=== PATIENT | female | born 1960 | race Caucasian/White ===

== ENCOUNTER 2017-02-01 23:09 | Emergency (ER) | payer MEDICAID ==
[2017-02-01 23:09] VITALS: PULSE 71
[2017-02-02] MEDS ORDERED: Sodium Chloride 0.9% 500 ML IV ONE (00:15)
[2017-02-02] MEDS ORDERED: Albuterol-Ipratrop 3 mg / 0.5 (3 ml) UD IH STA (00:17)
[2017-02-02] MEDS ORDERED: Albuterol-Ipratrop 3 mg / 0.5 (3 ml) UD ONE (00:44)
[2017-02-02 00:53] LABS: BASO # 0.2 K/uL (0.0-0.2); BASO % 1.2 % (0.0-2.0); EOS # 0.3 K/uL (0.0-0.7); EOS % 1.9 % (0.0-4.0); HEMATOCRIT 35.3 % (34.0-47.0); LYMPH # 2.6 K/uL (1.0-4.3); LYMPH % 17.6 % (20.0-40.0); MEAN CELL VOLUME 80.9 fL (81.0-99.0); MEAN CORPUSCULAR HEMOGLOBIN 26.3 pg (27.0-31.0); MEAN CORPUSCULAR HGB CONC 32.5 g/dL (33.0-37.0); MEAN PLATELET VOLUME 7.7 fL (7.2-11.7); MONO # 0.6 K/uL (0.0-0.8); MONO % 4.4 % (0.0-10.0); RED CELL DISTRIBUTION WIDTH 15.9 % (11.5-14.5); WHITE BLOOD COUNT 14.5 K/uL (4.8-10.8)
[2017-02-02] MEDS ORDERED: Sodium Chloride 0.9% 1,000 ML ONE (00:53)
[2017-02-02 00:58] LABS: RBC URINE 1 /hpf (0-3); URINE BILIRUBIN NEGATIVE (NEGATIVE); URINE BLOOD NEGATIVE (NEGATIVE); URINE COLOR Yellow (YELLOW); URINE GLUCOSE (UA) NORMAL (Normal); URINE KETONE NEGATIVE (NEGATIVE); URINE LEUKOCYTE ESTERASE NEG Leu/uL (Negative); URINE PROTEIN 1+ mg/dL (NEGATIVE); URINE UROBILINOGEN NORMAL mg/dL (0.2-1.0); WBC URINE 1 /hpf (0-5)
--- NOTE | 2017-02-02 00:58 | C.PDOC ---
Time Seen by Provider: 02/02/17 00:02 Chief Complaint (Nursing): Flu-like Symptoms History Per: Patient Onset/Duration Of Symptoms: Days (1) Current Symptoms Are (Timing): Still Present Location Of Pain: Diffuse Myalgias Associated Symptoms: Cough, Myalgias Severity: Moderate Additional History Per: Prior Records Past Medical History Reviewed: Historical Data, Nursing Documentation, Vital Signs Vital Signs: Last Vital Signs Temp 99.3 F 02/01/17 23:23 Pulse 88 02/01/17 23:23 Resp 20 02/01/17 23:23 BP 148/88 02/01/17 23:23 Pulse Ox 94 L 02/02/17 01:00 - Medical History PMH: Anemia, Anxiety, Arthritis, Asthma, Cardia Arrhythmia, CHF, COPD, Depression, Emphysema, HTN, Osteoporosis, Rheumatoid Arthritis, Schizophrenia, Sleep Apnea Other PMH: Lupus Surgical History: Cholecystectomy, Tonsillectomy, Other Surgeries: IVC filter - [facility] Procedures NASAL LACERATION SUTURE (11/07/13) NON-INVASIVE MECHANICAL VENTILATION (07/19/14) TETANUS TOXOID ADMINIST (11/07/13) Family History: States: Unknown Family Hx, [place] (Mother) - Social History Hx Tobacco Use: No Hx Alcohol Use: Yes Hx Substance Use: No - Immunization History Hx Tetanus Toxoid Vaccination: Yes Hx Influenza Vaccination: No Hx Pneumococcal Vaccination: Yes Review Of Systems Except As Marked, All Systems Reviewed And Found Negative. Constitutional: Negative for: Fever Cardiovascular: Positive for: Chest Pain Respiratory: Positive for: Cough, Shortness of Breath (mild). Negative for: Hemoptysis Gastrointestinal: Negative for: Vomiting, Abdominal Pain, Diarrhea Genitourinary: Negative for: Dysuria Musculoskeletal: Positive for: Leg Pain. Negative for: Neck Pain, Back Pain Neurological: Negative for: Weakness, Numbness, Seizures, Altered Mental Status Physical Exam - Physical Exam Appears: No Acute Distress, Chronically Ill Skin: Warm, Dry Head: Atraumatic Eye(s): bilateral: PERRL, EOMI Neck: Normal ROM, Supple Cardiovascular: Rhythm Regular Respiratory: Normal Breath Sounds, No Accessory Muscle Use Gastrointestinal/Abdominal: Soft, No Tenderness Back: No CVA Tenderness Extremity: Normal ROM Neurological/Psych: Oriented x3, Normal Motor, Normal Sensation ED Course And Treatment - Laboratory Results Result Diagrams: 03/29/17 00:49 O2 Sat by Pulse Oximetry: 94 Disposition - Disposition Disposition Time: 01:00 Condition: FAIR - Clinical Impression Clinical Impression: SLE (systemic lupus erythematosus) Physician Patient Turnover Patient Signed Over To: Dakota Anderson Handoff Comments: to f/up labs and reassess pt after meds.
[2017-02-02 01:04] LABS: CHLORIDE 100 mmol/L (98-107); POTASSIUM 3.5 mmol/L (3.6-5.2); SODIUM 141 mmol/L (132-148)
[2017-02-02 01:06] LABS: AST/SGOT 27 U/L (14-36); BILIRUBIN,TOTAL 0.3 mg/dL (0.2-1.3); CARBON DIOXIDE 28 mmol/L (22-30); GFR AFRICAN-AMERICAN > 60
[2017-02-02 01:07] LABS: ALKALINE PHOSPHATASE 71 U/L (38-126); ALT/SGPT 35 U/L (9-52); BLOOD UREA NITROGEN 12 mg/dL (7-17); CALCIUM 8.5 mg/dl (8.6-10.4); GLUCOSE,RANDOM 144 mg/dL (65-105); TOTAL PROTEIN 7.2 g/dL (6.3-8.3)
[2017-02-02 02:24] VITALS: BP 150/77; PULSE 88; RESP 22; TEMP 99; O2SAT 95
--- NOTE | 2017-02-02 09:11 | RAD ---
PROCEDURE: CHEST RADIOGRAPH, 1 VIEW HISTORY: Cough. Left umm-cath. COMPARISON: 01/04/2017 FINDINGS: LUNGS: Mild venous congestion. Lines and tubes stable position. Elevated right hemidiaphragm. Patchy left basilar airspace opacity. PLEURA: As above. CARDIOVASCULAR: Normal. OSSEOUS STRUCTURES: No significant abnormalities. VISUALIZED UPPER ABDOMEN: Normal. OTHER FINDINGS: None. IMPRESSION: Mild venous congestion. Lines and tubes stable position. Elevated right hemidiaphragm. Patchy left basilar airspace opacity.
--- NOTE | 2017-02-02 10:43 | CARD ---
APPROVED REPORT EKG Measurement Heart [id number] <Conclusion> Normal sinus rhythm Nonspecific ST and T wave abnormality Abnormal ECG
== END 2017-02-02 02:26 | disposition home or self-care (01) ==
LOC: C.ER 23:09
DX: M32.9 Systemic lupus erythematosus, unspecified (principal)
CPT/HCPCS: 71010; 80053; 80162; 81001; 83880; 84484; 85025; 87804; 93005; 96361; 96374; 96375; 99285; C9113; J1885; J2930; J7040

== ENCOUNTER 2017-07-15 19:40 | Emergency (ER) | payer MEDICAID ==
[2017-07-15 19:40] VITALS: PULSE 71
[2017-07-15 20:01] VITALS: TEMP 98; O2SAT 98
[2017-07-15] MEDS ORDERED: Sodium Chloride 0.9% 1,000 ML IV ONE (20:59)
[2017-07-15] MEDS ORDERED: Sodium Chloride 0.9% 500 ML IV ONE (20:59)
[2017-07-15] MEDS ORDERED: Iohexol 240 (50 ml) PO ONE (21:00)
[2017-07-15] MEDS ORDERED: Nalbuphine 20 mg/ml Inj (1 ml) IVP STA (21:01)
--- NOTE | 2017-07-15 21:10 | C.PDOC ---
History Of Present Illness <Freddie Lujan E - Last Filed: 07/15/17 22:26> <MorseKirillAgustín R - Last Filed: 07/16/17 03:20> Patient is a 55 y/o female who presents to the ED with a complaint of abdominal pain. Patient reports having diarrhea for the past 2 weeks, and admits to treating pain with 2 bottles of pepto bismol since. Denies nausea/vomiting, SOB , dysuria, fever, and change in appetite. (Agustín Morse) <TaiLuisitoDevin - Last Filed: 07/15/17 22:26> History Per: Patient History/Exam Limitations: no limitations Onset/Duration Of Symptoms: Days (x2 weeks. ) Current Symptoms Are (Timing): Still Present Associated Symptoms: Diarrhea. denies: Nausea, Vomiting Recent travel outside of the [place]: No <Agustín Morse - Last Filed: 07/16/17 03:20> Time Seen by Provider: 07/15/17 20:12 Chief Complaint (Nursing): GI Problem Past Medical History Reviewed: Historical Data, Nursing Documentation, Vital Signs - Medical History PMH: Anemia, Anxiety, Arthritis, Asthma, Cardia Arrhythmia, CHF, COPD, Depression, Emphysema, HTN, Osteoporosis, Rheumatoid Arthritis, Schizophrenia, Sleep Apnea Denies: Chronic Kidney Disease Surgical History: Cholecystectomy, Tonsillectomy, Family History: States: Unknown Family Hx, [place] (Mother) - Social History Hx Tobacco Use: No Hx Alcohol Use: Yes Hx Substance Use: No - Immunization History Hx Tetanus Toxoid Vaccination: Yes Hx Influenza Vaccination: No Hx Pneumococcal Vaccination: Yes <Agustín Morse - Last Filed: 07/16/17 03:20> Vital Signs: Last Vital Signs Temp 98 F 07/15/17 19:54 Pulse 80 07/15/17 19:54 Resp 18 07/15/17 19:54 BP 121/79 07/15/17 19:54 Pulse Ox 98 07/16/17 03:17 - [facility] Procedures NASAL LACERATION SUTURE (11/07/13) NON-INVASIVE MECHANICAL VENTILATION (07/19/14) TETANUS TOXOID ADMINIST (11/07/13) Review Of Systems Constitutional: Negative for: Fever Cardiovascular: Negative for: Chest Pain Respiratory: Negative for: Shortness of Breath Gastrointestinal: Positive for: Abdominal Pain, Diarrhea. Negative for: Nausea , Vomiting Genitourinary: Negative for: Dysuria <LitoAgustín Elias - Last Filed: 07/16/17 03:20> Physical Exam - Physical Exam Appears: Well, Non-toxic Skin: Normal Color, Warm, Dry Head: Atraumatic, Normacephalic Oral Mucosa: Moist Chest: Symmetrical Cardiovascular: Rhythm Regular, No Murmur Respiratory: Normal Breath Sounds, No Rales, No Rhonchi, No Wheezing Gastrointestinal/Abdominal: Bowel Sounds (hyperactive), Tenderness (R side), No Guarding, No Rebound, Other (obese) Rectal: Normal Exam, Heme Negative, No Mass, No Tenderness Back: Normal Inspection Extremity: Normal ROM (x4) Neurological/Psych: Oriented x3, Normal Speech, Normal Cognition <Agustín Morse Jada - Last Filed: 07/16/17 03:20> ED Course And Treatment - Laboratory Results Result Diagrams: 07/15/17 21:50 07/15/17 21:50 <Freddie Lujan E - Last Filed: 07/15/17 22:26> - Laboratory Results Result Diagrams: 07/15/17 21:50 07/15/17 21:50 O2 Sat by Pulse Oximetry: 98 (room air) Pulse Ox Interpretation: Normal - CT Scan/US A/P Other Rad Studies (CT/US): Interpreted By Me, Read By Radiologist CT/US Interpretation: IMPRESSION: Atelectasis/scarring/hypoventilatory changes at the lung bases. Hepatosplenomegaly. IVC filter noted, prongs extend beyond wall limits. Small fat-containing umbilical hernia. Distal esophageal wall appears thickened. Colonic diverticula. Approximately 3.5 cm left adnexal cyst. Further evaluation with dedicated ultrasound recommended. Additional details/findings as above. US Pelvis/Transvag Other Rad Studies (CT/US): Interpreted By Me, Read By Radiologist CT/US Interpretation: IMPRESSION: Left ovarian cyst for which followup is recommended to ensure resolution. Progress Note: CT A/P, US abd, and UA ordered; Bentyl, Toradol, Nubain, Omnipaque, and IV fluids administered. 3:17am: no episodes of vomiting or diarrhea recorded. <Agustín Morse - Last Filed: 07/16/17 03:20> Medical Decision Making <Freddie Lujan E - Last Filed: 07/15/17 22:26> <Agustín Morse - Last Filed: 07/16/17 03:20> Medical Decision Making: Initially evaluated by MS4 under my supervision who did an adequate eval. Was asked by pt to whom he would be reported and when answered that the MS4 would report to Dr. Lujan, pt immediately argumentative and confrontational and demanded to be evaled by another physician. This MD asked pt what were her concerns and she immediately claimed she refused to discuss her complaints further. Pt liason informed and Dr. Morse appraised of this pt's situation. [place] had [place], extensive benzo and narcotics regimen from multiple prescribers. No further contact w this pt. (Freddie Lujan) Disposition <Freddie Lujan - Last Filed: 07/15/17 22:26> Counseled Patient/Family Regarding: Diagnosis - Disposition Disposition Time: 03:09 - POA Present On Arrival: None <Agustín Morse - Last Filed: 07/16/17 03:20> - Disposition Referrals: Isaac Willis MD [Primary Care Provider] - Disposition: HOME/ ROUTINE Condition: STABLE Prescriptions: traMADol/Acetaminophen [Ultracet 325 MG-37.5 MG] 1 tab PO Q4 #20 tab Instructions: Ovarian Cyst (ED), Uterine Fibroids (ED), Abdominal Pain (ED) Forms: [facility] ([place]izen [place]), Gen Discharge Inst Lithuanian Print Language: KOSOVAN - Clinical Impression Clinical Impression: Abdominal pain, Ovarian cyst, Uterine fibroid <Freddie Lujan - Last Filed: 07/15/17 22:26> - Scribe Statement The provider has reviewed the documentation as recorded by the Scribe <Agustín Morse - Last Filed: 07/16/17 03:20> - Scribe Statement Lora Albarran All medical record entries made by the Scribe were at my direction and personally dictated by me. I have reviewed the chart and agree that the record accurately reflects my personal performance of the history, physical exam, medical decision making, and the department course for this patient. I have also personally directed, reviewed, and agree with the discharge instructions and disposition. (Agustín Morse)
[2017-07-15] MEDS ORDERED: Iohexol 240 (50 ml) ONE (21:26)
[2017-07-15 22:00] LABS: BASO # 0.1 K/uL (0.0-0.2); BASO % 1.1 % (0.0-2.0); EOS # 0.2 K/uL (0.0-0.7); EOS % 1.6 % (0.0-4.0); HEMATOCRIT 41.9 % (34.0-47.0); LYMPH # 2.9 K/uL (1.0-4.3); LYMPH % 24.3 % (20.0-40.0); MEAN CELL VOLUME 80.7 fL (81.0-99.0); MEAN CORPUSCULAR HGB CONC 32.1 g/dL (33.0-37.0); MEAN PLATELET VOLUME 8.2 fL (7.2-11.7); MONO # 0.6 K/uL (0.0-0.8); MONO % 4.7 % (0.0-10.0); RED CELL DISTRIBUTION WIDTH 16.9 % (11.5-14.5)
[2017-07-15 22:02] LABS: CHLORIDE 105 mmol/L (98-107); POTASSIUM 4.1 mmol/L (3.6-5.2); SODIUM 144 mmol/L (132-148)
[2017-07-15 22:04] LABS: ALB/GLOB RATIO 1.1 (1.0-2.1); ALKALINE PHOSPHATASE 80 U/L (38-126); AST/SGOT 38 U/L (14-36); BILIRUBIN,TOTAL 0.6 mg/dL (0.2-1.3); CARBON DIOXIDE 24 mmol/L (22-30); GFR AFRICAN-AMERICAN > 60; TOTAL PROTEIN 8.2 g/dL (6.3-8.3)
[2017-07-15 22:05] LABS: ALT/SGPT 46 U/L (9-52); BLOOD UREA NITROGEN 16 mg/dL (7-17); CALCIUM 9.1 mg/dl (8.6-10.4); GLUCOSE,RANDOM 86 mg/dL (65-105); RBC URINE 1 /hpf (0-3); TRANSITIONAL EPITHIAL < 1 /hpf (0-3); URINE BACTERIA RARE (<OCC); URINE BILIRUBIN NEGATIVE (NEGATIVE); URINE BLOOD NEGATIVE (NEGATIVE); URINE COLOR Yellow (YELLOW); URINE GLUCOSE (UA) NORMAL (Normal); URINE KETONE NEGATIVE (NEGATIVE); URINE LEUKOCYTE ESTERASE NEG Leu/uL (Negative); URINE PROTEIN 1+ mg/dL (NEGATIVE); WBC URINE 1 /hpf (0-5)
[2017-07-15] MEDS ORDERED: Iodixanol 320 MG/ML 100 ML BOTTLE IV ONE (22:24)
--- NOTE | 2017-07-16 00:03 | CT ---
EXAM: CT Abdomen and Pelvis With Intravenous Contrast CLINICAL HISTORY: 56 years old, female; Pain and signs and symptoms; Vomiting; Abdominal pain; Generalized; Additional info: Abd pain TECHNIQUE: Axial computed tomography images of the abdomen and pelvis with intravenous contrast. All CT scans at this facility use one or more dose reduction techniques, viz.: automated exposure control; ma/kV adjustment per patient size (including targeted exams where dose is matched to indication; i.e. head); or iterative reconstruction technique. Coronal and sagittal reformatted images were created and reviewed. CONTRAST: 100 mL of VISIPAQUE 320 administered intravenously. COMPARISON: No relevant prior studies available. FINDINGS: Atelectasis/scarring/hypoventilatory changes at the lung bases. Hepatosplenomegaly. Status post cholecystectomy. The pancreas and adrenal glands demonstrate no acute abnormalities. The kidneys are symmetric with no evidence of hydronephrosis. The aorta is unremarkable. IVC filter noted, prongs extend beyond wall limits. Small fat-containing umbilical hernia. Enteric contrast within stomach and small bowel the time of imaging. Distal esophageal wall appears thickened. No small bowel obstruction. Colonic diverticula. Approximately 3.5 cm left adnexal cyst. Further evaluation with dedicated ultrasound recommended. No ascites. No free air. Degenerative changes, most notable at L5-S1. IMPRESSION: Atelectasis/scarring/hypoventilatory changes at the lung bases. Hepatosplenomegaly. IVC filter noted, prongs extend beyond wall limits. Small fat-containing umbilical hernia. Distal esophageal wall appears thickened. Colonic diverticula. Approximately 3.5 cm left adnexal cyst. Further evaluation with dedicated ultrasound recommended. Additional details/findings as above.
[2017-07-16] MEDS ORDERED: Nalbuphine 20 mg/ml Inj (1 ml) IVP STA (00:19)
[2017-07-16] MEDS ORDERED: Sodium Chloride 0.9% 2,000 ML ONE (02:25)
--- NOTE | 2017-07-16 03:03 | US ---
EXAM: US Pelvis Complete, Transabdominal US Pelvis, Transvaginal CLINICAL HISTORY: 56 years old, female; Pain; Pelvic pain; Additional info: Left adnexal mass/ cyst TECHNIQUE: Real-time transabdominal and transvaginal pelvic ultrasound (complete) with image documentation. Transvaginal imaging was used for better evaluation of the endometrium and adnexa. COMPARISON: No relevant prior studies available. FINDINGS: The uterus measures approximately 9 x 4.5 x 4 cm. The endometrium measures 4 mm. There is a 1.3 cm fibroid in the lower anterior uterus. The right ovary is suboptimally visualized. There is a 3.1 cm left ovarian cyst corresponding to that seen on CT. There is suggestion of a small amount of internal echoes. Vascular waveforms are demonstrated in the left ovary. IMPRESSION: Left ovarian cyst for which followup is recommended to ensure resolution. EXAM: US Pelvis, Transvaginal EXAM DATE/TIME: 07/16/2017 12:23 AM CLINICAL HISTORY: 56 years old, female; Pain; Pelvic pain; Additional info: Left adnexal mass/ cyst TECHNIQUE: Real-time transvaginal pelvic ultrasound (complete) with image documentation. Transvaginal imaging was used for better evaluation of the endometrium and adnexa. COMPARISON: CT - e+1 ABDOMEN/PELVIS PO/IV CONTRAST 07/15/2017 10:58:37 PM FINDINGS: The uterus measures approximately 9 x 4.5 x 4 cm. The endometrium measures 4 mm. There is a 1.3 cm fibroid in the lower anterior uterus. The right ovary is suboptimally visualized. There is a 3.1 cm left ovarian cyst corresponding to that seen on CT. There is suggestion of a small amount of internal echoes. Vascular waveforms are demonstrated in the left ovary.
[2017-07-16 03:27] VITALS: BP 120/70; PULSE 70; RESP 14
== END 2017-07-16 03:26 | disposition home or self-care (01) ==
LOC: C.ER 19:40
DX: D25.9 Leiomyoma of uterus, unspecified (principal); R10.2 Pelvic and perineal pain; N83.202 Unspecified ovarian cyst, left side
CPT/HCPCS: 74177; 76830; 76856; 80053; 81001; 83690; 85025; 96372; 96374; 96375; 96376; 99284; G0328; J0500; J1885; J2405; J7040; Q9966; Q9967

== ENCOUNTER 2017-08-14 18:22 | Emergency (ER) | payer MEDICAID ==
[2017-08-14 18:23] VITALS: PULSE 71
[2017-08-14 18:32] VITALS: BMI 39.5
--- NOTE | 2017-08-14 19:41 | C.PDOC ---
History Of Present Illness 56 year old female, history of lupus, rheumatoid arthritis, COPD, CAD, presents to the ED for evaluation of pain in posterior neck radiating up to her posterior head which is intermittent x 2 days. She notes a history of migraines and states pain is similar but lasting longer than her usual mirgraine. Pt c/o of photophobia, nausea. Patient also complaining of generalized body aches related to her chronic RA and lupus, not changed from baseline. She denies recent illness, cough, runny nose or dizziness. She has not taken any pain medications prior to arrival as she ran out of her chronic pain meds. Pt is requesting morphine 6 mg IM. Time Seen by Provider: 08/14/17 19:19 Chief Complaint (Nursing): Headache History Per: Patient History/Exam Limitations: no limitations Onset/Duration Of Symptoms: Intermittent Episodes Current Symptoms Are (Timing): Still Present Severity: Severe Pain Scale Rating Of: 10 Quality: Sharp, Pressure Associated Symptoms: Blurred Vision Past Medical History Reviewed: Historical Data, Nursing Documentation, Vital Signs Vital Signs: Last Vital Signs Temp 98.1 F 08/14/17 20:57 Pulse 76 08/14/17 20:57 Resp 18 08/14/17 20:57 BP 137/92 H 08/14/17 20:57 Pulse Ox 95 08/15/17 04:19 - Medical History PMH: Anemia, Anxiety, Arthritis, Asthma, Cardia Arrhythmia, CHF, COPD, Depression, Emphysema, HTN, Osteoporosis, Rheumatoid Arthritis, Schizophrenia, Sleep Apnea Denies: Chronic Kidney Disease Surgical History: Cholecystectomy, Tonsillectomy, - [facility] Procedures NASAL LACERATION SUTURE (11/07/13) NON-INVASIVE MECHANICAL VENTILATION (07/19/14) TETANUS TOXOID ADMINIST (11/07/13) Family History: States: Unknown Family Hx, [place] (Mother) - Social History Hx Tobacco Use: No Hx Alcohol Use: Yes Hx Substance Use: No - Immunization History Hx Tetanus Toxoid Vaccination: Yes Hx Influenza Vaccination: No Hx Pneumococcal Vaccination: Yes Review Of Systems ENT: Negative for: Nose Congestion Respiratory: Negative for: Cough Musculoskeletal: Positive for: Neck Pain, Other (Generalized myalgias ) Neurological: Positive for: Headache, Dizziness Physical Exam - Physical Exam Appears: Non-toxic, No Acute Distress Skin: Normal Color, Warm, Dry Head: Atraumatic, Normacephalic Eye(s): bilateral: Normal Inspection Neck: Normal, Normal ROM, No Midline Cervical Tenderness, Supple Cardiovascular: Rhythm Regular, No Murmur Respiratory: Normal Breath Sounds, No Wheezing Gastrointestinal/Abdominal: Normal Exam, Soft, No Tenderness Extremity: No Pedal Edema, No Calf Tenderness, No Deformity Extremity: Bilateral: Atraumatic, Normal Color And Temperature Neurological/Psych: Oriented x3, Normal Speech, Normal Cognition, Normal Motor, Normal Sensation Gait: Steady ED Course And Treatment O2 Sat by Pulse Oximetry: 95 Pulse Ox Interpretation: Normal Progress Note: Pt is in pain management program, requesting iM narcotics, pt states she usually get a headache with 'Bad Lupus pain" and pt was advised to follow up wit pMD for pain managemnet and return precautions were d/w pt who understand them. tramadol and prednisone PO with some pain improvement Disposition Counseled Patient/Family Regarding: Diagnosis, Need For Followup, Rx Given - Disposition Referrals: Isaac Willis MD [Staff Provider] - Disposition: HOME/ ROUTINE Disposition Time: 20:39 Condition: STABLE Additional Instructions: Please follow up with PMD Continue current management Follow up with PMD Return to ER if worse Prescriptions: predniSONE [Prednisone] 40 mg PO DAILY #8 tab Instructions: Musculoskeletal Pain (ED) Forms: [facility] (Hungarian) - Clinical Impression Clinical Impression: Chronic pain - Scribe Statement The provider has reviewed the documentation as recorded by the Scribe Dougie Francois
[2017-08-14] MEDS ORDERED: Tramadol 25 mg PO STA (19:59)
[2017-08-14 20:58] VITALS: BP 137/92; PULSE 76; RESP 18; TEMP 98.1
[2017-08-15 04:19] VITALS: O2SAT 95
== END 2017-08-14 20:58 | disposition home or self-care (01) ==
LOC: C.ER 18:22
DX: G89.29 Other chronic pain (principal); M06.9 Rheumatoid arthritis, unspecified; M19.90 Unspecified osteoarthritis, unspecified site; M32.9 Systemic lupus erythematosus, unspecified; I25.10 Atherosclerotic heart disease of native coronary artery without angina pectoris; J44.9 Chronic obstructive pulmonary disease, unspecified

== ENCOUNTER 2017-11-01 15:20 | Emergency (ER) | payer MEDICAID ==
[2017-11-01 15:20] VITALS: PULSE 71; BMI 39.5
[2017-11-01 16:55] VITALS: RESP 18
[2017-11-01 17:30] LABS: BASO # 0.1 K/uL (0.0-0.2); BASO % 0.7 % (0.0-2.0); EOS # 0.2 K/uL (0.0-0.7); EOS % 2.8 % (0.0-4.0); HEMATOCRIT 35.8 % (34.0-47.0); LYMPH % 27.2 % (20.0-40.0); MEAN CELL VOLUME 80.6 fL (81.0-99.0); MEAN CORPUSCULAR HEMOGLOBIN 26.8 pg (27.0-31.0); MEAN CORPUSCULAR HGB CONC 33.3 g/dL (33.0-37.0); MEAN PLATELET VOLUME 7.3 fL (7.2-11.7); MONO # 0.6 K/uL (0.0-0.8); MONO % 8.3 % (0.0-10.0); WHITE BLOOD COUNT 7.2 K/uL (4.8-10.8)
--- NOTE | 2017-11-01 17:37 | RAD ---
HISTORY: Cough, wheezing COMPARISON: Chest x-ray performed 02/02/17 TECHNIQUE: Chest PA and lateral FINDINGS: Examination limited by habitus. Single lead left-sided central venous catheter extends to the cavoatrial junction. LUNGS: Biapical pleural thickening. Subtle opacity at the right lung base ; developing infiltrate cannot be entirely excluded. Please note that chest x-ray has limited sensitivity for the detection of pulmonary masses. PLEURA: No significant pleural effusion identified. No definite pneumothorax . CARDIOVASCULAR: Cardiomegaly. OSSEOUS STRUCTURES: Degenerative changes. VISUALIZED UPPER ABDOMEN: Elevation of the right hemidiaphragm. OTHER FINDINGS: None. IMPRESSION: Single lead left-sided central venous catheter extends the cavoatrial junction. Borderline cardiomegaly. Biapical pleural thickening. Subtle opacity at the right lung base ; developing infiltrate cannot be entirely excluded. Correlate clinically.
[2017-11-01] MEDS: Albuterol-Ipratrop 3 mg / 0.5 (3 ml) UD IH SCH ×3 (17:40→18:01)
[2017-11-01 17:43] LABS: ALKALINE PHOSPHATASE 78 U/L (38-126); ALT/SGPT 25 U/L (9-52); AST/SGOT 29 U/L (14-36); BILIRUBIN,TOTAL 0.4 mg/dL (0.2-1.3); BLOOD UREA NITROGEN 15 mg/dL (7-17); CARBON DIOXIDE 30 mmol/L (22-30); CHLORIDE 99 mmol/L (98-107); GFR AFRICAN-AMERICAN > 60; GLUCOSE,RANDOM 139 mg/dL (65-105); POTASSIUM 3.9 mmol/L (3.6-5.2); SODIUM 136 mmol/L (132-148); TOTAL PROTEIN 7.6 g/dL (6.3-8.3)
[2017-11-01] MEDS ORDERED: Albuterol-Ipratrop 3 mg / 0.5 (3 ml) UD ONE (17:59)
--- NOTE | 2017-11-01 18:48 | C.PDOC ---
Time Seen by Provider: 11/01/17 15:34 Chief Complaint (Nursing): Cough, Cold, Congestion History Per: Patient Onset/Duration Of Symptoms: Days (2) Current Symptoms Are (Timing): Still Present Associated Symptoms: Fever, Sore Throat, Cough, Sputum, Myalgias, Nasal Congestion Severity: Moderate Additional History Per: Prior Records Past Medical History Reviewed: Historical Data, Nursing Documentation, Vital Signs Vital Signs: Last Vital Signs Temp 98.2 F 11/01/17 15:24 Pulse 72 11/01/17 15:24 Resp 18 11/01/17 16:51 BP 144/83 11/01/17 15:24 Pulse Ox 97 11/01/17 16:51 - Medical History PMH: Anemia, Anxiety, Arthritis, Asthma, Cardia Arrhythmia, CHF, COPD, Depression, Emphysema, HTN, Osteoporosis, Rheumatoid Arthritis, Schizophrenia, Sleep Apnea Surgical History: Cholecystectomy, Tonsillectomy, - [facility] Procedures NASAL LACERATION SUTURE (11/07/13) NON-INVASIVE MECHANICAL VENTILATION (07/19/14) TETANUS TOXOID ADMINIST (11/07/13) Family History: States: Unknown Family Hx, [place] (Mother) - Social History Hx Tobacco Use: No Hx Alcohol Use: Yes Hx Substance Use: No - Immunization History Hx Tetanus Toxoid Vaccination: Yes Hx Influenza Vaccination: No Hx Pneumococcal Vaccination: Yes Review Of Systems Except As Marked, All Systems Reviewed And Found Negative. Constitutional: Positive for: Fever, Malaise ENT: Positive for: Nose Congestion, Throat Pain (mild). Negative for: Ear Pain Cardiovascular: Negative for: Chest Pain Respiratory: Positive for: Cough, Wheezing. Negative for: Hemoptysis Gastrointestinal: Negative for: Vomiting, Abdominal Pain, Diarrhea Genitourinary: Negative for: Dysuria Musculoskeletal: Negative for: Neck Pain, Back Pain Skin: Negative for: Rash Neurological: Negative for: Weakness, Numbness, Seizures, Altered Mental Status Physical Exam - Physical Exam Appears: Non-toxic, No Acute Distress Skin: Normal Color, Warm, Dry, No Rash Head: Atraumatic, Normacephalic Eye(s): bilateral: Normal Inspection, PERRL, EOMI Oral Mucosa: Moist, No Drooling, No Trismus Throat: Erythema, No Exudate, No Drooling, No Mass Neck: Normal ROM, Supple Lymphatic: Adenopathy (right submandibular (vs. Sialadenitis)) Chest: Other (left side port) Cardiovascular: Rhythm Regular Respiratory: No Accessory Muscle Use, Wheezing Gastrointestinal/Abdominal: Soft, No Tenderness Back: No CVA Tenderness Extremity: Normal ROM Neurological/Psych: Oriented x3, Normal Speech, Normal Motor, Normal Sensation ED Course And Treatment - Laboratory Results Result Diagrams: 11/01/17 17:27 11/01/17 17:27 Lab Interpretation: No Acute Changes O2 Sat by Pulse Oximetry: 97 Pulse Ox Interpretation: Normal - Radiology CXR: Viewed By Me, Read By Radiologist CXR Interpretation: Yes: No Acute Disease Progress - Interventions Interventions:: Observation - Medications Administered Inhaled nebulized: Anticholinergic, Beta-2 agonist Intravenous: Corticosteroid, NSAID - Data Reviewed Data Reviewed: Lab, Diagnostic imaging, Old records - Patient Status Patient status: Mostly improved - Continuity of Care Discussed patient case with:: Patient, Family-HIPPA compliant, ED Nurse - Patient Plan Patient Plan: Discharge, F/U with PCP, Continue present meds Disposition Counseled Patient/Family Regarding: Studies Performed, Diagnosis, Need For Followup, Rx Given - Disposition Referrals: Isaac Willis MD [Staff Provider] - Disposition: HOME/ ROUTINE Disposition Time: 18:51 Condition: IMPROVED Additional Instructions: Follow up with your doctor. Return to the ER if you develop high fever, trouble breathing or swallowing, worsening of symptoms or if you have any other concerns. Prescriptions: Amoxicillin/Clavulanate [Augmentin 875 MG-125 MG] 1 tab PO BID #14 tab predniSONE [predniSONE Tab] 2 tab PO DAILY #10 tab Instructions: Acute Bronchitis (ED) - Clinical Impression Clinical Impression: Respiratory tract infection
[2017-11-01 19:03] VITALS: BP 138/80; PULSE 70; TEMP 98.1; O2SAT 96
== END 2017-11-01 19:03 | disposition home or self-care (01) ==
LOC: C.ER 15:20
DX: J98.8 Other specified respiratory disorders (principal); I10 Essential (primary) hypertension; I50.9 Heart failure, unspecified; J44.9 Chronic obstructive pulmonary disease, unspecified; M81.0 Age-related osteoporosis without current pathological fracture; M06.9 Rheumatoid arthritis, unspecified
CPT/HCPCS: 71020; 80053; 85025; 87804; 94640; 96374; 96375; 99285; C9113; J1885; J2930

== ENCOUNTER 2017-12-31 04:03 | Observation (INO) | payer MEDICAID ==
[2017-12-31 04:04] VITALS: BMI 39.5
[2017-12-31] MEDS ORDERED: Sodium Chloride 0.9% 1,000 ML IV STA (05:19)
[2017-12-31 05:42] LABS: BASO # 0.1 K/uL (0.0-0.2); BASO % 0.8 % (0.0-2.0); EOS # 0.4 K/uL (0.0-0.7); EOS % 2.3 % (0.0-4.0); HEMOGLOBIN 11.4 g/dL (11.0-16.0); LYMPH # 4.6 K/uL (1.0-4.3); LYMPH % 27.2 % (20.0-40.0); MEAN CELL VOLUME 80.7 fL (81.0-99.0); MEAN CORPUSCULAR HGB CONC 33.5 g/dL (33.0-37.0); MEAN PLATELET VOLUME 7.5 fL (7.2-11.7); MONO # 1.1 K/uL (0.0-0.8); MONO % 6.3 % (0.0-10.0); NEUT # 10.7 K/uL (1.8-7.0); NEUT % 63.4 % (50.0-75.0); RBC 4.22 Mil/uL (3.80-5.20); RED CELL DISTRIBUTION WIDTH 15.8 % (11.5-14.5)
[2017-12-31 05:44] LABS: WHITE BLOOD COUNT 16.8 K/uL (4.8-10.8)
[2017-12-31] MEDS ORDERED: Sodium Chloride 0.9% 1,000 ML ONE (05:45)
[2017-12-31] MEDS ORDERED: Morphine 4 MG/ML VIAL ONE ×2 (05:45→12:01)
[2017-12-31 05:48] LABS: PROTHROMBIN TIME 11.7 SECONDS (9.7-12.2)
[2017-12-31 05:53] LABS: ALB/GLOB RATIO 1.2 (1.0-2.1); ALBUMIN 3.8 g/dL (3.5-5.0); ALT/SGPT 27 U/L (9-52); AST/SGOT 22 U/L (14-36); BLOOD UREA NITROGEN 19 mg/dL (7-17); CALCIUM 7.9 mg/dl (8.6-10.4); GFR AFRICAN-AMERICAN > 60; GFR NON-AFRICAN AMERICAN > 60
[2017-12-31 06:03] LABS: CK-MB 1.19 ng/mL (0.0-3.38)
--- NOTE | 2017-12-31 06:17 | C.PDOC ---
History Of Present Illness Patient is a 57 y/o female, with a Hx of lupus, who presents to the ED with a complaint of a possible flare-up associated with diffuse body aches and chest pain. Patient reports to have gone out to eat Th night feeling fine, subsequently going to bed; patient then woke up at 1am complaining of body aches and chest pain, prompting ED visit. Patient has no other physical complaints at this time. Time Seen by Provider: 12/31/17 05:11 Chief Complaint (Nursing): Medical Clearance History Per: Patient History/Exam Limitations: no limitations Onset/Duration Of Symptoms: Hrs Current Symptoms Are (Timing): Still Present Recent travel outside of the [place]: No Past Medical History Reviewed: Historical Data, Nursing Documentation, Vital Signs Vital Signs: Last Vital Signs Temp 98.5 F 12/31/17 04:21 Pulse 85 12/31/17 06:52 Resp 16 12/31/17 06:52 BP 124/71 12/31/17 06:52 Pulse Ox 95 12/31/17 06:52 - Medical History PMH: Anemia, Anxiety, Arthritis, Asthma, Cardia Arrhythmia, CHF, COPD, Depression, Emphysema, HTN, Osteoporosis, Rheumatoid Arthritis, Schizophrenia, Sleep Apnea Denies: Chronic Kidney Disease Other PMH: Lupus Surgical History: Cholecystectomy, Tonsillectomy, - [facility] NASAL LACERATION SUTURE (11/07/13) NON-INVASIVE MECHANICAL VENTILATION (07/19/14) TETANUS TOXOID ADMINIST (11/07/13) Family History: States: [place] (Mother) - Social History Hx Tobacco Use: No Hx Alcohol Use: Yes Hx Substance Use: No - Immunization History Hx Tetanus Toxoid Vaccination: Yes Hx Influenza Vaccination: No Hx Pneumococcal Vaccination: Yes Review Of Systems Constitutional: Positive for: Malaise Cardiovascular: Positive for: Chest Pain. Negative for: Palpitations Respiratory: Negative for: Shortness of Breath Physical Exam - Physical Exam Appears: Well, Non-toxic, Other (uncomfortable) Skin: Normal Color, Warm, Dry, No Diaphoretic Head: Atraumatic, Normacephalic Eye(s): bilateral: Normal Inspection Oral Mucosa: Moist Chest: Symmetrical Cardiovascular: Rhythm Regular, No Murmur Respiratory: Normal Breath Sounds, No Accessory Muscle Use, No Rales, No Rhonchi , No Wheezing Gastrointestinal/Abdominal: Soft, No Tenderness, No Distention, No Guarding, No Rebound Neurological/Psych: Oriented x3, Normal Speech, Normal Cognition ED Course And Treatment - Laboratory Results Result Diagrams: 12/31/17 05:38 12/31/17 05:38 ECG Rhythm: Sinus Rhythm, ST/T Changes (ST/T abnormality in lateral leads) Interpretation Of ECG: shortened DE interval; prolonged QT interval. Rate From EC (bpm) O2 Sat by Pulse Oximetry: 96 Progress Note: EKG, CXR, UA, and blood work ordered. Morphine and IV fluids administered. Disposition - Disposition Disposition Time: 07:15 Condition: FAIR Forms: [facility] (Tristanian) - Clinical Impression Clinical Impression: Chest pain, SLE (systemic lupus erythematosus) - Scribe Statement The provider has reviewed the documentation as recorded by the Scribe Lora Albarran All medical record entries made by the Scribe were at my direction and personally dictated by me. I have reviewed the chart and agree that the record accurately reflects my personal performance of the history, physical exam, medical decision making, and the department course for this patient. I have also personally directed, reviewed, and agree with the discharge instructions and disposition. Physician Patient Turnover Patient Signed Over To: Dorothea Padilla Handoff Comments: dispo
--- NOTE | 2017-12-31 07:07 | RAD ---
Chest x-ray single frontal view History: Chest pain. Comparison: 11/01/2017 Findings: Mild to moderate venous congestion. Right hilar prominence. Patchy consolidative changes at the lateral aspect of right lung base. Lines and tubes in stable position. Radiopaque density projects over the left lung base, possibly external. Clinical correlation. Tortuous aorta. Degenerative changes in the spine and shoulders. Impression: Mild to moderate venous congestion. Right hilar prominence. Patchy consolidative changes at the lateral aspect of right lung base. Lines and tubes in stable position. Radiopaque density projects over the left lung base, possibly external. Clinical correlation.
[2017-12-31] MEDS ORDERED: Azithromycin 500mg/250ML NS 500 MG/250 ML BAG IVPB STA (07:46)
[2017-12-31 08:34] LABS: B-TYPE NATRIURETIC PEPTIDE 47.5 pg/mL (0-900)
[2017-12-31] MEDS: Enoxaparin 40 mg Syringe SC SCH (09:52)
[2017-12-31] MEDS: Pantoprazole 40 mg EC Tab PO SCH (09:52)
[2017-12-31 10:15] LABS: SQUAMOUS EPITHIAL 1 /hpf (0-5); URINE BILIRUBIN NEGATIVE (NEGATIVE); URINE BLOOD NEGATIVE (NEGATIVE); URINE CLARITY Clear (Clear); URINE COLOR Yellow (YELLOW); URINE GLUCOSE (UA) NORMAL (Normal); URINE HYALINE CAST 0-2 /lpf (0-2); URINE LEUKOCYTE ESTERASE NEG Leu/uL (Negative); URINE NITRATE NEGATIVE (NEGATIVE); URINE PROTEIN NEGATIVE (NEGATIVE); URINE UROBILINOGEN NORMAL mg/dL (0.2-1.0)
[2017-12-31 11:19] LABS: BARBITURATES, UR NEGATIVE (NEGATIVE); PHENCYCLIDINE, UR NEGATIVE (NEGATIVE)
[2017-12-31 11:22] LABS: BENZODIAZEPINES, UR POSITIVE (NEGATIVE); OPIATES, UR POSITIVE (NEGATIVE)
[2017-12-31] MEDS: Ciprofloxacin 400mg/200ml D5W 400 MG/200 ML BAG IVPB SCH ×2 (11:30→22:22)
[2017-12-31] MEDS ORDERED: Morphine 4 MG/ML VIAL IVP STA (11:30)
[2017-12-31] MEDS ORDERED: Azithromycin 500 MG in Sodium Chloride 0.9% 250 ML IVPB ONE (13:00)
--- NOTE | 2017-12-31 13:00 | CP.PCM.HP ---
<Kai Lambert - Last Filed: 12/31/17 15:13> History of Present Illness - History of Present Illness History of Present Illness: Ms. Lee is a 57 year old female with a PMHx of lupus, rheumatoid arthritis, chronic R leg DVT, CHF, COPD/asthma, sleep apnea who presents with diffuse body aches and chest pain which she attributes to a lupus flare-up. Upon arrival to the ED patient's CXR was concerning for pneunomia and admission warranted. As per the patient she states she spent her morning yesterday cleaning her house and felt fine. She went out to dinner with her family for her birthday and symptom onset was during this time, at around 9pm she began feeling diffuse body aches in her shoulders, arms, hands, legs and feet, typical of her lupus flare-ups. She returned home at 11:30pm, at which time she began to feel sharp, constant pain in her bilateral upper chest, right greater than left side, worse with breathing and palpating the area. She states that she does not normally get chest pain with her lupus flare-ups. She also reports feeling generally tired, weak, and short of breath. She went to sleep (requiring 4 pillows) but was awoken by pain at 1am. She called the ambulance at 1am for diffuse body pain and chest pain. She came to the emergency department anticipating that she had a lupus flare up but during her workup her CXR was concerning for PNA. Patient denies recent illness, fever, nausea, vomiting, diarrhea, constipation, urinary changes. She has been eating well. She last saw her feed elevator worker Dr. Matos on October 17, 2017 (she sees him every 3 months). She last saw her fire protection fabricator Dr. Choi 5 months ago and was started on a CPAP machine, but she states that the machine broke and she hasn't used it in the last 5 months. She reports a negative PPD 3 years ago. Last received PNA shot 5 years ago. Chest x-ray in the ED: Mild to moderate venous congestion. Right hilar prominence. Patchy consolidative changes at the lateral aspect of the right lung base. Lines and tubes in stable position. Radioopaque density projects over the left lung base, possibly external. PMD: [employer] Rn: Desmond Matos Folder Operator: Dr. Choi Tip Bander: Otilio Merrill PMH: rheumatoid arthritis, lupus, R leg chronic DVT (diagnosed 9 years ago; was initially on Coumadin and then taken off once IVC filter was placed [address] Tavera), CHF, COPD/asthma, sleep apnea (not currently using CPAP because machine broke), HTN, depression PSH: IVC filter (placed by Dr. Tavera 8 years ago), left chest portacath for IV medication (because patient states that she does not have "easy veins"), tonsillectomy, , cholecystectomy Medications: Prednisone taper as needed, Ventolin 3x/day, nebulizer machine MWF , Digoxin 125mg once daily, Folic Acid 1mg once daily, Plaquenil 200mg twice daily, Methotrexate 2.5mg 6 tablets every Tuesday, [place]yster [place] calcium-Vit D twice daily, Omeprazole 20mg once daily when needed, Duloxetin Hcl 60mg once daily, Xanax 1mg three times daily, Acetaminophen-Codeine 4mg four times daily or as needed for pain. Current Pharmacy: [facility] ([facility]) Allergies: Hydromorphone Hcl (reports anaphylaxis), Meperidine Hcl (reports anaphylaxis) Family History: Father-cirrhosis; Mother-CAD Social history: lives in [place] with 2 daughters and 1 granddaughter; unemployed on disability; uses cane to ambulate; smokes 2-3 cigarattes per day since age 20; drinks 9oz of wine every Tuesday, Tuesday, Tuesday; no current use of recreational drugs; history of marijuana/cocaine use with last use 8 years ago Code status: full code Patient states that in the event she is unable to make health care decisions, she wants her daughter Michelle Lee to make decisions for her ([phone]) Present on Admission - Present on Admission Any Indicators Present on Admission: Yes History of DVT/PE: Yes Review of Systems - Constitutional Constitutional: Sleep Apnea (hx of), Weakness (generalixed). absent: Fever - EENT Eyes: absent: Change in Vision Nose/Mouth/Throat: absent: Nasal Congestion, Sinus Pain, Sore Throat - Cardiovascular Cardiovascular: Chest Pain, Dyspnea. absent: Diaphoresis, Syncope - Respiratory Respiratory: Cough, Dyspnea, Wheezing - Gastrointestinal Gastrointestinal: absent: Abdominal Pain, Constipation, Diarrhea, Nausea, Vomiting - Genitourinary Genitourinary: absent: Dysuria - Neurological Neurological: absent: Dizziness, Numbness, Focal Weakness, Syncope, Tingling Past Patient History - Infectious Disease Hx of Infectious Diseases: None - Past Medical History & Family History Past Medical History?: Yes - Past Social History Smoking Status: Light Smoker < 10 Cigarettes Daily - CARDIAC Hx Cardia Arrhythmia: Yes Hx Congestive Heart Failure: Yes Hx Hypertension: Yes - PULMONARY Hx Asthma: Yes Hx Chronic Obstructive Pulmonary Disease (COPD): Yes Hx Emphysema: Yes Hx Sleep Apnea: Yes - NEUROLOGICAL Hx Neurological Disorder: No - HEENT Hx HEENT Problems: No - RENAL Hx Chronic Kidney Disease: No - ENDOCRINE/METABOLIC Hx Endocrine Disorders: No Hx Systemic Lupus Erythematosus: Yes Other/Comment: 'A LITTLE BIT OF DIABETES" - HEMATOLOGICAL/ONCOLOGICAL Hx Anemia: Yes - INTEGUMENTARY Hx Dermatological Problems: No - MUSCULOSKELETAL/RHEUMATOLOGICAL Hx Arthritis: Yes Hx Osteoporosis: Yes Hx Rheumatoid Arthritis: Yes - GASTROINTESTINAL Hx Gastrointestinal Disorders: No - GENITOURINARY/GYNECOLOGICAL Hx Genitourinary Disorders: No - PSYCHIATRIC Hx Anxiety: Yes Hx Depression: Yes Hx Schizophrenia: Yes Hx Substance Use: No - SURGICAL HISTORY Hx Cholecystectomy: Yes Hx Tonsillectomy: Yes - ANESTHESIA Hx Anesthesia: Yes Hx Anesthesia Reactions: No Hx Malignant Hyperthermia: No Meds Allergies/Adverse Reactions: Allergies Allergy/AdvReac Type Severity Reaction Status Date / Time hydromorphone HCl Allergy Severe ANAPHYLAXIS Verified 11/01/17 15:27 [From Dilaudid] meperidine HCl [From Demerol] Allergy Severe ANAPHYLAXIS Verified 11/01/17 15:27 Physical Exam - Head Exam Head Exam: ATRAUMATIC, NORMOCEPHALIC - Eye Exam Eye Exam: EOMI, Normal appearance - ENT Exam ENT Exam: Mucous Membranes Moist - Respiratory Exam Respiratory Exam: Wheezes (prolonged expiratory phase with wheezing). absent: Rales, Rhonchi, Respiratory Distress - Cardiovascular Exam Cardiovascular Exam: REGULAR RHYTHM, +S1, +S2 - GI/Abdominal Exam GI & Abdominal Exam: Soft. absent: Distended, Tenderness - Extremities Exam Extremities exam: Negative for: pedal edema, tenderness - Neurological Exam Neurological exam: Alert, CN II-XII Intact, Oriented x3 - Psychiatric Exam Psychiatric exam: Normal Affect, Normal Mood - Skin Skin Exam: Dry, Warm Results - Vital Signs Recent Vital Signs: Last Vital Signs Temp 98.5 F 12/31/17 04:21 Pulse 85 12/31/17 06:52 Resp 16 12/31/17 06:52 BP 124/71 12/31/17 06:52 Pulse Ox 96 12/31/17 07:16 - Labs Result Diagrams: 12/31/17 05:38 12/31/17 05:38 Labs: Laboratory Results - last 24 hr 12/31/17 12/31/17 12/31/17 05:38 05:38 05:38 WBC 16.8 H D RBC 4.22 Hgb 11.4 Hct 34.1 MCV 80.7 L MCH 27.0 MCHC 33.5 RDW 15.8 H Plt Count 351 D MPV 7.5 Neut % (Auto) 63.4 Lymph % (Auto) 27.2 Schley % (Auto) 6.3 Eos % (Auto) 2.3 Baso % (Auto) 0.8 Neut # (Auto) 10.7 H Lymph # (Auto) 4.6 H Schley # (Auto) 1.1 H Eos # (Auto) 0.4 Baso # (Auto) 0.1 ESR 43 H PT 11.7 INR 1.0 APTT 25 Sodium 140 Potassium 3.7 Chloride 101 Carbon Dioxide 26 Anion Gap 16 BUN 19 H Creatinine 0.8 Est GFR ( Amer) > 60 Est GFR (Non-Af Amer) > 60 Random Glucose 118 H Calcium 7.9 L Total Bilirubin 0.2 AST 22 ALT 27 Alkaline Phosphatase 73 Total Creatine Kinase 113 CK-MB (Mass) 1.19 Troponin I < 0.0120 NT-Pro-B Natriuret Pep 47.5 Total Protein 6.9 Albumin 3.8 Globulin 3.1 Albumin/Globulin Ratio 1.2 Urine Color Urine Clarity Urine pH Ur Specific [place] Urine Protein Urine Glucose (UA) Urine Ketones Urine Blood Urine Nitrate Urine Bilirubin Urine Urobilinogen Ur Leukocyte Esterase Urine WBC (Auto) Urine RBC (Auto) Ur Squamous Epith Cells Hyaline Casts Digoxin Urine Opiates Screen Urine Methadone Screen Ur Barbiturates Screen Ur Phencyclidine Scrn Ur Amphetamines Screen U Benzodiazepines Scrn U Oth Cocaine Metabols U Cannabinoids Screen Influenza Typ A,B (EIA) Ur L.pneumophila Ag 12/31/17 12/31/17 12/31/17 08:56 10:00 10:30 WBC RBC Hgb Hct MCV MCH MCHC RDW Plt Count MPV Neut % (Auto) Lymph % (Auto) Schley % (Auto) Eos % (Auto) Baso % (Auto) Neut # (Auto) Lymph # (Auto) Schley # (Auto) Eos # (Auto) Baso # (Auto) ESR PT INR APTT Sodium Potassium Chloride Carbon Dioxide Anion Gap BUN Creatinine Est GFR ( Amer) Est GFR (Non-Af Amer) Random Glucose Calcium Total Bilirubin AST ALT Alkaline Phosphatase Total Creatine Kinase CK-MB (Mass) Troponin I NT-Pro-B Natriuret Pep Total Protein Albumin Globulin Albumin/Globulin Ratio Urine Color Yellow Urine Clarity Clear Urine pH 5.0 Ur Specific [place] 1.019 Urine Protein Negative Urine Glucose (UA) Normal Urine Ketones Negative Urine Blood Negative Urine Nitrate Negative Urine Bilirubin Negative Urine Urobilinogen Normal Ur Leukocyte Esterase Neg Urine WBC (Auto) 1 Urine RBC (Auto) < 1 Ur Squamous Epith Cells 1 Hyaline Casts 0-2 Digoxin 0.5 L Urine Opiates Screen Urine Methadone Screen Ur Barbiturates Screen Ur Phencyclidine Scrn Ur Amphetamines Screen U Benzodiazepines Scrn U Oth Cocaine Metabols U Cannabinoids Screen Influenza Typ A,B (EIA) Negative for flu a/b Ur L.pneumophila Ag 12/31/17 12/31/17 12/31/17 10:30 11:00 11:47 WBC RBC Hgb Hct MCV MCH MCHC RDW Plt Count MPV Neut % (Auto) Lymph % (Auto) Sch[place] % (Auto) Eos % (Auto) Baso % (Auto) Neut # (Auto) Lymph # (Auto) Schley # (Auto) Eos # (Auto) Baso # (Auto) ESR PT INR APTT Sodium Potassium Chloride Carbon Dioxide Anion Gap BUN Creatinine Est GFR ( Amer) Est GFR (Non-Af Amer) Random Glucose Calcium Total Bilirubin AST ALT Alkaline Phosphatase Total Creatine Kinase CK-MB (Mass) Troponin I < 0.0120 NT-Pro-B Natriuret Pep Total Protein Albumin Globulin Albumin/Globulin Ratio Urine Color Urine Clarity Urine pH Ur Specific [place] Urine Protein Urine Glucose (UA) Urine Ketones Urine Blood Urine Nitrate Urine Bilirubin Urine Urobilinogen Ur Leukocyte Esterase Urine WBC (Auto) Urine RBC (Auto) Ur Squamous Epith Cells Hyaline Casts Digoxin Urine Opiates Screen Positive H Urine Methadone Screen Negative Ur Barbiturates Screen Negative Ur Phencyclidine Scrn Negative Ur Amphetamines Screen Negative U Benzodiazepines Scrn Positive U Oth Cocaine Metabols Negative U Cannabinoids Screen Negative Influenza Typ A,B (EIA) Ur L.pneumophila Ag Negative Assessment & Plan - Assessment and Plan (Free Text) Plan: Community acquired pneumonia with risk for pseudomonas History of COPD/CHF puts patient at risk Consult placed to infectious disease specialist Dr. Valencia Medications: Azithromycin 500mg IVPB once daily (started in ED on 12/31/17) Ceftriaxone 1 gram IVPB once daily (started 01/01/18) Ciprofloxacin 400mg IVPB q12 hours (started 12/31/17) Oseltamivir Phosphate (Tamiflu Cap) 75mg PO BID (12/31 through 01/05) given prophylactically despite negative rapid influenza test, as rapid flu can be negative 20-25% of the time in the first 24-48 hours. Imaging: Chest x-ray (12/31/17): Mild to moderate venous congestion. Right hilar prominence. Patchy consolidative changes at the lateral aspect of the right lung base. Lines and tubes in stable position. Radioopaque density projects over the left lung base, possibly external. Labs: WBC (12/31/17): 16.8 Influenza Typ A,B: negative for flu a/b Ur L.pneumophilia Ag: negative follow up mycoplasma, strep pneumo Chest pain Consider secondary to pneumonia, myocardial infarction/ischemia, pulmonary embolism, lupus exacerbation Chest x-ray (12/31/17): Mild to moderate venous congestion. Right hilar prominence. Patchy consolidative changes at the lateral aspect of the right lung base. Lines and tubes in stable position. Radioopaque density projects over the left lung base, possibly external. Labs: Troponin negative x 2. Follow-up remaining troponin. EKG NSR x2; follow up remaining Echocardiogram completed follow up results Follow up labs: TSH, Free T4, Lipid Panel, Magnesium, Phosphorus ordered History of COPD/asthma Consult placed to fire protection fabricator Dr. Choi Medications: Albuterol/Ipratropium (DuoNeb) 3mL INH RQ6 Fluticasone/Salmeterol (Advair Diskus 250/50) 1 puff INH RQ12 Methylprednisolone (Solu-Medrol) 40mg IVP Q8H Chest x-ray (12/31/17): Mild to moderate venous congestion. Right hilar prominence. Patchy consolidative changes at the lateral aspect of the right lung base. Lines and tubes in stable position. Radioopaque density projects over the left lung base, possibly external. Labs: Bicarbonate: 26 History of Congestive Heart Failure Medications: Digoxin 0.125mg PO daily Labs: Pro-B LANDFILL GRADER: 47.5 Dig level: 0.5 (low) She does not take any medications for HTN/CHF other than Digoxin. She is a patient of Dr. Woodward but has not followed up with him in several months. Monitor vitals and start meds as needed. consider cardio consult prn. History of Lupus Home Medications Continued: Calcium/Vitamin D 1 tab PO TID Folic Acid 1mg PO daily Hydroxychloroquine Sulfate (Plaquenil) 200mg PO BID Methotrexate 15mg PO once/week (Tuesday) Narcotics discontinued- level of pain does not seem appropriate for opioid medications. Treat pain with tylenol prn and reassess as needed. History of Rheumatoid Arthritis Medications: Calcium/Vitamin D 1 tab PO TID Folic Acid 1mg PO daily Hydroxychloroquine Sulfate (Plaquenil) 200mg PO BID Methotrexate 15mg PO once/week (Tuesday) Methylprednisolone (Solu-Medrol) 40mg IVP Q8H Narcotics discontinued History of chronic DVT RLE- s/p IVC filter Medications: Enoxaparin (Lovenox) 40mg SC daily Most recent lower extremity doppler was negative in January 2017 INR on admission 1.0 History of Depression Medications: Cymbalta (Duloxetine Hcl) 60mg PO daily Xanax (alprazolam) 0.5mg PO Q8H PRN anxiety Hx of Drug Abuse UDS positive for benzo and opiates Prophylaxis DVT: risk score of 7; Enoxaparin (Lovenox) 40mg SC daily GI: Pantoprazole (Protonix) 40mg PO daily Heart healthy, carbohydrate controlled diet Florastor daily Case discussed with Dr. Lázaro Lambert D.O. <Kip Sesay - Last Filed: 12/31/17 16:07> Results - Vital Signs Recent Vital Signs: Last Vital Signs Temp 98.5 F 12/31/17 04:21 Pulse 85 12/31/17 06:52 Resp 16 12/31/17 06:52 BP 124/71 12/31/17 06:52 Pulse Ox 96 12/31/17 07:16 - Labs Result Diagrams: 12/31/17 05:38 12/31/17 05:38 Labs: Laboratory Results - last 24 hr 12/31/17 12/31/17 12/31/17 05:38 05:38 05:38 WBC 16.8 H D RBC 4.22 Hgb 11.4 Hct 34.1 MCV 80.7 L MCH 27.0 MCHC 33.5 RDW 15.8 H Plt Count 351 D MPV 7.5 Neut % (Auto) 63.4 Lymph % (Auto) 27.2 Schley % (Auto) 6.3 Eos % (Auto) 2.3 Baso % (Auto) 0.8 Neut # (Auto) 10.7 H Lymph # (Auto) 4.6 H Schley # (Auto) 1.1 H Eos # (Auto) 0.4 Baso # (Auto) 0.1 ESR 43 H PT 11.7 INR 1.0 APTT 25 Sodium 140 Potassium 3.7 Chloride 101 Carbon Dioxide 26 Anion Gap 16 BUN 19 H Creatinine 0.8 Est GFR ( Amer) > 60 Est GFR (Non-Af Amer) > 60 Random Glucose 118 H Calcium 7.9 L Total Bilirubin 0.2 AST 22 ALT 27 Alkaline Phosphatase 73 Total Creatine Kinase 113 CK-MB (Mass) 1.19 Troponin I < 0.0120 NT-Pro-B Natriuret Pep 47.5 Total Protein 6.9 Albumin 3.8 Globulin 3.1 Albumin/Globulin Ratio 1.2 Urine Color Urine Clarity Urine pH Ur Specific [place] Urine Protein Urine Glucose (UA) Urine Ketones Urine Blood Urine Nitrate Urine Bilirubin Urine Urobilinogen Ur Leukocyte Esterase Urine WBC (Auto) Urine RBC (Auto) Ur Squamous Epith Cells Hyaline Casts Digoxin Urine Opiates Screen Urine Methadone Screen Ur Barbiturates Screen Ur Phencyclidine Scrn Ur Amphetamines Screen U Benzodiazepines Scrn U Oth Cocaine Metabols U Cannabinoids Screen Influenza Typ A,B (EIA) Ur L.pneumophila Ag 12/31/17 12/31/17 12/31/17 08:56 10:00 10:30 WBC RBC Hgb Hct MCV MCH MCHC RDW Plt Count MPV Neut % (Auto) Lymph % (Auto) [place] % (Auto) Eos % (Auto) Baso % (Auto) Neut # (Auto) Lymph # (Auto) [place] # (Auto) Eos # (Auto) Baso # (Auto) ESR PT INR APTT Sodium Potassium Chloride Carbon Dioxide Anion Gap BUN Creatinine Est GFR ( Amer) Est GFR (Non-Af Amer) Random Glucose Calcium Total Bilirubin AST ALT Alkaline Phosphatase Total Creatine Kinase CK-MB (Mass) Troponin I NT-Pro-B Natriuret Pep Total Protein Albumin Globulin Albumin/Globulin Ratio Urine Color Yellow Urine Clarity Clear Urine pH 5.0 Ur Specific [place] 1.019 Urine Protein Negative Urine Glucose (UA) Normal Urine Ketones Negative Urine Blood Negative Urine Nitrate Negative Urine Bilirubin Negative Urine Urobilinogen Normal Ur Leukocyte Esterase Neg Urine WBC (Auto) 1 Urine RBC (Auto) < 1 Ur Squamous Epith Cells 1 Hyaline Casts 0-2 Digoxin 0.5 L Urine Opiates Screen Urine Methadone Screen Ur Barbiturates Screen Ur Phencyclidine Scrn Ur Amphetamines Screen U Benzodiazepines Scrn U Oth Cocaine Metabols U Cannabinoids Screen Influenza Typ A,B (EIA) Negative for flu a/b Ur L.pneumophila Ag 12/31/17 12/31/17 12/31/17 10:30 11:00 11:47 WBC RBC Hgb Hct MCV MCH MCHC RDW Plt Count MPV Neut % (Auto) Lymph % (Auto) [place] % (Auto) Eos % (Auto) Baso % (Auto) Neut # (Auto) Lymph # (Auto) [place] # (Auto) Eos # (Auto) Baso # (Auto) ESR PT INR APTT Sodium Potassium Chloride Carbon Dioxide Anion Gap BUN Creatinine Est GFR ( Amer) Est GFR (Non-Af Amer) Random Glucose Calcium Total Bilirubin AST ALT Alkaline Phosphatase Total Creatine Kinase CK-MB (Mass) Troponin I < 0.0120 NT-Pro-B Natriuret Pep Total Protein Albumin Globulin Albumin/Globulin Ratio Urine Color Urine Clarity Urine pH Ur Specific [place] Urine Protein Urine Glucose (UA) Urine Ketones Urine Blood Urine Nitrate Urine Bilirubin Urine Urobilinogen Ur Leukocyte Esterase Urine WBC (Auto) Urine RBC (Auto) Ur Squamous Epith Cells Hyaline Casts Digoxin Urine Opiates Screen Positive H Urine Methadone Screen Negative Ur Barbiturates Screen Negative Ur Phencyclidine Scrn Negative Ur Amphetamines Screen Negative U Benzodiazepines Scrn Positive U Oth Cocaine Metabols Negative U Cannabinoids Screen Negative Influenza Typ A,B (EIA) Ur L.pneumophila Ag Negative Attending/Attestation - Attestation I have personally seen and examined this patient.: Yes I have fully participated in the care of the patient.: Yes I have reviewed all pertinent clinical information: Yes Notes (Text): 12/31/17 16:07 Patient was seen and examined shortly after resident. History, Physical, Assessment and Plan were gone over with the resident. Kip Sesay D.O.
--- NOTE | 2017-12-31 14:22 | CP.PCM.CON ---
History of Present Illness - History of Present Illness History of Present Illness: reason for consultation: shortness of breath 57-year-old female with history of COPD/asthma, obstructive sleep apnea, a right leg DVT, rheumatoid arthritis, lupus who presented to emergency room with generalized aches and pains, chest pain and shortness of breath. Chest x-ray done in the emergency room was concerning for pneumonia. PMH: rheumatoid arthritis, lupus, R leg chronic DVT (diagnosed 9 years ago; was initially on Coumadin and then taken off once IVC filter was placed [address] Tavera), CHF, COPD/asthma, sleep apnea (not currently using CPAP because machine broke), HTN, depression PSH: IVC filter (placed by Dr. Tavera 8 years ago), left chest portacath for IV medication (because patient states that she does not have "easy veins"), tonsillectomy, , cholecystectomy Medications: Prednisone taper as needed, Ventolin 3x/day, nebulizer machine MWF , Digoxin 125mg once daily, Folic Acid 1mg once daily, Plaquenil 200mg twice daily, Methotrexate 2.5mg 6 tablets every Tuesday, Oyster shell calcium-Vit D twice daily, Omeprazole 20mg once daily when needed, Duloxetin Hcl 60mg once daily, Xanax 1mg three times daily, Acetaminophen-Codeine 4mg four times daily or as needed for pain. Current Pharmacy: [facility] ([facility]) Allergies: Hydromorphone Hcl (reports anaphylaxis), Meperidine Hcl (reports anaphylaxis) Family History: Father-cirrhosis; Mother-CAD Review of Systems - Review of Systems All systems: reviewed and no additional remarkable complaints except (shortness of breath and chest pain) Past Patient History - Infectious Disease Hx of Infectious Diseases: None - Past Medical History & Family History Past Medical History?: Yes - Past Social History Smoking Status: Light Smoker < 10 Cigarettes Daily - CARDIAC Hx Cardia Arrhythmia: Yes Hx Congestive Heart Failure: Yes Hx Hypertension: Yes - PULMONARY Hx Asthma: Yes Hx Chronic Obstructive Pulmonary Disease (COPD): Yes Hx Emphysema: Yes Hx Sleep Apnea: Yes - NEUROLOGICAL Hx Neurological Disorder: No - HEENT Hx HEENT Problems: No - RENAL Hx Chronic Kidney Disease: No - ENDOCRINE/METABOLIC Hx Endocrine Disorders: No Hx Systemic Lupus Erythematosus: Yes Other/Comment: 'A LITTLE BIT OF DIABETES" - HEMATOLOGICAL/ONCOLOGICAL Hx Anemia: Yes - INTEGUMENTARY Hx Dermatological Problems: No - MUSCULOSKELETAL/RHEUMATOLOGICAL Hx Arthritis: Yes Hx Osteoporosis: Yes Hx Rheumatoid Arthritis: Yes - GASTROINTESTINAL Hx Gastrointestinal Disorders: No - GENITOURINARY/GYNECOLOGICAL Hx Genitourinary Disorders: No - PSYCHIATRIC Hx Anxiety: Yes Hx Depression: Yes Hx Schizophrenia: Yes Hx Substance Use: No - SURGICAL HISTORY Hx Cholecystectomy: Yes Hx Tonsillectomy: Yes - ANESTHESIA Hx Anesthesia: Yes Hx Anesthesia Reactions: No Hx Malignant Hyperthermia: No Meds Allergies/Adverse Reactions: Allergies Allergy/AdvReac Type Severity Reaction Status Date / Time hydromorphone HCl Allergy Severe ANAPHYLAXIS Verified 11/01/17 15:27 [From Dilaudid] meperidine HCl [From Demerol] Allergy Severe ANAPHYLAXIS Verified 11/01/17 15:27 - Medications Medications: Current Medications Albuterol/Ipratropium (Duoneb 3 Mg/0.5 Mg (3 Ml) Ud) 3 ml INH RQ6 [facility] Stop: 01/01/18 14:00 Alprazolam (Xanax) 0.5 mg PO Q8H PRN PRN Reason: Anxiety Calcium/Vitamin D (Oyster Shell Calcium/Vitamin D 500 Mg-200 Iu) 1 tab PO TID [facility] Digoxin (Digoxin) 0.125 mg PO DAILY@1800 [facility] Duloxetine HCl (Cymbalta) 60 mg PO DAILY [facility] Last Admin: 12/31/17 09:51 Dose: 60 mg Enoxaparin Sodium (Lovenox) 40 mg SC DAILY [facility] Last Admin: 12/31/17 09:52 Dose: 40 mg Folic Acid (Folic Acid) 1 mg PO DAILY [facility] Last Admin: 12/31/17 09:51 Dose: 1 mg Hydroxychloroquine Sulfate (Plaquenil) 200 mg PO BID [facility] Last Admin: 12/31/17 09:52 Dose: 200 mg Ciprofloxacin (Cipro 400mg/200ml Dsw) 400 mg in 200 mls @ 133 mls/hr IVPB Q12H [facility] Last Admin: 12/31/17 11:30 Dose: 133 mls/hr Ceftriaxone Sodium 1 gm/ (Sodium Chloride) 100 mls @ 100 mls/hr IVPB DAILY [facility] Azithromycin 500 mg/ Sodium (Chloride) 250 mls @ 250 mls/hr IVPB Q24H [facility] Azithromycin 500 mg/ Sodium (Chloride) 250 mls @ 167 mls/hr IVPB ONCE ONE Stop: 12/31/17 14:29 Last Admin: 12/31/17 13:42 Dose: 167 mls/hr Methotrexate (Methotrexate) 15 mg PO QD7 [facility] Methylprednisolone (Solu-Medrol) 40 mg IVP Q8 [facility] Oseltamivir Phosphate (Tamiflu Cap) 75 mg PO BID [facility] Stop: 01/05/18 10:04 Last Admin: 12/31/17 11:36 Dose: 75 mg Pantoprazole Sodium (Protonix Ec Tab) 40 mg PO DAILY [facility] Last Admin: 12/31/17 09:52 Dose: 40 mg Fluticasone/Salmeterol (Advair Diskus 250/50) 1 puff INH RQ12 [facility] Physical Exam - Head Exam Head Exam: ATRAUMATIC, NORMOCEPHALIC - Eye Exam Eye Exam: Normal appearance - ENT Exam ENT Exam: Mucous Membranes Moist - Neck Exam Neck exam: Positive for: Normal Inspection - Respiratory Exam Respiratory Exam: Rhonchi - Cardiovascular Exam Cardiovascular Exam: REGULAR RHYTHM Results - Vital Signs Recent Vital Signs: Last Vital Signs Temp 98.5 F 12/31/17 04:21 Pulse 85 12/31/17 06:52 Resp 16 12/31/17 06:52 BP 124/71 12/31/17 06:52 Pulse Ox 96 12/31/17 07:16 - Labs Result Diagrams: 12/31/17 05:38 12/31/17 05:38 Labs: Laboratory Results - last 24 hr 12/31/17 12/31/17 12/31/17 05:38 05:38 05:38 WBC 16.8 H D RBC 4.22 Hgb 11.4 Hct 34.1 MCV 80.7 L MCH 27.0 MCHC 33.5 RDW 15.8 H Plt Count 351 D MPV 7.5 Neut % (Auto) 63.4 Lymph % (Auto) 27.2 [place] % (Auto) 6.3 Eos % (Auto) 2.3 Baso % (Auto) 0.8 Neut # (Auto) 10.7 H Lymph # (Auto) 4.6 H [place] # (Auto) 1.1 H Eos # (Auto) 0.4 Baso # (Auto) 0.1 ESR 43 H PT 11.7 INR 1.0 APTT 25 Sodium 140 Potassium 3.7 Chloride 101 Carbon Dioxide 26 Anion Gap 16 BUN 19 H Creatinine 0.8 Est GFR ( Amer) > 60 Est GFR (Non-Af Amer) > 60 Random Glucose 118 H Calcium 7.9 L Total Bilirubin 0.2 AST 22 ALT 27 Alkaline Phosphatase 73 Total Creatine Kinase 113 CK-MB (Mass) 1.19 Troponin I < 0.0120 NT-Pro-B Natriuret Pep 47.5 Total Protein 6.9 Albumin 3.8 Globulin 3.1 Albumin/Globulin Ratio 1.2 Urine Color Urine Clarity Urine pH Ur Specific [place] Urine Protein Urine Glucose (UA) Urine Ketones Urine Blood Urine Nitrate Urine Bilirubin Urine Urobilinogen Ur Leukocyte Esterase Urine WBC (Auto) Urine RBC (Auto) Ur Squamous Epith Cells Hyaline Casts Digoxin Urine Opiates Screen Urine Methadone Screen Ur Barbiturates Screen Ur Phencyclidine Scrn Ur Amphetamines Screen U Benzodiazepines Scrn U Oth Cocaine Metabols U Cannabinoids Screen Influenza Typ A,B (EIA) Ur L.pneumophila Ag 12/31/17 12/31/17 12/31/17 08:56 10:00 10:30 WBC RBC Hgb Hct MCV MCH MCHC RDW Plt Count MPV Neut % (Auto) Lymph % (Auto) [place] % (Auto) Eos % (Auto) Baso % (Auto) Neut # (Auto) Lymph # (Auto) [place] # (Auto) Eos # (Auto) Baso # (Auto) ESR PT INR APTT Sodium Potassium Chloride Carbon Dioxide Anion Gap BUN Creatinine Est GFR ( Amer) Est GFR (Non-Af Amer) Random Glucose Calcium Total Bilirubin AST ALT Alkaline Phosphatase Total Creatine Kinase CK-MB (Mass) Troponin I NT-Pro-B Natriuret Pep Total Protein Albumin Globulin Albumin/Globulin Ratio Urine Color Yellow Urine Clarity Clear Urine pH 5.0 Ur Specific [place] 1.019 Urine Protein Negative Urine Glucose (UA) Normal Urine Ketones Negative Urine Blood Negative Urine Nitrate Negative Urine Bilirubin Negative Urine Urobilinogen Normal Ur Leukocyte Esterase Neg Urine WBC (Auto) 1 Urine RBC (Auto) < 1 Ur Squamous Epith Cells 1 Hyaline Casts 0-2 Digoxin 0.5 L Urine Opiates Screen Urine Methadone Screen Ur Barbiturates Screen Ur Phencyclidine Scrn Ur Amphetamines Screen U Benzodiazepines Scrn U Oth Cocaine Metabols U Cannabinoids Screen Influenza Typ A,B (EIA) Negative for flu a/b Ur L.pneumophila Ag 12/31/17 12/31/17 12/31/17 10:30 11:00 11:47 WBC RBC Hgb Hct MCV MCH MCHC RDW Plt Count MPV Neut % (Auto) Lymph % (Auto) [place] % (Auto) Eos % (Auto) Baso % (Auto) Neut # (Auto) Lymph # (Auto) [place] # (Auto) Eos # (Auto) Baso # (Auto) ESR PT INR APTT Sodium Potassium Chloride Carbon Dioxide Anion Gap BUN Creatinine Est GFR ( Amer) Est GFR (Non-Af Amer) Random Glucose Calcium Total Bilirubin AST ALT Alkaline Phosphatase Total Creatine Kinase CK-MB (Mass) Troponin I < 0.0120 NT-Pro-B Natriuret Pep Total Protein Albumin Globulin Albumin/Globulin Ratio Urine Color Urine Clarity Urine pH Ur Specific [place] Urine Protein Urine Glucose (UA) Urine Ketones Urine Blood Urine Nitrate Urine Bilirubin Urine Urobilinogen Ur Leukocyte Esterase Urine WBC (Auto) Urine RBC (Auto) Ur Squamous Epith Cells Hyaline Casts Digoxin Urine Opiates Screen Positive H Urine Methadone Screen Negative Ur Barbiturates Screen Negative Ur Phencyclidine Scrn Negative Ur Amphetamines Screen Negative U Benzodiazepines Scrn Positive U Oth Cocaine Metabols Negative U Cannabinoids Screen Negative Influenza Typ A,B (EIA) Ur L.pneumophila Ag Negative Assessment & Plan (1) Pneumonia Status: Acute Comment: continue IV antibiotics. Followup culture and sensitivity. Continue nebulizer treatment. Followup chest x-ray. tamiflu (2) COPD exacerbation Status: Acute
[2017-12-31] MEDS: MethylPREDNISolone 40 mg Vial IVP SCH ×2 (15:43→22:22)
[2017-12-31] MEDS: Calcium-Vit D 500 mg-200 Units Tab UD PO SCH ×2 (15:43→18:23)
[2017-12-31] MEDS: Albuterol-Ipratrop 3 mg / 0.5 (3 ml) UD INH SCH (15:43)
[2017-12-31] MEDS ORDERED: MethylPREDNISolone 40 mg Vial ONE (15:48)
[2017-12-31] MEDS: Digoxin 125 mcg (0.125 mg) Tab PO SCH (18:23)
[2017-12-31] MEDS ORDERED: Fluticasone-Salmeterol 250-50mcg Diskus INH SCH (20:00)
[2018-01-01] MEDS: Albuterol-Ipratrop 3 mg / 0.5 (3 ml) UD INH SCH ×3 (01:10→13:31)
[2018-01-01] MEDS: MethylPREDNISolone 40 mg Vial IVP SCH ×3 (06:42→21:45)
[2018-01-01 08:20] LABS: BASO % 0.3 % (0.0-2.0); HEMOGLOBIN 11.4 g/dL (11.0-16.0); LYMPH % 7.8 % (20.0-40.0); MEAN CELL VOLUME 80.7 fL (81.0-99.0); MEAN CORPUSCULAR HEMOGLOBIN 27.2 pg (27.0-31.0); MEAN CORPUSCULAR HGB CONC 33.7 g/dL (33.0-37.0); MEAN PLATELET VOLUME 8.1 fL (7.2-11.7); MONO # 0.1 K/uL (0.0-0.8); MONO % 1.1 % (0.0-10.0); NEUT # 11.5 K/uL (1.8-7.0); NEUT % 90.8 % (50.0-75.0); NRBC % 0.1 % (0.0-2.0); PLATELET COUNT 317 K/uL (130-400); RED CELL DISTRIBUTION WIDTH 15.9 % (11.5-14.5); WHITE BLOOD COUNT 12.7 K/uL (4.8-10.8)
[2018-01-01 08:47] LABS: ALBUMIN 3.8 g/dL (3.5-5.0); ALT/SGPT 37 U/L (9-52); AST/SGOT 32 U/L (14-36); BLOOD UREA NITROGEN 14 mg/dL (7-17); CALCIUM 9.4 mg/dl (8.6-10.4); GFR AFRICAN-AMERICAN > 60; GFR NON-AFRICAN AMERICAN > 60; HDL CHOLESTEROL 41 mg/dL (30-70)
[2018-01-01 08:53] LABS: LDL CHOLESTEROL 130 mg/dL (0-129)
[2018-01-01] MEDS: Pantoprazole 40 mg EC Tab PO SCH (09:25)
--- NOTE | 2018-01-01 09:44 | CP.PCM.PN ---
<Kai Lambert S - Last Filed: 01/01/18 11:02> Subjective - Date & Time of Evaluation Date of Evaluation: 01/01/18 Time of Evaluation: 09:43 - Subjective Subjective: Progress note for Dr. Sesay's Service Patient seen and examined at bedside this morning. She complains of headache and shoulder pain that are controlled by tylenol prn. She complains of diffuse aches and pains but appears comfortable. She is otherwise well she does not complain of SOB, coughing or fevers. Objective - Vital Signs/Intake and Output Vital Signs (last 24 hours): Temp Pulse Resp BP Pulse Ox 98.6 F 106 H 20 141/78 97 01/01/18 07:30 01/01/18 07:30 01/01/18 07:30 01/01/18 07:30 01/01/18 07:30 Intake and Output: 01/01/18 01/01/18 06:59 18:59 Intake Total 780 Output Total 400 Balance 380 - Medications Medications: Current Medications Acetaminophen (Tylenol 325mg Tab) 650 mg PO Q6 PRN PRN Reason: Pain, moderate (4-7) Albuterol/Ipratropium (Duoneb 3 Mg/0.5 Mg (3 Ml) Ud) 3 ml INH RQ6 [facility] Stop: 01/01/18 14:00 Last Admin: 01/01/18 01:10 Dose: 3 ml Alprazolam (Xanax) 0.5 mg PO Q8H PRN PRN Reason: Anxiety Calcium/Vitamin D (Oyster Shell Calcium/Vitamin D 500 Mg-200 Iu) 1 tab PO TID [facility] Last Admin: 12/31/17 18:23 Dose: 1 tab Digoxin (Digoxin) 0.125 mg PO DAILY@1800 [facility] Last Admin: 12/31/17 18:23 Dose: 0.125 mg Duloxetine HCl (Cymbalta) 60 mg PO DAILY [facility] Last Admin: 12/31/17 09:51 Dose: 60 mg Enoxaparin Sodium (Lovenox) 40 mg SC DAILY [facility] Last Admin: 12/31/17 09:52 Dose: 40 mg Folic Acid (Folic Acid) 1 mg PO DAILY [facility] Last Admin: 12/31/17 09:51 Dose: 1 mg Hydroxychloroquine Sulfate (Plaquenil) 200 mg PO BID [facility] Last Admin: 12/31/17 18:24 Dose: 200 mg Ciprofloxacin (Cipro 400mg/200ml Dsw) 400 mg in 200 mls @ 133 mls/hr IVPB Q12H [facility] Last Admin: 12/31/17 22:22 Dose: 133 mls/hr Ceftriaxone Sodium 1 gm/ (Sodium Chloride) 100 mls @ 100 mls/hr IVPB DAILY [facility] Azithromycin 500 mg/ Sodium (Chloride) 250 mls @ 250 mls/hr IVPB Q24H [facility] Methotrexate (Methotrexate) 15 mg PO QD7 [facility] Methylprednisolone (Solu-Medrol) 40 mg IVP Q8 [facility] Last Admin: 01/01/18 06:42 Dose: 40 mg Oseltamivir Phosphate (Tamiflu Cap) 75 mg PO BID [facility] Stop: 01/05/18 10:04 Last Admin: 12/31/17 18:24 Dose: 75 mg Pantoprazole Sodium (Protonix Ec Tab) 40 mg PO DAILY [facility] Last Admin: 01/01/18 09:25 Dose: 40 mg Saccharomyces Boulardii (Florastor) 250 mg PO DAILY [facility] Fluticasone/Salmeterol (Advair Diskus 250/50) 1 puff INH RQ12 [facility] - Labs Labs: 01/01/18 08:06 01/01/18 08:06 PT 11.7 SECONDS (9.7-12.2) 12/31/17 05:38 INR 1.0 12/31/17 05:38 APTT 25 SECONDS (21-34) 12/31/17 05:38 - Head Exam Head Exam: ATRAUMATIC, NORMOCEPHALIC - Eye Exam Eye Exam: EOMI, Normal appearance - ENT Exam ENT Exam: Mucous Membranes Moist - Respiratory Exam Respiratory Exam: NORMAL BREATHING PATTERN. absent: Rhonchi, Wheezes Additional comments: decreased breath sounds - Cardiovascular Exam Cardiovascular Exam: REGULAR RHYTHM, +S1, +S2 - GI/Abdominal Exam GI & Abdominal Exam: Soft. absent: Tenderness - Neurological Exam Neurological Exam: Alert, Awake, Oriented x3 - Skin Skin Exam: Dry, Warm Assessment and Plan - Assessment and Plan (Free Text) Plan: Community acquired pneumonia with risk for pseudomonas History of COPD/CHF puts patient at risk Consult placed to infectious disease specialist Dr. Valencia Medications: Azithromycin 500mg IVPB once daily (started in ED on 12/31/17) Ceftriaxone 1 gram IVPB once daily (started 01/01/18) Ciprofloxacin 400mg IVPB q12 hours (started 12/31/17) Oseltamivir Phosphate (Tamiflu Cap) 75mg PO BID (12/31 through 01/05) given prophylactically despite negative rapid influenza test, as rapid flu can be negative 20-25% of the time in the first 24-48 hours. Imaging: Chest x-ray (12/31/17): Mild to moderate venous congestion. Right hilar prominence. Patchy consolidative changes at the lateral aspect of the right lung base. Lines and tubes in stable position. Radioopaque density projects over the left lung base, possibly external. Labs: WBC (12/31/17): 16.8 -> 12.7 (01/01/18) Influenza Typ A,B: negative for flu a/b Ur L.pneumophilia Ag: negative follow up mycoplasma, strep pneumo Chest pain Consider secondary to pneumonia, myocardial infarction/ischemia, pulmonary embolism, lupus exacerbation Chest x-ray (12/31/17): Mild to moderate venous congestion. Right hilar prominence. Patchy consolidative changes at the lateral aspect of the right lung base. Lines and tubes in stable position. Radioopaque density projects over the left lung base, possibly external. Labs: Troponin negative x 3 EKG NSR x3 Echocardiogram completed follow up results TSH/Free T4- normal Lipid Panel- LDL 130/HDL 41 No localized chest pain/dyspnea on examination today 01/01/18 History of COPD/asthma Consult placed to tax evaluator Dr. Choi Continue abx/tamiflu Medications: Albuterol/Ipratropium (DuoNeb) 3mL INH RQ6 Fluticasone/Salmeterol (Advair Diskus 250/50) 1 puff INH RQ12 Methylprednisolone (Solu-Medrol) 40mg IVP Q8H Chest x-ray (12/31/17): Mild to moderate venous congestion. Right hilar prominence. Patchy consolidative changes at the lateral aspect of the right lung base. Lines and tubes in stable position. Radioopaque density projects over the left lung base, possibly external. Labs: Bicarbonate: 26 History of Congestive Heart Failure Medications: Digoxin 0.125mg PO daily Labs: Pro-B CLINICAL NUTRITION MANAGER: 47.5 Dig level: 0.5 (low) She does not take any medications for HTN/CHF other than Digoxin. She is a patient of Dr. Woodward but has not followed up with him in several months. Monitor vitals and start meds as needed. consider cardio consult prn. History of Lupus Home Medications Continued: Calcium/Vitamin D 1 tab PO TID Folic Acid 1mg PO daily Hydroxychloroquine Sulfate (Plaquenil) 200mg PO BID Methotrexate 15mg PO once/week (Tuesday) Narcotics discontinued- level of pain does not seem appropriate for opioid medications. Treat pain with tylenol prn and reassess as needed. History of Rheumatoid Arthritis Medications: Calcium/Vitamin D 1 tab PO TID Folic Acid 1mg PO daily Hydroxychloroquine Sulfate (Plaquenil) 200mg PO BID Methotrexate 15mg PO once/week (Tuesday) Methylprednisolone (Solu-Medrol) 40mg IVP Q8H Narcotics discontinued Tylenol prn pain History of chronic DVT RLE- s/p IVC filter Medications: Enoxaparin (Lovenox) 40mg SC daily Most recent lower extremity doppler was negative in January 2017 INR on admission 1.0 History of Depression Medications: Cymbalta (Duloxetine Hcl) 60mg PO daily Xanax (alprazolam) 0.5mg PO Q8H PRN anxiety Hx of Drug Abuse UDS positive for benzo and opiates Prophylaxis DVT: risk score of 7; Enoxaparin (Lovenox) 40mg SC daily GI: Pantoprazole (Protonix) 40mg PO daily Heart healthy, carbohydrate controlled diet Florastor daily Case discussed with Dr. Lázaro Lambert D.O. <Kip Sesay - Last Filed: 01/01/18 20:50> Objective - Vital Signs/Intake and Output Vital Signs (last 24 hours): Temp Pulse Resp BP Pulse Ox 98.4 F 107 H 19 130/70 96 01/01/18 15:00 01/01/18 16:00 01/01/18 15:00 01/01/18 15:00 01/01/18 15:00 Intake and Output: 01/01/18 01/02/18 18:59 06:59 Intake Total 1000 Balance 1000 - Medications Medications: Current Medications Acetaminophen (Tylenol 325mg Tab) 650 mg PO Q6 PRN PRN Reason: Pain, moderate (4-7) Alprazolam (Xanax) 0.5 mg PO Q8H PRN PRN Reason: Anxiety Last Admin: 01/01/18 18:19 Dose: 0.5 mg Calcium/Vitamin D (Oyster Shell Calcium/Vitamin D 500 Mg-200 Iu) 1 tab PO TID [facility] Last Admin: 01/01/18 18:15 Dose: 1 tab Digoxin (Digoxin) 0.125 mg PO DAILY@1800 [facility] Last Admin: 01/01/18 18:16 Dose: 0.125 mg Duloxetine HCl (Cymbalta) 60 mg PO DAILY [facility] Last Admin: 01/01/18 10:00 Dose: 60 mg Enoxaparin Sodium (Lovenox) 40 mg SC DAILY [facility] Last Admin: 01/01/18 09:58 Dose: 40 mg Folic Acid (Folic Acid) 1 mg PO DAILY [facility] Last Admin: 01/01/18 09:58 Dose: 1 mg Hydroxychloroquine Sulfate (Plaquenil) 200 mg PO BID [facility] Last Admin: 01/01/18 18:15 Dose: 200 mg Ciprofloxacin (Cipro 400mg/200ml Dsw) 400 mg in 200 mls @ 133 mls/hr IVPB Q12H [facility] Last Admin: 01/01/18 11:00 Dose: 133 mls/hr Ceftriaxone Sodium 1 gm/ (Sodium Chloride) 100 mls @ 100 mls/hr IVPB DAILY [facility] Last Admin: 01/01/18 09:00 Dose: 100 mls/hr Azithromycin 500 mg/ Sodium (Chloride) 250 mls @ 250 mls/hr IVPB Q24H [facility] Last Admin: 01/01/18 13:55 Dose: 250 mls/hr Methotrexate (Methotrexate) 15 mg PO QD7 [facility] Methylprednisolone (Solu-Medrol) 40 mg IVP Q8 [facility] Last Admin: 01/01/18 13:01 Dose: 40 mg Oseltamivir Phosphate (Tamiflu Cap) 75 mg PO BID [facility] Stop: 01/05/18 10:04 Last Admin: 01/01/18 18:15 Dose: 75 mg Pantoprazole Sodium (Protonix Ec Tab) 40 mg PO DAILY [facility] Last Admin: 01/01/18 09:25 Dose: 40 mg Saccharomyces Boulardii (Florastor) 250 mg PO DAILY [facility] Last Admin: 01/01/18 09:59 Dose: 250 mg Fluticasone/Salmeterol (Advair Diskus 250/50) 1 puff INH RQ12 [facility] Last Admin: 01/01/18 07:40 Dose: 1 puff - Labs Labs: 01/01/18 08:06 01/01/18 08:06 PT 11.7 SECONDS (9.7-12.2) 12/31/17 05:38 INR 1.0 12/31/17 05:38 APTT 25 SECONDS (21-34) 12/31/17 05:38 Attending/Attestation - Attestation I have personally seen and examined this patient.: Yes I have fully participated in the care of the patient.: Yes I have reviewed all pertinent clinical information, including history, physical exam and plan: Yes Notes (Text): 01/01/18 20:45 Patient was seen and examined at 3:15 PM 01/01/18 Bed 659 A Exam, assessment and plan were gone over with the resident. Also upon ROS: Breathing is better Also on Exam: Respiratory: NO more diffuse weezing If patient continues to be fever free by morning of 01/02/18 then patient should be discharged with Prednisone Taper ([id number]), Avelox 400 mg PO 1x/day to complete a total of 10 days (from the time of admission), Advair 250/50 1 PO INH 2x/day, Albuterol 90 mcg/actuation 1 PO INH every 6 hours ONLY IF NEEDED for SOB/Wheezing, as well as her medications for her chronic issues as mentioned above. Kip Sesay D.O.
[2018-01-01] MEDS: Enoxaparin 40 mg Syringe SC SCH (09:58)
[2018-01-01] MEDS: Saccharomyces Boulardi 250 mg Cap PO SCH (09:59)
[2018-01-01] MEDS: Calcium-Vit D 500 mg-200 Units Tab UD PO SCH ×3 (09:59→18:15)
[2018-01-01 10:35] LABS: ANISOCYTOSIS SLIGHT; BANDS 6 % (0-2); LYMPHOCYTE 7 % (20-40); MONOCYTE 1 % (0-10); NEUTROPHIL 86 % (50-75); PLATELET ESTIMATE NORMAL (NORMAL); TOTAL CELLS COUNTED 100
[2018-01-01] MEDS: Ciprofloxacin 400mg/200ml D5W 400 MG/200 ML BAG IVPB SCH ×2 (11:00→21:56)
[2018-01-01] MEDS ORDERED: Azithromycin 500 MG in Sodium Chloride 0.9% 250 ML IVPB SCH (13:00)
--- NOTE | 2018-01-01 14:01 | CP.PCM.CON ---
History of Present Illness - History of Present Illness History of Present Illness: 57-year-old female with history of COPD/asthma, obstructive sleep apnea, a right leg DVT, rheumatoid arthritis, lupus who presented to emergency room with generalized aches and pains, chest pain and shortness of breath. Chest x-ray done in the emergency room was concerning for pneumonia. ID consulted for antibiotic management PMH: rheumatoid arthritis, lupus, R leg chronic DVT , CHF, COPD/asthma, sleep apnea (not currently using CPAP because machine broke), HTN, depression PSH: IVC filter , left chest portacath for IV medication (because patient states that she does not have "easy veins"), tonsillectomy, , cholecystectomy Medications: Prednisone taper as needed, Ventolin 3x/day, nebulizer machine MWF , Digoxin 125mg once daily, Folic Acid 1mg once daily, Plaquenil 200mg twice daily, Methotrexate 2.5mg 6 tablets every Tuesday, Oyster shell calcium-Vit D twice daily, Omeprazole 20mg once daily when needed, Duloxetin Hcl 60mg once daily, Xanax 1mg three times daily, Acetaminophen-Codeine 4mg four times daily or as needed for pain. Current Pharmacy: [facility] ([facility]) Allergies: Hydromorphone Hcl (reports anaphylaxis), Meperidine Hcl (reports anaphylaxis) Family History: Father-cirrhosis; Mother-CAD Review of Systems - Review of Systems All systems: reviewed and no additional remarkable complaints except - Constitutional Constitutional: As Per HPI - EENT Eyes: absent: As Per HPI, Blind Spots, Blurred Vision, Change in Vision, Decreased Night Vision, Diplopia, Discharge, Dry Eye, Exophthalmos, Floaters, Irritation, Itchy Eyes, Loss of Peripheral Vision, Pain, Photophobia, Requires Corrective Lenses, Sees Flashes, Spots in Vision, Tunnel Vision, Other Visual Disturbances, Loss of Vision, Other Ears: absent: As Per HPI, Decreased Hearing, Ear Discharge, Ear Pain, Tinnitus, Abnormal Hearing, Disequilibrium, Dizziness, Other Nose/Mouth/Throat: absent: As Per HPI, Epistaxis, Nasal Congestion, Nasal Discharge, Nasal Obstruction, Nasal Trauma, Nose Pain, Post Nasal Drip, Sinus Pain, Sinus Pressure, Bleeding Gums, Change in Voice, Dental Pain, Dry Mouth, Dysphagia, Halitosis, Hoarsness, Lip Swelling, Mouth Lesions, Mouth Pain, Odynophagia, Sore Throat, Throat Swelling, Tongue Swelling, Facial Pain, Neck Pain, Neck Mass, Other - Breasts Breasts: absent: As Per HPI, Change in Shape, Mass, Pain, Nipple Discharge, Nipple Inversion, Skin Changes, Swelling, Other - Cardiovascular Cardiovascular: As Per HPI - Respiratory Respiratory: As Per HPI, Cough, Dyspnea - Gastrointestinal Gastrointestinal: absent: As Per HPI, Abdominal Pain, Belching, Bloating, Change in Bowel Habits, Change in Stool Character, Coffee Ground Emesis, Constipation, Cramping, Diarrhea, Dyspepsia, Dysphagia, Early Satiety, Excessive Flatus, Fecal Incontinence, Heartburn, Hematemesis, Hematochezia, Loose Stools, Melena, Nausea, Odynophagia, Temesmus, Vomiting, Other - Genitourinary Genitourinary: absent: As Per HPI, Change in Urinary Stream, Difficulty Urinating, Dysuria, Flank Pain, Hematuria, Pyuria, Nocturia, Urinary Incontinence, Urinary Frequency, Urinary Hesitance, Urinary Urgency, Voiding Freq/Small Amts, Freq UTI, Hx Renal/Bladder Calculi, Hx /Renal Surgery, Bladder Distension, Other - Reproductive: Female Reproductive:Female: absent: As Per HPI, Amenorrhea, Amenorrhea/ Control, Currently Menstual, Cycle <21 Days, Cycle >35 Days, Cycle Variable, Menses 1-7 Days, Menses >/= 8 Days, Menses Variable, Cycle > 4 Weeks Between, No Menses for 6 Months, Heavy Menses, Light Menses, Normal Menses, Spotting Between Cycles , S/P Hysterectomy, Menopausal, Post Menopausal, Premenarche, Abnormal Vaginal Bleeding, Dysmenorrhea, Dyspareunia, Genital Lesions, Genital Pruritis, Pelvic Pain, Prolapse Symptoms, Sexual Dysfunction, Vaginal Discharge, Vaginal Dryness , Vaginal Odor, Vaginal Pruritis, Other - Menstruation Menstruation: absent: As Per HPI, Amenorrhea, Amenorrhea/ Control, Currently Menstual, Cycle <21 Days, Cycle >35 Days, Cycle Variable, Menses 1-7 Days, Menses >/= 8 Days, Menses Variable, Cycle > 4 Weeks Between, No Menses for 6 Months, Heavy Menses, Light Menses, Normal Menses, Spotting Between Cycles , S/P Hysterectomy, Menopausal, Post Menopausal, Premenarche, Abnormal Vaginal Bleeding, Dysmenorrhea, Other - Musculoskeletal Musculoskeletal: As Per HPI - Integumentary Integumentary: absent: As Per HPI, Acne, Alopecia, Bleeding Lesions, Change in Hair, Change in Nails, Change in Pigmentation, Changing Lesions, Dry Skin, Erythema, Furuncle, Hirsutism, Lesions, New Lesions, Non-Healing Lesions, Photosensitivity, Pruritus, Rash, Skin Pain, Skin Ulcer, Sores, Striae, Swelling , Unusual Bruising, Wounds, Jaundice, Other - Neurological Neurological: absent: As Per HPI, Abnormal Gait, Abnormal Hearing, Abnormal Movements, Abnormal Speech, Behavioral Changes, Burning Sensations, Confusion, Convulsions, Disequilibrium, Dizziness, Numbness, Focal Weakness, Frequent Falls , Headaches, Lack of Coordination, Loss of Vision, Memory Loss, Paresthesias, Radicular Pain, Restless Legs, Sensory Deficit, Syncope, Tingling, Tremor, Vertigo, Weakness, Other Visual Disturbances, Other - Psychiatric Psychiatric: absent: As Per HPI, Abnormal Sleep Pattern, Anhedonia, Anxiety, Auditory Hallucinations, Behavioral Changes, Change in Appetite, Change in Libido, Confusion, Depression, Difficulty Concentrating, Hallucinations, Homicidal Ideation, Hopelessness, Irritability, Memory Loss, Mood Swings, Panic Attacks, Paranoia, Suicidal Ideation, Visual Hallucinations, Tactile Hallucinations, Other - Endocrine Endocrine: absent: As Per HPI, Change in Body Appearance, Change in Libido, Cold Intolorance, Deepening of Voice, Excessive Sweating, Fatigue, Flushing, Heat Intolorance, Increase in Ring/Shoe/Hat Size, Palpitations, Polydipsia, Polyphagia, Polyuria, Other - Hematologic/Lymphatic Hematologic: absent: As Per HPI, Easy Bleeding, Easy Bruising, Lymphadenopathy, Other Past Patient History - Infectious Disease Hx of Infectious Diseases: None - Past Medical History & Family History Past Medical History?: Yes - Past Social History Smoking Status: Light Smoker < 10 Cigarettes Daily - CARDIAC Hx Cardia Arrhythmia: Yes Hx Congestive Heart Failure: Yes Hx Hypertension: Yes - PULMONARY Hx Asthma: Yes Hx Chronic Obstructive Pulmonary Disease (COPD): Yes Hx Emphysema: Yes Hx Sleep Apnea: Yes - NEUROLOGICAL Hx Neurological Disorder: No - HEENT Hx HEENT Problems: No - RENAL Hx Chronic Kidney Disease: No - ENDOCRINE/METABOLIC Hx Endocrine Disorders: No Hx Systemic Lupus Erythematosus: Yes Other/Comment: 'A LITTLE BIT OF DIABETES" - HEMATOLOGICAL/ONCOLOGICAL Hx Anemia: Yes - INTEGUMENTARY Hx Dermatological Problems: No - MUSCULOSKELETAL/RHEUMATOLOGICAL Hx Arthritis: Yes Hx Osteoporosis: Yes Hx Rheumatoid Arthritis: Yes - GASTROINTESTINAL Hx Gastrointestinal Disorders: No - GENITOURINARY/GYNECOLOGICAL Hx Genitourinary Disorders: No - PSYCHIATRIC Hx Anxiety: Yes Hx Depression: Yes Hx Schizophrenia: Yes Hx Substance Use: No - SURGICAL HISTORY Hx Cholecystectomy: Yes Hx Tonsillectomy: Yes - ANESTHESIA Hx Anesthesia: Yes Hx Anesthesia Reactions: No Hx Malignant Hyperthermia: No Meds Allergies/Adverse Reactions: Allergies Allergy/AdvReac Type Severity Reaction Status Date / Time hydromorphone HCl Allergy Severe ANAPHYLAXIS Verified 11/01/17 15:27 [From Dilaudid] meperidine HCl [From Demerol] Allergy Severe ANAPHYLAXIS Verified 11/01/17 15:27 - Medications Medications: Current Medications Acetaminophen (Tylenol 325mg Tab) 650 mg PO Q6 PRN PRN Reason: Pain, moderate (4-7) Albuterol/Ipratropium (Duoneb 3 Mg/0.5 Mg (3 Ml) Ud) 3 ml INH RQ6 [facility] Stop: 01/01/18 14:00 Last Admin: 01/01/18 13:31 Dose: 3 ml Alprazolam (Xanax) 0.5 mg PO Q8H PRN PRN Reason: Anxiety Calcium/Vitamin D (Oyster Shell Calcium/Vitamin D 500 Mg-200 Iu) 1 tab PO TID [facility] Last Admin: 01/01/18 13:00 Dose: 1 tab Digoxin (Digoxin) 0.125 mg PO DAILY@1800 [facility] Last Admin: 12/31/17 18:23 Dose: 0.125 mg Duloxetine HCl (Cymbalta) 60 mg PO DAILY [facility] Last Admin: 01/01/18 10:00 Dose: 60 mg Enoxaparin Sodium (Lovenox) 40 mg SC DAILY [facility] Last Admin: 01/01/18 09:58 Dose: 40 mg Folic Acid (Folic Acid) 1 mg PO DAILY [facility] Last Admin: 01/01/18 09:58 Dose: 1 mg Hydroxychloroquine Sulfate (Plaquenil) 200 mg PO BID [facility] Last Admin: 01/01/18 10:00 Dose: 200 mg Ciprofloxacin (Cipro 400mg/200ml Dsw) 400 mg in 200 mls @ 133 mls/hr IVPB Q12H [facility] Last Admin: 01/01/18 11:00 Dose: 133 mls/hr Ceftriaxone Sodium 1 gm/ (Sodium Chloride) 100 mls @ 100 mls/hr IVPB DAILY [facility] Last Admin: 01/01/18 09:00 Dose: 100 mls/hr Azithromycin 500 mg/ Sodium (Chloride) 250 mls @ 250 mls/hr IVPB Q24H [facility] Last Admin: 01/01/18 13:55 Dose: 250 mls/hr Methotrexate (Methotrexate) 15 mg PO QD7 [facility] Methylprednisolone (Solu-Medrol) 40 mg IVP Q8 [facility] Last Admin: 01/01/18 13:01 Dose: 40 mg Oseltamivir Phosphate (Tamiflu Cap) 75 mg PO BID [facility] Stop: 01/05/18 10:04 Last Admin: 01/01/18 09:58 Dose: 75 mg Pantoprazole Sodium (Protonix Ec Tab) 40 mg PO DAILY [facility] Last Admin: 01/01/18 09:25 Dose: 40 mg Saccharomyces Boulardii (Florastor) 250 mg PO DAILY [facility] Last Admin: 01/01/18 09:59 Dose: 250 mg Fluticasone/Salmeterol (Advair Diskus 250/50) 1 puff INH RQ12 [facility] Last Admin: 01/01/18 07:40 Dose: 1 puff Physical Exam - Constitutional Appears: Non-toxic, Chronically Ill - Head Exam Head Exam: ATRAUMATIC, NORMOCEPHALIC - Eye Exam Eye Exam: PERRL. absent: Scleral icterus - ENT Exam ENT Exam: Mucous Membranes Dry - Neck Exam Neck exam: Negative for: Lymphadenopathy, Thyromegaly - Respiratory Exam Respiratory Exam: Decreased Breath Sounds, Rhonchi - Cardiovascular Exam Cardiovascular Exam: REGULAR RHYTHM, +S1, +S2 - GI/Abdominal Exam GI & Abdominal Exam: Diminished Bowel Sounds, Distended, Soft. absent: Rebound , Rigid, Tenderness - Rectal Exam Rectal Exam: Deferred - Exam Exam: NORMAL INSPECTION - Extremities Exam Extremities exam: Positive for: pedal edema, pedal pulses present. Negative for : calf tenderness, tenderness - Back Exam Back exam: absent: CVA tenderness (L), CVA tenderness (R) - Neurological Exam Neurological exam: Alert, CN II-XII Intact, Oriented x3, Reflexes Normal - Psychiatric Exam Psychiatric exam: Depressed - Skin Skin Exam: Dry, Intact Results - Vital Signs Recent Vital Signs: Last Vital Signs Temp 98.6 F 01/01/18 07:30 Pulse 106 H 01/01/18 07:30 Resp 20 01/01/18 07:30 BP 141/78 01/01/18 07:30 Pulse Ox 97 01/01/18 07:30 - Labs Result Diagrams: 01/01/18 08:06 01/01/18 08:06 Labs: Laboratory Results - last 24 hr 12/31/17 01/01/18 01/01/18 17:34 08:06 08:06 WBC 12.7 H RBC 4.20 Hgb 11.4 Hct 33.9 L MCV 80.7 L MCH 27.2 MCHC 33.7 RDW 15.9 H Plt Count 317 MPV 8.1 Neut % (Auto) 90.8 H Lymph % (Auto) 7.8 L Jay % (Auto) 1.1 Eos % (Auto) 0.0 Baso % (Auto) 0.3 Neut # (Auto) 11.5 H Lymph # (Auto) 1.0 Jay # (Auto) 0.1 Eos # (Auto) 0.0 Baso # (Auto) 0.0 Neutrophils % (Manual) 86 H Band Neutrophils % 6 H Lymphocytes % (Manual) 7 L Monocytes % (Manual) 1 Platelet Estimate Normal Anisocytosis (manual) Slight Sodium 137 Potassium 4.4 Chloride 97 L Carbon Dioxide 28 Anion Gap 16 BUN 14 Creatinine 0.7 Est GFR ( Amer) > 60 Est GFR (Non-Af Amer) > 60 Random Glucose 183 H Calcium 9.4 Phosphorus 2.7 Magnesium 2.0 Total Bilirubin 0.5 AST 32 ALT 37 Alkaline Phosphatase 80 Troponin I < 0.0120 Total Protein 7.8 Albumin 3.8 Globulin 3.9 Albumin/Globulin Ratio 1.0 Triglycerides 98 Cholesterol 183 LDL Cholesterol Direct 130 H HDL Cholesterol 41 Free T4 TSH 3rd Generation 0.54 01/01/18 08:06 WBC RBC Hgb Hct MCV MCH MCHC RDW Plt Count MPV Neut % (Auto) Lymph % (Auto) Jay % (Auto) Eos % (Auto) Baso % (Auto) Neut # (Auto) Lymph # (Auto) Jay # (Auto) Eos # (Auto) Baso # (Auto) Neutrophils % (Manual) Band Neutrophils % Lymphocytes % (Manual) Monocytes % (Manual) Platelet Estimate Anisocytosis (manual) Sodium Potassium Chloride Carbon Dioxide Anion Gap BUN Creatinine Est GFR ( Amer) Est GFR (Non-Af Amer) Random Glucose Calcium Phosphorus Magnesium Total Bilirubin AST ALT Alkaline Phosphatase Troponin I Total Protein Albumin Globulin Albumin/Globulin Ratio Triglycerides Cholesterol LDL Cholesterol Direct HDL Cholesterol Free T4 0.86 TSH 3rd Generation Assessment & Plan (1) Chest pain Status: Acute (2) Pneumonia Status: Acute (3) SLE (systemic lupus erythematosus) Status: Chronic (4) Abdominal pain Status: Acute (5) Acute coronary insufficiency syndrome Status: Acute (6) COPD exacerbation Status: Acute (7) Chronic leg pain Status: Acute (8) Chronic pain disorder Status: Acute (9) Depression Status: Chronic (10) Obstructive sleep apnea on CPAP Status: Chronic (11) Rheumatoid arthritis Status: Chronic - Assessment and Plan (Free Text) Assessment: 57-year-old female with history of COPD/asthma, obstructive sleep apnea, a right leg DVT, rheumatoid arthritis, lupus who presented to emergency room with generalized aches and pains, chest pain and shortness of breath. Chest x-ray done in the emergency room was concerning for pneumonia. Plan: improving on zmax/ rocephin/ cipro cultures so far neg consider de-escalation to montherapy with PO Avelox or Levofloxacin upon discharge
--- NOTE | 2018-01-01 14:27 | CP.PCM.PN ---
Subjective - Date & Time of Evaluation Date of Evaluation: 01/01/18 Time of Evaluation: 13:30 - Subjective Subjective: Patient seen and examined patient states breathing is much better Less generalized aches Afebrile Continue nebulizer treatment Continue steroids and tamiflu Objective - Vital Signs/Intake and Output Vital Signs (last 24 hours): Temp Pulse Resp BP Pulse Ox 98.6 F 106 H 20 141/78 97 01/01/18 07:30 01/01/18 07:30 01/01/18 07:30 01/01/18 07:30 01/01/18 07:30 Intake and Output: 01/01/18 01/01/18 06:59 18:59 Intake Total 780 Output Total 400 Balance 380 - Medications Medications: Current Medications Acetaminophen (Tylenol 325mg Tab) 650 mg PO Q6 PRN PRN Reason: Pain, moderate (4-7) Alprazolam (Xanax) 0.5 mg PO Q8H PRN PRN Reason: Anxiety Calcium/Vitamin D (Oyster Shell Calcium/Vitamin D 500 Mg-200 Iu) 1 tab PO TID [facility] Last Admin: 01/01/18 13:00 Dose: 1 tab Digoxin (Digoxin) 0.125 mg PO DAILY@1800 [facility] Last Admin: 12/31/17 18:23 Dose: 0.125 mg Duloxetine HCl (Cymbalta) 60 mg PO DAILY [facility] Last Admin: 01/01/18 10:00 Dose: 60 mg Enoxaparin Sodium (Lovenox) 40 mg SC DAILY [facility] Last Admin: 01/01/18 09:58 Dose: 40 mg Folic Acid (Folic Acid) 1 mg PO DAILY [facility] Last Admin: 01/01/18 09:58 Dose: 1 mg Hydroxychloroquine Sulfate (Plaquenil) 200 mg PO BID [facility] Last Admin: 01/01/18 10:00 Dose: 200 mg Ciprofloxacin (Cipro 400mg/200ml Dsw) 400 mg in 200 mls @ 133 mls/hr IVPB Q12H [facility] Last Admin: 01/01/18 11:00 Dose: 133 mls/hr Ceftriaxone Sodium 1 gm/ (Sodium Chloride) 100 mls @ 100 mls/hr IVPB DAILY [facility] Last Admin: 01/01/18 09:00 Dose: 100 mls/hr Azithromycin 500 mg/ Sodium (Chloride) 250 mls @ 250 mls/hr IVPB Q24H [facility] Last Admin: 01/01/18 13:55 Dose: 250 mls/hr Methotrexate (Methotrexate) 15 mg PO QD7 [facility] Methylprednisolone (Solu-Medrol) 40 mg IVP Q8 [facility] Last Admin: 01/01/18 13:01 Dose: 40 mg Oseltamivir Phosphate (Tamiflu Cap) 75 mg PO BID [facility] Stop: 01/05/18 10:04 Last Admin: 01/01/18 09:58 Dose: 75 mg Pantoprazole Sodium (Protonix Ec Tab) 40 mg PO DAILY [facility] Last Admin: 01/01/18 09:25 Dose: 40 mg Saccharomyces Boulardii (Florastor) 250 mg PO DAILY [facility] Last Admin: 01/01/18 09:59 Dose: 250 mg Fluticasone/Salmeterol (Advair Diskus 250/50) 1 puff INH RQ12 [facility] Last Admin: 01/01/18 07:40 Dose: 1 puff - Labs Labs: 01/01/18 08:06 01/01/18 08:06 PT 11.7 SECONDS (9.7-12.2) 12/31/17 05:38 INR 1.0 12/31/17 05:38 APTT 25 SECONDS (21-34) 12/31/17 05:38 Assessment and Plan (1) Pneumonia Status: Acute (2) COPD exacerbation Status: Acute
[2018-01-01] MEDS: Digoxin 125 mcg (0.125 mg) Tab PO SCH (18:16)
--- NOTE | 2018-01-01 23:50 | CARD ---
APPROVED REPORT EXAM: Two-dimensional and M-mode echocardiogram with Doppler and color Doppler. Other Information Quality : GoodRhythm : INDICATION Congestive Heart Failure COPD LUPUS RISK FACTORS Hypertension Obesity 2D DIMENSIONS IVSd1.3 (0.7-1.1cm)LVDd5.0 (3.9-5.9cm) PWd1.5 (0.7-1.1cm)LVDs3.8 (2.5-4.0cm) FS (%) 24.3 %LVEF (%)48.1 (>50%) M-Mode DIMENSIONS RVDd2.90 (2.1-3.2cm)Left Atrium (MM)4.01 (2.5-4.0cm) IVSd1.05 (0.7-1.1cm)Aortic Root3.44 (2.2-3.7cm) LVDd5.66 (4.0-5.6cm)Aortic Cusp Exc.2.19 (1.5-2.0cm) PWd1.17 (0.7-1.1cm)FS (%) 32 % LVDs3.87 (2.0-3.8cm)LVEF (%)59 (>50%) Mitral Valve MV E [id number]/sMV A Drbbjaqa09.5cm/sE/A ratio1.3 TDI E/Lateral E'0.0E/Medial E'0.0 Tricuspid Valve TR Peak [id number] Peak [id number] <Conclusion> Suboptimal study Left ventricle: thickness: mild concentric thickeningl; size: normal; overall ejection fraction: 65%: diastolic filling pressures: normal Mitral valve: annulus: normal: leaflets: normal: excursion: normal; no significant trans-mitral gradient: no significant incompetence: left atrium: dilated Aortic valve: leaflets: normal: excursion: normal; no significant trans-aortic gradient: No significant incompetence: aortic root: normal Right sided Structures: Pulmonary valve: normal; no significant incompetence; Tricuspid valve: normal; no significant incompetence: Intra-cardiac hemodynamics: pulmonary systolic pressures: normal; central venous pressures: normal No pericardial effusion
[2018-01-02] MEDS: MethylPREDNISolone 40 mg Vial IVP SCH (05:28)
[2018-01-02 07:19] LABS: HEMOGLOBIN 11.2 g/dL (11.0-16.0); LYMPH # 1.2 K/uL (1.0-4.3); LYMPH % 6.5 % (20.0-40.0); MEAN CELL VOLUME 81.2 fL (81.0-99.0); MEAN CORPUSCULAR HEMOGLOBIN 26.7 pg (27.0-31.0); MEAN CORPUSCULAR HGB CONC 32.9 g/dL (33.0-37.0); MONO # 0.6 K/uL (0.0-0.8); MONO % 3.5 % (0.0-10.0); NEUT # 16.1 K/uL (1.8-7.0); NRBC % 0.1 % (0.0-2.0); PLATELET COUNT 353 K/uL (130-400); RED CELL DISTRIBUTION WIDTH 16.3 % (11.5-14.5); WHITE BLOOD COUNT 17.8 K/uL (4.8-10.8)
[2018-01-02 07:46] LABS: BLOOD UREA NITROGEN 19 mg/dL (7-17); GFR AFRICAN-AMERICAN > 60; GFR NON-AFRICAN AMERICAN > 60
[2018-01-02 07:47] LABS: ALB/GLOB RATIO 1.1 (1.0-2.1); ALBUMIN 3.9 g/dL (3.5-5.0); ALT/SGPT 28 U/L (9-52); AST/SGOT 19 U/L (14-36); CALCIUM 9.7 mg/dl (8.6-10.4); MAGNESIUM 2.3 mg/dL (1.6-2.3)
[2018-01-02 08:52] LABS: ANISOCYTOSIS SLIGHT; BANDS 5 % (0-2); LYMPHOCYTE 7 % (20-40); MONOCYTE 3 % (0-10); NEUTROPHIL 85 % (50-75); PLATELET ESTIMATE NORMAL (NORMAL); TOTAL CELLS COUNTED 100
[2018-01-02 08:53] LABS: HYPOCHROMIC SLIGHT; MICROCYTOSIS SLIGHT
[2018-01-02 08:55] LABS: POLYCHROMIC SLIGHT
[2018-01-02] MEDS ORDERED: Acetaminophen-Codeine 300/30 mg Tab PO ONE (10:17)
--- NOTE | 2018-01-02 10:30 | CP.PCM.DIS ---
<Keiko Canales E - Last Filed: 01/02/18 14:27> Provider - Provider Date of Admission: 12/31/17 08:20 Attending physician: Kip Sesay MD Time Spent in preparation of Discharge (in minutes): 45 Diagnosis - Discharge Diagnosis (1) Pneumonia Status: Acute (2) SLE (systemic lupus erythematosus) Status: Chronic (3) Rheumatoid arthritis Status: Chronic Hospital Course - Lab Results Lab Results: Micro Results 12/31/17 08:00 Blood-Venous Blood Culture - Preliminary NO GROWTH AFTER 24 HOURS 12/31/17 08:30 Blood-Venous Blood Culture - Preliminary NO GROWTH AFTER 24 HOURS Most Recent Lab Values WBC 17.8 K/uL (4.8-10.8) H 01/02/18 07:02 RBC 4.20 Mil/uL (3.80-5.20) 01/02/18 07:02 Hgb 11.2 g/dL (11.0-16.0) 01/02/18 07:02 Hct 34.1 % (34.0-47.0) 01/02/18 07:02 MCV 81.2 fL (81.0-99.0) 01/02/18 07:02 MCH 26.7 pg (27.0-31.0) L 01/02/18 07:02 MCHC 32.9 g/dL (33.0-37.0) L 01/02/18 07:02 RDW 16.3 % (11.5-14.5) H 01/02/18 07:02 Plt Count 353 K/uL (130-400) 01/02/18 07:02 MPV 8.0 fL (7.2-11.7) 01/02/18 07:02 Neut % (Auto) 90.0 % (50.0-75.0) H 01/02/18 07:02 Lymph % (Auto) 6.5 % (20.0-40.0) L 01/02/18 07:02 Garvin % (Auto) 3.5 % (0.0-10.0) 01/02/18 07:02 Eos % (Auto) 0.0 % (0.0-4.0) 01/02/18 07:02 Baso % (Auto) 0.0 % (0.0-2.0) 01/02/18 07:02 Neut # (Auto) 16.1 K/uL (1.8-7.0) H 01/02/18 07:02 Lymph # (Auto) 1.2 K/uL (1.0-4.3) 01/02/18 07:02 Garvin # (Auto) 0.6 K/uL (0.0-0.8) 01/02/18 07:02 Eos # (Auto) 0.0 K/uL (0.0-0.7) 01/02/18 07:02 Baso # (Auto) 0.0 K/uL (0.0-0.2) 01/02/18 07:02 Neutrophils % (Manual) 85 % (50-75) H 01/02/18 07:02 Band Neutrophils % 5 % (0-2) H 01/02/18 07:02 Lymphocytes % (Manual) 7 % (20-40) L 01/02/18 07:02 Monocytes % (Manual) 3 % (0-10) 01/02/18 07:02 Platelet Estimate Normal (NORMAL) 01/02/18 07:02 Polychromasia Slight 01/02/18 07:02 Hypochromasia (manual) Slight 01/02/18 07:02 Anisocytosis (manual) Slight 01/02/18 07:02 Microcytosis (manual) Slight 01/02/18 07:02 ESR 43 mm/hr (0-20) H 12/31/17 05:38 PT 11.7 SECONDS (9.7-12.2) 12/31/17 05:38 INR 1.0 12/31/17 05:38 APTT 25 SECONDS (21-34) 12/31/17 05:38 Sodium 138 mmol/L (132-148) 01/02/18 07:02 Potassium 4.3 mmol/L (3.6-5.2) 01/02/18 07:02 Chloride 97 mmol/L (98-107) L 01/02/18 07:02 Carbon Dioxide 30 mmol/L (22-30) 01/02/18 07:02 Anion Gap 16 (10-20) 01/02/18 07:02 BUN 19 mg/dL (7-17) H 01/02/18 07:02 Creatinine 0.9 mg/dL (0.7-1.2) 01/02/18 07:02 Est GFR ( Amer) > 60 01/02/18 07:02 Est GFR (Non-Af Amer) > 60 01/02/18 07:02 Random Glucose 219 mg/dL (65-105) H 01/02/18 07:02 Calcium 9.7 mg/dl (8.6-10.4) 01/02/18 07:02 Phosphorus 2.8 mg/dL (2.5-4.5) 01/02/18 07:02 Magnesium 2.3 mg/dL (1.6-2.3) 01/02/18 07:02 Total Bilirubin 0.1 mg/dL (0.2-1.3) L 01/02/18 07:02 AST 19 U/L (14-36) 01/02/18 07:02 ALT 28 U/L (9-52) 01/02/18 07:02 Alkaline Phosphatase 75 U/L (38-126) 01/02/18 07:02 Total Creatine Kinase 113 U/L (30-135) 12/31/17 05:38 CK-MB (Mass) 1.19 ng/mL (0.0-3.38) 12/31/17 05:38 Troponin I < 0.0120 ng/mL (0.00-0.120) 12/31/17 17:34 NT-Pro-B Natriuret Pep 47.5 pg/mL (0-900) 12/31/17 05:38 Total Protein 7.3 g/dL (6.3-8.3) 01/02/18 07:02 Albumin 3.9 g/dL (3.5-5.0) 01/02/18 07:02 Globulin 3.4 gm/dL (2.2-3.9) 01/02/18 07:02 Albumin/Globulin Ratio 1.1 (1.0-2.1) 01/02/18 07:02 Triglycerides 98 mg/dL (0-149) 01/01/18 08:06 Cholesterol 183 mg/dL (0-199) 01/01/18 08:06 LDL Cholesterol Direct 130 mg/dL (0-129) H 01/01/18 08:06 HDL Cholesterol 41 mg/dL (30-70) 01/01/18 08:06 Free T4 0.86 ng/dL (0.78-2.19) 01/01/18 08:06 TSH 3rd Generation 0.54 mIU/L (0.46-4.68) 01/01/18 08:06 Urine Color Yellow (YELLOW) 12/31/17 10:30 Urine Clarity Clear (Clear) 12/31/17 10:30 Urine pH 5.0 (5.0-8.0) 12/31/17 10:30 Ur Specific Girard 1.019 (1.003-1.030) 12/31/17 10:30 Urine Protein Negative mg/dL (NEGATIVE) 12/31/17 10:30 Urine Glucose (UA) Normal mg/dL (Normal) 12/31/17 10:30 Urine Ketones Negative mg/dL (NEGATIVE) 12/31/17 10:30 Urine Blood Negative (NEGATIVE) 12/31/17 10:30 Urine Nitrate Negative (NEGATIVE) 12/31/17 10:30 Urine Bilirubin Negative (NEGATIVE) 12/31/17 10:30 Urine Urobilinogen Normal mg/dL (0.2-1.0) 12/31/17 10:30 Ur Leukocyte Esterase Neg Elijah/uL (Negative) 12/31/17 10:30 Urine WBC (Auto) 1 /hpf (0-5) 12/31/17 10:30 Urine RBC (Auto) < 1 /hpf (0-3) 12/31/17 10:30 Ur Squamous Epith Cells 1 /hpf (0-5) 12/31/17 10:30 Hyaline Casts 0-2 /lpf (0-2) 12/31/17 10:30 Digoxin 0.5 ng/mL (0.8-2.0) L 12/31/17 10:00 Urine Opiates Screen Positive (NEGATIVE) H 12/31/17 11:00 Urine Methadone Screen Negative (NEGATIVE) 12/31/17 11:00 Ur Barbiturates Screen Negative (NEGATIVE) 12/31/17 11:00 Ur Phencyclidine Scrn Negative (NEGATIVE) 12/31/17 11:00 Ur Amphetamines Screen Negative (NEGATIVE) 12/31/17 11:00 U Benzodiazepines Scrn Positive (NEGATIVE) 12/31/17 11:00 U Oth Cocaine Metabols Negative (NEGATIVE) 12/31/17 11:00 U Cannabinoids Screen Negative (NEGATIVE) 12/31/17 11:00 Influenza Typ A,B (EIA) Negative for flu a/b (NEGATIVE) 12/31/17 08:56 Ur L.pneumophila Ag Negative (NEGATIVE) 12/31/17 10:30 - Hospital Course Hospital Course: HPI (As per admission): Ms. Lee is a 57 year old female with a PMHx of lupus, rheumatoid arthritis, chronic R leg DVT, CHF, COPD/asthma, sleep apnea who presents with diffuse body aches and chest pain which she attributes to a lupus flare-up. Upon arrival to the ED patient's CXR was concerning for pneunomia and admission warranted. As per the patient she states she spent her morning yesterday cleaning her house and felt fine. She went out to dinner with her family for her birthday and symptom onset was during this time, at around 9pm she began feeling diffuse body aches in her shoulders, arms, hands, legs and feet, typical of her lupus flare-ups. She returned home at 11:30pm, at which time she began to feel sharp, constant pain in her bilateral upper chest, right greater than left side, worse with breathing and palpating the area. She states that she does not normally get chest pain with her lupus flare-ups. She also reports feeling generally tired, weak, and short of breath. She went to sleep (requiring 4 pillows) but was awoken by pain at 1am. She called the ambulance at 1am for diffuse body pain and chest pain. She came to the emergency department anticipating that she had a lupus flare up but during her workup her CXR was concerning for PNA. Patient denies recent illness, fever, nausea, vomiting, diarrhea, constipation, urinary changes. She has been eating well. She last saw her bowl turner Dr. Matos on October 17, 2017 (she sees him every 3 months). She last saw her courtroom deputy or calendar clerk Dr. Choi 5 months ago and was started on a CPAP machine, but she states that the machine broke and she hasn't used it in the last 5 months. She reports a negative PPD 3 years ago. Last received PNA shot 5 years ago. Hospital Course: Patient was admitted with the diagnosis of Pneumonia. Patient's outpatient courtroom deputy or calendar clerk, Dr. Choi was consulted, who agreed with course of treatment initiated by the medicine team; appropriate antibiotics. steroids, tamiflu and breathing treatment. In addition, ID consult was placed to Dr. Valencia, who also agreed with the course of management per medicine team. Patient did well over the course of admission with no acute issues. Patient was cleared by courtroom deputy or calendar clerk, Dr. Choi and medicine team prior to discharge. Patient was discharge with appropriate instructions and medications. Pertinent imaging/ Labs: Chest x-ray in the ED: Mild to moderate venous congestion. Right hilar prominence. Patchy consolidative changes at the lateral aspect of the right lung base. Lines and tubes in stable position. Radioopaque density projects over the left lung base, possibly external. Blood culture: Negative x 48 hours Discharge Exam - Head Exam Head Exam: ATRAUMATIC, NORMOCEPHALIC Discharge Plan - Discharge Medications Prescriptions: Fluticasone/Salmeterol 250/50 [Advair Diskus] 1 puff IH Q12 #1 puff Methylprednisolone [Medrol Dose Pack (21 tabs)] 4 mg PO DAILY #21 mg Moxifloxacin [Avelox] 400 mg PO DAILY #8 tab - Follow Up Plan Condition: FAIR Disposition: HOME/ ROUTINE Instructions: Heart Failure, Adult, Chest Pain, Pneumonia, Adult (DC) Additional Instructions: TOLERATED Referrals: Catracho Choi MD [Staff Provider] - <Arianna Tam V - Last Filed: 01/02/18 19:31> Provider - Provider Date of Admission: 12/31/17 08:20 Attending physician: Arianna Tam, DO Hospital Course - Lab Results Lab Results: Micro Results 12/31/17 08:00 Blood-Venous Blood Culture - Preliminary NO GROWTH AFTER 48 HOURS 12/31/17 08:30 Blood-Venous Blood Culture - Preliminary NO GROWTH AFTER 48 HOURS 12/31/17 10:30 Urine,Clean Catch Urine Culture - Final No Growth (<1,000 CFU/ML) Most Recent Lab Values WBC 17.8 K/uL (4.8-10.8) H 01/02/18 07:02 RBC 4.20 Mil/uL (3.80-5.20) 01/02/18 07:02 Hgb 11.2 g/dL (11.0-16.0) 01/02/18 07:02 Hct 34.1 % (34.0-47.0) 01/02/18 07:02 MCV 81.2 fL (81.0-99.0) 01/02/18 07:02 MCH 26.7 pg (27.0-31.0) L 01/02/18 07:02 MCHC 32.9 g/dL (33.0-37.0) L 01/02/18 07:02 RDW 16.3 % (11.5-14.5) H 01/02/18 07:02 Plt Count 353 K/uL (130-400) 01/02/18 07:02 MPV 8.0 fL (7.2-11.7) 01/02/18 07:02 Neut % (Auto) 90.0 % (50.0-75.0) H 01/02/18 07:02 Lymph % (Auto) 6.5 % (20.0-40.0) L 01/02/18 07:02 Garvin % (Auto) 3.5 % (0.0-10.0) 01/02/18 07:02 Eos % (Auto) 0.0 % (0.0-4.0) 01/02/18 07:02 Baso % (Auto) 0.0 % (0.0-2.0) 01/02/18 07:02 Neut # (Auto) 16.1 K/uL (1.8-7.0) H 01/02/18 07:02 Lymph # (Auto) 1.2 K/uL (1.0-4.3) 01/02/18 07:02 Garvin # (Auto) 0.6 K/uL (0.0-0.8) 01/02/18 07:02 Eos # (Auto) 0.0 K/uL (0.0-0.7) 01/02/18 07:02 Baso # (Auto) 0.0 K/uL (0.0-0.2) 01/02/18 07:02 Neutrophils % (Manual) 85 % (50-75) H 01/02/18 07:02 Band Neutrophils % 5 % (0-2) H 01/02/18 07:02 Lymphocytes % (Manual) 7 % (20-40) L 01/02/18 07:02 Monocytes % (Manual) 3 % (0-10) 01/02/18 07:02 Platelet Estimate Normal (NORMAL) 01/02/18 07:02 Polychromasia Slight 01/02/18 07:02 Hypochromasia (manual) Slight 01/02/18 07:02 Anisocytosis (manual) Slight 01/02/18 07:02 Microcytosis (manual) Slight 01/02/18 07:02 ESR 43 mm/hr (0-20) H 12/31/17 05:38 PT 11.7 SECONDS (9.7-12.2) 12/31/17 05:38 INR 1.0 12/31/17 05:38 APTT 25 SECONDS (21-34) 12/31/17 05:38 Sodium 138 mmol/L (132-148) 01/02/18 07:02 Potassium 4.3 mmol/L (3.6-5.2) 01/02/18 07:02 Chloride 97 mmol/L (98-107) L 01/02/18 07:02 Carbon Dioxide 30 mmol/L (22-30) 01/02/18 07:02 Anion Gap 16 (10-20) 01/02/18 07:02 BUN 19 mg/dL (7-17) H 01/02/18 07:02 Creatinine 0.9 mg/dL (0.7-1.2) 01/02/18 07:02 Est GFR ( Amer) > 60 01/02/18 07:02 Est GFR (Non-Af Amer) > 60 01/02/18 07:02 Random Glucose 219 mg/dL (65-105) H 01/02/18 07:02 Calcium 9.7 mg/dl (8.6-10.4) 01/02/18 07:02 Phosphorus 2.8 mg/dL (2.5-4.5) 01/02/18 07:02 Magnesium 2.3 mg/dL (1.6-2.3) 01/02/18 07:02 Total Bilirubin 0.1 mg/dL (0.2-1.3) L 01/02/18 07:02 AST 19 U/L (14-36) 01/02/18 07:02 ALT 28 U/L (9-52) 01/02/18 07:02 Alkaline Phosphatase 75 U/L (38-126) 01/02/18 07:02 Total Creatine Kinase 113 U/L (30-135) 12/31/17 05:38 CK-MB (Mass) 1.19 ng/mL (0.0-3.38) 12/31/17 05:38 Troponin I < 0.0120 ng/mL (0.00-0.120) 12/31/17 17:34 NT-Pro-B Natriuret Pep 47.5 pg/mL (0-900) 12/31/17 05:38 Total Protein 7.3 g/dL (6.3-8.3) 01/02/18 07:02 Albumin 3.9 g/dL (3.5-5.0) 01/02/18 07:02 Globulin 3.4 gm/dL (2.2-3.9) 01/02/18 07:02 Albumin/Globulin Ratio 1.1 (1.0-2.1) 01/02/18 07:02 Triglycerides 98 mg/dL (0-149) 01/01/18 08:06 Cholesterol 183 mg/dL (0-199) 01/01/18 08:06 LDL Cholesterol Direct 130 mg/dL (0-129) H 01/01/18 08:06 HDL Cholesterol 41 mg/dL (30-70) 01/01/18 08:06 Free T4 0.86 ng/dL (0.78-2.19) 01/01/18 08:06 TSH 3rd Generation 0.54 mIU/L (0.46-4.68) 01/01/18 08:06 Urine Color Yellow (YELLOW) 12/31/17 10:30 Urine Clarity Clear (Clear) 12/31/17 10:30 Urine pH 5.0 (5.0-8.0) 12/31/17 10:30 Ur Specific Girard 1.019 (1.003-1.030) 12/31/17 10:30 Urine Protein Negative mg/dL (NEGATIVE) 12/31/17 10:30 Urine Glucose (UA) Normal mg/dL (Normal) 12/31/17 10:30 Urine Ketones Negative mg/dL (NEGATIVE) 12/31/17 10:30 Urine Blood Negative (NEGATIVE) 12/31/17 10:30 Urine Nitrate Negative (NEGATIVE) 12/31/17 10:30 Urine Bilirubin Negative (NEGATIVE) 12/31/17 10:30 Urine Urobilinogen Normal mg/dL (0.2-1.0) 12/31/17 10:30 Ur Leukocyte Esterase Neg Elijah/uL (Negative) 12/31/17 10:30 Urine WBC (Auto) 1 /hpf (0-5) 12/31/17 10:30 Urine RBC (Auto) < 1 /hpf (0-3) 12/31/17 10:30 Ur Squamous Epith Cells 1 /hpf (0-5) 12/31/17 10:30 Hyaline Casts 0-2 /lpf (0-2) 12/31/17 10:30 Digoxin 0.5 ng/mL (0.8-2.0) L 12/31/17 10:00 Urine Opiates Screen Positive (NEGATIVE) H 12/31/17 11:00 Urine Methadone Screen Negative (NEGATIVE) 12/31/17 11:00 Ur Barbiturates Screen Negative (NEGATIVE) 12/31/17 11:00 Ur Phencyclidine Scrn Negative (NEGATIVE) 12/31/17 11:00 Ur Amphetamines Screen Negative (NEGATIVE) 12/31/17 11:00 U Benzodiazepines Scrn Positive (NEGATIVE) 12/31/17 11:00 U Oth Cocaine Metabols Negative (NEGATIVE) 12/31/17 11:00 U Cannabinoids Screen Negative (NEGATIVE) 12/31/17 11:00 Influenza Typ A,B (EIA) Negative for flu a/b (NEGATIVE) 12/31/17 08:56 Ur L.pneumophila Ag Negative (NEGATIVE) 12/31/17 10:30 Attending/Attestation - Attestation I have personally seen and examined this patient.: Yes I have fully participated in the care of the patient.: Yes I have reviewed all pertinent clinical information, including history, physical exam and plan: Yes Notes (Text): Patient seen, examined and case discussed with medical assisting program director. Patient seen this morning. Patient is ambulatory. Reports breathing has improved. Patient requesting her Tylenol with codeine; we have confirmed her medication with her pharmacy and confirms she takes this as well as her other medications. Patient is medically stable for discharge. Patient will need to follow-up with pulmonary as outpatient. Medications upon discharge: 1) Medrol dose pack 2) Avelox 400mg PO daily for 8 days (8 tabs) 3) Advair 250/50 1 puff inhaled Q12H Patient to continue home medications on discharge. Patient will need to follow-up with Dr. Choi and Dr. vincent on discharge. This is a summary of patient's hospitalization. please see discharge summary. Discharge Diagnoses: 1) Community acquired pneumonia * History of COPD/CHF puts patient at risk * Infectious Disease (Dr. Valencia) on board--->help appreciated * Medications: * Azithromycin 500mg IVPB once daily (started in ED on 12/31- * Ceftriaxone 1 gram IVPB once daily (started 01/01-) * Ciprofloxacin 400mg IVPB q12 hours (started 12/31-) * Imaging: Chest x-ray (12/31/17): Mild to moderate venous congestion. Right hilar prominence. Patchy consolidative changes at the lateral aspect of the right lung base. Lines and tubes in stable position. Radioopaque density projects over the left lung base, possibly external * Influenza Typ A,B: negative for flu a/b * Ur L.pneumophilia Ag: negative * White count secondary to steroids 2) Chest pain secondary to COPD exacerbation (Resolved) * Chest x-ray (12/31/17): Mild to moderate venous congestion. Right hilar prominence. Patchy consolidativechanges at the lateral aspect of the right lung base. Lines and tubes in stable position. Radioopaque density projects over the left lung base, possibly external. * Labs: Troponin negative x 3, EKG NSR x3 * Echocardiogram completed and reviewed official report available in the chart * TSH/Free T4- normal * Lipid Panel- LDL 130/HDL 41 3) History of COPD exacerbation w bronchitis (improved) * Medications: * Albuterol/Ipratropium (DuoNeb) 3mL INH RQ6-->continue Ventolin on discharg * Fluticasone/Salmeterol (Advair Diskus 250/50) 1 puff INH RQ12-->continue on discharge * Methylprednisolone (Solu-Medrol) 40mg IVP Q8H---> Start medrol dose pack on discharge * Chest x-ray (12/31/17): Mild to moderate venous congestion. Right hilar prominence. Patchy consolidative changes at the lateral aspect of the right lung base. Lines and tubes in stable position. Radioopaque density projects over the left lung base, possibly external. 4) History of Congestive Heart Failure--Questionable; stable * Medications: Digoxin 0.125mg PO daily * Labs: Pro-B INCIDENT MANAGER: 47.5; Dig level: 0.5 (low) * Recommended to follow-up with cardiology upon discharge. * Echocardiogram completed supporting long standing hypertension * Noncompliant; She is a patient of Dr. Woodward but has not followed up with him in several months. Monitor vitals and start meds as needed. 5) History of Lupus (chronic) Home Medications Continued: Calcium/Vitamin D 1 tab PO TID Folic Acid 1mg PO daily Hydroxychloroquine Sulfate (Plaquenil) 200mg PO BID Methotrexate 15mg PO once/week (Tuesday) 6) History of Rheumatoid Arthritis (chronic) Medications: Calcium/Vitamin D 1 tab PO TID Folic Acid 1mg PO daily Hydroxychloroquine Sulfate (Plaquenil) 200mg PO BID Methotrexate 15mg PO once/week (Tuesday) Methylprednisolone (Solu-Medrol) 40mg IVP Q8H--> discharge on Medrol dose pack Narcotics discontinued Tylenol w codeine prn pain 7) History of chronic DVT RLE- s/p IVC filter (chronic) * Medications: Enoxaparin (Lovenox) 40mg SC daily * Most recent lower extremity doppler was negative in January 2017 * INR on admission 1.0 8) History of Depression (chronic) Medications: Cymbalta (Duloxetine Hcl) 60mg PO daily Xanax (alprazolam) 0.5mg PO Q8H PRN anxiety 9) Prophylaxis DVT: risk score of 7; Enoxaparin (Lovenox) 40mg SC daily GI: Pantoprazole (Protonix) 40mg PO daily Heart healthy, carbohydrate controlled diet Florastor daily
[2018-01-02] MEDS: Saccharomyces Boulardi 250 mg Cap PO SCH (10:40)
[2018-01-02] MEDS: Enoxaparin 40 mg Syringe SC SCH (10:51)
[2018-01-02] MEDS: Pantoprazole 40 mg EC Tab PO SCH (10:52)
[2018-01-02] MEDS: Calcium-Vit D 500 mg-200 Units Tab UD PO SCH ×2 (10:52→19:21)
[2018-01-02 16:08] VITALS: BP 130/74; PULSE 92; RESP 18; TEMP 98.1; O2SAT 100
[2018-01-02] MEDS ORDERED: Acetaminophen-Codeine 300/30 mg Tab PO PRN (16:18)
[2018-01-02 19:22] VITALS: PULSE 92
[2018-01-02] MEDS: Digoxin 125 mcg (0.125 mg) Tab PO SCH (19:22)
--- NOTE | 2018-01-03 18:37 | PCM.HF ---
Heart Failure Core Measure - Heart Failure Ejection Fraction: 40 % or Greater Left Ventricular Function to be assessed after discharge: No DANISHA Inhibitor Prescribed: No Contraindication/Reason for not providing: Not indicated Beta-Anthony Prescribed: None Contraindication/Reason for not providing: Not indicated Angiotensin II Receptor Anthony Prescribed: No Contraindication/Reason for not providing: Not indicated AnticoagulationTherapy for Atrial Fibrillation/Atrialflutter: No Contraindication/Reason for not providing: Not diagnosis Aldosterone Antagonist Prescribed: No Contraindication/Reason for not providing: Not indicated Hydralazine Nitrate Prescribed: No Contraindication/Reason for not providing: Not indicated Implantable Cardioverter Defibrillator Therapy: No Contraindication/Reason for not providing: Not indicated Cardiac Resynchronization Therapy Prescribed: No Contraindication/Reason for not providing: Not indicated - Follow up Will be discharged to: Home Follow Up Date (must be within 7 days from discharge): 01/05/18 (Patient's PMD ) Follow Up Time: 09:00
== END 2018-01-02 20:30 | disposition home or self-care (01) ==
LOC: C.ER 04:03 → C.9E 08:20 → C.6T 17:05
PROVIDERS: ADMIT Hospitalist; ATTEND Hospitalist
DX: J18.9 Pneumonia, unspecified organism (principal); F20.9 Schizophrenia, unspecified; G47.33 Obstructive sleep apnea (adult) (pediatric); I11.0 Hypertensive heart disease with heart failure; I50.9 Heart failure, unspecified; I82.501 Chronic embolism and thrombosis of unspecified deep veins of right lower extremity; J44.0 Chronic obstructive pulmonary disease with (acute) lower respiratory infection; J44.1 Chronic obstructive pulmonary disease with (acute) exacerbation; M06.9 Rheumatoid arthritis, unspecified; M32.9 Systemic lupus erythematosus, unspecified; M81.0 Age-related osteoporosis without current pathological fracture
CPT/HCPCS: 36415; 71045; 80053; 80061; 80162; 80324; 80345; 80346; 80349; 80353; 80358; 80361; 81001; 82550; 82553; 83735; 83880; 83992; 84100; 84439; 84443; 84484; 85025; 85610; 85651; 85730; 86738; 87040; 87086; 87449; 87804; 87899; 93306; 94640; 96360; 96365; 96366; 96372; 96374; 99285; G0378; J0456; J0696; J0744; J1650; J2270; J2920; J7040; J7050

== ENCOUNTER 2018-02-27 13:23 | Emergency (ER) | payer MEDICAID ==
[2018-02-27 13:24] VITALS: PULSE 92; BMI 39.5
[2018-02-27 13:45] VITALS: BP 126/82; PULSE 88; RESP 18; TEMP 97.8; O2SAT 95
--- NOTE | 2018-02-27 14:45 | RAD ---
PROCEDURE: Right Foot Radiographs. HISTORY: Foot pain, swelling dorsally COMPARISON: None. FINDINGS: BONES: There is no acute displaced fracture or bone destruction. Bone alignment is normal. There is mild diffuse bone demineralization. There is a prominent plantar calcaneal spur and dorsal calcaneal enthesophyte. JOINTS: There is mild degenerative osteoarthrosis in the intertarsal joints. SOFT TISSUES: There is mild dorsal soft tissue swelling. OTHER FINDINGS: None. IMPRESSION: No acute fracture or dislocation. Mild degenerative osteoarthrosis in the intertarsal joints and mild dorsal soft tissue swelling.
--- NOTE | 2018-02-27 15:28 | C.PDOC ---
History Of Present Illness The patient presents to the ED for evaluation of right foot pain which began 3 days ago. Patient states symptoms started spontaneously and the pain is non- radiating. Denies trauma/injury to the area, falls, or extremity numbness/ weakness. Time Seen by Provider: 02/27/18 13:59 Chief Complaint (Nursing): Lower Extremity Problem/Injury History Per: Patient History/Exam Limitations: no limitations Onset/Duration Of Symptoms: Days (3) Current Symptoms Are (Timing): Still Present Additional History Per: Patient - Ankle/Foot Description Of Injury: denies: Fell, Struck With Object, Struck Against Object, Twisted Past Medical History Reviewed: Historical Data, Nursing Documentation, Vital Signs Vital Signs: Last Vital Signs Temp 97.8 F 02/27/18 13:41 Pulse 88 02/27/18 13:41 Resp 18 02/27/18 13:41 BP 126/82 02/27/18 13:41 Pulse Ox 95 02/27/18 21:25 - Medical History PMH: Anemia, Anxiety, Arthritis, Asthma, Cardia Arrhythmia, CHF, COPD, Depression, Emphysema, HTN, Osteoporosis, Rheumatoid Arthritis, Schizophrenia, Sleep Apnea Denies: Chronic Kidney Disease Surgical History: Cholecystectomy, Tonsillectomy, - [facility] NASAL LACERATION SUTURE (11/07/13) NON-INVASIVE MECHANICAL VENTILATION (07/19/14) TETANUS TOXOID ADMINIST (11/07/13) Family History: States: [place] (Mother) - Social History Hx Tobacco Use: No Hx Alcohol Use: Yes Hx Substance Use: No - Immunization History Hx Tetanus Toxoid Vaccination: No Hx Influenza Vaccination: No Hx Pneumococcal Vaccination: Yes Review Of Systems Musculoskeletal: Positive for: Foot Pain (right ) Physical Exam - Physical Exam Appears: Non-toxic, No Acute Distress Skin: Normal Color, Warm, Dry, No Rash Head: Atraumatic, Normacephalic Eye(s): bilateral: Normal Inspection Oral Mucosa: Moist Neck: Supple Chest: Symmetrical, No Deformity, No Tenderness Cardiovascular: Rhythm Regular, No Murmur Respiratory: Normal Breath Sounds, No Rales, No Rhonchi, No Wheezing Extremity: Normal ROM, Tenderness (to dorsal aspect of right foot ), Capillary Refill (less than 2 seconds ), No Deformity, Swelling (to dorsal aspect of right foot ) Neurological/Psych: Oriented x3, Normal Speech, Normal Cognition ED Course And Treatment O2 Sat by Pulse Oximetry: 95 (on RA ) Pulse Ox Interpretation: Normal Medical Decision Making Medical Decision Making: Progress: Right foot XR ordered and reviewed. Toradol IM administered. No evidence of cellulitis, ulcers or injury at this time. On re-exam, the patient reports improvement of symptoms. Ambulatory in the ED with steady gait. Disposition - Disposition Referrals: Isaac Willis MD [Staff Provider] - Disposition: HOME/ ROUTINE Disposition Time: 15:29 Condition: GOOD Additional Instructions: Follow up with the medical doctor within 1-2 days. return if worsened. Prescriptions: Naproxen [Naprosyn] 1 tab PO BID PRN #25 tab PRN Reason: Pain predniSONE [Prednisone] 10 mg PO BID #10 tab Instructions: Osteoarthritis Forms: [facility] (Spanish) - Clinical Impression Clinical Impression: Foot pain - PA / CAREER TECHNICAL COUNSELOR / Resident Statement MD/DO has reviewed & agrees with the documentation as recorded. - Scribe Statement The provider has reviewed the documentation as recorded by the Scribe (Vickie Sesay) All medical record entries made by the Scribe were at my direction and personally dictated by me. I have reviewed the chart and agree that the record accurately reflects my personal performance of the history, physical exam, medical decision making, and the department course for this patient. I have also personally directed, reviewed, and agree with the discharge instructions and disposition.
== END 2018-02-27 16:00 | disposition home or self-care (01) ==
LOC: C.ER 13:23
DX: M79.671 Pain in right foot (principal); F20.9 Schizophrenia, unspecified; M06.9 Rheumatoid arthritis, unspecified; I10 Essential (primary) hypertension; I50.9 Heart failure, unspecified; J44.9 Chronic obstructive pulmonary disease, unspecified
CPT/HCPCS: 73630; 96372; 99284; J1885

== ENCOUNTER 2018-03-16 17:39 | Observation (INO) | payer MEDICAID ==
[2018-03-16 17:42] VITALS: BMI 39.9
[2018-03-16] MEDS ORDERED: Iodixanol 320 MG/ML 100 ML BOTTLE IV ONE (17:55)
[2018-03-16 17:57] LABS: BASO # 0.1 K/uL (0.0-0.2); BASO % 0.9 % (0.0-2.0); EOS # 0.3 K/uL (0.0-0.7); EOS % 2.2 % (0.0-4.0); HEMOGLOBIN 12.3 g/dL (11.0-16.0); LYMPH # 2.7 K/uL (1.0-4.3); LYMPH % 22.6 % (20.0-40.0); MEAN CELL VOLUME 80.3 fL (81.0-99.0); MEAN CORPUSCULAR HEMOGLOBIN 26.7 pg (27.0-31.0); MEAN CORPUSCULAR HGB CONC 33.3 g/dL (33.0-37.0); MEAN PLATELET VOLUME 7.7 fL (7.2-11.7); MONO # 0.7 K/uL (0.0-0.8); MONO % 6.1 % (0.0-10.0); NEUT # 8.3 K/uL (1.8-7.0); NEUT % 68.2 % (50.0-75.0); NRBC % 0.1 % (0.0-2.0); RBC 4.61 Mil/uL (3.80-5.20); RED CELL DISTRIBUTION WIDTH 16.4 % (11.5-14.5); WHITE BLOOD COUNT 12.1 K/uL (4.8-10.8)
[2018-03-16 18:05] LABS: INR 1.1; PROTHROMBIN TIME 12.2 SECONDS (9.7-12.2)
--- NOTE | 2018-03-16 18:08 | CT ---
PROCEDURE: CT HEAD WITHOUT CONTRAST. HISTORY: Code Stroke COMPARISON: None available. TECHNIQUE: Axial computed tomography images were obtained through the head/brain without intravenous contrast. Radiation dose: Total exam DLP = 803.90 mGy-cm. This CT exam was performed using one or more of the following dose reduction techniques: Automated exposure control, adjustment of the mA and/or kV according to patient size, and/or use of iterative reconstruction technique. FINDINGS: HEMORRHAGE: No intracranial hemorrhage. BRAIN: No mass effect or edema. Atrophy/ bilateral lacunear infarcts. VENTRICLES: Unremarkable. No hydrocephalus. CALVARIUM: Unremarkable. PARANASAL SINUSES: Unremarkable as visualized. No significant inflammatory changes. MASTOID AIR CELLS: Unremarkable as visualized. No inflammatory changes. OTHER FINDINGS: None. IMPRESSION: No acute intracranial abnormalities. No significant findings to account for the clinical presentation. Code stroke protocol: Study completed 18:01 Radiologist notified 18:04 Results conveyed verbally at 18:06 Interpretation finalized and available for review 18:07
[2018-03-16 18:09] LABS: ALB/GLOB RATIO 1.1 (1.0-2.1); ALBUMIN 3.7 g/dL (3.5-5.0); ALT/SGPT 33 U/L (9-52); AST/SGOT 27 U/L (14-36); BLOOD UREA NITROGEN 11 mg/dL (7-17); CALCIUM 9.6 mg/dl (8.6-10.4); GFR AFRICAN-AMERICAN > 60; GFR NON-AFRICAN AMERICAN > 60; HDL CHOLESTEROL 38 mg/dL (30-70)
[2018-03-16 18:20] LABS: LDL CHOLESTEROL 109 mg/dL (0-129)
--- NOTE | 2018-03-16 18:57 | CT ---
PROCEDURE: CT Angiography of the neck with contrast HISTORY: code stroke alert COMPARISON: None available. TECHNIQUE: Contiguous axial images of the neck were obtained from the level of the skull-base to the superior mediastinum in the arteriographic phase of enhancement. Coronal and sagittal reformats or also generated. IV contrast dose: 100 cc of Visipaque Radiation Dose - DLP: 776 mGy-cm This CT exam was performed using one or more of the following dose reduction techniques: Automated exposure control, adjustment of the mA and/or kV according to patient size, and/or use of iterative reconstruction technique. FINDINGS: RIGHT CAROTID ARTERIES: Common Carotid Artery: Normal. Carotid Bifurcation: Normal. Internal Carotid Artery:Normal. External Carotid Artery (proximal branches): Normal. LEFT CAROTID ARTERIES: Common Carotid Artery: Normal. Carotid Bifurcation: Normal. Internal Carotid Artery:Normal. External Carotid Artery (proximal branches): Normal. VERTEBRAL ARTERIES: Right Vertebral Artery: Normal. Left Vertebral Artery: Normal. OTHER FINDINGS: None. IMPRESSION: No evidence of stenosis CT Angiography of the Brain. HISTORY: code stroke alert COMPARISON: None available. TECHNIQUE: CT angiography of the intracranial arteries was performed. Coronal and sagittal maximum intensity projection reformated images were generated. This CT exam was performed using one or more of the following dose reduction techniques: Automated exposure control, adjustment of the mA and/or kV according to patient size, and/or use of iterative reconstruction technique. FINDINGS: INTERNAL CEREBRAL ARTERIES: Unremarkable. The skull base, petrous, cavernous and supraclinoid segments are bilaterally widely patent. ANTERIOR CEREBRAL ARTERIES: Unremarkable. A1 and A2 segments are widely patent. Smaller distal branches unremarkable, as visualized. MIDDLE CEREBRAL ARTERIES: Unremarkable. M1 and M2 segments are widely patent. Perisylvian branches grossly symmetric. POSTERIOR CIRCULATION: Basilar Artery: Unremarkable. Distal Vertebral Arteries: Unremarkable. Posterior Cerebral Arteries: Unremarkable. Posterior Inferior Cerebellar Arteries: Unremarkable. ANEURYSM/ VASCULAR MALFORMATIONS: None. OTHER FINDINGS: None. IMPRESSION: Unremarkable CT Angiography of the Brain.
--- NOTE | 2018-03-16 19:03 | C.PDOC ---
History Of Present Illness 57 year old female, whose PMHx includes Lupus, HTN, and morbid obesity, presents to the ED with left-sided facial droop and left-sided numbness. Patient reports she went to bed at 0200 and woke up at 1400 today. No further history is available at this time. Time Seen by Provider: 03/16/18 17:45 Chief Complaint (Nursing): Weakness/Neurological Deficit History Per: Patient History/Exam Limitations: no limitations Onset/Duration Of Symptoms: Hrs Current Symptoms Are (Timing): Still Present Additional History Per: Patient - Symptoms Of CVA Character Of Deficits: Left: Weakness Past Medical History Reviewed: Historical Data, Nursing Documentation, Vital Signs Vital Signs: Last Vital Signs Temp 99.4 F 03/17/18 15:00 Pulse 83 03/17/18 15:00 Resp 20 03/17/18 15:00 BP 131/72 03/17/18 15:00 Pulse Ox 99 03/17/18 20:26 - Medical History PMH: Anemia, Anxiety, Arthritis, Asthma, Cardia Arrhythmia, CHF, COPD, Depression, Emphysema, HTN, Osteoporosis, Rheumatoid Arthritis, Schizophrenia, Sleep Apnea Denies: Chronic Kidney Disease Surgical History: Cholecystectomy, Tonsillectomy, - [facility] Procedures NASAL LACERATION SUTURE (11/07/13) NON-INVASIVE MECHANICAL VENTILATION (07/19/14) TETANUS TOXOID ADMINIST (11/07/13) Family History: States: [place] (Mother) - Social History Hx Tobacco Use: No Hx Alcohol Use: Yes Hx Substance Use: No - Immunization History Hx Tetanus Toxoid Vaccination: No Hx Influenza Vaccination: No Hx Pneumococcal Vaccination: Yes Review Of Systems Neurological: Positive for: Weakness (left-sided ), Other (left-sided facial droop ) ED Course And Treatment - Laboratory Results Result Diagrams: 03/17/18 05:42 03/17/18 05:42 ECG: Interpreted By Me, Viewed By Me ECG Rhythm: Sinus Rhythm Interpretation Of ECG: Normal Sinus Rhythm at rate 70bpm. Nonspecific ST/T wave changes. No interval changes from previous. Rate From EC O2 Sat by Pulse Oximetry: 99 (on RA) Pulse Ox Interpretation: Normal NIHSS Stroke Scale 2 - How Severe is the Stroke Level of Consciousness: 0=Alert LOC to Questions: 0=Both comments correct LOC to commands: 0=Obeys both correctly Best Gaze: 0=Normal Visual: 0=No visual loss Facial: 3=Complete unilateral paralysis Motor Arm - Left: 1=Drift noted before 10 sec Motor Arm - Right: 0=No drift Motor Leg - Left: 0=No drift Motor Leg - Right: 0=No drift Limb Ataxia: 0=Absent Sensory: 0=Normal Best Language: 0=No aphasia Dysarthia: 1=Mild to moderate slurring Extinction & Inattention (Neglect): 0=Normal, no object Score: 5 rTPA Inclusion/Exclusion - Refusal of Treatment Patient Refused Treatment: No - Inclusion Criteria for Altepase Patient is 18 years or Older: Yes The Clinical Diagnosis of Ischemic Stroke That is Causing a Potentially Disabling Neurological Deficit: No Time of Onset is Well Established to be Less Than 270 Minute Before Treatment Would Begin: No Risk/Benefit Discussed With Patient/Family Member Present: Yes Medical Decision Making Medical Decision Making: high clinical suspicion for bells, but pt reports left sided weakness, mild drift on exam. not tpa candidate >13 hour onset as per dr ervin, requests mri in am. Progress: Bloodwork, CXR, CTA Head, CT Head, EKG ordered and reviewed. Aspirin PO administered. Disposition - Disposition Disposition: HOSPITALIZED Disposition Time: 08:00 Condition: STABLE - Clinical Impression Clinical Impression: Martin's palsy, Weakness of limb - Scribe Statement The provider has reviewed the documentation as recorded by the Scribe (Vickie Sesay) Provider Attestation: All medical record entries made by the Scribe were at my direction and personally dictated by me. I have reviewed the chart and agree that the record accurately reflects my personal performance of the history, physical exam, medical decision making, and the department course for this patient. I have also personally directed, reviewed, and agree with the discharge instructions and disposition. Decision To Admit - Pt Status Changed To: Hospital Disposition Of: Observation - . Bed Request Type: Telemetry Admitting Physician: Minesh Andino Patient Diagnosis: Martin's palsy, Weakness of limb
--- NOTE | 2018-03-16 20:24 | CP.PCM.HP ---
Addendum entered and electronically signed by Mag MouraDO 03/16/18 21:52: NIH stroke scale=5 points (+unilateral upper and lower facial paralysis, mild- mod loss of sensation, mild-mod dysarthria with slurring but can be understood) Addendum entered and electronically signed by Mag MouraDO 03/16/18 21:48: Per Dr. Gonzalez, will wait for MRI before start pt on Valtrex and steroid therapy for possible [place] Palsy. Original Note: <Mag Moura - Last Filed: 03/16/18 21:36> History of Present Illness - History of Present Illness History of Present Illness: 57 year old female with past medical history of CHF, HTN, COPD, TEJA, lupus, RA, CAD presented to hospital for facial droop. Patient states that she woke up from her nap at 2 pm and about an hour later she noticed the right side of her face was weak and drooping and she had slurred speech. Patient also noticed the left side of her body was numb. Patient states since yesterday, she had a severe right sided SO. SO is similar to her previous migraines. Denies any radiation of pain. SO is associated with photophobia. Denies having any N/V, F /C, neck pain or stiffness. Denies having any vision changes, hearing changes, gait changes, urinary incontinence or dysuria, rash on body or face. Patient was ambulating without difficulty but has been weak for a few days due to a "lupus flare up". Patient was brought in by ambulance. Code stroke was called. CT of head and CTA of head were negative in the ED and neurologist was called. Currently patient continues to c/o right sided facial droop and speech changes. She also has persistent left sided numbness in her UE and face. PMD: [employer] Insurance Manager: Desmond [employer] Supervisor: Dr. Choi Jeep Mechanic: Otilio Merrill PMH: rheumatoid arthritis, lupus, R leg chronic DVT (diagnosed 9 years ago; was initially on Coumadin and then taken off once IVC filter was placed [address] Tavera), CHF, COPD/asthma, sleep apnea (not currently using CPAP because machine broke), HTN, depression PSH: IVC filter (placed by Dr. Tavera 8 years ago), left chest portacath for IV medication (because patient states that she does not have "easy veins"), tonsillectomy, , cholecystectomy Medications: Ventolin 3x/day, nebulizer machine MWF, Digoxin 125mg once daily, Folic Acid 1mg once daily, Plaquenil 200mg twice daily, Methotrexate 2.5mg 6 tablets every Tuesday, Oyster shell calcium-Vit D twice daily, Omeprazole 20mg once daily when needed, Duloxetin Hcl 60mg once daily, Xanax 1mg three times daily, Acetaminophen-Codeine 4mg four times daily or as needed for pain. Current Pharmacy: [facility] ([facility]) Allergies: Hydromorphone Hcl (reports anaphylaxis), Meperidine Hcl (reports anaphylaxis) Family History: Father-cirrhosis; Mother-CAD Social history: lives in [place] with 2 daughters and 1 granddaughter; unemployed on disability; uses cane to ambulate; smokes 2-3 cigarettes per day since age 20; drinks 9oz of wine every Tuesday, Tuesday, Tuesday; no current use of recreational drugs; history of marijuana/cocaine use with last use 8 years ago Present on Admission - Present on Admission Any Indicators Present on Admission: Yes History of DVT/PE: Yes Review of Systems - Constitutional Constitutional: absent: Chills, Fever - EENT Eyes: absent: Blurred Vision, Change in Vision, Irritation Nose/Mouth/Throat: absent: Nasal Congestion, Sore Throat - Cardiovascular Cardiovascular: Pedal Edema. absent: Chest Pain, Dyspnea, Dyspnea on Exertion, Edema, Irregular Heart Rhythm, Leg Edema, Lightheadedness - Respiratory Respiratory: absent: Cough, Dyspnea, Wheezing, Chest Congestion - Gastrointestinal Gastrointestinal: absent: Abdominal Pain, Constipation, Diarrhea, Nausea, Vomiting - Genitourinary Genitourinary: absent: Dysuria, Urinary Incontinence, Urinary Frequency - Musculoskeletal Musculoskeletal: absent: Back Pain, Joint Swelling, Neck Pain, Numbness - Integumentary Integumentary: absent: Acne, Lesions, Rash, Wounds - Neurological Neurological: Abnormal Speech, Numbness, Headaches, Sensory Deficit, Weakness. absent: Abnormal Gait, Dizziness, Frequent Falls - Psychiatric Psychiatric: absent: Anxiety, Depression Past Patient History - Infectious Disease Hx of Infectious Diseases: None - Past Medical History & Family History Past Medical History?: Yes - Past Social History Smoking Status: Light Smoker < 10 Cigarettes Daily Chewing Tobacco Use: No Cigar Use: No Alcohol: Occasional Drugs: Denies Home Situation {Lives}: With Family - CARDIAC Hx Cardia Arrhythmia: Yes Hx Congestive Heart Failure: Yes Hx Hypertension: Yes - PULMONARY Hx Asthma: Yes Hx Chronic Obstructive Pulmonary Disease (COPD): Yes Hx Emphysema: Yes Hx Sleep Apnea: Yes - NEUROLOGICAL Hx Neurological Disorder: No - HEENT Hx HEENT Problems: No - RENAL Hx Chronic Kidney Disease: No - ENDOCRINE/METABOLIC Hx Systemic Lupus Erythematosus: Yes Other/Comment: 'A LITTLE BIT OF DIABETES" - HEMATOLOGICAL/ONCOLOGICAL Hx Anemia: Yes - INTEGUMENTARY Hx Dermatological Problems: No - MUSCULOSKELETAL/RHEUMATOLOGICAL Hx Arthritis: Yes Hx Osteoporosis: Yes Hx Rheumatoid Arthritis: Yes - GASTROINTESTINAL Hx Gastrointestinal Disorders: No - GENITOURINARY/GYNECOLOGICAL Hx Genitourinary Disorders: No - PSYCHIATRIC Hx Anxiety: Yes Hx Depression: Yes Hx Schizophrenia: Yes Hx Substance Use: No - SURGICAL HISTORY Hx Cholecystectomy: Yes Hx Tonsillectomy: Yes - ANESTHESIA Hx Anesthesia: Yes Hx Anesthesia Reactions: No Hx Malignant Hyperthermia: No Meds Allergies/Adverse Reactions: Allergies Allergy/AdvReac Type Severity Reaction Status Date / Time hydromorphone HCl Allergy Severe ANAPHYLAXIS Verified 03/16/18 17:41 [From Dilaudid] meperidine HCl [From Demerol] Allergy Severe ANAPHYLAXIS Verified 03/16/18 17:41 Physical Exam - Constitutional Appears: Non-toxic, No Acute Distress - Head Exam Head Exam: ATRAUMATIC - Eye Exam Eye Exam: EOMI, PERRL. absent: Conjunctival injection, Nystagmus, Periorbital swelling Pupil Exam: NORMAL ACCOMODATION, PERRL - ENT Exam ENT Exam: Mucous Membranes Moist - Respiratory Exam Respiratory Exam: Clear to Auscultation Bilateral, NORMAL BREATHING PATTERN. absent: Accessory Muscle Use, Rales, Rhonchi, Wheezes, Respiratory Distress - Cardiovascular Exam Cardiovascular Exam: REGULAR RHYTHM, +S1, +S2. absent: Diastolic murmur, Gallop , Rubs, Systolic Murmur - GI/Abdominal Exam GI & Abdominal Exam: Normal Bowel Sounds, Soft. absent: Distended, Firm, Guarding, Rigid, Tenderness - Extremities Exam Extremities exam: Negative for: pedal edema, tenderness - Neurological Exam Neurological exam: Alert, Oriented x3, Reflexes Normal Additional comments: right sided upper and lower face weakness. decreased facial sensation on left side. Decreased sensation on left UE. equal sensation in B/L LE. 4/5 strength in B/L UE and LE. normal cerebellar function. A&Ox 3 Results - Vital Signs Recent Vital Signs: Last Vital Signs Temp 97.4 F L 03/16/18 17:41 Pulse 68 03/16/18 18:49 Resp 20 03/16/18 18:49 BP 159/73 H 03/16/18 18:49 Pulse Ox 99 03/16/18 19:09 - Labs Result Diagrams: 03/16/18 17:53 03/16/18 17:53 Labs: Laboratory Results - last 24 hr 03/16/18 03/16/18 03/16/18 17:53 17:53 17:53 WBC 12.1 H RBC 4.61 Hgb 12.3 Hct 37.0 MCV 80.3 L MCH 26.7 L MCHC 33.3 RDW 16.4 H Plt Count 336 MPV 7.7 Neut % (Auto) 68.2 Lymph % (Auto) 22.6 Harnett % (Auto) 6.1 Eos % (Auto) 2.2 Baso % (Auto) 0.9 Neut # (Auto) 8.3 H Lymph # (Auto) 2.7 Harnett # (Auto) 0.7 Eos # (Auto) 0.3 Baso # (Auto) 0.1 PT 12.2 INR 1.1 APTT 26 Sodium 145 Potassium 3.5 L Chloride 103 Carbon Dioxide 32 H Anion Gap 14 BUN 11 Creatinine 0.7 Est GFR ( Amer) > 60 Est GFR (Non-Af Amer) > 60 Random Glucose 126 H Hemoglobin A1c Calcium 9.6 Total Bilirubin 0.7 AST 27 ALT 33 Alkaline Phosphatase 85 Troponin I < 0.0120 Total Protein 7.2 Albumin 3.7 Globulin 3.5 Albumin/Globulin Ratio 1.1 Triglycerides 162 H D Cholesterol 161 LDL Cholesterol Direct 109 HDL Cholesterol 38 Blood Type Antibody Screen 03/16/18 03/16/18 17:53 17:57 WBC RBC Hgb Hct MCV MCH MCHC RDW Plt Count MPV Neut % (Auto) Lymph % (Auto) Harnett % (Auto) Eos % (Auto) Baso % (Auto) Neut # (Auto) Lymph # (Auto) Harnett # (Auto) Eos # (Auto) Baso # (Auto) PT INR APTT Sodium Potassium Chloride Carbon Dioxide Anion Gap BUN Creatinine Est GFR ( Amer) Est GFR (Non-Af Amer) Random Glucose Hemoglobin A1c 6.2 Calcium Total Bilirubin AST ALT Alkaline Phosphatase Troponin I Total Protein Albumin Globulin Albumin/Globulin Ratio Triglycerides Cholesterol LDL Cholesterol Direct HDL Cholesterol Blood Type A POSITIVE Antibody Screen Negative Assessment & Plan - Assessment and Plan (Free Text) Assessment: 57 year old female with past medical history of rheumatoid arthritis, lupus, R leg chronic DVT (diagnosed 9 years ago; was initially on Coumadin and then taken off once IVC filter was placed [address] Tavera), CHF, COPD/ asthma, sleep apnea (not currently using CPAP because machine broke), HTN, depression is admitted to hospital for CVA vs. martin's palsy. CTA and CT of head on admission were negative. CVA vs. Martin's palsy - Neurologist, Dr. Gonzalez was consulted. He recommended admitting pt and getting MRI and MRA of head and neck. Per Dr. Gonzalez, no indication for anticoagulation as pt does not have evidence of cardiac thrombus on presentation. - MRI/MRA of head and neck ordered. Pt has IVC filter in place. - Pt received aspirin 325 in ed. Will continue aspirin 81 mg po qd and plavix 75 mg po qd - pt failed swallow eval in ED. Will get official swallow eval - PT/OT - ASCVD risk 7.8% with 1.9% 10 yr cardiovascular risk. Will start pt on Crestor 10 mg po qd -will start treatment for bells palsy. Solumedrol 125 mg IVP. Will continue prednisone 60 mg po qd for 6 days and then taper of 10 days. Valtrex 500 mg po BID x 5 days CHF - Will continue home medication digoxin 0.125 mg po qd - EKg showed t wave inversion in leads V3-V5 which have been present on previous EKGs. Initial troponins are negative. - will check serial trops and EKGs HTN - Currently normotensive. Will continue to monitor RA - Will continue home medication palquenil 200 mg po qd, folic acid 1 mg po qd Lupus - Will continue home medications listed above Anxiety - Continue home medications: duloxetine and xanax Hx of DVT - IVC filter in place Prophylaxis - Protonix 20 mg po qd - Lovenox sc - SCDs Case discussed with attending, Dr. Andino - Date & Time Date: 05/10/18 Time: 21:25 <Minesh Andino - Last Filed: 03/17/18 06:16> Results - Vital Signs Recent Vital Signs: Last Vital Signs Temp 98.1 F 03/17/18 04:23 Pulse 71 03/17/18 04:23 Resp 20 03/17/18 04:23 BP 156/84 H 03/17/18 04:23 Pulse Ox 95 03/17/18 04:23 - Labs Result Diagrams: 03/17/18 05:42 03/16/18 17:53 Labs: Laboratory Results - last 24 hr 03/16/18 03/16/18 03/16/18 17:53 17:53 17:53 WBC 12.1 H RBC 4.61 Hgb 12.3 Hct 37.0 MCV 80.3 L MCH 26.7 L MCHC 33.3 RDW 16.4 H Plt Count 336 MPV 7.7 Neut % (Auto) 68.2 Lymph % (Auto) 22.6 Harnett % (Auto) 6.1 Eos % (Auto) 2.2 Baso % (Auto) 0.9 Neut # (Auto) 8.3 H Lymph # (Auto) 2.7 Harnett # (Auto) 0.7 Eos # (Auto) 0.3 Baso # (Auto) 0.1 PT 12.2 INR 1.1 APTT 26 Sodium 145 Potassium 3.5 L Chloride 103 Carbon Dioxide 32 H Anion Gap 14 BUN 11 Creatinine 0.7 Est GFR ( Amer) > 60 Est GFR (Non-Af Amer) > 60 Random Glucose 126 H Hemoglobin A1c Calcium 9.6 Total Bilirubin 0.7 AST 27 ALT 33 Alkaline Phosphatase 85 Total Creatine Kinase CK-MB (Mass) Troponin I < 0.0120 Total Protein 7.2 Albumin 3.7 Globulin 3.5 Albumin/Globulin Ratio 1.1 Triglycerides 162 H D Cholesterol 161 LDL Cholesterol Direct 109 HDL Cholesterol 38 Blood Type Antibody Screen 03/16/18 03/16/18 03/17/18 17:53 17:57 00:30 WBC RBC Hgb Hct MCV MCH MCHC RDW Plt Count MPV Neut % (Auto) Lymph % (Auto) Harnett % (Auto) Eos % (Auto) Baso % (Auto) Neut # (Auto) Lymph # (Auto) Harnett # (Auto) Eos # (Auto) Baso # (Auto) PT INR APTT Sodium Potassium Chloride Carbon Dioxide Anion Gap BUN Creatinine Est GFR ( Amer) Est GFR (Non-Af Amer) Random Glucose Hemoglobin A1c 6.2 Calcium Total Bilirubin AST ALT Alkaline Phosphatase Total Creatine Kinase 52 CK-MB (Mass) 0.35 Troponin I < 0.0120 Total Protein Albumin Globulin Albumin/Globulin Ratio Triglycerides Cholesterol LDL Cholesterol Direct HDL Cholesterol Blood Type A POSITIVE Antibody Screen Negative 03/17/18 05:42 WBC 13.0 H RBC 4.49 Hgb 12.1 Hct 36.1 MCV 80.4 L MCH 27.1 MCHC 33.7 RDW 16.6 H Plt Count 330 MPV 7.7 Neut % (Auto) 67.3 Lymph % (Auto) 24.7 Harnett % (Auto) 5.4 Eos % (Auto) 1.8 Baso % (Auto) 0.8 Neut # (Auto) 8.8 H Lymph # (Auto) 3.2 Harnett # (Auto) 0.7 Eos # (Auto) 0.2 Baso # (Auto) 0.1 PT INR APTT Sodium Potassium Chloride Carbon Dioxide Anion Gap BUN Creatinine Est GFR ( Amer) Est GFR (Non-Af Amer) Random Glucose Hemoglobin A1c Calcium Total Bilirubin AST ALT Alkaline Phosphatase Total Creatine Kinase CK-MB (Mass) Troponin I Total Protein Albumin Globulin Albumin/Globulin Ratio Triglycerides Cholesterol LDL Cholesterol Direct HDL Cholesterol Blood Type Antibody Screen Assessment & Plan - Date & Time Date: 03/17/18 (I have seen and examined the patient. I agree with the findings and plan of care as documented by Dr. Moura. Patient with CVA/TIA. CT negative. Neuro consulted. MRI brain in AM. ROMIx3 with EKG. Aspirin and Statin. Continue home meds for history of CHF. Monitor for acute changes.) Time: 06:14 Attending/Attestation - Attestation I have personally seen and examined this patient.: Yes I have fully participated in the care of the patient.: Yes I have reviewed all pertinent clinical information: Yes
[2018-03-17 01:03] LABS: CK-MB 0.35 ng/mL (0.0-3.38)
[2018-03-17 05:55] LABS: BASO # 0.1 K/uL (0.0-0.2); BASO % 0.8 % (0.0-2.0); EOS # 0.2 K/uL (0.0-0.7); EOS % 1.8 % (0.0-4.0); HEMOGLOBIN 12.1 g/dL (11.0-16.0); LYMPH # 3.2 K/uL (1.0-4.3); LYMPH % 24.7 % (20.0-40.0); MEAN CELL VOLUME 80.4 fL (81.0-99.0); MEAN CORPUSCULAR HEMOGLOBIN 27.1 pg (27.0-31.0); MEAN CORPUSCULAR HGB CONC 33.7 g/dL (33.0-37.0); MEAN PLATELET VOLUME 7.7 fL (7.2-11.7); MONO # 0.7 K/uL (0.0-0.8); MONO % 5.4 % (0.0-10.0); NEUT # 8.8 K/uL (1.8-7.0); NEUT % 67.3 % (50.0-75.0); NRBC % 0.1 % (0.0-2.0); RBC 4.49 Mil/uL (3.80-5.20); RED CELL DISTRIBUTION WIDTH 16.6 % (11.5-14.5)
[2018-03-17 06:18] LABS: ALBUMIN 3.7 g/dL (3.5-5.0); ALT/SGPT 20 U/L (9-52); AST/SGOT 29 U/L (14-36); BLOOD UREA NITROGEN 9 mg/dL (7-17); GFR AFRICAN-AMERICAN > 60; GFR NON-AFRICAN AMERICAN > 60
--- NOTE | 2018-03-17 07:52 | RAD ---
Chest x-ray single frontal view History: Code stroke. Comparison: 12/31/2017 Findings: Left central venous catheter tip extending to the cavoatrial junction. Moderate venous congestion. Right hilar prominence. Elevated right hemidiaphragm. Question trace bilateral pleural effusions. Heart size within normal limits. Impression: Left central venous catheter tip extending to the cavoatrial junction. Moderate venous congestion. Right hilar prominence. Elevated right hemidiaphragm. Question trace bilateral pleural effusions.
[2018-03-17] MEDS ORDERED: Valproate 500 MG in Sodium Chloride 0.9% 100 ML IVPB ONE (09:00)
[2018-03-17] MEDS: Pantoprazole 20 mg EC Tab PO SCH (09:09)
[2018-03-17] MEDS: Magnesium Sulfate 1 gm in D5W 1 GM/100 ML BAG IVPB SCH ×5 (09:10→10:30)
[2018-03-17] MEDS: Enoxaparin 40 mg Syringe SC SCH (09:45)
[2018-03-17] MEDS ORDERED: Potassium Chloride 20 mEq ER Tab PO SCH (10:00)
--- NOTE | 2018-03-17 11:57 | PCM.PSYCH ---
Initial Psychiatric Evaluation - Initial Psychiatric Evaluation Type of Admission: Voluntary Legal Status: Capacity Current Medications: Active Medications Generic Name Dose Route Start Last Admin Trade Name Freq PRN Reason Stop Dose Admin Alprazolam 1 mg 03/16/18 21:16 03/17/18 08:08 Xanax PO 1 mg TID PRN Administration Anxiety Aspirin 81 mg 03/17/18 10:00 03/17/18 09:11 Aspirin Chewable PO 81 mg DAILY TC Administration Clopidogrel Bisulfate 75 mg 03/17/18 10:00 03/17/18 09:09 Plavix PO 75 mg DAILY TC Administration Digoxin 0.125 mg 03/17/18 18:00 Digoxin PO DAILY@1800 [facility] Duloxetine HCl 60 mg 03/17/18 10:00 03/17/18 09:10 Cymbalta PO 60 mg DAILY TC Administration Enoxaparin Sodium 40 mg 03/17/18 10:00 03/17/18 09:45 Lovenox SC 40 mg DAILY TC Administration Folic Acid 1 mg 03/17/18 10:00 03/17/18 09:11 Folic Acid PO 1 mg DAILY TC Administration Hydroxychloroquine Sulfate 200 mg 03/17/18 10:00 03/17/18 09:15 Plaquenil PO 200 mg DAILY [facility] Administration Protocol Pantoprazole Sodium 20 mg 03/17/18 10:00 03/17/18 09:09 Protonix Ec Tab PO 20 mg DAILY TC Administration Rosuvastatin Calcium 10 mg 03/16/18 22:00 03/16/18 22:08 Crestor PO 10 mg HS TC Administration Past Psychiatric History - Past Psychiatric History Pertinent Medical Hx (Current Medical&Sleep Prob, Allergies): Allergies Allergy/AdvReac Type Severity Reaction Status Date / Time hydromorphone HCl Allergy Severe ANAPHYLAXIS Verified 03/16/18 17:41 [From Dilaudid] meperidine HCl [From Demerol] Allergy Severe ANAPHYLAXIS Verified 03/16/18 17:41 Albuterol HFA [Ventolin HFA 90 mcg/actuation (8 g)] 2 puff IH Q6H PRN 02/10/16 Alprazolam 0.25 mg PO TID 02/10/16 DULoxetine [Cymbalta] 60 mg PO DAILY 02/10/16 Folic Acid 1 mg PO DAILY 02/10/16 Hydroxychloroquine Sulfate [Plaquenil] 200 mg PO BID 02/10/16 Methotrexate 6 tab PO QWK 02/10/16 Albuterol Sulfate [Proair Hfa] 1 puff PO DAILY 01/04/17 Digoxin 0.125 mg PO DAILY@1800 #7 tab 01/07/17 Calcium Carbonate [Oscal] 500 mg PO BID tab 01/02/18 Fluticasone/Salmeterol 250/50 [Advair Diskus] 1 puff IH Q12 #1 puff 01/02/18 Naproxen [Naprosyn] 1 tab PO BID PRN #25 tab 02/27/18
--- NOTE | 2018-03-17 11:59 | CT ---
PROCEDURE: CT HEAD WITHOUT CONTRAST. HISTORY: left sided weakness COMPARISON: 03/16/2018 TECHNIQUE: Axial computed tomography images were obtained through the head/brain without intravenous contrast. Radiation dose: Total exam DLP = 840.35 mGy-cm. This CT exam was performed using one or more of the following dose reduction techniques: Automated exposure control, adjustment of the mA and/or kV according to patient size, and/or use of iterative reconstruction technique. FINDINGS: HEMORRHAGE: No intracranial hemorrhage. BRAIN: No mass effect or edema. Moderate patchy and confluent deep and subcortical white matter lucency with mild periventricular white matter lucency, consistent with chronic microvascular ischemic change. Probable bilateral dilated perivascular spaces beneath the basal ganglia. No evidence of acute infarct. VENTRICLES: Unremarkable. No hydrocephalus. CALVARIUM: Unremarkable. PARANASAL SINUSES: Unremarkable as visualized. No significant inflammatory changes. MASTOID AIR CELLS: Unremarkable as visualized. No inflammatory changes. OTHER FINDINGS: None. IMPRESSION: No intracranial mass, hemorrhage or evidence of acute infarct. Chronic white matter ischemic change. No change from 03/16/2018.
[2018-03-17] MEDS ORDERED: Dexamethasone 4 mg/1 ml IV STA (17:14)
--- NOTE | 2018-03-17 17:24 | CP.PCM.PN ---
Subjective - Date & Time of Evaluation Date of Evaluation: 03/17/18 Time of Evaluation: 07:00 - Subjective Subjective: PGY-1 Medicine Note Patient seen and examined at bedside. Patient still having facial droop on the right side and says she has decreased sensation on the left arm and leg compared to the right. Patient says she does not want to go home with this facial droop and will kill herself if she has to. Patient says she has a history of bipolar depression and anxiety. Patient said she had a suicide attempt once in the past where she took too many pain pills. Patient denies any headache, dizziness, shortness of breath, chest pain, abdominal pain, nausea, vomiting, constipation, or diarrhea. Objective - Vital Signs/Intake and Output Vital Signs (last 24 hours): Temp Pulse Resp BP Pulse Ox 97.7 F 79 18 168/76 H 98 03/17/18 07:15 03/17/18 07:15 03/17/18 07:15 03/17/18 07:15 03/17/18 07:15 Intake and Output: 03/17/18 03/17/18 06:59 18:59 Intake Total 110 Balance 110 - Medications Medications: Current Medications Alprazolam (Xanax) 1 mg PO TID PRN PRN Reason: Anxiety Last Admin: 03/17/18 14:53 Dose: 1 mg Aspirin (Aspirin Chewable) 81 mg PO DAILY [facility] Last Admin: 03/17/18 09:11 Dose: 81 mg Clopidogrel Bisulfate (Plavix) 75 mg PO DAILY [facility] Last Admin: 03/17/18 09:09 Dose: 75 mg Dexamethasone (Decadron Inj) 8 mg IV STAT STA Stop: 03/17/18 17:15 Digoxin (Digoxin) 0.125 mg PO DAILY@1800 [facility] Duloxetine HCl (Cymbalta) 60 mg PO DAILY [facility] Last Admin: 03/17/18 09:10 Dose: 60 mg Enoxaparin Sodium (Lovenox) 40 mg SC DAILY [facility] Last Admin: 03/17/18 09:45 Dose: 40 mg Folic Acid (Folic Acid) 1 mg PO DAILY [facility] Last Admin: 03/17/18 09:11 Dose: 1 mg Hydroxychloroquine Sulfate (Plaquenil) 200 mg PO DAILY [facility] PRN Reason: Protocol Last Admin: 03/17/18 09:15 Dose: 200 mg Pantoprazole Sodium (Protonix Ec Tab) 20 mg PO DAILY [facility] Last Admin: 03/17/18 09:09 Dose: 20 mg Prednisone (Prednisone Tab) 60 mg PO DAILY [facility] Stop: 03/22/18 17:16 Rosuvastatin Calcium (Crestor) 10 mg PO HS [facility] Last Admin: 03/16/18 22:08 Dose: 10 mg - Labs Labs: 03/17/18 05:42 03/17/18 05:42 PT 12.2 SECONDS (9.7-12.2) 03/16/18 17:53 INR 1.1 03/16/18 17:53 APTT 26 SECONDS (21-34) 03/16/18 17:53 - Constitutional Appears: Non-toxic, No Acute Distress - Head Exam Head Exam: ATRAUMATIC, NORMAL INSPECTION, NORMOCEPHALIC Additional comments: right facial droop - Eye Exam Eye Exam: EOMI, Normal appearance - ENT Exam ENT Exam: Mucous Membranes Moist - Neck Exam Neck Exam: Full ROM - Respiratory Exam Respiratory Exam: Clear to Ausculation Bilateral, NORMAL BREATHING PATTERN. absent: Rales, Rhonchi, Wheezes, Respiratory Distress, Stridor - Cardiovascular Exam Cardiovascular Exam: REGULAR RHYTHM, RRR, +S1, +S2 - GI/Abdominal Exam GI & Abdominal Exam: Soft, Normal Bowel Sounds. absent: Tenderness - Extremities Exam Extremities Exam: Normal Inspection. absent: Pedal Edema, Tenderness - Back Exam Back Exam: NORMAL INSPECTION - Neurological Exam Neurological Exam: Alert, Awake, Oriented x3. absent: CN II-XII Intact (can't shrug eyebrow on right, can't wrinkle forehead on right, can't smile on right ) Neuro motor strength exam: Left Upper Extremity: 4, Right Upper Extremity: 5, Left Lower Extremity: 5, Right Lower Extremity: 5 - Psychiatric Exam Psychiatric exam: Depressed, Suicidal Ideation - Skin Skin Exam: Intact, Normal Color, Warm Assessment and Plan - Assessment and Plan (Free Text) Assessment: Martin's palsy - Neurologist, Dr. Gonzalez was consulted. Per Dr. Gonzalez, no indication for anticoagulation as pt does not have evidence of cardiac thrombus on presentation. - MRI/MRA contraindicated because of chest port - Head Ct: no acute intracranial abnormalities - Repeat CT: no intracranial mass, hemorrhage or evidence of acute infarct. Chronic white matter ischemic change. No change from 03/16/18 - CTA: unremarkable - Pt received aspirin 325 in ed. Will continue aspirin 81 mg po qd and plavix 75 mg po qd - pt failed swallow eval in ED. Will get official swallow eval - PT/OT - ASCVD risk 7.8% with 1.9% 10 yr cardiovascular risk. Will start pt on Crestor 10 mg po qd meds: -Solumedrol 125 mg IVP. -continue prednisone 60 mg po qd for 6 days and then taper of 10 days. Valtrex 500 mg po BID x [address] Coleman, psych, consulted 1:1 for suicidal ideations CHF - Will continue home medication digoxin 0.125 mg po qd - Ekg showed t wave inversion in leads V3-V5 which have been present on previous EKGs. Initial troponins are negative. - serial troponins negative HTN -continue to monitor RA - Will continue home medication palquenil 200 mg po qd, folic acid 1 mg po qd Lupus - Will continue home medications listed above Anxiety - Continue home medications: duloxetine and xanax Hx of DVT - IVC filter in place Prophylaxis - Protonix 20 mg po qd - Lovenox sc - SCDs
[2018-03-17] MEDS: Digoxin 125 mcg (0.125 mg) Tab PO SCH (17:37)
--- NOTE | 2018-03-17 17:55 | CP.PCM.CON ---
History of Present Illness - History of Present Illness History of Present Illness: Mrs. Lee is a 57-year-old woman with a past medical history of CHF, HTN, COPD, TEJA, lupus, RA, CAD presented to hospital for right facial droop. On exam, she could not close her right eye or wrinkle the forehead. Review of Systems - Review of Systems All systems: reviewed and no additional remarkable complaints except Past Patient History - Infectious Disease Hx of Infectious Diseases: None - Past Medical History & Family History Past Medical History?: Yes - Past Social History Smoking Status: Light Smoker < 10 Cigarettes Daily Chewing Tobacco Use: No Cigar Use: No Alcohol: Occasional Drugs: Denies Home Situation {Lives}: With Family - CARDIAC Hx Congestive Heart Failure: Yes Hx Hypertension: Yes - PULMONARY Hx Chronic Obstructive Pulmonary Disease (COPD): Yes - NEUROLOGICAL Hx Neurological Disorder: No - HEENT Hx HEENT Problems: No - RENAL Hx Chronic Kidney Disease: No - ENDOCRINE/METABOLIC Hx Systemic Lupus Erythematosus: Yes Other/Comment: 'A LITTLE BIT OF DIABETES" - HEMATOLOGICAL/ONCOLOGICAL Hx Anemia: Yes - INTEGUMENTARY Hx Dermatological Problems: No - MUSCULOSKELETAL/RHEUMATOLOGICAL Hx Rheumatoid Arthritis: Yes - GASTROINTESTINAL Hx Gastrointestinal Disorders: No - GENITOURINARY/GYNECOLOGICAL Hx Genitourinary Disorders: No - PSYCHIATRIC Hx Anxiety: Yes Hx Depression: Yes Hx Schizophrenia: Yes Hx Substance Use: No - SURGICAL HISTORY Hx Cholecystectomy: Yes Hx Tonsillectomy: Yes - ANESTHESIA Hx Anesthesia: Yes Hx Anesthesia Reactions: No Hx Malignant Hyperthermia: No Meds Allergies/Adverse Reactions: Allergies Allergy/AdvReac Type Severity Reaction Status Date / Time hydromorphone HCl Allergy Severe ANAPHYLAXIS Verified 03/16/18 17:41 [From Dilaudid] meperidine HCl [From Demerol] Allergy Severe ANAPHYLAXIS Verified 03/16/18 17:41 - Medications Medications: Current Medications Alprazolam (Xanax) 1 mg PO TID PRN PRN Reason: Anxiety Last Admin: 03/17/18 14:53 Dose: 1 mg Aspirin (Aspirin Chewable) 81 mg PO DAILY [facility] Last Admin: 03/17/18 09:11 Dose: 81 mg Clopidogrel Bisulfate (Plavix) 75 mg PO DAILY [facility] Last Admin: 03/17/18 09:09 Dose: 75 mg Digoxin (Digoxin) 0.125 mg PO DAILY@1800 [facility] Duloxetine HCl (Cymbalta) 60 mg PO DAILY [facility] Last Admin: 03/17/18 09:10 Dose: 60 mg Enoxaparin Sodium (Lovenox) 40 mg SC DAILY [facility] Last Admin: 03/17/18 09:45 Dose: 40 mg Folic Acid (Folic Acid) 1 mg PO DAILY [facility] Last Admin: 03/17/18 09:11 Dose: 1 mg Hydroxychloroquine Sulfate (Plaquenil) 200 mg PO DAILY [facility] PRN Reason: Protocol Last Admin: 03/17/18 09:15 Dose: 200 mg Pantoprazole Sodium (Protonix Ec Tab) 20 mg PO DAILY [facility] Last Admin: 03/17/18 09:09 Dose: 20 mg Prednisone (Prednisone Tab) 60 mg PO DAILY [facility] Stop: 03/22/18 17:16 Rosuvastatin Calcium (Crestor) 10 mg PO HS [facility] Last Admin: 03/16/18 22:08 Dose: 10 mg Valacyclovir HCl (Valtrex) 1,000 mg PO TID [facility] PRN Reason: Protocol Physical Exam - Neurological Exam Neurological exam: Alert, Normal Gait, Oriented x3, Reflexes Normal Additional comments: 7th nerve palsy on the right side otherwise normal neuro exam. Results - Vital Signs Recent Vital Signs: Last Vital Signs Temp 97.7 F 03/17/18 07:15 Pulse 79 03/17/18 07:15 Resp 18 03/17/18 07:15 BP 168/76 H 03/17/18 07:15 Pulse Ox 98 03/17/18 07:15 - Labs Result Diagrams: 03/17/18 05:42 03/17/18 05:42 Labs: Laboratory Results - last 24 hr 03/16/18 03/16/18 03/16/18 17:41 17:53 17:53 WBC 12.1 H RBC 4.61 Hgb 12.3 Hct 37.0 MCV 80.3 L MCH 26.7 L MCHC 33.3 RDW 16.4 H Plt Count 336 MPV 7.7 Neut % (Auto) 68.2 Lymph % (Auto) 22.6 Walsh % (Auto) 6.1 Eos % (Auto) 2.2 Baso % (Auto) 0.9 Neut # (Auto) 8.3 H Lymph # (Auto) 2.7 Walsh # (Auto) 0.7 Eos # (Auto) 0.3 Baso # (Auto) 0.1 PT 12.2 INR 1.1 APTT 26 Sodium Potassium Chloride Carbon Dioxide Anion Gap BUN Creatinine Est GFR ( Amer) Est GFR (Non-Af Amer) POC Glucose (mg/dL) 130 H Random Glucose Hemoglobin A1c Calcium Total Bilirubin AST ALT Alkaline Phosphatase Total Creatine Kinase CK-MB (Mass) Troponin I Total Protein Albumin Globulin Albumin/Globulin Ratio Triglycerides Cholesterol LDL Cholesterol Direct HDL Cholesterol Blood Type Antibody Screen 03/16/18 03/16/18 03/16/18 17:53 17:53 17:57 WBC RBC Hgb Hct MCV MCH MCHC RDW Plt Count MPV Neut % (Auto) Lymph % (Auto) Walsh % (Auto) Eos % (Auto) Baso % (Auto) Neut # (Auto) Lymph # (Auto) Walsh # (Auto) Eos # (Auto) Baso # (Auto) PT INR APTT Sodium 145 Potassium 3.5 L Chloride 103 Carbon Dioxide 32 H Anion Gap 14 BUN 11 Creatinine 0.7 Est GFR ( Amer) > 60 Est GFR (Non-Af Amer) > 60 POC Glucose (mg/dL) Random Glucose 126 H Hemoglobin A1c 6.2 Calcium 9.6 Total Bilirubin 0.7 AST 27 ALT 33 Alkaline Phosphatase 85 Total Creatine Kinase CK-MB (Mass) Troponin I < 0.0120 Total Protein 7.2 Albumin 3.7 Globulin 3.5 Albumin/Globulin Ratio 1.1 Triglycerides 162 H D Cholesterol 161 LDL Cholesterol Direct 109 HDL Cholesterol 38 Blood Type A POSITIVE Antibody Screen Negative 03/17/18 03/17/18 03/17/18 00:30 05:42 05:42 WBC 13.0 H RBC 4.49 Hgb 12.1 Hct 36.1 MCV 80.4 L MCH 27.1 MCHC 33.7 RDW 16.6 H Plt Count 330 MPV 7.7 Neut % (Auto) 67.3 Lymph % (Auto) 24.7 Walsh % (Auto) 5.4 Eos % (Auto) 1.8 Baso % (Auto) 0.8 Neut # (Auto) 8.8 H Lymph # (Auto) 3.2 Walsh # (Auto) 0.7 Eos # (Auto) 0.2 Baso # (Auto) 0.1 PT INR APTT Sodium 148 Potassium 3.9 Chloride 102 Carbon Dioxide 35 H Anion Gap 15 BUN 9 Creatinine 0.7 Est GFR ( Amer) > 60 Est GFR (Non-Af Amer) > 60 POC Glucose (mg/dL) Random Glucose 116 H Hemoglobin A1c Calcium 9.0 Total Bilirubin 0.5 AST 29 ALT 20 Alkaline Phosphatase 83 Total Creatine Kinase 52 CK-MB (Mass) 0.35 Troponin I < 0.0120 < 0.0120 Total Protein 7.2 Albumin 3.7 Globulin 3.6 Albumin/Globulin Ratio 1.0 Triglycerides Cholesterol LDL Cholesterol Direct HDL Cholesterol Blood Type Antibody Screen 03/17/18 03/17/18 06:52 11:05 WBC RBC Hgb Hct MCV MCH MCHC RDW Plt Count MPV Neut % (Auto) Lymph % (Auto) Walsh % (Auto) Eos % (Auto) Baso % (Auto) Neut # (Auto) Lymph # (Auto) Walsh # (Auto) Eos # (Auto) Baso # (Auto) PT INR APTT Sodium Potassium Chloride Carbon Dioxide Anion Gap BUN Creatinine Est GFR ( Amer) Est GFR (Non-Af Amer) POC Glucose (mg/dL) 117 H 167 H Random Glucose Hemoglobin A1c Calcium Total Bilirubin AST ALT Alkaline Phosphatase Total Creatine Kinase CK-MB (Mass) Troponin I Total Protein Albumin Globulin Albumin/Globulin Ratio Triglycerides Cholesterol LDL Cholesterol Direct HDL Cholesterol Blood Type Antibody Screen Assessment & Plan (1) Martin's palsy Assessment and Plan: Will start Prednisone 60 mg daily for 5 days, then taper over the subsequent 5 days. Will start Valtrex 1000 mg TID for 5 days. Treat headache with Tylenol and gave Magnesium Sulfate 2 grams, will give another dose. Will give decadron 10 mg and Depakote 500 mg IV as well. Follow up with primary care. Thank you for this consultation. Status: Acute Priority: High
--- NOTE | 2018-03-17 19:28 | CARD ---
APPROVED REPORT EKG Measurement Heart [id number] <Conclusion> Normal sinus rhythm T wave abnormality, consider anterolateral ischemia Abnormal ECG
--- NOTE | 2018-03-17 19:29 | CARD ---
APPROVED REPORT EKG Measurement Heart [id number] <Conclusion> Normal sinus rhythm ST & T wave abnormality, consider anterolateral ischemia Abnormal ECG
[2018-03-18 06:55] LABS: BASO % 0.2 % (0.0-2.0); HEMOGLOBIN 11.6 g/dL (11.0-16.0); LYMPH # 1.1 K/uL (1.0-4.3); LYMPH % 6.7 % (20.0-40.0); MEAN CELL VOLUME 81.2 fL (81.0-99.0); MEAN CORPUSCULAR HEMOGLOBIN 26.6 pg (27.0-31.0); MEAN CORPUSCULAR HGB CONC 32.8 g/dL (33.0-37.0); MEAN PLATELET VOLUME 7.7 fL (7.2-11.7); MONO # 0.4 K/uL (0.0-0.8); MONO % 2.5 % (0.0-10.0); NEUT # 14.6 K/uL (1.8-7.0); NEUT % 90.6 % (50.0-75.0); NRBC % 0.1 % (0.0-2.0); PLATELET COUNT 354 K/uL (130-400); RBC 4.34 Mil/uL (3.80-5.20); RED CELL DISTRIBUTION WIDTH 16.2 % (11.5-14.5); WHITE BLOOD COUNT 16.1 K/uL (4.8-10.8)
[2018-03-18 07:12] LABS: ALBUMIN 3.5 g/dL (3.5-5.0); ALT/SGPT 28 U/L (9-52); AST/SGOT 21 U/L (14-36); BLOOD UREA NITROGEN 15 mg/dL (7-17); CALCIUM 9.1 mg/dl (8.6-10.4); GFR AFRICAN-AMERICAN > 60; GFR NON-AFRICAN AMERICAN > 60
[2018-03-18 08:06] VITALS: RESP 18
[2018-03-18 09:12] LABS: BANDS 4 % (0-2); TOTAL CELLS COUNTED 100
[2018-03-18 09:13] LABS: ANISOCYTOSIS SLIGHT; LYMPHOCYTE 8 % (20-40); MONOCYTE 3 % (0-10); NEUTROPHIL 85 % (50-75); PLATELET ESTIMATE NORMAL (NORMAL)
[2018-03-18 09:14] LABS: OVALOCYTES SLIGHT
[2018-03-18] MEDS: Pantoprazole 20 mg EC Tab PO SCH (09:48)
[2018-03-18] MEDS: Enoxaparin 40 mg Syringe SC SCH (09:48)
--- NOTE | 2018-03-18 10:01 | CARD ---
APPROVED REPORT EXAM: Two-dimensional and M-mode echocardiogram with Doppler and color Doppler. Other Information Quality : AverageRhythm : INDICATION CVA/TIA Congestive Heart Failure COPD RISK FACTORS Hypertension Diabetes 2D DIMENSIONS IVSd1.2 (0.7-1.1cm)LVDd5.5 (3.9-5.9cm) PWd1.4 (0.7-1.1cm)LVDs4.6 (2.5-4.0cm) FS (%) 16.9 %LVEF (%)55.0 (>50%) M-Mode DIMENSIONS Left Atrium (MM)4.36 (2.5-4.0cm)Aortic Root3.32 (2.2-3.7cm) Aortic Cusp Exc.2.21 (1.5-2.0cm) Aortic Valve AI P 1/2 [id number] Mitral Valve MV E Lbydyysu66.9cm/sMV A Lgzdoabl03.4cm/sE/A ratio0.8 TDI E/Lateral E'0.0E/Medial E'0.0 LEFT VENTRICLE There is mild concentric left ventricular hypertrophy. Left ventricle systolic functionsystolic function is normal. The Ejection Fraction is 55-60%. There is normal LV segmental wall motion. The left ventricular diastolic function is abnormal. Transmitral Doppler flow pattern is Grade I-abnormal relaxation pattern. No left ventricle thrombus noted on this study. RIGHT VENTRICLE The right ventricle is normal size. The right ventricular systolic function is normal. ATRIA The left atrium size is normal. The right atrium size is normal. AORTIC VALVE The aortic valve is mildly sclerotic. The aortic valve is trileaflet. There is trace aortic regurgitation. There is no aortic valvular stenosis. There is no aortic valvular vegetation. MITRAL VALVE Mitral annular calcification is mild. There is no evidence of mitral valve prolapse. There is no mitral valve stenosis. Mitral regurgitation is trace to mild. PULMONIC VALVE The pulmonary valve is normal in structure. There is no pulmonic valvular regurgitation. GREAT VESSELS The aortic root is normal in size. The IVC is normal in size and collapses >50% with inspiration. PERICARDIAL EFFUSION There is no pericardial effusion. There is no pleural effusion. <Conclusion> There is mild concentric left ventricular hypertrophy. Left ventricle systolic functionsystolic function is normal. The Ejection Fraction is 55-60%. The left ventricular diastolic function is normal. The left ventricular diastolic function is abnormal. The right ventricle is normal size. The right ventricular systolic function is normal. The left atrium size is normal. The right atrium size is normal. There is trace aortic regurgitation. Mitral regurgitation is trace to mild.
--- NOTE | 2018-03-18 10:37 | CP.PCM.PN ---
Subjective - Date & Time of Evaluation Date of Evaluation: 03/18/18 Time of Evaluation: 10:35 - Subjective Subjective: Progress note. Attending: Dr. Anna Pt seen and examined at bedside. No acute distress. pt is still complaining of pain. pt has chronic pain issues. pt also reports having "high sugar" in the past and being treated with oral hypoglycemic, cannot remember names of meds. No fevers, chills, vomiting, diarrhea. Objective - Vital Signs/Intake and Output Vital Signs (last 24 hours): Temp Pulse Resp BP Pulse Ox 98.1 F 84 18 133/70 100 03/18/18 07:00 03/18/18 07:00 03/18/18 07:00 03/18/18 07:00 03/18/18 07:00 Intake and Output: 03/18/18 03/18/18 06:59 18:59 Intake Total 30 Balance 30 - Medications Medications: Current Medications Acetaminophen (Tylenol 325mg Tab) 650 mg PO Q6 PRN PRN Reason: Headache Last Admin: 03/18/18 03:58 Dose: 650 mg Alprazolam (Xanax) 1 mg PO TID PRN PRN Reason: Anxiety Last Admin: 03/18/18 10:02 Dose: 1 mg Aspirin (Aspirin Chewable) 81 mg PO DAILY [facility] Last Admin: 03/18/18 09:47 Dose: 81 mg Clopidogrel Bisulfate (Plavix) 75 mg PO DAILY [facility] Last Admin: 03/18/18 09:46 Dose: 75 mg Digoxin (Digoxin) 0.125 mg PO DAILY@1800 [facility] Last Admin: 03/17/18 17:37 Dose: 0.125 mg Duloxetine HCl (Cymbalta) 60 mg PO DAILY [facility] Last Admin: 03/18/18 09:47 Dose: 60 mg Enoxaparin Sodium (Lovenox) 40 mg SC DAILY [facility] Last Admin: 03/18/18 09:48 Dose: 40 mg Folic Acid (Folic Acid) 1 mg PO DAILY [facility] Last Admin: 03/18/18 09:46 Dose: 1 mg Hydroxychloroquine Sulfate (Plaquenil) 200 mg PO DAILY [facility] PRN Reason: Protocol Last Admin: 03/18/18 09:47 Dose: 200 mg Insulin Human Regular (Novolin R) 0 unit [facility] PRN Reason: Protocol Pantoprazole Sodium (Protonix Ec Tab) 20 mg PO DAILY [facility] Last Admin: 03/18/18 09:48 Dose: 20 mg Prednisone (Prednisone Tab) 60 mg PO DAILY [facility] Stop: 03/22/18 17:16 Last Admin: 03/18/18 09:47 Dose: 60 mg Rosuvastatin Calcium (Crestor) 10 mg PO HS [facility] Last Admin: 03/17/18 21:58 Dose: 10 mg Valacyclovir HCl (Valtrex) 1,000 mg PO TID [facility] PRN Reason: Protocol Last Admin: 03/17/18 22:23 Dose: 1,000 mg - Labs Labs: 03/18/18 06:45 03/18/18 06:45 PT 12.2 SECONDS (9.7-12.2) 03/16/18 17:53 INR 1.1 03/16/18 17:53 APTT 26 SECONDS (21-34) 03/16/18 17:53 - Constitutional Appears: No Acute Distress - Head Exam Head Exam: ATRAUMATIC, NORMAL INSPECTION, NORMOCEPHALIC - Eye Exam Eye Exam: EOMI - ENT Exam ENT Exam: Mucous Membranes Moist - Neck Exam Neck Exam: Normal Inspection - Respiratory Exam Respiratory Exam: NORMAL BREATHING PATTERN. absent: Respiratory Distress - Cardiovascular Exam Cardiovascular Exam: +S1, +S2 - GI/Abdominal Exam GI & Abdominal Exam: Soft, Normal Bowel Sounds. absent: Tenderness - Extremities Exam Extremities Exam: Full ROM, Normal Inspection - Neurological Exam Neurological Exam: Alert, Awake Additional comments: can't smile right, cant wrinkle forehead, cant raise eyebrow right - Psychiatric Exam Psychiatric exam: Depressed, Suicidal Ideation - Skin Skin Exam: Dry, Intact, Normal Color, Warm Assessment and Plan - Assessment and Plan (Free Text) Assessment: This is a 57 yo female with Martin's palsy -neuro consult. Dr. Gonzalez. recs appreciated. -prednisone 60 mg daily -continue prednisone taper -continue valtrex TID Suicidal ideation -psych consult. Dr. Coleman. recs appreciated -1:1 monitoring for now -will talk to patient about transfer to psych unit Hx of Depression -continue duloxetine 60 mg daily -psych consult. recs appreciated. CHF -continue digoxin. HTN -continue to monitor RA - tylenol for pain Lupus - continue plaquenil daily -continue folic acid Anxiety - Continue home medications: duloxetine and xanax Hx of DVT - IVC filter in place Prophylaxis - Protonix 20 mg po qd - Lovenox sc - SCDs
--- NOTE | 2018-03-18 10:58 | PCM.PYCHPN ---
Psychiatric Progress Note - Psychiatric Progress Note Patient seen today, length of contact: 22 min Patient Chief Complaint: "I'm depressed" Problems Identified/Issues Discussed: The pt is seen, chart reviewed, case discussed with staff. Support and psychoeducation given No new symptoms reported, improving slowly and needs more time No SEs from medications, risks discussed. After care discussed She is future-oriented and not suicidal She says thatif she feels suicidal, she can "always come to upstairs" by which she meant the "psych floor" She mostly complained of migraines and body pain [employer] spoke to the attending and discussed her MSE and pain situation 1:1 /dc'ed Medication Change: Yes (add trazodone) Medical Record Reviewed: Yes Mental Status Examination - Cognitive Function Orientation: Person, Place, Situation, Time Memory: Intact Attention: Poor Concentration: Poor Association: WNL Fund of Knowledge: Poor - Mood Mood: Depressed, Anxious - Affect Affect: Constricted - Speech Speech: Appropriate - Formal Thought Process Formal Thought Process: No Impairment - Suicidal Ideation Suicidal Ideation: No - Homicidal Ideation Homicidal Ideation: No Goal/Treatment Plan - Goal/Treatment Plan Need for Continued Stay: Other (medical) Progress Toward Problem(s) and Goals/Treatment Plan: Continue medications, add traz. for insomnia Risks of meds discussed Support and psychoeducation daily Attend groups and activities daily After care planning by JAVI Mcmanus will sign off Cleared for d/c
--- NOTE | 2018-03-18 11:14 | CP.PCM.DIS ---
Provider - Provider Date of Admission: 03/16/18 19:20 Attending physician: Wily Anna MD Consults: -Psych- Ozden -Neurology- José Luisya Time Spent in preparation of Discharge (in minutes): 45 Hospital Course - Lab Results Lab Results: Most Recent Lab Values WBC 16.1 K/uL (4.8-10.8) H 03/18/18 06:45 RBC 4.34 Mil/uL (3.80-5.20) 03/18/18 06:45 Hgb 11.6 g/dL (11.0-16.0) 03/18/18 06:45 Hct 35.3 % (34.0-47.0) 03/18/18 06:45 MCV 81.2 fL (81.0-99.0) 03/18/18 06:45 MCH 26.6 pg (27.0-31.0) L 03/18/18 06:45 MCHC 32.8 g/dL (33.0-37.0) L 03/18/18 06:45 RDW 16.2 % (11.5-14.5) H 03/18/18 06:45 Plt Count 354 K/uL (130-400) 03/18/18 06:45 MPV 7.7 fL (7.2-11.7) 03/18/18 06:45 Neut % (Auto) 90.6 % (50.0-75.0) H 03/18/18 06:45 Lymph % (Auto) 6.7 % (20.0-40.0) L 03/18/18 06:45 Mills % (Auto) 2.5 % (0.0-10.0) 03/18/18 06:45 Eos % (Auto) 0.0 % (0.0-4.0) 03/18/18 06:45 Baso % (Auto) 0.2 % (0.0-2.0) 03/18/18 06:45 Neut # (Auto) 14.6 K/uL (1.8-7.0) H 03/18/18 06:45 Lymph # (Auto) 1.1 K/uL (1.0-4.3) 03/18/18 06:45 Mills # (Auto) 0.4 K/uL (0.0-0.8) 03/18/18 06:45 Eos # (Auto) 0.0 K/uL (0.0-0.7) 03/18/18 06:45 Baso # (Auto) 0.0 K/uL (0.0-0.2) 03/18/18 06:45 Neutrophils % (Manual) 85 % (50-75) H 03/18/18 06:45 Band Neutrophils % 4 % (0-2) H 03/18/18 06:45 Lymphocytes % (Manual) 8 % (20-40) L 03/18/18 06:45 Monocytes % (Manual) 3 % (0-10) 03/18/18 06:45 Platelet Estimate Normal (NORMAL) 03/18/18 06:45 Anisocytosis (manual) Slight 03/18/18 06:45 Ovalocytes Slight 03/18/18 06:45 PT 12.2 SECONDS (9.7-12.2) 03/16/18 17:53 INR 1.1 03/16/18 17:53 APTT 26 SECONDS (21-34) 03/16/18 17:53 Sodium 143 mmol/L (132-148) 03/18/18 06:45 Potassium 4.7 mmol/L (3.6-5.2) 03/18/18 06:45 Chloride 102 mmol/L (98-107) 03/18/18 06:45 Carbon Dioxide 30 mmol/L (22-30) 03/18/18 06:45 Anion Gap 15 (10-20) 03/18/18 06:45 BUN 15 mg/dL (7-17) 03/18/18 06:45 Creatinine 0.8 mg/dL (0.7-1.2) 03/18/18 06:45 Est GFR ( Amer) > 60 03/18/18 06:45 Est GFR (Non-Af Amer) > 60 03/18/18 06:45 POC Glucose (mg/dL) 229 mg/dL (65-110) H 03/18/18 06:17 Random Glucose 256 mg/dL (65-105) H 03/18/18 06:45 Hemoglobin A1c 6.2 % (4.2-6.5) 03/16/18 17:53 Calcium 9.1 mg/dl (8.6-10.4) 03/18/18 06:45 Total Bilirubin 0.7 mg/dL (0.2-1.3) 03/18/18 06:45 AST 21 U/L (14-36) 03/18/18 06:45 ALT 28 U/L (9-52) 03/18/18 06:45 Alkaline Phosphatase 73 U/L (38-126) 03/18/18 06:45 Total Creatine Kinase 52 U/L (30-135) 03/17/18 00:30 CK-MB (Mass) 0.35 ng/mL (0.0-3.38) 03/17/18 00:30 Troponin I < 0.0120 ng/mL (0.00-0.120) 03/17/18 05:42 Total Protein 7.1 g/dL (6.3-8.3) 03/18/18 06:45 Albumin 3.5 g/dL (3.5-5.0) 03/18/18 06:45 Globulin 3.6 gm/dL (2.2-3.9) 03/18/18 06:45 Albumin/Globulin Ratio 1.0 (1.0-2.1) 03/18/18 06:45 Triglycerides 162 mg/dL (0-149) H D 03/16/18 17:53 Cholesterol 161 mg/dL (0-199) 03/16/18 17:53 LDL Cholesterol Direct 109 mg/dL (0-129) 03/16/18 17:53 HDL Cholesterol 38 mg/dL (30-70) 03/16/18 17:53 Blood Type A POSITIVE 03/16/18 17:57 Antibody Screen Negative 03/16/18 17:57 - Hospital Course Hospital Course: Attending: Dr. Anna Consults -Psych-Ozevan -Neuro-Lisa Stable for discharge No complications Procedures: None Discharge diagnoses : 1. Martin's palsy 2. Depression 3. Anxiety 4. Diabetes 5. Chronic pain HPI: see h/p Labs: see lab data section Hospital course This is a 57 yo female with Martin's palsy -neuro consult. Dr. Gonzalez. recs appreciated. -prednisone 60 mg daily -continue prednisone taper -continue valtrex TID Suicidal ideation -psych consult. Dr. Coleman. recs appreciated -1:1 monitoring for now -will talk to patient about transfer to psych unit Hx of Depression -continue duloxetine 60 mg daily -psych consult. recs appreciated. CHF -continue digoxin. HTN -continue to monitor RA - tylenol for pain Lupus - continue plaquenil daily -continue folic acid Anxiety - Continue home medications: duloxetine and xanax Hx of DVT - IVC filter in place Prophylaxis - Protonix 20 mg po qd - Lovenox sc - SCDs Discharge rx 1. prednisone 60 daily for 5 days, followed by 50 x 1 day, 40 x 1 day, 30 x 1 day, 20 x 1 day, 10 x 1 day 2. valtrex 3. tylenol number 3 prn x 4 days 4. plaquenil 5. folic acid 6. duloxetine 7. xanax 8. digoxin 9. ventolin 10. asa 11. plavix 12. advair Discharge instructions 1. Finish prednisone taper 2. Return if condition worsens 3. Follow up with neurology 4. follow up with psych 5. take all home medications - Date & Time of H&P Date of H&P: 03/16/18 Time of H&P: 20:14 Discharge Exam - Head Exam Head Exam: ATRAUMATIC, NORMAL INSPECTION, NORMOCEPHALIC - Eye Exam Eye Exam: EOMI - ENT Exam ENT Exam: Mucous Membranes Moist - Neck Exam Neck exam: Full Rom - Respiratory Exam Respiratory Exam: NORMAL BREATHING PATTERN, UNREMARKABLE - Cardiovascular Exam Cardiovascular Exam: +S1, +S2 - GI/Abdominal Exam GI & Abdominal Exam: Normal Bowel Sounds - Extremities Exam Extremities exam: full ROM, normal inspection - Neurological Exam Neurological exam: Alert, Oriented x3 Additional comments: cant wrinkle face on right, cant smile right, cant raise eyebrow right - Psychiatric Exam Psychiatric exam: Normal Affect, Normal Mood - Skin Skin Exam: Dry, Intact, Normal Color, Warm Discharge Plan - Follow Up Plan Condition: STABLE Disposition: HOME/ ROUTINE Patient education suggested?: Yes
[2018-03-18] MEDS: (Novolin R) Insulin Human Regular 100 units/ml vial SC SCH ×2 (12:25→16:22)
[2018-03-18 16:24] VITALS: BP 156/82; PULSE 87; TEMP 97.9; O2SAT 97
[2018-03-18 18:25] VITALS: PULSE 87
[2018-03-18] MEDS: Digoxin 125 mcg (0.125 mg) Tab PO SCH (18:25)
--- NOTE | 2018-03-19 12:36 | CARD ---
APPROVED REPORT EKG Measurement Heart [id number] <Conclusion> Normal sinus rhythm ST & T wave abnormality, consider anterolateral ischemia Abnormal ECG
[2018-03-20 11:42] LABS: ANA PATTERN HOMOGENOUS
== END 2018-03-18 19:10 | disposition home or self-care (01) ==
LOC: C.ER 17:39 → C.9E 19:20 → C.6T 20:10
PROVIDERS: ADMIT Internal Medicine; ATTEND Internal Medicine
DX: E11.9 Type 2 diabetes mellitus without complications (principal); F31.9 Bipolar disorder, unspecified; F41.9 Anxiety disorder, unspecified; G43.909 Migraine, unspecified, not intractable, without status migrainosus; G47.00 Insomnia, unspecified; G47.33 Obstructive sleep apnea (adult) (pediatric); G51.0 Bell's palsy; G89.29 Other chronic pain; I11.0 Hypertensive heart disease with heart failure; I25.10 Atherosclerotic heart disease of native coronary artery without angina pectoris; J43.9 Emphysema, unspecified; Z87.891 Personal history of nicotine dependence; I50.9 Heart failure, unspecified
CPT/HCPCS: 36415; 70450; 70496; 70498; 71045; 80053; 80061; 82948; 83036; 84484; 85025; 85610; 85730; 86038; 86617; 86850; 86900; 92610; 93005; 93306; 96361; 96365; 96368; 96372; 96375; 96376; 97116; 97162; 97166; 97530; 99285; G0378; G8978; G8979; G8987; G8988; G8996; G8997; G8998; J1100; J1642; J1650; J1885; J3475; J3480; Q9967

== ENCOUNTER 2018-04-11 15:15 | Emergency (ER) | payer MEDICAID ==
[2018-04-11 15:15] VITALS: PULSE 92; BMI 39.9
[2018-04-11 15:22] VITALS: RESP 18
--- NOTE | 2018-04-11 16:17 | C.PDOC ---
57 y/o female with history of Lupus, RA and [place] palsy presents to ED with complaints of generalized body pain, swelling to hands and legs. Patient reports she ran out of her medications. Patient reports she has an appointment with doctor on 04/21/18 but pain became worse today prompting visit. Denies numbness, weakness, fever, chills or any other complaints at this time. ( Sherine Fritz) History Per: Patient History/Exam Limitations: no limitations Onset/Duration Of Symptoms: Days Current Symptoms Are (Timing): Still Present <Sherine Fritz - Last Filed: 04/11/18 18:53> <Zana Morrow - Last Filed: 04/13/18 15:16> Time Seen by Provider: 04/11/18 15:34 Chief Complaint (Nursing): Lower Extremity Problem/Injury Past Medical History Reviewed: Historical Data, Nursing Documentation, Vital Signs - Medical History PMH: Anemia, Anxiety, Arthritis, Asthma, Cardia Arrhythmia, CHF, COPD, Depression, Emphysema, HTN, Osteoporosis, Rheumatoid Arthritis, Schizophrenia, Sleep Apnea Surgical History: Cholecystectomy, Tonsillectomy, Family History: States: [place] (Mother) - Social History Hx Tobacco Use: No Hx Alcohol Use: No Hx Substance Use: No - Immunization History Hx Tetanus Toxoid Vaccination: No Hx Influenza Vaccination: No Hx Pneumococcal Vaccination: Yes <Sherine Fritz - Last Filed: 04/11/18 18:53> Vital Signs: Last Vital Signs Temp 98.2 F 04/11/18 18:32 Pulse 79 04/11/18 18:32 Resp 18 04/11/18 18:32 BP 125/77 04/11/18 18:32 Pulse Ox 95 04/11/18 18:57 - [facility] Procedures NASAL LACERATION SUTURE (11/07/13) NON-INVASIVE MECHANICAL VENTILATION (07/19/14) TETANUS TOXOID ADMINIST (11/07/13) Review Of Systems Constitutional: Negative for: Fever, Chills Cardiovascular: Negative for: Chest Pain Respiratory: Negative for: Shortness of Breath Gastrointestinal: Negative for: Nausea, Vomiting Musculoskeletal: Positive for: Other (body pain) Skin: Negative for: Rash Neurological: Negative for: Weakness, Numbness <Sherine Fritz - Last Filed: 04/11/18 18:53> Physical Exam - Physical Exam Appears: Non-toxic, No Acute Distress Skin: Warm, Dry, No Rash Head: Normacephalic, Other (Left side facial palsy) Eye(s): bilateral: Normal Inspection Oral Mucosa: Moist Neck: Normal ROM, Supple Chest: Symmetrical, Other (Portacath on left chest wall) Cardiovascular: Rhythm Regular Respiratory: Normal Breath Sounds, No Rales, No Rhonchi, No Wheezing Gastrointestinal/Abdominal: Soft, No Tenderness, No Guarding, No Rebound Extremity: Normal ROM, Pedal Edema (trace), Other (boutonniere deformity to left index finger) Neurological/Psych: Oriented x3, Normal Speech Gait: Steady <Sherine Fritz - Last Filed: 04/11/18 18:53> ED Course And Treatment - Laboratory Results Result Diagrams: 04/11/18 16:48 04/11/18 16:48 Lab Interpretation: No Acute Changes O2 Sat by Pulse Oximetry: 95 (RA) Pulse Ox Interpretation: Normal <Sherine Fritz Last Filed: 04/11/18 18:53> - Laboratory Results Result Diagrams: 04/11/18 16:48 04/11/18 16:48 <Zana Morrow Last Filed: 04/13/18 15:16> Medical Decision Making <Sherine Fritz - Last Filed: 04/11/18 18:53> <Zana Morrow Filed: 04/13/18 15:16> Medical Decision Making: Impression: body pain, lupus flare Prior records reviewed, recently admitted for [place] Palsy and limb weakness 03/16 - 10/24 Plan: * Morphine * UA * Blood work Progress: Labs reviewed. No leukocytosis bands or electrolyte abnormality. Urine clear Patient reevaluated and resting comfortably on stretcher in no distress. She reports pain has improved. Vital signs stable. Patient feels comfortable going home and will be discharged. Patient given follow up instructions. Instructed to return to ER if symptoms worsen or new symptoms arise. (Sherine Fritz) Disposition Counseled Patient/Family Regarding: Diagnosis, Need For Followup - Disposition Disposition Time: 18:05 - POA Present On Arrival: None <Sherine Fritz Last Filed: 04/11/18 18:53> <Zana Morrow Filed: 04/13/18 15:16> - Disposition Referrals: Isaac Willis MD [Staff Provider] - Disposition: HOME/ ROUTINE Condition: IMPROVED Additional Instructions: Follow up with your primary medical doctor or clinic in 2-5 days for further evaluation. Take your usual medications as prescribed. Return to the emergency department at any time if symptoms persist or worsen. Instructions: Lupus (DC) Forms: [facility] ([place]) - Clinical Impression Clinical Impression: Martin's palsy, Chronic pain, SLE (systemic lupus erythematosus) - PA / AGRICULTURE MANAGER / Resident Statement MD/DO has reviewed & agrees with the documentation as recorded. - Scribe Statement The provider has reviewed the documentation as recorded by the Scribe <Sherine Fritz - Last Filed: 04/11/18 18:53> <Zana Morrow - Last Filed: 04/13/18 15:16> - Scribe Statement Zoila Lara All medical record entries made by the Scribe were at my direction and personally dictated by me. I have reviewed the chart and agree that the record accurately reflects my personal performance of the history, physical exam, medical decision making, and the department course for this patient. I have also personally directed, reviewed, and agree with the discharge instructions and disposition. (Sherine Fritz)
[2018-04-11] MEDS ORDERED: Morphine 4 MG/ML VIAL ONE (16:26)
[2018-04-11 16:55] LABS: BASO # 0.1 K/uL (0.0-0.2); BASO % 0.8 % (0.0-2.0); EOS # 0.1 K/uL (0.0-0.7); EOS % 1.6 % (0.0-4.0); HEMOGLOBIN 11.1 g/dL (11.0-16.0); LYMPH # 2.3 K/uL (1.0-4.3); LYMPH % 25.6 % (20.0-40.0); MEAN CORPUSCULAR HGB CONC 34.1 g/dL (33.0-37.0); MEAN PLATELET VOLUME 7.5 fL (7.2-11.7); MONO # 0.5 K/uL (0.0-0.8); MONO % 5.5 % (0.0-10.0); NEUT # 6.1 K/uL (1.8-7.0); NEUT % 66.5 % (50.0-75.0); RBC 3.97 Mil/uL (3.80-5.20); RED CELL DISTRIBUTION WIDTH 17.9 % (11.5-14.5); WHITE BLOOD COUNT 9.1 K/uL (4.8-10.8)
[2018-04-11 17:03] LABS: SQUAMOUS EPITHIAL 4 /hpf (0-5); URINE BACTERIA RARE (<OCC); URINE BILIRUBIN NEGATIVE (NEGATIVE); URINE BLOOD NEGATIVE (NEGATIVE); URINE CLARITY Clear (Clear); URINE COLOR Yellow (YELLOW); URINE GLUCOSE (UA) NORMAL (Normal); URINE LEUKOCYTE ESTERASE NEG Leu/uL (Negative); URINE PROTEIN NEGATIVE (NEGATIVE); URINE UROBILINOGEN NORMAL mg/dL (0.2-1.0)
[2018-04-11 17:15] LABS: ALB/GLOB RATIO 1.1 (1.0-2.1); ALBUMIN 3.4 g/dL (3.5-5.0); ALT/SGPT 52 U/L (9-52); AST/SGOT 45 U/L (14-36); BLOOD UREA NITROGEN 14 mg/dL (7-17); CALCIUM 8.4 mg/dl (8.6-10.4); GFR AFRICAN-AMERICAN > 60; GFR NON-AFRICAN AMERICAN > 60
[2018-04-11 17:16] LABS: B-TYPE NATRIURETIC PEPTIDE 196 pg/mL (0-900)
[2018-04-11 18:33] VITALS: BP 125/77; PULSE 79; TEMP 98.2
[2018-04-11 18:57] VITALS: O2SAT 95
== END 2018-04-11 18:32 | disposition home or self-care (01) ==
LOC: C.ER 15:15
DX: G51.0 Bell's palsy (principal); M32.9 Systemic lupus erythematosus, unspecified; G89.29 Other chronic pain; F20.9 Schizophrenia, unspecified; I50.9 Heart failure, unspecified; I10 Essential (primary) hypertension; M06.9 Rheumatoid arthritis, unspecified
CPT/HCPCS: 80053; 81001; 83880; 85025; 85651; 96374; 99284; J2270

== ENCOUNTER 2018-04-14 21:57 | Emergency (ER) | payer MEDICAID ==
[2018-04-14 21:57] VITALS: PULSE 92
[2018-04-14 22:01] VITALS: BMI 40.3
[2018-04-14 22:03] VITALS: PULSE 82; RESP 18; TEMP 98.6; O2SAT 98
[2018-04-14 22:42] LABS: BASO # 0.1 K/uL (0.0-0.2); BASO % 1.2 % (0.0-2.0); EOS # 0.2 K/uL (0.0-0.7); EOS % 2.1 % (0.0-4.0); HEMOGLOBIN 10.4 g/dL (11.0-16.0); LYMPH # 2.5 K/uL (1.0-4.3); LYMPH % 26.5 % (20.0-40.0); MEAN CELL VOLUME 82.8 fL (81.0-99.0); MEAN CORPUSCULAR HEMOGLOBIN 26.9 pg (27.0-31.0); MEAN CORPUSCULAR HGB CONC 32.5 g/dL (33.0-37.0); MEAN PLATELET VOLUME 7.4 fL (7.2-11.7); MONO # 0.4 K/uL (0.0-0.8); MONO % 4.6 % (0.0-10.0); NEUT # 6.1 K/uL (1.8-7.0); NEUT % 65.6 % (50.0-75.0); NRBC % 0.1 % (0.0-2.0); RBC 3.88 Mil/uL (3.80-5.20); RED CELL DISTRIBUTION WIDTH 18.3 % (11.5-14.5); WHITE BLOOD COUNT 9.3 K/uL (4.8-10.8)
[2018-04-14 23:03] LABS: ALB/GLOB RATIO 1.1 (1.0-2.1); ALBUMIN 3.5 g/dL (3.5-5.0); ALT/SGPT 21 U/L (9-52); AST/SGOT 26 U/L (14-36); BLOOD UREA NITROGEN 11 mg/dL (7-17); CALCIUM 8.6 mg/dl (8.6-10.4); GFR AFRICAN-AMERICAN > 60; GFR NON-AFRICAN AMERICAN > 60
--- NOTE | 2018-04-14 23:43 | C.PDOC ---
History Of Present Illness 57 year old female presents to the ED with c/o generalized, chronic body pain. Patient has prescriptions for multiple narcotic pain medications. Patient denies fever, chills, cough and chest pain. Time Seen by Provider: 04/14/18 22:50 Chief Complaint (Nursing): Chest Pain History Per: Patient History/Exam Limitations: no limitations Onset/Duration Of Symptoms: Days Current Symptoms Are (Timing): Still Present Quality: "Pain" Additional History Per: Patient Past Medical History Reviewed: Historical Data, Nursing Documentation, Vital Signs Vital Signs: Last Vital Signs Temp 98.6 F 04/14/18 22:00 Pulse 82 04/14/18 22:00 Resp 18 04/14/18 22:00 BP 119/61 04/15/18 01:03 Pulse Ox 98 04/15/18 00:29 - Medical History PMH: Anemia, Anxiety, Arthritis, Asthma, Cardia Arrhythmia, CHF, COPD, Depression, Emphysema, HTN, Osteoporosis, Rheumatoid Arthritis, Schizophrenia, Sleep Apnea Denies: Chronic Kidney Disease Surgical History: Cholecystectomy, Tonsillectomy, - [facility] Procedures NASAL LACERATION SUTURE (11/07/13) NON-INVASIVE MECHANICAL VENTILATION (07/19/14) TETANUS TOXOID ADMINIST (11/07/13) Family History: States: [place] (Mother) - Social History Hx Tobacco Use: No Hx Alcohol Use: No Hx Substance Use: No - Immunization History Hx Tetanus Toxoid Vaccination: No Hx Influenza Vaccination: No Hx Pneumococcal Vaccination: Yes Review Of Systems Constitutional: Negative for: Fever, Chills Cardiovascular: Negative for: Chest Pain Respiratory: Negative for: Cough Musculoskeletal: Positive for: Other (chronic, generalized body pain ) Physical Exam - Physical Exam Appears: Non-toxic, No Acute Distress Skin: Normal Color, Warm, Dry Head: Atraumatic, Normacephalic Eye(s): bilateral: Normal Inspection Oral Mucosa: Moist Neck: Supple Chest: Symmetrical, No Deformity, No Tenderness Cardiovascular: Rhythm Regular, No Murmur Respiratory: Normal Breath Sounds, No Rales, No Rhonchi, No Wheezing Gastrointestinal/Abdominal: Soft, No Tenderness, No Guarding, No Rebound Extremity: Normal ROM, Capillary Refill (less than 2 seconds ) Neurological/Psych: Oriented x3, Normal Speech, Normal Cognition ED Course And Treatment - Laboratory Results Result Diagrams: 04/14/18 22:32 04/14/18 22:32 O2 Sat by Pulse Oximetry: 98 (on RA) Pulse Ox Interpretation: Normal Medical Decision Making Medical Decision Making: Progress: Patient was initially approached by Dr. Lujan, but refused to be seen. Bloodwork, CXR, EKG ordered and reviewed. Morphine IVP administered. Disposition - Disposition Referrals: Isaac Willis MD [Staff Provider] - Disposition: HOME/ ROUTINE Disposition Time: 00:10 Condition: GOOD Additional Instructions: PEE SZYMANSKI, thank you for letting us take care of you today. Your provider was Otilio Washington DO and you were treated for PAIN FROM LUPUS. The emergency medical care you received today was directed at your acute symptoms. If you were prescribed any medication, please fill it and take as directed. It may take several days for your symptoms to resolve. Return to the Emergency Department if your symptoms worsen, do not improve, or if you have any other problems. Please contact your doctor or call one of the physicians/clinics you have been referred to that are listed on the Patient Visit Information form that is included in your discharge packet. Bring any paperwork you were given at discharge with you along with any medications you are taking to your follow up visit. Our treatment cannot replace ongoing medical care by a primary care provider outside of the emergency department. Thank you for allowing the [facility] team to be part of your care today. Follow up with your primary care doctor next week for re-evaluation and further management. Instructions: Chronic Pain (DC) Forms: [employer] ([place]) - Clinical Impression Clinical Impression: Chronic pain - Scribe Statement The provider has reviewed the documentation as recorded by the Scribe (Vickie Sesay) Provider Attestation: All medical record entries made by the Scribe were at my direction and personally dictated by me. I have reviewed the chart and agree that the record accurately reflects my personal performance of the history, physical exam, medical decision making, and the department course for this patient. I have also personally directed, reviewed, and agree with the discharge instructions and disposition.
[2018-04-15] MEDS ORDERED: Morphine 4 MG/ML VIAL IV STA (00:09)
[2018-04-15] MEDS ORDERED: Morphine 4 MG/ML VIAL ONE (00:16)
[2018-04-15 01:04] VITALS: BP 119/61
--- NOTE | 2018-04-15 14:48 | RAD ---
PROCEDURE: CHEST RADIOGRAPH, 1 VIEW HISTORY: L CP COMPARISON: Comparison is made with 03/16/2018 FINDINGS: LUNGS: No significant interval change noted since the previous exam PLEURA: No pneumothorax or pleural fluid seen. CARDIOVASCULAR: The cardiac silhouette is mildly enlarged. Left-sided [id number] is again seen in place. OSSEOUS STRUCTURES: No significant abnormalities. VISUALIZED UPPER ABDOMEN: Normal. OTHER FINDINGS: None. IMPRESSION: Suboptimal study due to portable technique and patient's body habitus. No significant interval change noted since the previous study.
== END 2018-04-15 01:03 | disposition home or self-care (01) ==
LOC: C.ER 21:57
DX: G89.29 Other chronic pain (principal); I11.0 Hypertensive heart disease with heart failure; I50.9 Heart failure, unspecified; D64.9 Anemia, unspecified; F17.210 Nicotine dependence, cigarettes, uncomplicated
CPT/HCPCS: 71045; 80053; 84484; 85025; 96374; 99284; J2270

== ENCOUNTER 2018-05-09 17:37 | Emergency (ER) | payer MEDICAID ==
[2018-05-09 17:37] VITALS: PULSE 92; BMI 47.8
[2018-05-09] MEDS ORDERED: Morphine 4 MG/ML VIAL IV STA (19:46)
--- NOTE | 2018-05-09 19:46 | C.PDOC ---
History Of Present Illness 57 year old female presents to the ER with a complaint of generalized body pain that began today. 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 Patient has a Hx of chronic pain and received percocet on 04/18/18 ; [place]ocet, xanax, and tylenol 4. Denies cough, nausea, vomiting, or diarrhea. Time Seen by Provider: 05/09/18 19:31 Chief Complaint (Nursing): Pain, Chronic History Per: Patient History/Exam Limitations: no limitations Onset/Duration Of Symptoms: Hrs Current Symptoms Are (Timing): Still Present Recent travel outside of the [place]: No Past Medical History Reviewed: Historical Data, Nursing Documentation, Vital Signs Vital Signs: Last Vital Signs Temp 99.6 F 05/09/18 17:58 Pulse 84 05/09/18 17:58 Resp 15 05/09/18 17:58 BP 123/75 05/09/18 17:58 Pulse Ox 96 05/09/18 22:44 - Medical History PMH: Anemia, Anxiety, Arthritis, Asthma, Cardia Arrhythmia, CHF, COPD, Depression, Emphysema, HTN, Osteoporosis, Rheumatoid Arthritis, Schizophrenia, Sleep Apnea Surgical History: Cholecystectomy, Tonsillectomy, - [facility] Procedures NASAL LACERATION SUTURE (11/07/13) NON-INVASIVE MECHANICAL VENTILATION (07/19/14) TETANUS TOXOID ADMINIST (11/07/13) Family History: States: [place] (Mother) - Social History Hx Tobacco Use: No Hx Alcohol Use: No Hx Substance Use: No - Immunization History Hx Tetanus Toxoid Vaccination: No Hx Influenza Vaccination: No Hx Pneumococcal Vaccination: Yes Review Of Systems Except As Marked, All Systems Reviewed And Found Negative. Respiratory: Negative for: Cough Gastrointestinal: Negative for: Nausea, Vomiting, Diarrhea Musculoskeletal: Positive for: Other (Generalized body aches) Physical Exam - Physical Exam Appears: Non-toxic Skin: Normal Color, Warm, Dry Head: Atraumatic, Normacephalic Eye(s): bilateral: Normal Inspection Oral Mucosa: Moist Neck: Normal, Supple Chest: Symmetrical, No Tenderness Cardiovascular: Rhythm Regular Respiratory: Normal Breath Sounds, No Rales, No Rhonchi, No Wheezing Gastrointestinal/Abdominal: Soft, No Tenderness Back: No CVA Tenderness, No Vertebral Tenderness, No Paraspinal Tenderness Extremity: Normal ROM (x4), Capillary Refill (<2 seconds) Pulses: Left Dorsalis Pedis: Normal, Right Dorsalis Pedis: Normal Neurological/Psych: Oriented x3, Normal Speech, Normal Motor, Normal Sensation Gait: Steady ED Course And Treatment - Laboratory Results Result Diagrams: 05/09/18 20:35 05/09/18 20:35 O2 Sat by Pulse Oximetry: 96 Medical Decision Making Medical Decision Making: Plan: * EKG * Blood work * CXR * Urinalysis * Morphine * Toradol chronic pain - patient states improvement. Will discharge home. Will start on sliding dose prednisone. Advised patient to follow up with pmd and pain management. cxr - interstitial congestion unchanged from previous. prelim. reading ekg - nsr rate at 83 bpm, nrm interavls, nrm axis, no non specific twave abn. Disposition Counseled Patient/Family Regarding: Studies Performed, Diagnosis, Need For Followup, Rx Given - Disposition Referrals: Isaac Willis MD [Staff Provider] - Disposition: HOME/ ROUTINE Disposition Time: 22:42 Condition: STABLE Additional Instructions: follow up with your doctor and pain management within 2 days call to make an appointment take medications as prescribed return to ER if symptoms worsens or progress Prescriptions: Naproxen [Naprosyn] 500 mg PO BID PRN #16 tab PRN Reason: Pain, Moderate (4-7) predniSONE [predniSONE Tab] 50 mg PO DAILY #4 tab Instructions: Chronic Pain (DC) Forms: [facility] ([place]), General Discharge Instructions - Clinical Impression Clinical Impression: Chronic pain - Scribe Statement The provider has reviewed the documentation as recorded by the Scribisai Macias All medical record entries made by the Scribe were at my direction and personally dictated by me. I have reviewed the chart and agree that the record accurately reflects my personal performance of the history, physical exam, medical decision making, and the department course for this patient. I have also personally directed, reviewed, and agree with the discharge instructions and disposition.
[2018-05-09] MEDS ORDERED: Morphine 4 MG/ML VIAL ONE (20:36)
[2018-05-09 20:42] LABS: BASO # 0.1 K/uL (0.0-0.2); BASO % 1.3 % (0.0-2.0); EOS # 0.2 K/uL (0.0-0.7); EOS % 2.1 % (0.0-4.0); HEMOGLOBIN 10.6 g/dL (11.0-16.0); LYMPH # 2.1 K/uL (1.0-4.3); LYMPH % 23.4 % (20.0-40.0); MEAN CELL VOLUME 81.5 fL (81.0-99.0); MEAN CORPUSCULAR HEMOGLOBIN 26.8 pg (27.0-31.0); MEAN CORPUSCULAR HGB CONC 32.9 g/dL (33.0-37.0); MEAN PLATELET VOLUME 7.7 fL (7.2-11.7); MONO # 0.5 K/uL (0.0-0.8); MONO % 5.7 % (0.0-10.0); NEUT % 67.5 % (50.0-75.0); NRBC % 0.2 % (0.0-2.0); RBC 3.96 Mil/uL (3.80-5.20); RED CELL DISTRIBUTION WIDTH 18.3 % (11.5-14.5); WHITE BLOOD COUNT 8.8 K/uL (4.8-10.8)
[2018-05-09 21:02] LABS: SQUAMOUS EPITHIAL 2 /hpf (0-5); URINE BACTERIA RARE (<OCC); URINE BILIRUBIN NEGATIVE (NEGATIVE); URINE BLOOD NEGATIVE (NEGATIVE); URINE CLARITY Clear (Clear); URINE COLOR Yellow (YELLOW); URINE GLUCOSE (UA) NORMAL (Normal); URINE LEUKOCYTE ESTERASE NEG Leu/uL (Negative); URINE PROTEIN 1+ mg/dL (NEGATIVE); URINE UROBILINOGEN NORMAL mg/dL (0.2-1.0)
[2018-05-09 21:03] LABS: ALB/GLOB RATIO 1.2 (1.0-2.1); ALBUMIN 3.8 g/dL (3.5-5.0); ALT/SGPT 33 U/L (9-52); AST/SGOT 25 U/L (14-36); BLOOD UREA NITROGEN 12 mg/dL (7-17); CALCIUM 8.9 mg/dl (8.6-10.4); GFR AFRICAN-AMERICAN > 60; GFR NON-AFRICAN AMERICAN > 60
[2018-05-09] MEDS ORDERED: MethylPREDNISolone 40 mg Vial IVP STA (21:33)
[2018-05-09] MEDS ORDERED: MethylPREDNISolone 40 mg Vial ONE (21:39)
[2018-05-09 22:57] VITALS: BP 128/70; PULSE 81; RESP 16; TEMP 99.2; O2SAT 94
--- NOTE | 2018-05-10 09:28 | RAD ---
HISTORY: SOB COMPARISON: Chest radiograph dated 04/14/2018. TECHNIQUE: Chest PA and lateral FINDINGS: LUNGS: No active pulmonary disease. PLEURA: No significant pleural effusion identified. No pneumothorax apparent. CARDIOVASCULAR: Normal. OSSEOUS STRUCTURES: Port unchanged. VISUALIZED UPPER ABDOMEN: Normal. OTHER FINDINGS: Left subclavian access chest port, unchanged. IMPRESSION: No active disease.
--- NOTE | 2018-05-11 20:58 | CARD ---
APPROVED REPORT EKG Measurement Heart [id number] <Conclusion> Normal sinus rhythm Nonspecific T wave abnormality Abnormal ECG
== END 2018-05-09 23:03 | disposition home or self-care (01) ==
LOC: C.ER 17:37
DX: G89.29 Other chronic pain (principal)
CPT/HCPCS: 71046; 80053; 81001; 82550; 83735; 84484; 85025; 85651; 93005; 96374; 96375; 99285; J1885; J2270; J2920

== ENCOUNTER 2018-08-14 21:32 | Emergency (ER) | payer MEDICAID ==
[2018-08-14 21:32] VITALS: PULSE 92; BMI 47.8
[2018-08-14] MEDS ORDERED: Albuterol-Ipratrop 3 mg / 0.5 (3 ml) UD ONE ×2 (21:41→22:43)
[2018-08-14 21:45] VITALS: TEMP 99.3; O2SAT 97
[2018-08-14] MEDS ORDERED: Albuterol-Ipratrop 3 mg / 0.5 (3 ml) UD IH STA (22:20)
--- NOTE | 2018-08-14 22:29 | C.PDOC ---
History Of Present Illness 14 y/o F c PMHx Lupus and asthma p/w Lupus flare and asthma exacerbation today. Patient states she has pain throughout her entire body which she states is typcial of her Lupus flare. Takes Tylenol #4 at home but ran out. Also states she feels dyspneic similar to previous asthma exacerbations. Denies fever, chills, vomiting, diarrhea, dysuria. Time Seen by Provider: 08/14/18 21:52 Chief Complaint (Nursing): Shortness Of Breath History Per: Patient History/Exam Limitations: no limitations Onset/Duration Of Symptoms: Hrs Current Symptoms Are (Timing): Still Present Past Medical History Reviewed: Historical Data, Nursing Documentation, Vital Signs Vital Signs: Last Vital Signs Temp 99.3 F 08/14/18 21:36 Pulse 93 H 08/14/18 21:36 Resp 24 08/14/18 21:48 BP 139/83 08/14/18 21:36 Pulse Ox 97 08/14/18 21:48 - Medical History PMH: Anemia, Anxiety, Arthritis, Asthma, Bipolar Disorder, Cardia Arrhythmia, CHF, COPD, Depression, Emphysema, HTN, Hypercholesterolemia, Osteoporosis, Rheumatoid Arthritis, Schizophrenia, Sleep Apnea Denies: Chronic Kidney Disease Surgical History: Cholecystectomy, Tonsillectomy, - [facility] Procedures NASAL LACERATION SUTURE (11/07/13) NON-INVASIVE MECHANICAL VENTILATION (07/19/14) TETANUS TOXOID ADMINIST (11/07/13) Family History: States: Unknown Family Hx, [place] (Mother) - Social History Hx Tobacco Use: No Hx Alcohol Use: Yes Hx Substance Use: No - Immunization History Hx Tetanus Toxoid Vaccination: Yes Hx Influenza Vaccination: No Hx Pneumococcal Vaccination: Yes Review Of Systems Except As Marked, All Systems Reviewed And Found Negative. Constitutional: Negative for: Fever Respiratory: Positive for: Shortness of Breath Gastrointestinal: Negative for: Vomiting Physical Exam - Physical Exam Additional Physical Exam Comments: Constitutional: No acute distress. Head: Normocephalic. Atraumatic. Eyes: PERRL. ENT: Moist mucous membranes. Neck: Supple. Cardiovascular: Regular rate. Radial pulse 2+ bilaterally. Chest: No tenderness. Respiratory: Clear to auscultation bilaterally. No wheezing. (Received duoneb treatment prior to my examination.) GI: Soft. Nontender. Back: No CVA tenderness. Musculoskeletal: No tenderness or swelling of extremities. Skin: No rash. Neurologic: Alert, no focal deficit. ED Course And Treatment O2 Sat by Pulse Oximetry: 97 Medical Decision Making Medical Decision Making: Breathing improved. Continue steroids for 4 more days and albuterol as needed. CXR no pneumonia. EKG NSR 89 bpm, no ST/T wave changes. Patient states she will see her primary doctor for refill of her pain medication. Disposition - Disposition Disposition: HOME/ ROUTINE Disposition Time: 23:46 Condition: STABLE Prescriptions: Prednisone [Deltasone] 3 tab PO DAILY #12 tablet Instructions: Asthma in Adults, Lupus Forms: [email or web address] (Erit[place]an) - Clinical Impression Clinical Impression: Asthma exacerbation - Scribe Statement The provider has reviewed the documentation as recorded by the Scribe (Latesha Linda) Provider Attestation: All medical record entries made by the Scribe were at my direction and personally dictated by me. I have reviewed the chart and agree that the record accurately reflects my personal performance of the history, physical exam, me dical decision making, and the department course for this patient. I have also personally directed, reviewed, and agree with the discharge instructions and disposition.
[2018-08-14] MEDS ORDERED: Morphine 4 MG/ML VIAL ONE (22:58)
[2018-08-14 22:59] VITALS: BP 152/69; PULSE 90; RESP 23
--- NOTE | 2018-08-15 10:50 | RAD ---
HISTORY: dyspnea COMPARISON: Chest x-ray performed 05/09/18 TECHNIQUE: Chest, one view. FINDINGS: Left-sided central venous catheter extends to the SVC. LUNGS: Mild pulmonary venous congestion. No focal consolidation. Please note that chest x-ray has limited sensitivity for the detection of pulmonary masses. PLEURA: No significant pleural effusion identified. No definite pneumothorax . CARDIOVASCULAR: Cardiomegaly. OSSEOUS STRUCTURES: No acute osseous abnormality identified. VISUALIZED UPPER ABDOMEN: Elevation of the right hemidiaphragm. OTHER FINDINGS: None. IMPRESSION: Mild pulmonary venous congestion. Cardiomegaly. Left-sided central venous catheter extends the SVC.
--- NOTE | 2018-08-16 08:03 | CARD ---
APPROVED REPORT Date of service: 08/14/2018 EKG Measurement Heart [id number] <Conclusion> Normal sinus rhythm Normal ECG
== END 2018-08-14 23:58 | disposition home or self-care (01) ==
LOC: C.ER 21:32
DX: J45.901 Unspecified asthma with (acute) exacerbation (principal); I11.0 Hypertensive heart disease with heart failure; I50.9 Heart failure, unspecified; F17.210 Nicotine dependence, cigarettes, uncomplicated
CPT/HCPCS: 71045; 93005; 94150; 94640; 96374; 99285; J2270

== ENCOUNTER 2018-08-16 17:33 | Observation (INO) | payer MEDICAID ==
[2018-08-16 17:34] VITALS: BMI 47.8
[2018-08-16] MEDS ORDERED: Albuterol-Ipratrop 3 mg / 0.5 (3 ml) UD ONE ×2 (17:48→20:00)
[2018-08-16] MEDS ORDERED: Albuterol-Ipratrop 3 mg / 0.5 (3 ml) UD INH STA ×3 (19:28→19:29)
[2018-08-16] MEDS ORDERED: Sodium Chloride 0.9% 1,000 ML IV ONE (19:30)
--- NOTE | 2018-08-16 19:42 | C.PDOC ---
History Of Present Illness 57 year old female with PMHx of asthma presents to the ED c/o SOB for the past few days. Patient reports she has been using her nebulizer at home with no relief. Patient also reports chest pain that worsens with deep breathing. Patie nt denies fever, chills, nausea, vomit, diarrhea, weakness, numbness. Time Seen by Provider: 08/16/18 19:26 Chief Complaint (Nursing): Shortness Of Breath History Per: Patient History/Exam Limitations: no limitations Onset/Duration Of Symptoms: Days Current Symptoms Are (Timing): Still Present Initiating Event: Upper Respiratory Illness Quality: Tightness Exacerbating Factor(s): Exertion Current Respiratory Medications: See Home Med List Associated Symptoms: Chest Pain Recent travel outside of the [place]: No Additional History Per: Patient Past Medical History Reviewed: Historical Data, Nursing Documentation, Vital Signs Vital Signs: Last Vital Signs Temp 98.5 F 08/16/18 17:49 Pulse 83 08/16/18 17:49 Resp 22 08/16/18 17:49 BP 135/83 08/16/18 17:49 Pulse Ox 93 L 08/16/18 17:49 - Medical History PMH: Anemia, Anxiety, Arthritis, Asthma, Bipolar Disorder, Cardia Arrhythmia, CHF, COPD, Depression, Emphysema, HTN, Hypercholesterolemia, Osteoporosis, Rheumatoid Arthritis, Schizophrenia, Sleep Apnea Denies: Chronic Kidney Disease Surgical History: Cholecystectomy, Tonsillectomy, - [facility] Procedures NASAL LACERATION SUTURE (11/07/13) NON-INVASIVE MECHANICAL VENTILATION (07/19/14) TETANUS TOXOID ADMINIST (11/07/13) Family History: States: Unknown Family Hx, [place] (Mother) - Social History Hx Tobacco Use: No Hx Alcohol Use: Yes Hx Substance Use: No - Immunization History Hx Tetanus Toxoid Vaccination: Yes Hx Influenza Vaccination: No Hx Pneumococcal Vaccination: Yes Review Of Systems Constitutional: Negative for: Fever, Chills Cardiovascular: Positive for: Chest Pain. Negative for: Palpitations Respiratory: Positive for: Shortness of Breath. Negative for: Cough Gastrointestinal: Negative for: Nausea, Vomiting Skin: Negative for: Rash Neurological: Negative for: Weakness, Numbness Physical Exam - Physical Exam Appears: Non-toxic, In Acute Distress Skin: Normal Color, Warm, Dry Head: Atraumatic, Normacephalic Eye(s): bilateral: Normal Inspection Oral Mucosa: Moist Neck: Normal ROM, Supple Chest: Symmetrical Cardiovascular: Rhythm Regular Respiratory: Rales (baese bilaterally), Rhonchi (at the bases bilaterally), Wheezing (expiratory), Other (mild dyspnic) Gastrointestinal/Abdominal: Soft, No Tenderness, No Guarding, No Rebound Extremity: Normal ROM, No Tenderness, No Swelling Neurological/Psych: Oriented x3, Normal Speech, Normal Cognition Gait: Steady ED Course And Treatment - Laboratory Results Result Diagrams: 08/16/18 20:04 08/16/18 20:04 ECG: Interpreted By Me, Viewed By Me ECG Rhythm: Sinus Rhythm, ST/T Changes ECG Interpretation: No Acute Changes, Abnormal Interpretation Of ECG: nsr, non spc ST-^%T changes infero- lateral leadsabnormal tracings Rate From EC O2 Sat by Pulse Oximetry: 93 Pulse Ox Interpretation: Abnormal Medical Decision Making Medical Decision Making: Plan: * ABG * EKG * Labs * CXR * Duoneb X3 * Solumedrol 125 mg IVP * IV fluids Disposition Discussed With Dr.: Minesh Andino Doctor Will See Patient In The: Hospital Counseled Patient/Family Regarding: Diagnosis - Disposition Disposition: HOSPITALIZED Disposition Time: 21:01 Condition: STABLE Forms: [facility] ([place]odian) - POA Present On Arrival: None - Clinical Impression Clinical Impression: Dyspnea, Respiratory distress, COPD exacerbation - Scribe Statement The provider has reviewed the documentation as recorded by the Scribe Adrian Araujo All medical record entries made by the Scribe were at my direction and personally dictated by me. I have reviewed the chart and agree that the record accurately reflects my personal performance of the history, physical exam, medical decision making, and the department course for this patient. I have also personally directed, reviewed, and agree with the discharge instructions and disposition.
[2018-08-16 20:10] LABS: BASO # 0.1 K/uL (0.0-0.2); BASO % 0.6 % (0.0-2.0); EOS # 0.1 K/uL (0.0-0.7); EOS % 0.4 % (0.0-4.0); HEMOGLOBIN 11.6 g/dL (11.0-16.0); LYMPH % 17.6 % (20.0-40.0); MEAN CELL VOLUME 77.7 fL (81.0-99.0); MEAN CORPUSCULAR HEMOGLOBIN 25.9 pg (27.0-31.0); MEAN CORPUSCULAR HGB CONC 33.3 g/dL (33.0-37.0); MONO # 1.2 K/uL (0.0-0.8); MONO % 6.8 % (0.0-10.0); NEUT # 12.7 K/uL (1.8-7.0); NEUT % 74.6 % (50.0-75.0); NRBC % 0.2 % (0.0-2.0); RBC 4.47 Mil/uL (3.80-5.20); RED CELL DISTRIBUTION WIDTH 15.9 % (11.5-14.5)
[2018-08-16 20:21] LABS: ALB/GLOB RATIO 1.2 (1.0-2.1); ALT/SGPT 31 U/L (9-52); AST/SGOT 24 U/L (14-36); BLOOD UREA NITROGEN 20 mg/dL (7-17); CALCIUM 9.4 mg/dl (8.6-10.4); GFR NON-AFRICAN AMERICAN > 60
[2018-08-16 20:28] LABS: B-TYPE NATRIURETIC PEPTIDE 343 pg/mL (0-900)
[2018-08-16 20:32] LABS: ABG ALLEN TEST POS; ARTERIAL BLOOD GAS HCO3 26.4 mmol/L (21-28); ARTERIAL BLOOD GAS HEMOGLOBIN 11.4 g/dL (11.7-17.4); ARTERIAL BLOOD GAS PCO2 40 mm/Hg (35-45); ARTERIAL BLOOD GAS PH 7.43 (7.35-7.45); ARTERIAL BLOOD GAS PO2 69 mm/Hg (80-100); ARTERIAL BLOOD GAS TCO2 27.7 mmol/L (22-28)
[2018-08-16] MEDS ORDERED: Magnesium Sulfate 1 gm in D5W 1 GM/100 ML BAG IVPB ONE (21:05)
[2018-08-16] MEDS ORDERED: Magnesium Sulfate 1 gm in D5W 2 GM/200 ML BAG IVPB ONE (21:26)
[2018-08-16] MEDS ORDERED: Albuterol-Ipratrop 3 mg / 0.5 (3 ml) UD INH PRN (22:06)
[2018-08-16] MEDS ORDERED: Albuterol HFA 90 mcg/actuation (8 g) INH PRN (22:15)
[2018-08-16 23:57] VITALS: RESP 20
--- NOTE | 2018-08-17 00:03 | CP.PCM.HP ---
<Cheyenne Troncoso - Last Filed: 08/17/18 00:00> History of Present Illness - History of Present Illness History of Present Illness: Cheyenne Troncoso PGY1 H&P for Dr. Andino 57 F with PMH Asthma, COPD, Lupus , RA, CHF, HTN, HLD, osteoporosis, Anxiety, bipolar, depression presents to ED with shortness of breath x 3 days and b/l hand pain. She was seen in the ED 2 days prior for the hand pain, which she attributes to her Lupus flare, and was sent home with steroids. Pt reports continuation of the b/l hand pain which she rates 8/10 and onset of shortness of breath. She reports using her nebulizer at home, with no relief. She reports associated chest tightness, which she feels in the center of the chest radiating to lateral ribs. She denies dizziness, abdominal pain, nausea, vomiting, diarrhea. In the ED, she was given IV solumedrol 125mg and duonebs x3, which she reports helped with her symptoms. SxH: cholecystectomy, tonsillectomy, IVC filter placement, c section SocH: 2 cigs/day x 29 years, denies etoh or recreational drug use FamH: mom DM, asthma, arthritis, atherosclerosis. dad , cirrhosis Allergies: dilaudid, mependine Meds: as per EMR PMD: Dr. Willis Present on Admission - Present on Admission Any Indicators Present on Admission: Yes History of DVT/PE: Yes Review of Systems - Review of Systems Review of Systems: as per HPI Past Patient History - Infectious Disease Hx of Infectious Diseases: None - Past Medical History & Family History Past Medical History?: Yes - Past Social History Smoking Status: Light Smoker < 10 Cigarettes Daily - CARDIAC Hx Cardia Arrhythmia: Yes Hx Congestive Heart Failure: Yes Hx Hypercholesterolemia: Yes Hx Hypertension: Yes - PULMONARY Hx Asthma: Yes Hx Chronic Obstructive Pulmonary Disease (COPD): Yes Hx Emphysema: Yes Hx Sleep Apnea: Yes - NEUROLOGICAL Hx Neurological Disorder: No - HEENT Hx HEENT Problems: No - RENAL Hx Chronic Kidney Disease: No - ENDOCRINE/METABOLIC Hx Diabetes Mellitus Type 2: Yes Hx Systemic Lupus Erythematosus: Yes - HEMATOLOGICAL/ONCOLOGICAL Hx Anemia: Yes - INTEGUMENTARY Hx Dermatological Problems: No - MUSCULOSKELETAL/RHEUMATOLOGICAL Hx Arthritis: Yes Hx Osteoporosis: Yes Hx Rheumatoid Arthritis: Yes - GASTROINTESTINAL Hx Gastrointestinal Disorders: No - GENITOURINARY/GYNECOLOGICAL Hx Genitourinary Disorders: No - PSYCHIATRIC Hx Anxiety: Yes Hx Bipolar Disorder: Yes Hx Depression: Yes Hx Schizophrenia: Yes Hx Substance Use: No - SURGICAL HISTORY Hx Cholecystectomy: Yes Hx Tonsillectomy: Yes - ANESTHESIA Hx Anesthesia: Yes Hx Anesthesia Reactions: No Hx Malignant Hyperthermia: No Meds Allergies/Adverse Reactions: Allergies Allergy/AdvReac Type Severity Reaction Status Date / Time hydromorphone HCl Allergy Severe ANAPHYLAXIS Verified 08/16/18 17:48 [From Dilaudid] meperidine HCl [From Demerol] Allergy Severe ANAPHYLAXIS Verified 08/16/18 17:48 Physical Exam - Constitutional Appears: Well, No Acute Distress - Head Exam Head Exam: ATRAUMATIC, NORMOCEPHALIC - Eye Exam Eye Exam: EOMI, Normal appearance, PERRL Pupil Exam: NORMAL ACCOMODATION - ENT Exam ENT Exam: Mucous Membranes Moist, Normal Exam - Neck Exam Neck exam: Positive for: Normal Inspection - Respiratory Exam Respiratory Exam: Clear to Auscultation Bilateral, Rhonchi, Wheezes, NORMAL BREATHING PATTERN. absent: Accessory Muscle Use, Rales, Respiratory Distress Additional comments: rhonchi in lower lung wilder b/l moderate expiratory wheezes in upper and lower lung wilder b/l - Cardiovascular Exam Cardiovascular Exam: REGULAR RHYTHM, +S1, +S2. absent: Gallop, Rubs, Systolic Murmur - GI/Abdominal Exam GI & Abdominal Exam: Normal Bowel Sounds, Soft. absent: Distended, Firm, Tenderness - Extremities Exam Extremities exam: Negative for: pedal edema Additional comments: B/L UE: ulnar deviation in b/l hands - Neurological Exam Neurological exam: Alert, CN II-XII Intact, Oriented x3 - Psychiatric Exam Psychiatric exam: Normal Affect - Skin Skin Exam: Normal Color Results - Vital Signs Recent Vital Signs: Last Vital Signs Temp 98.4 F 08/16/18 23:55 Pulse 81 08/16/18 23:55 Resp 20 08/16/18 23:55 BP 149/83 08/16/18 23:55 Pulse Ox 97 08/16/18 23:55 - Labs Result Diagrams: 08/16/18 20:04 08/16/18 20:04 Labs: Laboratory Results - last 24 hr 08/16/18 08/16/18 08/16/18 20:04 20:04 20:04 WBC 17.0 H D RBC 4.47 Hgb 11.6 Hct 34.7 MCV 77.7 L D MCH 25.9 L MCHC 33.3 RDW 15.9 H Plt Count 283 MPV 8.0 Neut % (Auto) 74.6 Lymph % (Auto) 17.6 L Cochran % (Auto) 6.8 Eos % (Auto) 0.4 Baso % (Auto) 0.6 Neut # (Auto) 12.7 H Lymph # (Auto) 3.0 Cochran # (Auto) 1.2 H Eos # (Auto) 0.1 Baso # (Auto) 0.1 D-Dimer, Quantitative < 200 Puncture Site pCO2 pO2 HCO3 ABG pH ABG Total CO2 ABG O2 Saturation ABG Base Excess ABG Hemoglobin ABG Carboxyhemoglobin POC ABG HHb (Measured) ABG Methemoglobin Wilman Test A-a O2 Difference Respiratory Index Hgb O2 Saturation FiO2 Sodium 145 Potassium 3.9 Chloride 104 Carbon Dioxide 27 Anion Gap 18 BUN 20 H Creatinine 0.7 Est GFR ( Amer) > 60 Est GFR (Non-Af Amer) > 60 Random Glucose 110 H Calcium 9.4 Total Bilirubin 0.3 AST 24 ALT 31 Alkaline Phosphatase 79 Troponin I < 0.0120 NT-Pro-B Natriuret Pep 343 Total Protein 7.4 Albumin 4.0 Globulin 3.4 Albumin/Globulin Ratio 1.2 08/16/18 20:20 WBC RBC Hgb Hct MCV MCH MCHC RDW Plt Count MPV Neut % (Auto) Lymph % (Auto) Cochran % (Auto) Eos % (Auto) Baso % (Auto) Neut # (Auto) Lymph # (Auto) Cochran # (Auto) Eos # (Auto) Baso # (Auto) D-Dimer, Quantitative Puncture Site Lr pCO2 40 pO2 69 L HCO3 26.4 ABG pH 7.43 ABG Total CO2 27.7 ABG O2 Saturation 96.0 ABG Base Excess 2.0 ABG Hemoglobin 11.4 L ABG Carboxyhemoglobin 2.4 H POC ABG HHb (Measured) 3.9 ABG Methemoglobin 1.2 Wilman Test Pos A-a O2 Difference 31.0 Respiratory Index 0.4 Hgb O2 Saturation 92.5 L FiO2 21.0 Sodium Potassium Chloride Carbon Dioxide Anion Gap BUN Creatinine Est GFR ( Amer) Est GFR (Non-Af Amer) Random Glucose Calcium Total Bilirubin AST ALT Alkaline Phosphatase Troponin I NT-Pro-B Natriuret Pep Total Protein Albumin Globulin Albumin/Globulin Ratio Assessment & Plan - Assessment and Plan (Free Text) Assessment: 57 F with PMH Asthma, COPD, Lupus , RA, CHF, HTN, HLD, osteoporosis, Anxiety, bipolar, depression presents to ED with shortness of breath x 3 days and b/l hand pain being evaluated and treated for COPD/Asthma exacerbation. Plan: Chest Pain - likely secondary to COPD exacerbation/lupus exacerbation - f/u CXR - troponin neg x1, f/u 2nd and 3rd - f/u EKG COPD/Asthma Exacerbation - symptoms improved after duonebs x3 in ED - receieved solumedrol 125mg IV in ED - WBC 17.0, likely secondary to steroids - CXR - ABG pH 7.43, O2 69 - duonebs INH q4h PRN - duonebs INH q6h TC - Ventolin 2 puff q6h PRN - solumedrol 40mg IVP Q8H - azithromycin 500 IV daily Lupus Exacerbation - continue home meds: - calcium carbonate 500 daily - Folic Acid 1mg PO daily - Plaquenil 200mg PO BID - Methotrexate 2.5mg 6 tabs PO on Tuesday - tylenol PRN for pain Rheumatoid Arthritis Exacerbation - continue home meds: - calcium carbonate 500 daily - Folic Acid 1mg PO daily - Plaquenil 200mg PO BID - Methotrexate 2.5mg 6 tabs PO on Tuesday - tylenol PRN for pain History of CHF - Digoxin 0.125mg PO daily - f/u BNP - HOB 30 degrees - I/Os - daily weights History of HLD - crestor 10 Hs History of chronic DVT RLE- s/p IVC filter - lovenox 40mg SC daily - plavix 7mg PO daily History of Depression - Cymbalta 60mg PO daily - Xanax 0.5mg PO TID PRN anxiety PPX DVT:lovenox 40mg SC daily GI: protonix 40mg PO daily HHD Case reviewed and plan discussed with Dr. Andino <Minesh Andino - Last Filed: 08/17/18 06:19> Results - Vital Signs Recent Vital Signs: Last Vital Signs Temp 98.4 F 08/16/18 23:55 Pulse 81 08/16/18 23:55 Resp 20 08/16/18 23:55 BP 149/83 08/16/18 23:55 Pulse Ox 97 08/16/18 23:55 - Labs Result Diagrams: 08/16/18 20:04 08/16/18 20:04 Labs: Laboratory Results - last 24 hr 08/16/18 08/16/18 08/16/18 20:04 20:04 20:04 WBC 17.0 H D RBC 4.47 Hgb 11.6 Hct 34.7 MCV 77.7 L D MCH 25.9 L MCHC 33.3 RDW 15.9 H Plt Count 283 MPV 8.0 Neut % (Auto) 74.6 Lymph % (Auto) 17.6 L Cochran % (Auto) 6.8 Eos % (Auto) 0.4 Baso % (Auto) 0.6 Neut # (Auto) 12.7 H Lymph # (Auto) 3.0 Cochran # (Auto) 1.2 H Eos # (Auto) 0.1 Baso # (Auto) 0.1 D-Dimer, Quantitative < 200 Puncture Site pCO2 pO2 HCO3 ABG pH ABG Total CO2 ABG O2 Saturation ABG Base Excess ABG Hemoglobin ABG Carboxyhemoglobin POC ABG HHb (Measured) ABG Methemoglobin Wilman Test A-a O2 Difference Respiratory Index Hgb O2 Saturation FiO2 Sodium 145 Potassium 3.9 Chloride 104 Carbon Dioxide 27 Anion Gap 18 BUN 20 H Creatinine 0.7 Est GFR ( Amer) > 60 Est GFR (Non-Af Amer) > 60 Random Glucose 110 H Calcium 9.4 Total Bilirubin 0.3 AST 24 ALT 31 Alkaline Phosphatase 79 Troponin I < 0.0120 NT-Pro-B Natriuret Pep 343 Total Protein 7.4 Albumin 4.0 Globulin 3.4 Albumin/Globulin Ratio 1.2 08/16/18 20:20 WBC RBC Hgb Hct MCV MCH MCHC RDW Plt Count MPV Neut % (Auto) Lymph % (Auto) Cochran % (Auto) Eos % (Auto) Baso % (Auto) Neut # (Auto) Lymph # (Auto) Cochran # (Auto) Eos # (Auto) Baso # (Auto) D-Dimer, Quantitative Puncture Site Lr pCO2 40 pO2 69 L HCO3 26.4 ABG pH 7.43 ABG Total CO2 27.7 ABG O2 Saturation 96.0 ABG Base Excess 2.0 ABG Hemoglobin 11.4 L ABG Carboxyhemoglobin 2.4 H POC ABG HHb (Measured) 3.9 ABG Methemoglobin 1.2 Wilman Test Pos A-a O2 Difference 31.0 Respiratory Index 0.4 Hgb O2 Saturation 92.5 L FiO2 21.0 Sodium Potassium Chloride Carbon Dioxide Anion Gap BUN Creatinine Est GFR ( Amer) Est GFR (Non-Af Amer) Random Glucose Calcium Total Bilirubin AST ALT Alkaline Phosphatase Troponin I NT-Pro-B Natriuret Pep Total Protein Albumin Globulin Albumin/Globulin Ratio Assessment & Plan - Date & Time Date: 08/17/18 (I have seen and examined the patient. I agree with the findings and plan of care as documented by Dr. Troncoso. Patient with chest pain and COPD exacerbation. ROMIx3 with EKG. Nebs, oxygen, and solumedrol. Also with history of lupus. Continue home meds. Monitor for changes.) Time: 06:18 Attending/Attestation - Attestation I have personally seen and examined this patient.: Yes I have fully participated in the care of the patient.: Yes I have reviewed all pertinent clinical information: Yes
[2018-08-17] MEDS: Albuterol-Ipratrop 3 mg / 0.5 (3 ml) UD INH SCH ×4 (01:22→22:50)
[2018-08-17 07:27] LABS: BASO % 0.2 % (0.0-2.0); HEMOGLOBIN 11.2 g/dL (11.0-16.0); LYMPH # 0.9 K/uL (1.0-4.3); LYMPH % 8.5 % (20.0-40.0); MEAN CORPUSCULAR HEMOGLOBIN 25.9 pg (27.0-31.0); MEAN CORPUSCULAR HGB CONC 32.8 g/dL (33.0-37.0); MEAN PLATELET VOLUME 8.5 fL (7.2-11.7); MONO # 0.2 K/uL (0.0-0.8); MONO % 1.7 % (0.0-10.0); NEUT # 9.1 K/uL (1.8-7.0); NEUT % 89.6 % (50.0-75.0); PLATELET COUNT 284 K/uL (130-400); RBC 4.34 Mil/uL (3.80-5.20); WHITE BLOOD COUNT 10.1 K/uL (4.8-10.8)
[2018-08-17 07:30] LABS: INR 1.1; PROTHROMBIN TIME 12.1 SECONDS (9.7-12.2)
[2018-08-17 07:43] LABS: B-TYPE NATRIURETIC PEPTIDE 315 pg/mL (0-900)
[2018-08-17 07:51] LABS: ALB/GLOB RATIO 1.2 (1.0-2.1); ALBUMIN 3.8 g/dL (3.5-5.0); ALT/SGPT 28 U/L (9-52); AST/SGOT 27 U/L (14-36); BLOOD UREA NITROGEN 25 mg/dL (7-17); CALCIUM 9.1 mg/dl (8.6-10.4); GFR NON-AFRICAN AMERICAN > 60
[2018-08-17 09:18] LABS: LYMPHOCYTE 13 % (20-40); MONOCYTE 2 % (0-10); NEUTROPHIL 85 % (50-75); TOTAL CELLS COUNTED 100
[2018-08-17 09:19] LABS: ANISOCYTOSIS SLIGHT; HYPOCHROMIC SLIGHT; PLATELET ESTIMATE NORMAL (NORMAL); POLYCHROMIC SLIGHT
[2018-08-17 09:21] LABS: MICROCYTOSIS SLIGHT
--- NOTE | 2018-08-17 09:31 | RAD ---
HISTORY: Shortness of breath and wheezing. COMPARISON: 08/14/2018 TECHNIQUE: Chest PA and lateral FINDINGS: LINES AND TUBES: Left-sided central venous catheter terminates in the SVC. LUNG AND PLEURA: The lungs are well inflated. There is moderate worsening pulmonary venous congestion. The lungs are well inflated and clear. No pleural effusion or pneumothorax. HEART AND MEDIASTINUM: There is persistent mild cardiomegaly. The hilar and mediastinal contours are within normal limits. SKELETAL STRUCTURES: The bony structures are within normal limits for the patient's age. VISUALIZED UPPER ABDOMEN: Normal. OTHER FINDINGS: None. IMPRESSION: Mild cardiomegaly and worsening moderate pulmonary venous congestion.
[2018-08-17] MEDS: Enoxaparin 40 mg Syringe SC SCH (09:41)
[2018-08-17] MEDS: Pantoprazole 40 mg EC Tab PO SCH (09:41)
[2018-08-17] MEDS: MethylPREDNISolone 40 mg Vial IVP SCH ×2 (09:42→17:07)
[2018-08-17] MEDS: Calcium Carbonate 500 mg Chewable Antacid Tab PO SCH ×2 (09:44→17:08)
[2018-08-17] MEDS ORDERED: Azithromycin 500 MG in Sodium Chloride 0.9% 250 ML IVPB SCH (10:00)
[2018-08-17] MEDS ORDERED: Acetaminophen-Codeine 300/30 mg Tab PO PRN (16:21)
[2018-08-17 17:08] VITALS: PULSE 74
[2018-08-17] MEDS ORDERED: Digoxin 125 mcg (0.125 mg) Tab PO SCH (18:00)
--- NOTE | 2018-08-17 23:37 | CP.PCM.PN ---
Subjective - Date & Time of Evaluation Date of Evaluation: 08/17/18 Time of Evaluation: 08:00 - Subjective Subjective: PGY-[address] Anna. Patient seen and examined at bedside, resting in bed in no acute distress. Patient complaining of severe chronic pain to bilateral hands. States she ran out of her home med of tylenol #4. States her breathing has improved with nebulizer treatments. Denies fever, chills, chest pain, nausea, vomiting, and abdominal pain. Objective - Vital Signs/Intake and Output Vital Signs (last 24 hours): Temp Pulse Resp BP Pulse Ox 98.0 F 74 20 138/81 94 L 08/17/18 15:21 08/17/18 15:21 08/17/18 15:21 08/17/18 15:21 08/17/18 20:00 Intake and Output: 08/17/18 08/18/18 18:59 06:59 Intake Total 350 Balance 350 - Medications Medications: Current Medications Acetaminophen/Codeine Phosphate (Tylenol/Codeine 300 Mg/30 Mg) 1 ea PO Q8H PRN PRN Reason: Pain, severe (8-10) Last Admin: 08/17/18 17:08 Dose: 1 ea Albuterol (Ventolin Hfa 90 Mcg/Actuation (8 G)) 1 puff INH RQ6 PRN PRN Reason: Shortness of Breath Albuterol/Ipratropium (Duoneb 3 Mg/0.5 Mg (3 Ml) Ud) 3 ml INH RQ6 TC Last Admin: 08/17/18 22:50 Dose: Not Given Albuterol/Ipratropium (Duoneb 3 Mg/0.5 Mg (3 Ml) Ud) 3 ml INH RQ4 PRN PRN Reason: Shortness of Breath Alprazolam (Xanax) 0.5 mg PO TID PRN PRN Reason: Anxiety Last Admin: 08/17/18 00:19 Dose: 0.5 mg Aspirin (Aspirin Chewable) 81 mg PO DAILY [facility] Last Admin: 08/17/18 09:41 Dose: 81 mg Calcium Carbonate (Tums) 500 mg PO BID [facility] Last Admin: 08/17/18 17:08 Dose: 500 mg Clopidogrel Bisulfate (Plavix) 75 mg PO DAILY [facility] Last Admin: 08/17/18 09:41 Dose: 75 mg Digoxin (Digoxin) 0.125 mg PO DAILY@1800 [facility] Last Admin: 08/17/18 17:07 Dose: 0.125 mg Duloxetine HCl (Cymbalta) 60 mg PO DAILY [facility] Last Admin: 08/17/18 09:41 Dose: 60 mg Enoxaparin Sodium (Lovenox) 40 mg SC DAILY [facility] Last Admin: 08/17/18 09:41 Dose: 40 mg Folic Acid (Folic Acid) 1 mg PO DAILY [facility] Last Admin: 08/17/18 09:41 Dose: 1 mg Hydroxychloroquine Sulfate (Plaquenil) 200 mg PO BID [facility]; Protocol Last Admin: 08/17/18 17:07 Dose: 200 mg Influenza Virus Vaccine (Fluzone Quad [id number]) 60 mcg IM .ONCE ONE Stop: 08/19/18 10:01 Methotrexate (Methotrexate) 2.5 mg PO QWK [facility] Methylprednisolone (Solu-Medrol) 40 mg IVP BID [facility] Last Admin: 08/17/18 17:07 Dose: 40 mg Pantoprazole Sodium (Protonix Ec Tab) 40 mg PO DAILY [facility] Last Admin: 08/17/18 09:41 Dose: 40 mg Rosuvastatin Calcium (Crestor) 10 mg PO [facility] Last Admin: 08/17/18 22:15 Dose: 10 mg Trazodone HCl (Desyrel) 100 mg PO [facility] Last Admin: 08/17/18 22:15 Dose: 100 mg - Labs Labs: 08/17/18 07:09 08/17/18 07:09 PT 12.1 SECONDS (9.7-12.2) 08/17/18 07:09 INR 1.1 08/17/18 07:09 - Constitutional Appears: No Acute Distress - Head Exam Head Exam: ATRAUMATIC, NORMOCEPHALIC - Eye Exam Eye Exam: EOMI - ENT Exam ENT Exam: Mucous Membranes Moist - Neck Exam Neck Exam: Full ROM - Respiratory Exam Respiratory Exam: Wheezes. absent: Clear to Ausculation Bilateral, Rales, Rhonc hi, Respiratory Distress - Cardiovascular Exam Cardiovascular Exam: REGULAR RHYTHM, +S1, +S2 - GI/Abdominal Exam GI & Abdominal Exam: Soft. absent: Guarding, Tenderness, Rebound - Extremities Exam Extremities Exam: Full ROM. absent: Pedal Edema Additional comments: Arthritis changes to bilateral hands - Neurological Exam Neurological Exam: Alert, Awake, Oriented x3 - Psychiatric Exam Psychiatric exam: Anxious - Skin Skin Exam: Dry, Normal Color, Warm Assessment and Plan - Assessment and Plan (Free Text) Plan: 57 F with PMH Asthma, COPD, Lupus , RA, CHF, HTN, HLD, osteoporosis, Anxiety, bipolar, depression presents to ED with shortness of breath x 3 days and b/l hand pain being evaluated and treated for COPD/Asthma exacerbation. Plan: Chest Pain - likely secondary to COPD exacerbation/lupus exacerbation - CXR: Mild cardiomegaly and worsening moderate pulmonary venous congestion. (see full note) - troponin neg x1 - f/u EKG: NSR at 79bpm, nonspecific T wave abnormality COPD/Asthma Exacerbation - WBC 17.0, likely secondary to steroids - ABG pH 7.43, O2 69 - duonebs INH q4h PRN - duonebs INH q6h TC - Ventolin 2 puff q6h PRN - solumedrol 40mg IVP Q8H - azithromycin 500 IV daily Lupus Exacerbation - continue home meds: - calcium carbonate 500 daily - Folic Acid 1mg PO daily - Plaquenil 200mg PO BID - Methotrexate 2.5mg 6 tabs PO on Tuesday - tylenol #4 300/30 1 tab Q8H PRN for pain Rheumatoid Arthritis Exacerbation - continue home meds: - calcium carbonate 500 daily - Folic Acid 1mg PO daily - Plaquenil 200mg PO BID - Methotrexate 2.5mg 6 tabs PO on Tuesday - tylenol #4 300/30 1 tab Q8H PRN for pain History of CHF - Digoxin 0.125mg PO daily - BNP negative - HOB 30 degrees - I/Os - daily weights History of HLD - crestor 10 Hs History of chronic DVT RLE- s/p IVC filter - lovenox 40mg SC daily - plavix 7mg PO daily History of Depression - Cymbalta 60mg PO daily - Xanax 0.5mg PO TID PRN anxiety PPX DVT:lovenox 40mg SC daily GI: protonix 40mg PO daily [facility]
[2018-08-18] MEDS: Albuterol-Ipratrop 3 mg / 0.5 (3 ml) UD INH SCH ×3 (01:45→13:42)
[2018-08-18 05:28] LABS: BARBITURATES, UR NEGATIVE (NEGATIVE); BENZODIAZEPINES, UR NEGATIVE (NEGATIVE); PHENCYCLIDINE, UR NEGATIVE (NEGATIVE)
[2018-08-18 05:46] LABS: OPIATES, UR POSITIVE (NEGATIVE)
[2018-08-18] MEDS ORDERED: Acetaminophen-Codeine 300/30 mg Tab PO STA (06:29)
[2018-08-18 07:07] LABS: INR 1.1; PROTHROMBIN TIME 12.1 SECONDS (9.7-12.2)
[2018-08-18 07:10] LABS: BASO % 0.2 % (0.0-2.0); HEMOGLOBIN 11.1 g/dL (11.0-16.0); LYMPH # 2.4 K/uL (1.0-4.3); LYMPH % 15.6 % (20.0-40.0); MEAN CELL VOLUME 78.9 fL (81.0-99.0); MEAN CORPUSCULAR HEMOGLOBIN 25.4 pg (27.0-31.0); MEAN CORPUSCULAR HGB CONC 32.3 g/dL (33.0-37.0); MEAN PLATELET VOLUME 8.4 fL (7.2-11.7); MONO # 1.1 K/uL (0.0-0.8); MONO % 7.3 % (0.0-10.0); NEUT # 11.9 K/uL (1.8-7.0); NEUT % 76.9 % (50.0-75.0); RBC 4.38 Mil/uL (3.80-5.20); RED CELL DISTRIBUTION WIDTH 16.1 % (11.5-14.5); WHITE BLOOD COUNT 15.4 K/uL (4.8-10.8)
--- NOTE | 2018-08-18 07:28 | CP.PCM.PN ---
Subjective - Date & Time of Evaluation Date of Evaluation: 08/18/18 Time of Evaluation: 07:28 - Subjective Subjective: Patient complaining of chronic pain to total body. Objective - Vital Signs/Intake and Output Vital Signs (last 24 hours): Temp Pulse Resp BP Pulse Ox 98.9 F 86 20 144/79 94 L 08/18/18 00:00 08/18/18 00:00 08/18/18 00:00 08/18/18 00:00 08/18/18 04:05 Intake and Output: 08/18/18 08/18/18 06:59 18:59 Intake Total 350 Balance 350 - Medications Medications: Current Medications Acetaminophen/Codeine Phosphate (Tylenol/Codeine 300 Mg/30 Mg) 1 ea PO Q8H PRN PRN Reason: Pain, severe (8-10) Last Admin: 08/17/18 17:08 Dose: 1 ea Albuterol (Ventolin Hfa 90 Mcg/Actuation (8 G)) 1 puff INH RQ6 PRN PRN Reason: Shortness of Breath Albuterol/Ipratropium (Duoneb 3 Mg/0.5 Mg (3 Ml) Ud) 3 ml INH RQ6 TC Last Admin: 08/18/18 01:45 Dose: Not Given Albuterol/Ipratropium (Duoneb 3 Mg/0.5 Mg (3 Ml) Ud) 3 ml INH RQ4 PRN PRN Reason: Shortness of Breath Alprazolam (Xanax) 0.5 mg PO TID PRN PRN Reason: Anxiety Last Admin: 08/17/18 00:19 Dose: 0.5 mg Aspirin (Aspirin Chewable) 81 mg PO DAILY [facility] Last Admin: 08/17/18 09:41 Dose: 81 mg Calcium Carbonate (Tums) 500 mg PO BID [facility] Last Admin: 08/17/18 17:08 Dose: 500 mg Clopidogrel Bisulfate (Plavix) 75 mg PO DAILY [facility] Last Admin: 08/17/18 09:41 Dose: 75 mg Digoxin (Digoxin) 0.125 mg PO DAILY@1800 [facility] Last Admin: 08/17/18 17:07 Dose: 0.125 mg Duloxetine HCl (Cymbalta) 60 mg PO DAILY [facility] Last Admin: 08/17/18 09:41 Dose: 60 mg Enoxaparin Sodium (Lovenox) 40 mg SC DAILY [facility] Last Admin: 08/17/18 09:41 Dose: 40 mg Folic Acid (Folic Acid) 1 mg PO DAILY [facility] Last Admin: 08/17/18 09:41 Dose: 1 mg Hydroxychloroquine Sulfate (Plaquenil) 200 mg PO BID [facility]; Protocol Last Admin: 08/17/18 17:07 Dose: 200 mg Influenza Virus Vaccine (Fluzone Quad [id number]) 60 mcg IM .ONCE ONE Stop: 08/19/18 10:01 Methotrexate (Methotrexate) 2.5 mg PO QWK [facility] Methylprednisolone (Solu-Medrol) 40 mg IVP BID [facility] Last Admin: 08/17/18 17:07 Dose: 40 mg Pantoprazole Sodium (Protonix Ec Tab) 40 mg PO DAILY [facility] Last Admin: 08/17/18 09:41 Dose: 40 mg Rosuvastatin Calcium (Crestor) 10 mg PO HS [facility] Last Admin: 08/17/18 22:15 Dose: 10 mg Trazodone HCl (Desyrel) 100 mg PO [facility] Last Admin: 08/17/18 22:15 Dose: 100 mg - Labs Labs: 08/18/18 06:48 08/17/18 07:09 PT 12.1 SECONDS (9.7-12.2) 08/18/18 06:48 INR 1.1 08/18/18 06:48 - Head Exam Head Exam: ATRAUMATIC
[2018-08-18 07:38] VITALS: O2SAT 95
[2018-08-18 07:38] LABS: ALB/GLOB RATIO 1.2 (1.0-2.1); ALBUMIN 3.8 g/dL (3.5-5.0); ALT/SGPT 28 U/L (9-52); AST/SGOT 16 U/L (14-36); BLOOD UREA NITROGEN 26 mg/dL (7-17); CALCIUM 9.4 mg/dl (8.6-10.4); GFR NON-AFRICAN AMERICAN > 60
[2018-08-18] MEDS: MethylPREDNISolone 40 mg Vial IVP SCH (09:36)
[2018-08-18] MEDS: Pantoprazole 40 mg EC Tab PO SCH (10:35)
[2018-08-18] MEDS: Enoxaparin 40 mg Syringe SC SCH (10:35)
[2018-08-18] MEDS: Calcium Carbonate 500 mg Chewable Antacid Tab PO SCH (12:41)
[2018-08-18] MEDS ORDERED: Acetaminophen-Codeine 300/30 mg Tab PO PRN (13:42)
--- NOTE | 2018-08-18 14:49 | CARD ---
APPROVED REPORT Date of service: 08/16/2018 EKG Measurement Heart [id number] [id number] <Conclusion> Normal sinus rhythm Nonspecific T wave abnormality Prolonged QT Abnormal ECG
[2018-08-18 16:16] VITALS: BP 154/83; PULSE 83; TEMP 98.4
--- NOTE | 2018-08-18 23:39 | CP.PCM.DIS ---
Provider - Provider Date of Admission: 08/16/18 21:07 Attending physician: Minesh Andino MD Time Spent in preparation of Discharge (in minutes): 35 Diagnosis - Discharge Diagnosis (1) Exacerbation of systemic lupus Status: Acute (2) Rheumatoid arthritis flare Status: Acute (3) COPD exacerbation Status: Acute (4) Chest pain Status: Acute Hospital Course - Lab Results Lab Results: Most Recent Lab Values WBC 15.4 K/uL (4.8-10.8) H D 08/18/18 06:48 RBC 4.38 Mil/uL (3.80-5.20) 08/18/18 06:48 Hgb 11.1 g/dL (11.0-16.0) 08/18/18 06:48 Hct 34.5 % (34.0-47.0) 08/18/18 06:48 MCV 78.9 fL (81.0-99.0) L 08/18/18 06:48 MCH 25.4 pg (27.0-31.0) L 08/18/18 06:48 MCHC 32.3 g/dL (33.0-37.0) L 08/18/18 06:48 RDW 16.1 % (11.5-14.5) H 08/18/18 06:48 Plt Count 314 K/uL (130-400) 08/18/18 06:48 MPV 8.4 fL (7.2-11.7) 08/18/18 06:48 Neut % (Auto) 76.9 % (50.0-75.0) H 08/18/18 06:48 Lymph % (Auto) 15.6 % (20.0-40.0) L 08/18/18 06:48 [place] % (Auto) 7.3 % (0.0-10.0) 08/18/18 06:48 Eos % (Auto) 0.0 % (0.0-4.0) 08/18/18 06:48 Baso % (Auto) 0.2 % (0.0-2.0) 08/18/18 06:48 Neut # (Auto) 11.9 K/uL (1.8-7.0) H 08/18/18 06:48 Lymph # (Auto) 2.4 K/uL (1.0-4.3) 08/18/18 06:48 [place] # (Auto) 1.1 K/uL (0.0-0.8) H 08/18/18 06:48 Eos # (Auto) 0.0 K/uL (0.0-0.7) 08/18/18 06:48 Baso # (Auto) 0.0 K/uL (0.0-0.2) 08/18/18 06:48 Neutrophils % (Manual) 85 % (50-75) H 08/17/18 07:09 Lymphocytes % (Manual) 13 % (20-40) L 08/17/18 07:09 Monocytes % (Manual) 2 % (0-10) 08/17/18 07:09 Platelet Estimate Normal (NORMAL) 08/17/18 07:09 Polychromasia Slight 08/17/18 07:09 Hypochromasia (manual) Slight 08/17/18 07:09 Anisocytosis (manual) Slight 08/17/18 07:09 Microcytosis (manual) Slight 08/17/18 07:09 PT 12.1 SECONDS (9.7-12.2) 08/18/18 06:48 INR 1.1 08/18/18 06:48 D-Dimer, Quantitative < 200 ng/mlDDU (0-243) 08/16/18 20:04 Puncture Site Lr 08/16/18 20:20 pCO2 40 mm/Hg (35-45) 08/16/18 20:20 pO2 69 mm/Hg (80-100) L 08/16/18 20:20 HCO3 26.4 mmol/L (21-28) 08/16/18 20:20 ABG pH 7.43 (7.35-7.45) 08/16/18 20:20 ABG Total CO2 27.7 mmol/L (22-28) 08/16/18 20:20 ABG O2 Saturation 96.0 % (95-98) 08/16/18 20:20 ABG Base Excess 2.0 mmol/L (-2.0-3.0) 08/16/18 20:20 ABG Hemoglobin 11.4 g/dL (11.7-17.4) L 08/16/18 20:20 ABG Carboxyhemoglobin 2.4 % (0.5-1.5) H 08/16/18 20:20 POC ABG HHb (Measured) 3.9 % (0.0-5.0) 08/16/18 20:20 ABG Methemoglobin 1.2 % (0.0-3.0) 08/16/18 20:20 Wilman Test Pos 08/16/18 20:20 A-a O2 Difference 31.0 mm/Hg 08/16/18 20:20 Respiratory Index 0.4 08/16/18 20:20 Hgb O2 Saturation 92.5 % (95.0-98.0) L 08/16/18 20:20 FiO2 21.0 % 08/16/18 20:20 Sodium 142 mmol/L (132-148) 08/18/18 06:48 Potassium 4.7 mmol/L (3.6-5.2) 08/18/18 06:48 Chloride 101 mmol/L (98-107) 08/18/18 06:48 Carbon Dioxide 31 mmol/L (22-30) H 08/18/18 06:48 Anion Gap 15 (10-20) 08/18/18 06:48 BUN 26 mg/dL (7-17) H 08/18/18 06:48 Creatinine 0.8 mg/dL (0.7-1.2) 08/18/18 06:48 Est GFR ( Amer) > 60 08/18/18 06:48 Est GFR (Non-Af Amer) > 60 08/18/18 06:48 POC Glucose (mg/dL) 170 mg/dL (65-110) H 08/18/18 11:39 Random Glucose 142 mg/dL (65-105) H 08/18/18 06:48 Calcium 9.4 mg/dl (8.6-10.4) 08/18/18 06:48 Total Bilirubin 0.3 mg/dL (0.2-1.3) 08/18/18 06:48 AST 16 U/L (14-36) 08/18/18 06:48 ALT 28 U/L (9-52) 08/18/18 06:48 Alkaline Phosphatase 71 U/L (38-126) 08/18/18 06:48 Troponin I < 0.0120 ng/mL (0.00-0.120) 08/16/18 20:04 NT-Pro-B Natriuret Pep 315 pg/mL (0-900) 08/17/18 07:09 Total Protein 7.0 g/dL (6.3-8.3) 08/18/18 06:48 Albumin 3.8 g/dL (3.5-5.0) 08/18/18 06:48 Globulin 3.2 gm/dL (2.2-3.9) 08/18/18 06:48 Albumin/Globulin Ratio 1.2 (1.0-2.1) 08/18/18 06:48 Urine Opiates Screen Positive (NEGATIVE) H 08/18/18 05:01 Urine Methadone Screen Negative (NEGATIVE) 08/18/18 05:01 Ur Barbiturates Screen Negative (NEGATIVE) 08/18/18 05:01 Ur Phencyclidine Scrn Negative (NEGATIVE) 08/18/18 05:01 Ur Amphetamines Screen Negative (NEGATIVE) 08/18/18 05:01 U Benzodiazepines Scrn Negative (NEGATIVE) 08/18/18 05:01 U Oth Cocaine Metabols Negative (NEGATIVE) 08/18/18 05:01 U Cannabinoids Screen Negative (NEGATIVE) 08/18/18 05:01 Influenza Typ A,B (EIA) Negative for flu a/b (NEGATIVE) 08/18/18 05:02 - Hospital Course Hospital Course: On admission: 57 F with PMH Asthma, COPD, Lupus , RA, CHF, HTN, HLD, osteoporosis, Anxiety, bipolar, depression presents to ED with shortness of breath x 3 days and b/l hand pain. She was seen in the ED 2 days prior for the hand pain, which she attributes to her Lupus flare, and was sent home with steroids. Pt reports continuation of the b/l hand pain which she rates 8/10 and onset of shortness of breath. She reports using her nebulizer at home, with no relief. She reports associated chest tightness, which she feels in the center of the chest radiating to lateral ribs. She denies dizziness, abdominal pain, nausea, vomiting, diarrhe a. Hospitalization: Patient was admitted for chest pain, COPD and lupus exacerbation. Troponin x1 was negative. CXR showed the followng: Mild cardiomegaly and worsening moderate pulmonary venous congestion. (see full report.) Patient's COPD exacerbation was treated with steroids, duonebs and azithromycin. Lupus home meds were restarted and patient's pain was treated with her home med to tylenol with codeine. Discharge instructions: Patient is stable for discharge as per Dr. Anna. You must follow up with your Rheumatology doctor within 3 days. You must also follow up with your primary care physician within one week. You are being prescribed the following: Tylenol #4, 2 tabs TID Resume all other home medications. Return to emergency room if you experience new or worsening symptoms. Discharge Exam - Head Exam Head Exam: ATRAUMATIC - Additional Findings Additional findings: - Constitutional Appears: No Acute Distress - Head Exam Head Exam: ATRAUMATIC, NORMOCEPHALIC - Eye Exam Eye Exam: EOMI - ENT Exam ENT Exam: Mucous Membranes Moist - Neck Exam Neck Exam: Full ROM - Respiratory Exam Respiratory Exam: Wheezes. absent: Clear to Ausculation Bilateral, Rales, Rhonchi, Respiratory Distress - Cardiovascular Exam Cardiovascular Exam: REGULAR RHYTHM, +S1, +S2 - GI/Abdominal Exam GI & Abdominal Exam: Soft. absent: Guarding, Tenderness, Rebound - Extremities Exam Extremities Exam: Full ROM. absent: Pedal Edema Additional comments: Arthritis changes to bilateral hands - Neurological Exam Neurological Exam: Alert, Awake, Oriented x3 - Psychiatric Exam Psychiatric exam: Anxious - Skin Skin Exam: Dry, Normal Color, Warm Discharge Plan - Discharge Medications Prescriptions: Acetaminophen with Codeine [Tylenol with Codeine #4 Tablet] 2 each PO TID #15 tablet Prednisone [Deltasone] 40 mg PO DAILY 4 Days #8 tablet - Follow Up Plan Condition: STABLE Disposition: HOME/ ROUTINE Instructions: Heart Failure, Adult (DC), Shortness of Breath (Dyspnea) (DC), Exacerbation of COPD (DC) Additional Instructions: Patient is stable for discharge as per Dr. nAna. You must follow up with your Rheumatology doctor within 3 days. You must also follow up with your primary care physician within one week. You are being prescribed the following: Tylenol #4 Resume all other home medications. Return to emergency room if you experience new or worsening symptoms.
[2018-08-19] MEDS ORDERED: Influenza Vaccine 60 MCG/0.5 ML SYR (3 yr & up) IM ONE (10:00)
== END 2018-08-18 17:45 | disposition home or self-care (01) ==
LOC: C.ER 17:33 → C.9E 21:07 → C.3T 21:56
PROVIDERS: ADMIT Family Medicine; ATTEND Family Medicine
DX: M32.9 Systemic lupus erythematosus, unspecified (principal); M06.9 Rheumatoid arthritis, unspecified; J44.1 Chronic obstructive pulmonary disease with (acute) exacerbation; I11.0 Hypertensive heart disease with heart failure; F31.9 Bipolar disorder, unspecified; M81.0 Age-related osteoporosis without current pathological fracture; I50.9 Heart failure, unspecified; E78.5 Hyperlipidemia, unspecified; E11.9 Type 2 diabetes mellitus without complications; R07.9 Chest pain, unspecified; Z90.49 Acquired absence of other specified parts of digestive tract; Z87.891 Personal history of nicotine dependence; Z83.3 Family history of diabetes mellitus; Z82.5 Family history of asthma and other chronic lower respiratory diseases
CPT/HCPCS: 36415; 71046; 80053; 80324; 80345; 80346; 80349; 80353; 80358; 80361; 82803; 82948; 83880; 83992; 84484; 85025; 85378; 85610; 87804; 93005; 94640; 96365; 96374; 99283; G0378; J1642; J1650; J1885; J2060; J2270; J2920; J2930; J3475; J7030

== ENCOUNTER 2018-09-01 01:52 | Emergency (ER) | payer MEDICAID ==
[2018-09-01 01:53] VITALS: PULSE 74; BMI 47.8
[2018-09-01 02:08] VITALS: O2SAT 98
[2018-09-01 02:26] LABS: SQUAMOUS EPITHIAL < 1 /hpf (0-5); URINE BILIRUBIN NEGATIVE (NEGATIVE); URINE CLARITY Clear (Clear); URINE COLOR Straw (YELLOW); URINE GLUCOSE (UA) NORMAL (Normal); URINE LEUKOCYTE ESTERASE NEG Leu/uL (Negative); URINE PROTEIN NEGATIVE (NEGATIVE); URINE UROBILINOGEN NORMAL mg/dL (0.2-1.0)
[2018-09-01 02:29] LABS: URINE BLOOD NEGATIVE (NEGATIVE)
[2018-09-01 03:38] LABS: BASO # 0.1 K/uL (0.0-0.2); BASO % 0.5 % (0.0-2.0); EOS # 0.1 K/uL (0.0-0.7); EOS % 0.4 % (0.0-4.0); HEMOGLOBIN 11.2 g/dL (11.0-16.0); LYMPH # 1.5 K/uL (1.0-4.3); LYMPH % 9.7 % (20.0-40.0); MEAN CELL VOLUME 78.7 fL (81.0-99.0); MEAN CORPUSCULAR HGB CONC 31.8 g/dL (33.0-37.0); MONO # 0.4 K/uL (0.0-0.8); MONO % 2.6 % (0.0-10.0); NEUT # 13.6 K/uL (1.8-7.0); NEUT % 86.8 % (50.0-75.0); PLATELET COUNT 263 K/uL (130-400); RBC 4.49 Mil/uL (3.80-5.20); RED CELL DISTRIBUTION WIDTH 16.2 % (11.5-14.5); WHITE BLOOD COUNT 15.7 K/uL (4.8-10.8)
--- NOTE | 2018-09-01 03:46 | C.PDOC ---
History Of Present Illness 57 y/o female, with PMHx of Lupus and RA, presents to the ED complaining of abdominal cramping since 22:00, contrary to triage which states flank pain. The patient reports noticing trace blood on toilet tissue after BM at 10 pm last night. . She takes Tylenol #4 chronically for arthritis pain. The patient denies any nausea, vomiting, diarrhea, fever, urinary symptoms, lupus related symptoms/pain exacerbation or labored breathing. pt has appt with GI in one month, no prior hx of colonoscopy. Time Seen by Provider: 09/01/18 02:10 Chief Complaint (Nursing): Female Genitourinary History Per: Patient History/Exam Limitations: no limitations Onset/Duration Of Symptoms: Hrs Current Symptoms Are (Timing): Still Present Recent travel outside of the [place]: No Past Medical History Reviewed: Historical Data, Nursing Documentation, Vital Signs Vital Signs: Last Vital Signs Temp 98.5 F 09/01/18 02:06 Pulse 88 09/01/18 02:06 Resp 18 09/01/18 02:06 BP 142/73 09/01/18 02:06 Pulse Ox 98 09/01/18 02:06 - Medical History PMH: Anemia, Anxiety, Arthritis, Asthma, Bipolar Disorder, Cardia Arrhythmia, CHF, COPD, Depression, Emphysema, HTN, Hypercholesterolemia, Osteoporosis, Rheumatoid Arthritis, Schizophrenia, Sleep Apnea Denies: Chronic Kidney Disease Surgical History: Cholecystectomy, Tonsillectomy, - [facility] Procedures NASAL LACERATION SUTURE (11/07/13) NON-INVASIVE MECHANICAL VENTILATION (07/19/14) TETANUS TOXOID ADMINIST (11/07/13) Family History: States: Unknown Family Hx, [place] (Mother) - Social History Hx Tobacco Use: No Hx Alcohol Use: Yes Hx Substance Use: No - Immunization History Hx Tetanus Toxoid Vaccination: Yes Hx Influenza Vaccination: No Hx Pneumococcal Vaccination: Yes Review Of Systems Constitutional: Negative for: Fever, Chills Respiratory: Negative for: Shortness of Breath, Other (labored breathing ) Gastrointestinal: Positive for: Abdominal Pain. Negative for: Nausea, Vomiting, Diarrhea Genitourinary: Negative for: Other (urinary symptoms) Physical Exam - Physical Exam Appears: Well, Non-toxic, No Acute Distress, Other (obese) Skin: Warm, Dry Head: Atraumatic, Normacephalic Eye(s): bilateral: PERRL, EOMI Neck: Supple Chest: No Tenderness Cardiovascular: Rhythm Regular, No Murmur Respiratory: No Rales, No Rhonchi, No Wheezing, Other (CTA b/l) Gastrointestinal/Abdominal: Soft, No Tenderness, No Distention, Other (Obese, large, round) Back: No CVA Tenderness Extremity: No Calf Tenderness, No Swelling Neurological/Psych: Oriented x3, Normal Speech, Normal Cognition ED Course And Treatment - Laboratory Results Result Diagrams: 09/01/18 03:32 09/01/18 03:32 O2 Sat by Pulse Oximetry: 98 (RA) Pulse Ox Interpretation: Normal Progress Note: Performed Rectal Exam: Chaperoned by Nurse [place]. found small amounts of hard stool as well as scant trace of blood on glove Medical Decision Making Medical Decision Making: pt with blood on toilet tissue after hard bm, with ? crampy abdominal pain; pt is chronic opioid user. pt not vomiting. no diarrhea. fever or chills. pt appears well with non tender abdomen, and is requesting food while in ed. pt feeling better after toradol; re-eval of abdomen is soft, nd, nt. no acute findings on labs. constipation note on axr. will d/c pt with miralax and colce. high fiber diet discussed with patient. f/u Dr Willis. Disposition Counseled Patient/Family Regarding: Studies Performed, Diagnosis, Need For Followup, Rx Given - Disposition Referrals: Isaac Willis MD [Primary Care Provider] - Marcus Warner MD [Staff Provider] - Disposition: HOME/ ROUTINE Disposition Time: 05:16 Condition: IMPROVED Additional Instructions: Please take stool softener as prescribed. Use Miralax for contipation when ne eded. Drink increased fluids and eat a anastasia fiber diet. Please try to move your appointment with gastroenterology sooner than scheduled appointment in one month. Can also follow up with Dr Warner. Colonoscopy is recommended for you. Return to ER for any worsening symptoms. Try not to strain with bowel movements. Prescriptions: Docusate Sodium [Colace] 100 mg PO BID #60 capsule Polyethylene Glycol 3350 [Miralax] 17 gm PO DAILY #1 bottle Instructions: High Fiber Diet, Constipation, Adult (DC) Forms: [employer] ([place]), General Discharge Instructions - Clinical Impression Clinical Impression: Constipation
[2018-09-01 03:52] LABS: ALB/GLOB RATIO 1.3 (1.0-2.1); ALT/SGPT 45 U/L (9-52); AST/SGOT 35 U/L (14-36); BLOOD UREA NITROGEN 17 mg/dL (7-17); CALCIUM 8.6 mg/dl (8.6-10.4); GFR NON-AFRICAN AMERICAN > 60; LIPASE 90 U/L (23-300)
[2018-09-01 04:00] LABS: ANISOCYTOSIS SLIGHT; BANDS 1 % (0-2); LYMPHOCYTE 5 % (20-40); MICROCYTOSIS SLIGHT; MONOCYTE 2 % (0-10); NEUTROPHIL 92 % (50-75); PLATELET ESTIMATE NORMAL (NORMAL); POLYCHROMIC SLIGHT; TOTAL CELLS COUNTED 100
[2018-09-01 04:01] LABS: TOXIC GRANULATION PRESENT
[2018-09-01 05:32] VITALS: BP 142/70; PULSE 78; RESP 20; TEMP 97.6
--- NOTE | 2018-09-01 08:45 | RAD ---
Date of service: 09/01/2018 HISTORY: Abdominal pain COMPARISON: None available. FINDINGS: BOWEL: There is moderate amount of stool in the colon. No obstruction. No free air. BONES: Normal. OTHER FINDINGS: Surgical clips in the right upper quadrant are related to prior cholecystectomy. IMPRESSION: Constipation. Nonobstructive bowel gas pattern.
== END 2018-09-01 05:31 | disposition home or self-care (01) ==
LOC: C.ER 01:52 → SUPCPDRO 01:52 → C.ER 05:31
DX: K59.00 Constipation, unspecified (principal); I10 Essential (primary) hypertension; M32.9 Systemic lupus erythematosus, unspecified; M06.9 Rheumatoid arthritis, unspecified; E78.00 Pure hypercholesterolemia, unspecified; F20.9 Schizophrenia, unspecified; I50.9 Heart failure, unspecified; J44.9 Chronic obstructive pulmonary disease, unspecified; M81.0 Age-related osteoporosis without current pathological fracture
CPT/HCPCS: 36415; 74018; 80053; 81001; 83690; 85025; 87086; 96374; 99285; G0328; J1885

== ENCOUNTER 2018-10-25 14:15 | Emergency (ER) | payer MEDICAID ==
[2018-10-25 14:15] VITALS: PULSE 74; BMI 47.8
[2018-10-25 14:30] VITALS: BP 139/79; PULSE 78; RESP 18; TEMP 98.7; O2SAT 94
--- NOTE | 2018-10-25 15:08 | C.PDOC ---
History Of Present Illness 57 year old female with PMHx of anxiety, depression, bipolar disorder, CHF, COPD, schizophrenia, and HTN presents to the ED complaining of chronic pain and anxiety. Patient refuses to be evaluated by me. She is requesting refill of Klonopin, Xanax, and Symbalta. Denies any chest pain, shortness of breath, fever, chills,nausea, vomiting, or diarrhea. Time Seen by Provider: 10/25/18 14:57 Chief Complaint (Nursing): Anxiety History Per: Patient History/Exam Limitations: no limitations Onset/Duration Of Symptoms: Days Current Symptoms Are (Timing): Still Present Suicide/Self Injury Attempted (Context): None Modifying Factor(s): None Associated Symptoms: Anxiety, Depression Past Medical History Reviewed: Historical Data, Nursing Documentation, Vital Signs Vital Signs: Last Vital Signs Temp 98.7 F 10/25/18 14:29 Pulse 78 10/25/18 14:29 Resp 18 10/25/18 14:29 BP 139/79 10/25/18 14:29 Pulse Ox 94 L 10/25/18 14:29 - Medical History PMH: Anemia, Anxiety, Arthritis, Asthma, Bipolar Disorder, Cardia Arrhythmia, CHF, COPD, Depression, Emphysema, HTN, Hypercholesterolemia, Osteoporosis, Rheumatoid Arthritis, Schizophrenia, Sleep Apnea Denies: Chronic Kidney Disease Surgical History: Cholecystectomy, Tonsillectomy, - [facility] Procedures NASAL LACERATION SUTURE (11/07/13) NON-INVASIVE MECHANICAL VENTILATION (07/19/14) TETANUS TOXOID ADMINIST (11/07/13) Family History: States: [place] (Mother) - Social History Hx Tobacco Use: No Hx Alcohol Use: Yes Hx Substance Use: No - Immunization History Hx Tetanus Toxoid Vaccination: Yes Hx Influenza Vaccination: No Hx Pneumococcal Vaccination: Yes Review Of Systems Except As Marked, All Systems Reviewed And Found Negative. Constitutional: Negative for: Fever, Chills Cardiovascular: Negative for: Chest Pain Respiratory: Negative for: Shortness of Breath Gastrointestinal: Negative for: Nausea, Vomiting, Abdominal Pain, Diarrhea Musculoskeletal: Positive for: Other (chronic pain ) Psych: Positive for: Anxiety, Depression Physical Exam - Physical Exam Appears: Non-toxic, Other (obese, argumentative, confrontational, verbally abusive to ED staff. Denied evaluation ) Eye(s): bilateral: Normal Inspection ED Course And Treatment O2 Sat by Pulse Oximetry: 94 (RA) Pulse Ox Interpretation: Abnormal Medical Decision Making Medical Decision Making: Impression: chronic pain/anxiety Last filled percocet, jocelin, nelson vo Codeine, 10/03-10/10. [facility] prescribers. declines to be evaluated. Klonoelvin ordered and may f/u as opt. Code pelon called. 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 Patient escorted from ED by security. Disposition Doctor Will See Patient In The: Office Counseled Patient/Family Regarding: Studies Performed, Diagnosis - Disposition Referrals: [employer] [facility] [Outside] [employer] [facility] [employer] [facility] [Outside] [facility] [Outside] [employer] [Outside] Isaac Willis MD [Staff Provider] - Disposition: HOME/ ROUTINE Disposition Time: 15:08 Condition: GOOD Additional Instructions: follow-up with your PMD for refills of your chronic pain meds and anxiety meds the ED may NOT be used to refill controlled meds Instructions: Anxiety, Adult (DC), Chronic Pain Forms: [employer] (Greek) - Clinical Impression Clinical Impression: Mixed anxiety and depressive disorder, Chronic pain - Scribe Statement The provider has reviewed the documentation as recorded by the Scribe Ueyn Tran All medical record entries made by the Scribe were at my direction and personally dictated by me. I have reviewed the chart and agree that the record accurately reflects my personal performance of the history, physical exam, medical decision making, and the department course for this patient. I have also personally directed, reviewed, and agree with the discharge instructions and disposition.
== END 2018-10-25 15:20 | disposition home or self-care (01) ==
LOC: C.ER 14:15
DX: F41.8 Other specified anxiety disorders (principal); G89.29 Other chronic pain

== ENCOUNTER 2019-01-09 21:45 | Inpatient (IN) | payer MEDICAID ==
[2019-01-09 21:45] VITALS: BMI 42.7
[2019-01-09] MEDS ORDERED: Albuterol-Ipratrop 3 mg / 0.5 (3 ml) UD ONE (22:25)
[2019-01-09] MEDS ORDERED: Albuterol-Ipratrop 3 mg / 0.5 (3 ml) UD INH STA (22:25)
[2019-01-09 23:27] LABS: BASO # 0.2 K/uL (0.0-0.2); BASO % 0.7 % (0.0-2.0); EOS # 0.2 K/uL (0.0-0.7); EOS % 0.6 % (0.0-4.0); HEMOGLOBIN 11.8 g/dL (11.0-16.0); LYMPH # 2.6 K/uL (1.0-4.3); LYMPH % 9.8 % (20.0-40.0); MEAN PLATELET VOLUME 7.9 fL (7.2-11.7); MONO # 1.8 K/uL (0.0-0.8); MONO % 6.7 % (0.0-10.0); NEUT # 22.1 K/uL (1.8-7.0); NEUT % 82.2 % (50.0-75.0); NRBC % 0.1 % (0.0-2.0); PLATELET COUNT 291 K/uL (130-400); RBC 4.54 Mil/uL (3.80-5.20); RED CELL DISTRIBUTION WIDTH 17.2 % (11.5-14.5)
[2019-01-09 23:28] LABS: MEAN CELL VOLUME 81.2 fL (81.0-99.0); WHITE BLOOD COUNT 26.8 K/uL (4.8-10.8)
--- NOTE | 2019-01-09 23:28 | C.PDOC ---
History Of Present Illness 58 yr old female w/ hx of Anemia, Anxiety, Arthritis, Asthma, Bipolar Disorder, Asthma, HTN, Hypercholesterolemia, Rheumatoid Arthritis, Schizophrenia presents for referral from Dr. Leo office for Anxiety, Suicidal Ideation and Chronic pain. Per Dr. Willis pt became distressed regarding a family issue and stated that she wanted to hurt herself, promping Dr. Willis to send her to the Emergency department. On exam pt notes chronic pain, for which Dr. Willis did not get her the designated prescriptions she wanted prompting her to say that she wanted to hurt herself. She notes that she would like 6mg of IM morphine and would be ok to go home. She notes that she does not want prescriptions here but is seeking 6mg of IM morphine for pain relief. She notes that she would not like tylenol or motrin. She notes she has not tried motrin or tylenol today and would unwilling to try and would only like opiates. She otherwise denies any fever, chills or night sweats. No chest pain or sob. She notes her chronic pain is in her distal joints, wrists and fingers. She denies any fall or trauma. No redness over joint area. No other complaints. Time Seen by Provider: 01/09/19 21:58 Chief Complaint (Nursing): Anxiety Past Medical History Vital Signs: Last Vital Signs Temp 99.8 F H 01/09/19 21:52 Pulse 105 H 01/09/19 21:52 Resp 20 01/09/19 21:52 BP 145/88 01/09/19 21:52 Pulse Ox 98 01/09/19 21:52 - Medical History PMH: Anemia, Anxiety, Arthritis, Asthma, Bipolar Disorder, Cardia Arrhythmia, CHF, COPD, Depression, Emphysema, HTN, Hypercholesterolemia, Osteoporosis, Rheumatoid Arthritis, Schizophrenia, Sleep Apnea Denies: Chronic Kidney Disease Surgical History: Cholecystectomy, Tonsillectomy, - [facility] Procedures NASAL LACERATION SUTURE (11/07/13) NON-INVASIVE MECHANICAL VENTILATION (07/19/14) TETANUS TOXOID ADMINIST (11/07/13) Family History: States: Unknown Family Hx, [place] (Mother) - Social History Hx Tobacco Use: No Hx Alcohol Use: No Hx Substance Use: No - Immunization History Hx Tetanus Toxoid Vaccination: Yes Hx Influenza Vaccination: No Hx Pneumococcal Vaccination: Yes Review Of Systems Constitutional: Negative for: Fever, Chills, Sweats, Weakness, Malaise Eyes: Negative for: Pain, Vision Change, Conjunctivae Inflammation, Eyelid Inflammation ENT: Negative for: Ear Pain, Ear Discharge, Nose Pain, Nose Congestion, Mouth Pain Cardiovascular: Negative for: Chest Pain, Palpitations, Orthopnea Respiratory: Negative for: Cough, Shortness of Breath, Hemoptysis, SOB with Excertion, Pleuritic Pain, Sputum Gastrointestinal: Negative for: Nausea, Vomiting, Abdominal Pain, Constipation, Melena Genitourinary: Negative for: Dysuria, Frequency, Hematuria Musculoskeletal: Positive for: Hand Pain (chronic from RA. no worse than normal). Negative for: Neck Pain, Shoulder Pain, Arm Pain, Back Pain, Leg Pain, Foot Pain Skin: Negative for: Rash, Lesions Neurological: Negative for: Weakness, Numbness Psych: Positive for: Anxiety Physical Exam - Physical Exam Appears: Well, Non-toxic, No Acute Distress Skin: Normal Color, Warm, Dry Head: Atraumatic, Normacephalic Eye(s): bilateral: Normal Inspection, PERRL, EOMI Ear(s): Bilateral: Normal Nose: Normal, No Flaring, No Discharge Oral Mucosa: Moist Tongue: Normal Appearing Lips: Normal Appearing Teeth: Normal Dentition Gingiva: Normal Appearing Throat: Normal, No Erythema, No Exudate Neck: Normal, Normal ROM, No Midline Cervical Tenderness, Supple, Other (no meningeal signs) Lymphatic: Normal Exam Chest: Symmetrical, No Deformity Cardiovascular: Rhythm Regular Respiratory: Normal Breath Sounds, No Rales, No Rhonchi, No Stridor Gastrointestinal/Abdominal: Normal Exam, Soft, No Tenderness Back: Normal Inspection, No CVA Tenderness, No Vertebral Tenderness Extremity: Normal ROM, No Tenderness, No Pedal Edema, No Calf Tenderness, Other (n/v intact in all extremities) Extremity: Bilateral: Atraumatic, Hips Non-Tender, No Pedal Edema, Normal ROM Pulses: Left Radial: Normal, Right Radial: Normal, Left Dorsalis Pedis: Normal, Right Dorsalis Pedis: Normal Neurological/Psych: Oriented x3, Normal Speech, Normal Cognition, Normal Cranial Nerves, No Cerebellar Signs, Normal Motor, Normal Sensation Gait: Steady Extremity: Right: No Drift, Left: No Drift ED Course And Treatment - Laboratory Results Result Diagrams: 01/09/19 23:18 01/09/19 23:18 O2 Sat by Pulse Oximetry: 98 Medical Decision Making Medical Decision Makin yr old F p/w referral from PMD for anxiety, chronic pain. Pt initially stated she was only here for chronic pain. When I consulted Dr. Willis- Dr. Willis stated that patient had been seen in office but was anxious and had said she wanted to hurt herself over a family issue. Pt is known to this ED to frequently ask for 6mg of IM morphine for pain relief and refilling of scripts. Was seen yesterday for pain issue and sent to PMD For eval. On exam, pt ambulating around ED in NAD, comfortable. On exam, non-ttp and no rash noted. Psych labs ordered. Crisis to See pt WBC 26k UA / XR ordered VBG, blood culture ordered 1233 xr unremarkable ABx ordered, broad spectrum pt has chf listen in chart: stable pressures at this time speaking in full sentences in NAD mild wheezes b/l appreciate consult w/ Dr. Andino: to obs to his service Disposition - Disposition Disposition Time: 00:34 Condition: STABLE Forms: [employer] (Tajik) - Clinical Impression Clinical Impression: Leukocytosis, SIRS (systemic inflammatory response syndrome)
[2019-01-09 23:41] LABS: ALB/GLOB RATIO 1.2 (1.0-2.1); ALBUMIN 4.2 g/dL (3.5-5.0); BLOOD UREA NITROGEN 16 mg/dL (7-17); CALCIUM 8.9 mg/dl (8.6-10.4); GFR NON-AFRICAN AMERICAN > 60
[2019-01-09 23:42] LABS: ALT/SGPT 34 U/L (9-52); AST/SGOT 55 U/L (14-36)
[2019-01-09 23:43] LABS: ACETAMINOPHEN < 10.0 ug/mL (10.0-30.0); SALICYLATE < 1.0 mg/dL 1
[2019-01-10] MEDS ORDERED: Albuterol-Ipratrop 3 mg / 0.5 (3 ml) UD INH STA (00:17)
[2019-01-10] MEDS ORDERED: MethylPREDNISolone 40 mg Vial IVP STA (00:17)
[2019-01-10 00:44] LABS: ANISOCYTOSIS SLIGHT; BANDS 1 % (0-2); EOSINOPHIL 1 % (0-4); LYMPHOCYTE 9 % (20-40); MONOCYTE 10 % (0-10); NEUTROPHIL 79 % (50-75); PLATELET ESTIMATE NORMAL (NORMAL); TOTAL CELLS COUNTED 100
--- NOTE | 2019-01-10 01:25 | CP.PCM.HP ---
<Ric Jacob - Last Filed: 01/10/19 01:25> History of Present Illness - History of Present Illness History of Present Illness: PGY-1 History and Physical for Dr. Andino Patient is a 58 year old female with PMHx asthma, COPD, Lupus , RA, CHF, HTN, HLD, osteoporosis, anxiety, bipolar, and depression who presents to ED with complaint of whole-body pain. Patient states that she takes Tylenol with codeine for pain at home, but ran out of her prescription before her appointment with her Artificial Pearl Maker, which was scheduled for 01/12. She had an appointment with Dr. Willis today, but states that he does not fill her RX for the Tylenol #4. She has also been out of her ventolin and has been mildly short of breath. She did admit subjective fevers/chills when asked. Denies abdominal pain, nausea, vomiting, diarrhea, dysuria, increased frequency. Also patient did admit to telling ER doctor that she wanted to kill herself because of the pain. PMHx: Asthma, COPD, Lupus , RA, CHF, HTN, HLD, osteoporosis, Anxiety, bipolar, depression SxH: cholecystectomy, tonsillectomy, IVC filter placement, c section SocH: 2 cigs/day, smoked since age 17 - used to smoke more, cut down since develoiping COPD. Rare/occasional etoh. Denies recreational drug use FamH: mom DM, asthma, arthritis, atherosclerosis. dad , cirrhosis Allergies: dilaudid, mependine Meds: - Ventolin 2 puff q6h PRN - calcium carbonate 500 daily - Folic Acid 1mg PO daily - Plaquenil 200mg PO BID - Methotrexate 2.5mg 6 tabs PO on Tuesday - tylenol #4 300/30 Q8 PRN for pain - Digoxin 0.125mg PO daily - Cymbalta 60mg PO daily - Xanax 0.5mg PO TID PRN anxiety PMD: Dr. Willis Present on Admission - Present on Admission Any Indicators Present on Admission: No Review of Systems - Constitutional Constitutional: Chills, Fever - EENT Eyes: absent: Blurred Vision, Diplopia Ears: absent: Dizziness Nose/Mouth/Throat: absent: Nasal Congestion, Nasal Discharge - Cardiovascular Cardiovascular: Pedal Edema. absent: Chest Pain, Dyspnea, Palpitations - Respiratory Respiratory: absent: Cough, Dyspnea - Gastrointestinal Gastrointestinal: absent: Diarrhea, Nausea, Vomiting - Genitourinary Genitourinary: absent: Dysuria, Flank Pain, Urinary Frequency, Urinary Urgency - Musculoskeletal Musculoskeletal: Back Pain, Myalgias, Neck Pain, Stiffness - Neurological Neurological: absent: Confusion, Dizziness, Numbness, Tingling - Psychiatric Psychiatric: Anxiety, Suicidal Ideation Past Patient History - Infectious Disease Hx of Infectious Diseases: None - Past Medical History & Family History Past Medical History?: Yes - Past Social History Smoking Status: Light Smoker < 10 Cigarettes Daily - CARDIAC Hx Cardia Arrhythmia: Yes Hx Congestive Heart Failure: Yes Hx Hypercholesterolemia: Yes Hx Hypertension: Yes - PULMONARY Hx Asthma: Yes Hx Chronic Obstructive Pulmonary Disease (COPD): Yes Hx Emphysema: Yes Hx Sleep Apnea: Yes - NEUROLOGICAL Hx Neurological Disorder: No - HEENT Hx HEENT Problems: No - RENAL Hx Chronic Kidney Disease: No - ENDOCRINE/METABOLIC Hx Diabetes Mellitus Type 2: Yes Hx Systemic Lupus Erythematosus: Yes - HEMATOLOGICAL/ONCOLOGICAL Hx Anemia: Yes - INTEGUMENTARY Hx Dermatological Problems: No - MUSCULOSKELETAL/RHEUMATOLOGICAL Hx Arthritis: Yes Hx Osteoporosis: Yes Hx Rheumatoid Arthritis: Yes - GASTROINTESTINAL Hx Gastrointestinal Disorders: No - GENITOURINARY/GYNECOLOGICAL Hx Genitourinary Disorders: No - PSYCHIATRIC Hx Anxiety: Yes Hx Bipolar Disorder: Yes Hx Depression: Yes Hx Schizophrenia: Yes Hx Substance Use: No - SURGICAL HISTORY Hx Cholecystectomy: Yes Hx Tonsillectomy: Yes - ANESTHESIA Hx Anesthesia: Yes Hx Anesthesia Reactions: No Hx Malignant Hyperthermia: No Meds Allergies/Adverse Reactions: Allergies Allergy/AdvReac Type Severity Reaction Status Date / Time hydromorphone HCl Allergy Severe ANAPHYLAXIS Verified 10/25/18 14:30 [From Dilaudid] meperidine HCl [From Demerol] Allergy Severe ANAPHYLAXIS Verified 10/25/18 14:30 Physical Exam - Constitutional Appears: Non-toxic, No Acute Distress - Head Exam Head Exam: ATRAUMATIC, NORMOCEPHALIC - Eye Exam Eye Exam: EOMI, Normal appearance - ENT Exam ENT Exam: Mucous Membranes Moist - Respiratory Exam Respiratory Exam: Wheezes (mild wheezes throughout), NORMAL BREATHING PATTERN. absent: Rales, Rhonchi - Cardiovascular Exam Cardiovascular Exam: REGULAR RHYTHM, +S1, +S2 - GI/Abdominal Exam GI & Abdominal Exam: Normal Bowel Sounds, Soft. absent: Distended, Rebound, Tenderness Additional comments: Central obesity - Extremities Exam Extremities exam: Negative for: pedal edema, tenderness - Neurological Exam Neurological exam: Alert, CN II-XII Intact, Oriented x3 - Psychiatric Exam Psychiatric exam: Anxious, Normal Affect - Skin Skin Exam: Dry, Intact Results - Vital Signs Recent Vital Signs: Last Vital Signs Temp 99.5 F 01/10/19 01:10 Pulse 105 H 01/09/19 21:52 Resp 20 01/09/19 21:52 BP 145/88 01/09/19 21:52 Pulse Ox 98 01/10/19 00:34 - Labs Result Diagrams: 01/09/19 23:18 01/09/19 23:18 Labs: Laboratory Results - last 24 hr 01/09/19 01/09/19 01/09/19 23:18 23:18 23:18 WBC 26.8 H D RBC 4.54 Hgb 11.8 Hct 36.9 MCV 81.2 D MCH 26.0 L MCHC 32.0 L RDW 17.2 H Plt Count 291 MPV 7.9 Neut % (Auto) 82.2 H Lymph % (Auto) 9.8 L [place] % (Auto) 6.7 Eos % (Auto) 0.6 Baso % (Auto) 0.7 Neut # (Auto) 22.1 H Lymph # (Auto) 2.6 [place] # (Auto) 1.8 H Eos # (Auto) 0.2 Baso # (Auto) 0.2 Neutrophils % (Manual) 79 H Band Neutrophils % 1 Lymphocytes % (Manual) 9 L Monocytes % (Manual) 10 Eosinophils % (Manual) 1 Platelet Estimate Normal Anisocytosis (manual) Slight Sodium 137 Potassium 3.7 Chloride 99 Carbon Dioxide 29 Anion Gap 13 BUN 16 Creatinine 0.8 Est GFR ( Amer) > 60 Est GFR (Non-Af Amer) > 60 Random Glucose 148 H Calcium 8.9 Phosphorus 2.2 L Magnesium 2.0 Total Bilirubin 0.5 AST 55 H D ALT 34 Alkaline Phosphatase 114 Total Protein 7.8 Albumin 4.2 Globulin 3.6 Albumin/Globulin Ratio 1.2 Salicylates < 1.0 Acetaminophen < 10.0 L Alcohol, Quantitative < 10 Assessment & Plan - Assessment and Plan (Free Text) Assessment: Leukocytosis -WBC 26.8. Not on steroids. -CXR 3/6 - pending official read. Possible LLL infiltrate. -UA - 2+ blood, no LE, WBCs -Lipase - WNL -UDS - f/u -Hepatitis panel/HIV 1 and 2 - f/u -Blood cultures - f/u Abx -Rocephin/Vanco given once in ED from broad spectrum coverage -Hold off on antibiotics for now as no clear course of infection Suicidal Ideation -1:1 observation -Psych consult, Dr. Orellana - f/u recs Asthma - Ventolin 2 puff q6h PRN Lupus - continue home meds: - calcium carbonate 500 daily - Folic Acid 1mg PO daily - Plaquenil 200mg PO BID - Methotrexate 2.5mg 6 tabs PO on Tuesday - tylenol #4 300/30 1 tab Q8H PRN for pain Rheumatoid Arthritis - continue home meds: - calcium carbonate 500 daily - Folic Acid 1mg PO daily - Plaquenil 200mg PO BID - Methotrexate 2.5mg 6 tabs PO on Tuesday - tylenol #4 300/30 1 tab Q8H PRN for pain CHF - Digoxin 0.125mg PO daily - Most recent BNP in August WNL - I/Os Hypercholesterolemia - crestor 10 Hs History of chronic DVT RLE- s/p IVC filter Meds from previous admission held pending confirmation - Not on list of home medications - lovenox 40mg SC daily - plavix 7mg PO daily Major Depression - Cymbalta 60mg PO daily - Xanax 0.5mg PO TID PRN anxiety PPX DVT: Heparin 5000 U SC Q8 HHD Assessment and plan discussed with Dr. Thu Jacob, PGY-1 <Minesh Andino - Last Filed: 01/10/19 06:10> Results - Vital Signs Recent Vital Signs: Last Vital Signs Temp 99.5 F 01/10/19 01:10 Pulse 105 H 01/09/19 21:52 Resp 20 01/09/19 21:52 BP 145/88 01/09/19 21:52 Pulse Ox 98 01/10/19 00:34 - Labs Result Diagrams: 01/09/19 23:18 01/09/19 23:18 Labs: Laboratory Results - last 24 hr 01/09/19 01/09/19 01/09/19 23:18 23:18 23:18 WBC 26.8 H D RBC 4.54 Hgb 11.8 Hct 36.9 MCV 81.2 D MCH 26.0 L MCHC 32.0 L RDW 17.2 H Plt Count 291 MPV 7.9 Neut % (Auto) 82.2 H Lymph % (Auto) 9.8 L [place] % (Auto) 6.7 Eos % (Auto) 0.6 Baso % (Auto) 0.7 Neut # (Auto) 22.1 H Lymph # (Auto) 2.6 [place] # (Auto) 1.8 H Eos # (Auto) 0.2 Baso # (Auto) 0.2 Neutrophils % (Manual) 79 H Band Neutrophils % 1 Lymphocytes % (Manual) 9 L Monocytes % (Manual) 10 Eosinophils % (Manual) 1 Platelet Estimate Normal Anisocytosis (manual) Slight pO2 VBG pH VBG pCO2 VBG HCO3 VBG Total CO2 VBG O2 Sat (Calc) VBG Base Excess VBG Potassium Glucose Lactate Sodium 137 Potassium 3.7 Chloride 99 Carbon Dioxide 29 Anion Gap 13 BUN 16 Creatinine 0.8 Est GFR ( Amer) > 60 Est GFR (Non-Af Amer) > 60 Random Glucose 148 H Calcium 8.9 Phosphorus 2.2 L Magnesium 2.0 Total Bilirubin 0.5 AST 55 H D ALT 34 Alkaline Phosphatase 114 Total Creatine Kinase Total Protein 7.8 Albumin 4.2 Globulin 3.6 Albumin/Globulin Ratio 1.2 Lipase Venous Blood Potassium Urine Color Urine Clarity Urine pH Ur Specific [place] Urine Protein Urine Glucose (UA) Urine Ketones Urine Blood Urine Nitrate Urine Bilirubin Urine Urobilinogen Ur Leukocyte Esterase Urine WBC (Auto) Urine RBC (Auto) Ur Squamous Epith Cells Hyaline Casts Salicylates < 1.0 Urine Opiates Screen Urine Methadone Screen Acetaminophen < 10.0 L Ur Barbiturates Screen Ur Phencyclidine Scrn Ur Amphetamines Screen U Benzodiazepines Scrn U Oth Cocaine Metabols U Cannabinoids Screen Alcohol, Quantitative < 10 Influenza Typ A,B (EIA) 01/09/19 01/10/19 01/10/19 23:58 01:19 01:19 WBC RBC Hgb Hct MCV MCH MCHC RDW Plt Count MPV Neut % (Auto) Lymph % (Auto) [place] % (Auto) Eos % (Auto) Baso % (Auto) Neut # (Auto) Lymph # (Auto) [place] # (Auto) Eos # (Auto) Baso # (Auto) Neutrophils % (Manual) Band Neutrophils % Lymphocytes % (Manual) Monocytes % (Manual) Eosinophils % (Manual) Platelet Estimate Anisocytosis (manual) pO2 VBG pH VBG pCO2 VBG HCO3 VBG Total CO2 VBG O2 Sat (Calc) VBG Base Excess VBG Potassium Glucose Lactate Sodium Potassium Chloride Carbon Dioxide Anion Gap BUN Creatinine Est GFR ( Amer) Est GFR (Non-Af Amer) Random Glucose Calcium Phosphorus Magnesium Total Bilirubin AST ALT Alkaline Phosphatase Total Creatine Kinase Total Protein Albumin Globulin Albumin/Globulin Ratio Lipase Venous Blood Potassium Urine Color Dora Urine Clarity Hazy Urine pH 5.0 Ur Specific [place] 1.031 H Urine Protein 2+ H Urine Glucose (UA) Normal Urine Ketones Negative Urine Blood Negative Urine Nitrate Negative Urine Bilirubin Negative Urine Urobilinogen Normal Ur Leukocyte Esterase Neg Urine WBC (Auto) 2 Urine RBC (Auto) 2 Ur Squamous Epith Cells 2 Hyaline Casts 0-2 Salicylates Urine Opiates Screen Positive H Urine Methadone Screen Negative Acetaminophen Ur Barbiturates Screen Negative Ur Phencyclidine Scrn Negative Ur Amphetamines Screen Negative U Benzodiazepines Scrn Negative U Oth Cocaine Metabols Negative U Cannabinoids Screen Negative Alcohol, Quantitative Influenza Typ A,B (EIA) Negative for flu a/b 01/10/19 01/10/19 01:19 01:26 WBC RBC Hgb Hct MCV MCH MCHC RDW Plt Count MPV Neut % (Auto) Lymph % (Auto) [place] % (Auto) Eos % (Auto) Baso % (Auto) Neut # (Auto) Lymph # (Auto) [place] # (Auto) Eos # (Auto) Baso # (Auto) Neutrophils % (Manual) Band Neutrophils % Lymphocytes % (Manual) Monocytes % (Manual) Eosinophils % (Manual) Platelet Estimate Anisocytosis (manual) pO2 49 VBG pH 7.48 H VBG pCO2 41 VBG HCO3 29.6 VBG Total CO2 31.8 H VBG O2 Sat (Calc) 89.4 H VBG Base Excess 6.4 H VBG Potassium 3.9 Glucose 151 H Lactate 1.9 Sodium 138.0 Potassium Chloride 105.0 Carbon Dioxide Anion Gap BUN Creatinine Est GFR ( Amer) Est GFR (Non-Af Amer) Random Glucose Calcium Phosphorus Magnesium Total Bilirubin AST ALT Alkaline Phosphatase Total Creatine Kinase 204 H Total Protein Albumin Globulin Albumin/Globulin Ratio Lipase 27 Venous Blood Potassium 3.9 Urine Color Urine Clarity Urine pH Ur Specific [place] Urine Protein Urine Glucose (UA) Urine Ketones Urine Blood Urine Nitrate Urine Bilirubin Urine Urobilinogen Ur Leukocyte Esterase Urine WBC (Auto) Urine RBC (Auto) Ur Squamous Epith Cells Hyaline Casts Salicylates Urine Opiates Screen Urine Methadone Screen Acetaminophen Ur Barbiturates Screen Ur Phencyclidine Scrn Ur Amphetamines Screen U Benzodiazepines Scrn U Oth Cocaine Metabols U Cannabinoids Screen Alcohol, Quantitative Influenza Typ A,B (EIA) Assessment & Plan - Date & Time Date: 01/10/19 (I have seen and examined the patient. I agree with the findings and plan of care as documented by Dr. Jacob. Patient with leukocytosis. Given antibiotics in ED. Hold for now. No clear sign or symptom indicating infectious source. Recheck in AM. Consider consult to hematology if does not resolve. Suicidal ideaion. 1:1. Consult to psych. History of asthma and lupus. Continue home meds. Monitor for acute changes.) Time: 06:07 Attending/Attestation - Attestation I have personally seen and examined this patient.: Yes I have fully participated in the care of the patient.: Yes I have reviewed all pertinent clinical information: Yes
[2019-01-10 01:28] LABS: SQUAMOUS EPITHIAL 2 /hpf (0-5); URINE BILIRUBIN NEGATIVE (NEGATIVE); URINE BLOOD NEGATIVE (NEGATIVE); URINE CLARITY Hazy (Clear); URINE COLOR Amber (YELLOW); URINE GLUCOSE (UA) NORMAL (Normal); URINE HYALINE CAST 0-2 /lpf (0-2); URINE LEUKOCYTE ESTERASE NEG Leu/uL (Negative); URINE PROTEIN 2+ mg/dL (NEGATIVE); URINE UROBILINOGEN NORMAL mg/dL (0.2-1.0)
[2019-01-10 01:34] LABS: VENOUS BLOOD GAS BASE EXCESS 6.4 mmol/L (0.0-2.0); VENOUS BLOOD GAS PCO2 41 mmHg (40-60); VENOUS BLOOD GAS PO2 49 mm/Hg (30-55); VENOUS BLOOD PH 7.48 (7.32-7.43)
[2019-01-10 01:41] LABS: LIPASE 27 U/L (23-300)
[2019-01-10 01:55] LABS: BARBITURATES, UR NEGATIVE (NEGATIVE); BENZODIAZEPINES, UR NEGATIVE (NEGATIVE); PHENCYCLIDINE, UR NEGATIVE (NEGATIVE)
[2019-01-10] MEDS ORDERED: Albuterol HFA 90 mcg/actuation (8 g) INH PRN (01:58)
[2019-01-10] MEDS ORDERED: Acetaminophen-Codeine 300/30 mg Tab PO PRN (02:04)
[2019-01-10] MEDS ORDERED: Vancomycin 1 GM 1 GM/250 ML BAG IVPB ONE (02:11)
[2019-01-10 02:14] LABS: OPIATES, UR POSITIVE (NEGATIVE)
[2019-01-10] MEDS ORDERED: Acetaminophen-Codeine 300/30 mg Tab PO ONE (02:22)
[2019-01-10 06:21] LABS: BASO # 0.1 K/uL (0.0-0.2); BASO % 0.4 % (0.0-2.0); EOS # 0.1 K/uL (0.0-0.7); EOS % 0.4 % (0.0-4.0); HEMOGLOBIN 12.3 g/dL (11.0-16.0); LYMPH # 1.5 K/uL (1.0-4.3); LYMPH % 5.7 % (20.0-40.0); MEAN CELL VOLUME 81.4 fL (81.0-99.0); MEAN CORPUSCULAR HEMOGLOBIN 25.6 pg (27.0-31.0); MEAN CORPUSCULAR HGB CONC 31.5 g/dL (33.0-37.0); MEAN PLATELET VOLUME 7.8 fL (7.2-11.7); MONO # 0.5 K/uL (0.0-0.8); MONO % 2.1 % (0.0-10.0); NEUT # 23.2 K/uL (1.8-7.0); NEUT % 91.4 % (50.0-75.0); PLATELET COUNT 303 K/uL (130-400); RBC 4.78 Mil/uL (3.80-5.20); RED CELL DISTRIBUTION WIDTH 17.7 % (11.5-14.5); WHITE BLOOD COUNT 25.4 K/uL (4.8-10.8)
[2019-01-10 06:34] LABS: INR 1.2; PROTHROMBIN TIME 13.5 SECONDS (9.7-12.2)
[2019-01-10 06:50] LABS: BLOOD UREA NITROGEN 17 mg/dL (7-17); GFR NON-AFRICAN AMERICAN > 60
[2019-01-10 06:51] LABS: ALB/GLOB RATIO 1.1 (1.0-2.1); ALBUMIN 4.2 g/dL (3.5-5.0); ALT/SGPT 33 U/L (9-52); AST/SGOT 47 U/L (14-36); CALCIUM 8.8 mg/dl (8.6-10.4)
[2019-01-10 08:01] LABS: HEPATITIS B SURFACE AG Negative (NEGATIVE)
[2019-01-10 08:02] LABS: HEPATITIS A IGM NEGATIVE (NEGATIVE); HEPATITIS B CORE AB NEGATIVE (NEGATIVE)
[2019-01-10 08:48] LABS: EOSINOPHIL 2 % (0-4); LYMPHOCYTE 7 % (20-40); MONOCYTE 3 % (0-10); NEUTROPHIL 88 % (50-75); TOTAL CELLS COUNTED 100
[2019-01-10 08:50] LABS: PLATELET ESTIMATE NORMAL (NORMAL)
[2019-01-10 08:51] LABS: STOMATOCYTES SLIGHT
[2019-01-10 08:57] LABS: ANISOCYTOSIS SLIGHT
[2019-01-10 09:22] LABS: HEPATITIS C ANTIBODY NEGATIVE (NEGATIVE)
--- NOTE | 2019-01-10 09:51 | CP.PCM.PN ---
<Aldair Falk - Last Filed: 01/10/19 15:10> Subjective - Date & Time of Evaluation Date of Evaluation: 01/10/19 Time of Evaluation: 09:51 - Subjective Subjective: PGY-1 Medicine Progress Note for Dr. Sesay Patient was seen and examined at bedside this AM, in no acute distress. No acute overnight events reported. Patient continues to endorse generalized body aches/pain which she attributes to her lupus. Patient says she has been off steroids generally taken for her acute flares for about 1 week now. She also endorses associated blurry vision, headaches, and shortness of breath. Of note, patient has a known history of asthma and COPD but has not taken respiratory treatment for about 1 week now. Patient admits to tobacco use, states she still smokes 2 cigarettes daily. Patient was counseled on smoking cessation. Objective - Vital Signs/Intake and Output Vital Signs (last 24 hours): Temp Pulse Resp BP Pulse Ox 98.5 F 94 H 20 146/85 93 L 01/10/19 08:00 01/10/19 08:00 01/10/19 08:00 01/10/19 08:00 01/10/19 08:00 - Medications Medications: Current Medications Acetaminophen/Codeine Phosphate (Tylenol/Codeine 300 Mg/30 Mg) 1 ea PO Q8 PRN PRN Reason: Pain, moderate (4-7) Last Admin: 01/10/19 02:17 Dose: 1 ea Albuterol (Ventolin Hfa 90 Mcg/Actuation (8 G)) 2 puff INH RQ6 PRN PRN Reason: Shortness of Breath Alprazolam (Xanax) 0.5 mg PO Q8H PRN PRN Reason: Anxiety Calcium Carbonate (Oscal) 500 mg PO DAILY [facility] Digoxin (Digoxin) 0.125 mg PO DAILY@1800 [facility] Duloxetine HCl (Cymbalta) 90 mg PO DAILY [facility] Folic Acid (Folic Acid) 1 mg PO DAILY [facility] Heparin Sodium (Porcine) (Heparin) 5,000 units SC Q8 [facility] Hydroxychloroquine Sulfate (Plaquenil) 200 mg PO BID [facility]; Protocol Ceftriaxone Sodium 1 gm/ (Sodium Chloride) 100 mls @ 100 mls/hr IVPB Q12H [facility]; Protocol Last Admin: 01/10/19 02:16 Dose: 100 mls/hr Methotrexate (Methotrexate) 15 mg PO QWK [facility] Rosuvastatin Calcium (Crestor) 10 mg PO HS [facility] Trazodone HCl (Desyrel) 100 mg PO HS LILY - Labs Labs: 01/10/19 06:18 01/10/19 06:18 PT 13.5 SECONDS (9.7-12.2) H 01/10/19 06:18 INR 1.2 01/10/19 06:18 APTT 34 SECONDS (21-34) 01/10/19 06:18 - Constitutional Appears: No Acute Distress - Head Exam Head Exam: ATRAUMATIC, NORMAL INSPECTION, NORMOCEPHALIC - Eye Exam Eye Exam: EOMI, Normal appearance, PERRL Pupil Exam: NORMAL ACCOMODATION - ENT Exam ENT Exam: Mucous Membranes Moist, Normal Exam Additional comments: slightly erythematous nasal turbinates erythematous pharynx noted, no exudates post-nasal drip - Neck Exam Neck Exam: Full ROM, Lymphadenopathy, Normal Inspection Additional comments: palpable enlarged lymph node along R anterior cervical chain - Respiratory Exam Respiratory Exam: Prolonged Expiratory Phase, Wheezes (diffuse expiratory wheezing). absent: Accessory Muscle Use, Respiratory Distress - Cardiovascular Exam Cardiovascular Exam: REGULAR RHYTHM, +S1, +S2 - GI/Abdominal Exam GI & Abdominal Exam: Soft, Normal Bowel Sounds. absent: Distended, Firm, Guarding, Rigid, Tenderness, Rebound Additional comments: obese - Extremities Exam Extremities Exam: Full ROM, Normal Capillary Refill, Normal Inspection, Pedal Edema (trace ). absent: Calf Tenderness - Back Exam Back Exam: NORMAL INSPECTION - Neurological Exam Neurological Exam: Alert, Awake, Oriented x3 - Skin Skin Exam: Dry, Intact, Normal Color, Warm Assessment and Plan - Assessment and Plan (Free Text) Assessment: 58 year old female with PMhx including lupus, RA, depression, anxiety, COPD, asthma, chronic DVT LE s/p IVC filter presenting with significantly elevared leukocytosis, generalized body aches/pain, sob. Plan: Leukocytosis -WBC 25.4 (3/6) -CXR (01/10): Moderate venous congestion. R hilar prominence, elevated R hemidiaphragm. Patchy increased markings at the R hilar region and L lung base. Cardiomegaly. Degenerative changes in the spine and shoulder. -UA - 2+ blood, no LE, WBCs -Lipase wnl -UDS: positive for opiates -patient takes tylenol with codeine for pain at home, given to her by her senior buyer -influenza negative -hepatitis panel negative -HIV negative -f/u Blood culture -Infectious Disease (Dr. Spann) consulted -Given immunocompromised state, patient would benefit from prophylactic anti- pseudomonal coverage with both a beta-lactam and fluroquinolone agent -Ciprofloxacin 400 IV q5h lily -Zosyn 3.375 q6h lily -Azithromycin 500 mg PO daily Hx of Asthma, COPD -diffuse expiratory wheezing noted on PE -O2 via NC prn -duonebs q6h lily x 24 hrs -solumedrol 40 mg IV q8h lily -ventolin 2 puff q6h PRN Hx of Lupus Hx of Rheumatoid Arthritis -calcium carbonate 500 daily -folic Acid 1 mg PO daily -hydroxychloroquine 200 mg PO BID -methotrexate 15 mg PO qwk -Tylenol #4 300/30 1 tab Q12H PRN for pain Hx of CHF -digoxin 0.125mg PO daily -Echo (03/2018): mild concentric LVH, EF 55-60%, LV diastolic function is abnormal, trace aortic regurgitation -strict I/Os Hx of HLD -crestor 10 mg PO HS Hx of chronic DVT, RLE- s/p IVC filter -Meds from previous admission held pending confirmation - Not on list of home medications -lovenox 40 mg SC daily -plavix 7 mg PO daily Major Depression Suicidal ideation -expressed suicidal ideation to ED doctor -1:1 on board -Psych recs (Dr. Orellana) appreciated -Cymbalta 90 mg PO daily -Xanax 0.5mg PO q8 prn PPx, Diet, Disposition -DVT ppx: scds, heparin 5000 U SC Q8 -GI ppx: lactobacillus -Diet: HHD Case discussed with Dr. Lázaro Falk DO, PGY-1 <Kip Sesay - Last Filed: 01/12/19 18:20> Objective - Vital Signs/Intake and Output Vital Signs (last 24 hours): Temp Pulse Resp BP Pulse Ox 98.0 F 94 H 20 135/72 95 01/12/19 16:00 01/12/19 16:00 01/12/19 16:00 01/12/19 16:00 01/12/19 16:57 - Medications Medications: Current Medications Acetaminophen/Codeine Phosphate (Tylenol/Codeine 300 Mg/30 Mg) 1 ea PO Q12 PRN PRN Reason: Pain, moderate (4-7) Last Admin: 01/11/19 16:33 Dose: 1 ea Albuterol (Ventolin Hfa 90 Mcg/Actuation (8 G)) 2 puff INH RQ6 PRN PRN Reason: Shortness of Breath Albuterol/Ipratropium (Duoneb 3 Mg/0.5 Mg (3 Ml) Ud) 3 ml INH RQ6 [facility] Stop: 01/13/19 14:01 Last Admin: 01/12/19 13:30 Dose: 3 ml Alprazolam (Xanax) 0.5 mg PO Q8H PRN PRN Reason: Anxiety Last Admin: 01/12/19 18:04 Dose: 0.5 mg Calcium Carbonate (Oscal) 500 mg PO DAILY [facility] Last Admin: 01/12/19 10:28 Dose: 500 mg Dextrose (Dextrose 50% Inj) 0 ml IV STAT PRN; Protocol PRN Reason: Hypoglycemia Protocol Dextrose (Glutose 15) 0 gm PO ONCE PRN; Protocol PRN Reason: Hypoglycemia Protocol Digoxin (Digoxin) 0.125 mg PO DAILY@1800 [facility] Last Admin: 01/12/19 18:04 Dose: 0.125 mg Duloxetine HCl (Cymbalta) 90 mg PO DAILY [facility] Last Admin: 01/12/19 10:27 Dose: 90 mg Fluticasone/Vilanterol (Breo Ellipta 200-25 Mcg Inh) 1 puff INH RQD [facility] Last Admin: 01/12/19 07:50 Dose: 1 puff Folic Acid (Folic Acid) 1 mg PO DAILY [facility] Last Admin: 01/12/19 10:28 Dose: 1 mg Glucagon (Glucagen Diagnostic Kit) 0 mg IM STAT PRN; Protocol PRN Reason: Hypoglycemia Protocol Heparin Sodium (Porcine) (Heparin) 5,000 units SC Q8 [facility] Last Admin: 01/12/19 16:32 Dose: Not Given Hydroxychloroquine Sulfate (Plaquenil) 200 mg PO BID [facility]; Protocol Last Admin: 01/12/19 18:01 Dose: 200 mg Piperacillin Sod/Tazobactam (Sod 3.375 gm/ Sodium Chloride) 100 mls @ 200 mls/hr IVPB Q6H [facility]; Protocol Last Admin: 01/12/19 10:28 Dose: 200 mls/hr Vancomycin HCl 1,000 mg/ (Sodium Chloride) 250 mls @ 166.6 mls/hr IVPB Q12H [facility]; Protocol Last Admin: 01/12/19 12:14 Dose: 166.6 mls/hr Dextrose (Dextrose 5% In Water 1000 Ml) 1,000 mls @ 0 mls/hr IV .Q0M PRN; Protocol PRN Reason: Hypoglycemia Protocol Insulin Human Regular (Novolin R) 0 unit SC ACHS [facility]; Protocol Last Admin: 01/12/19 18:01 Dose: 8 unit Lactobacillus Acidophilus (Lactobacillus) 1 cap PO BID [facility] Last Admin: 01/12/19 18:00 Dose: 1 cap Methotrexate (Methotrexate) 15 mg PO QWK [facility] Methylprednisolone (Solu-Medrol) 40 mg IVP Q12H [facility] Last Admin: 01/12/19 18:00 Dose: 40 mg Rosuvastatin Calcium (Crestor) 10 mg PO HS [facility] Last Admin: 01/11/19 22:38 Dose: 10 mg Trazodone HCl (Desyrel) 100 mg PO HS [facility] Last Admin: 01/11/19 22:38 Dose: 100 mg - Labs Labs: 01/12/19 08:14 01/12/19 08:14 PT 13.5 SECONDS (9.7-12.2) H 01/10/19 06:18 INR 1.2 01/10/19 06:18 APTT 34 SECONDS (21-34) 01/10/19 06:18 Attending/Attestation - Attestation I have personally seen and examined this patient.: Yes I have fully participated in the care of the patient.: Yes I have reviewed all pertinent clinical information, including history, physical exam and plan: Yes Notes (Text): 01/12/19 18:20 This is a late entry. Care of this patient was gone over in detail with resident . Kip Sesay D.O.
--- NOTE | 2019-01-10 10:43 | RAD ---
Chest x-ray two views HISTORY: Cough. COMPARISON: 08/16/2018 Findings: Left central venous catheter tip extending into the SVC. Moderate venous congestion. Right hilar prominence. Elevated right hemidiaphragm. Patchy increased markings at the right hilar region and left lung base. Cardiomegaly. Degenerative changes in the spine and shoulders. Impression: Left central venous catheter tip extending into the SVC. Moderate venous congestion. Right hilar prominence. Elevated right hemidiaphragm. Patchy increased markings at the right hilar region and left lung base. Cardiomegaly. Degenerative changes in the spine and shoulders.
[2019-01-10] MEDS: Piperacillin/Tazobact 3.375 GM in Sodium Chloride 100 ML IVPB SCH ×3 (11:05→21:16)
--- NOTE | 2019-01-10 11:12 | PCM.PSYCH ---
Initial Psychiatric Evaluation - Initial Psychiatric Evaluation Type of Admission: Voluntary Legal Status: Capacity Chief Complaint (in patient's own words): "Anxious" History of Present Illness and Precipitating Events: This is a 58 year old female, single with 5 children, unemployed on disability, living with her granddaughter and daughter presenting to the hospital for a lupus flare. Psych was consulted to rule out depression. Patient states she came to the hospital because of complications from her lupus arthritis causing severe pain. Patient states her mood is currently horrible since she ran out of her Tylenol with codeine pain medication 1 week ago. She is feeling down and having trouble sleeping but denies anxiety or suicidal ideations. Patient states she wants to live because of her 9 grandchildren. She admits to feeling depressed but not severe or too long. She had had depression and panic attacks in the past though. Patient reports diffuse muscle pain and weakness. She denies suicidal or homicidal ideations, auditory or visual hallucinations, or paranoia at this time. Patient denies alcohol, marijuana, cigarette, or drug abuse. Patient reports marijuana and cocaine use with last use 9 years ago. Psych Hx: major depressive disorder recurrent severe without psychotic features, suicidal ideations many years ago Fam Psych: denies PMHx: CHF, HTN, COPD, TEJA, lupus, RA, CAD Meds: trazodone, Cymbalta 60 mg, Tylenol with codeine No.4 Allergies: denies SurgHx: IVC filter, lest chest portocath for IV meds, tonsillectomy, , cholecystectomy Current Medications: Active Medications Generic Name Dose Route Start Last Admin Trade Name [place]ble PRN Reason Stop Dose Admin Acetaminophen/Codeine Phosphate 1 ea 01/10/19 10:20 Tylenol/Codeine 300 Mg/30 Mg PO Q12 PRN Pain, moderate (4-7) Albuterol 2 puff 01/10/19 01:58 Ventolin Hfa 90 Mcg/Actuation (8 G) INH RQ6 PRN Shortness of Breath Albuterol/Ipratropium 3 ml 01/10/19 11:00 Duoneb 3 Mg/0.5 Mg (3 Ml) Ud INH 01/11/19 11:01 RQ6 TC Alprazolam 0.5 mg 01/10/19 09:56 01/10/19 10:55 Xanax PO 0.5 mg Q8H PRN Administration Anxiety Azithromycin 500 mg 01/10/19 10:00 01/10/19 10:55 Zithromax PO 500 mg DAILY [facility] Administration Protocol Calcium Carbonate 500 mg 01/10/19 10:00 01/10/19 10:55 Oscal PO 500 mg DAILY [facility] Administration Ciprofloxacin 400 mg 01/10/19 10:00 Cipro PO Q5H [facility] Protocol Digoxin 0.125 mg 01/10/19 18:00 Digoxin PO DAILY@1800 [facility] Duloxetine HCl 90 mg 01/10/19 10:00 Cymbalta PO DAILY [facility] Folic Acid 1 mg 01/10/19 10:00 01/10/19 10:55 Folic Acid PO 1 mg DAILY [facility] Administration Heparin Sodium (Porcine) 5,000 units 01/10/19 06:00 Heparin SC Q8 [facility] Hydroxychloroquine Sulfate 200 mg 01/10/19 10:00 Plaquenil PO BID [facility] Protocol Ceftriaxone Sodium 1 gm/ 100 mls @ 100 mls/hr 01/10/19 00:15 01/10/19 02:16 Sodium Chloride IVPB 100 mls/hr Q12H [facility] Administration Protocol Piperacillin Sod/Tazobactam 100 mls @ 200 mls/hr 01/10/19 10:00 01/10/19 11:05 Sod 3.375 gm/ Sodium Chloride IVPB 200 mls/hr Q6H [facility] Administration Protocol Methotrexate 15 mg 01/14/19 10:00 Methotrexate PO QWK [facility] Methylprednisolone 40 mg 01/10/19 10:15 Solu-Medrol IVP Q8H [facility] Oseltamivir Phosphate 75 mg 01/10/19 10:30 01/10/19 11:10 Tamiflu Cap PO 01/15/19 10:17 75 mg BID [facility] Administration Protocol Rosuvastatin Calcium 10 mg 01/10/19 22:00 Crestor PO HS [facility] Trazodone HCl 100 mg 01/10/19 22:00 Desyrel PO HS [facility] Past Psychiatric History - Past Psychiatric History Previous Treatment History: Intensive Outpatient Pertinent Medical Hx (Current Medical&Sleep Prob, Allergies): Allergies Allergy/AdvReac Type Severity Reaction Status Date / Time hydromorphone HCl Allergy Severe ANAPHYLAXIS Verified 10/25/18 14:30 [From Dilaudid] meperidine HCl [From Demerol] Allergy Severe ANAPHYLAXIS Verified 10/25/18 14:30 ALPRAZolam [Xanax] 1 mg PO 10/25/18 Acetaminophen with Codeine [Tylenol with Codeine No. 4 300 mg-60 mg] 1 tab PO 10/25/18 Calcium 500 + Vit D Caplet 10/25/18 DULoxetine [Cymbalta] 60 mg PO 10/25/18 Digoxin [Lanoxin] 125 mcg PO 10/25/18 Folic Acid 1 mg PO 10/25/18 Hydroxychloroquine Sulfate [Plaquenil] 200 mg PO 10/25/18 Methotrexate 2.5 mg PO 10/25/18 Pantoprazole Sodium [Protonix] 20 mg PO 10/25/18 Rosuvastatin Calcium 10 mg PO 10/25/18 Ventolin HFA 90 mcg/actuation (8 g) 1 inh INH PRN PRN 10/25/18 traZODone [trazodone Hydrochloride] 100 mg PO 10/25/18 Review of Systems - Psychiatric Psychiatric: Abnormal Sleep Pattern, Anhedonia, Anxiety, Change in Appetite, Depression (mild), Difficulty Concentrating. absent: Homicidal Ideation, Paranoia, Suicidal Ideation Mental Status Examination - Personal Presentation Personal Presentation: Looks stated age - Affect Affect: Constricted - Motor Activity Motor Activity: Calm - Reliability in Providing Information Reliability in Providing Information: Good - Speech Speech: Organized - Mood Mood: Depressed, Anxious - Formal Thought Process Formal Thought Process: No Impairment - Cognitive Functions Orientation: Person, Place, Situation, Time Sensorium: Alert Attention/Concentration: Easily distracted Estimate of Intelligence: Average Judgement: Intact, as evidence by: Insight regarding need for hospitalization Memory: Recent intact, as evidence by: Ability to recall events of the day, Remote intact, as evidenced by: Abilit to recall sig. life events - Risk Risk: Diminished functioning - Strength & Assets Inventory Strength & Assets Inventory: Cooperative - Limitations Limitations: Other DSM 5 DX - DSM 5 DSM 5 Diagnosis: Major depression, recurrent, moderate CORA Panic d/o - Recommended/Plan of Treatment Treatment Recommendations and Plan of Treatment: In crease Cymbalta for anxiety, depression, and pain Trazodone for sleep Refer to [facility] for outpatient psych Support and psychoed 32 minutes
[2019-01-10] MEDS: Albuterol-Ipratrop 3 mg / 0.5 (3 ml) UD INH SCH ×3 (11:30→19:36)
[2019-01-10] MEDS: MethylPREDNISolone 40 mg Vial IVP SCH ×2 (12:57→21:16)
[2019-01-10] MEDS ORDERED: Ciprofloxacin 400mg/200ml D5W 400 MG/200 ML BAG IVPB SCH (13:00)
--- NOTE | 2019-01-10 14:49 | CP.PCM.CON ---
History of Present Illness - History of Present Illness History of Present Illness: dictated Past Patient History - Infectious Disease Hx of Infectious Diseases: None - Past Medical History & Family History Past Medical History?: Yes - Past Social History Smoking Status: Light Smoker < 10 Cigarettes Daily - CARDIAC Hx Cardia Arrhythmia: Yes Hx Congestive Heart Failure: Yes Hx Hypercholesterolemia: Yes Hx Hypertension: Yes - PULMONARY Hx Asthma: Yes Hx Chronic Obstructive Pulmonary Disease (COPD): Yes Hx Emphysema: Yes Hx Sleep Apnea: Yes - NEUROLOGICAL Hx Neurological Disorder: No - HEENT Hx HEENT Problems: No - RENAL Hx Chronic Kidney Disease: No - ENDOCRINE/METABOLIC Hx Diabetes Mellitus Type 2: Yes Hx Systemic Lupus Erythematosus: Yes - HEMATOLOGICAL/ONCOLOGICAL Hx Anemia: Yes - INTEGUMENTARY Hx Dermatological Problems: No - MUSCULOSKELETAL/RHEUMATOLOGICAL Hx Arthritis: Yes Hx Osteoporosis: Yes Hx Rheumatoid Arthritis: Yes - GASTROINTESTINAL Hx Gastrointestinal Disorders: No - GENITOURINARY/GYNECOLOGICAL Hx Genitourinary Disorders: No - PSYCHIATRIC Hx Anxiety: Yes Hx Bipolar Disorder: Yes Hx Depression: Yes Hx Schizophrenia: Yes Hx Substance Use: No - SURGICAL HISTORY Hx Cholecystectomy: Yes Hx Tonsillectomy: Yes - ANESTHESIA Hx Anesthesia: Yes Hx Anesthesia Reactions: No Hx Malignant Hyperthermia: No Meds Allergies/Adverse Reactions: Allergies Allergy/AdvReac Type Severity Reaction Status Date / Time hydromorphone HCl Allergy Severe ANAPHYLAXIS Verified 10/25/18 14:30 [From Dilaudid] meperidine HCl [From Demerol] Allergy Severe ANAPHYLAXIS Verified 10/25/18 14:30 - Medications Medications: Current Medications Acetaminophen/Codeine Phosphate (Tylenol/Codeine 300 Mg/30 Mg) 1 ea PO Q12 PRN PRN Reason: Pain, moderate (4-7) Albuterol (Ventolin Hfa 90 Mcg/Actuation (8 G)) 2 puff INH RQ6 PRN PRN Reason: Shortness of Breath Albuterol/Ipratropium (Duoneb 3 Mg/0.5 Mg (3 Ml) Ud) 3 ml INH RQ6 TC Stop: 01/11/19 11:01 Last Admin: 01/10/19 13:45 Dose: 3 ml Alprazolam (Xanax) 0.5 mg PO Q8H PRN PRN Reason: Anxiety Last Admin: 01/10/19 10:55 Dose: 0.5 mg Azithromycin (Zithromax) 500 mg PO DAILY TC; Protocol Last Admin: 01/10/19 10:55 Dose: 500 mg Calcium Carbonate (Oscal) [address] [facility] Last Admin: 01/10/19 10:55 Dose: 500 mg Digoxin (Digoxin) 0.125 mg PO DAILY@1800 TC Duloxetine HCl (Cymbalta) [address] [facility] Last Admin: 01/10/19 10:55 Dose: 90 mg Folic Acid (Folic Acid) [address] [facility] Last Admin: 01/10/19 10:55 Dose: 1 mg Heparin Sodium (Porcine) (Heparin) 5,000 units SC Q8 TC Last Admin: 01/10/19 13:48 Dose: 5,000 units Hydroxychloroquine Sulfate (Plaquenil) [address] [facility]; Protocol Last Admin: 01/10/19 10:55 Dose: 200 mg Ceftriaxone Sodium 1 gm/ (Sodium Chloride) 100 mls @ 100 mls/hr IVPB Q12H TC; Protocol Last Admin: 01/10/19 12:45 Dose: 100 mls/hr Piperacillin Sod/Tazobactam (Sod 3.375 gm/ Sodium Chloride) 100 mls @ 200 mls/hr IVPB Q6H TC; Protocol Last Admin: 01/10/19 11:05 Dose: 200 mls/hr Ciprofloxacin (Cipro 400mg/200ml Dsw) 400 mg in 200 mls @ 133 mls/hr IVPB Q12H TC; Protocol Last Admin: 01/10/19 13:48 Dose: 133 mls/hr Methotrexate (Methotrexate) [address] [facility] Methylprednisolone (Solu-Medrol) [address] [facility] Last Admin: 01/10/19 12:57 Dose: 40 mg Oseltamivir Phosphate (Tamiflu Cap) [address] [facility]; Protocol Stop: 01/15/19 10:17 Last Admin: 01/10/19 11:10 Dose: 75 mg Rosuvastatin Calcium (Crestor) 10 mg PO HS TC Trazodone HCl (Desyrel) [address] [facility] Results - Vital Signs Recent Vital Signs: Last Vital Signs Temp 98.5 F 01/10/19 08:00 Pulse 94 H 01/10/19 11:42 Resp 20 01/10/19 08:00 BP 146/85 01/10/19 08:00 Pulse Ox 93 L 01/10/19 08:00 - Labs Result Diagrams: 01/10/19 06:18 01/10/19 06:18 Labs: Laboratory Results - last 24 hr 01/09/19 01/09/19 01/09/19 23:18 23:18 23:18 WBC 26.8 H D RBC 4.54 Hgb 11.8 Hct 36.9 MCV 81.2 D MCH 26.0 L MCHC 32.0 L RDW 17.2 H Plt Count 291 MPV 7.9 Neut % (Auto) 82.2 H Lymph % (Auto) 9.8 L [place] % (Auto) 6.7 Eos % (Auto) 0.6 Baso % (Auto) 0.7 Neut # (Auto) 22.1 H Lymph # (Auto) 2.6 [place] # (Auto) 1.8 H Eos # (Auto) 0.2 Baso # (Auto) 0.2 Neutrophils % (Manual) 79 H Band Neutrophils % 1 Lymphocytes % (Manual) 9 L Monocytes % (Manual) 10 Eosinophils % (Manual) 1 Platelet Estimate Normal Anisocytosis (manual) Slight Stomatocytes PT INR APTT pO2 VBG pH VBG pCO2 VBG HCO3 VBG Total CO2 VBG O2 Sat (Calc) VBG Base Excess VBG Potassium Glucose Lactate Sodium 137 Potassium 3.7 Chloride 99 Carbon Dioxide 29 Anion Gap 13 BUN 16 Creatinine 0.8 Est GFR ( Amer) > 60 Est GFR (Non-Af Amer) > 60 Random Glucose 148 H Calcium 8.9 Phosphorus 2.2 L Magnesium 2.0 Total Bilirubin 0.5 AST 55 H D ALT 34 Alkaline Phosphatase 114 Total Creatine Kinase Total Protein 7.8 Albumin 4.2 Globulin 3.6 Albumin/Globulin Ratio 1.2 Lipase Venous Blood Potassium Urine Color Urine Clarity Urine pH Ur Specific [place] Urine Protein Urine Glucose (UA) Urine Ketones Urine Blood Urine Nitrate Urine Bilirubin Urine Urobilinogen Ur Leukocyte Esterase Urine WBC (Auto) Urine RBC (Auto) Ur Squamous Epith Cells Hyaline Casts Salicylates < 1.0 Urine Opiates Screen Urine Methadone Screen Acetaminophen < 10.0 L Ur Barbiturates Screen Ur Phencyclidine Scrn Ur Amphetamines Screen U Benzodiazepines Scrn U Oth Cocaine Metabols U Cannabinoids Screen Alcohol, Quantitative < 10 Hepatitis A IgM Ab Hep Bs Antigen Hep B Core IgM Ab Hepatitis C Antibody HIV 1&2 Antibody Screen Influenza Typ A,B (EIA) 01/09/19 01/10/19 01/10/19 23:58 01:19 01:19 WBC RBC Hgb Hct MCV MCH MCHC RDW Plt Count MPV Neut % (Auto) Lymph % (Auto) [place] % (Auto) Eos % (Auto) Baso % (Auto) Neut # (Auto) Lymph # (Auto) [place] # (Auto) Eos # (Auto) Baso # (Auto) Neutrophils % (Manual) Band Neutrophils % Lymphocytes % (Manual) Monocytes % (Manual) Eosinophils % (Manual) Platelet Estimate Anisocytosis (manual) Stomatocytes PT INR APTT pO2 VBG pH VBG pCO2 VBG HCO3 VBG Total CO2 VBG O2 Sat (Calc) VBG Base Excess VBG Potassium Glucose Lactate Sodium Potassium Chloride Carbon Dioxide Anion Gap BUN Creatinine Est GFR ( Amer) Est GFR (Non-Af Amer) Random Glucose Calcium Phosphorus Magnesium Total Bilirubin AST ALT Alkaline Phosphatase Total Creatine Kinase Total Protein Albumin Globulin Albumin/Globulin Ratio Lipase Venous Blood Potassium Urine Color [place] Urine Clarity Hazy Urine pH 5.0 Ur Specific [place] 1.031 H Urine Protein 2+ H Urine Glucose (UA) Normal Urine Ketones Negative Urine Blood Negative Urine Nitrate Negative Urine Bilirubin Negative Urine Urobilinogen Normal Ur Leukocyte Esterase Neg Urine WBC (Auto) 2 Urine RBC (Auto) 2 Ur Squamous Epith Cells 2 Hyaline Casts 0-2 Salicylates Urine Opiates Screen Positive H Urine Methadone Screen Negative Acetaminophen Ur Barbiturates Screen Negative Ur Phencyclidine Scrn Negative Ur Amphetamines Screen Negative U Benzodiazepines Scrn Negative U Oth Cocaine Metabols Negative U Cannabinoids Screen Negative Alcohol, Quantitative Hepatitis A IgM Ab Hep Bs Antigen Hep B Core IgM Ab Hepatitis C Antibody HIV 1&2 Antibody Screen Influenza Typ A,B (EIA) Negative for flu a/b 01/10/19 01/10/19 01/10/19 01:19 01:26 06:18 WBC 25.4 H RBC 4.78 Hgb 12.3 Hct 38.9 MCV 81.4 MCH 25.6 L MCHC 31.5 L RDW 17.7 H Plt Count 303 MPV 7.8 Neut % (Auto) 91.4 H Lymph % (Auto) 5.7 L [place] % (Auto) 2.1 Eos % (Auto) 0.4 Baso % (Auto) 0.4 Neut # (Auto) 23.2 H Lymph # (Auto) 1.5 [place] # (Auto) 0.5 Eos # (Auto) 0.1 Baso # (Auto) 0.1 Neutrophils % (Manual) 88 H Band Neutrophils % Lymphocytes % (Manual) 7 L Monocytes % (Manual) 3 Eosinophils % (Manual) 2 Platelet Estimate Normal Anisocytosis (manual) Slight Stomatocytes Slight PT INR APTT pO2 49 VBG pH 7.48 H VBG pCO2 41 VBG HCO3 29.6 VBG Total CO2 31.8 H VBG O2 Sat (Calc) 89.4 H VBG Base Excess 6.4 H VBG Potassium 3.9 Glucose 151 H Lactate 1.9 Sodium 138.0 Potassium Chloride 105.0 Carbon Dioxide Anion Gap BUN Creatinine Est GFR ( Amer) Est GFR (Non-Af Amer) Random Glucose Calcium Phosphorus Magnesium Total Bilirubin AST ALT Alkaline Phosphatase Total Creatine Kinase 204 H Total Protein Albumin Globulin Albumin/Globulin Ratio Lipase 27 Venous Blood Potassium 3.9 Urine Color Urine Clarity Urine pH Ur Specific [place] Urine Protein Urine Glucose (UA) Urine Ketones Urine Blood Urine Nitrate Urine Bilirubin Urine Urobilinogen Ur Leukocyte Esterase Urine WBC (Auto) Urine RBC (Auto) Ur Squamous Epith Cells Hyaline Casts Salicylates Urine Opiates Screen Urine Methadone Screen Acetaminophen Ur Barbiturates Screen Ur Phencyclidine Scrn Ur Amphetamines Screen U Benzodiazepines Scrn U Oth Cocaine Metabols U Cannabinoids Screen Alcohol, Quantitative Hepatitis A IgM Ab Hep Bs Antigen Hep B Core IgM Ab Hepatitis C Antibody HIV 1&2 Antibody Screen Influenza Typ A,B (EIA) 01/10/19 01/10/19 01/10/19 06:18 06:18 06:18 WBC RBC Hgb Hct MCV MCH MCHC RDW Plt Count MPV Neut % (Auto) Lymph % (Auto) [place] % (Auto) Eos % (Auto) Baso % (Auto) Neut # (Auto) Lymph # (Auto) [place] # (Auto) Eos # (Auto) Baso # (Auto) Neutrophils % (Manual) Band Neutrophils % Lymphocytes % (Manual) Monocytes % (Manual) Eosinophils % (Manual) Platelet Estimate Anisocytosis (manual) Stomatocytes PT INR APTT pO2 VBG pH VBG pCO2 VBG HCO3 VBG Total CO2 VBG O2 Sat (Calc) VBG Base Excess VBG Potassium Glucose Lactate Sodium 137 Potassium 3.9 Chloride 102 Carbon Dioxide 26 Anion Gap 13 BUN 17 Creatinine 0.8 Est GFR ( Amer) > 60 Est GFR (Non-Af Amer) > 60 Random Glucose 258 H D Calcium 8.8 Phosphorus Magnesium Total Bilirubin 0.7 AST 47 H ALT 33 Alkaline Phosphatase 130 H Total Creatine Kinase Total Protein 7.9 Albumin 4.2 Globulin 3.7 Albumin/Globulin Ratio 1.1 Lipase Venous Blood Potassium Urine Color Urine Clarity Urine pH Ur Specific [place] Urine Protein Urine Glucose (UA) Urine Ketones Urine Blood Urine Nitrate Urine Bilirubin Urine Urobilinogen Ur Leukocyte Esterase Urine WBC (Auto) Urine RBC (Auto) Ur Squamous Epith Cells Hyaline Casts Salicylates Urine Opiates Screen Urine Methadone Screen Acetaminophen Ur Barbiturates Screen Ur Phencyclidine Scrn Ur Amphetamines Screen U Benzodiazepines Scrn U Oth Cocaine Metabols U Cannabinoids Screen Alcohol, Quantitative Hepatitis A IgM Ab Negative Hep Bs Antigen Negative Hep B Core IgM Ab Negative Hepatitis C Antibody Negative HIV 1&2 Antibody Screen Negative Influenza Typ A,B (EIA) 01/10/19 06:18 WBC RBC Hgb Hct MCV MCH MCHC RDW Plt Count MPV Neut % (Auto) Lymph % (Auto) [place] % (Auto) Eos % (Auto) Baso % (Auto) Neut # (Auto) Lymph # (Auto) [place] # (Auto) Eos # (Auto) Baso # (Auto) Neutrophils % (Manual) Band Neutrophils % Lymphocytes % (Manual) Monocytes % (Manual) Eosinophils % (Manual) Platelet Estimate Anisocytosis (manual) Stomatocytes PT 13.5 H INR 1.2 APTT 34 pO2 VBG pH VBG pCO2 VBG HCO3 VBG Total CO2 VBG O2 Sat (Calc) VBG Base Excess VBG Potassium Glucose Lactate Sodium Potassium Chloride Carbon Dioxide Anion Gap BUN Creatinine Est GFR ( Amer) Est GFR (Non-Af Amer) Random Glucose Calcium Phosphorus Magnesium Total Bilirubin AST ALT Alkaline Phosphatase Total Creatine Kinase Total Protein Albumin Globulin Albumin/Globulin Ratio Lipase Venous Blood Potassium Urine Color Urine Clarity Urine pH Ur Specific [place] Urine Protein Urine Glucose (UA) Urine Ketones Urine Blood Urine Nitrate Urine Bilirubin Urine Urobilinogen Ur Leukocyte Esterase Urine WBC (Auto) Urine RBC (Auto) Ur Squamous Epith Cells Hyaline Casts Salicylates Urine Opiates Screen Urine Methadone Screen Acetaminophen Ur Barbiturates Screen Ur Phencyclidine Scrn Ur Amphetamines Screen U Benzodiazepines Scrn U Oth Cocaine Metabols U Cannabinoids Screen Alcohol, Quantitative Hepatitis A IgM Ab Hep Bs Antigen Hep B Core IgM Ab Hepatitis C Antibody HIV 1&2 Antibody Screen Influenza Typ A,B (EIA)
[2019-01-10] MEDS: Lactobacillus Acidophilus 500 MU Cap PO SCH (17:35)
[2019-01-10] MEDS: Digoxin 125 mcg (0.125 mg) Tab PO SCH (17:38)
[2019-01-10] MEDS: Acetaminophen-Codeine 300/30 mg Tab PO PRN (19:06)
[2019-01-11] MEDS: Albuterol-Ipratrop 3 mg / 0.5 (3 ml) UD INH SCH ×4 (01:54→19:28)
[2019-01-11] MEDS: MethylPREDNISolone 40 mg Vial IVP SCH ×3 (03:22→21:00)
[2019-01-11] MEDS: Piperacillin/Tazobact 3.375 GM in Sodium Chloride 100 ML IVPB SCH ×4 (03:22→22:42)
--- NOTE | 2019-01-11 07:10 | CP.PCM.PN ---
<Aldair Falk - Last Filed: 01/11/19 11:02> Subjective - Date & Time of Evaluation Date of Evaluation: 01/11/19 Time of Evaluation: 07:10 - Subjective Subjective: PGY-1 Medicine Progress Note for Dr. Sesay Patient seen and examined at bedside this AM, eating breakfast comfortably in no acute distress. No acute overnight events reported. Patient endorses improvement in shortness of breath and cold-like symptoms. Generalized joint pain/aches are improved this morning as well. Continuing empiric abx treatment and awaiting further ID recs, finalized blood cultures. Objective - Vital Signs/Intake and Output Vital Signs (last 24 hours): Temp Pulse Resp BP Pulse Ox 98 F 100 H 20 149/75 94 L 01/10/19 23:44 01/10/19 23:44 01/10/19 23:44 01/10/19 23:44 01/10/19 23:44 - Medications Medications: Current Medications Acetaminophen/Codeine Phosphate (Tylenol/Codeine 300 Mg/30 Mg) 1 ea PO Q12 PRN PRN Reason: Pain, moderate (4-7) Last Admin: 01/10/19 19:06 Dose: 1 ea Albuterol (Ventolin Hfa 90 Mcg/Actuation (8 G)) 2 puff INH RQ6 PRN PRN Reason: Shortness of Breath Albuterol/Ipratropium (Duoneb 3 Mg/0.5 Mg (3 Ml) Ud) 3 ml INH RQ6 [facility] Stop: 01/11/19 11:01 Last Admin: 01/11/19 01:54 Dose: Not Given Alprazolam (Xanax) 0.5 mg PO Q8H PRN PRN Reason: Anxiety Last Admin: 01/10/19 19:35 Dose: 0.5 mg Azithromycin (Zithromax) 500 mg PO DAILY [facility]; Protocol Last Admin: 01/10/19 10:55 Dose: 500 mg Calcium Carbonate (Oscal) 500 mg PO DAILY [facility] Last Admin: 01/10/19 10:55 Dose: 500 mg Digoxin (Digoxin) 0.125 mg PO DAILY@1800 [facility] Last Admin: 01/10/19 17:38 Dose: 0.125 mg Duloxetine HCl (Cymbalta) 90 mg PO DAILY [facility] Last Admin: 01/10/19 10:55 Dose: 90 mg Folic Acid (Folic Acid) 1 mg PO DAILY [facility] Last Admin: 01/10/19 10:55 Dose: 1 mg Heparin Sodium (Porcine) (Heparin) 5,000 units SC Q8 [facility] Last Admin: 01/11/19 05:07 Dose: 5,000 units Hydroxychloroquine Sulfate (Plaquenil) 200 mg PO BID [facility]; Protocol Last Admin: 01/10/19 17:35 Dose: 200 mg Piperacillin Sod/Tazobactam (Sod 3.375 gm/ Sodium Chloride) 100 mls @ 200 mls/hr IVPB Q6H [facility]; Protocol Last Admin: 01/11/19 03:22 Dose: 200 mls/hr Lactobacillus Acidophilus (Lactobacillus) 1 cap PO BID [facility] Last Admin: 01/10/19 17:35 Dose: 1 cap Methotrexate (Methotrexate) 15 mg PO QWK [facility] Methylprednisolone (Solu-Medrol) 40 mg IVP Q8H [facility] Last Admin: 01/11/19 03:22 Dose: 40 mg Oseltamivir Phosphate (Tamiflu Cap) 75 mg PO BID [facility]; Protocol Stop: 01/15/19 10:17 Last Admin: 01/10/19 17:35 Dose: 75 mg Rosuvastatin Calcium (Crestor) 10 mg PO HS [facility] Last Admin: 01/10/19 21:16 Dose: 10 mg Trazodone HCl (Desyrel) 100 mg PO HS [facility] Last Admin: 01/10/19 21:17 Dose: 100 mg - Labs Labs: 01/10/19 06:18 01/10/19 06:18 PT 13.5 SECONDS (9.7-12.2) H 01/10/19 06:18 INR 1.2 01/10/19 06:18 APTT 34 SECONDS (21-34) 01/10/19 06:18 - Constitutional Appears: No Acute Distress - Head Exam Head Exam: ATRAUMATIC, NORMAL INSPECTION, NORMOCEPHALIC - Eye Exam Eye Exam: EOMI, Normal appearance, PERRL Pupil Exam: NORMAL ACCOMODATION - ENT Exam ENT Exam: Mucous Membranes Moist, Normal Exam Additional comments: slightly erythematous nasal turbinates erythematous pharynx noted, no exudates post-nasal drip - Neck Exam Neck Exam: Full ROM, Lymphadenopathy, Normal Inspection, Tenderness Additional comments: palpable enlarged lymph node along R anterior cervical chain, TTP - Respiratory Exam Respiratory Exam: absent: Accessory Muscle Use, Rales, Respiratory Distress, Stridor - Cardiovascular Exam Cardiovascular Exam: Tachycardia, +S1, +S2 - GI/Abdominal Exam GI & Abdominal Exam: Soft, Normal Bowel Sounds. absent: Distended, Firm, Guarding, Rigid, Tenderness, Rebound Additional comments: obese - Extremities Exam Extremities Exam: Full ROM, Normal Capillary Refill, Normal Inspection, Pedal Edema (trace pitting edema). absent: Calf Tenderness - Back Exam Back Exam: NORMAL INSPECTION - Neurological Exam Neurological Exam: Alert, Awake, Oriented x3 - Skin Skin Exam: Dry, Intact, Normal Color, Warm Assessment and Plan - Assessment and Plan (Free Text) Assessment: 58 year old female with PMhx including lupus, RA, depression, anxiety, COPD, asthma, chronic DVT LE s/p IVC filter presenting with significantly eleva red leukocytosis, generalized body aches/pain, sob. Plan: Leukocytosis -WBC downtrending, remains elevated -CXR (01/10): Moderate venous congestion. R hilar prominence, elevated R hemidiaphragm. Patchy increased markings at the R hilar region and L lung base. Cardiomegaly. Degenerative changes in the spine and shoulder. -UA - 2+ blood, no LE, WBCs -Lipase wnl -UDS: positive for opiates -patient takes tylenol with codeine for pain at home, given to her by her veneer sorter -influenza negative -hepatitis panel negative -HIV negative -Blood culture prelim: gram positive cocci -f/u final report -F/U Infectious Disease (Dr. Spann) recs -Given IC state, patient would benefit from prophylactic anti-pseudomonal coverage with both a beta-lactam and fluroquinolone agent -Ciprofloxacin 400 IV q5h lily -Zosyn 3.375 q6h lily -Azithromycin 500 mg PO daily Shortness of breath Hx of Asthma, COPD -wheezing still noted, though improved from day prior -O2 via NC prn -duonebs q6h lily for another 24 hrs today (01/11) -solumedrol 40 mg IV q8h lily -ventolin 2 puff q6h PRN Hyperkalemia -K 5.3 today, not hemolyzed -kayexalate 30 gm given, continue to monitor Hx of Lupus Hx of Rheumatoid Arthritis -calcium carbonate 500 daily -folic Acid 1 mg PO daily -hydroxychloroquine 200 mg PO BID -methotrexate 15 mg PO qwk -Tylenol #4 300/30 1 tab Q12H PRN for pain Hx of CHF -digoxin 0.125mg PO daily -Echo (03/2018): mild concentric LVH, EF 55-60%, LV diastolic function is abnormal, trace aortic regurgitation -strict I/Os Hx of HLD -crestor 10 mg PO HS Hx of chronic DVT, RLE- s/p IVC filter -Meds from previous admission held pending confirmation - Not on list of home medications -lovenox 40 mg SC daily -plavix 7 mg PO daily Major Depression Suicidal ideation -expressed suicidal ideation to ED doctor -1:1 on board -Psych recs (Dr. Orellana) appreciated -Cymbalta 90 mg PO daily -Xanax 0.5mg PO q8 prn PPx, Diet, Disposition -DVT ppx: scds, heparin 5000 U SC Q8 -GI ppx: lactobacillus -Diet: HHD Case discussed with Dr. Lázaro Falk DO, PGY-1 <Kip Sesay - Last Filed: 01/12/19 18:20> Objective - Vital Signs/Intake and Output Vital Signs (last 24 hours): Temp Pulse Resp BP Pulse Ox 98.0 F 94 H 20 135/72 95 01/12/19 16:00 01/12/19 16:00 01/12/19 16:00 01/12/19 16:00 01/12/19 16:57 - Medications Medications: Current Medications Acetaminophen/Codeine Phosphate (Tylenol/Codeine 300 Mg/30 Mg) 1 ea PO Q12 PRN PRN Reason: Pain, moderate (4-7) Last Admin: 01/11/19 16:33 Dose: 1 ea Albuterol (Ventolin Hfa 90 Mcg/Actuation (8 G)) 2 puff INH RQ6 PRN PRN Reason: Shortness of Breath Albuterol/Ipratropium (Duoneb 3 Mg/0.5 Mg (3 Ml) Ud) 3 ml INH RQ6 LILY Stop: 01/13/19 14:01 Last Admin: 01/12/19 13:30 Dose: 3 ml Alprazolam (Xanax) 0.5 mg PO Q8H PRN PRN Reason: Anxiety Last Admin: 01/12/19 18:04 Dose: 0.5 mg Calcium Carbonate (Oscal) 500 mg PO DAILY [facility] Last Admin: 01/12/19 10:28 Dose: 500 mg Dextrose (Dextrose 50% Inj) 0 ml IV STAT PRN; Protocol PRN Reason: Hypoglycemia Protocol Dextrose (Glutose 15) 0 gm PO ONCE PRN; Protocol PRN Reason: Hypoglycemia Protocol Digoxin (Digoxin) 0.125 mg PO DAILY@1800 [facility] Last Admin: 01/12/19 18:04 Dose: 0.125 mg Duloxetine HCl (Cymbalta) 90 mg PO DAILY [facility] Last Admin: 01/12/19 10:27 Dose: 90 mg Fluticasone/Vilanterol (Breo Ellipta 200-25 Mcg Inh) 1 puff INH RQD [facility] Last Admin: 01/12/19 07:50 Dose: 1 puff Folic Acid (Folic Acid) 1 mg PO DAILY [facility] Last Admin: 01/12/19 10:28 Dose: 1 mg Glucagon (Glucagen Diagnostic Kit) 0 mg IM STAT PRN; Protocol PRN Reason: Hypoglycemia Protocol Heparin Sodium (Porcine) (Heparin) 5,000 units SC Q8 [facility] Last Admin: 01/12/19 16:32 Dose: Not Given Hydroxychloroquine Sulfate (Plaquenil) 200 mg PO BID [facility]; Protocol Last Admin: 01/12/19 18:01 Dose: 200 mg Piperacillin Sod/Tazobactam (Sod 3.375 gm/ Sodium Chloride) 100 mls @ 200 mls/hr IVPB Q6H [facility]; Protocol Last Admin: 01/12/19 10:28 Dose: 200 mls/hr Vancomycin HCl 1,000 mg/ (Sodium Chloride) 250 mls @ 166.6 mls/hr IVPB Q12H [facility]; Protocol Last Admin: 01/12/19 12:14 Dose: 166.6 mls/hr Dextrose (Dextrose 5% In Water 1000 Ml) 1,000 mls @ 0 mls/hr IV .Q0M PRN; Protocol PRN Reason: Hypoglycemia Protocol Insulin Human Regular (Novolin R) 0 unit SC ACHS [facility]; Protocol Last Admin: 01/12/19 18:01 Dose: 8 unit Lactobacillus Acidophilus (Lactobacillus) 1 cap PO BID [facility] Last Admin: 01/12/19 18:00 Dose: 1 cap Methotrexate (Methotrexate) 15 mg PO QWK [facility] Methylprednisolone (Solu-Medrol) 40 mg IVP Q12H [facility] Last Admin: 01/12/19 18:00 Dose: 40 mg Rosuvastatin Calcium (Crestor) 10 mg PO HS [facility] Last Admin: 01/11/19 22:38 Dose: 10 mg Trazodone HCl (Desyrel) 100 mg PO [facility] Last Admin: 01/11/19 22:38 Dose: 100 mg - Labs Labs: 01/12/19 08:14 01/12/19 08:14 PT 13.5 SECONDS (9.7-12.2) H 01/10/19 06:18 INR 1.2 01/10/19 06:18 APTT 34 SECONDS (21-34) 01/10/19 06:18 Attending/Attestation - Attestation I have personally seen and examined this patient.: Yes I have fully participated in the care of the patient.: Yes I have reviewed all pertinent clinical information, including history, physical exam and plan: Yes Notes (Text): 01/12/19 18:19 This is a late entry. Care of this patient was gone over in detail with resident Dr. Falk. Kip Sesay D.O.
[2019-01-11 07:21] LABS: BASO # 0.1 K/uL (0.0-0.2); BASO % 0.3 % (0.0-2.0); EOS % 0.1 % (0.0-4.0); HEMOGLOBIN 11.5 g/dL (11.0-16.0); LYMPH # 1.1 K/uL (1.0-4.3); LYMPH % 4.8 % (20.0-40.0); MEAN CELL VOLUME 82.6 fL (81.0-99.0); MEAN CORPUSCULAR HEMOGLOBIN 25.9 pg (27.0-31.0); MEAN CORPUSCULAR HGB CONC 31.3 g/dL (33.0-37.0); MEAN PLATELET VOLUME 8.1 fL (7.2-11.7); MONO # 0.7 K/uL (0.0-0.8); MONO % 3.1 % (0.0-10.0); NEUT # 21.5 K/uL (1.8-7.0); NEUT % 91.7 % (50.0-75.0); PLATELET COUNT 314 K/uL (130-400); RBC 4.43 Mil/uL (3.80-5.20); RED CELL DISTRIBUTION WIDTH 17.8 % (11.5-14.5); WHITE BLOOD COUNT 23.4 K/uL (4.8-10.8)
[2019-01-11 07:54] LABS: ALB/GLOB RATIO 1.1 (1.0-2.1); ALBUMIN 3.9 g/dL (3.5-5.0); ALT/SGPT 31 U/L (9-52); AST/SGOT 29 U/L (14-36); BLOOD UREA NITROGEN 20 mg/dL (7-17); CALCIUM 9.1 mg/dl (8.6-10.4); GFR NON-AFRICAN AMERICAN > 60
[2019-01-11 08:58] LABS: ANISOCYTOSIS SLIGHT; BANDS 1 % (0-2); LYMPHOCYTE 6 % (20-40); MONOCYTE 3 % (0-10); NEUTROPHIL 90 % (50-75); PLATELET ESTIMATE NORMAL (NORMAL); TOTAL CELLS COUNTED 100
[2019-01-11 08:59] LABS: HYPOCHROMIC SLIGHT; POLYCHROMIC SLIGHT
[2019-01-11] MEDS ORDERED: Sod Polystyrene Sulf 15 gm/60 ml Susp PO ONE (09:25)
[2019-01-11 10:19] LABS: B-TYPE NATRIURETIC PEPTIDE 420 pg/mL (0-900)
[2019-01-11] MEDS: Lactobacillus Acidophilus 500 MU Cap PO SCH ×2 (10:34→17:03)
--- NOTE | 2019-01-11 12:39 | PCM.PYCHPN ---
Psychiatric Progress Note - Psychiatric Progress Note Patient seen today, length of contact: 16 min Patient Chief Complaint: "A little better" Problems Identified/Issues Discussed: No new sxs Mood is even No SI, HI and no risk factors at this point No side-effects from meds Support given Chart reviewed Psych will sign off Medication Change: No Medical Record Reviewed: Yes Mental Status Examination - Cognitive Function Orientation: Person, Place, Situation, Time Memory: Intact Attention: WNL Concentration: Poor Association: WNL Fund of Knowledge: WNL - Mood Mood: Depressed, Anxious - Affect Affect: Constricted - Speech Speech: Appropriate - Formal Thought Process Formal Thought Process: No Impairment - Suicidal Ideation Suicidal Ideation: No - Homicidal Ideation Homicidal Ideation: No Goal/Treatment Plan - Goal/Treatment Plan Need for Continued Stay: Other (medical) Progress Toward Problem(s) and Goals/Treatment Plan: Increased Cymbalta for anxiety, depression, and pain Trazodone for sleep Refer to [facility] for outpatient psych Support and psychoed
[2019-01-11] MEDS: Fluticasone-Vilanterol 200/25mcg Diskus INH SCH (13:15)
--- NOTE | 2019-01-11 15:47 | CP.PCM.CON ---
History of Present Illness - History of Present Illness History of Present Illness: dictated Past Patient History - Infectious Disease Hx of Infectious Diseases: None - Past Medical History & Family History Past Medical History?: Yes - Past Social History Smoking Status: Light Smoker < 10 Cigarettes Daily - CARDIAC Hx Cardia Arrhythmia: Yes Hx Congestive Heart Failure: Yes Hx Hypercholesterolemia: Yes Hx Hypertension: Yes - PULMONARY Hx Asthma: Yes Hx Chronic Obstructive Pulmonary Disease (COPD): Yes Hx Emphysema: Yes Hx Sleep Apnea: Yes - NEUROLOGICAL Hx Neurological Disorder: No - HEENT Hx HEENT Problems: No - RENAL Hx Chronic Kidney Disease: No - ENDOCRINE/METABOLIC Hx Diabetes Mellitus Type 2: Yes Hx Systemic Lupus Erythematosus: Yes - HEMATOLOGICAL/ONCOLOGICAL Hx Anemia: Yes - INTEGUMENTARY Hx Dermatological Problems: No - MUSCULOSKELETAL/RHEUMATOLOGICAL Hx Arthritis: Yes Hx Osteoporosis: Yes Hx Rheumatoid Arthritis: Yes - GASTROINTESTINAL Hx Gastrointestinal Disorders: No - GENITOURINARY/GYNECOLOGICAL Hx Genitourinary Disorders: No - PSYCHIATRIC Hx Anxiety: Yes Hx Bipolar Disorder: Yes Hx Depression: Yes Hx Schizophrenia: Yes Hx Substance Use: No - SURGICAL HISTORY Hx Cholecystectomy: Yes Hx Tonsillectomy: Yes - ANESTHESIA Hx Anesthesia: Yes Hx Anesthesia Reactions: No Hx Malignant Hyperthermia: No Meds Allergies/Adverse Reactions: Allergies Allergy/AdvReac Type Severity Reaction Status Date / Time hydromorphone HCl Allergy Severe ANAPHYLAXIS Verified 10/25/18 14:30 [From Dilaudid] meperidine HCl [From Demerol] Allergy Severe ANAPHYLAXIS Verified 10/25/18 14:30 - Medications Medications: Current Medications Acetaminophen/Codeine Phosphate (Tylenol/Codeine 300 Mg/30 Mg) 1 ea PO Q12 PRN PRN Reason: Pain, moderate (4-7) Last Admin: 01/10/19 19:06 Dose: 1 ea Albuterol (Ventolin Hfa 90 Mcg/Actuation (8 G)) 2 puff INH RQ6 PRN PRN Reason: Shortness of Breath Albuterol/Ipratropium (Duoneb 3 Mg/0.5 Mg (3 Ml) Ud) 3 ml INH RQ6 [facility] Stop: 01/12/19 11:02 Last Admin: 01/11/19 13:16 Dose: Not Given Alprazolam (Xanax) 0.5 mg PO Q8H PRN PRN Reason: Anxiety Last Admin: 01/11/19 10:34 Dose: 0.5 mg Azithromycin (Zithromax) 500 mg PO DAILY [facility]; Protocol Last Admin: 01/11/19 10:34 Dose: 500 mg Calcium Carbonate (Oscal) 500 mg PO DAILY [facility] Last Admin: 01/11/19 10:34 Dose: 500 mg Digoxin (Digoxin) 0.125 mg PO DAILY@1800 [facility] Last Admin: 01/10/19 17:38 Dose: 0.125 mg Duloxetine HCl (Cymbalta) 90 mg PO DAILY [facility] Last Admin: 01/11/19 10:34 Dose: 90 mg Fluticasone/Vilanterol (Breo Ellipta 200-25 Mcg Inh) 1 puff INH RQD [facility] Last Admin: 01/11/19 13:15 Dose: Not Given Folic Acid (Folic Acid) 1 mg PO DAILY [facility] Last Admin: 01/11/19 10:34 Dose: 1 mg Heparin Sodium (Porcine) (Heparin) 5,000 units SC Q8 [facility] Last Admin: 01/11/19 13:49 Dose: 5,000 units Hydroxychloroquine Sulfate (Plaquenil) 200 mg PO BID [facility]; Protocol Last Admin: 01/11/19 10:34 Dose: 200 mg Piperacillin Sod/Tazobactam (Sod 3.375 gm/ Sodium Chloride) 100 mls @ 200 mls/hr IVPB Q6H [facility]; Protocol Last Admin: 01/11/19 10:35 Dose: 200 mls/hr Vancomycin HCl 1,000 mg/ (Sodium Chloride) 250 mls @ 166.6 mls/hr IVPB Q12H [facility]; Protocol Last Admin: 01/11/19 12:47 Dose: 166.6 mls/hr Lactobacillus Acidophilus (Lactobacillus) 1 cap PO BID [facility] Last Admin: 01/11/19 10:34 Dose: 1 cap Methotrexate (Methotrexate) 15 mg PO QWK [facility] Methylprednisolone (Solu-Medrol) 40 mg IVP Q8H [facility] Last Admin: 01/11/19 12:47 Dose: 40 mg Oseltamivir Phosphate (Tamiflu Cap) 75 mg PO BID [facility]; Protocol Stop: 01/15/19 10:17 Last Admin: 01/11/19 10:34 Dose: 75 mg Rosuvastatin Calcium (Crestor) 10 mg PO HS [facility] Last Admin: 01/10/19 21:16 Dose: 10 mg Trazodone HCl (Desyrel) 100 mg PO HS [facility] Last Admin: 01/10/19 21:17 Dose: 100 mg Results - Vital Signs Recent Vital Signs: Last Vital Signs Temp 98.0 F 01/11/19 15:00 Pulse 81 01/11/19 15:00 Resp 20 01/11/19 15:00 BP 159/84 H 01/11/19 15:00 Pulse Ox 96 01/11/19 15:00 - Labs Result Diagrams: 01/11/19 07:04 01/11/19 07:04 Labs: Laboratory Results - last 24 hr 01/11/19 01/11/19 07:04 07:04 WBC 23.4 H RBC 4.43 Hgb 11.5 Hct 36.6 MCV 82.6 MCH 25.9 L MCHC 31.3 L RDW 17.8 H Plt Count 314 MPV 8.1 Neut % (Auto) 91.7 H Lymph % (Auto) 4.8 L King % (Auto) 3.1 Eos % (Auto) 0.1 Baso % (Auto) 0.3 Neut # (Auto) 21.5 H Lymph # (Auto) 1.1 King # (Auto) 0.7 Eos # (Auto) 0.0 Baso # (Auto) 0.1 Neutrophils % (Manual) 90 H Band Neutrophils % 1 Lymphocytes % (Manual) 6 L Monocytes % (Manual) 3 Platelet Estimate Normal Polychromasia Slight Hypochromasia (manual) Slight Anisocytosis (manual) Slight Sodium 141 Potassium 5.3 H Chloride 104 Carbon Dioxide 29 Anion Gap 13 BUN 20 H Creatinine 0.7 Est GFR ( Amer) > 60 Est GFR (Non-Af Amer) > 60 Random Glucose 281 H Calcium 9.1 Total Bilirubin 0.5 AST 29 ALT 31 Alkaline Phosphatase 111 NT-Pro-B Natriuret Pep 420 Total Protein 7.5 Albumin 3.9 Globulin 3.6 Albumin/Globulin Ratio 1.1
[2019-01-11] MEDS: Acetaminophen-Codeine 300/30 mg Tab PO PRN (16:33)
[2019-01-11] MEDS: Digoxin 125 mcg (0.125 mg) Tab PO SCH (17:02)
[2019-01-11 17:14] LABS: BLOOD UREA NITROGEN 21 mg/dL (7-17); CALCIUM 8.1 mg/dl (8.6-10.4); GFR NON-AFRICAN AMERICAN > 60
--- NOTE | 2019-01-11 22:03 | CP.PCM.PN ---
Subjective - Date & Time of Evaluation Date of Evaluation: 01/11/19 Time of Evaluation: 14:00 - Subjective Subjective: dictated Objective - Vital Signs/Intake and Output Vital Signs (last 24 hours): Temp Pulse Resp BP Pulse Ox 98.0 F 81 20 159/84 H 96 01/11/19 15:00 01/11/19 15:00 01/11/19 15:00 01/11/19 15:00 01/11/19 15:45 Intake and Output: 01/11/19 01/12/19 18:59 06:59 Intake Total 480 Balance 480 - Medications Medications: Current Medications Acetaminophen/Codeine Phosphate (Tylenol/Codeine 300 Mg/30 Mg) 1 ea PO Q12 PRN PRN Reason: Pain, moderate (4-7) Last Admin: 01/11/19 16:33 Dose: 1 ea Albuterol (Ventolin Hfa 90 Mcg/Actuation (8 G)) 2 puff INH RQ6 PRN PRN Reason: Shortness of Breath Albuterol/Ipratropium (Duoneb 3 Mg/0.5 Mg (3 Ml) Ud) 3 ml INH RQ6 [facility] Stop: 01/12/19 11:02 Last Admin: 01/11/19 19:28 Dose: Not Given Alprazolam (Xanax) 0.5 mg PO Q8H PRN PRN Reason: Anxiety Last Admin: 01/11/19 20:08 Dose: 0.5 mg Calcium Carbonate (Oscal) 500 mg PO DAILY [facility] Last Admin: 01/11/19 10:34 Dose: 500 mg Digoxin (Digoxin) 0.125 mg PO DAILY@1800 [facility] Last Admin: 01/11/19 17:02 Dose: 0.125 mg Duloxetine HCl (Cymbalta) 90 mg PO DAILY [facility] Last Admin: 01/11/19 10:34 Dose: 90 mg Fluticasone/Vilanterol (Breo Ellipta 200-25 Mcg Inh) 1 puff INH RQD [facility] Last Admin: 01/11/19 13:15 Dose: Not Given Folic Acid (Folic Acid) 1 mg PO DAILY [facility] Last Admin: 01/11/19 10:34 Dose: 1 mg Heparin Sodium (Porcine) (Heparin) 5,000 units SC Q8 [facility] Last Admin: 01/11/19 13:49 Dose: 5,000 units Hydroxychloroquine Sulfate (Plaquenil) 200 mg PO BID [facility]; Protocol Last Admin: 01/11/19 17:02 Dose: 200 mg Piperacillin Sod/Tazobactam (Sod 3.375 gm/ Sodium Chloride) 100 mls @ 200 mls/hr IVPB Q6H [facility]; Protocol Last Admin: 01/11/19 16:27 Dose: 200 mls/hr Vancomycin HCl 1,000 mg/ (Sodium Chloride) 250 mls @ 166.6 mls/hr IVPB Q12H [facility]; Protocol Last Admin: 01/11/19 12:47 Dose: 166.6 mls/hr Lactobacillus Acidophilus (Lactobacillus) 1 cap PO BID [facility] Last Admin: 01/11/19 17:03 Dose: 1 cap Methotrexate (Methotrexate) 15 mg PO QWK [facility] Methylprednisolone (Solu-Medrol) 40 mg IVP Q8H [facility] Last Admin: 01/11/19 12:47 Dose: 40 mg Oseltamivir Phosphate (Tamiflu Cap) 75 mg PO BID [facility]; Protocol Stop: 01/15/19 10:17 Last Admin: 01/11/19 17:02 Dose: 75 mg Rosuvastatin Calcium (Crestor) 10 mg PO HS TC Last Admin: 01/10/19 21:16 Dose: 10 mg Trazodone HCl (Desyrel) 100 mg PO HS TC Last Admin: 01/10/19 21:17 Dose: 100 mg - Labs Labs: 01/11/19 07:04 01/11/19 16:54 PT 13.5 SECONDS (9.7-12.2) H 01/10/19 06:18 INR 1.2 01/10/19 06:18 APTT 34 SECONDS (21-34) 01/10/19 06:18
[2019-01-12] MEDS: Albuterol-Ipratrop 3 mg / 0.5 (3 ml) UD INH SCH ×4 (01:56→19:25)
--- NOTE | 2019-01-12 02:51 | PN ---
DATE: 01/11/2019 INFECTIOUS DISEASE FOLLOWUP NOTE SUBJECTIVE: I went to see her today. She says she was still in pain. She says she is always in pain. She did say she has a Port-A-Cath which was there for 10 years, it is on the left-hand side. Her blood cultures were positive for Staph epidermidis one set, and the other set need to be finalized. This makes me think she has catheter sepsis, and I discussed the plan with her, and we will get an echocardiogram, and we will wait for the final ID and sensitivity, and once her cultures get negative, she may need another PICC line to continue and get rid of this Port-A-Cath. We will discuss the plan with the primary. OBJECTIVE: VITAL SIGNS: T-max is 98 today, pulse 81, blood pressure 159/84, respirations are 20. HEENT: Head is atraumatic, normocephalic. She denied any throat pain today. NECK: Supple. LUNGS: Have bilateral expiratory wheeze and rhonchi. HEART: S1, S2. Regular. ABDOMEN: Soft, nontender, flabby. EXTREMITIES: Have no edema. LABORATORY DATA: Labs are noted, and she has a left-sided Port-A-Cath. Her white count remains high at 23.4, hemoglobin 11.5, hematocrit 36.6, platelet count is 314, BUN is 21, creatinine 0.7. Urine opiates are positive. He has been on pain medications Blood culture x2 are positive. Chest x-ray shows right hilar prominence, elevated right hemidiaphragm, patchy increased markings in the right hilar and left lung base. She has bilateral infiltrates and pneumonia, probably with acute exacerbation of COPD and has high white count and has Staph epidermidis and the second culture needs to be identified, probably has Port-A-Cath related sepsis. Also, we will order an echocardiogram to rule out vegetation, and we will need to get rid of this, and she suffers from lupus and COPD. She is on vancomycin, she is on Tamiflu, and she is on Zosyn at this time. We will follow. Maritza Spann MD
[2019-01-12] MEDS: MethylPREDNISolone 40 mg Vial IVP SCH ×2 (05:00→18:00)
[2019-01-12] MEDS: Piperacillin/Tazobact 3.375 GM in Sodium Chloride 100 ML IVPB SCH ×3 (05:00→22:10)
--- NOTE | 2019-01-12 07:45 | CP.PCM.PN ---
<Aldair Falk - Last Filed: 01/12/19 13:15> Subjective - Date & Time of Evaluation Date of Evaluation: 01/12/19 Time of Evaluation: 07:41 - Subjective Subjective: PGY-1 Medicine Progress Note for Dr. Sesay Patient was seen and examined at bedside this AM, resting comfortably and in no acute distress. No overnight events reported. Shortness of breath improved with continued duoneb treatment. Some wheezing still noted, though chronic in nature per patient. 12 pt ROS reviewed and otherwise negative. Objective - Vital Signs/Intake and Output Vital Signs (last 24 hours): Temp Pulse Resp BP Pulse Ox 97.8 F 90 20 142/80 94 L 01/12/19 00:00 01/12/19 00:00 01/12/19 00:00 01/12/19 00:00 01/12/19 00:00 - Medications Medications: Current Medications Acetaminophen/Codeine Phosphate (Tylenol/Codeine 300 Mg/30 Mg) 1 ea PO Q12 PRN PRN Reason: Pain, moderate (4-7) Last Admin: 01/11/19 16:33 Dose: 1 ea Albuterol (Ventolin Hfa 90 Mcg/Actuation (8 G)) 2 puff INH RQ6 PRN PRN Reason: Shortness of Breath Albuterol/Ipratropium (Duoneb 3 Mg/0.5 Mg (3 Ml) Ud) 3 ml INH RQ6 [facility] Stop: 01/12/19 11:02 Last Admin: 01/12/19 01:56 Dose: 3 ml Alprazolam (Xanax) 0.5 mg PO Q8H PRN PRN Reason: Anxiety Last Admin: 01/12/19 06:29 Dose: 0.5 mg Calcium Carbonate (Oscal) 500 mg PO DAILY [facility] Last Admin: 01/11/19 10:34 Dose: 500 mg Digoxin (Digoxin) 0.125 mg PO DAILY@1800 [facility] Last Admin: 01/11/19 17:02 Dose: 0.125 mg Duloxetine HCl (Cymbalta) 90 mg PO DAILY [facility] Last Admin: 01/11/19 10:34 Dose: 90 mg Fluticasone/Vilanterol (Breo Ellipta 200-25 Mcg Inh) 1 puff INH RQD [facility] Last Admin: 01/11/19 13:15 Dose: Not Given Folic Acid (Folic Acid) 1 mg PO DAILY [facility] Last Admin: 01/11/19 10:34 Dose: 1 mg Heparin Sodium (Porcine) (Heparin) 5,000 units SC Q8 [facility] Last Admin: 01/12/19 05:15 Dose: 5,000 units Hydroxychloroquine Sulfate (Plaquenil) 200 mg PO BID [facility]; Protocol Last Admin: 01/11/19 17:02 Dose: 200 mg Piperacillin Sod/Tazobactam (Sod 3.375 gm/ Sodium Chloride) 100 mls @ 200 mls/hr IVPB Q6H [facility]; Protocol Last Admin: 01/12/19 05:00 Dose: 200 mls/hr Vancomycin HCl 1,000 mg/ (Sodium Chloride) 250 mls @ 166.6 mls/hr IVPB Q12H [facility]; Protocol Last Admin: 01/11/19 23:29 Dose: 166.6 mls/hr Lactobacillus Acidophilus (Lactobacillus) 1 cap PO BID [facility] Last Admin: 01/11/19 17:03 Dose: 1 cap Methotrexate (Methotrexate) 15 mg PO QWK [facility] Methylprednisolone (Solu-Medrol) 40 mg IVP Q8H [facility] Last Admin: 01/12/19 05:00 Dose: 40 mg Rosuvastatin Calcium (Crestor) 10 mg PO HS [facility] Last Admin: 01/11/19 22:38 Dose: 10 mg Trazodone HCl (Desyrel) 100 mg PO HS [facility] Last Admin: 01/11/19 22:38 Dose: 100 mg - Labs Labs: 01/11/19 07:04 01/11/19 16:54 PT 13.5 SECONDS (9.7-12.2) H 01/10/19 06:18 INR 1.2 01/10/19 06:18 APTT 34 SECONDS (21-34) 01/10/19 06:18 - Constitutional Appears: Non-toxic, No Acute Distress - Head Exam Head Exam: ATRAUMATIC, NORMAL INSPECTION, NORMOCEPHALIC - Eye Exam Eye Exam: EOMI, Normal appearance, PERRL Pupil Exam: NORMAL ACCOMODATION - ENT Exam ENT Exam: Mucous Membranes Moist, Normal Exam Additional comments: slightly erythematous nasal turbinates erythematous pharynx noted, no exudates post-nasal drip - Neck Exam Neck Exam: Full ROM, Normal Inspection - Respiratory Exam Respiratory Exam: Clear to Ausculation Bilateral, NORMAL BREATHING PATTERN. absent: Accessory Muscle Use, Rales, Rhonchi, Wheezes, Respiratory Distress, Stridor - Cardiovascular Exam Cardiovascular Exam: REGULAR RHYTHM, +S1, +S2 - GI/Abdominal Exam GI & Abdominal Exam: Soft, Normal Bowel Sounds. absent: Distended, Firm, Guarding, Rigid, Tenderness - Extremities Exam Extremities Exam: Full ROM, Normal Capillary Refill, Normal Inspection - Back Exam Back Exam: NORMAL INSPECTION - Neurological Exam Neurological Exam: Alert, Awake, Oriented x3 - Skin Skin Exam: Dry, Intact, Normal Color, Warm Assessment and Plan - Assessment and Plan (Free Text) Assessment: 58 year old female with PMhx including lupus, RA, depression, anxiety, COPD, asthma, chronic DVT LE s/p IVC filter presenting with significantly elevared leukocytosis, generalized body aches/pain, sob. Plan: Leukocytosis Hx of port infections -WBC downtrending, remains elevated -CXR (01/10): Moderate venous congestion. R hilar prominence, elevated R hemidiaphragm. Patchy increased markings at the R hilar region and L lung base. Cardiomegaly. Degenerative changes in the spine and shoulder. 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 Spann) recs appreciated -pt has hx of port placement on R side for blood draws d/t poor IV access, became infected about 4 years ago and removed -2nd port placement on L side about 8 years ago -BCx positive for G+ cocci, requesting removal of port -Surgical recs (Dr. Tavera) appreciated -port removal and peripheral IV placement in OR -23-48 hr central line holiday to follow and then will place new port -Vancomycin 1 gm q12 [facility] -f/u vanc trough after 7th dose (2nd cycle) -Zosyn 3.375 q6h [facility] Shortness of breath Hx of Asthma, COPD -wheezing still noted, though improved from day prior -f/u Pulm recs (Dr. Apple) -O2 via NC prn -duonebs q6h [facility] -will taper to solumedrol 40 mg IV q12 [facility] -ventolin 2 puff q6h PRN Hyperkalemia, resolved -K wnl, continue to monitor Hx of Lupus Hx of Rheumatoid Arthritis -calcium carbonate 500 daily -folic Acid 1 mg PO daily -hydroxychloroquine 200 mg PO BID -methotrexate 15 mg PO qwk -Tylenol #4 300/30 1 tab Q12H PRN for pain Hx of CHF -digoxin 0.125mg PO daily -Echo (03/2018): mild concentric LVH, EF 55-60%, LV diastolic function is abnormal, trace aortic regurgitation -f/u repeat Echo report -strict I/Os Hx of HLD -crestor 10 mg PO HS Hx of chronic DVT, RLE- s/p IVC filter -Meds from previous admission held pending confirmation - Not on list of home medications -lovenox 40 mg SC daily -plavix 7 mg PO daily Major Depression Suicidal ideation -Psych recs (Dr. Orellana) appreciated -Cymbalta 90 mg PO daily -Xanax 0.5mg PO q8 prn PPx, Diet, Disposition -DVT ppx: scds, heparin 5000 U SC Q8 -GI ppx: lactobacillus -Diet: NPO Case discussed with Dr. Lázaro Falk DO, PGY-1 <Kip Sesay - Last Filed: 01/12/19 18:19> Objective - Vital Signs/Intake and Output Vital Signs (last 24 hours): Temp Pulse Resp BP Pulse Ox 98.0 F 94 H 20 135/72 95 01/12/19 16:00 01/12/19 16:00 01/12/19 16:00 01/12/19 16:00 01/12/19 16:57 - Medications Medications: Current Medications Acetaminophen/Codeine Phosphate (Tylenol/Codeine 300 Mg/30 Mg) 1 ea PO Q12 PRN PRN Reason: Pain, moderate (4-7) Last Admin: 01/11/19 16:33 Dose: 1 ea Albuterol (Ventolin Hfa 90 Mcg/Actuation (8 G)) 2 puff INH RQ6 PRN PRN Reason: Shortness of Breath Albuterol/Ipratropium (Duoneb 3 Mg/0.5 Mg (3 Ml) Ud) 3 ml INH RQ6 [facility] Stop: 01/13/19 14:01 Last Admin: 01/12/19 13:30 Dose: 3 ml Alprazolam (Xanax) 0.5 mg PO Q8H PRN PRN Reason: Anxiety Last Admin: 01/12/19 18:04 Dose: 0.5 mg Calcium Carbonate (Oscal) 500 mg PO DAILY [facility] Last Admin: 01/12/19 10:28 Dose: 500 mg Dextrose (Dextrose 50% Inj) 0 ml IV STAT PRN; Protocol PRN Reason: Hypoglycemia Protocol Dextrose (Glutose 15) 0 gm PO ONCE PRN; Protocol PRN Reason: Hypoglycemia Protocol Digoxin (Digoxin) 0.125 mg PO DAILY@1800 [facility] Last Admin: 01/12/19 18:04 Dose: 0.125 mg Duloxetine HCl (Cymbalta) 90 mg PO DAILY [facility] Last Admin: 01/12/19 10:27 Dose: 90 mg Fluticasone/Vilanterol (Breo Ellipta 200-25 Mcg Inh) 1 puff INH RQD [facility] Last Admin: 01/12/19 07:50 Dose: 1 puff Folic Acid (Folic Acid) 1 mg PO DAILY [facility] Last Admin: 01/12/19 10:28 Dose: 1 mg Glucagon (Glucagen Diagnostic Kit) 0 mg IM STAT PRN; Protocol PRN Reason: Hypoglycemia Protocol Heparin Sodium (Porcine) (Heparin) 5,000 units SC Q8 [facility] Last Admin: 01/12/19 16:32 Dose: Not Given Hydroxychloroquine Sulfate (Plaquenil) 200 mg PO BID [facility]; Protocol Last Admin: 01/12/19 18:01 Dose: 200 mg Piperacillin Sod/Tazobactam (Sod 3.375 gm/ Sodium Chloride) 100 mls @ 200 mls/hr IVPB Q6H [facility]; Protocol Last Admin: 01/12/19 10:28 Dose: 200 mls/hr Vancomycin HCl 1,000 mg/ (Sodium Chloride) 250 mls @ 166.6 mls/hr IVPB Q12H [facility]; Protocol Last Admin: 01/12/19 12:14 Dose: 166.6 mls/hr Dextrose (Dextrose 5% In Water 1000 Ml) 1,000 mls @ 0 mls/hr IV .Q0M PRN; Protocol PRN Reason: Hypoglycemia Protocol Insulin Human Regular (Novolin R) 0 unit SC ACHS [facility]; Protocol Last Admin: 01/12/19 18:01 Dose: 8 unit Lactobacillus Acidophilus (Lactobacillus) 1 cap PO BID [facility] Last Admin: 01/12/19 18:00 Dose: 1 cap Methotrexate (Methotrexate) 15 mg PO QWK [facility] Methylprednisolone (Solu-Medrol) 40 mg IVP Q12H [facility] Last Admin: 01/12/19 18:00 Dose: 40 mg Rosuvastatin Calcium (Crestor) 10 mg PO HS [facility] Last Admin: 01/11/19 22:38 Dose: 10 mg Trazodone HCl (Desyrel) 100 mg PO HS [facility] Last Admin: 01/11/19 22:38 Dose: 100 mg - Labs Labs: 01/12/19 08:14 01/12/19 08:14 PT 13.5 SECONDS (9.7-12.2) H 01/10/19 06:18 INR 1.2 01/10/19 06:18 APTT 34 SECONDS (21-34) 01/10/19 06:18 Attending/Attestation - Attestation I have personally seen and examined this patient.: Yes I have fully participated in the care of the patient.: Yes I have reviewed all pertinent clinical information, including history, physical exam and plan: Yes Notes (Text): 01/12/19 18:17 This is a late entry. Care of this patient was gone over in detail with resident Dr. Falk. Please also note elevated blood glucose likely secondary to solumedrol: Regular ISS ACHS ordered Hypoglycemic protocol Please note that patient uses Home Oxygen and that she has this at home as well as CPAP at night Spoke with [facility] [employer] Dr. Mansfield and he will order CPAP during the night Kip Sesay D.O.
[2019-01-12] MEDS: Fluticasone-Vilanterol 200/25mcg Diskus INH SCH (07:50)
[2019-01-12] MEDS ORDERED: Fluticasone-Vilanterol 200/25mcg Diskus INH SCH (08:00)
[2019-01-12 08:22] LABS: BASO % 0.2 % (0.0-2.0); HEMOGLOBIN 10.9 g/dL (11.0-16.0); LYMPH # 1.5 K/uL (1.0-4.3); LYMPH % 8.2 % (20.0-40.0); MEAN CELL VOLUME 82.9 fL (81.0-99.0); MEAN CORPUSCULAR HEMOGLOBIN 26.2 pg (27.0-31.0); MEAN CORPUSCULAR HGB CONC 31.6 g/dL (33.0-37.0); MEAN PLATELET VOLUME 8.4 fL (7.2-11.7); MONO # 0.8 K/uL (0.0-0.8); MONO % 4.3 % (0.0-10.0); NEUT # 16.2 K/uL (1.8-7.0); NEUT % 87.3 % (50.0-75.0); PLATELET COUNT 291 K/uL (130-400); RBC 4.17 Mil/uL (3.80-5.20); RED CELL DISTRIBUTION WIDTH 17.1 % (11.5-14.5); WHITE BLOOD COUNT 18.5 K/uL (4.8-10.8)
[2019-01-12 08:53] LABS: ALB/GLOB RATIO 1.2 (1.0-2.1); ALBUMIN 3.9 g/dL (3.5-5.0); ALT/SGPT 31 U/L (9-52); AST/SGOT 23 U/L (14-36); BLOOD UREA NITROGEN 24 mg/dL (7-17); GFR NON-AFRICAN AMERICAN > 60
[2019-01-12 10:24] LABS: BANDS 7 % (0-2); LYMPHOCYTE 5 % (20-40); MONOCYTE 2 % (0-10); NEUTROPHIL 85 % (50-75); REACTIVE LYMPHOCYTES 1 % (0-0); TOTAL CELLS COUNTED 100
[2019-01-12 10:25] LABS: ANISOCYTOSIS SLIGHT; PLATELET ESTIMATE NORMAL (NORMAL)
[2019-01-12 10:26] LABS: HYPOCHROMIC SLIGHT
[2019-01-12 10:27] LABS: GIANT PLATELETS PRESENT
[2019-01-12] MEDS: Lactobacillus Acidophilus 500 MU Cap PO SCH ×2 (10:28→18:00)
[2019-01-12] MEDS ORDERED: Dextrose 50% SYRINGE Inj (50 ml) IV PRN (12:10)
[2019-01-12] MEDS ORDERED: Glucagon Recombinant 1 mg Inj IM PRN (12:10)
--- NOTE | 2019-01-12 13:23 | CP.PCM.CON ---
History of Present Illness - History of Present Illness History of Present Illness: Surgery - Dr. Tavera 58yo F w/ hx of COPD, Asthma, Lupus, RA, CHF, HTN, HL, Osteoporosis, Anxiety/Depression/Bipolar, who was admitted to the hospital 01/10 for whole body pain and subjective fevers/chills. She was found to have leukocytosis of 23 and blood cultures were drawn. Pt has history of port placement on the right side for blood draws d/t poor IV access about 12 years ago. She states the port became infected after about 4 years and was removed. She had a second port placed on the left side about 8 years ago. Since admission her blood cultures have returned positive for G+ cocci and ID has requested removal of the port. Pt does admit to pain and tenderness at the port site. No erythema or drainage noted. She admits to feeling fevers/chills and overall malaise, otherwise she denies any complaints including Nausea/Vomiting/Diarrhea/SOB/Chest pain/Dysuria. PMH: Asthma, COPD, Lupus , RA, CHF, HTN, HLD, osteoporosis, Anxiety, bipolar, depression PSH: cholecystectomy, tonsillectomy, IVC filter, c section Review of Systems - Review of Systems All systems: reviewed and no additional remarkable complaints except (as per HPI) Past Patient History - Infectious Disease Hx of Infectious Diseases: None - Past Medical History & Family History Past Medical History?: Yes - Past Social History Smoking Status: Light Smoker < 10 Cigarettes Daily - CARDIAC Hx Cardia Arrhythmia: Yes Hx Congestive Heart Failure: Yes Hx Hypercholesterolemia: Yes Hx Hypertension: Yes - PULMONARY Hx Asthma: Yes Hx Chronic Obstructive Pulmonary Disease (COPD): Yes Hx Emphysema: Yes Hx Sleep Apnea: Yes - NEUROLOGICAL Hx Neurological Disorder: No - HEENT Hx HEENT Problems: No - RENAL Hx Chronic Kidney Disease: No - ENDOCRINE/METABOLIC Hx Diabetes Mellitus Type 2: Yes Hx Systemic Lupus Erythematosus: Yes - HEMATOLOGICAL/ONCOLOGICAL Hx Anemia: Yes - INTEGUMENTARY Hx Dermatological Problems: No - MUSCULOSKELETAL/RHEUMATOLOGICAL Hx Arthritis: Yes Hx Osteoporosis: Yes Hx Rheumatoid Arthritis: Yes - GASTROINTESTINAL Hx Gastrointestinal Disorders: No - GENITOURINARY/GYNECOLOGICAL Hx Genitourinary Disorders: No - PSYCHIATRIC Hx Anxiety: Yes Hx Bipolar Disorder: Yes Hx Depression: Yes Hx Schizophrenia: Yes Hx Substance Use: No - SURGICAL HISTORY Hx Cholecystectomy: Yes Hx Tonsillectomy: Yes - ANESTHESIA Hx Anesthesia: Yes Hx Anesthesia Reactions: No Hx Malignant Hyperthermia: No Meds Allergies/Adverse Reactions: Allergies Allergy/AdvReac Type Severity Reaction Status Date / Time hydromorphone HCl Allergy Severe ANAPHYLAXIS Verified 10/25/18 14:30 [From Dilaudid] meperidine HCl [From Demerol] Allergy Severe ANAPHYLAXIS Verified 10/25/18 14:30 - Medications Medications: Current Medications Acetaminophen/Codeine Phosphate (Tylenol/Codeine 300 Mg/30 Mg) 1 ea PO Q12 PRN PRN Reason: Pain, moderate (4-7) Last Admin: 01/11/19 16:33 Dose: 1 ea Albuterol (Ventolin Hfa 90 Mcg/Actuation (8 G)) 2 puff INH RQ6 PRN PRN Reason: Shortness of Breath Albuterol/Ipratropium (Duoneb 3 Mg/0.5 Mg (3 Ml) Ud) 3 ml INH RQ6 [facility] Stop: 01/13/19 14:01 Alprazolam (Xanax) 0.5 mg PO Q8H PRN PRN Reason: Anxiety Last Admin: 01/12/19 06:29 Dose: 0.5 mg Calcium Carbonate (Oscal) 500 mg PO DAILY [facility] Last Admin: 01/12/19 10:28 Dose: 500 mg Dextrose (Dextrose 50% Inj) 0 ml IV STAT PRN; Protocol PRN Reason: Hypoglycemia Protocol Dextrose (Glutose 15) 0 gm PO ONCE PRN; Protocol PRN Reason: Hypoglycemia Protocol Digoxin (Digoxin) 0.125 mg PO DAILY@1800 [facility] Last Admin: 01/11/19 17:02 Dose: 0.125 mg Duloxetine HCl (Cymbalta) 90 mg PO DAILY [facility] Last Admin: 01/12/19 10:27 Dose: 90 mg Fluticasone/Vilanterol (Breo Ellipta 200-25 Mcg Inh) 1 puff INH RQD [facility] Last Admin: 01/12/19 07:50 Dose: 1 puff Folic Acid (Folic Acid) 1 mg PO DAILY [facility] Last Admin: 01/12/19 10:28 Dose: 1 mg Glucagon (Glucagen Diagnostic Kit) 0 mg IM STAT PRN; Protocol PRN Reason: Hypoglycemia Protocol Heparin Sodium (Porcine) (Heparin) 5,000 units SC Q8 [facility] Last Admin: 01/12/19 05:15 Dose: 5,000 units Hydroxychloroquine Sulfate (Plaquenil) 200 mg PO BID [facility]; Protocol Last Admin: 01/12/19 10:28 Dose: 200 mg Piperacillin Sod/Tazobactam (Sod 3.375 gm/ Sodium Chloride) 100 mls @ 200 mls/ hr IVPB Q6H TC; Protocol Last Admin: 01/12/19 10:28 Dose: 200 mls/hr Vancomycin HCl 1,000 mg/ (Sodium Chloride) 250 mls @ 166.6 mls/hr IVPB Q12H TC; Protocol Last Admin: 01/12/19 12:14 Dose: 166.6 mls/hr Dextrose (Dextrose 5% In Water 1000 Ml) 1,000 mls @ 0 mls/hr IV .Q0M PRN; Protocol PRN Reason: Hypoglycemia Protocol Insulin Human Regular (Novolin R) 0 unit SC ACHS [facility]; Protocol Lactobacillus Acidophilus (Lactobacillus) 1 cap PO BID [facility] Last Admin: 01/12/19 10:28 Dose: 1 cap Methotrexate (Methotrexate) 15 mg PO QWK [facility] Methylprednisolone (Solu-Medrol) 40 mg IVP Q12H TC Rosuvastatin Calcium (Crestor) 10 mg PO HS [facility] Last Admin: 01/11/19 22:38 Dose: 10 mg Trazodone HCl (Desyrel) 100 mg PO [facility] Last Admin: 01/11/19 22:38 Dose: 100 mg Physical Exam - Constitutional Appears: Well, No Acute Distress - Head Exam Head Exam: ATRAUMATIC - Eye Exam Eye Exam: Normal appearance - Respiratory Exam Respiratory Exam: NORMAL BREATHING PATTERN. absent: Respiratory Distress - Cardiovascular Exam Cardiovascular Exam: REGULAR RHYTHM - Neurological Exam Neurological exam: Alert, Oriented x3 - Psychiatric Exam Psychiatric exam: Normal Affect, Normal Mood - Skin Skin Exam: Dry, Intact, Normal Color Additional comments: mild ttp around Left portsite, no erythema/edema/induration or draingae; scarring on right upper chest from prior port Results - Vital Signs Recent Vital Signs: Last Vital Signs Temp 98.1 F 01/12/19 08:00 Pulse 86 01/12/19 08:00 Resp 20 01/12/19 08:00 BP 146/81 01/12/19 08:00 Pulse Ox 95 01/12/19 08:00 - Labs Result Diagrams: 01/12/19 08:14 01/12/19 08:14 Labs: Laboratory Results - last 24 hr 01/11/19 01/12/19 01/12/19 16:54 08:14 08:14 WBC 18.5 H RBC 4.17 Hgb 10.9 L Hct 34.6 MCV 82.9 MCH 26.2 L MCHC 31.6 L RDW 17.1 H Plt Count 291 MPV 8.4 Neut % (Auto) 87.3 H Lymph % (Auto) 8.2 L [place] % (Auto) 4.3 Eos % (Auto) 0.0 Baso % (Auto) 0.2 Neut # (Auto) 16.2 H Lymph # (Auto) 1.5 [place] # (Auto) 0.8 Eos # (Auto) 0.0 Baso # (Auto) 0.0 Neutrophils % (Manual) 85 H Band Neutrophils % 7 H Lymphocytes % (Manual) 5 L Reactive Lymphs % 1 H Monocytes % (Manual) 2 Platelet Estimate Normal Giant Platelets Present Hypochromasia (manual) Slight Anisocytosis (manual) Slight Sodium 138 137 Potassium 4.9 4.8 Chloride 99 100 Carbon Dioxide 28 30 Anion Gap 16 13 BUN 21 H 24 H Creatinine 0.7 0.7 Est GFR ( Amer) > 60 > 60 Est GFR (Non-Af Amer) > 60 > 60 Random Glucose 257 H 411 H* D Calcium 8.1 L 9.0 Total Bilirubin 0.5 AST 23 ALT 31 Alkaline Phosphatase 104 Total Protein 7.2 Albumin 3.9 Globulin 3.3 Albumin/Globulin Ratio 1.2 Assessment & Plan - Assessment and Plan (Free Text) Assessment: 58 yo F w/ infected port -Will plan for Port removal and peripheral IV placement in OR on Monday 01/15 -24-48hr central line holiday to follow and then will place new port later in the week -F/U Echo -F/U ID reccs -Cont. Iv Abx DW Dr Liang Dey PGY4
--- NOTE | 2019-01-12 16:53 | CARD ---
APPROVED REPORT Date of service: 01/11/2019 EXAM: Two-dimensional and M-mode echocardiogram with Doppler and color Doppler. Other Information Quality : TDSRhythm : INDICATION Infection:Rule out subacute bacterial endocarditis Congestive Heart Failure 2D DIMENSIONS IVSd1.0 (0.7-1.1cm)LVDd6.0 (3.9-5.9cm) PWd1.1 (0.7-1.1cm)LA Zunbwz54 (18-58mL) LVDs3.9 (2.5-4.0cm)FS (%) 34.6 % LVEF (%)62.8 (>50%)LVEF (Tracey's)74.44 % M-Mode DIMENSIONS Left Atrium (MM)4.38 (2.5-4.0cm)IVSd0.92 (0.7-1.1cm) Aortic Root3.74 (2.2-3.7cm)LVDd5.79 (4.0-5.6cm) Aortic Cusp Exc.2.35 (1.5-2.0cm)PWd0.88 (0.7-1.1cm) FS (%) 30 %LVDs4.06 (2.0-3.8cm) LVEF (%)60 (>50%) Mitral Valve MV E Xesnzqyd85.7cm/sMV A Vadjhenr80.6cm/sE/A ratio0.9 TDI Lateral E' Peak V12.42cm/sMedial E' Peak V9.19cm/sE/Lateral E'6.3 E/Medial E'8.5 LEFT VENTRICLE The left ventricle is normal size. There is normal left ventricular wall thickness. The left ventricular function is normal. The left ventricular ejection fraction is within the normal range. There is normal LV segmental wall motion. Transmitral Doppler flow pattern is Grade I-abnormal relaxation pattern. RIGHT VENTRICLE The right ventricle is normal size. There is normal right ventricular wall thickness. The right ventricular systolic function is normal. ATRIA The left atrium size is normal. The right atrium size is normal. AORTIC VALVE The aortic valve is not well visualized. No aortic regurgitation is present. There is no aortic valvular stenosis. MITRAL VALVE The mitral valve is not well visualized. There is no mitral valve stenosis. There is no mitral valve regurgitation noted. TRICUSPID VALVE The tricuspid valve is normal in structure. There is trace tricuspid regurgitation. PULMONIC VALVE There is trace pulmonic valvular regurgitation. GREAT VESSELS The aortic root is normal in size. <Conclusion> Poor Echo window There is normal left ventricular wall thickness. The left ventricular function is normal. The left ventricular ejection fraction is within the normal range. There is normal LV segmental wall motion. Transmitral Doppler flow pattern is Grade I-abnormal relaxation pattern. No vegitation seen
[2019-01-12] MEDS: (Novolin R) Insulin Human Regular 100 units/ml vial SC SCH ×3 (18:01→23:04)
[2019-01-12] MEDS: Digoxin 125 mcg (0.125 mg) Tab PO SCH (18:04)
[2019-01-13] MEDS: Albuterol-Ipratrop 3 mg / 0.5 (3 ml) UD INH SCH ×3 (02:41→13:40)
[2019-01-13] MEDS: (Novolin R) Insulin Human Regular 100 units/ml vial SC SCH ×5 (02:54→21:32)
[2019-01-13] MEDS: Piperacillin/Tazobact 3.375 GM in Sodium Chloride 100 ML IVPB SCH ×4 (05:00→21:18)
[2019-01-13] MEDS: MethylPREDNISolone 40 mg Vial IVP SCH (06:20)
[2019-01-13 07:32] LABS: BASO # 0.1 K/uL (0.0-0.2); BASO % 0.6 % (0.0-2.0); EOS # 0.1 K/uL (0.0-0.7); EOS % 0.3 % (0.0-4.0); HEMOGLOBIN 11.7 g/dL (11.0-16.0); LYMPH # 3.1 K/uL (1.0-4.3); MEAN CELL VOLUME 82.1 fL (81.0-99.0); MEAN CORPUSCULAR HEMOGLOBIN 25.8 pg (27.0-31.0); MEAN CORPUSCULAR HGB CONC 31.4 g/dL (33.0-37.0); MEAN PLATELET VOLUME 8.2 fL (7.2-11.7); MONO # 1.6 K/uL (0.0-0.8); MONO % 8.2 % (0.0-10.0); NEUT # 14.4 K/uL (1.8-7.0); NEUT % 74.9 % (50.0-75.0); NRBC % 0.1 % (0.0-2.0); RBC 4.55 Mil/uL (3.80-5.20); RED CELL DISTRIBUTION WIDTH 16.7 % (11.5-14.5); WHITE BLOOD COUNT 19.2 K/uL (4.8-10.8)
[2019-01-13 07:59] LABS: ALB/GLOB RATIO 1.2 (1.0-2.1); ALBUMIN 3.8 g/dL (3.5-5.0); ALT/SGPT 22 U/L (9-52); AST/SGOT 35 U/L (14-36); BLOOD UREA NITROGEN 22 mg/dL (7-17); CALCIUM 9.2 mg/dl (8.6-10.4); GFR NON-AFRICAN AMERICAN > 60
[2019-01-13] MEDS: Fluticasone-Vilanterol 200/25mcg Diskus INH SCH (08:20)
--- NOTE | 2019-01-13 08:23 | CP.PCM.PN ---
<Jey Ledezma - Last Filed: 01/13/19 15:00> Subjective - Date & Time of Evaluation Date of Evaluation: 01/13/19 Time of Evaluation: 08:22 - Subjective Subjective: Progress Note for Hospitalist service Patient seen and examined at bedtime. Objective - Vital Signs/Intake and Output Vital Signs (last 24 hours): Temp Pulse Resp BP Pulse Ox 98.2 F 72 20 177/96 H 94 L 01/13/19 08:00 01/13/19 08:00 01/13/19 08:00 01/13/19 08:00 01/13/19 08:00 - Medications Medications: Current Medications Acetaminophen/Codeine Phosphate (Tylenol/Codeine 300 Mg/30 Mg) 1 ea PO Q12 PRN PRN Reason: Pain, moderate (4-7) Last Admin: 01/11/19 16:33 Dose: 1 ea Albuterol (Ventolin Hfa 90 Mcg/Actuation (8 G)) 2 puff INH RQ6 PRN PRN Reason: Shortness of Breath Albuterol/Ipratropium (Duoneb 3 Mg/0.5 Mg (3 Ml) Ud) 3 ml INH RQ6 [facility] Stop: 01/13/19 14:01 Last Admin: 01/13/19 02:41 Dose: Not Given Alprazolam (Xanax) 0.5 mg PO Q8H PRN PRN Reason: Anxiety Last Admin: 01/13/19 01:53 Dose: 0.5 mg Calcium Carbonate (Oscal) 500 mg PO DAILY [facility] Last Admin: 01/12/19 10:28 Dose: 500 mg Dextrose (Dextrose 50% Inj) 0 ml IV STAT PRN; Protocol PRN Reason: Hypoglycemia Protocol Dextrose (Glutose 15) 0 gm PO ONCE PRN; Protocol PRN Reason: Hypoglycemia Protocol Digoxin (Digoxin) 0.125 mg PO DAILY@1800 [facility] Last Admin: 01/12/19 18:04 Dose: 0.125 mg Duloxetine HCl (Cymbalta) 90 mg PO DAILY [facility] Last Admin: 01/12/19 10:27 Dose: 90 mg Fluticasone/Vilanterol (Breo Ellipta 200-25 Mcg Inh) 1 puff INH RQD [facility] Last Admin: 01/13/19 08:20 Dose: 1 puff Folic Acid (Folic Acid) 1 mg PO DAILY [facility] Last Admin: 01/12/19 10:28 Dose: 1 mg Glucagon (Glucagen Diagnostic Kit) 0 mg IM STAT PRN; Protocol PRN Reason: Hypoglycemia Protocol Heparin Sodium (Porcine) (Heparin) 5,000 units SC Q8 [facility] Last Admin: 01/13/19 06:20 Dose: 5,000 units Hydroxychloroquine Sulfate (Plaquenil) 200 mg PO BID TC; Protocol Last Admin: 01/12/19 18:01 Dose: 200 mg Piperacillin Sod/Tazobactam (Sod 3.375 gm/ Sodium Chloride) 100 mls @ 200 mls/hr IVPB Q6H [facility]; Protocol Last Admin: 01/13/19 05:00 Dose: 200 mls/hr Vancomycin HCl 1,000 mg/ (Sodium Chloride) 250 mls @ 166.6 mls/hr IVPB Q12H [facility]; Protocol Last Admin: 01/13/19 00:36 Dose: 166.6 mls/hr Dextrose (Dextrose 5% In Water 1000 Ml) 1,000 mls @ 0 mls/hr IV .Q0M PRN; Protocol PRN Reason: Hypoglycemia Protocol Insulin Human Regular (Novolin R) 0 unit SC ACHS [facility]; Protocol Last Admin: 01/13/19 08:19 Dose: 4 unit Lactobacillus Acidophilus (Lactobacillus) 1 cap PO BID [facility] Last Admin: 01/12/19 18:00 Dose: 1 cap Methotrexate (Methotrexate) 15 mg PO QWK [facility] Methylprednisolone (Solu-Medrol) 40 mg IVP Q12H [facility] Last Admin: 01/13/19 06:20 Dose: 40 mg Rosuvastatin Calcium (Crestor) 10 mg PO HS [facility] Last Admin: 01/12/19 22:09 Dose: 10 mg Trazodone HCl (Desyrel) 100 mg PO HS [facility] Last Admin: 01/12/19 22:09 Dose: 100 mg - Labs Labs: 01/13/19 07:24 01/13/19 07:24 PT 13.5 SECONDS (9.7-12.2) H 01/10/19 06:18 INR 1.2 01/10/19 06:18 APTT 34 SECONDS (21-34) 01/10/19 06:18 <Kip Sesay - Last Filed: 01/13/19 17:01> Objective - Vital Signs/Intake and Output Vital Signs (last 24 hours): Temp Pulse Resp BP Pulse Ox 98.2 F 72 20 177/96 H 94 L 01/13/19 08:00 01/13/19 08:00 01/13/19 08:00 01/13/19 08:00 01/13/19 08:00 - Medications Medications: Current Medications Acetaminophen/Codeine Phosphate (Tylenol/Codeine 300 Mg/30 Mg) 1 ea PO Q12 PRN PRN Reason: Pain, moderate (4-7) Last Admin: 01/11/19 16:33 Dose: 1 ea Alprazolam (Xanax) 0.5 mg PO Q8H PRN PRN Reason: Anxiety Last Admin: 01/13/19 09:30 Dose: 0.5 mg Calcium Carbonate (Oscal) 500 mg PO DAILY [facility] Last Admin: 01/13/19 09:23 Dose: 500 mg Dextrose (Dextrose 50% Inj) 0 ml IV STAT PRN; Protocol PRN Reason: Hypoglycemia Protocol Dextrose (Glutose 15) 0 gm PO ONCE PRN; Protocol PRN Reason: Hypoglycemia Protocol Digoxin (Digoxin) 0.125 mg PO DAILY@1800 [facility] Last Admin: 01/12/19 18:04 Dose: 0.125 mg Duloxetine HCl (Cymbalta) 90 mg PO DAILY [facility] Last Admin: 01/13/19 09:24 Dose: 90 mg Fluticasone/Vilanterol (Breo Ellipta 200-25 Mcg Inh) 1 puff INH RQD [facility] Last Admin: 01/13/19 08:20 Dose: 1 puff Folic Acid (Folic Acid) 1 mg PO DAILY [facility] Last Admin: 01/13/19 09:30 Dose: 1 mg Glucagon (Glucagen Diagnostic Kit) 0 mg IM STAT PRN; Protocol PRN Reason: Hypoglycemia Protocol Heparin Sodium (Porcine) (Heparin) 5,000 units SC Q8 [facility] Last Admin: 01/13/19 13:31 Dose: 5,000 units Hydroxychloroquine Sulfate (Plaquenil) 200 mg PO BID [facility]; Protocol Last Admin: 01/13/19 09:24 Dose: 200 mg Piperacillin Sod/Tazobactam (Sod 3.375 gm/ Sodium Chloride) 100 mls @ 200 mls/hr IVPB Q6H [facility]; Protocol Last Admin: 01/13/19 09:23 Dose: 200 mls/hr Vancomycin HCl 1,000 mg/ (Sodium Chloride) 250 mls @ 166.6 mls/hr IVPB Q12H [facility]; Protocol Last Admin: 01/13/19 11:55 Dose: 166.6 mls/hr Dextrose (Dextrose 5% In Water 1000 Ml) 1,000 mls @ 0 mls/hr IV .Q0M PRN; P rotocol PRN Reason: Hypoglycemia Protocol Insulin Human Isoph/Insulin Regular (Novolin 70/30 (70/30 Units/Ml) 10 Ml) 10 units SC ACB TC Insulin Human Isoph/Insulin Regular (Novolin 70/30 (70/30 Units/Ml) 10 Ml) 3 units SC ACD TC Insulin Human Regular (Novolin R) 0 unit SC ACHS [facility]; Protocol Last Admin: 01/13/19 12:05 Dose: 10 unit Lactobacillus Acidophilus (Lactobacillus) 1 cap PO BID [facility] Last Admin: 01/13/19 09:23 Dose: 1 cap Methotrexate (Methotrexate) 15 mg PO QWK [facility] Prednisone (Prednisone Tab) 50 mg PO ONCE ONE Stop: 01/14/19 11:01 Prednisone (Prednisone Tab) 40 mg PO ONCE ONE Stop: 01/15/19 11:01 Prednisone (Prednisone Tab) 30 mg PO ONCE ONE Stop: 01/16/19 11:01 Prednisone (Prednisone Tab) 20 mg PO ONCE ONE Stop: 01/17/19 11:01 Prednisone (Prednisone Tab) 10 mg PO ONCE ONE Stop: 01/18/19 11:01 Rosuvastatin Calcium (Crestor) 10 mg PO HS [facility] Last Admin: 01/12/19 22:09 Dose: 10 mg Trazodone HCl (Desyrel) 100 mg PO [facility] Last Admin: 01/12/19 22:09 Dose: 100 mg - Labs Labs: 01/13/19 07:24 01/13/19 07:24 PT 13.5 SECONDS (9.7-12.2) H 01/10/19 06:18 INR 1.2 01/10/19 06:18 APTT 34 SECONDS (21-34) 01/10/19 06:18 Attending/Attestation - Attestation I have personally seen and examined this patient.: Yes I have fully participated in the care of the patient.: Yes I have reviewed all pertinent clinical information, including history, physical exam and plan: Yes Notes (Text): 01/13/19 16:05 Hospitalist Progress Note Patient was seen and examined at 10:45 AM 01/13/19 Upon FULL ROS: SOB/Coug/Wheezing is better and feels like now they are at baseline NO chest pain Her whole body aches and whole body joint pain with which she presented have completely resolved Having 3 to 4 watery bowels that are nonbloody/nonblack since she was given Kayexalate a few days ago NO abdominal pain and NO abdominal cramping NO N/V NO burning/pain with urination NO new changes in vision NO new changes in hearing Exam: General: AAOx3, NAD HEENT: NCA, EOMI, PERRLA, NO lymphadenopathy, NO pharyngeal erythema/exudate, NO thyromegaly, Nasal Turbinates are moist/nonerythematous/nonedematous Cardio: NS1 and NS2, NO M/R/G Resp: Diffuse scattered expiratory wheezing, However audible wheezing without stethescope not heard which has improved since admission. Patient is speaking in full sentences and shows NO signs of respiratory distress GI: BSx4, Soft, NT, Central Obesity, NO guarding/rebound tenderness Ext: Pulses are strong and equal, Capillary Refill is 2 seconds, NO edema noted Neuro: CN II through XII are grossly intact Assessments: 1). Leukocytosis Likely Secondary to Gram (+) Bacteremia Status: Acute Improving Vancomycin 1 gm IV Q12H Zosyn 3.375 gm IV Q6H Tamiflu 75 mg PO 2x/day with last dose on 01/15/18 at 6 PM: started upon admission considering presentation even though Rapid Flu negative considering whole body aches (although also could have been secondary to Lupus Exacerbation), low grade fever, patient revealed she did not get the flu vaccine, and that 25% of the time Rapid Flu can be falsely negative. Blood Culture 01/09/19 (+) for Gram positive bactermia: F/U sensitivities F/U repeat Blood Culture 01/12/19 NPO aftermidnight 01/14/19 for Left Chest George Cath Removal by Surgery Team Dr. Tavera: will need to have 24 to 48 hours free of port before insertion of new George Cath (patient has original in place due to difficult IV access in the past) ID Dr. Hutchins 2). SI at the time of Admission Status: Resolved Seen by Psychiatry Dr. Orellana 3). Hx COPD/Asthma Excerbation Status: Acute Uses unspecified dosage of Symbicort at home Uses and has home Oxygen Follows with Dr. Choi as an outpatient Mellyo Ellipta 25/100 mcg 1 PO INH 1x/day Duoneb Q6H around the clock Solumedrol D/C on 01/13/19 as her SOB/Wheezing/Cough has improved and was back at base line Prednisone Taper 17-3-82-20-10 mg started on 01/14/19 and will end on 01/18/19 Patient uses BiPap at night but does not know home settings: she is currently on 08/11 at 40% at night and nursing order placed to make sure patient gets this Consult placed for Dr. Choi but he is away and Dr. Apple is covering 4). Lupus Exacerbation Status: Resolved Exacerbation of Lupus was certainly a possibility considering her presentation Her symptoms have essentially resolved Solumedrol has been discontinued 01/13/19 and Prednisone Taper 51-0-75-20-10 mg started on 01/14/19 and will end on 01/18/19 Hydroxycholorquin 200 mg PO 2x/day She has scheduled appointment with her Resource Conservation Specialist Dr. Matos for 01/23/19 5). Hx RA Status: Chronic Methotrexate 15 mg PO once a week She has scheduled appointment with her Resource Conservation Specialist Dr. Matos for 01/23/19 6). Hx of CHF of unspecified type ? Status: Chronic This is actually questionable as Echocardiogram 01/12/19 did NOT indicate Heart Failure However patient is on Digoxin 0.125 mg PO 1x/day She states that her outpatient Upper Cutter Out is Dr. Merrill whom she has not seen in over 1 1/2 years When questioned 01/13/19 who provides her with refills on her Digoxin if she has not been seeing Dr. Merrill regularly, she stated that her PMD Dr. Willis did Consult placed for Dr. Merrill 01/13/19 for clarification of this issue and for follow up as she has not been to his office for check up as she stated "I am l azy" 7). Hx Hyperlipidemia Status: Chronic Crestor 10 mg PO HS 8). Hx Chronic Right LE DVT S/P IVC Filter Status: Chronic Patient stated that she had an IVC Filter placed at this institution many 8-9 years ago and was on Coumadin for 1 year and then was taken off of it She states that she is currently not on any anticoagulation for this issue and that her PMD Dr. Willis is aware 9). Hx Major Depression/Anxiety Status: Chronic Cymbalta 90 mg PO 1x/day Xanax 0.5 mg PO Q8H PRN Anxiety Seen by Psychiatry Dr. Orellana this admission 10). Hx DM 1 Status: Chronic NO history of DM indicated on the last few H&Ps Patient revealed today that she had DM 1 after explaining to her that her Accuchecks were high (she is on steroids but too high for being on steroids) She stated today that she took Novolog (70/30) 10 units with breakfast and Novolog (70/30) 3 units with dinner and this has been started 01/13/19. Continue RISS ACHS and Hypoglycemic protocol F/U HgBA1C 11). Prophylaxis Heparin 5,000 Units SC Q8H Lactobacillus 1 capsule PO 2x/day while on antibiotics and for 30 additional days after last dose of steroids Protonix 40 mg PO 1x/day while on the steroids Disposition: NPO after midnight 01/14/19 for George Cath Removal with Dr. Tavera on 01/15/19 George Cath will have to be replaced after 24 to 48 hours after removal and as long as repeat Blood Culture 01/12/19 is finalized negative May be discharged once George Cath is replaced Will need to coordinate with ID Dr. Hutchins as to length of antibiotic F/U Dr. Merrill concerning issue of whether this patient actually has Heart Failure Outpatient appointment with Resource Conservation Specialist Dr. Matos 01/23/19 Kip Sesay D.O.
[2019-01-13] MEDS: Lactobacillus Acidophilus 500 MU Cap PO SCH ×2 (09:23→17:16)
--- NOTE | 2019-01-13 09:38 | CP.PCM.PN ---
Subjective - Date & Time of Evaluation Date of Evaluation: 01/13/19 Time of Evaluation: 09:35 - Subjective Subjective: General Surgery Progress Note for Dr. Tavera This Pt was seen and examined this AM at bedside. No acute events reported overnight. She complains of SOB which is consistent with her baseline. She denies any tenderness or pain at her port site. Objective - Vital Signs/Intake and Output Vital Signs (last 24 hours): Temp Pulse Resp BP Pulse Ox 98.2 F 72 20 177/96 H 94 L 01/13/19 08:00 01/13/19 08:00 01/13/19 08:00 01/13/19 08:00 01/13/19 08:00 - Medications Medications: Current Medications Acetaminophen/Codeine Phosphate (Tylenol/Codeine 300 Mg/30 Mg) 1 ea PO Q12 PRN PRN Reason: Pain, moderate (4-7) Last Admin: 01/11/19 16:33 Dose: 1 ea Albuterol (Ventolin Hfa 90 Mcg/Actuation (8 G)) 2 puff INH RQ6 PRN PRN Reason: Shortness of Breath Albuterol/Ipratropium (Duoneb 3 Mg/0.5 Mg (3 Ml) Ud) 3 ml INH RQ6 TC Stop: 01/13/19 14:01 Last Admin: 01/13/19 02:41 Dose: Not Given Alprazolam (Xanax) 0.5 mg PO Q8H PRN PRN Reason: Anxiety Last Admin: 01/13/19 09:30 Dose: 0.5 mg Calcium Carbonate (Oscal) 500 mg PO DAILY [facility] Last Admin: 01/13/19 09:23 Dose: 500 mg Dextrose (Dextrose 50% Inj) 0 ml IV STAT PRN; Protocol PRN Reason: Hypoglycemia Protocol Dextrose (Glutose 15) 0 gm PO ONCE PRN; Protocol PRN Reason: Hypoglycemia Protocol Digoxin (Digoxin) 0.125 mg PO DAILY@1800 [facility] Last Admin: 01/12/19 18:04 Dose: 0.125 mg Duloxetine HCl (Cymbalta) 90 mg PO DAILY [facility] Last Admin: 01/13/19 09:24 Dose: 90 mg Fluticasone/Vilanterol (Breo Ellipta 200-25 Mcg Inh) 1 puff INH RQD [facility] Last Admin: 01/13/19 08:20 Dose: 1 puff Folic Acid (Folic Acid) 1 mg PO DAILY [facility] Last Admin: 01/13/19 09:30 Dose: 1 mg Glucagon (Glucagen Diagnostic Kit) 0 mg IM STAT PRN; Protocol PRN Reason: Hypoglycemia Protocol Heparin Sodium (Porcine) (Heparin) 5,000 units SC Q8 TC Last Admin: 01/13/19 06:20 Dose: 5,000 units Hydroxychloroquine Sulfate (Plaquenil) 200 mg PO BID TC; Protocol Last Admin: 01/13/19 09:24 Dose: 200 mg Piperacillin Sod/Tazobactam (Sod 3.375 gm/ Sodium Chloride) 100 mls @ 200 mls/hr IVPB Q6H TC; Protocol Last Admin: 01/13/19 09:23 Dose: 200 mls/hr Vancomycin HCl 1,000 mg/ (Sodium Chloride) 250 mls @ 166.6 mls/hr IVPB Q12H TC; Protocol Last Admin: 01/13/19 00:36 Dose: 166.6 mls/hr Dextrose (Dextrose 5% In Water 1000 Ml) 1,000 mls @ 0 mls/hr IV .Q0M PRN; Protocol PRN Reason: Hypoglycemia Protocol Insulin Human Regular (Novolin R) 0 unit SC ACHS TC; Protocol Last Admin: 01/13/19 08:19 Dose: 4 unit Lactobacillus Acidophilus (Lactobacillus) 1 cap PO BID [facility] Last Admin: 01/13/19 09:23 Dose: 1 cap Methotrexate (Methotrexate) 15 mg PO QWK [facility] Methylprednisolone (Solu-Medrol) 40 mg IVP Q12H [facility] Last Admin: 01/13/19 06:20 Dose: 40 mg Rosuvastatin Calcium (Crestor) 10 mg PO HS [facility] Last Admin: 01/12/19 22:09 Dose: 10 mg Trazodone HCl (Desyrel) 100 mg PO HS [facility] Last Admin: 01/12/19 22:09 Dose: 100 mg - Labs Labs: 01/13/19 07:24 01/13/19 07:24 PT 13.5 SECONDS (9.7-12.2) H 01/10/19 06:18 INR 1.2 01/10/19 06:18 APTT 34 SECONDS (21-34) 01/10/19 06:18 - Constitutional Appears: Well, No Acute Distress - Head Exam Head Exam: ATRAUMATIC - Eye Exam Eye Exam: Normal appearance - Respiratory Exam Respiratory Exam: NORMAL BREATHING PATTERN. absent: Respiratory Distress - Cardiovascular Exam Cardiovascular Exam: REGULAR RHYTHM - Neurological Exam Neurological exam: Alert, Oriented x3 - Psychiatric Exam Psychiatric exam: Normal Affect, Normal Mood - Skin Skin Exam: Dry, Intact, Normal Color Additional comments: mild ttp around Left portsite, no erythema/edema/induration or draingae; scarring on right upper chest from prior port Assessment and Plan - Assessment and Plan (Free Text) Assessment: 58 yo F w/ infected port -Will plan for Port removal and peripheral IV placement in OR on Monday 01/15 -24-48hr central line holiday to follow and then will place new port later in the week -Echo Normal EF no Vegetations -F/U ID reccs -Cont. Iv Abx DW Dr Liang Ivy PGY3
--- NOTE | 2019-01-13 16:06 | CP.PCM.PCO ---
Assessment & Plan - Assessment and Plan (Free Text) Assessment: Patient is a 58 years old Active smoker Female (smokes 2 cigarettes daily) with a known history of asthma and COPD Pt has not taken respiratory treatment for about 1 week now, She is not on home oxygen by nocturnal BIPAP/CPAP and she does not remember the sitting Noted with diffuse expiratory wheezing noted on PE Saturaion note 94% on RA Continue O2 via NC prn, Keep sat >94% Continue duonebs q6h plus 2 puff q6h PRN Continue solumedrol 40 mg IV q8h and Breo Ellipta 200-25 Mcg Inh 1 puff INH RQD BIPAP 12/6 FIO2 of 40% ordered 9PM-7AM Patient was counseled on smoking cessation by primary team.
[2019-01-13] MEDS: (Novolin 70/30) NPH/Regular 70/30 Units/ml 10 ml vial SC SCH (17:10)
[2019-01-13] MEDS: Digoxin 125 mcg (0.125 mg) Tab PO SCH (17:16)
[2019-01-13] MEDS: Pantoprazole 40 mg EC Tab PO SCH (17:19)
[2019-01-14] MEDS: Piperacillin/Tazobact 3.375 GM in Sodium Chloride 100 ML IVPB SCH ×4 (04:02→21:53)
[2019-01-14] MEDS: Fluticasone-Vilanterol 200/25mcg Diskus INH SCH (07:45)
[2019-01-14] MEDS: (Novolin R) Insulin Human Regular 100 units/ml vial SC SCH ×5 (07:45→21:08)
[2019-01-14] MEDS: (Novolin 70/30) NPH/Regular 70/30 Units/ml 10 ml vial SC SCH ×3 (07:46→16:04)
--- NOTE | 2019-01-14 08:08 | CP.PCM.PN ---
<Jey Ledezma - Last Filed: 01/14/19 08:08> Subjective - Date & Time of Evaluation Date of Evaluation: 01/14/19 Time of Evaluation: 08:08 Objective - Vital Signs/Intake and Output Vital Signs (last 24 hours): Temp Pulse Resp BP Pulse Ox 97.1 F L 69 20 136/76 96 01/13/19 23:45 01/14/19 03:15 01/13/19 23:45 01/13/19 23:45 01/13/19 23:45 Intake and Output: 01/14/19 01/14/19 06:59 18:59 Intake Total Balance - Medications Medications: Current Medications Acetaminophen/Codeine Phosphate (Tylenol/Codeine 300 Mg/30 Mg) 1 ea PO Q12 PRN PRN Reason: Pain, moderate (4-7) Last Admin: 01/11/19 16:33 Dose: 1 ea Alprazolam (Xanax) 0.5 mg PO Q8H PRN PRN Reason: Anxiety Last Admin: 01/14/19 04:02 Dose: 0.5 mg Calcium Carbonate (Oscal) 500 mg PO DAILY [facility] Last Admin: 01/13/19 09:23 Dose: 500 mg Dextrose (Dextrose 50% Inj) 0 ml IV STAT PRN; Protocol PRN Reason: Hypoglycemia Protocol Dextrose (Glutose 15) 0 gm PO ONCE PRN; Protocol PRN Reason: Hypoglycemia Protocol Digoxin (Digoxin) 0.125 mg PO DAILY@1800 [facility] Last Admin: 01/13/19 17:16 Dose: 0.125 mg Duloxetine HCl (Cymbalta) 90 mg PO DAILY [facility] Last Admin: 01/13/19 09:24 Dose: 90 mg Fluticasone/Vilanterol (Breo Ellipta 200-25 Mcg Inh) 1 puff INH RQD [facility] Last Admin: 01/13/19 08:20 Dose: 1 puff Folic Acid (Folic Acid) 1 mg PO DAILY [facility] Last Admin: 01/13/19 09:30 Dose: 1 mg Glucagon (Glucagen Diagnostic Kit) 0 mg IM STAT PRN; Protocol PRN Reason: Hypoglycemia Protocol Heparin Sodium (Porcine) (Heparin) 5,000 units SC Q8 [facility] Last Admin: 01/14/19 06:08 Dose: 5,000 units Hydroxychloroquine Sulfate (Plaquenil) 200 mg PO BID [facility]; Protocol Last Admin: 01/13/19 17:18 Dose: 200 mg Piperacillin Sod/Tazobactam (Sod 3.375 gm/ Sodium Chloride) 100 mls @ 200 mls/hr IVPB Q6H TC; Protocol Last Admin: 01/14/19 04:02 Dose: 200 mls/hr Vancomycin HCl 1,000 mg/ (Sodium Chloride) 250 mls @ 166.6 mls/hr IVPB Q12H TC; Protocol Last Admin: 01/14/19 00:35 Dose: 166.6 mls/hr Dextrose (Dextrose 5% In Water 1000 Ml) 1,000 mls @ 0 mls/hr IV .Q0M PRN; Protocol PRN Reason: Hypoglycemia Protocol Insulin Human Isoph/Insulin Regular (Novolin 70/30 (70/30 Units/Ml) 10 Ml) 10 units SC ACB [facility] Last Admin: 01/14/19 07:46 Dose: 10 units Insulin Human Isoph/Insulin Regular (Novolin 70/30 (70/30 Units/Ml) 10 Ml) 3 units SC ACD [facility] Last Admin: 01/13/19 17:10 Dose: 3 unit Insulin Human Regular (Novolin R) 0 unit SC ACHS [facility]; Protocol Last Admin: 01/14/19 07:45 Dose: 4 unit Lactobacillus Acidophilus (Lactobacillus) 1 cap PO BID [facility] Last Admin: 01/13/19 17:16 Dose: 1 cap Methotrexate (Methotrexate) 15 mg PO QWK [facility] Oseltamivir Phosphate (Tamiflu Cap) 75 mg PO BID [facility]; Protocol Stop: 01/15/19 18:00 Last Admin: 01/13/19 17:16 Dose: 75 mg Pantoprazole Sodium (Protonix Ec Tab) 40 mg PO DAILY [facility] Last Admin: 01/13/19 17:19 Dose: 40 mg Prednisone (Prednisone Tab) 50 mg PO ONCE ONE Stop: 01/14/19 11:01 Prednisone (Prednisone Tab) 40 mg PO ONCE ONE Stop: 01/15/19 11:01 Prednisone (Prednisone Tab) 30 mg PO ONCE ONE Stop: 01/16/19 11:01 Prednisone (Prednisone Tab) 20 mg PO ONCE ONE Stop: 01/17/19 11:01 Prednisone (Prednisone Tab) 10 mg PO ONCE ONE Stop: 01/18/19 11:01 Rosuvastatin Calcium (Crestor) 10 mg PO [facility] Last Admin: 01/13/19 21:17 Dose: 10 mg Trazodone HCl (Desyrel) 100 mg PO HS [facility] Last Admin: 01/13/19 21:24 Dose: 100 mg - Labs Labs: 01/13/19 07:24 01/13/19 07:24 PT 13.5 SECONDS (9.7-12.2) H 01/10/19 06:18 INR 1.2 01/10/19 06:18 APTT 34 SECONDS (21-34) 01/10/19 06:18 <Kip Sesay - Last Filed: 01/14/19 16:18> Subjective - Subjective Subjective: . Objective - Vital Signs/Intake and Output Vital Signs (last 24 hours): Temp Pulse Resp BP Pulse Ox 98.3 F 85 20 128/73 94 L 01/14/19 07:00 01/14/19 08:59 01/14/19 07:00 01/14/19 07:00 01/14/19 07:00 Intake and Output: 01/14/19 01/14/19 06:59 18:59 Intake Total Balance - Medications Medications: Current Medications Acetaminophen (Tylenol 325mg Tab) 650 mg PO Q6 PRN PRN Reason: Pain, Mild (1-3) Acetaminophen/Codeine Phosphate (Tylenol/Codeine 300 Mg/30 Mg) 1 ea PO Q12 PRN PRN Reason: Pain, moderate (4-7) Last Admin: 01/11/19 16:33 Dose: 1 ea Alprazolam (Xanax) 0.5 mg PO Q8H PRN PRN Reason: Anxiety Last Admin: 01/14/19 04:02 Dose: 0.5 mg Calcium Carbonate (Oscal) 500 mg PO DAILY [facility] Last Admin: 01/14/19 09:02 Dose: Not Given Dextrose (Dextrose 50% Inj) 0 ml IV STAT PRN; Protocol PRN Reason: Hypoglycemia Protocol Dextrose (Glutose 15) 0 gm PO ONCE PRN; Protocol PRN Reason: Hypoglycemia Protocol Digoxin (Digoxin) 0.125 mg PO DAILY@1800 [facility] Last Admin: 01/13/19 17:16 Dose: 0.125 mg Duloxetine HCl (Cymbalta) 90 mg PO DAILY [facility] Last Admin: 01/14/19 09:02 Dose: Not Given Fluticasone/Vilanterol (Breo Ellipta 200-25 Mcg Inh) 1 puff INH RQD TC Last Admin: 01/14/19 07:45 Dose: 1 puff Folic Acid (Folic Acid) 1 mg PO DAILY [facility] Last Admin: 01/14/19 09:02 Dose: Not Given Glucagon (Glucagen Diagnostic Kit) 0 mg IM STAT PRN; Protocol PRN Reason: Hypoglycemia Protocol Heparin Sodium (Porcine) (Heparin) 5,000 units SC Q8 TC Last Admin: 01/14/19 06:08 Dose: 5,000 units Hydroxychloroquine Sulfate (Plaquenil) 200 mg PO BID TC; Protocol Last Admin: 01/14/19 09:03 Dose: Not Given Piperacillin Sod/Tazobactam (Sod 3.375 gm/ Sodium Chloride) 100 mls @ 200 mls/hr IVPB Q6H TC; Protocol Last Admin: 01/14/19 10:08 Dose: 200 mls/hr Vancomycin HCl 1,000 mg/ (Sodium Chloride) 250 mls @ 166.6 mls/hr IVPB Q12H TC; Protocol Last Admin: 01/14/19 00:35 Dose: 166.6 mls/hr Dextrose (Dextrose 5% In Water 1000 Ml) 1,000 mls @ 0 mls/hr IV .Q0M PRN; Protocol PRN Reason: Hypoglycemia Protocol Insulin Human Isoph/Insulin Regular (Novolin 70/30 (70/30 Units/Ml) 10 Ml) 10 units SC ACB [facility] Last Admin: 01/14/19 08:34 Dose: Not Given Insulin Human Isoph/Insulin Regular (Novolin 70/30 (70/30 Units/Ml) 10 Ml) 3 units SC ACD [facility] Last Admin: 01/13/19 17:10 Dose: 3 unit Insulin Human Regular (Novolin R) 0 unit SC ACHS TC; Protocol Last Admin: 01/14/19 08:34 Dose: Not Given Lactobacillus Acidophilus (Lactobacillus) 1 cap PO BID [facility] Last Admin: 01/14/19 09:02 Dose: Not Given Methotrexate (Methotrexate) 15 mg PO QWK [facility] Last Admin: 01/14/19 09:02 Dose: Not Given Oseltamivir Phosphate (Tamiflu Cap) 75 mg PO BID TC; Protocol Stop: 01/15/19 18:00 Last Admin: 01/14/19 09:03 Dose: Not Given Pantoprazole Sodium (Protonix Ec Tab) 40 mg PO DAILY [facility] Last Admin: 01/14/19 09:03 Dose: Not Given Prednisone (Prednisone Tab) 50 mg PO ONCE ONE Stop: 01/14/19 11:01 Last Admin: 01/14/19 10:07 Dose: Not Given Prednisone (Prednisone Tab) 40 mg PO ONCE ONE Stop: 01/15/19 11:01 Prednisone (Prednisone Tab) 30 mg PO ONCE ONE Stop: 01/16/19 11:01 Prednisone (Prednisone Tab) 20 mg PO ONCE ONE Stop: 01/17/19 11:01 Prednisone (Prednisone Tab) 10 mg PO ONCE ONE Stop: 01/18/19 11:01 Rosuvastatin Calcium (Crestor) 10 mg PO [facility] Last Admin: 01/13/19 21:17 Dose: 10 mg Trazodone HCl (Desyrel) 100 mg PO [facility] Last Admin: 01/13/19 21:24 Dose: 100 mg - Labs Labs: 01/14/19 08:05 01/14/19 08:05 PT 13.5 SECONDS (9.7-12.2) H 01/10/19 06:18 INR 1.2 01/10/19 06:18 APTT 34 SECONDS (21-34) 01/10/19 06:18 Attending/Attestation - Attestation I have personally seen and examined this patient.: Yes I have fully participated in the care of the patient.: Yes I have reviewed all pertinent clinical information, including history, physical exam and plan: Yes Notes (Text): 01/14/19 10:57 Hospitalist Progress Note Patient was seen and examined at 3:45 AM 01/14/19 Upon FULL ROS: SOB/Coug/Wheezing is better and feels like now they are at baseline NO chest pain Her whole body aches and whole body joint pain with which she presented have completely resolved She had a soft brown bowel movement this morning NO abdominal pain and NO abdominal cramping NO N/V NO burning/pain with urination NO new changes in vision NO new changes in hearing Exam: General: AAOx3, NAD HEENT: NCA, EOMI, PERRLA, NO lymphadenopathy, NO pharyngeal erythema/exudate, NO thyromegaly, Nasal Turbinates are moist/nonerythematous/nonedematous Cardio: NS1 and NS2, NO M/R/G Resp: Diffuse scattered expiratory wheezing, However audible wheezing without stethescope not heard which has improved since admission. Patient is speaking in full sentences and shows NO signs of respiratory distress GI: BSx4, Soft, NT, Central Obesity, NO guarding/rebound tenderness Ext: Pulses are strong and equal, Capillary Refill is 2 seconds, NO edema noted Neuro: CN II through XII are grossly intact Assessments: 1). Leukocytosis Likely Secondary to Gram (+) Bacteremia Status: Acute Improving Vancomycin 1 gm IV Q12H Follow up Vancomycin Trough at 11:30 PM 01/14/19 Zosyn 3.375 gm IV Q6H Tamiflu 75 mg PO 2x/day with last dose on 01/15/18 at 6 PM: started upon admission considering presentation even though Rapid Flu negative considering whole body aches (although also could have been secondary to Lupus Exacerbation), low grade fever, patient revealed she did not get the flu vaccine, and that 25% of the time Rapid Flu can be falsely negative. Blood Culture 01/09/19 (+) for Gram positive bactermia: F/U sensitivities Repeat Blood Culture 01/12/19: negative at 24 hours Patient had Left Chest George Cath removal 01/14/19 earlier than expected by Surgery Team: will need to have 24 to 48 hours free of port before insertion of new George Cath (patient has original in place due to difficult IV access in the past) ID Dr. Hutchins 2). SI at the time of Admission Status: Resolved Seen by Psychiatry Dr. Orellana 3). Hx COPD/Asthma Excerbation Status: Acute Uses unspecified dosage of Symbicort at home Uses and has home Oxygen Follows with Dr. Choi as an outpatient Breo Ellipta 25/100 mcg 1 PO INH 1x/day Duoneb Q6H around the clock Solumedrol D/C on 01/13/19 as her SOB/Wheezing/Cough has improved and was back at base line Prednisone Taper 48-6-80-20-10 mg started on 01/14/19 and will end on 01/18/19 Patient uses BiPap at night but does not know home settings: she is currently on 08/11 at 40% at night and nursing order placed to make sure patient gets this Consult placed for Dr. Choi but he is away and Dr. Apple is covering 4). Lupus Exacerbation Status: Resolved Exacerbation of Lupus was certainly a possibility considering her presentation Her symptoms have essentially resolved Solumedrol has been discontinued 01/13/19 and Prednisone Taper 47-2-43-20-10 mg started on 01/14/19 and will end on 01/18/19 Hydroxycholorquin 200 mg PO 2x/day She has scheduled appointment with her Deaf Interpreter Dr. Matos for 01/23/19 5). Hx RA Status: Chronic Methotrexate 15 mg PO once a week She has scheduled appointment with her Deaf Interpreter Dr. Matos for 01/23/19 6). Hx of CHF of unspecified type ? Status: Chronic This is actually questionable as Echocardiogram 01/12/19 did NOT indicate Heart Failure However patient is on Digoxin 0.125 mg PO 1x/day She states that her outpatient Power Plant Superintendent is Dr. Merrill whom she has not seen in over 1 1/2 years When questioned 01/13/19 who provides her with refills on her Digoxin if she has not been seeing Dr. Merrill regularly, she stated that her PMD Dr. Willis did Consult placed for Dr. Merrill 01/13/19 for clarification of this issue and for follow up as she has not been to his office for check up as she stated "I am lazy" 7). Hx Hyperlipidemia Status: Chronic Crestor 10 mg PO HS 8). Hx Chronic Right LE DVT S/P IVC Filter Status: Chronic Patient stated that she had an IVC Filter placed at this institution many 8-9 years ago and was on Coumadin for 1 year and then was taken off of it She states that she is currently not on any anticoagulation for this issue and that her PMD Dr. Willis is aware 9). Hx Major Depression/Anxiety Status: Chronic Cymbalta 90 mg PO 1x/day Xanax 0.5 mg PO Q8H PRN Anxiety Seen by Psychiatry Dr. Orellana this admission 10). Hx DM 1 Status: Chronic NO history of DM indicated on the last few H&Ps Patient revealed 01/13/19 that she had DM 1 after explaining to her that her Accuchecks were high (she is on steroids but too high for being on steroids) She stated today that she took Novolog (70/30) 10 units with breakfast and Novolog (70/30) 3 units with dinner and this has been started 01/13/19. Continue RISS ACHS and Hypoglycemic protocol HgBA1C 7.5 11). Hx Nicotine Addiction Status: Chronic Continues to smoke 2 cigarettes per day despite her chronic medical conditions She is fully aware of the effects on her health She was counseled the first time that I saw her during this admission. Provide patient with information for [place] [id number] [phone] information upon discharge for resources in her area for help 12). Diarrhea Status: Acute Experienced 3 to 4 watery bowel movements a day after being given Kayexalate when K was elevated therefore C. diff toxin was ordered 01/13/19 C. diff toxin 01/13/19 is negative She had soft brown bowel movement 01/14/19 13). Prophylaxis Heparin 5,000 Units SC Q8H Lactobacillus 1 capsule PO 2x/day while on antibiotics and for 30 additional days after last dose of antibiotics Protonix 40 mg PO 1x/day while on the steroids and then the Protonix should be discontinued Disposition: Patient had Left Chest George Cath removal 01/14/19 earlier than expected by Surgery Team George Cath will have to be replaced after 24 to 48 hours after removal and as long as repeat Blood Culture 01/12/19 is finalized negative May be discharged once George Cath is replaced and repeat Blood Culture 01/12/19 is finalized as negative Will need to coordinate with ID Dr. Hutchins as to length of antibiotic for the Gram Positive Bacteremia F/U Dr. Merrill concerning issue of whether this patient actually has Heart Failure Outpatient appointment with Deaf Interpreter Dr. Matos 01/23/19 Provide patient with information for [place] [employer] [phone] information upon discharge for resources in her area for help F/U PMD Dr. Willis for coordination of her health care Kip Sesay D.O.
[2019-01-14] MEDS: Lactobacillus Acidophilus 500 MU Cap PO SCH ×3 (09:02→18:23)
[2019-01-14] MEDS: Pantoprazole 40 mg EC Tab PO SCH ×2 (09:03→14:17)
[2019-01-14 09:09] LABS: BASO % 0.3 % (0.0-2.0); EOS # 0.3 K/uL (0.0-0.7); EOS % 1.5 % (0.0-4.0); HEMOGLOBIN 12.3 g/dL (11.0-16.0); LYMPH # 2.6 K/uL (1.0-4.3); LYMPH % 14.8 % (20.0-40.0); MEAN CELL VOLUME 82.4 fL (81.0-99.0); MEAN CORPUSCULAR HGB CONC 31.6 g/dL (33.0-37.0); MEAN PLATELET VOLUME 8.3 fL (7.2-11.7); MONO # 1.5 K/uL (0.0-0.8); MONO % 8.1 % (0.0-10.0); NEUT # 13.5 K/uL (1.8-7.0); NEUT % 75.3 % (50.0-75.0); RBC 4.75 Mil/uL (3.80-5.20); RED CELL DISTRIBUTION WIDTH 17.1 % (11.5-14.5); WHITE BLOOD COUNT 17.9 K/uL (4.8-10.8)
[2019-01-14 09:35] LABS: ALB/GLOB RATIO 1.2 (1.0-2.1); ALBUMIN 3.7 g/dL (3.5-5.0); ALT/SGPT 33 U/L (9-52); AST/SGOT 35 U/L (14-36); BLOOD UREA NITROGEN 21 mg/dL (7-17); CALCIUM 8.6 mg/dl (8.6-10.4); GFR NON-AFRICAN AMERICAN > 60
[2019-01-14] MEDS ORDERED: Lidocaine Hydrochloride 10 ML INJ ONE ×2 (11:28→11:45)
[2019-01-14] MEDS ORDERED: Midazolam 2 MG/2 ML VIAL ONE (11:43)
--- NOTE | 2019-01-14 11:49 | CP.PCM.CON ---
History of Present Illness - History of Present Illness History of Present Illness: CC: Cardiac evaluation Patient is a 58 year old female with PMHx asthma, COPD, Lupus , RA, CHF, HTN, HLD, osteoporosis, anxiety, bipolar, and depression who presents to ED with complaint of whole-body pain. Patient states that she takes Tylenol with codeine for pain at home, but ran out of her prescription before her appointment with her Yard Rigger, which was scheduled for 01/12. She had an appointment with Dr. Willis today, but states that he does not fill her RX for the Tylenol #4. She has also been out of her ventolin and has been mildly short of breath. She did admit subjective fevers/chills when asked. Denies abdominal pain, nausea, vomiting, diarrhea, dysuria, increased frequency. Also patient did admit to telling ER doctor that she wanted to kill herself because of the pain. PMHx: Asthma, COPD, Lupus , RA, CHF, HTN, HLD, osteoporosis, Anxiety, bipolar, depression SxH: cholecystectomy, tonsillectomy, IVC filter placement, c section SocH: 2 cigs/day, smoked since age 17 - used to smoke more, cut down since develoiping COPD. Rare/occasional etoh. Denies recreational drug use FamH: mom DM, asthma, arthritis, atherosclerosis. dad , cirrhosis Allergies: dilaudid, mependine Meds: - Ventolin 2 puff q6h PRN - calcium carbonate 500 daily - Folic Acid 1mg PO daily - Plaquenil 200mg PO BID - Methotrexate 2.5mg 6 tabs PO on Tuesday - tylenol #4 300/30 Q8 PRN for pain - Digoxin 0.125mg PO daily - Cymbalta 60mg PO daily - Xanax 0.5mg PO TID PRN anxiety PMD: Dr. Willis Present on Admission - Present on Admission Any Indicators Present on Admission: No Review of Systems - Constitutional Constitutional: Chills, Fever - EENT Eyes: absent: Blurred Vision, Diplopia Ears: absent: Dizziness Nose/Mouth/Throat: absent: Nasal Congestion, Nasal Discharge - Cardiovascular Cardiovascular: Pedal Edema. absent: Chest Pain, Dyspnea, Palpitations - Respiratory Respiratory: absent: Cough, Dyspnea - Gastrointestinal Gastrointestinal: absent: Diarrhea, Nausea, Vomiting - Genitourinary Genitourinary: absent: Dysuria, Flank Pain, Urinary Frequency, Urinary Urgency - Musculoskeletal Musculoskeletal: Back Pain, Myalgias, Neck Pain, Stiffness - Neurological Neurological: absent: Confusion, Dizziness, Numbness, Tingling - Psychiatric Psychiatric: Anxiety, Suicidal Ideation Meds Allergies/Adverse Reactions: Allergies Allergy/AdvReac Type Severity Reaction Status Date / Time hydromorphone HCl Allergy Severe ANAPHYLAXIS Verified 10/25/18 14:30 [From Dilaudid] meperidine HCl [From Demerol] Allergy Severe ANAPHYLAXIS Verified 10/25/18 14:30 Physical Exam - Constitutional Appears: Non-toxic, No Acute Distress - Head Exam Head Exam: ATRAUMATIC, NORMOCEPHALIC - Eye Exam Eye Exam: EOMI, Normal appearance - ENT Exam ENT Exam: Mucous Membranes Moist - Respiratory Exam Respiratory Exam: Wheezes (mild wheezes throughout), NORMAL BREATHING PATTERN. absent: Rales, Rhonchi - Cardiovascular Exam Cardiovascular Exam: REGULAR RHYTHM, +S1, +S2 - GI/Abdominal Exam GI & Abdominal Exam: Normal Bowel Sounds, Soft. absent: Distended, Rebound, Tenderness Additional comments: Central obesity - Extremities Exam Extremities exam: Negative for: pedal edema, tenderness - Neurological Exam Neurological exam: Alert, CN II-XII Intact, Oriented x3 - Psychiatric Exam Psychiatric exam: Anxious, Normal Affect - Skin Skin Exam: Dry, Intact Past Patient History - Infectious Disease Hx of Infectious Diseases: None - Past Medical History & Family History Past Medical History?: Yes - Past Social History Smoking Status: Light Smoker < 10 Cigarettes Daily - CARDIAC Hx Cardia Arrhythmia: Yes Hx Congestive Heart Failure: Yes Hx Hypercholesterolemia: Yes Hx Hypertension: Yes - PULMONARY Hx Asthma: Yes Hx Chronic Obstructive Pulmonary Disease (COPD): Yes Hx Emphysema: Yes Hx Sleep Apnea: Yes - NEUROLOGICAL Hx Neurological Disorder: No - HEENT Hx HEENT Problems: No - RENAL Hx Chronic Kidney Disease: No - ENDOCRINE/METABOLIC Hx Diabetes Mellitus Type 2: Yes Hx Systemic Lupus Erythematosus: Yes - HEMATOLOGICAL/ONCOLOGICAL Hx Anemia: Yes - INTEGUMENTARY Hx Dermatological Problems: No - MUSCULOSKELETAL/RHEUMATOLOGICAL Hx Arthritis: Yes Hx Osteoporosis: Yes Hx Rheumatoid Arthritis: Yes - GASTROINTESTINAL Hx Gastrointestinal Disorders: No - GENITOURINARY/GYNECOLOGICAL Hx Genitourinary Disorders: No - PSYCHIATRIC Hx Anxiety: Yes Hx Bipolar Disorder: Yes Hx Depression: Yes Hx Schizophrenia: Yes Hx Substance Use: No - SURGICAL HISTORY Hx Cholecystectomy: Yes Hx Tonsillectomy: Yes - ANESTHESIA Hx Anesthesia: Yes Hx Anesthesia Reactions: No Hx Malignant Hyperthermia: No Meds Allergies/Adverse Reactions: Allergies Allergy/AdvReac Type Severity Reaction Status Date / Time hydromorphone HCl Allergy Severe ANAPHYLAXIS Verified 10/25/18 14:30 [From Dilaudid] meperidine HCl [From Demerol] Allergy Severe ANAPHYLAXIS Verified 10/25/18 14:30 - Medications Medications: Current Medications Acetaminophen (Tylenol 325mg Tab) 650 mg PO Q6 PRN PRN Reason: Pain, Mild (1-3) Acetaminophen/Codeine Phosphate (Tylenol/Codeine 300 Mg/30 Mg) 1 ea PO Q12 PRN PRN Reason: Pain, moderate (4-7) Last Admin: 01/11/19 16:33 Dose: 1 ea Alprazolam (Xanax) 0.5 mg PO Q8H PRN PRN Reason: Anxiety Last Admin: 01/14/19 04:02 Dose: 0.5 mg Calcium Carbonate (Oscal) 500 mg PO DAILY [facility] Last Admin: 01/14/19 09:02 Dose: Not Given Dextrose (Dextrose 50% Inj) 0 ml IV STAT PRN; Protocol PRN Reason: Hypoglycemia Protocol Dextrose (Glutose 15) 0 gm PO ONCE PRN; Protocol PRN Reason: Hypoglycemia Protocol Digoxin (Digoxin) 0.125 mg PO DAILY@1800 [facility] Last Admin: 01/13/19 17:16 Dose: 0.125 mg Duloxetine HCl (Cymbalta) 90 mg PO DAILY [facility] Last Admin: 01/14/19 09:02 Dose: Not Given Fluticasone/Vilanterol (Breo Ellipta 200-25 Mcg Inh) 1 puff INH RQD [facility] Last Admin: 01/14/19 07:45 Dose: 1 puff Folic Acid (Folic Acid) 1 mg PO DAILY [facility] Last Admin: 01/14/19 09:02 Dose: Not Given Glucagon (Glucagen Diagnostic Kit) 0 mg IM STAT PRN; Protocol PRN Reason: Hypoglycemia Protocol Heparin Sodium (Porcine) (Heparin) 5,000 units SC Q8 [facility] Last Admin: 01/14/19 06:08 Dose: 5,000 units Hydroxychloroquine Sulfate (Plaquenil) 200 mg PO BID [facility]; Protocol Last Admin: 01/14/19 09:03 Dose: Not Given Piperacillin Sod/Tazobactam (Sod 3.375 gm/ Sodium Chloride) 100 mls @ 200 mls/hr IVPB Q6H TC; Protocol Last Admin: 01/14/19 10:08 Dose: 200 mls/hr Vancomycin HCl 1,000 mg/ (Sodium Chloride) 250 mls @ 166.6 mls/hr IVPB Q12H TC; Protocol Last Admin: 01/14/19 00:35 Dose: 166.6 mls/hr Dextrose (Dextrose 5% In Water 1000 Ml) 1,000 mls @ 0 mls/hr IV .Q0M PRN; Protocol PRN Reason: Hypoglycemia Protocol Insulin Human Isoph/Insulin Regular (Novolin 70/30 (70/30 Units/Ml) 10 Ml) 10 units SC ACB [facility] Last Admin: 01/14/19 08:34 Dose: Not Given Insulin Human Isoph/Insulin Regular (Novolin 70/30 (70/30 Units/Ml) 10 Ml) 3 units SC ACD [facility] Last Admin: 01/13/19 17:10 Dose: 3 unit Insulin Human Regular (Novolin R) 0 unit SC ACHS [facility]; Protocol Last Admin: 01/14/19 11:15 Dose: Not Given Lactobacillus Acidophilus (Lactobacillus) 1 cap PO BID [facility] Last Admin: 01/14/19 09:02 Dose: Not Given Methotrexate (Methotrexate) 15 mg PO QWK [facility] Last Admin: 01/14/19 09:02 Dose: Not Given Oseltamivir Phosphate (Tamiflu Cap) 75 mg PO BID [facility]; Protocol Stop: 01/15/19 18:00 Last Admin: 01/14/19 09:03 Dose: Not Given Pantoprazole Sodium (Protonix Ec Tab) 40 mg PO DAILY [facility] Last Admin: 01/14/19 09:03 Dose: Not Given Prednisone (Prednisone Tab) 40 mg PO ONCE ONE Stop: 01/15/19 11:01 Prednisone (Prednisone Tab) 30 mg PO ONCE ONE Stop: 01/16/19 11:01 Prednisone (Prednisone Tab) 20 mg PO ONCE ONE Stop: 01/17/19 11:01 Prednisone (Prednisone Tab) 10 mg PO ONCE ONE Stop: 01/18/19 11:01 Rosuvastatin Calcium (Crestor) 10 mg PO HS [facility] Last Admin: 01/13/19 21:17 Dose: 10 mg Trazodone HCl (Desyrel) 100 mg PO HS [facility] Last Admin: 01/13/19 21:24 Dose: 100 mg Results - Vital Signs Recent Vital Signs: Last Vital Signs Temp 98.3 F 01/14/19 07:00 Pulse 85 01/14/19 08:59 Resp 20 01/14/19 07:00 BP 128/73 01/14/19 07:00 Pulse Ox 94 L 01/14/19 07:00 - Labs Result Diagrams: 01/14/19 08:05 01/14/19 08:05 Labs: Laboratory Results - last 24 hr 01/13/19 01/13/19 01/13/19 05:51 11:47 11:57 WBC RBC Hgb Hct MCV MCH MCHC RDW Plt Count MPV Neut % (Auto) Lymph % (Auto) [place] % (Auto) Eos % (Auto) Baso % (Auto) Neut # (Auto) Lymph # (Auto) [place] # (Auto) Eos # (Auto) Baso # (Auto) Sodium Potassium Chloride Carbon Dioxide Anion Gap BUN Creatinine Est GFR ( Amer) Est GFR (Non-Af Amer) POC Glucose (mg/dL) 236 H 394 H Random Glucose Hemoglobin A1c Calcium Total Bilirubin AST ALT Alkaline Phosphatase Total Protein Albumin Globulin Albumin/Globulin Ratio C. difficile Ag & Toxin Negative 01/13/19 01/13/19 01/14/19 16:22 21:03 06:36 WBC RBC Hgb Hct MCV MCH MCHC RDW Plt Count MPV Neut % (Auto) Lymph % (Auto) [place] % (Auto) Eos % (Auto) Baso % (Auto) Neut # (Auto) Lymph # (Auto) [place] # (Auto) Eos # (Auto) Baso # (Auto) Sodium Potassium Chloride Carbon Dioxide Anion Gap BUN Creatinine Est GFR ( Amer) Est GFR (Non-Af Amer) POC Glucose (mg/dL) 337 H 328 H 216 H Random Glucose Hemoglobin A1c Calcium Total Bilirubin AST ALT Alkaline Phosphatase Total Protein Albumin Globulin Albumin/Globulin Ratio C. difficile Ag & Toxin 01/14/19 01/14/19 01/14/19 08:05 08:05 08:05 WBC 17.9 H RBC 4.75 Hgb 12.3 Hct 39.1 MCV 82.4 MCH 26.0 L MCHC 31.6 L RDW 17.1 H Plt Count 268 MPV 8.3 Neut % (Auto) 75.3 H Lymph % (Auto) 14.8 L [place] % (Auto) 8.1 Eos % (Auto) 1.5 Baso % (Auto) 0.3 Neut # (Auto) 13.5 H Lymph # (Auto) 2.6 [place] # (Auto) 1.5 H Eos # (Auto) 0.3 Baso # (Auto) 0.0 Sodium 138 Potassium 3.8 Chloride 97 L Carbon Dioxide 36 H Anion Gap 9 L BUN 21 H Creatinine 0.9 Est GFR ( Amer) > 60 Est GFR (Non-Af Amer) > 60 POC Glucose (mg/dL) Random Glucose 156 H Hemoglobin A1c 7.5 H D Calcium 8.6 Total Bilirubin 0.2 AST 35 ALT 33 Alkaline Phosphatase 94 Total Protein 6.8 Albumin 3.7 Globulin 3.1 Albumin/Globulin Ratio 1.2 C. difficile Ag & Toxin 01/14/19 10:56 WBC RBC Hgb Hct MCV MCH MCHC RDW Plt Count MPV Neut % (Auto) Lymph % (Auto) [place] % (Auto) Eos % (Auto) Baso % (Auto) Neut # (Auto) Lymph # (Auto) [place] # (Auto) Eos # (Auto) Baso # (Auto) Sodium Potassium Chloride Carbon Dioxide Anion Gap BUN Creatinine Est GFR ( Amer) Est GFR (Non-Af Amer) POC Glucose (mg/dL) 150 H Random Glucose Hemoglobin A1c Calcium Total Bilirubin AST ALT Alkaline Phosphatase Total Protein Albumin Globulin Albumin/Globulin Ratio C. difficile Ag & Toxin Assessment & Plan - Assessment and Plan (Free Text) Assessment: 1). Leukocytosis Likely Secondary to Gram (+) Bacteremia Status: Acute Improving Vancomycin 1 gm IV Q12H Follow up Vancomycin Trough at 11:30 PM 01/14/19 Zosyn 3.375 gm IV Q6H Tamiflu 75 mg PO 2x/day with last dose on 01/15/18 at 6 PM: started upon admission considering presentation even though Rapid Flu negative considering whole body aches (although also could have been secondary to Lupus Exacerbation), low grade fever, patient revealed she did not get the flu vaccine, and that 25% of the time Rapid Flu can be falsely negative. Blood Culture 01/09/19 (+) for Gram positive bactermia: F/U sensitivities Repeat Blood Culture 01/12/19: negative at 24 hours Patient had Left Chest George Cath removal 01/14/19 earlier than expected by Surgery Team: will need to have 24 to 48 hours free of port before insertion of new George Cath (patient has original in place due to difficult IV access in the past) ID Dr. Hutchins 2). SI at the time of Admission Status: Resolved Seen by Psychiatry Dr. Orellana 3). Hx COPD/Asthma Excerbation Status: Acute Uses unspecified dosage of Symbicort at home Uses and has home Oxygen Follows with Dr. Choi as an outpatient Breo Ellipta 25/100 mcg 1 PO INH 1x/day Duoneb Q6H around the clock Solumedrol D/C on 01/13/19 as her SOB/Wheezing/Cough has improved and was back at base line Prednisone Taper 66-9-43-20-10 mg started on 01/14/19 and will end on 01/18/19 Patient uses BiPap at night but does not know home settings: she is currently on 08/11 at 40% at night and nursing order placed to make sure patient gets this Consult placed for Dr. Choi but he is away and Dr. Apple is covering 4). Lupus Exacerbation Status: Resolved Exacerbation of Lupus was certainly a possibility considering her presentation Her symptoms have essentially resolved Solumedrol has been discontinued 01/13/19 and Prednisone Taper 73-2-85-20-10 mg started on 01/14/19 and will end on 01/18/19 Hydroxycholorquin 200 mg PO 2x/day She has scheduled appointment with her Yard Rigger Dr. Matos for 01/23/19 5). Hx RA Status: Chronic Methotrexate 15 mg PO once a week She has scheduled appointment with her Yard Rigger Dr. Matos for 01/23/19 6). Hx of CHF of unspecified type ? Status: Chronic This is actually questionable as Echocardiogram 01/12/19 did NOT indicate Heart Failure However patient is on Digoxin 0.125 mg PO 1x/day She states that her outpatient Doctor Of Naprapathy is Dr. Merrill whom she has not seen in over 1 1/2 years When questioned 01/13/19 who provides her with refills on her Digoxin if she has not been seeing Dr. Merrill regularly, she stated that her PMD Dr. Willis did Consult placed for Dr. Merrill 01/13/19 for clarification of this issue and for follow up as she has not been to his office for check up as she stated "I am lazy" 7). Hx Hyperlipidemia Status: Chronic Crestor 10 mg PO HS 8). Hx Chronic Right LE DVT S/P IVC Filter Status: Chronic Patient stated that she had an IVC Filter placed at this institution many 8-9 years ago and was on Coumadin for 1 year and then was taken off of it She states that she is currently not on any anticoagulation for this issue and that her PMD Dr. Willis is aware 9). Hx Major Depression/Anxiety Status: Chronic Cymbalta 90 mg PO 1x/day Xanax 0.5 mg PO Q8H PRN Anxiety Seen by Psychiatry Dr. Orellana this admission 10). Hx DM 1 Status: Chronic NO history of DM indicated on the last few H&Ps Patient revealed 01/13/19 that she had DM 1 after explaining to her that her Accuchecks were high (she is on steroids but too high for being on steroids) She stated today that she took Novolog (70/30) 10 units with breakfast and Novolog (70/30) 3 units with dinner and this has been started 01/13/19. Continue RISS ACHS and Hypoglycemic protocol HgBA1C 7.5 11). Hx Nicotine Addiction Status: Chronic Continues to smoke 2 cigarettes per day despite her chronic medical conditions She is fully aware of the effects on her health She was counseled the first time that I saw her during this admission. Provide patient with information for [place] Quitline [phone] information upon discharge for resources in her area for help 12). Diarrhea Status: Acute Experienced 3 to 4 watery bowel movements a day after being given Kayexalate wh en K was elevated therefore C. diff toxin was ordered 01/13/19 C. diff toxin 01/13/19 is negative She had soft brown bowel movement 01/14/19 13). Prophylaxis Heparin 5,000 Units SC Q8H Lactobacillus 1 capsule PO 2x/day while on antibiotics and for 30 additional days after last dose of steroids Protonix 40 mg PO 1x/day while on the steroids Disposition: Patient had Left Chest George Cath removal 01/14/19 earlier than expected by Surgery Team George Cath will have to be replaced after 24 to 48 hours after removal and as long as repeat Blood Culture 01/12/19 is finalized negative May be discharged once George Cath is replaced and repeat Blood Culture 01/12/19 is finalized as negative Will need to coordinate with ID Dr. Hutchins as to length of antibiotic for the Gram Positive Bacteremia F/U Dr. Merrill concerning issue of whether this patient actually has Heart Failure Outpatient appointment with Yard Rigger Dr. Matos 01/23/19 Provide patient with information for [place] Quitline [phone] information upon discharge for resources in her area for help F/U PMD Dr. Willis for coordination of her health care I do not see the need for Digoxin for this patient Can d/c Digoxin Follow up with my office in 1 month
--- NOTE | 2019-01-14 12:06 | PCM.SURG1 ---
Surgeon's Initial Post Op Note - Surgeon's Notes Surgeon: Dr. Tavera Secure Software Assessor: Dr. Dey PGy4 Type of Anesthesia: IV Sedation Pre-Operative Diagnosis: Infected Port-a-cath Operative Findings: same Post-Operative Diagnosis: same Operation Performed: Removal of Port-a-cath Specimen/Specimens Removed: port Estimated Blood Loss: EBL {In ML}: 0 Blood Products Given: N/A Drains Used: No Drains Post-Op Condition: Good Date of Surgery/Procedure: 01/14/19 Time of Surgery/Procedure: 12:06
[2019-01-14] MEDS ORDERED: Sodium Chloride 0.9% 250 ML IV ONE (12:13)
[2019-01-14] MEDS ORDERED: Aluminum Hydroxide/Magnesium Hydroxide Susp (30 mL) PO PRN (12:34)
--- NOTE | 2019-01-14 16:32 | CP.PCM.PCO ---
Physician Communication Note - Physician Communication Note Physician Communication Note: Please see above
[2019-01-14] MEDS: Digoxin 125 mcg (0.125 mg) Tab PO SCH (17:33)
[2019-01-14] MEDS: Acetaminophen-Codeine 300/30 mg Tab PO PRN (17:38)
--- NOTE | 2019-01-14 18:29 | CP.PCM.PN ---
Subjective - Date & Time of Evaluation Date of Evaluation: 01/14/19 Time of Evaluation: 14:40 - Subjective Subjective: dictated Objective - Vital Signs/Intake and Output Vital Signs (last 24 hours): Temp Pulse Resp BP Pulse Ox 99.2 F 84 22 136/87 97 01/14/19 15:00 01/14/19 15:00 01/14/19 17:10 01/14/19 15:00 01/14/19 17:10 Intake and Output: 01/14/19 01/14/19 06:59 18:59 Intake Total 208 Balance 208 - Medications Medications: Current Medications Acetaminophen (Tylenol 325mg Tab) 650 mg PO Q6 PRN PRN Reason: Pain, Mild (1-3) Acetaminophen/Codeine Phosphate (Tylenol/Codeine 300 Mg/30 Mg) 1 ea PO Q12 PRN PRN Reason: Pain, moderate (4-7) Last Admin: 01/14/19 17:38 Dose: 1 ea Al Hydrox/Mg Hydrox/Simethicone (Maalox 30 Ml) 30 ml PO Q6H PRN PRN Reason: Indigestion / Heartburn Last Admin: 01/14/19 12:40 Dose: 30 ml Alprazolam (Xanax) 0.5 mg PO Q8H PRN PRN Reason: Anxiety Last Admin: 01/14/19 14:16 Dose: 0.5 mg Calcium Carbonate (Oscal) 500 mg PO DAILY [facility] Last Admin: 01/14/19 14:18 Dose: 500 mg Dextrose (Dextrose 50% Inj) 0 ml IV STAT PRN; Protocol PRN Reason: Hypoglycemia Protocol Dextrose (Glutose 15) 0 gm PO ONCE PRN; Protocol PRN Reason: Hypoglycemia Protocol Digoxin (Digoxin) 0.125 mg PO DAILY@1800 [facility] Last Admin: 01/14/19 17:33 Dose: 0.125 mg Duloxetine HCl (Cymbalta) 90 mg PO DAILY [facility] Last Admin: 01/14/19 14:18 Dose: 90 mg Fluticasone/Vilanterol (Breo Ellipta 200-25 Mcg Inh) 1 puff INH RQD [facility] Last Admin: 01/14/19 07:45 Dose: 1 puff Folic Acid (Folic Acid) 1 mg PO DAILY [facility] Last Admin: 01/14/19 14:19 Dose: 1 mg Glucagon (Glucagen Diagnostic Kit) 0 mg IM STAT PRN; Protocol PRN Reason: Hypoglycemia Protocol Heparin Sodium (Porcine) (Heparin) 5,000 units SC Q8 [facility] Last Admin: 01/14/19 06:08 Dose: 5,000 units Hydroxychloroquine Sulfate (Plaquenil) 200 mg PO BID [facility]; Protocol Last Admin: 01/14/19 17:38 Dose: 200 mg Piperacillin Sod/Tazobactam (Sod 3.375 gm/ Sodium Chloride) 100 mls @ 200 mls/hr IVPB Q6H TC; Protocol Last Admin: 01/14/19 16:02 Dose: 200 mls/hr Vancomycin HCl 1,000 mg/ (Sodium Chloride) 250 mls @ 166.6 mls/hr IVPB Q12H TC; Protocol Last Admin: 01/14/19 11:35 Dose: 125 mls Dextrose (Dextrose 5% In Water 1000 Ml) 1,000 mls @ 0 mls/hr IV .Q0M PRN; Protocol PRN Reason: Hypoglycemia Protocol Insulin Human Isoph/Insulin Regular (Novolin 70/30 (70/30 Units/Ml) 10 Ml) 10 units SC ACB [facility] Last Admin: 01/14/19 08:34 Dose: Not Given Insulin Human Isoph/Insulin Regular (Novolin 70/30 (70/30 Units/Ml) 10 Ml) 3 units SC ACD [facility] Last Admin: 01/14/19 16:04 Dose: 3 unit Insulin Human Regular (Novolin R) 0 unit SC ACHS [facility]; Protocol Last Admin: 01/14/19 18:21 Dose: 2 unit Lactobacillus Acidophilus (Lactobacillus) 1 cap PO BID [facility] Last Admin: 01/14/19 18:23 Dose: 1 cap Methotrexate (Methotrexate) 15 mg PO QWK [facility] Last Admin: 01/14/19 14:17 Dose: 15 mg Oseltamivir Phosphate (Tamiflu Cap) 75 mg PO BID [facility]; Protocol Stop: 01/15/19 18:00 Last Admin: 01/14/19 17:33 Dose: 75 mg Pantoprazole Sodium (Protonix Ec Tab) 40 mg PO DAILY [facility] Last Admin: 01/14/19 14:17 Dose: 40 mg Prednisone (Prednisone Tab) 40 mg PO ONCE ONE Stop: 01/15/19 11:01 Prednisone (Prednisone Tab) 30 mg PO ONCE ONE Stop: 01/16/19 11:01 Prednisone (Prednisone Tab) 20 mg PO ONCE ONE Stop: 01/17/19 11:01 Prednisone (Prednisone Tab) 10 mg PO ONCE ONE Stop: 01/18/19 11:01 Rosuvastatin Calcium (Crestor) 10 mg PO HS TC Last Admin: 01/13/19 21:17 Dose: 10 mg Trazodone HCl (Desyrel) 100 mg PO HS [facility] Last Admin: 01/13/19 21:24 Dose: 100 mg - Labs Labs: 01/14/19 08:05 01/14/19 08:05 PT 13.5 SECONDS (9.7-12.2) H 01/10/19 06:18 INR 1.2 01/10/19 06:18 APTT 34 SECONDS (21-34) 01/10/19 06:18
--- NOTE | 2019-01-14 20:43 | CP.PCM.PN ---
Subjective - Date & Time of Evaluation Date of Evaluation: 01/14/19 Time of Evaluation: 09:20 - Subjective Subjective: Patient seen and evaluated denies chest pain and dyspnea Review of Systems - Constitutional Constitutional: Chills, Fever - EENT Eyes: absent: Blurred Vision, Diplopia Ears: absent: Dizziness Nose/Mouth/Throat: absent: Nasal Congestion, Nasal Discharge - Cardiovascular Cardiovascular: Pedal Edema. absent: Chest Pain, Dyspnea, Palpitations - Respiratory Respiratory: absent: Cough, Dyspnea - Gastrointestinal Gastrointestinal: absent: Diarrhea, Nausea, Vomiting - Genitourinary Genitourinary: absent: Dysuria, Flank Pain, Urinary Frequency, Urinary Urgency - Musculoskeletal Musculoskeletal: Back Pain, Myalgias, Neck Pain, Stiffness - Neurological Neurological: absent: Confusion, Dizziness, Numbness, Tingling - Psychiatric Psychiatric: Anxiety, Suicidal Ideation Meds Allergies/Adverse Reactions: Allergies Allergy/AdvReac Type Severity Reaction Status Date / Time hydromorphone HCl Allergy Severe ANAPHYLAXIS Verified 10/25/18 14:30 [From Dilaudid] meperidine HCl [From Demerol] Allergy Severe ANAPHYLAXIS Verified 10/25/18 14:30 Physical Exam - Constitutional Appears: Non-toxic, No Acute Distress - Head Exam Head Exam: ATRAUMATIC, NORMOCEPHALIC - Eye Exam Eye Exam: EOMI, Normal appearance - ENT Exam ENT Exam: Mucous Membranes Moist - Respiratory Exam Respiratory Exam: Wheezes (mild wheezes throughout), NORMAL BREATHING PATTERN. absent: Rales, Rhonchi - Cardiovascular Exam Cardiovascular Exam: REGULAR RHYTHM, +S1, +S2 - GI/Abdominal Exam GI & Abdominal Exam: Normal Bowel Sounds, Soft. absent: Distended, Rebound, Tenderness Additional comments: Central obesity - Extremities Exam Extremities exam: Negative for: pedal edema, tenderness - Neurological Exam Neurological exam: Alert, CN II-XII Intact, Oriented x3 - Psychiatric Exam Psychiatric exam: Anxious, Normal Affect - Skin Skin Exam: Dry, Intact Assessment & Plan - Assessment and Plan (Free Text) Assessment: 1). Leukocytosis Likely Secondary to Gram (+) Bacteremia Status: Acute Improving Vancomycin 1 gm IV Q12H Follow up Vancomycin Trough at 11:30 PM 01/14/19 Zosyn 3.375 gm IV Q6H Tamiflu 75 mg PO 2x/day with last dose on 01/15/18 at 6 PM: started upon admission considering presentation even though Rapid Flu negative considering whole body aches (although also could have been secondary to Lupus Exacerbation), low grade fever, patient revealed she did not get the flu vaccine, and that 25% of the time Rapid Flu can be falsely negative. Blood Culture 01/09/19 (+) for Gram positive bactermia: F/U sensitivities Repeat Blood Culture 01/12/19: negative at 24 hours Patient had Left Chest George Cath removal 01/14/19 earlier than expected by Surgery Team: will need to have 24 to 48 hours free of port before insertion of new George Cath (patient has original in place due to difficult IV access in the past) ID Dr. Hutchins 2). SI at the time of Admission Status: Resolved Seen by Psychiatry Dr. Orellana 3). Hx COPD/Asthma Excerbation Status: Acute Uses unspecified dosage of Symbicort at home Uses and has home Oxygen Follows with Dr. Choi as an outpatient Breo Ellipta 25/100 mcg 1 PO INH 1x/day Duoneb Q6H around the clock Solumedrol D/C on 01/13/19 as her SOB/Wheezing/Cough has improved and was back at base line Prednisone Taper 97-6-08-20-10 mg started on 01/14/19 and will end on 01/18/19 Patient uses BiPap at night but does not know home settings: she is currently on 08/11 at 40% at night and nursing order placed to make sure patient gets this Consult placed for Dr. Choi but he is away and Dr. Apple is covering 4). Lupus Exacerbation Status: Resolved Exacerbation of Lupus was certainly a possibility considering her presentation Her symptoms have essentially resolved Solumedrol has been discontinued 01/13/19 and Prednisone Taper 93-0-32-20-10 mg started on 01/14/19 and will end on 01/18/19 Hydroxycholorquin 200 mg PO 2x/day She has scheduled appointment with her Cds Sales Advisor Dr. Matos for 01/23/19 5). Hx RA Status: Chronic Methotrexate 15 mg PO once a week She has scheduled appointment with her Cds Sales Advisor Dr. Matos for 01/23/19 6). Hx of CHF of unspecified type ? Status: Chronic This is actually questionable as Echocardiogram 01/12/19 did NOT indicate Heart Failure However patient is on Digoxin 0.125 mg PO 1x/day She states that her outpatient [facility] is Dr. Merrill whom she has not seen in over 1 1/2 years When questioned 01/13/19 who provides her with refills on her Digoxin if she has not been seeing Dr. Merrill regularly, she stated that her PMD Dr. Willis did Consult placed for Dr. Merrill 01/13/19 for clarification of this issue and for follow up as she has not been to his office for check up as she stated "I am lazy" 7). Hx Hyperlipidemia Status: Chronic Crestor 10 mg PO HS 8). Hx Chronic Right LE DVT S/P IVC Filter Status: Chronic Patient stated that she had an IVC Filter placed at this institution many 8-9 years ago and was on Coumadin for 1 year and then was taken off of it She states that she is currently not on any anticoagulation for this issue and that her PMD Dr. Willis is aware 9). Hx Major Depression/Anxiety Status: Chronic Cymbalta 90 mg PO 1x/day Xanax 0.5 mg PO Q8H PRN Anxiety Seen by Psychiatry Dr. Orellana this admission 10). Hx DM 1 Status: Chronic NO history of DM indicated on the last few H&Ps Patient revealed 01/13/19 that she had DM 1 after explaining to her that her Accuchecks were high (she is on steroids but too high for being on steroids) She stated today that she took Novolog (70/30) 10 units with breakfast and Novolog (70/30) 3 units with dinner and this has been started 01/13/19. Continue RISS ACHS and Hypoglycemic protocol HgBA1C 7.5 11). Hx Nicotine Addiction Status: Chronic Continues to smoke 2 cigarettes per day despite her chronic medical conditions She is fully aware of the effects on her health She was counseled the first time that I saw her during this admission. Provide patient with information for [place] Quit[place] [phone] information upon discharge for resources in her area for help 12). Diarrhea Status: Acute Experienced 3 to 4 watery bowel movements a day after being given Kayexalate when K was elevated therefore C. diff toxin was ordered 01/13/19 C. diff toxin 01/13/19 is negative She had soft brown bowel movement 01/14/19 13). Prophylaxis Heparin 5,000 Units SC Q8H Lactobacillus 1 capsule PO 2x/day while on antibiotics and for 30 additional days after last dose of steroids Protonix 40 mg PO 1x/day while on the steroids Disposition: Patient had Left Chest George Cath removal 01/14/19 earlier than expected by Surgery Team George Cath will have to be replaced after 24 to 48 hours after removal and as long as repeat Blood Culture 01/12/19 is finalized negative May be discharged once George Cath is replaced and repeat Blood Culture 01/12/19 is finalized as negative Will need to coordinate with ID Dr. Hutchins as to length of antibiotic for the Gram Positive Bacteremia F/U Dr. Merrill concerning issue of whether this patient actually has Heart Failure Outpatient appointment with C[employer] Sales Advisor Dr. Matos 01/23/19 Provide patient with information for [place] Quitline [phone] information upon discharge for resources in her area for help F/U PMD Dr. Willis for coordination of her health care I do not see the need for Digoxin for this patient Can d/c Digoxin Follow up with my office in 1 month Objective - Vital Signs/Intake and Output Vital Signs (last 24 hours): Temp Pulse Resp BP Pulse Ox 99.2 F 84 22 136/87 97 01/14/19 15:00 01/14/19 15:00 01/14/19 17:10 01/14/19 15:00 01/14/19 17:10 Intake and Output: 01/14/19 01/15/19 18:59 06:59 Intake Total 208 Balance 208 - Medications Medications: Current Medications Acetaminophen (Tylenol 325mg Tab) 650 mg PO Q6 PRN PRN Reason: Pain, Mild (1-3) Acetaminophen/Codeine Phosphate (Tylenol/Codeine 300 Mg/30 Mg) 1 ea PO Q12 PRN PRN Reason: Pain, moderate (4-7) Last Admin: 01/14/19 17:38 Dose: 1 ea Al Hydrox/Mg Hydrox/Simethicone (Maalox 30 Ml) 30 ml PO Q6H PRN PRN Reason: Indigestion / Heartburn Last Admin: 01/14/19 12:40 Dose: 30 ml Alprazolam (Xanax) 0.5 mg PO Q8H PRN PRN Reason: Anxiety Last Admin: 01/14/19 14:16 Dose: 0.5 mg Calcium Carbonate (Oscal) 500 mg PO DAILY [facility] Last Admin: 01/14/19 14:18 Dose: 500 mg Dextrose (Dextrose 50% Inj) 0 ml IV STAT PRN; Protocol PRN Reason: Hypoglycemia Protocol Dextrose (Glutose 15) 0 gm PO ONCE PRN; Protocol PRN Reason: Hypoglycemia Protocol Digoxin (Digoxin) 0.125 mg PO DAILY@1800 [facility] Last Admin: 01/14/19 17:33 Dose: 0.125 mg Duloxetine HCl (Cymbalta) 90 mg PO DAILY [facility] Last Admin: 01/14/19 14:18 Dose: 90 mg Fluticasone/Vilanterol (Breo Ellipta 200-25 Mcg Inh) 1 puff INH RQD [facility] Last Admin: 01/14/19 07:45 Dose: 1 puff Folic Acid (Folic Acid) 1 mg PO DAILY [facility] Last Admin: 01/14/19 14:19 Dose: 1 mg Glucagon (Glucagen Diagnostic Kit) 0 mg IM STAT PRN; Protocol PRN Reason: Hypoglycemia Protocol Heparin Sodium (Porcine) (Heparin) 5,000 units SC Q8 [facility] Last Admin: 01/14/19 06:08 Dose: 5,000 units Hydroxychloroquine Sulfate (Plaquenil) 200 mg PO BID [facility]; Protocol Last Admin: 01/14/19 17:38 Dose: 200 mg Piperacillin Sod/Tazobactam (Sod 3.375 gm/ Sodium Chloride) 100 mls @ 200 mls/hr IVPB Q6H [facility]; Protocol Last Admin: 01/14/19 16:02 Dose: 200 mls/hr Vancomycin HCl 1,000 mg/ (Sodium Chloride) 250 mls @ 166.6 mls/hr IVPB Q12H [facility]; Protocol Last Admin: 01/14/19 11:35 Dose: 125 mls Dextrose (Dextrose 5% In Water 1000 Ml) 1,000 mls @ 0 mls/hr IV .Q0M PRN; Protocol PRN Reason: Hypoglycemia Protocol Insulin Human Isoph/Insulin Regular (Novolin 70/30 (70/30 Units/Ml) 10 Ml) 10 units SC ACB [facility] Last Admin: 01/14/19 08:34 Dose: Not Given Insulin Human Isoph/Insulin Regular (Novolin 70/30 (70/30 Units/Ml) 10 Ml) 3 units SC ACD [facility] Last Admin: 01/14/19 16:04 Dose: 3 unit Insulin Human Regular (Novolin R) 0 unit SC ACHS TC; Protocol Last Admin: 01/14/19 18:21 Dose: 2 unit Lactobacillus Acidophilus (Lactobacillus) 1 cap PO BID [facility] Last Admin: 01/14/19 18:23 Dose: 1 cap Methotrexate (Methotrexate) 15 mg PO QWK TC Last Admin: 01/14/19 14:17 Dose: 15 mg Oseltamivir Phosphate (Tamiflu Cap) 75 mg PO BID TC; Protocol Stop: 01/15/19 18:00 Last Admin: 01/14/19 17:33 Dose: 75 mg Pantoprazole Sodium (Protonix Ec Tab) 40 mg PO DAILY [facility] Last Admin: 01/14/19 14:17 Dose: 40 mg Prednisone (Prednisone Tab) 40 mg PO ONCE ONE Stop: 01/15/19 11:01 Prednisone (Prednisone Tab) 30 mg PO ONCE ONE Stop: 01/16/19 11:01 Prednisone (Prednisone Tab) 20 mg PO ONCE ONE Stop: 01/17/19 11:01 Prednisone (Prednisone Tab) 10 mg PO ONCE ONE Stop: 01/18/19 11:01 Rosuvastatin Calcium (Crestor) 10 mg PO HS [facility] Last Admin: 01/13/19 21:17 Dose: 10 mg Trazodone HCl (Desyrel) 100 mg PO HS [facility] Last Admin: 01/13/19 21:24 Dose: 100 mg - Labs Labs: 01/14/19 08:05 01/14/19 08:05 PT 13.5 SECONDS (9.7-12.2) H 01/10/19 06:18 INR 1.2 01/10/19 06:18 APTT 34 SECONDS (21-34) 01/10/19 06:18
--- NOTE | 2019-01-14 23:40 | PN ---
DATE: 01/14/2019 SUBJECTIVE: The patient was seen today. The patient had removal of the infected Port-A-Cath, which was removed today. She was little sedated, was not answering much questions. Otherwise, she said she was feeling better. She remains under treatment with the medications. PHYSICAL EXAMINATION: VITAL SIGNS: Her temperature was 99.2, pulse 84, blood pressure 136/87, respirations remain 22. HEENT: Head is atraumatic and normocephalic. On the left side, she has a dressing post removal of Port-A-Cath. LUNGS: Occasional wheeze, otherwise decreased breath sounds. Mild expiratory wheeze. HEART: S1 and S2, regular. ABDOMEN: Soft, nontender. No guarding, no rigidity present. EXTREMITIES: No edema. She is obese. LABORATORY DATA: White count is 17.9, hemoglobin 12.3, hematocrit 39.1, platelet count is 268. BUN is 21, creatinine is 0.9. Her cultures came back. The last cultures from 01/12/2019 are negative now. From 01/09/2019, she had oxacillin-sensitive Staph and it is very sensitive and this is resistant to penicillin, so we will change it to nafcillin, but she has also respiratory issues, so we will leave the Zosyn on for now. MEDICATIONS: She was getting Tylenol. She has been on heparin subcu, Plaquenil, Novolin, Lactobacillus and methotrexate. She is finishing her Tamiflu in a day or two, Protonix. She is on Zosyn. She remains on prednisone. ASSESSMENT AND PLAN: At this time, we will continue with Zosyn. I do not think there will be a need for vancomycin. We will check the labs. We will discontinue vancomycin. Elevated right hemidiaphragm, right marizol-prominence, patchy increased markings in right hilar and left region and left lung. She came in with Port-A-Cath sepsis, has lupus and also has acute exacerbation of chronic obstructive pulmonary disease. We will follow, also check the echo. Maritza Spann MD [facility] # [id number]
--- NOTE | 2019-01-15 00:06 | OP ---
PROCEDURE DATE: 01/14/2019 SURGEON: Kyaw Tavera MD [employer] REPRESENTATIVE: Salena Dey DO, PGY-4 PREOPERATIVE DIAGNOSIS: Infected Port-A-Cath. POSTOPERATIVE DIAGNOSIS: Infected Port-A-Cath. OPERATION: Removal of infected Port-A-Cath. INDICATIONS: This is a 58-year-old female who had a left-sided Port-A-Cath in place for approximately eight years. She presented to the hospital with leukocytosis and mild pain at the site of the port. She had positive blood cultures and it was felt that the port needed to be removed due to probable infection. DESCRIPTION OF PROCEDURE: The patient was placed on the operating table in a supine position. She was given light IV sedation. The left chest was prepped and draped in the usual sterile fashion. Prior to beginning the procedure, time-out was confirmed, verifying correct patient, procedure, site, and positioning. Approximately 5 mL of 1% lidocaine was injected into the skin overlying the subcutaneous port. A small incision was made and the port was gently dissected out of the subcutaneous tissue and removed from the chest. Hemostasis was obtained. There was no bleeding noted. There was no retained portions of the catheter noted. The skin of the incision was then closed with a running subcuticular suture of 5-0 Monocryl. Steri-Strips were applied and sterile dressing was applied. The patient tolerated the procedure well and was taken to the postanesthesia care unit in stable condition. Salena Dey DO Kyaw Tavera MD
[2019-01-15] MEDS: Piperacillin/Tazobact 3.375 GM in Sodium Chloride 100 ML IVPB SCH ×4 (03:59→21:31)
[2019-01-15] MEDS ORDERED: Loperamide Hydrochloride 1 mg/5 ml Cup PO ONE (05:28)
--- NOTE | 2019-01-15 07:43 | CP.PCM.PN ---
Subjective - Date & Time of Evaluation Date of Evaluation: 01/15/19 Time of Evaluation: 07:40 - Subjective Subjective: SURGERY NOTE FOR DR. ROSEN 58F seen and examined at bedside. Patient denied pain at site of prior portacath. Objective - Vital Signs/Intake and Output Vital Signs (last 24 hours): Temp Pulse Resp BP Pulse Ox 98.2 F 79 20 126/58 L 95 01/14/19 23:00 01/14/19 23:00 01/14/19 23:00 01/14/19 23:00 01/14/19 23:00 - Medications Medications: Current Medications Acetaminophen (Tylenol 325mg Tab) 650 mg PO Q6 PRN PRN Reason: Pain, Mild (1-3) Last Admin: 01/15/19 03:53 Dose: 650 mg Acetaminophen/Codeine Phosphate (Tylenol/Codeine 300 Mg/30 Mg) 1 ea PO Q12 PRN PRN Reason: Pain, moderate (4-7) Last Admin: 01/14/19 17:38 Dose: 1 ea Al Hydrox/Mg Hydrox/Simethicone (Maalox 30 Ml) 30 ml PO Q6H PRN PRN Reason: Indigestion / Heartburn Last Admin: 01/14/19 12:40 Dose: 30 ml Alprazolam (Xanax) 0.5 mg PO Q8H PRN PRN Reason: Anxiety Last Admin: 01/14/19 21:53 Dose: 0.5 mg Calcium Carbonate (Oscal) 500 mg PO DAILY [facility] Last Admin: 01/14/19 14:18 Dose: 500 mg Dextrose (Dextrose 50% Inj) 0 ml IV STAT PRN; Protocol PRN Reason: Hypoglycemia Protocol Dextrose (Glutose 15) 0 gm PO ONCE PRN; Protocol PRN Reason: Hypoglycemia Protocol Digoxin (Digoxin) 0.125 mg PO DAILY@1800 [facility] Last Admin: 01/14/19 17:33 Dose: 0.125 mg Duloxetine HCl (Cymbalta) 90 mg PO DAILY [facility] Last Admin: 01/14/19 14:18 Dose: 90 mg Fluticasone/Vilanterol (Breo Ellipta 200-25 Mcg Inh) 1 puff INH RQD [facility] Last Admin: 01/14/19 07:45 Dose: 1 puff Folic Acid (Folic Acid) 1 mg PO DAILY [facility] Last Admin: 01/14/19 14:19 Dose: 1 mg Glucagon (Glucagen Diagnostic Kit) 0 mg IM STAT PRN; Protocol PRN Reason: Hypoglycemia Protocol Heparin Sodium (Porcine) (Heparin) 5,000 units SC Q8 [facility] Last Admin: 01/14/19 06:08 Dose: 5,000 units Hydroxychloroquine Sulfate (Plaquenil) 200 mg PO BID TC; Protocol Last Admin: 01/14/19 17:38 Dose: 200 mg Piperacillin Sod/Tazobactam (Sod 3.375 gm/ Sodium Chloride) 100 mls @ 200 mls/hr IVPB Q6H TC; Protocol Last Admin: 01/15/19 03:59 Dose: 200 mls/hr Vancomycin HCl 1,000 mg/ (Sodium Chloride) 250 mls @ 166.6 mls/hr IVPB Q12H [facility]; Protocol Last Admin: 01/15/19 00:37 Dose: 166.6 mls/hr Dextrose (Dextrose 5% In Water 1000 Ml) 1,000 mls @ 0 mls/hr IV .Q0M PRN; Prot ocol PRN Reason: Hypoglycemia Protocol Insulin Human Isoph/Insulin Regular (Novolin 70/30 (70/30 Units/Ml) 10 Ml) 10 units SC ACB [facility] Last Admin: 01/14/19 08:34 Dose: Not Given Insulin Human Isoph/Insulin Regular (Novolin 70/30 (70/30 Units/Ml) 10 Ml) 3 units SC ACD [facility] Last Admin: 01/14/19 16:04 Dose: 3 unit Insulin Human Regular (Novolin R) 0 unit SC ACHS [facility]; Protocol Last Admin: 01/14/19 21:08 Dose: Not Given Lactobacillus Acidophilus (Lactobacillus) 1 cap PO BID [facility] Last Admin: 01/14/19 18:23 Dose: 1 cap Methotrexate (Methotrexate) 15 mg PO QWK [facility] Last Admin: 01/14/19 14:17 Dose: 15 mg Oseltamivir Phosphate (Tamiflu Cap) 75 mg PO BID [facility]; Protocol Stop: 01/15/19 18:00 Last Admin: 01/14/19 17:33 Dose: 75 mg Pantoprazole Sodium (Protonix Ec Tab) 40 mg PO DAILY [facility] Last Admin: 01/14/19 14:17 Dose: 40 mg Prednisone (Prednisone Tab) 40 mg PO ONCE ONE Stop: 01/15/19 11:01 Prednisone (Prednisone Tab) 30 mg PO ONCE ONE Stop: 01/16/19 11:01 Prednisone (Prednisone Tab) 20 mg PO ONCE ONE Stop: 01/17/19 11:01 Prednisone (Prednisone Tab) 10 mg PO ONCE ONE Stop: 01/18/19 11:01 Rosuvastatin Calcium (Crestor) 10 mg PO HS TC Last Admin: 01/14/19 21:53 Dose: 10 mg Trazodone HCl (Desyrel) 100 mg PO HS TC Last Admin: 01/14/19 21:53 Dose: 100 mg - Labs Labs: 01/14/19 08:05 01/14/19 08:05 PT 13.5 SECONDS (9.7-12.2) H 01/10/19 06:18 INR 1.2 01/10/19 06:18 APTT 34 SECONDS (21-34) 01/10/19 06:18 - Constitutional Appears: Non-toxic, No Acute Distress - Respiratory Exam Respiratory Exam: Clear to Ausculation Bilateral, NORMAL BREATHING PATTERN - Cardiovascular Exam Cardiovascular Exam: REGULAR RHYTHM, +S1, +S2 Additional comments: site of prior portacath CDI with dressing in place - GI/Abdominal Exam GI & Abdominal Exam: Soft. absent: Distended, Firm, Guarding, Rigid, Tenderness, Rebound Assessment and Plan - Assessment and Plan (Free Text) Assessment: 58F s/p portacath removal for positive blood cultures POD#1 Plan: - Currently has a line in place - Will follow for need for possible definitive line as needed Further recs discuss with Dr. Liang Giang, PGY3
[2019-01-15] MEDS: Fluticasone-Vilanterol 200/25mcg Diskus INH SCH (07:53)
[2019-01-15 08:27] LABS: BASO % 0.2 % (0.0-2.0); EOS # 0.4 K/uL (0.0-0.7); EOS % 1.7 % (0.0-4.0); HEMOGLOBIN 12.3 g/dL (11.0-16.0); LYMPH # 1.7 K/uL (1.0-4.3); MEAN CELL VOLUME 82.7 fL (81.0-99.0); MEAN CORPUSCULAR HEMOGLOBIN 25.7 pg (27.0-31.0); MEAN CORPUSCULAR HGB CONC 31.1 g/dL (33.0-37.0); MEAN PLATELET VOLUME 8.2 fL (7.2-11.7); MONO # 0.7 K/uL (0.0-0.8); MONO % 3.3 % (0.0-10.0); NEUT % 86.8 % (50.0-75.0); NRBC % 0.1 % (0.0-2.0); PLATELET COUNT 282 K/uL (130-400); RBC 4.77 Mil/uL (3.80-5.20); RED CELL DISTRIBUTION WIDTH 17.4 % (11.5-14.5); WHITE BLOOD COUNT 20.8 K/uL (4.8-10.8)
[2019-01-15] MEDS: (Novolin R) Insulin Human Regular 100 units/ml vial SC SCH ×4 (08:30→23:08)
[2019-01-15] MEDS: (Novolin 70/30) NPH/Regular 70/30 Units/ml 10 ml vial SC SCH ×2 (08:30→17:30)
[2019-01-15 08:33] LABS: INR 1.1; PROTHROMBIN TIME 12.4 SECONDS (9.7-12.2)
[2019-01-15 08:43] LABS: ALB/GLOB RATIO 1.1 (1.0-2.1); ALBUMIN 3.5 g/dL (3.5-5.0); ALT/SGPT 35 U/L (9-52); AST/SGOT 35 U/L (14-36); BLOOD UREA NITROGEN 20 mg/dL (7-17); CALCIUM 8.4 mg/dl (8.6-10.4); GFR NON-AFRICAN AMERICAN > 60
[2019-01-15 09:03] LABS: BANDS 6 % (0-2); EOSINOPHIL 1 % (0-4); LYMPHOCYTE 10 % (20-40); MONOCYTE 2 % (0-10); NEUTROPHIL 81 % (50-75); PLATELET ESTIMATE NORMAL (NORMAL); TOTAL CELLS COUNTED 100
[2019-01-15] MEDS: Lactobacillus Acidophilus 500 MU Cap PO SCH ×2 (09:53→17:54)
[2019-01-15] MEDS: Pantoprazole 40 mg EC Tab PO SCH (09:54)
--- NOTE | 2019-01-15 12:54 | CARD ---
APPROVED REPORT Date of service: 01/14/2019 EKG Measurement Heart [id number] <Conclusion> Sinus rhythm with occasional premature ventricular complexes Otherwise normal ECG
--- NOTE | 2019-01-15 15:09 | CP.PCM.PN ---
Subjective - Date & Time of Evaluation Date of Evaluation: 01/15/19 Time of Evaluation: 15:08 - Subjective Subjective: HOSPITALIST SERVICE Pt s/e at bedside, she complains of generalized body aches, she reports neck pain today attributed to poor sleep. Pt denies cp sob fc nv Objective - Vital Signs/Intake and Output Vital Signs (last 24 hours): Temp Pulse Resp BP Pulse Ox 100.8 F H 94 H 20 147/76 95 01/15/19 09:10 01/15/19 08:13 01/15/19 08:13 01/15/19 08:13 01/15/19 08:13 - Medications Medications: Current Medications Acetaminophen (Tylenol 325mg Tab) 650 mg PO Q6 PRN PRN Reason: Pain, Mild (1-3) Last Admin: 01/15/19 09:10 Dose: 650 mg Acetaminophen/Codeine Phosphate (Tylenol/Codeine 300 Mg/30 Mg) 1 ea PO Q12 PRN PRN Reason: Pain, moderate (4-7) Last Admin: 01/14/19 17:38 Dose: 1 ea Al Hydrox/Mg Hydrox/Simethicone (Maalox 30 Ml) 30 ml PO Q6H PRN PRN Reason: Indigestion / Heartburn Last Admin: 01/14/19 12:40 Dose: 30 ml Alprazolam (Xanax) 0.5 mg PO Q8H PRN PRN Reason: Anxiety Last Admin: 01/14/19 21:53 Dose: 0.5 mg Calcium Carbonate (Oscal) 500 mg PO DAILY [facility] Last Admin: 01/15/19 10:01 Dose: 500 mg Dextrose (Dextrose 50% Inj) 0 ml IV STAT PRN; Protocol PRN Reason: Hypoglycemia Protocol Dextrose (Glutose 15) 0 gm PO ONCE PRN; Protocol PRN Reason: Hypoglycemia Protocol Digoxin (Digoxin) 0.125 mg PO DAILY@1800 [facility] Last Admin: 01/14/19 17:33 Dose: 0.125 mg Duloxetine HCl (Cymbalta) 90 mg PO DAILY [facility] Last Admin: 01/15/19 09:53 Dose: 90 mg Fluticasone/Vilanterol (Breo Ellipta 200-25 Mcg Inh) 1 puff INH RQD [facility] Last Admin: 01/15/19 07:53 Dose: 1 puff Folic Acid (Folic Acid) 1 mg PO DAILY [facility] Last Admin: 01/15/19 09:59 Dose: 1 mg Glucagon (Glucagen Diagnostic Kit) 0 mg IM STAT PRN; Protocol PRN Reason: Hypoglycemia Protocol Heparin Sodium (Porcine) (Heparin) 5,000 units SC Q8 TC Last Admin: 01/14/19 06:08 Dose: 5,000 units Hydroxychloroquine Sulfate (Plaquenil) 200 mg PO BID TC; Protocol Last Admin: 01/15/19 09:52 Dose: 200 mg Piperacillin Sod/Tazobactam (Sod 3.375 gm/ Sodium Chloride) 100 mls @ 200 mls/hr IVPB Q6H TC; Protocol Last Admin: 01/15/19 10:00 Dose: 200 mls/hr Vancomycin HCl 1,000 mg/ (Sodium Chloride) 250 mls @ 166.6 mls/hr IVPB Q12H TC; Protocol Last Admin: 01/15/19 00:37 Dose: 166.6 mls/hr Vancomycin HCl 1,000 mg/ (Sodium Chloride) 250 mls @ 166.6 mls/hr IVPB Q12H TC; Protocol Insulin Human Isoph/Insulin Regular (Novolin 70/30 (70/30 Units/Ml) 10 Ml) 10 units SC ACB [facility] Last Admin: 01/15/19 08:30 Dose: 10 units Insulin Human Isoph/Insulin Regular (Novolin 70/30 (70/30 Units/Ml) 10 Ml) 3 units SC ACD [facility] Last Admin: 01/14/19 16:04 Dose: 3 unit Insulin Human Regular (Novolin R) 0 unit SC ACHS [facility]; Protocol Last Admin: 01/15/19 12:01 Dose: 6 unit Lactobacillus Acidophilus (Lactobacillus) 1 cap PO BID [facility] Last Admin: 01/15/19 09:53 Dose: 1 cap Methotrexate (Methotrexate) 15 mg PO QWK [facility] Last Admin: 01/14/19 14:17 Dose: 15 mg Oseltamivir Phosphate (Tamiflu Cap) 75 mg PO BID [facility]; Protocol Stop: 01/15/19 18:00 Last Admin: 01/15/19 09:53 Dose: 75 mg Pantoprazole Sodium (Protonix Ec Tab) 40 mg PO DAILY [facility] Last Admin: 01/15/19 09:54 Dose: 40 mg Prednisone (Prednisone Tab) 30 mg PO ONCE ONE Stop: 03/12/19 11:01 Prednisone (Prednisone Tab) 20 mg PO ONCE ONE Stop: 01/17/19 11:01 Prednisone (Prednisone Tab) 10 mg PO ONCE ONE Stop: 01/18/19 11:01 Rosuvastatin Calcium (Crestor) 10 mg PO HS TC Last Admin: 01/14/19 21:53 Dose: 10 mg Trazodone HCl (Desyrel) 100 mg PO HS TC Last Admin: 01/14/19 21:53 Dose: 100 mg - Labs Labs: 01/15/19 08:18 01/15/19 08:18 PT 12.4 SECONDS (9.7-12.2) H 01/15/19 08:18 INR 1.1 01/15/19 08:18 APTT 28 SECONDS (21-34) 01/15/19 08:18 - Additional Findings Additional findings: General: AAOx3, NAD HEENT: NCA, EOMI, PERRLA, NO lymphadenopathy, NO pharyngeal erythema/exudate, NO thyromegaly, Nasal Turbinates are moist/nonerythematous/nonedematous, pain with neck ROM in flex ext sidebending Cardio: NS1 and NS2, NO M/R/G Resp: Diffuse scattered expiratory wheezing, However audible wheezing without stethescope not heard which has improved since admission. Patient is speaking in full sentences and shows NO signs of respiratory distress GI: BSx4, Soft, NT, Central Obesity, NO guarding/rebound tenderness Ext: Pulses are strong and equal, Capillary Refill is 2 seconds, NO edema noted Neuro: CN II through XII are grossly intact Assessment and Plan - Assessment and Plan (Free Text) Assessment: Leukocytosis Likely Secondary to Gram (+) Bacteremia WBCs 20 Vancomycin 1 gm IV Q12H (trough 16) Zosyn 3.375 gm IV Q6H Tamiflu 75 mg PO 2x/day with last dose on 01/15/18 at 6 PM Repeat Blood Culture 01/12/19: negative at 48 hours Patient had Left Chest George Cath removal 01/14/19 earlier than expected by Surgery Team: will need to have 24 to 48 hours free of port before insertion of new George Cath (patient has original in place due to difficult IV access in the past) ID Dr. Cuong [id number] at the time of Admission Status: Resolved Seen by Psychiatry Dr. Reyna Lim COPD/Asthma Excerbation Uses unspecified dosage of Symbicort at home Uses and has home Oxygen Follows with Dr. Choi as an outpatient Breo Ellipta 25/100 mcg 1 PO INH 1x/day Duoneb Q6H around the clock Solumedrol D/C on 01/13/19 as her SOB/Wheezing/Cough has improved and was back at base line Prednisone Taper 67-0-21-20-10 mg started on 01/14/19 and will end on 01/18/19 Patient uses BiPap at night but does not know home settings: she is currently on 08/11 at 40% at night and nursing order placed to make sure patient gets this Consult placed for Dr. Choi but he is away and Dr. Apple is covering Lupus Exacerbation Exacerbation of Lupus was certainly a possibility considering her presentation Her symptoms have essentially resolved Solumedrol has been discontinued 01/13/19 and Prednisone Taper 55-6-38-20-10 mg started on 01/14/19 and will end on 01/18/19 Hydroxycholorquin 200 mg PO 2x/day She has scheduled appointment with her [employer] Dr. Matos for 01/23/19 Hx RA Methotrexate 15 mg PO once a week She has scheduled appointment with her [employer] Dr. Matos for 01/23/19 Hx of CHF of unspecified type This is actually questionable as Echocardiogram 01/12/19 did NOT indicate Heart Failure However patient is on Digoxin 0.125 mg PO 1x/day She states that her outpatient Machine Steak T[employer]izer is Dr. Merrill whom she has not seen in over 1 1/2 years When questioned 01/13/19 who provides her with refills on her Digoxin if she has not been seeing Dr. Merrill regularly, she stated that her PMD Dr. Willis did Consult placed for Dr. Merrill 01/13/19 for clarification of this issue and for follow up as she has not been to his office for check up as she stated "I am lazy" Hx Hyperlipidemia Crestor 10 mg PO HS Hx Chronic Right LE DVT S/P IVC Filter Patient stated that she had an IVC Filter placed at this institution many 8-9 years ago and was on Coumadin for 1 year and then was taken off of it She states that she is currently not on any anticoagulation for this issue and that her PMD Dr. Willis is aware Hx Major Depression/Anxiety Cymbalta 90 mg PO 1x/day Xanax 0.5 mg PO Q8H PRN Anxiety Seen by Psychiatry Dr. Orellana this admission Hx DM 1 NO history of DM indicated on the last few H&Ps Patient revealed 01/13/19 that she had DM 1 after explaining to her that her Accuchecks were high (she is on steroids but too high for being on steroids) She stated today that she took Novolog (70/30) 10 units with breakfast and Novolog (70/30) 3 units with dinner and this has been started 01/13/19. Continue RISS ACHS and Hypoglycemic protocol HgBA1C 7.5 Hx Nicotine Addiction Continues to smoke 2 cigarettes per day despite her chronic medical conditions She is fully aware of the effects on her health She was counseled the first time that I saw her during this admission. Provide patient with information for [employer] Quitline [phone] information upon discharge for resources in her area for help Diarrhea Experienced 3 to 4 watery bowel movements a day after being given Kayexalate when K was elevated therefore C. diff toxin was ordered 01/13/19 C. diff toxin 01/13/19 is negative She had soft brown bowel movement 01/14/19 Prophylaxis Heparin 5,000 Units SC Q8H Lactobacillus 1 capsule PO 2x/day while on antibiotics and for 30 additional days after last dose of antibiotics Protonix 40 mg PO 1x/day while on the steroids and then the Protonix should be discontinued dispo: Pt improving SOB on pred taper, restarted her Tylenol 3
[2019-01-15] MEDS ORDERED: Acetaminophen-Codeine 300/30 mg Tab PO SCH (15:30)
[2019-01-15] MEDS: Digoxin 125 mcg (0.125 mg) Tab PO SCH (17:55)
--- NOTE | 2019-01-15 20:37 | CP.PCM.PN ---
Subjective - Date & Time of Evaluation Date of Evaluation: 01/15/19 Time of Evaluation: 14:00 - Subjective Subjective: dictated Objective - Vital Signs/Intake and Output Vital Signs (last 24 hours): Temp Pulse Resp BP Pulse Ox 99.4 F 89 20 147/82 95 01/15/19 16:00 01/15/19 16:00 01/15/19 16:00 01/15/19 16:00 01/15/19 16:38 Intake and Output: 01/15/19 01/16/19 18:59 06:59 Intake Total 500 Balance 500 - Medications Medications: Current Medications Acetaminophen (Tylenol 325mg Tab) 650 mg PO Q6 PRN PRN Reason: Pain, Mild (1-3) Last Admin: 01/15/19 09:10 Dose: 650 mg Acetaminophen/Codeine Phosphate (Tylenol/Codeine 300 Mg/30 Mg) 1 ea PO Q12 PRN PRN Reason: Pain, moderate (4-7) Last Admin: 01/14/19 17:38 Dose: 1 ea Acetaminophen/Codeine Phosphate (Tylenol/Codeine 300 Mg/30 Mg) [address] [facility] Al Hydrox/Mg Hydrox/Simethicone (Maalox 30 Ml) 30 ml PO Q6H PRN PRN Reason: Indigestion / Heartburn Last Admin: 01/14/19 12:40 Dose: 30 ml Alprazolam (Xanax) 0.5 mg PO Q8H PRN PRN Reason: Anxiety Last Admin: 01/14/19 21:53 Dose: 0.5 mg Calcium Carbonate (Oscal) [address] [facility] Last Admin: 01/15/19 10:01 Dose: 500 mg Dextrose (Dextrose 50% Inj) 0 ml IV STAT PRN; Protocol PRN Reason: Hypoglycemia Protocol Dextrose (Glutose 15) 0 gm PO ONCE PRN; Protocol PRN Reason: Hypoglycemia Protocol Digoxin (Digoxin) 0.125 mg PO DAILY@1800 [facility] Last Admin: 01/15/19 17:55 Dose: 0.125 mg Duloxetine HCl (Cymbalta) [address] [facility] Last Admin: 01/15/19 09:53 Dose: 90 mg Fluticasone/Vilanterol (Breo Ellipta 200-25 Mcg Inh) [address] [facility] Last Admin: 01/15/19 07:53 Dose: 1 puff Folic Acid (Folic Acid) [address] [facility] Last Admin: 01/15/19 09:59 Dose: 1 mg Glucagon (Glucagen Diagnostic Kit) 0 mg IM STAT PRN; Protocol PRN Reason: Hypoglycemia Protocol Heparin Sodium (Porcine) (Heparin) 5,000 units SC Q8 TC Last Admin: 01/14/19 06:08 Dose: 5,000 units Hydroxychloroquine Sulfate (Plaquenil) [address] [facility]; Protocol Last Admin: 01/15/19 09:52 Dose: 200 mg Piperacillin Sod/Tazobactam (Sod 3.375 gm/ Sodium Chloride) 100 mls @ 200 mls/hr IVPB Q6H TC; Protocol Last Admin: 01/15/19 17:00 Dose: 200 mls/hr Vancomycin HCl 1,000 mg/ (Sodium Chloride) 250 mls @ 166.6 mls/hr IVPB Q12H TC; Protocol Last Admin: 01/15/19 00:37 Dose: 166.6 mls/hr Vancomycin HCl 1,000 mg/ (Sodium Chloride) 250 mls @ 166.6 mls/hr IVPB Q12H TC; Protocol Last Admin: 01/15/19 13:00 Dose: 166.6 mls/hr Insulin Human Isoph/Insulin Regular (Novolin 70/30 (70/30 Units/Ml) 10 Ml) [address] [facility] Last Admin: 01/15/19 08:30 Dose: 10 units Insulin Human Isoph/Insulin Regular (Novolin 70/30 (70/30 Units/Ml) 10 Ml) [address] [facility] Last Admin: 01/15/19 17:30 Dose: 3 unit Insulin Human Regular (Novolin R) [address] [facility]; Protocol Last Admin: 01/15/19 17:52 Dose: 2 unit Lactobacillus Acidophilus (Lactobacillus) [address] [facility] Last Admin: 01/15/19 17:54 Dose: 1 cap Methotrexate (Methotrexate) [address] [facility] Last Admin: 01/14/19 14:17 Dose: 15 mg Pantoprazole Sodium (Protonix Ec Tab) [address] [facility] Last Admin: 01/15/19 09:54 Dose: 40 mg Prednisone (Prednisone Tab) 30 mg PO ONCE ONE Stop: 01/16/19 11:01 Prednisone (Prednisone Tab) 20 mg PO ONCE ONE Stop: 01/17/19 11:01 Prednisone (Prednisone Tab) 10 mg PO ONCE ONE Stop: 01/18/19 11:01 Rosuvastatin Calcium (Crestor) 10 mg PO HS TC Last Admin: 01/14/19 21:53 Dose: 10 mg Trazodone HCl (Desyrel) [address] [facility] Last Admin: 01/14/19 21:53 Dose: 100 mg - Labs Labs: 01/15/19 08:18 01/15/19 08:18 PT 12.4 SECONDS (9.7-12.2) H 01/15/19 08:18 INR 1.1 01/15/19 08:18 APTT 28 SECONDS (21-34) 01/15/19 08:18
--- NOTE | 2019-01-16 00:04 | CP.PCM.PN ---
Subjective - Date & Time of Evaluation Date of Evaluation: 01/15/19 Time of Evaluation: 12:05 - Subjective Subjective: Patient seen and evaluated No cardiac events noted Objective - Vital Signs/Intake and Output Vital Signs (last 24 hours): Temp Pulse Resp BP Pulse Ox 99.4 F 89 20 147/82 95 01/15/19 16:00 01/15/19 16:00 01/15/19 16:00 01/15/19 16:00 01/15/19 16:38 Intake and Output: 01/15/19 01/16/19 18:59 06:59 Intake Total 500 Balance 500 - Medications Medications: Current Medications Acetaminophen/Codeine Phosphate (Tylenol/Codeine Elixir) 5 ml PO Q6 PRN PRN Reason: Pain, moderate (4-7) Stop: 01/22/19 23:17 Al Hydrox/Mg Hydrox/Simethicone (Maalox 30 Ml) 30 ml PO Q6H PRN PRN Reason: Indigestion / Heartburn Last Admin: 01/14/19 12:40 Dose: 30 ml Alprazolam (Xanax) 0.5 mg PO Q8H PRN PRN Reason: Anxiety Last Admin: 01/15/19 21:49 Dose: 0.5 mg Calcium Carbonate (Oscal) 500 mg PO DAILY [facility] [place] Last Admin: 01/15/19 10:01 Dose: 500 mg Dextrose (Dextrose 50% Inj) 0 ml IV STAT PRN; Protocol PRN Reason: Hypoglycemia Protocol Dextrose (Glutose 15) 0 gm PO ONCE PRN; Protocol PRN Reason: Hypoglycemia Protocol Digoxin (Digoxin) 0.125 mg PO DAILY@1800 [facility] [place] Last Admin: 01/15/19 17:55 Dose: 0.125 mg Duloxetine HCl (Cymbalta) 90 mg PO DAILY [facility] [place] Last Admin: 01/15/19 09:53 Dose: 90 mg Fluticasone/Vilanterol (Breo Ellipta 200-25 Mcg Inh) 1 puff INH RQD [facility] [place] Last Admin: 01/15/19 07:53 Dose: 1 puff Folic Acid (Folic Acid) 1 mg PO DAILY [facility] [place] Last Admin: 01/15/19 09:59 Dose: 1 mg Glucagon (Glucagen Diagnostic Kit) 0 mg IM STAT PRN; Protocol PRN Reason: Hypoglycemia Protocol Heparin Sodium (Porcine) (Heparin) 5,000 units SC Q8 [facility] Last Admin: 01/14/19 06:08 Dose: 5,000 units Hydroxychloroquine Sulfate (Plaquenil) 200 mg PO BID TC; Protocol Last Admin: 01/15/19 19:00 Dose: 200 mg Piperacillin Sod/Tazobactam (Sod 3.375 gm/ Sodium Chloride) 100 mls @ 200 mls/hr IVPB Q6H TC; Protocol Last Admin: 01/15/19 21:31 Dose: 200 mls/hr Vancomycin HCl 1,000 mg/ (Sodium Chloride) 250 mls @ 166.6 mls/hr IVPB Q12H TC; Protocol Last Admin: 01/15/19 13:00 Dose: 166.6 mls/hr Insulin Human Isoph/Insulin Regular (Novolin 70/30 (70/30 Units/Ml) 10 Ml) 10 units SC ACB [facility] [place] Last Admin: 01/15/19 08:30 Dose: 10 units Insulin Human Isoph/Insulin Regular (Novolin 70/30 (70/30 Units/Ml) 10 Ml) 3 units SC ACD [facility] [place] Last Admin: 01/15/19 17:30 Dose: 3 unit Insulin Human Regular (Novolin R) 0 unit SC ACHS [facility] [place]; Protocol Last Admin: 01/15/19 23:08 Dose: 2 unit Lactobacillus Acidophilus (Lactobacillus) 1 cap PO BID [facility] [place] Last Admin: 01/15/19 17:54 Dose: 1 cap Methotrexate (Methotrexate) 15 mg PO QWK [facility] [place] Last Admin: 01/14/19 14:17 Dose: 15 mg Pantoprazole Sodium (Protonix Ec Tab) 40 mg PO DAILY [facility] [place] Last Admin: 01/15/19 09:54 Dose: 40 mg Prednisone (Prednisone Tab) 30 mg PO ONCE ONE Stop: 01/16/19 11:01 Prednisone (Prednisone Tab) 20 mg PO ONCE ONE Stop: 01/17/19 11:01 Prednisone (Prednisone Tab) 10 mg PO ONCE ONE Stop: 01/18/19 11:01 Rosuvastatin Calcium (Crestor) 10 mg PO HS [facility] [place] Last Admin: 01/15/19 21:50 Dose: 10 mg Trazodone HCl (Desyrel) 100 mg PO HS [facility] [place] Last Admin: 01/15/19 21:50 Dose: Not Given - Labs Labs: 01/15/19 08:18 01/15/19 08:18 PT 12.4 SECONDS (9.7-12.2) H 01/15/19 08:18 INR 1.1 01/15/19 08:18 APTT 28 SECONDS (21-34) 01/15/19 08:18
--- NOTE | 2019-01-16 01:06 | PN ---
DATE: 01/15/2019 SUBJECTIVE: The patient was less drowsy today. She says she was feeling better. She was waiting. She says tomorrow they are going to put a Port-A-Cath in, and she is not having any fevers. Her cough has improved, and clinically, she was not wheezing much and feeling better. OBJECTIVE: VITAL SIGNS: T-max is 99.4 today, actually earlier was 100.8. Pulse 89, blood pressure 147/82, respirations are 20. HEENT: Head is atraumatic and normocephalic. NECK: Supple. LUNGS: Clear. No crackles or rales heard. HEART: S1, S2 regular. ABDOMEN: Soft, nontender. No guarding, no rigidity present. EXTREMITIES: Have no edema but obesity. White count is 20.8 today, hemoglobin 12.3, hematocrit 39.7, platelet count is 282, neutrophils still remains 86.8; and her BUN is 20, creatinine 0.9. Sugars are 173, not bad. Micro jimenez blood cultures have been negative. They also did another blood culture today two sets were positive for Staph epidermidis which was nafcillin-sensitive, and I went to see on her medications if she is on any steroids as she does have lupus. She still has a high white count. She is on methotrexate, and she is on prednisone 20 mg and 30 mg. They are decreased, tapering it, so we will see if the white count comes down with that. I have left the Zosyn on since she was also having respiratory symptoms and nafcillin would have just covered coagulase-negative Staph. Plan is to continue with the same treatment at this time, and left the vancomycin on till we get the catheter in postop. When she leaves the hospital, we will discontinue vancomycin, but she will need at least 2 weeks of treatment from the last positive culture, and she may need to go to a rehab to get antibiotics via the Port-A-Cath. Maritza Spann MD
[2019-01-16] MEDS: Piperacillin/Tazobact 3.375 GM in Sodium Chloride 100 ML IVPB SCH ×4 (04:29→21:53)
--- NOTE | 2019-01-16 07:22 | CP.PCM.PN ---
<Carloz Troncoso - Last Filed: 01/16/19 17:26> Subjective - Date & Time of Evaluation Date of Evaluation: 01/16/19 Time of Evaluation: 07:22 - Subjective Subjective: HOSPITALIST SERVICE Pt seen and examined at bedside. Reports improved breathing, denies pain in wound site, denies cp sob fc nv. pt understands and agrees with plan Objective - Vital Signs/Intake and Output Vital Signs (last 24 hours): Temp Pulse Resp BP Pulse Ox 98.9 F 84 20 167/79 H 95 01/15/19 23:58 01/15/19 23:58 01/15/19 23:58 01/15/19 23:58 01/15/19 23:58 Intake and Output: 01/16/19 01/16/19 06:59 18:59 Intake Total 590 Balance 590 - Medications Medications: Current Medications Acetaminophen/Codeine Phosphate (Tylenol/Codeine Elixir) 5 ml PO Q6 PRN PRN Reason: Pain, moderate (4-7) Stop: 01/22/19 23:17 Al Hydrox/Mg Hydrox/Simethicone (Maalox 30 Ml) 30 ml PO Q6H PRN PRN Reason: Indigestion / Heartburn Last Admin: 01/14/19 12:40 Dose: 30 ml Alprazolam (Xanax) 0.5 mg PO Q8H PRN PRN Reason: Anxiety Last Admin: 01/15/19 21:49 Dose: 0.5 mg Calcium Carbonate (Oscal) 500 mg PO DAILY [facility] Last Admin: 01/15/19 10:01 Dose: 500 mg Dextrose (Dextrose 50% Inj) 0 ml IV STAT PRN; Protocol PRN Reason: Hypoglycemia Protocol Dextrose (Glutose 15) 0 gm PO ONCE PRN; Protocol PRN Reason: Hypoglycemia Protocol Digoxin (Digoxin) 0.125 mg PO DAILY@1800 [facility] Last Admin: 01/15/19 17:55 Dose: 0.125 mg Duloxetine HCl (Cymbalta) 90 mg PO DAILY [facility] Last Admin: 01/15/19 09:53 Dose: 90 mg Fluticasone/Vilanterol (Breo Ellipta 200-25 Mcg Inh) 1 puff INH RQD [facility] Last Admin: 01/15/19 07:53 Dose: 1 puff Folic Acid (Folic Acid) 1 mg PO DAILY [facility] Last Admin: 01/15/19 09:59 Dose: 1 mg Glucagon (Glucagen Diagnostic Kit) 0 mg IM STAT PRN; Protocol PRN Reason: Hypoglycemia Protocol Heparin Sodium (Porcine) (Heparin) 5,000 units SC Q8 [facility] Last Admin: 01/14/19 06:08 Dose: 5,000 units Hydroxychloroquine Sulfate (Plaquenil) 200 mg PO BID [facility]; Protocol Last Admin: 01/15/19 19:00 Dose: 200 mg Piperacillin Sod/Tazobactam (Sod 3.375 gm/ Sodium Chloride) 100 mls @ 200 mls/hr IVPB Q6H TC; Protocol Last Admin: 01/16/19 04:29 Dose: 200 mls/hr Vancomycin HCl 1,000 mg/ (Sodium Chloride) 250 mls @ 166.6 mls/hr IVPB Q12H [facility]; Protocol Last Admin: 01/16/19 00:21 Dose: 166.6 mls/hr Insulin Human Isoph/Insulin Regular (Novolin 70/30 (70/30 Units/Ml) 10 Ml) 10 units SC ACB [facility] Last Admin: 01/15/19 08:30 Dose: 10 units Insulin Human Isoph/Insulin Regular (Novolin 70/30 (70/30 Units/Ml) 10 Ml) 3 units SC ACD [facility] Last Admin: 01/15/19 17:30 Dose: 3 unit Insulin Human Regular (Novolin R) 0 unit SC ACHS [facility]; Protocol Last Admin: 01/15/19 23:08 Dose: 2 unit Lactobacillus Acidophilus (Lactobacillus) 1 cap PO BID [facility] Last Admin: 01/15/19 17:54 Dose: 1 cap Methotrexate (Methotrexate) 15 mg PO QWK [facility] Last Admin: 01/14/19 14:17 Dose: 15 mg Pantoprazole Sodium (Protonix Ec Tab) 40 mg PO DAILY [facility] Last Admin: 01/15/19 09:54 Dose: 40 mg Prednisone (Prednisone Tab) 30 mg PO ONCE ONE Stop: 01/16/19 11:01 Prednisone (Prednisone Tab) 20 mg PO ONCE ONE Stop: 01/17/19 11:01 Prednisone (Prednisone Tab) 10 mg PO ONCE ONE Stop: 01/18/19 11:01 Rosuvastatin Calcium (Crestor) 10 mg PO HS [facility] Last Admin: 01/15/19 21:50 Dose: 10 mg Trazodone HCl (Desyrel) 100 mg PO HS TC Last Admin: 01/15/19 21:50 Dose: Not Given - Labs Labs: 01/15/19 08:18 01/15/19 08:18 PT 12.4 SECONDS (9.7-12.2) H 01/15/19 08:18 INR 1.1 01/15/19 08:18 APTT 28 SECONDS (21-34) 01/15/19 08:18 - Additional Findings Additional findings: General: AAOx3, NAD HEENT: NCA, EOMI, PERRLA, NO lymphadenopathy, NO pharyngeal erythema/exudate, NO thyromegaly, Nasal Turbinates are moist/nonerythematous/nonedematous, pain with neck ROM in flex ext sidebending Cardio: NS1 and NS2, NO M/R/G Resp: Diffuse scattered expiratory wheezing, However audible wheezing without stethescope not heard which has improved since admission. Patient is speaking in full sentences and shows NO signs of respiratory distress GI: BSx4, Soft, NT, Central Obesity, NO guarding/rebound tenderness Ext: Pulses are strong and equal, Capillary Refill is 2 seconds, NO edema noted Neuro: CN II through XII are grossly intact Assessment and Plan - Assessment and Plan (Free Text) Assessment: Pt admitted for COPD exacerbation and coag neg staph bactermia Leukocytosis Likely Secondary to Gram (+) Bacteremia WBCs 20 Vancomycin 1 gm IV Q12H (trough 16) Zosyn 3.375 gm IV Q6H Tamiflu 75 mg PO 2x/day with last dose on 01/15/18 at 6 PM Repeat Blood Culture 01/12/19: negative at 48 hours Patient had Left Chest George Cath removal 01/14/19, likely will get replaced or as outpatient pending cultures ID Dr. Cuong BAZZI at the time of Admission Status: Resolved Seen by Psychiatry Dr. Orellana Hx COPD/Asthma Excerbation Uses unspecified dosage of Symbicort at home Uses and has home Oxygen Follows with Dr. Choi as an outpatient Breo Ellipta 25/100 mcg 1 PO INH 1x/day Duoneb Q6H around the clock Solumedrol D/C on 01/13/19 as her SOB/Wheezing/Cough has improved and was back at base line Prednisone Taper 64-4-99-20-10 mg started on 01/14/19 and will end on 01/18/19 Patient uses BiPap at night but does not know home settings: she is currently on 08/11 at 40% at night and nursing order placed to make sure patient gets this Consult placed for Dr. Choi but he is away and Dr. Apple is covering Lupus Exacerbation Exacerbation of Lupus was certainly a possibility considering her presentation Her symptoms have essentially resolved Solumedrol has been discontinued 01/13/19 and Prednisone Taper 52-9-01-20-10 mg started on 01/14/19 and will end on 01/18/19 Hydroxycholorquin 200 mg PO 2x/day She has scheduled appointment with her Supervisor [employer] Dr. Matos for 01/23/19 Hx RA Methotrexate 15 mg PO once a week She has scheduled appointment with her Supervisor [employer] Dr. Matos for 01/23/19 Hx of CHF of unspecified type This is actually questionable as Echocardiogram 01/12/19 did NOT indicate Heart Failure However patient is on Digoxin 0.125 mg PO 1x/day She states that her outpatient Alternative Education Teacher is Dr. Merrill whom she has not seen in over 1 1/2 years When questioned 01/13/19 who provides her with refills on her Digoxin if she has not been seeing Dr. Merrill regularly, she stated that her PMD Dr. Willis did Consult placed for Dr. Merrill 01/13/19 for clarification of this issue and for follow up as she has not been to his office for check up as she stated "I am lazy" Hx Hyperlipidemia Crestor 10 mg PO HS Hx Chronic Right LE DVT S/P IVC Filter Patient stated that she had an IVC Filter placed at this institution many 8-9 years ago and was on Coumadin for 1 year and then was taken off of it She states that she is currently not on any anticoagulation for this issue and that her PMD Dr. Willis is aware Hx Major Depression/Anxiety Cymbalta 90 mg PO 1x/day Xanax 0.5 mg PO Q8H PRN Anxiety Seen by Psychiatry Dr. Orellana this admission Hx DM 1 NO history of DM indicated on the last few H&Ps Patient revealed 01/13/19 that she had DM 1 after explaining to her that her Accuchecks were high (she is on steroids but too high for being on steroids) She stated today that she took Novolog (70/30) 10 units with breakfast and Novolog (70/30) 3 units with dinner and this has been started 01/13/19. Continue RISS ACHS and Hypoglycemic protocol HgBA1C 7.5 Hx Nicotine Addiction Continues to smoke 2 cigarettes per day despite her chronic medical conditions She is fully aware of the effects on her health She was counseled the first time that I saw her during this admission. Provide patient with information for [place] Quitline [phone] information upon discharge for resources in her area for help Diarrhea Experienced 3 to 4 watery bowel movements a day after being given Kayexalate when K was elevated therefore C. diff toxin was ordered 01/13/19 C. diff toxin 01/13/19 is negative She had soft brown bowel movement 01/14/19 Prophylaxis Heparin 5,000 Units SC Q8H Lactobacillus 1 capsule PO 2x/day while on antibiotics and for 30 additional days after last dose of antibiotics Protonix 40 mg PO 1x/day while on the steroids and then the Protonix should be discontinued dispo: Pt improving SOB on pred taper, restarted her Tylenol 3 <Tyrone Love - Last Filed: 01/16/19 18:02> Objective - Vital Signs/Intake and Output Vital Signs (last 24 hours): Temp Pulse Resp BP Pulse Ox 98.8 F 77 20 155/83 H 94 L 01/16/19 15:10 01/16/19 15:10 01/16/19 15:10 01/16/19 15:10 01/16/19 15:10 Intake and Output: 01/16/19 01/16/19 06:59 18:59 Intake Total 590 Balance 590 - Medications Medications: Current Medications Acetaminophen/Codeine Phosphate (Tylenol/Codeine Elixir) 5 ml PO Q6 PRN PRN Reason: Pain, moderate (4-7) Stop: 01/22/19 23:17 Last Admin: 01/16/19 16:44 Dose: 5 ml Al Hydrox/Mg Hydrox/Simethicone (Maalox 30 Ml) 30 ml PO Q6H PRN PRN Reason: Indigestion / Heartburn Last Admin: 01/14/19 12:40 Dose: 30 ml Alprazolam (Xanax) 0.5 mg PO Q8H PRN PRN Reason: Anxiety Last Admin: 01/16/19 10:10 Dose: 0.5 mg Calcium Carbonate (Oscal) 500 mg PO DAILY [facility] Last Admin: 01/16/19 10:11 Dose: 500 mg Dextrose (Dextrose 50% Inj) 0 ml IV STAT PRN; Protocol PRN Reason: Hypoglycemia Protocol Dextrose (Glutose 15) 0 gm PO ONCE PRN; Protocol PRN Reason: Hypoglycemia Protocol Digoxin (Digoxin) 0.125 mg PO DAILY@1800 [facility] Last Admin: 01/16/19 17:56 Dose: 0.125 mg Duloxetine HCl (Cymbalta) 90 mg PO DAILY [facility] Last Admin: 01/16/19 10:11 Dose: 90 mg Fluticasone/Vilanterol (Breo Ellipta 200-25 Mcg Inh) 1 puff INH RQD [facility] Last Admin: 01/16/19 07:45 Dose: 1 puff Folic Acid (Folic Acid) 1 mg PO DAILY [facility] Last Admin: 01/16/19 10:11 Dose: 1 mg Glucagon (Glucagen Diagnostic Kit) 0 mg IM STAT PRN; Protocol PRN Reason: Hypoglycemia Protocol Heparin Sodium (Porcine) (Heparin) 5,000 units SC Q8 [facility] Last Admin: 01/14/19 06:08 Dose: 5,000 units Hydroxychloroquine Sulfate (Plaquenil) 200 mg PO BID [facility]; Protocol Last Admin: 01/16/19 10:10 Dose: 200 mg Piperacillin Sod/Tazobactam (Sod 3.375 gm/ Sodium Chloride) 100 mls @ 200 mls/hr IVPB Q6H TC; Protocol Last Admin: 01/16/19 17:57 Dose: 200 mls/hr Vancomycin HCl 1,000 mg/ (Sodium Chloride) 250 mls @ 166.6 mls/hr IVPB Q12H [facility]; Protocol Last Admin: 01/16/19 13:20 Dose: 166.6 mls/hr Insulin Human Isoph/Insulin Regular (Novolin 70/30 (70/30 Units/Ml) 10 Ml) 10 units SC ACB [facility] Last Admin: 01/16/19 08:26 Dose: 10 units Insulin Human Isoph/Insulin Regular (Novolin 70/30 (70/30 Units/Ml) 10 Ml) 3 units SC ACD [facility] Last Admin: 01/16/19 17:56 Dose: 3 unit Insulin Human Regular (Novolin R) 0 unit SC ACHS [facility]; Protocol Last Admin: 01/16/19 17:57 Dose: 1 unit Lactobacillus Acidophilus (Lactobacillus) 1 cap PO BID [facility] Last Admin: 01/16/19 17:56 Dose: 1 cap Methotrexate (Methotrexate) 15 mg PO QWK [facility] Last Admin: 01/14/19 14:17 Dose: 15 mg Pantoprazole Sodium (Protonix Ec Tab) 40 mg PO DAILY [facility] Last Admin: 01/16/19 10:11 Dose: 40 mg Prednisone (Prednisone Tab) 20 mg PO ONCE ONE Stop: 01/17/19 11:01 Prednisone (Prednisone Tab) 10 mg PO ONCE ONE Stop: 01/18/19 11:01 Rosuvastatin Calcium (Crestor) 10 mg PO HS [facility] Last Admin: 01/15/19 21:50 Dose: 10 mg Trazodone HCl (Desyrel) 100 mg PO HS [facility] Last Admin: 01/15/19 21:50 Dose: Not Given - Labs Labs: 01/16/19 07:58 01/16/19 07:58 PT 12.4 SECONDS (9.7-12.2) H 01/15/19 08:18 INR 1.1 01/15/19 08:18 APTT 28 SECONDS (21-34) 01/15/19 08:18 Attending/Attestation - Attestation I have personally seen and examined this patient.: Yes I have fully participated in the care of the patient.: Yes I have reviewed all pertinent clinical information, including history, physical exam and plan: Yes
[2019-01-16] MEDS: Fluticasone-Vilanterol 200/25mcg Diskus INH SCH (07:45)
[2019-01-16 08:08] LABS: BASO % 0.2 % (0.0-2.0); EOS # 0.3 K/uL (0.0-0.7); EOS % 1.8 % (0.0-4.0); HEMOGLOBIN 11.9 g/dL (11.0-16.0); LYMPH # 1.7 K/uL (1.0-4.3); LYMPH % 10.5 % (20.0-40.0); MEAN CELL VOLUME 82.2 fL (81.0-99.0); MEAN CORPUSCULAR HEMOGLOBIN 25.9 pg (27.0-31.0); MEAN CORPUSCULAR HGB CONC 31.5 g/dL (33.0-37.0); MEAN PLATELET VOLUME 8.2 fL (7.2-11.7); MONO # 0.7 K/uL (0.0-0.8); MONO % 4.3 % (0.0-10.0); NEUT # 13.3 K/uL (1.8-7.0); NEUT % 83.2 % (50.0-75.0); NRBC % 0.1 % (0.0-2.0); RBC 4.61 Mil/uL (3.80-5.20); RED CELL DISTRIBUTION WIDTH 16.9 % (11.5-14.5)
[2019-01-16] MEDS: (Novolin 70/30) NPH/Regular 70/30 Units/ml 10 ml vial SC SCH ×2 (08:26→17:56)
[2019-01-16] MEDS: (Novolin R) Insulin Human Regular 100 units/ml vial SC SCH ×4 (08:26→21:53)
[2019-01-16 08:31] LABS: ALBUMIN 3.6 g/dL (3.5-5.0); ALT/SGPT 42 U/L (9-52); AST/SGOT 43 U/L (14-36); BLOOD UREA NITROGEN 15 mg/dL (7-17); CALCIUM 8.5 mg/dl (8.6-10.4); GFR NON-AFRICAN AMERICAN > 60
[2019-01-16] MEDS: Acetaminophen/Codeine elixir 120-12mg/5ml PO PRN ×2 (10:10→16:44)
[2019-01-16] MEDS: Lactobacillus Acidophilus 500 MU Cap PO SCH ×2 (10:11→17:56)
[2019-01-16] MEDS: Pantoprazole 40 mg EC Tab PO SCH (10:11)
--- NOTE | 2019-01-16 14:15 | PCM.PYCHPN ---
Psychiatric Progress Note - Psychiatric Progress Note Patient seen today, length of contact: 16 min Patient Chief Complaint: "Much better" Problems Identified/Issues Discussed: The pt is seen, chart reviewed, case discussed with staff. Support and psychoeducation given, No SEs from medications, risks discussed. After care discussed She is not suicidal or has any risks at this point Cleared for d/c Resident is made aware about some misinformation - she thinks she is staying longer Medication Change: No Medical Record Reviewed: Yes Mental Status Examination - Cognitive Function Orientation: Person, Place, Situation, Time Memory: Intact Attention: WNL Concentration: WNL Association: WNL Fund of Knowledge: WNL - Mood Mood: Depressed (less), Anxious - Affect Affect: Constricted - Speech Speech: Appropriate - Formal Thought Process Formal Thought Process: No Impairment - Suicidal Ideation Suicidal Ideation: No - Homicidal Ideation Homicidal Ideation: No Goal/Treatment Plan - Goal/Treatment Plan Need for Continued Stay: Other (medical) Progress Toward Problem(s) and Goals/Treatment Plan: Cymbalta for anxiety, depression, and pain Trazodone for sleep Refer to [facility] for outpatient psych Support and psychoed
[2019-01-16 17:56] VITALS: RESP 20
[2019-01-16] MEDS: Digoxin 125 mcg (0.125 mg) Tab PO SCH (17:56)
--- NOTE | 2019-01-16 22:15 | CP.PCM.PN ---
Subjective - Date & Time of Evaluation Date of Evaluation: 01/16/19 Time of Evaluation: 16:00 - Subjective Subjective: dictated Objective - Vital Signs/Intake and Output Vital Signs (last 24 hours): Temp Pulse Resp BP Pulse Ox 98.8 F 77 20 155/83 H 94 L 01/16/19 15:10 01/16/19 15:10 01/16/19 15:10 01/16/19 15:10 01/16/19 15:10 - Medications Medications: Current Medications Acetaminophen/Codeine Phosphate (Tylenol/Codeine Elixir) 5 ml PO Q6 PRN PRN Reason: Pain, moderate (4-7) Stop: 01/22/19 23:17 Last Admin: 01/16/19 16:44 Dose: 5 ml Al Hydrox/Mg Hydrox/Simethicone (Maalox 30 Ml) 30 ml PO Q6H PRN PRN Reason: Indigestion / Heartburn Last Admin: 01/14/19 12:40 Dose: 30 ml Alprazolam (Xanax) 0.5 mg PO Q8H PRN PRN Reason: Anxiety Last Admin: 01/16/19 19:42 Dose: 0.5 mg Calcium Carbonate (Oscal) 500 mg PO DAILY [facility] Last Admin: 01/16/19 10:11 Dose: 500 mg Dextrose (Dextrose 50% Inj) 0 ml IV STAT PRN; Protocol PRN Reason: Hypoglycemia Protocol Dextrose (Glutose 15) 0 gm PO ONCE PRN; Protocol PRN Reason: Hypoglycemia Protocol Digoxin (Digoxin) 0.125 mg PO DAILY@1800 [facility] Last Admin: 01/16/19 17:56 Dose: 0.125 mg Duloxetine HCl (Cymbalta) 90 mg PO DAILY [facility] Last Admin: 01/16/19 10:11 Dose: 90 mg Fluticasone/Vilanterol (Breo Ellipta 200-25 Mcg Inh) 1 puff INH RQD [facility] Last Admin: 01/16/19 07:45 Dose: 1 puff Folic Acid (Folic Acid) 1 mg PO DAILY [facility] Last Admin: 01/16/19 10:11 Dose: 1 mg Glucagon (Glucagen Diagnostic Kit) 0 mg IM STAT PRN; Protocol PRN Reason: Hypoglycemia Protocol Heparin Sodium (Porcine) (Heparin) 5,000 units SC Q8 [facility] Last Admin: 01/14/19 06:08 Dose: 5,000 units Hydroxychloroquine Sulfate (Plaquenil) 200 mg PO BID TC; Protocol Last Admin: 01/16/19 19:43 Dose: 200 mg Piperacillin Sod/Tazobactam (Sod 3.375 gm/ Sodium Chloride) 100 mls @ 200 mls/h r IVPB Q6H TC; Protocol Last Admin: 01/16/19 21:53 Dose: 200 mls/hr Vancomycin HCl 1,000 mg/ (Sodium Chloride) 250 mls @ 166.6 mls/hr IVPB Q12H TC; Protocol Last Admin: 01/16/19 13:20 Dose: 166.6 mls/hr Insulin Human Isoph/Insulin Regular (Novolin 70/30 (70/30 Units/Ml) 10 Ml) 10 units SC ACB TC Last Admin: 01/16/19 08:26 Dose: 10 units Insulin Human Isoph/Insulin Regular (Novolin 70/30 (70/30 Units/Ml) 10 Ml) 3 units SC ACD [facility] Last Admin: 01/16/19 17:56 Dose: 3 unit Insulin Human Regular (Novolin R) 0 unit SC ACHS TC; Protocol Last Admin: 01/16/19 21:53 Dose: Not Given Lactobacillus Acidophilus (Lactobacillus) 1 cap PO BID TC Last Admin: 01/16/19 17:56 Dose: 1 cap Methotrexate (Methotrexate) 15 mg PO QWK TC Last Admin: 01/14/19 14:17 Dose: 15 mg Pantoprazole Sodium (Protonix Ec Tab) 40 mg PO DAILY [facility] Last Admin: 01/16/19 10:11 Dose: 40 mg Prednisone (Prednisone Tab) 20 mg PO ONCE ONE Stop: 01/17/19 11:01 Prednisone (Prednisone Tab) 10 mg PO ONCE ONE Stop: 01/18/19 11:01 Rosuvastatin Calcium (Crestor) 10 mg PO HS [facility] Last Admin: 01/16/19 21:52 Dose: 10 mg Trazodone HCl (Desyrel) 100 mg PO HS [facility] Last Admin: 01/16/19 21:52 Dose: 100 mg - Labs Labs: 01/16/19 07:58 01/16/19 07:58 PT 12.4 SECONDS (9.7-12.2) H 01/15/19 08:18 INR 1.1 01/15/19 08:18 APTT 28 SECONDS (21-34) 01/15/19 08:18
--- NOTE | 2019-01-17 00:08 | CP.PCM.PN ---
Subjective - Date & Time of Evaluation Date of Evaluation: 01/16/19 Time of Evaluation: 16:45 - Subjective Subjective: Patient seen and evaluated Denies chest pain and dyspnea Objective - Vital Signs/Intake and Output Vital Signs (last 24 hours): Temp Pulse Resp BP Pulse Ox 98.8 F 77 20 155/83 H 94 L 01/16/19 15:10 01/16/19 15:10 01/16/19 15:10 01/16/19 15:10 01/16/19 15:10 - Medications Medications: Current Medications Acetaminophen/Codeine Phosphate (Tylenol/Codeine Elixir) 5 ml PO Q6 PRN PRN Reason: Pain, moderate (4-7) Stop: 01/22/19 23:17 Last Admin: 01/16/19 16:44 Dose: 5 ml Al Hydrox/Mg Hydrox/Simethicone (Maalox 30 Ml) 30 ml PO Q6H PRN PRN Reason: Indigestion / Heartburn Last Admin: 01/14/19 12:40 Dose: 30 ml Alprazolam (Xanax) 0.5 mg PO Q8H PRN PRN Reason: Anxiety Last Admin: 01/16/19 19:42 Dose: 0.5 mg Calcium Carbonate (Oscal) 500 mg PO DAILY [facility] Last Admin: 01/16/19 10:11 Dose: 500 mg Dextrose (Dextrose 50% Inj) 0 ml IV STAT PRN; Protocol PRN Reason: Hypoglycemia Protocol Dextrose (Glutose 15) 0 gm PO ONCE PRN; Protocol PRN Reason: Hypoglycemia Protocol Digoxin (Digoxin) 0.125 mg PO DAILY@1800 [facility] Last Admin: 01/16/19 17:56 Dose: 0.125 mg Duloxetine HCl (Cymbalta) 90 mg PO DAILY [facility] Last Admin: 01/16/19 10:11 Dose: 90 mg Fluticasone/Vilanterol (Breo Ellipta 200-25 Mcg Inh) 1 puff INH RQD [facility] Last Admin: 01/16/19 07:45 Dose: 1 puff Folic Acid (Folic Acid) 1 mg PO DAILY [facility] Last Admin: 01/16/19 10:11 Dose: 1 mg Glucagon (Glucagen Diagnostic Kit) 0 mg IM STAT PRN; Protocol PRN Reason: Hypoglycemia Protocol Heparin Sodium (Porcine) (Heparin) 5,000 units SC Q8 [facility] Last Admin: 01/14/19 06:08 Dose: 5,000 units Hydroxychloroquine Sulfate (Plaquenil) 200 mg PO BID TC; Protocol Last Admin: 01/16/19 19:43 Dose: 200 mg Piperacillin Sod/Tazobactam (Sod 3.375 gm/ Sodium Chloride) 100 mls @ 200 mls/hr IVPB Q6H TC; Protocol Last Admin: 01/16/19 21:53 Dose: 200 mls/hr Vancomycin HCl 1,000 mg/ (Sodium Chloride) 250 mls @ 166.6 mls/hr IVPB Q12H TC; Protocol Last Admin: 01/16/19 23:58 Dose: 166.6 mls/hr Insulin Human Isoph/Insulin Regular (Novolin 70/30 (70/30 Units/Ml) 10 Ml) 10 units SC ACB TC Last Admin: 01/16/19 08:26 Dose: 10 units Insulin Human Isoph/Insulin Regular (Novolin 70/30 (70/30 Units/Ml) 10 Ml) 3 units SC ACD [facility] Last Admin: 01/16/19 17:56 Dose: 3 unit Insulin Human Regular (Novolin R) 0 unit SC ACHS TC; Protocol Last Admin: 01/16/19 21:53 Dose: Not Given Lactobacillus Acidophilus (Lactobacillus) 1 cap PO BID TC Last Admin: 01/16/19 17:56 Dose: 1 cap Methotrexate (Methotrexate) 15 mg PO QWK TC Last Admin: 01/14/19 14:17 Dose: 15 mg Pantoprazole Sodium (Protonix Ec Tab) 40 mg PO DAILY TC Last Admin: 01/16/19 10:11 Dose: 40 mg Prednisone (Prednisone Tab) 20 mg PO ONCE ONE Stop: 01/17/19 11:01 Prednisone (Prednisone Tab) 10 mg PO ONCE ONE Stop: 01/18/19 11:01 Rosuvastatin Calcium (Crestor) 10 mg PO HS TC Last Admin: 01/16/19 21:52 Dose: 10 mg Trazodone HCl (Desyrel) 100 mg PO HS TC Last Admin: 01/16/19 21:52 Dose: 100 mg - Labs Labs: 01/16/19 07:58 01/16/19 07:58 PT 12.4 SECONDS (9.7-12.2) H 01/15/19 08:18 INR 1.1 01/15/19 08:18 APTT 28 SECONDS (21-34) 01/15/19 08:18
--- NOTE | 2019-01-17 01:16 | PN ---
DATE: 01/16/2019 SUBJECTIVE: The patient is doing better, but she says she sweats a lot and she was almost wet with the clothing. she probably has hyperhidrosis. PHYSICAL EXAMINATION: VITALS: Stable. T-max 98.8, pulse 77, blood pressure 155/83, respirations are 20. GENERAL: She was not wheezing and not complaining of much cough. HEAD: Atraumatic. NECK: Supple. LUNGS: Clear. HEART: S1, S2 are regular. ABDOMEN: Soft, nontender. She is still waiting for a new Port-A-Cath, and she is being treated for Staphylococcus epidermidis bacteremia. EXTREMITIES: Have no edema. LABORATORY DATA: Noted. White count is 16 today, hemoglobin 11.9, hematocrit 37.9, platelet count is 257, neutrophils are 83.2, and her BUN is 15, creatinine 0.7. Her last cultures are negative. Urine culture is negative, and she had coagulase-negative staph in two sets, and she did have a Port-A-Cath which we discontinued. At this time, she is getting Zosyn because she did have acute exacerbation of COPD, and at that time, lung findings were there and Zosyn would have felt better than the nafcillin, so we will continue the same at this time also, and her last blood culture was on 01/09/2019, from 01/10/2019 until 14 days until 01/24/2019, I think she should get the antibiotics till 01/24/2019 to cover for this bacteremia, and we have already pulled out the Port-A-Cath, and I am going to see her echo report. Echo report was read by Dr. Barrientos, and no vegetation seen. So at this time, we will continue with the same treatment. It can be given here or if she goes to the . We will discuss the plan with the attending. Maritza Spann MD
[2019-01-17] MEDS: Piperacillin/Tazobact 3.375 GM in Sodium Chloride 100 ML IVPB SCH ×4 (03:43→21:25)
[2019-01-17 07:44] LABS: BASO # 0.1 K/uL (0.0-0.2); BASO % 0.4 % (0.0-2.0); EOS # 0.3 K/uL (0.0-0.7); EOS % 2.1 % (0.0-4.0); HEMOGLOBIN 11.7 g/dL (11.0-16.0); LYMPH # 2.3 K/uL (1.0-4.3); LYMPH % 14.9 % (20.0-40.0); MEAN CELL VOLUME 81.7 fL (81.0-99.0); MEAN CORPUSCULAR HGB CONC 31.8 g/dL (33.0-37.0); MEAN PLATELET VOLUME 8.4 fL (7.2-11.7); MONO # 0.8 K/uL (0.0-0.8); MONO % 5.1 % (0.0-10.0); NEUT # 11.8 K/uL (1.8-7.0); NEUT % 77.5 % (50.0-75.0); RBC 4.5 Mil/uL (3.80-5.20); RED CELL DISTRIBUTION WIDTH 16.8 % (11.5-14.5); WHITE BLOOD COUNT 15.2 K/uL (4.8-10.8)
[2019-01-17 07:53] LABS: ALB/GLOB RATIO 1.1 (1.0-2.1); ALBUMIN 3.6 g/dL (3.5-5.0); ALT/SGPT 35 U/L (9-52); AST/SGOT 30 U/L (14-36); BLOOD UREA NITROGEN 20 mg/dL (7-17); CALCIUM 8.7 mg/dl (8.6-10.4); GFR NON-AFRICAN AMERICAN > 60
[2019-01-17] MEDS: Fluticasone-Vilanterol 200/25mcg Diskus INH SCH (08:22)
[2019-01-17] MEDS: (Novolin R) Insulin Human Regular 100 units/ml vial SC SCH ×4 (08:30→21:02)
[2019-01-17] MEDS: (Novolin 70/30) NPH/Regular 70/30 Units/ml 10 ml vial SC SCH ×2 (08:35→18:14)
[2019-01-17] MEDS: Lactobacillus Acidophilus 500 MU Cap PO SCH ×2 (10:07→18:12)
[2019-01-17] MEDS: Pantoprazole 40 mg EC Tab PO SCH (10:07)
--- NOTE | 2019-01-17 10:28 | CP.PCM.PN ---
<Carloz Troncoso - Last Filed: 01/17/19 10:28> Subjective - Date & Time of Evaluation Date of Evaluation: 01/17/19 Time of Evaluation: 10:26 - Subjective Subjective: HOSPITALIST SERVICE Pt s/e at bedside, denies chest pain sob fc nv. Feels much improved from previous state, understands and agrees with plan for PICC line and antibiotics until 01/24 at rehab. 12 point ROS reviewed and otherwise negative. Objective - Vital Signs/Intake and Output Vital Signs (last 24 hours): Temp Pulse Resp BP Pulse Ox 98.2 F 76 20 159/89 H 95 01/17/19 08:00 01/17/19 08:00 01/17/19 08:00 01/17/19 08:00 01/17/19 08:00 - Medications Medications: Current Medications Acetaminophen/Codeine Phosphate (Tylenol/Codeine Elixir) 5 ml PO Q6 PRN PRN Reason: Pain, moderate (4-7) Stop: 01/22/19 23:17 Last Admin: 01/16/19 16:44 Dose: 5 ml Al Hydrox/Mg Hydrox/Simethicone (Maalox 30 Ml) 30 ml PO Q6H PRN PRN Reason: Indigestion / Heartburn Last Admin: 01/14/19 12:40 Dose: 30 ml Alprazolam (Xanax) 0.5 mg PO Q8H PRN PRN Reason: Anxiety Last Admin: 01/17/19 10:16 Dose: 0.5 mg Calcium Carbonate (Oscal) 500 mg PO DAILY [facility] Last Admin: 01/17/19 10:06 Dose: 500 mg Dextrose (Dextrose 50% Inj) 0 ml IV STAT PRN; Protocol PRN Reason: Hypoglycemia Protocol Dextrose (Glutose 15) 0 gm PO ONCE PRN; Protocol PRN Reason: Hypoglycemia Protocol Digoxin (Digoxin) 0.125 mg PO DAILY@1800 [facility] Last Admin: 01/16/19 17:56 Dose: 0.125 mg Duloxetine HCl (Cymbalta) 90 mg PO DAILY [facility] Last Admin: 01/17/19 10:07 Dose: 90 mg Fluticasone/Vilanterol (Breo Ellipta 200-25 Mcg Inh) 1 puff INH RQD [facility] Last Admin: 01/17/19 08:22 Dose: 1 puff Folic Acid (Folic Acid) 1 mg PO DAILY [facility] Last Admin: 01/17/19 10:07 Dose: 1 mg Glucagon (Glucagen Diagnostic Kit) 0 mg IM STAT PRN; Protocol PRN Reason: Hypoglycemia Protocol Heparin Sodium (Porcine) (Heparin) 5,000 units SC Q8 [facility] Last Admin: 01/14/19 06:08 Dose: 5,000 units Hydroxychloroquine Sulfate (Plaquenil) 200 mg PO BID TC; Protocol Last Admin: 01/17/19 10:07 Dose: 200 mg Piperacillin Sod/Tazobactam (Sod 3.375 gm/ Sodium Chloride) 100 mls @ 200 mls/hr IVPB Q6H TC; Protocol Last Admin: 01/17/19 10:06 Dose: 200 mls/hr Vancomycin HCl 1,000 mg/ (Sodium Chloride) 250 mls @ 166.6 mls/hr IVPB Q12H TC; Protocol Last Admin: 01/16/19 23:58 Dose: 166.6 mls/hr Insulin Human Isoph/Insulin Regular (Novolin 70/30 (70/30 Units/Ml) 10 Ml) 10 units SC ACB [facility] Last Admin: 01/17/19 08:35 Dose: 10 units Insulin Human Isoph/Insulin Regular (Novolin 70/30 (70/30 Units/Ml) 10 Ml) 3 units SC ACD [facility] Last Admin: 01/16/19 17:56 Dose: 3 unit Insulin Human Regular (Novolin R) 0 unit SC ACHS [facility]; Protocol Last Admin: 01/17/19 08:30 Dose: Not Given Lactobacillus Acidophilus (Lactobacillus) 1 cap PO BID [facility] Last Admin: 01/17/19 10:07 Dose: 1 cap Methotrexate (Methotrexate) 15 mg PO QWK [facility] Last Admin: 01/14/19 14:17 Dose: 15 mg Pantoprazole Sodium (Protonix Ec Tab) 40 mg PO DAILY [facility] Last Admin: 01/17/19 10:07 Dose: 40 mg Prednisone (Prednisone Tab) 20 mg PO ONCE ONE Stop: 01/17/19 11:01 Prednisone (Prednisone Tab) 10 mg PO ONCE ONE Stop: 01/18/19 11:01 Rosuvastatin Calcium (Crestor) 10 mg PO HS [facility] Last Admin: 01/16/19 21:52 Dose: 10 mg Trazodone HCl (Desyrel) 100 mg PO HS [facility] Last Admin: 01/16/19 21:52 Dose: 100 mg - Labs Labs: 01/17/19 07:22 01/17/19 07:22 PT 12.4 SECONDS (9.7-12.2) H 01/15/19 08:18 INR 1.1 01/15/19 08:18 APTT 28 SECONDS (21-34) 01/15/19 08:18 - Additional Findings Additional findings: General: AAOx3, NAD HEENT: NCA, EOMI, PERRLA, NO lymphadenopathy, NO pharyngeal erythema/exudate, NO thyromegaly, Nasal Turbinates are moist/nonerythematous/nonedematous, pain with neck ROM in flex ext sidebending Cardio: NS1 and NS2, NO M/R/G Resp: Diffuse scattered expiratory wheezing, However audible wheezing without stethescope not heard which has improved since admission. Patient is speaking in full sentences and shows NO signs of respiratory distress GI: BSx4, Soft, NT, Central Obesity, NO guarding/rebound tenderness Ext: Pulses are strong and equal, Capillary Refill is 2 seconds, NO edema noted Neuro: CN II through XII are grossly intact Assessment and Plan - Assessment and Plan (Free Text) Assessment: Pt admitted for COPD exacerbation and coag neg staph bactermia Leukocytosis Likely Secondary to Gram (+) Bacteremia WBCs downtrending Zosyn 3.375 gm IV Q6H until 12/27 Tamiflu 75 mg PO 2x/day with last dose on 01/15/18 at 6 PM Repeat Blood Culture 01/12/19: negative at 48 hours Patient had Left Chest George Cath removal 01/14/19, likely will get replaced or as outpatient pending cultures ID Dr. Spann: recommending PICC line access with Zosyn 3.375 g IV q6hrs until 12/27 to be completed at rehab SI at the time of Admission Status: Resolved Seen by Psychiatry Dr. Orellana: pt stable for d/c, recommending outpt follow up Hx COPD/Asthma Excerbation Uses unspecified dosage of Symbicort at home Uses and has home Oxygen Follows with Dr. Choi as an outpatient Breo Ellipta 25/100 mcg 1 PO INH 1x/day Duoneb Q6H around the clock Solumedrol D/C on 01/13/19 as her SOB/Wheezing/Cough has improved and was back at base line Prednisone Taper 67-4-44-20-10 mg started on 01/14/19 and will end on 01/18/19 Patient uses BiPap at night but does not know home settings: she is currently on 08/11 at 40% at night and nursing order placed to make sure patient gets this Consult placed for Dr. Choi but he is away and Dr. Apple is covering Lupus Exacerbation Exacerbation of Lupus was certainly a possibility considering her presentation Her symptoms have essentially resolved Solumedrol has been discontinued 01/13/19 and Prednisone Taper 66-2-88-20-10 mg started on 01/14/19 and will end on 01/18/19 Hydroxycholorquin 200 mg PO 2x/day She has scheduled appointment with her [employer] Dr. Matos for 01/23/19 Hx RA Methotrexate 15 mg PO once a week She has scheduled appointment with her [employer] Dr. Matos for 01/23/19 Hx of CHF of unspecified type This is actually questionable as Echocardiogram 01/12/19 did NOT indicate Heart Failure However patient is on Digoxin 0.125 mg PO 1x/day She states that her outpatient Senior [employer]ant [employer]pa is Dr. Merrill whom she has not seen in over 1 1/2 years When questioned 01/13/19 who provides her with refills on her Digoxin if she has not been seeing Dr. Merrill regularly, she stated that her PMD Dr. Willis did Consult placed for Dr. Merrill 01/13/19 for clarification of this issue and for follow up as she has not been to his office for check up as she stated "I am lazy" Hx Hyperlipidemia Crestor 10 mg PO HS Hx Chronic Right LE DVT S/P IVC Filter Patient stated that she had an IVC Filter placed at this institution many 8-9 years ago and was on Coumadin for 1 year and then was taken off of it She states that she is currently not on any anticoagulation for this issue and that her PMD Dr. Willis is aware Hx Major Depression/Anxiety Cymbalta 90 mg PO 1x/day Xanax 0.5 mg PO Q8H PRN Anxiety Seen by Psychiatry Dr. Orellana this admission Hx DM 1 NO history of DM indicated on the last few H&Ps Patient revealed 01/13/19 that she had DM 1 after explaining to her that her Accuchecks were high (she is on steroids but too high for being on steroids) She stated today that she took Novolog (70/30) 10 units with breakfast and Novolog (70/30) 3 units with dinner and this has been started 01/13/19. Continue RISS ACHS and Hypoglycemic protocol HgBA1C 7.5 Hx Nicotine Addiction Continues to smoke 2 cigarettes per day despite her chronic medical conditions She is fully aware of the effects on her health She was counseled the first time that I saw her during this admission. Provide patient with information for [place] Quit[place] [phone] information upon discharge for resources in her area for help Diarrhea Experienced 3 to 4 watery bowel movements a day after being given Kayexalate when K was elevated therefore C. diff toxin was ordered 01/13/19 C. diff toxin 01/13/19 is negative She had soft brown bowel movement 01/14/19 Prophylaxis Heparin 5,000 Units SC Q8H Lactobacillus 1 capsule PO 2x/day while on antibiotics and for 30 additional days after last dose of antibiotics Protonix 40 mg PO 1x/day while on the steroids and then the Protonix should be discontinued dispo: Pt to get PICC line access for Zosyn 3.375 g IV q6hrs until 12/27 to be completed at rehab, stable for discharge pending approval <Tyrone Love - Last Filed: 01/17/19 18:55> Objective - Vital Signs/Intake and Output Vital Signs (last 24 hours): Temp Pulse Resp BP Pulse Ox 98.3 F 89 20 157/84 H 96 01/17/19 15:00 01/17/19 15:00 01/17/19 15:00 01/17/19 15:00 01/17/19 15:00 - Medications Medications: Current Medications Acetaminophen/Codeine Phosphate (Tylenol/Codeine Elixir) 5 ml PO Q6 PRN PRN Reason: Pain, moderate (4-7) Stop: 01/22/19 23:17 Last Admin: 01/16/19 16:44 Dose: 5 ml Al Hydrox/Mg Hydrox/Simethicone (Maalox 30 Ml) 30 ml PO Q6H PRN PRN Reason: Indigestion / Heartburn Last Admin: 01/14/19 12:40 Dose: 30 ml Alprazolam (Xanax) 0.5 mg PO Q8H PRN PRN Reason: Anxiety Last Admin: 01/17/19 10:16 Dose: 0.5 mg Calcium Carbonate (Oscal) 500 mg PO DAILY [facility] Last Admin: 01/17/19 10:06 Dose: 500 mg Dextrose (Dextrose 50% Inj) 0 ml IV STAT PRN; Protocol PRN Reason: Hypoglycemia Protocol Dextrose (Glutose 15) 0 gm PO ONCE PRN; Protocol PRN Reason: Hypoglycemia Protocol Digoxin (Digoxin) 0.125 mg PO DAILY@1800 [facility] Last Admin: 01/17/19 18:12 Dose: 0.125 mg Duloxetine HCl (Cymbalta) 90 mg PO DAILY [facility] Last Admin: 01/17/19 10:07 Dose: 90 mg Fluticasone/Vilanterol (Breo Ellipta 200-25 Mcg Inh) 1 puff INH RQD [facility] Last Admin: 01/17/19 08:22 Dose: 1 puff Folic Acid (Folic Acid) 1 mg PO DAILY [facility] Last Admin: 01/17/19 10:07 Dose: 1 mg Glucagon (Glucagen Diagnostic Kit) 0 mg IM STAT PRN; Protocol PRN Reason: Hypoglycemia Protocol Heparin Sodium (Porcine) (Heparin) 5,000 units SC Q8 [facility] Last Admin: 01/14/19 06:08 Dose: 5,000 units Hydroxychloroquine Sulfate (Plaquenil) 200 mg PO BID [facility]; Protocol Last Admin: 01/17/19 18:12 Dose: 200 mg Piperacillin Sod/Tazobactam (Sod 3.375 gm/ Sodium Chloride) 100 mls @ 200 mls/hr IVPB Q6H [facility]; Protocol Last Admin: 01/17/19 18:14 Dose: 200 mls/hr Vancomycin HCl 1,000 mg/ (Sodium Chloride) 250 mls @ 166.6 mls/hr IVPB Q12H [facility]; Protocol Last Admin: 01/17/19 13:18 Dose: 166.6 mls/hr Insulin Human Isoph/Insulin Regular (Novolin 70/30 (70/30 Units/Ml) 10 Ml) 10 units SC ACB [facility] Last Admin: 01/17/19 08:35 Dose: 10 units Insulin Human Isoph/Insulin Regular (Novolin 70/30 (70/30 Units/Ml) 10 Ml) 3 units SC ACD [facility] Last Admin: 01/17/19 18:14 Dose: 3 unit Insulin Human Regular (Novolin R) 0 unit SC ACHS [facility]; Protocol Last Admin: 01/17/19 18:14 Dose: 8 unit Lactobacillus Acidophilus (Lactobacillus) 1 cap PO BID [facility] Last Admin: 01/17/19 18:12 Dose: 1 cap Methotrexate (Methotrexate) 15 mg PO QWK [facility] Last Admin: 01/14/19 14:17 Dose: 15 mg Pantoprazole Sodium (Protonix Ec Tab) 40 mg PO DAILY [facility] Last Admin: 01/17/19 10:07 Dose: 40 mg Prednisone (Prednisone Tab) 10 mg PO ONCE ONE Stop: 01/18/19 11:01 Rosuvastatin Calcium (Crestor) 10 mg PO HS [facility] Last Admin: 01/16/19 21:52 Dose: 10 mg Trazodone HCl (Desyrel) 100 mg PO HS [facility] Last Admin: 01/16/19 21:52 Dose: 100 mg - Labs Labs: 01/17/19 07:22 01/17/19 07:22 PT 12.4 SECONDS (9.7-12.2) H 01/15/19 08:18 INR 1.1 01/15/19 08:18 APTT 28 SECONDS (21-34) 01/15/19 08:18 Attending/Attestation - Attestation I have personally seen and examined this patient.: Yes I have fully participated in the care of the patient.: Yes I have reviewed all pertinent clinical information, including history, physical exam and plan: Yes Notes (Text): no acute distress PICC line for continued Abx until 01/24 d/c planning
--- NOTE | 2019-01-17 13:12 | RAD ---
HISTORY: verify right PICC COMPARISON: Chest x-ray performed 01/09/19 TECHNIQUE: Chest, one view. FINDINGS: Examination limited by habitus. Right-sided PICC extends expected location of the SVC. LUNGS: No focal consolidation. Please note that chest x-ray has limited sensitivity for the detection of pulmonary masses. PLEURA: No significant pleural effusion identified. No definite pneumothorax . CARDIOVASCULAR: Borderline cardiomegaly. OSSEOUS STRUCTURES: Degenerative changes of the spine. VISUALIZED UPPER ABDOMEN: Elevation of the right hemidiaphragm. OTHER FINDINGS: None. IMPRESSION: Right-sided PICC extends to the expected location of the SVC. Borderline cardiomegaly.
[2019-01-17] MEDS: Digoxin 125 mcg (0.125 mg) Tab PO SCH (18:12)
[2019-01-17 18:13] VITALS: PULSE 82
--- NOTE | 2019-01-17 18:52 | CP.PCM.PN ---
Subjective - Date & Time of Evaluation Date of Evaluation: 01/17/19 Time of Evaluation: 18:00 - Subjective Subjective: dictated Objective - Vital Signs/Intake and Output Vital Signs (last 24 hours): Temp Pulse Resp BP Pulse Ox 98.3 F 89 20 157/84 H 96 01/17/19 15:00 01/17/19 15:00 01/17/19 15:00 01/17/19 15:00 01/17/19 15:00 - Medications Medications: Current Medications Acetaminophen/Codeine Phosphate (Tylenol/Codeine Elixir) 5 ml PO Q6 PRN PRN Reason: Pain, moderate (4-7) Stop: 01/22/19 23:17 Last Admin: 01/16/19 16:44 Dose: 5 ml Al Hydrox/Mg Hydrox/Simethicone (Maalox 30 Ml) 30 ml PO Q6H PRN PRN Reason: Indigestion / Heartburn Last Admin: 01/14/19 12:40 Dose: 30 ml Alprazolam (Xanax) 0.5 mg PO Q8H PRN PRN Reason: Anxiety Last Admin: 01/17/19 10:16 Dose: 0.5 mg Calcium Carbonate (Oscal) 500 mg PO DAILY [facility] Last Admin: 01/17/19 10:06 Dose: 500 mg Dextrose (Dextrose 50% Inj) 0 ml IV STAT PRN; Protocol PRN Reason: Hypoglycemia Protocol Dextrose (Glutose 15) 0 gm PO ONCE PRN; Protocol PRN Reason: Hypoglycemia Protocol Digoxin (Digoxin) 0.125 mg PO DAILY@1800 [facility] Last Admin: 01/17/19 18:12 Dose: 0.125 mg Duloxetine HCl (Cymbalta) 90 mg PO DAILY [facility] Last Admin: 01/17/19 10:07 Dose: 90 mg Fluticasone/Vilanterol (Breo Ellipta 200-25 Mcg Inh) 1 puff INH RQD [facility] Last Admin: 01/17/19 08:22 Dose: 1 puff Folic Acid (Folic Acid) 1 mg PO DAILY [facility] Last Admin: 01/17/19 10:07 Dose: 1 mg Glucagon (Glucagen Diagnostic Kit) 0 mg IM STAT PRN; Protocol PRN Reason: Hypoglycemia Protocol Heparin Sodium (Porcine) (Heparin) 5,000 units SC Q8 [facility] Last Admin: 01/14/19 06:08 Dose: 5,000 units Hydroxychloroquine Sulfate (Plaquenil) 200 mg PO BID TC; Protocol Last Admin: 01/17/19 18:12 Dose: 200 mg Piperacillin Sod/Tazobactam (Sod 3.375 gm/ Sodium Chloride) 100 mls @ 200 mls/hr IVPB Q6H TC; Protocol Last Admin: 01/17/19 18:14 Dose: 200 mls/hr Vancomycin HCl 1,000 mg/ (Sodium Chloride) 250 mls @ 166.6 mls/hr IVPB Q12H TC; Protocol Last Admin: 01/17/19 13:18 Dose: 166.6 mls/hr Insulin Human Isoph/Insulin Regular (Novolin 70/30 (70/30 Units/Ml) 10 Ml) 10 units SC ACB TC Last Admin: 01/17/19 08:35 Dose: 10 units Insulin Human Isoph/Insulin Regular (Novolin 70/30 (70/30 Units/Ml) 10 Ml) 3 units SC ACD [facility] Last Admin: 01/17/19 18:14 Dose: 3 unit Insulin Human Regular (Novolin R) 0 unit SC ACHS [facility]; Protocol Last Admin: 01/17/19 18:14 Dose: 8 unit Lactobacillus Acidophilus (Lactobacillus) 1 cap PO BID TC Last Admin: 01/17/19 18:12 Dose: 1 cap Methotrexate (Methotrexate) 15 mg PO QWK TC Last Admin: 01/14/19 14:17 Dose: 15 mg Pantoprazole Sodium (Protonix Ec Tab) 40 mg PO DAILY [facility] Last Admin: 01/17/19 10:07 Dose: 40 mg Prednisone (Prednisone Tab) 10 mg PO ONCE ONE Stop: 01/18/19 11:01 Rosuvastatin Calcium (Crestor) 10 mg PO HS TC Last Admin: 01/16/19 21:52 Dose: 10 mg Trazodone HCl (Desyrel) 100 mg PO HS TC Last Admin: 01/16/19 21:52 Dose: 100 mg - Labs Labs: 01/17/19 07:22 01/17/19 07:22 PT 12.4 SECONDS (9.7-12.2) H 01/15/19 08:18 INR 1.1 01/15/19 08:18 APTT 28 SECONDS (21-34) 01/15/19 08:18
--- NOTE | 2019-01-17 22:55 | CP.PCM.PN ---
Subjective - Date & Time of Evaluation Date of Evaluation: 01/17/19 Time of Evaluation: 13:40 - Subjective Subjective: Patient seen and evaluated Denies chest pain and dyspnea Objective - Vital Signs/Intake and Output Vital Signs (last 24 hours): Temp Pulse Resp BP Pulse Ox 98.3 F 89 20 157/84 H 96 01/17/19 15:00 01/17/19 15:00 01/17/19 15:00 01/17/19 15:00 01/17/19 15:00 - Medications Medications: Current Medications Acetaminophen/Codeine Phosphate (Tylenol/Codeine Elixir) 5 ml PO Q6 PRN PRN Reason: Pain, moderate (4-7) Stop: 01/22/19 23:17 Last Admin: 01/16/19 16:44 Dose: 5 ml Al Hydrox/Mg Hydrox/Simethicone (Maalox 30 Ml) 30 ml PO Q6H PRN PRN Reason: Indigestion / Heartburn Last Admin: 01/14/19 12:40 Dose: 30 ml Alprazolam (Xanax) 0.5 mg PO Q8H PRN PRN Reason: Anxiety Last Admin: 01/17/19 22:35 Dose: 0.5 mg Calcium Carbonate (Oscal) 500 mg PO DAILY [facility] Last Admin: 01/17/19 10:06 Dose: 500 mg Dextrose (Dextrose 50% Inj) 0 ml IV STAT PRN; Protocol PRN Reason: Hypoglycemia Protocol Dextrose (Glutose 15) 0 gm PO ONCE PRN; Protocol PRN Reason: Hypoglycemia Protocol Digoxin (Digoxin) 0.125 mg PO DAILY@1800 [facility] Last Admin: 01/17/19 18:12 Dose: 0.125 mg Duloxetine HCl (Cymbalta) 90 mg PO DAILY [facility] Last Admin: 01/17/19 10:07 Dose: 90 mg Fluticasone/Vilanterol (Breo Ellipta 200-25 Mcg Inh) 1 puff INH RQD [facility] Last Admin: 01/17/19 08:22 Dose: 1 puff Folic Acid (Folic Acid) 1 mg PO DAILY [facility] Last Admin: 01/17/19 10:07 Dose: 1 mg Glucagon (Glucagen Diagnostic Kit) 0 mg IM STAT PRN; Protocol PRN Reason: Hypoglycemia Protocol Heparin Sodium (Porcine) (Heparin) 5,000 units SC Q8 [facility] Last Admin: 01/14/19 06:08 Dose: 5,000 units Hydroxychloroquine Sulfate (Plaquenil) 200 mg PO BID [facility]; Protocol Last Admin: 01/17/19 18:12 Dose: 200 mg Piperacillin Sod/Tazobactam (Sod 3.375 gm/ Sodium Chloride) 100 mls @ 200 mls/hr IVPB Q6H [facility]; Protocol Last Admin: 01/17/19 21:25 Dose: 200 mls/hr Vancomycin HCl 1,000 mg/ (Sodium Chloride) 250 mls @ 166.6 mls/hr IVPB Q12H [facility]; Protocol Last Admin: 01/17/19 13:18 Dose: 166.6 mls/hr Insulin Human Isoph/Insulin Regular (Novolin 70/30 (70/30 Units/Ml) 10 Ml) 10 units SC ACB TC Last Admin: 01/17/19 08:35 Dose: 10 units Insulin Human Isoph/Insulin Regular (Novolin 70/30 (70/30 Units/Ml) 10 Ml) 3 units SC ACD [facility] Last Admin: 01/17/19 18:14 Dose: 3 unit Insulin Human Regular (Novolin R) 0 unit SC ACHS [facility]; Protocol Last Admin: 01/17/19 21:02 Dose: Not Given Lactobacillus Acidophilus (Lactobacillus) 1 cap PO BID TC Last Admin: 01/17/19 18:12 Dose: 1 cap Methotrexate (Methotrexate) 15 mg PO QWK [facility] Last Admin: 01/14/19 14:17 Dose: 15 mg Pantoprazole Sodium (Protonix Ec Tab) 40 mg PO DAILY [facility] Last Admin: 01/17/19 10:07 Dose: 40 mg Prednisone (Prednisone Tab) 10 mg PO ONCE ONE Stop: 01/18/19 11:01 Rosuvastatin Calcium (Crestor) 10 mg PO HS TC Last Admin: 01/17/19 21:24 Dose: 10 mg Trazodone HCl (Desyrel) 100 mg PO HS TC Last Admin: 01/17/19 21:24 Dose: 100 mg - Labs Labs: 01/17/19 07:22 01/17/19 07:22 PT 12.4 SECONDS (9.7-12.2) H 01/15/19 08:18 INR 1.1 01/15/19 08:18 APTT 28 SECONDS (21-34) 01/15/19 08:18
[2019-01-18] MEDS: Piperacillin/Tazobact 3.375 GM in Sodium Chloride 100 ML IVPB SCH (03:26)
--- NOTE | 2019-01-18 03:32 | PN ---
DATE: 01/17/2019 INFECTIOUS DISEASE FOLLOWUP SUBJECTIVE: The patient is awake and alert. She says that she got the PICC line, and she will be going to a rehab. She was asking me when she is going, I really did not know. PHYSICAL EXAMINATION: VITAL SIGNS: T-max is 98.3, pulse 89, blood pressure 157/84, respirations are 20. She is not wheezing or coughing, and her temperatures have been stable. HEENT: Head is atraumatic. NECK: Supple. LUNGS: Clear. HEART: S1 and S2 are regular. ABDOMEN: Soft and nontender. No guarding, no rigidity present. EXTREMITIES: Still have mild edema. Right PICC line present. LABORATORY DATA: Labs are noted. Labs show white count is 15.2, hemoglobin is 11.7, hematocrit 36.8, platelet count is 265. ASSESSMENT AND PLAN: She also has lupus and is also on steroids which may be also causing elevation at this time. She did come with chronic obstructive pulmonary disease exacerbation and also has staphylococcal epidermidis bacteremia and history of lupus. Her Port-A-Cath was removed, and she says she will need a new one which will be inserted as outpatient, and she is back on her prednisone 10 mg daily at this time. We will follow. Maritza Spann MD
[2019-01-18 07:42] LABS: BASO # 0.1 K/uL (0.0-0.2); BASO % 0.4 % (0.0-2.0); EOS # 0.4 K/uL (0.0-0.7); EOS % 2.7 % (0.0-4.0); HEMOGLOBIN 11.7 g/dL (11.0-16.0); LYMPH % 13.3 % (20.0-40.0); MEAN CELL VOLUME 81.9 fL (81.0-99.0); MEAN CORPUSCULAR HEMOGLOBIN 25.9 pg (27.0-31.0); MEAN CORPUSCULAR HGB CONC 31.6 g/dL (33.0-37.0); MEAN PLATELET VOLUME 8.1 fL (7.2-11.7); MONO # 0.8 K/uL (0.0-0.8); MONO % 5.2 % (0.0-10.0); NEUT % 78.4 % (50.0-75.0); NRBC % 0.1 % (0.0-2.0); RBC 4.52 Mil/uL (3.80-5.20); RED CELL DISTRIBUTION WIDTH 17.1 % (11.5-14.5); WHITE BLOOD COUNT 15.3 K/uL (4.8-10.8)
[2019-01-18 08:13] LABS: ALBUMIN 4.1 g/dL (3.5-5.0); ALT/SGPT 32 U/L (9-52); AST/SGOT 49 U/L (14-36); BLOOD UREA NITROGEN 17 mg/dL (7-17); CALCIUM 8.3 mg/dl (8.6-10.4); GFR NON-AFRICAN AMERICAN > 60
[2019-01-18] MEDS: (Novolin R) Insulin Human Regular 100 units/ml vial SC SCH ×3 (08:30→17:57)
[2019-01-18] MEDS: Lactobacillus Acidophilus 500 MU Cap PO SCH ×2 (09:38→17:56)
[2019-01-18] MEDS: (Novolin 70/30) NPH/Regular 70/30 Units/ml 10 ml vial SC SCH ×2 (09:39→17:57)
[2019-01-18] MEDS: Pantoprazole 40 mg EC Tab PO SCH (09:47)
[2019-01-18] MEDS: Fluticasone-Vilanterol 200/25mcg Diskus INH SCH (10:45)
[2019-01-18] MEDS: Acetaminophen/Codeine elixir 120-12mg/5ml PO PRN (11:35)
[2019-01-18] MEDS ORDERED: Piperacillin/Tazobact 3.375 GM in Sodium Chloride 100 ML IVPB SCH (16:00)
[2019-01-18 17:02] VITALS: BP 148/79; PULSE 81; TEMP 97.5; O2SAT 95
[2019-01-18] MEDS: Digoxin 125 mcg (0.125 mg) Tab PO SCH (17:56)
--- NOTE | 2019-01-18 17:59 | CP.PCM.DIS ---
Provider - Provider Date of Admission: 01/14/19 16:31 Attending physician: Arianna Tam DO Consults: 01/10/19 01:56 Psychiatry Consult Routine Comment: Consulting Provider: Taylor Orellana Consulting Physician: Taylor Orellana Reason for Consult: Expressed suicidal thoughts due to pain 01/10/19 09:52 Infectious Disease Consult Routine Comment: Consulting Provider: Maritza Spann Consulting Physician: Maritza Spann Reason for Consult: leukocytosis, lupus, RA 01/11/19 11:29 Pulmonology Consult Routine Comment: Consulting Provider: Rodrigo Apple Consulting Physician: Rodrigo Apple Reason for Consult: COPD Exacerbation. Hx Lupus and RA. Likely Fibrosis. Solumedrol Breo 01/12/19 11:31 Vascular Surgery Routine Comment: Consulting Provider: Kyaw Tavera Physician Instructions: Reason For Exam: blood cx +. Remove/replace George Cath 01/13/19 10:54 Cardiology Consult Routine Comment: Questionable Hx CHF. Taking Dig. Recent Echo NO HF Consulting Provider: Otilio Merrill Consulting Physician: Otilio Merrill Reason for Consult: Questionable Hx CHF. Taking Dig. Recent Echo NO HF Time Spent in preparation of Discharge (in minutes): 45 Diagnosis - Discharge Diagnosis (1) Hyperlipemia Status: Chronic (2) Diabetes Status: Chronic (3) Smoking history Status: Chronic (4) Diarrhea Status: Resolved (5) Leukocytosis Status: Acute (6) Exacerbation of systemic lupus Status: Resolved (7) Lower leg DVT (deep venous thromboembolism), chronic Status: Resolved (8) CHF (congestive heart failure) Status: Chronic (9) COPD (chronic obstructive pulmonary disease) Status: Chronic (10) Rheumatoid arthritis Status: Chronic (11) SLE (systemic lupus erythematosus) Status: Chronic (12) Infection due to Port-A-Cath Status: Resolved (13) Bloodstream infection due to Port-A-Cath Status: Resolved Hospital Course - Lab Results Lab Results: Micro Results 01/15/19 14:08 Blood Blood Culture - Preliminary NO GROWTH AFTER 3 DAYS 01/12/19 17:07 Blood Blood Culture - Final NO GROWTH AFTER 5 DAYS 01/12/19 17:07 Blood Gram Stain - Final TEST NOT PERFORMED 01/12/19 13:40 Blood Blood Culture - Final NO GROWTH AFTER 5 DAYS 01/12/19 13:40 Blood Gram Stain - Final TEST NOT PERFORMED 01/15/19 13:43 Urine Random Urine Culture - Final No Growth (<1,000 CFU/ML) 01/09/19 23:57 Blood Blood Culture - Final Coagulase Neg Staphylococcus 01/09/19 23:57 Blood Gram Stain - Final 01/09/19 23:57 Blood S.aureus & Coag-Neg Staph PNA FISH - Final 01/09/19 23:57 Blood Blood Culture - Final Coagulase Neg Staphylococcus 01/09/19 23:57 Blood Gram Stain - Final Most Recent Lab Values WBC 15.3 K/uL (4.8-10.8) H 01/18/19 07:35 RBC 4.52 Mil/uL (3.80-5.20) 01/18/19 07:35 Hgb 11.7 g/dL (11.0-16.0) 01/18/19 07:35 Hct 37.0 % (34.0-47.0) 01/18/19 07:35 MCV 81.9 fL (81.0-99.0) 01/18/19 07:35 MCH 25.9 pg (27.0-31.0) L 01/18/19 07:35 MCHC 31.6 g/dL (33.0-37.0) L 01/18/19 07:35 RDW 17.1 % (11.5-14.5) H 01/18/19 07:35 Plt Count 264 K/uL (130-400) 01/18/19 07:35 MPV 8.1 fL (7.2-11.7) 01/18/19 07:35 Neut % (Auto) 78.4 % (50.0-75.0) H 01/18/19 07:35 Lymph % (Auto) 13.3 % (20.0-40.0) L 01/18/19 07:35 [place] % (Auto) 5.2 % (0.0-10.0) 01/18/19 07:35 Eos % (Auto) 2.7 % (0.0-4.0) 01/18/19 07:35 Baso % (Auto) 0.4 % (0.0-2.0) 01/18/19 07:35 Neut # (Auto) 12.0 K/uL (1.8-7.0) H 01/18/19 07:35 Lymph # (Auto) 2.0 K/uL (1.0-4.3) 01/18/19 07:35 [place] # (Auto) 0.8 K/uL (0.0-0.8) 01/18/19 07:35 Eos # (Auto) 0.4 K/uL (0.0-0.7) 01/18/19 07:35 Baso # (Auto) 0.1 K/uL (0.0-0.2) 01/18/19 07:35 Neutrophils % (Manual) 81 % (50-75) H 01/15/19 08:18 Band Neutrophils % 6 % (0-2) H 01/15/19 08:18 Lymphocytes % (Manual) 10 % (20-40) L 01/15/19 08:18 Reactive Lymphs % 1 % (0-0) H 01/12/19 08:14 Monocytes % (Manual) 2 % (0-10) 01/15/19 08:18 Eosinophils % (Manual) 1 % (0-4) 01/15/19 08:18 Platelet Estimate Normal (NORMAL) 01/15/19 08:18 Giant Platelets Present 01/12/19 08:14 Polychromasia Slight 01/11/19 07:04 Hypochromasia (manual) Slight 01/12/19 08:14 Anisocytosis (manual) Slight 01/12/19 08:14 Stomatocytes Slight 01/10/19 06:18 PT 12.4 SECONDS (9.7-12.2) H 01/15/19 08:18 INR 1.1 01/15/19 08:18 APTT 28 SECONDS (21-34) 01/15/19 08:18 pO2 49 mm/Hg (30-55) 01/10/19 01:26 VBG pH 7.48 (7.32-7.43) H 01/10/19 01:26 VBG pCO2 41 mmHg (40-60) 01/10/19 01:26 VBG HCO3 29.6 mmol/L 01/10/19 01:26 VBG Total CO2 31.8 mmol/L (22-28) H 01/10/19 01:26 VBG O2 Sat (Calc) 89.4 % (40-65) H 01/10/19 01:26 VBG Base Excess 6.4 mmol/L (0.0-2.0) H 01/10/19 01:26 VBG Potassium 3.9 mmol/L (3.6-5.2) 01/10/19 01:26 Sodium 138.0 mmol/l (132-148) 01/10/19 01:26 Chloride 105.0 mmol/L (98-107) 01/10/19 01:26 Glucose 151 mg/dl (65-105) H 01/10/19 01:26 Lactate 1.9 mmol/L (0.7-2.1) 01/10/19 01:26 Sodium 137 mmol/L (132-148) 01/18/19 07:35 Potassium 5.2 mmol/L (3.6-5.2) 01/18/19 07:35 Chloride 103 mmol/L (98-107) 01/18/19 07:35 Carbon Dioxide 32 mmol/L (22-30) H 01/18/19 07:35 Anion Gap 7 (10-20) L 01/18/19 07:35 BUN 17 mg/dL (7-17) 01/18/19 07:35 Creatinine 0.8 mg/dL (0.7-1.2) 01/18/19 07:35 Est GFR ( Amer) > 60 01/18/19 07:35 Est GFR (Non-Af Amer) > 60 01/18/19 07:35 POC Glucose (mg/dL) 232 mg/dL (65-110) H 01/18/19 16:37 Random Glucose 102 mg/dL (65-105) D 01/18/19 07:35 Hemoglobin A1c 7.5 % (4.2-6.5) H D 01/14/19 08:05 Calcium 8.3 mg/dl (8.6-10.4) L 01/18/19 07:35 Phosphorus 3.2 mg/dL (2.5-4.5) 01/16/19 07:58 Magnesium 2.5 mg/dL (1.6-2.3) H 01/16/19 07:58 Total Bilirubin 0.8 mg/dL (0.2-1.3) 01/18/19 07:35 AST 49 U/L (14-36) H D 01/18/19 07:35 ALT 32 U/L (9-52) 01/18/19 07:35 Alkaline Phosphatase 73 U/L (38-126) 01/18/19 07:35 Total Creatine Kinase 204 U/L (30-135) H 01/10/19 01:19 NT-Pro-B Natriuret Pep 420 pg/mL (0-900) 01/11/19 07:04 Total Protein 7.1 g/dL (6.3-8.3) 01/18/19 07:35 Albumin 4.1 g/dL (3.5-5.0) 01/18/19 07:35 Globulin 3.6 gm/dL (2.2-3.9) 01/18/19 07:35 Albumin/Globulin Ratio 1.0 (1.0-2.1) 01/18/19 07:35 Lipase 27 U/L (23-300) 01/10/19 01:19 Procalcitonin 0.28 NG/ML (0.19-0.49) 01/15/19 14:08 Venous Blood Potassium 3.9 mmol/L (3.6-5.2) 01/10/19 01:26 Urine Color Dora (YELLOW) 01/10/19 01:19 Urine Clarity Hazy (Clear) 01/10/19 01:19 Urine pH 5.0 (5.0-8.0) 01/10/19 01:19 Ur Specific [place] 1.031 (1.003-1.030) H 01/10/19 01:19 Urine Protein 2+ mg/dL (NEGATIVE) H 01/10/19 01:19 Urine Glucose (UA) Normal mg/dL (Normal) 01/10/19 01:19 Urine Ketones Negative mg/dL (NEGATIVE) 01/10/19 01:19 Urine Blood Negative (NEGATIVE) 01/10/19 01:19 Urine Nitrate Negative (NEGATIVE) 01/10/19 01:19 Urine Bilirubin Negative (NEGATIVE) 01/10/19 01:19 Urine Urobilinogen Normal mg/dL (0.2-1.0) 01/10/19 01:19 Ur Leukocyte Esterase Neg Elijah/uL (Negative) 01/10/19 01:19 Urine WBC (Auto) 2 /hpf (0-5) 01/10/19 01:19 Urine RBC (Auto) 2 /hpf (0-3) 01/10/19 01:19 Ur Squamous Epith Cells 2 /hpf (0-5) 01/10/19 01:19 Hyaline Casts 0-2 /lpf (0-2) 01/10/19 01:19 Vancomycin Trough 16.2 ug/mL (5.0-10.0) H 01/15/19 01:27 Random Vancomycin 5.5 ug/mL 01/15/19 14:08 Salicylates < 1.0 mg/dL 1 01/09/19 23:18 Urine Opiates Screen Positive (NEGATIVE) H 01/10/19 01:19 Urine Methadone Screen Negative (NEGATIVE) 01/10/19 01:19 Acetaminophen < 10.0 ug/mL (10.0-30.0) L 01/09/19 23:18 Ur Barbiturates Screen Negative (NEGATIVE) 01/10/19 01:19 Ur Phencyclidine Scrn Negative (NEGATIVE) 01/10/19 01:19 Ur Amphetamines Screen Negative (NEGATIVE) 01/10/19 01:19 U Benzodiazepines Scrn Negative (NEGATIVE) 01/10/19 01:19 U Oth Cocaine Metabols Negative (NEGATIVE) 01/10/19 01:19 U Cannabinoids Screen Negative (NEGATIVE) 01/10/19 01:19 Alcohol, Quantitative < 10 mg/dl (0-10) 01/09/19 23:18 C. difficile Ag & Toxin Negative (NEGATIVE) 01/13/19 11:47 Hepatitis A IgM Ab Negative (NEGATIVE) 01/10/19 06:18 Hep Bs Antigen Negative (NEGATIVE) 01/10/19 06:18 Hep B Core IgM Ab Negative (NEGATIVE) 01/10/19 06:18 Hepatitis C Antibody Negative (NEGATIVE) 01/10/19 06:18 HIV 1&2 Antibody Screen Negative (NEGATIVE) 01/10/19 06:18 Influenza Typ A,B (EIA) Negative for flu a/b (NEGATIVE) 01/09/19 23:58 - Hospital Course Hospital Course: Patient is a 58 year old female with PMHx asthma, COPD, Lupus , RA, CHF, HTN, HLD, osteoporosis, anxiety, bipolar, and depression who presents to ED with complaint of whole-body pain. Patient states that she takes Tylenol with codeine for pain at home, but ran out of her prescription before her appointment with her Envelope Cutter, which was scheduled for 01/12. She had an appointment with Dr. Willis today, but states that he does not fill her RX for the Tylenol #4. She has also been out of her ventolin and has been mildly short of breath. She did admit subjective fevers/chills when asked. Denies abdominal pain, nausea, vomiting, diarrhea, dysuria, increased frequency. Also patient did admit to telling ER doctor that she wanted to kill herself because of the pain. PMHx: Asthma, COPD, Lupus , RA, CHF, HTN, HLD, osteoporosis, Anxiety, bipolar, depression SxH: cholecystectomy, tonsillectomy, IVC filter placement, c section SocH: 2 cigs/day, smoked since age 17 - used to smoke more, cut down since d eveloiping COPD. Rare/occasional etoh. Denies recreational drug use FamH: mom DM, asthma, arthritis, atherosclerosis. dad , cirrhosis Allergies: dilaudid, mependine Meds: - Ventolin 2 puff q6h PRN - calcium carbonate 500 daily - Folic Acid 1mg PO daily - Plaquenil 200mg PO BID - Methotrexate 2.5mg 6 tabs PO on Tuesday - tylenol #4 300/30 Q8 PRN for pain - Digoxin 0.125mg PO daily - Cymbalta 60mg PO daily - Xanax 0.5mg PO TID PRN anxiety Pt admitted for dyspnea and exacerbation of her chronic SLE, COPD, and infection of her port, pt was treated for the infection with IV vanc zosyn. port was removed on 01/14. Pt is to have port replace after 01/24 when completion of IV zosyn is achieved. Pt SOB was treated with a prednisone taper. pt improved and can continue on home dose of prednisone as well as home meds. this is a summary, please refer to [facility] for complete records Discharge Exam - Head Exam Head Exam: ATRAUMATIC - Additional Findings Additional findings: General: AAOx3, NAD HEENT: NCA, EOMI, PERRLA, NO lymphadenopathy, NO pharyngeal erythema/exudate, NO thyromegaly, Nasal Turbinates are moist/nonerythematous/nonedematous, pain with neck ROM in flex ext sidebending Cardio: NS1 and NS2, NO M/R/G Resp: Diffuse scattered expiratory wheezing, However audible wheezing without stethescope not heard which has improved since admission. Patient is speaking in full sentences and shows NO signs of respiratory distress GI: BSx4, Soft, NT, Central Obesity, NO guarding/rebound tenderness Ext: Pulses are strong and equal, Capillary Refill is 2 seconds, NO edema noted Neuro: CN II through XII are grossly intact Discharge Plan - Follow Up Plan Condition: STABLE Disposition: REHAB FACILITY/REHAB UNIT Instructions: Peripherally-Inserted Central Catheter, Leukocytosis (DC) Additional Instructions: Pt is to continue her home medications as prescribed Pt is to continue 10 daily prednisone Pt is to continue IV Zosyn 3.375 q8 IV until 01/24- please remove PICC line when complete Pt is to follow up outpatient with Dr Willis and arrange for new Port, Referrals: Isaac Willis MD [Staff Provider] - Maritza Spann MD [Staff Provider] -
== END 2019-01-18 20:13 | DRG 543 ==
LOC: C.ER 21:45 → C.9E 01-10 00:32 → C.5S 01-10 06:06 → OBSVTOIN 01-14 16:31
PROVIDERS: ADMIT Hospitalist; ATTEND Hospitalist
PROC: 0JPV0WZ Removal of Totally Implantable Vascular Access Device from Upper Extremity Subcutaneous Tissue and Fascia, Open Approach (ICD-10-PCS; 2019-01-14)
PROC: 5A09457 Assistance with Respiratory Ventilation, 24-96 Consecutive Hours, Continuous Positive Airway Pressure (ICD-10-PCS; principal; 2019-01-14 11:00)
PROC: 02HV33Z Insertion of Infusion Device into Superior Vena Cava, Percutaneous Approach (ICD-10-PCS; 2019-01-17)
DX: T80.211A Bloodstream infection due to central venous catheter, initial encounter (principal); A41.9 Sepsis, unspecified organism; M32.9 Systemic lupus erythematosus, unspecified; F33.2 Major depressive disorder, recurrent severe without psychotic features; I50.9 Heart failure, unspecified; J44.1 Chronic obstructive pulmonary disease with (acute) exacerbation; I11.0 Hypertensive heart disease with heart failure; E10.65 Type 1 diabetes mellitus with hyperglycemia; J43.9 Emphysema, unspecified; M32.19 Other organ or system involvement in systemic lupus erythematosus; F17.210 Nicotine dependence, cigarettes, uncomplicated; E78.5 Hyperlipidemia, unspecified; G89.29 Other chronic pain; G47.33 Obstructive sleep apnea (adult) (pediatric); I25.10 Atherosclerotic heart disease of native coronary artery without angina pectoris; R45.851 Suicidal ideations; Z79.4 Long term (current) use of insulin; Z99.81 Dependence on supplemental oxygen; E66.9 Obesity, unspecified; Z68.41 Body mass index [BMI] 40.0-44.9, adult

== ENCOUNTER 2019-02-12 09:18 | Outpatient (CLI) | payer MEDICAID | END 2019-02-12 09:19 | disposition home or self-care (01) | LOC: C.PAT 09:18 ==

== ENCOUNTER 2019-02-16 10:48 | Day surgery (SDC) | payer MEDICAID ==
[2019-02-16] MEDS ORDERED: Lidocaine Hydrochloride 10 ML INJ ONE (13:09)
[2019-02-16] MEDS ORDERED: ceFAZolin 1 gm in NS 1 GM/100 ML BAG IVPB ONE ×2 (13:09→13:57)
[2019-02-16] MEDS ORDERED: HEPARIN-NS 5,000 UNITS/500 ML 5,000 UNIT/500 ML BAG IV ONE (13:09)
[2019-02-16] MEDS ORDERED: Midazolam 2 MG/2 ML VIAL ONE (13:22)
[2019-02-16] MEDS ORDERED: Propofol 10 mg/ml Inj (20 ML) ONE ×2 (13:22→13:59)
--- NOTE | 2019-02-16 14:32 | PCM.SURG1 ---
Surgeon's Initial Post Op Note - Surgeon's Notes Surgeon: Margo Tavera [employer] Viewer: none Type of Anesthesia: General LMA Anesthesia Administered By: Ronald Merino Pre-Operative Diagnosis: Fibromyalgia, poor IV access Operative Findings: 8F powerport Post-Operative Diagnosis: Poor IV access Operation Performed: R subclavian portacath insertion Specimen/Specimens Removed: none Estimated Blood Loss: EBL {In ML}: 10 Blood Products Given: N/A Drains Used: No Drains Post-Op Condition: Good Date of Surgery/Procedure: 02/16/19 Time of Surgery/Procedure: 14:32
--- NOTE | 2019-02-16 14:50 | RAD ---
Date of service: 02/16/2019 HISTORY: s/p portacath insertion COMPARISON: 01/17/2019. FINDINGS: Right Port-A-Cath terminates in the SVC. LUNGS: There are low lung volumes. There is moderate pulmonary venous congestion PLEURA: No pleural effusions or pneumothorax. CARDIOVASCULAR: Severe cardiomegaly with prominent central vasculature. No aortic atherosclerotic calcifications present. OSSEOUS STRUCTURES: Within normal limits for the patient's age. VISUALIZED UPPER ABDOMEN: Normal. OTHER FINDINGS: None. IMPRESSION: Right Port-A-Cath terminates in the SVC. Moderate cardiomegaly with prominent central vasculature and moderate pulmonary venous congestion.
[2019-02-16 15:58] VITALS: BP 108/57; PULSE 66; RESP 18; TEMP 97; O2SAT 98
--- NOTE | 2019-02-17 02:26 | OP ---
PROCEDURE DATE: 02/16/2019 PREOPERATIVE DIAGNOSIS: Poor IV access. POSTOPERATIVE DIAGNOSIS: Poor IV access. SURGEON: yKaw Tavera MD ANESTHESIA: General LMA. ANESTHESIOLOGIST: Chichi Merino CRNA PROCEDURE: Right subclavian Port-A-Cath insertion. DESCRIPTION OF PROCEDURE: With the patient in the supine position under adequate general anesthesia, a roll was placed between the scapulae and the right upper chest and lower neck were prepped and draped in the usual sterile manner. Infiltrating 1% lidocaine, a right subclavian vein puncture was performed and blood return obtained. A guidewire was passed into the superior vena cava. It was noted to pass easily and the position was confirmed with C-arm. A subcutaneous pocket was then created at the right upper chest in the area where the patient had a previous Port-A-Cath. The skin was infiltrated with 1% lidocaine and incision was reopened and the subcutaneous pocket was created. It was enlarged to accommodate the port. An 8-[place] PowerPort was then tunneled from the pocket site to the insertion site. The vein dilator and introducer were passed over the guidewire into the superior vena cava and again position was confirmed with C-arm. The guidewire and dilator were removed. The catheter was passed via the introducer and positioned in the lower portion of the superior vena cava. The position was again checked with C-arm. The catheter was trimmed at 20 cm at the pocket site and checked to the port which had been filled with heparinized saline. The catheter system was aspirated for blood return and again flushed with heparinized saline and the port was placed in the previously created pocket noted to lay easily with the membrane easily palpable. The catheter system was again aspirated and flushed and again examined with C-arm and the pocket was then closed with running subcuticular suture of 4-0 Monocryl and Steri-Strips. The insertion site was also closed with a subcuticular 4-0 Monocryl suture and Steri-Strips. Dry sterile dressing was applied. The patient tolerated the procedure well and transferred to the recovery room in stable condition. Estimated blood loss for the procedure was 10 mL. Kyaw Tavera MD MTDD
--- NOTE | 2019-02-17 09:16 | RAD ---
Date of service: 02/16/2019 PROCEDURE: Intraoperative Fluoroscopy. HISTORY: POOR VENOUS ACCESS FINDINGS: Fluoroscopic assistance was provided for right-sided venous access device placement. Please refer to the operative report from MELINDA Clayton.
== END 2019-02-16 17:39 | disposition home or self-care (01) ==
LOC: C.SDS 10:48
PROVIDERS: ATTEND Specialist
DX: Z45.2 Encounter for adjustment and management of vascular access device (principal); M79.7 Fibromyalgia
CPT/HCPCS: 36561; 71045; 77001; 82948; J2250; J2704; J3010

== ENCOUNTER 2019-02-21 16:40 | Observation (INO) | payer MEDICAID ==
[2019-02-21 16:41] VITALS: BMI 42.7
--- NOTE | 2019-02-21 17:37 | C.PDOC ---
History Of Present Illness 58 y/o female, a patient of Dr. Merrill, has history of chronic back pain, CHF, and cardiac disease. She had a routine check at Dr. Marte office today and states has chronic SOB but has been worsening for the last few weeks. States that she cant walk more than 3 blocks without stopping. Also complains of mild amount of chest discomfort with exacerbation and swelling on both legs that she states are getting worse. Patient has history of rheumatoid arthritis so she usually gets leg swelling, but this is more than usual. Patient saw Dr. Merrill in the office and states he wanted her admitted for exacerbation of COPD and angina. Time Seen by Provider: 02/21/19 17:08 Chief Complaint (Nursing): Shortness Of Breath History Per: Patient History/Exam Limitations: no limitations Onset/Duration Of Symptoms: Days Current Symptoms Are (Timing): Still Present Past Medical History Reviewed: Historical Data, Nursing Documentation, Vital Signs Vital Signs: Last Vital Signs Temp 98.2 F 02/21/19 16:57 Pulse 91 H 02/21/19 16:57 Resp 20 02/21/19 16:57 BP 110/69 02/21/19 16:57 Pulse Ox 98 02/21/19 16:57 - Medical History PMH: Anemia, Anxiety, Arthritis, Asthma, Bipolar Disorder, Cardia Arrhythmia, CHF, COPD, Depression, Emphysema, Gall Bladder Disease, HTN, Hypercholesterolemia, Osteoporosis, Peripheral Edema (no longer), Rheumatoid Arthritis, Sleep Apnea (c pap) Denies: Diabetes, Deep Vein Thrombosis, Hepatitis, Chronic Kidney Disease, Sexually Transmitted Disease Surgical History: Cholecystectomy, Tonsillectomy, - [facility] Procedures ASSISTANCE WITH RESPIRATORY VENTILATION, 24-96 HRS, CPAP (01/14/19) INSERTION OF INFUSION DEV INTO SUP VENA CAVA, PERC APPROACH (01/14/19) NASAL LACERATION SUTURE (11/07/13) NON-INVASIVE MECHANICAL VENTILATION (07/19/14) REMOVE VAD RESERVOIR FROM UP EXTREM SUBCU/FASCIA, OPEN (01/14/19) TETANUS TOXOID ADMINIST (11/07/13) Family History: States: Unknown Family Hx, [place] (Mother) - Social History Hx Tobacco Use: No Hx Alcohol Use: Yes Hx Substance Use: No - Immunization History Hx Tetanus Toxoid Vaccination: Yes Hx Influenza Vaccination: No Hx Pneumococcal Vaccination: Yes Review Of Systems Constitutional: Negative for: Fever Cardiovascular: Positive for: Chest Pain (chest discomfort). Negative for: Palpitations Respiratory: Positive for: Shortness of Breath Gastrointestinal: Negative for: Nausea, Vomiting, Abdominal Pain Genitourinary: Negative for: Dysuria, Hematuria Musculoskeletal: Positive for: Back Pain, Other (Leg swelling) Neurological: Negative for: Dizziness Physical Exam - Physical Exam Appears: Non-toxic, No Acute Distress, Other (morbidly obese) Skin: Warm, Dry Head: Atraumatic, Normacephalic Eye(s): bilateral: Normal Inspection Oral Mucosa: Moist Neck: Supple Chest: Symmetrical Cardiovascular: Rhythm Regular, No Murmur Respiratory: Normal Breath Sounds, No Rales, No Rhonchi, No Wheezing Extremity: Other (mild peripheral edema) Extremity: Bilateral: Normal ROM Neurological/Psych: Oriented x3, Normal Speech ED Course And Treatment - Laboratory Results Result Diagrams: 02/21/19 17:42 02/21/19 17:42 Lab Interpretation: No Changes Compared To Prior Results ECG: Interpreted By Me ECG Rhythm: Sinus Rhythm, ST/T Changes (nonspecific.) ECG Interpretation: No Acute Changes O2 Sat by Pulse Oximetry: 98 (RA) Pulse Ox Interpretation: Normal - Radiology CXR: Interpreted by Me CXR Interpretation: Yes: No Acute Disease Progress Note: 7:00 Patient states that she has chronic back pain and takes Tylenol #4 as needed. Does not appear to be in any distress but is requesting pain medication. She is lying comfortably on the stretcher talking on her phone. - Physician Consult Information Time Consulting Physician Contacted: 19:58 Physician Contacted: Minesh Andino Outcome Of Conversation: He will admit patient for cardiac evaluation as per Dr Merrill. Medical Decision Making Medical Decision Making: Plan: --EKG --Labs --Chest XR Disposition - Disposition Disposition: HOSPITALIZED Disposition Time: 19:51 Condition: STABLE - POA Present On Arrival: None - Clinical Impression Clinical Impression: COPD exacerbation, Chest pain, Chronic pain disorder - Scribe Statement The provider has reviewed the documentation as recorded by the Tyrell Vora Provider Attestation: All medical record entries made by the Tyrell were at my direction and personally dictated by me. I have reviewed the chart and agree that the record accurately reflects my personal performance of the history, physical exam, medical decision making, and the department course for this patient. I have also personally directed, reviewed, and agree with the discharge instructions and disposition.
[2019-02-21 17:45] LABS: BASO # 0.1 K/uL (0.0-0.2); BASO % 0.6 % (0.0-2.0); EOS # 0.2 K/uL (0.0-0.7); EOS % 1.9 % (0.0-4.0); LYMPH # 2.6 K/uL (1.0-4.3); LYMPH % 22.6 % (20.0-40.0); MEAN CELL VOLUME 82.7 fL (81.0-99.0); MEAN CORPUSCULAR HEMOGLOBIN 26.6 pg (27.0-31.0); MEAN CORPUSCULAR HGB CONC 32.2 g/dL (33.0-37.0); MEAN PLATELET VOLUME 7.1 fL (7.2-11.7); MONO # 0.5 K/uL (0.0-0.8); MONO % 4.3 % (0.0-10.0); NEUT % 70.6 % (50.0-75.0); RBC 3.99 Mil/uL (3.80-5.20); RED CELL DISTRIBUTION WIDTH 17.4 % (11.5-14.5); WHITE BLOOD COUNT 11.3 K/uL (4.8-10.8)
[2019-02-21 18:09] LABS: ALB/GLOB RATIO 1.1 (1.0-2.1); ALBUMIN 3.4 g/dL (3.5-5.0); ALT/SGPT 28 U/L (9-52); AST/SGOT 33 U/L (14-36); BLOOD UREA NITROGEN 20 mg/dL (7-17); CALCIUM 8.7 mg/dl (8.6-10.4); GFR NON-AFRICAN AMERICAN > 60
[2019-02-21 18:18] LABS: HEMOGLOBIN 10.6 g/dL (11.0-16.0)
[2019-02-21 18:20] LABS: B-TYPE NATRIURETIC PEPTIDE 91.3 pg/mL (0-900)
[2019-02-21] MEDS ORDERED: Albuterol 0.083% Inhal Sol (2.5 mg/3 mL) UD INH PRN (21:28)
[2019-02-21] MEDS ORDERED: Acetaminophen-Codeine 300/30 mg Tab PO PRN (21:28)
[2019-02-21] MEDS ORDERED: Albuterol-Ipratrop 3 mg / 0.5 (3 ml) UD INH PRN ×2 (22:00→22:30)
--- NOTE | 2019-02-21 22:12 | CP.PCM.HP ---
<Stephanie Gonzalez - Last Filed: 02/22/19 01:22> History of Present Illness - History of Present Illness History of Present Illness: cc: "everything hurts" Ms. Lee is a 58 year old female with a PMH lupus, rheumatoid arthritis, hypertension, COPD, depression/anxiety, diabetes, hyperlipidemia was sent in by her leveler helper, Dr. Merrill, for COPD exacerbation evaluation. She states that her chronic shortness of breath has been worse recently and she felt the start of a lupus flare yesterday. Today, she can't walk more than 3 blocks without stopping, and complains of increased swelling in her hands and legs. Denies chest pain, but complains of chest tightness generalized pain. PMH: SLE, RA, HTN, CHF, COPD, depression/anxiety, DM, HLD Med: Breo-Ellipta 200-25 INH 1 puff daily, Digoxin 125mg po daily, Duloxtine 90mg po daily, hydroxychloroquine 200mg po daily, methotrexate 7.5mg po q7d, Calcium/Vit D po BID, Prednisone 10mg po daily, Crestor 10mg po HS, trazodone 100mg po daily, Ventolin q6 prn All: Dilaudid, Demerol - Code Blue PSxHx: IVC filter, tonsillectomy, , cholecystectomy. L chest Portacath -> switched to R chest Portacath 1 week ago FamHx: mom DM, asthma, arthritis, atherosclerosis. dad , cirrhosis SocHx: 3cigs/day x 28 years, social wine, former crack cocaine. on disability PMD: Dr. Willis Cardio: Dr. Merrill Pulm: Dr. Choi Rheum: Dr. Matos Present on Admission - Present on Admission Any Indicators Present on Admission: Yes History of DVT/PE: Yes Review of Systems - Constitutional Constitutional: absent: Anorexia, Chills, Fever, Lethargy, Weakness - EENT Eyes: absent: Blurred Vision, Diplopia Ears: absent: Tinnitus Nose/Mouth/Throat: absent: Nasal Congestion, Nasal Discharge, Dysphagia, Sore Throat - Cardiovascular Cardiovascular: Claudication, Leg Edema. absent: Chest Pain, Leg Ulcers, Radiating Pain, Syncope - Respiratory Respiratory: Dyspnea on Exertion. absent: Cough, Wheezing - Gastrointestinal Gastrointestinal: Abdominal Pain, Early Satiety. absent: Diarrhea, Nausea, Vomiting - Genitourinary Genitourinary: absent: Difficulty Urinating, Dysuria - Musculoskeletal Musculoskeletal: Arthralgias, Myalgias, Stiffness - Integumentary Integumentary: Swelling. absent: Bleeding Lesions, Lesions - Neurological Neurological: absent: Numbness, Tingling - Hematologic/Lymphatic Hematologic: absent: Easy Bleeding, Easy Bruising Past Patient History - Infectious Disease Hx of Infectious Diseases: None - Past Medical History & Family History Past Medical History?: Yes - Past Social History Smoking Status: Former Smoker Alcohol: Social Drugs: Denies Home Situation {Lives}: With Family - CARDIAC Hx Cardia Arrhythmia: Yes Hx Congestive Heart Failure: Yes Hx Hypercholesterolemia: Yes Hx Hypertension: Yes Hx Peripheral Edema: Yes (no longer) - PULMONARY Hx Asthma: Yes Hx Chronic Obstructive Pulmonary Disease (COPD): Yes Hx Emphysema: Yes Hx Sleep Apnea: Yes (c pap) - HEENT Hx HEENT Problems: No - RENAL Hx Chronic Kidney Disease: No - ENDOCRINE/METABOLIC Hx Endocrine Disorders: Yes Hx Diabetes Mellitus Type 1: Yes Hx Systemic Lupus Erythematosus: Yes - HEMATOLOGICAL/ONCOLOGICAL Hx Anemia: Yes - INTEGUMENTARY Hx Dermatological Problems: No - MUSCULOSKELETAL/RHEUMATOLOGICAL Hx Arthritis: Yes Hx Osteoporosis: Yes Hx Rheumatoid Arthritis: Yes - GASTROINTESTINAL Hx Gall Bladder Disease: Yes - GENITOURINARY/GYNECOLOGICAL Hx Sexually Transmitted Disorders: No - PSYCHIATRIC Hx Anxiety: Yes Hx Bipolar Disorder: Yes Hx Depression: Yes Hx Substance Use: No - SURGICAL HISTORY Hx Cholecystectomy: Yes Hx Tonsillectomy: Yes - ANESTHESIA Hx Anesthesia: Yes Hx Anesthesia Reactions: No Hx Malignant Hyperthermia: No Meds Allergies/Adverse Reactions: Allergies Allergy/AdvReac Type Severity Reaction Status Date / Time hydromorphone HCl Allergy Severe ANAPHYLAXIS Verified 10/25/18 14:30 [From Dilaudid] meperidine HCl [From Demerol] Allergy Severe ANAPHYLAXIS Verified 10/25/18 14:30 Physical Exam - Constitutional Appears: Well, Non-toxic, No Acute Distress, Chronically Ill - Head Exam Head Exam: ATRAUMATIC, NORMOCEPHALIC - Eye Exam Eye Exam: EOMI, Normal appearance, PERRL Pupil Exam: NORMAL ACCOMODATION - ENT Exam ENT Exam: Mucous Membranes Moist - Neck Exam Neck exam: Positive for: Normal Inspection. Negative for: Lymphadenopathy - Respiratory Exam Respiratory Exam: Decreased Breath Sounds, Rales, NORMAL BREATHING PATTERN. absent: Accessory Muscle Use, Rhonchi, Wheezes Additional comments: mild rales, difficult to auscultate secondary to body habitus - Cardiovascular Exam Cardiovascular Exam: REGULAR RHYTHM, +S1, +S2. absent: Systolic Murmur - GI/Abdominal Exam GI & Abdominal Exam: Distended, Normal Bowel Sounds, Soft, Tenderness. absent: Guarding, Rebound Additional comments: morbidly obese TTP to deep palpation throughout - Extremities Exam Extremities exam: Positive for: normal capillary refill, pedal pulses present Additional comments: 2+ pitting edema distal to knees bilaterally - Back Exam Back exam: absent: CVA tenderness (L), CVA tenderness (R) - Neurological Exam Neurological exam: Alert, CN II-XII Intact, Oriented x3, Reflexes Normal - Psychiatric Exam Psychiatric exam: Anxious - Skin Skin Exam: Intact, Pallor, Warm Results - Vital Signs Recent Vital Signs: Last Vital Signs Temp 98.3 F 02/21/19 21:32 Pulse 72 02/21/19 21:32 Resp 19 02/21/19 21:32 BP 131/83 02/21/19 21:32 Pulse Ox 94 L 02/21/19 21:32 - Labs Result Diagrams: 02/21/19 17:42 02/21/19 17:42 Labs: Laboratory Results - last 24 hr 02/21/19 02/21/19 17:42 17:42 WBC 11.3 H RBC 3.99 Hgb 10.6 L D Hct 33.0 L MCV 82.7 MCH 26.6 L MCHC 32.2 L RDW 17.4 H Plt Count 244 MPV 7.1 L Neut % (Auto) 70.6 Lymph % (Auto) 22.6 [place] % (Auto) 4.3 Eos % (Auto) 1.9 Baso % (Auto) 0.6 Neut # (Auto) 8.0 H Lymph # (Auto) 2.6 [place] # (Auto) 0.5 Eos # (Auto) 0.2 Baso # (Auto) 0.1 Sodium 139 Potassium 4.0 Chloride 103 Carbon Dioxide 31 H Anion Gap 9 L BUN 20 H Creatinine 0.9 Est GFR ( Amer) > 60 Est GFR (Non-Af Amer) > 60 Random Glucose 219 H D Calcium 8.7 Total Bilirubin 0.2 AST 33 ALT 28 Alkaline Phosphatase 69 Troponin I < 0.0120 NT-Pro-B Natriuret Pep 91.3 Total Protein 6.4 Albumin 3.4 L Globulin 3.0 Albumin/Globulin Ratio 1.1 - EKG Data EKG Interpreted by: ER Physician EKG shows normal: Sinus rhythm Rate: Normal Assessment & Plan - Assessment and Plan (Free Text) Assessment: 58yo obese female PMH SLE, RA, HTN, CHF, COPD, depression/anxiety, DM, HLD sent in by her leveler helper, Dr. Merrill, for COPD exacerbation. Plan: Shortness of Breath COPD vs. CHF exacerbation CXR (02/21): pending read. prelim: negative, R Portacath in place Trop neg, BNP 91.3 - home Digoxin 0.125mg po daily - Morphine 1mg IVP q4 prn - Solumedol 40 IVP daily - O2 via NC prn - Pulm consulted: Dr. Choi - help appreciated - Cardio consulted: Dr. Merrill - help appreciated - monitor on TELE SLE - home Tylenol 4 NF -> Tylenol 3 po q6 prn - home Prednisone 10mg po daily -> Solumedrol 40 IVP daily - home Hydroxychloroquine 200mg po BID - home Methotrexate 7.5mg po q7d COPD - Duonebs INH rQ4 prn Hyperlipidemia - home Crestor 10mg po HS Anxiety/Depression - home Xanax 1mg po HS prn - home Cymbalta 90mg po HS - home Trazodone 100mg po HS PPx - DVT: ASA 81mg po daily, SCDs. Hx of DVT, IVC filter in place - Diet: HHD 2g Na, Low Carb - home Calcium/VitD 1 tab po BID - home Folic Acid 1mg po daily d/w Dr. hTu Gonzalez PGY-1 - Date & Time Date: 02/21/19 Time: 20:30 <Minesh Andino - Last Filed: 02/22/19 06:40> Results - Vital Signs Recent Vital Signs: Last Vital Signs Temp 97.8 F 02/21/19 23:15 Pulse 69 02/22/19 04:18 Resp 20 02/21/19 23:15 BP 138/68 02/21/19 23:15 Pulse Ox 96 02/21/19 23:15 - Labs Result Diagrams: 02/21/19 17:42 02/21/19 17:42 Labs: Laboratory Results - last 24 hr 02/21/19 02/21/19 17:42 17:42 WBC 11.3 H RBC 3.99 Hgb 10.6 L D Hct 33.0 L MCV 82.7 MCH 26.6 L MCHC 32.2 L RDW 17.4 H Plt Count 244 MPV 7.1 L Neut % (Auto) 70.6 Lymph % (Auto) 22.6 [place] % (Auto) 4.3 Eos % (Auto) 1.9 Baso % (Auto) 0.6 Neut # (Auto) 8.0 H Lymph # (Auto) 2.6 [place] # (Auto) 0.5 Eos # (Auto) 0.2 Baso # (Auto) 0.1 Sodium 139 Potassium 4.0 Chloride 103 Carbon Dioxide 31 H Anion Gap 9 L BUN 20 H Creatinine 0.9 Est GFR ( Amer) > 60 Est GFR (Non-Af Amer) > 60 Random Glucose 219 H D Calcium 8.7 Total Bilirubin 0.2 AST 33 ALT 28 Alkaline Phosphatase 69 Troponin I < 0.0120 NT-Pro-B Natriuret Pep 91.3 Total Protein 6.4 Albumin 3.4 L Globulin 3.0 Albumin/Globulin Ratio 1.1 Assessment & Plan - Date & Time Date: 02/22/19 (I have seen and examined the patient. I agree with the findings and plan of care as documented by Dr. Gonzalez. Patient with COPD and SLE exacerbation. Continue home meds. Add Solumedrol. Symptomatic treatment. History of anxiety. Continue home meds. Monitor for acute changes.) Time: 06:39 Attending/Attestation - Attestation I have personally seen and examined this patient.: Yes I have fully participated in the care of the patient.: Yes I have reviewed all pertinent clinical information: Yes
[2019-02-22 07:50] LABS: BASO # 0.1 K/uL (0.0-0.2); BASO % 0.7 % (0.0-2.0); EOS # 0.2 K/uL (0.0-0.7); EOS % 1.8 % (0.0-4.0); HEMOGLOBIN 10.6 g/dL (11.0-16.0); LYMPH # 3.2 K/uL (1.0-4.3); LYMPH % 31.6 % (20.0-40.0); MEAN CELL VOLUME 83.1 fL (81.0-99.0); MEAN CORPUSCULAR HEMOGLOBIN 27.1 pg (27.0-31.0); MEAN CORPUSCULAR HGB CONC 32.6 g/dL (33.0-37.0); MEAN PLATELET VOLUME 7.7 fL (7.2-11.7); MONO # 0.5 K/uL (0.0-0.8); MONO % 4.5 % (0.0-10.0); NEUT # 6.3 K/uL (1.8-7.0); NEUT % 61.4 % (50.0-75.0); RBC 3.92 Mil/uL (3.80-5.20); RED CELL DISTRIBUTION WIDTH 17.2 % (11.5-14.5); WHITE BLOOD COUNT 10.2 K/uL (4.8-10.8)
--- NOTE | 2019-02-22 09:17 | CP.PCM.CON ---
<Shannon CurryMilvia - Last Filed: 02/22/19 16:46> History of Present Illness - History of Present Illness History of Present Illness: Consult note for Dr. Merrill Patient is a 58 year old female with aPMHx of HTN, arrhythmia, COPD, hypercholesterolemia, and sleep apnea who was sent to [facility] by Dr. Merrill for worsening shortness of breath and chest discomfort. She has been expereicening chest pain for 2-3 days, describes it as pressure-like, and is located in both the right and left side. She also has worsening SOB at rest and with exertion for the last 3 months. She also complains of increased swelling and pain in her lower extremities. She says she uses her cpap machine, which recently broke, and 3 pillows to prop herself up so that she can sleep at night; in addition to this, she mentions that she has been waking up in the middle of the night coughing. She rates her current chest discomfort as being a 7/10 and that she continues to have shortness of breath. She currently denies fevers, chills, dizziness, changes in vision, palpitations, nausea, vomiting, diarrhea, constipation, dysuria, and weakness in her extremities. She admits to having headaches, a dry cough, wheezing, and pain in her arms and legs bilaterally. PMD: Dr. Willis Cardio: Dr. Merrill Pulm: Dr. Choi PMHx: SLE, RA, HTN, CHF, COPD, depression/anxiety, DM, HLD Med: Breo-Ellipta 200-25 INH 1 puff daily, Digoxin 125mg po daily, Duloxtine 90mg po daily, hydroxychloroquine 200mg po daily, methotrexate 7.5mg po q7d, Calcium/Vit D po BID, Prednisone 10mg po daily, Crestor 10mg po HS, trazodone 100mg po daily, Ventolin q6 prn PSxHx: IVC filter, tonsillectomy, , cholecystectomy. L chest Portacath -> switched to R chest Portacath 1 week ago FamHx: mom DM, asthma, arthritis, atherosclerosis. dad , cirrhosis SocHx: 3cigs/day x 28 years, social wine, former crack cocaine. on disability All: Dilaudid, Demerol - Code Blue Review of Systems - Constitutional Constitutional: absent: Chills, Fever, Headache, Weakness - EENT Eyes: absent: Change in Vision Ears: absent: Dizziness - Cardiovascular Cardiovascular: Chest Pain, Dyspnea, Dyspnea on Exertion, Edema, Leg Edema, Palpitations - Respiratory Respiratory: Cough, Dyspnea, Dyspnea on Exertion, Wheezing. absent: Pain with Coughing - Gastrointestinal Gastrointestinal: absent: Abdominal Pain, Constipation, Diarrhea, Nausea, Vomiting - Genitourinary Genitourinary: absent: Dysuria - Musculoskeletal Musculoskeletal: Arthralgias (chronic secondaryto lupus/RA) - Neurological Neurological: absent: Dizziness, Headaches, Loss of Vision, Weakness - Endocrine Endocrine: Palpitations Past Patient History - Infectious Disease Hx of Infectious Diseases: None - Past Medical History & Family History Past Medical History?: Yes - Past Social History Smoking Status: Former Smoker Alcohol: Social Drugs: Denies Home Situation {Lives}: With Family - CARDIAC Hx Cardia Arrhythmia: Yes Hx Congestive Heart Failure: Yes Hx Hypercholesterolemia: Yes Hx Hypertension: Yes Hx Peripheral Edema: Yes (no longer) - PULMONARY Hx Asthma: Yes Hx Chronic Obstructive Pulmonary Disease (COPD): Yes Hx Emphysema: Yes Hx Sleep Apnea: Yes (c pap) - HEENT Hx HEENT Problems: No - RENAL Hx Chronic Kidney Disease: No - ENDOCRINE/METABOLIC Hx Endocrine Disorders: Yes Hx Diabetes Mellitus Type 1: Yes Hx Systemic Lupus Erythematosus: Yes - HEMATOLOGICAL/ONCOLOGICAL Hx Anemia: Yes - INTEGUMENTARY Hx Dermatological Problems: No - MUSCULOSKELETAL/RHEUMATOLOGICAL Hx Arthritis: Yes Hx Osteoporosis: Yes Hx Rheumatoid Arthritis: Yes - GASTROINTESTINAL Hx Gall Bladder Disease: Yes - GENITOURINARY/GYNECOLOGICAL Hx Sexually Transmitted Disorders: No - PSYCHIATRIC Hx Anxiety: Yes Hx Bipolar Disorder: Yes Hx Depression: Yes Hx Substance Use: No - SURGICAL HISTORY Hx Cholecystectomy: Yes Hx Tonsillectomy: Yes - ANESTHESIA Hx Anesthesia: Yes Hx Anesthesia Reactions: No Hx Malignant Hyperthermia: No Meds Allergies/Adverse Reactions: Allergies Allergy/AdvReac Type Severity Reaction Status Date / Time hydromorphone HCl Allergy Severe ANAPHYLAXIS Verified 10/25/18 14:30 [From Dilaudid] meperidine HCl [From Demerol] Allergy Severe ANAPHYLAXIS Verified 10/25/18 14:30 - Medications Medications: Current Medications Acetaminophen/Codeine Phosphate (Tylenol/Codeine 300 Mg/30 Mg) 1 ea PO Q6 PRN PRN Reason: Pain, moderate (4-7) Albuterol/Ipratropium (Duoneb 3 Mg/0.5 Mg (3 Ml) Ud) 1 ml INH RQ4 PRN PRN Reason: Shortness of Breath Alprazolam (Xanax) 1 mg PO HS PRN PRN Reason: Anxiety Aspirin (Ecotrin) 81 mg PO DAILY [facility] Calcium/Vitamin D (Oyster Shell Calcium/Vitamin D 500 Mg-200 Iu) 1 tab PO BID [facility] Digoxin (Digoxin) 0.125 mg PO DAILY@1800 [facility] Duloxetine HCl (Cymbalta) 90 mg PO HS [facility] Last Admin: 02/21/19 22:32 Dose: 90 mg Folic Acid (Folic Acid) 1 mg PO DAILY [facility] Hydroxychloroquine Sulfate (Plaquenil) 200 mg PO BID [facility]; Protocol Last Admin: 02/21/19 22:32 Dose: 200 mg Methotrexate (Methotrexate) 7.5 mg PO QWK [facility] Methylprednisolone (Solu-Medrol) 40 mg IVP DAILY [facility] Morphine Sulfate (Morphine) 1 mg IVP Q4 PRN PRN Reason: Pain, moderate (4-7) Last Admin: 02/22/19 06:43 Dose: 1 mg Rosuvastatin Calcium (Crestor) 10 mg PO [facility] Last Admin: 02/21/19 22:33 Dose: 10 mg Trazodone HCl (Desyrel) 100 mg PO [facility] Last Admin: 02/21/19 22:32 Dose: 100 mg Physical Exam - Head Exam Head Exam: ATRAUMATIC, NORMAL INSPECTION - Eye Exam Eye Exam: EOMI, Normal appearance - ENT Exam ENT Exam: Mucous Membranes Moist - Respiratory Exam Respiratory Exam: Decreased Breath Sounds, Prolonged Expiratory Phase, Wheezes. absent: Clear to Auscultation Bilateral - Cardiovascular Exam Cardiovascular Exam: REGULAR RHYTHM, +S1, +S2 - GI/Abdominal Exam GI & Abdominal Exam: Normal Bowel Sounds, Soft. absent: Distended, Firm, Tenderness Additional comments: obese - Extremities Exam Extremities exam: Positive for: pedal edema (1+ b/l), pedal pulses present - Neurological Exam Neurological exam: Alert, Oriented x3 - Psychiatric Exam Psychiatric exam: Normal Affect, Normal Mood - Skin Skin Exam: Dry, Normal Color, Warm Results - Vital Signs Recent Vital Signs: Last Vital Signs Temp 97.8 F 02/21/19 23:15 Pulse 74 02/22/19 06:35 Resp 20 02/21/19 23:15 BP 112/64 02/22/19 06:35 Pulse Ox 97 02/22/19 06:35 - Labs Result Diagrams: 02/22/19 07:29 02/22/19 07:29 Labs: Laboratory Results - last 24 hr 02/21/19 02/21/19 02/22/19 17:42 17:42 07:29 WBC 11.3 H 10.2 RBC 3.99 3.92 Hgb 10.6 L D 10.6 L Hct 33.0 L 32.6 L MCV 82.7 83.1 MCH 26.6 L 27.1 MCHC 32.2 L 32.6 L RDW 17.4 H 17.2 H Plt Count 244 260 MPV 7.1 L 7.7 Neut % (Auto) 70.6 61.4 Lymph % (Auto) 22.6 31.6 [place] % (Auto) 4.3 4.5 Eos % (Auto) 1.9 1.8 Baso % (Auto) 0.6 0.7 Neut # (Auto) 8.0 H 6.3 Lymph # (Auto) 2.6 3.2 [place] # (Auto) 0.5 0.5 Eos # (Auto) 0.2 0.2 Baso # (Auto) 0.1 0.1 Sodium 139 Potassium 4.0 Chloride 103 Carbon Dioxide 31 H Anion Gap 9 L BUN 20 H Creatinine 0.9 Est GFR ( Amer) > 60 Est GFR (Non-Af Amer) > 60 Random Glucose 219 H D Calcium 8.7 Total Bilirubin 0.2 AST 33 ALT 28 Alkaline Phosphatase 69 Troponin I < 0.0120 NT-Pro-B Natriuret Pep 91.3 Total Protein 6.4 Albumin 3.4 L Globulin 3.0 Albumin/Globulin Ratio 1.1 Assessment & Plan - Assessment and Plan (Free Text) Plan: 58 year old female with aPMHx of HTN, arrhythmia, COPD, hypercholesterolemia, and sleep apnea who was sent to [facility] by Dr. Merrill for worsening shortness of breath and chest discomfort. Chest Pain - EKG: NRS@70bpm - Troponin negative - BNP: 91.3 - Echo (01/11/19): poor echo window, normal LV wall thickness/function/wall motion. LVEF 62.8%. No vegetations. - Continue digoxin 0.125mg PO daily, ASA 81mg PO daily, Crestor 10mg PO HS - Considered stress test, however, patient cannot tolerate exercise or lexiscan (due wheezing/copd and increased risk for bronchospasm). *Scheduled for cardiac cath tomorrow morning at 9am, NPO after midnight CHF - BNP: 91.3 - Continue digoxin 0.125mg PO daily, ASA 81mg PO daily, Crestor 10mg PO HS COPD exacerbation - Carbonator on case, Dr. Choi - Continue management per primary team and digester hand. Case discussed with Dr. Garfield Smith, PGY2 <Otilio Merrill - Last Filed: 02/22/19 20:10> Meds - Medications Medications: Current Medications Acetaminophen/Codeine Phosphate (Tylenol/Codeine 300 Mg/30 Mg) 1 ea PO Q6 PRN PRN Reason: Pain, moderate (4-7) Albuterol/Ipratropium (Duoneb 3 Mg/0.5 Mg (3 Ml) Ud) 1 ml INH RQ4 PRN PRN Reason: Shortness of Breath Alprazolam (Xanax) 1 mg PO HS PRN PRN Reason: Anxiety Aspirin (Ecotrin) 81 mg PO DAILY [facility] Last Admin: 02/22/19 09:28 Dose: 81 mg Calcium/Vitamin D (Oyster Shell Calcium/Vitamin D 500 Mg-200 Iu) 1 tab PO BID [facility] Last Admin: 02/22/19 17:30 Dose: 1 tab Digoxin (Digoxin) 0.125 mg PO DAILY@1800 [facility] Last Admin: 02/22/19 17:30 Dose: 0.125 mg Duloxetine HCl (Cymbalta) 90 mg PO HS [facility] Last Admin: 02/21/19 22:32 Dose: 90 mg Folic Acid (Folic Acid) 1 mg PO DAILY [facility] Last Admin: 02/22/19 09:28 Dose: 1 mg Heparin Sodium (Porcine) (Heparin) 5,000 units SC Q12 [facility] Last Admin: 02/22/19 10:26 Dose: 5,000 units Hydroxychloroquine Sulfate (Plaquenil) 200 mg PO BID [facility]; Protocol Last Admin: 02/22/19 17:30 Dose: 200 mg Ketorolac Tromethamine (Toradol) 15 mg IVP Q6 PRN PRN Reason: Pain, moderate (4-7) Last Admin: 04/18/19 18:43 Dose: 15 mg Methotrexate (Methotrexate) 7.5 mg PO QWK [facility] Methylprednisolone (Solu-Medrol) 40 mg IVP BID [facility] Last Admin: 02/22/19 17:31 Dose: 40 mg Morphine Sulfate (Morphine) 1 mg IVP Q4 PRN PRN Reason: Pain, moderate (4-7) Last Admin: 02/22/19 14:24 Dose: 1 mg Rosuvastatin Calcium (Crestor) 10 mg PO HS [facility] Last Admin: 02/21/19 22:33 Dose: 10 mg Trazodone HCl (Desyrel) 100 mg PO HS [facility] Last Admin: 02/21/19 22:32 Dose: 100 mg Results - Vital Signs Recent Vital Signs: Last Vital Signs Temp 98.4 F 02/22/19 15:53 Pulse 82 02/22/19 18:00 Resp 20 02/22/19 15:53 BP 144/80 02/22/19 15:53 Pulse Ox 94 L 02/22/19 15:53 - Labs Result Diagrams: 02/22/19 07:29 02/22/19 07:29 Labs: Laboratory Results - last 24 hr 02/22/19 02/22/19 07:29 07:29 WBC 10.2 RBC 3.92 Hgb 10.6 L Hct 32.6 L MCV 83.1 MCH 27.1 MCHC 32.6 L RDW 17.2 H Plt Count 260 MPV 7.7 Neut % (Auto) 61.4 Lymph % (Auto) 31.6 [place] % (Auto) 4.5 Eos % (Auto) 1.8 Baso % (Auto) 0.7 Neut # (Auto) 6.3 Lymph # (Auto) 3.2 [place] # (Auto) 0.5 Eos # (Auto) 0.2 Baso # (Auto) 0.1 Sodium 139 Potassium 4.0 Chloride 105 Carbon Dioxide 27 Anion Gap 11 BUN 21 H Creatinine 0.8 Est GFR ( Amer) > 60 Est GFR (Non-Af Amer) > 60 Random Glucose 153 H D Calcium 8.8 Magnesium 2.2 Total Bilirubin 0.3 AST 34 ALT 22 Alkaline Phosphatase 68 Total Protein 6.5 Albumin 3.5 Globulin 3.0 Albumin/Globulin Ratio 1.2 Assessment & Plan - Assessment and Plan (Free Text) Plan: Patient seen and evaluated personally by me. Plan of care d/w the ophthalmic medical assistant and as documented
--- NOTE | 2019-02-22 09:19 | CP.PCM.PN ---
<Ciro Ivy - Last Filed: 02/22/19 19:30> Subjective - Date & Time of Evaluation Date of Evaluation: 02/22/19 Time of Evaluation: 09:00 - Subjective Subjective: PGY-[address] Breaux Patient is seen and examined at bedside. Patient continues to have shortness of breath and chest pain, worsens when patient is walking, admits to dry cough. Patient admits to generalized body aches, both arm and legs. Denies fever, chills, nausea, vomiting, diarrhea, constipation, urinary symptoms. Objective - Vital Signs/Intake and Output Vital Signs (last 24 hours): Temp Pulse Resp BP Pulse Ox 97.8 F 74 20 112/64 97 02/21/19 23:15 02/22/19 06:35 02/21/19 23:15 02/22/19 06:35 02/22/19 06:35 Intake and Output: 02/22/19 02/22/19 06:59 18:59 Intake Total 100 Balance 100 - Medications Medications: Current Medications Acetaminophen/Codeine Phosphate (Tylenol/Codeine 300 Mg/30 Mg) 1 ea PO Q6 PRN PRN Reason: Pain, moderate (4-7) Albuterol/Ipratropium (Duoneb 3 Mg/0.5 Mg (3 Ml) Ud) 1 ml INH RQ4 PRN PRN Reason: Shortness of Breath Alprazolam (Xanax) 1 mg PO HS PRN PRN Reason: Anxiety Aspirin (Ecotrin) 81 mg PO DAILY [facility] Calcium/Vitamin D (Oyster Shell Calcium/Vitamin D 500 Mg-200 Iu) 1 tab PO BID [facility] Digoxin (Digoxin) 0.125 mg PO DAILY@1800 [facility] Duloxetine HCl (Cymbalta) 90 mg PO HS [facility] Last Admin: 02/21/19 22:32 Dose: 90 mg Folic Acid (Folic Acid) 1 mg PO DAILY [facility] Hydroxychloroquine Sulfate (Plaquenil) 200 mg PO BID [facility]; Protocol Last Admin: 02/21/19 22:32 Dose: 200 mg Methotrexate (Methotrexate) 7.5 mg PO QWK [facility] Methylprednisolone (Solu-Medrol) 40 mg IVP DAILY [facility] Morphine Sulfate (Morphine) 1 mg IVP Q4 PRN PRN Reason: Pain, moderate (4-7) Last Admin: 02/22/19 06:43 Dose: 1 mg Rosuvastatin Calcium (Crestor) [address] [facility] Last Admin: 02/21/19 22:33 Dose: 10 mg Trazodone HCl (Desyrel) [address] [facility] Last Admin: 02/21/19 22:32 Dose: 100 mg - Labs Labs: 02/22/19 07:29 02/21/19 17:42 - Constitutional Appears: Non-toxic, No Acute Distress - Head Exam Head Exam: ATRAUMATIC, NORMOCEPHALIC - Eye Exam Eye Exam: EOMI, Normal appearance - ENT Exam ENT Exam: Mucous Membranes Moist, Normal Exam - Neck Exam Neck Exam: Full ROM - Respiratory Exam Respiratory Exam: Decreased Breath Sounds (bilaterally ), Wheezes. absent: Rales, Rhonchi Additional comments: wheezing mostly left lung upper lobes - Cardiovascular Exam Cardiovascular Exam: REGULAR RHYTHM, +S1, +S2 - GI/Abdominal Exam GI & Abdominal Exam: Soft, Normal Bowel Sounds. absent: Distended, Tenderness - Extremities Exam Extremities Exam: Full ROM, Normal Inspection, Pedal Edema. absent: Tenderness Additional comments: B/L lower extremity 1+ pitting edema hand deformities b/l - Back Exam Back Exam: NORMAL INSPECTION - Neurological Exam Neurological Exam: Alert, Awake, Oriented x3. absent: Normal Gait - Psychiatric Exam Psychiatric exam: Normal Affect, Normal Mood - Skin Skin Exam: Dry, Normal Color, Warm Assessment and Plan - Assessment and Plan (Free Text) Assessment: 58yo obese female PMH SLE, RA, HTN, CHF, COPD, depression/anxiety, DM, HLD sent in by her cyber ops planner, Dr. Merrill, for evaluation COPD exarcerbation vs CHF exarcerbation Plan: Shortness of Breath/Chest pain COPD vs. CHF exacerbation On telemetry CXR (02/21): Right sided mediport extends to SVC. B/l hilar prominence, biapical pleural thickening, interstitial prominence may represent infection or edema. Trop neg, BNP 91.3 Echo (01/11/19): poor echo window, normal LV wall thickness/function/wall motion. LVEF 62.8%. No vegetations. - home Digoxin 0.125mg po daily - Solumedol 40 IVP BID - Duonebs INH rQ4 prn - O2 via NC prn - Pulm consulted: Dr. Choi - help appreciated - Cardio consulted: Dr. Merrill - Considered stress test, however, patient cannot tolerate exercise or lexiscan (due wheezing/copd and increased risk for bronchospasm). going for cardiac cath tomorrow morning, NPO after midnight SLE RA - home Prednisone 10mg po daily -> Solumedrol 40 IVP daily - home Hydroxychloroquine 200mg po BID - home Methotrexate 7.5mg po q7d - Morphine 1mg IVP q4 prn - toradol 15 mg IVP Q6H PRN - Tylenol 3 po q6 prn Hyperlipidemia - home Crestor 10mg po HS Anxiety/Depression - home Xanax 1mg po HS prn - home Cymbalta 90mg po HS - home Trazodone 100mg po HS PPx - DVT: ASA 81mg po daily, SCDs, Heparin 5000 SC Q12 - Diet: HHD 2g Na, Low Carb - home Calcium/VitD 1 tab po BID - home Folic Acid 1mg po daily - PT/OT evaluation Dispo: patient is going for cardiac cath tomorrow, npo after midnight Plan discussed with Dr Namita Ivy, PGY-1 <Miguel Ángel Breaux - Last Filed: 02/23/19 07:24> Objective - Vital Signs/Intake and Output Vital Signs (last 24 hours): Temp Pulse Resp BP Pulse Ox 99.3 F 83 20 131/77 96 02/22/19 23:15 02/23/19 05:09 02/22/19 23:15 02/22/19 23:15 02/22/19 23:15 Intake and Output: 02/23/19 02/23/19 06:59 18:59 Intake Total 120 Balance 120 - Medications Medications: Current Medications Acetaminophen/Codeine Phosphate (Tylenol/Codeine 300 Mg/30 Mg) 1 ea PO Q6 PRN PRN Reason: Pain, moderate (4-7) Albuterol/Ipratropium (Duoneb 3 Mg/0.5 Mg (3 Ml) Ud) 1 ml INH RQ4 PRN PRN Reason: Shortness of Breath Alprazolam (Xanax) 1 mg PO HS PRN PRN Reason: Anxiety Last Admin: 02/22/19 21:48 Dose: 1 mg Aspirin (Ecotrin) 81 mg PO DAILY [facility] Last Admin: 02/22/19 09:28 Dose: 81 mg Calcium/Vitamin D (Oyster Shell Calcium/Vitamin D 500 Mg-200 Iu) 1 tab PO BID [facility] Last Admin: 02/22/19 17:30 Dose: 1 tab Digoxin (Digoxin) 0.125 mg PO DAILY@1800 [facility] Last Admin: 02/22/19 17:30 Dose: 0.125 mg Duloxetine HCl (Cymbalta) [address] [facility] Last Admin: 02/22/19 21:48 Dose: 90 mg Folic Acid (Folic Acid) 1 mg PO DAILY [facility] Last Admin: 02/22/19 09:28 Dose: 1 mg Heparin Sodium (Porcine) (Heparin) 5,000 units SC Q12 [facility] Last Admin: 02/22/19 21:48 Dose: 5,000 units Hydroxychloroquine Sulfate (Plaquenil) 200 mg PO BID [facility]; Protocol Last Admin: 02/22/19 17:30 Dose: 200 mg Ketorolac Tromethamine (Toradol) 15 mg IVP Q6 PRN PRN Reason: Pain, moderate (4-7) Last Admin: 02/22/19 18:43 Dose: 15 mg Methotrexate (Methotrexate) 7.5 mg PO QWK [facility] Methylprednisolone (Solu-Medrol) 40 mg IVP BID [facility] Last Admin: 02/22/19 17:31 Dose: 40 mg Morphine Sulfate (Morphine) 1 mg IVP Q4 PRN PRN Reason: Pain, moderate (4-7) Last Admin: 02/23/19 03:39 Dose: 1 mg Rosuvastatin Calcium (Crestor) [address] [facility] Last Admin: 02/22/19 21:48 Dose: 10 mg Trazodone HCl (Desyrel) [address] [facility] Last Admin: 02/22/19 21:48 Dose: 100 mg - Labs Labs: 02/23/19 06:36 02/22/19 07:29 Attending/Attestation - Attestation I have personally seen and examined this patient.: Yes I have fully participated in the care of the patient.: Yes I have reviewed all pertinent clinical information, including history, physical exam and plan: Yes Notes (Text): 02/23/19 07:14 Medical attending: Patient was seen and examined by me. Agree with the above note by the resident The patient explained that her breathing still was not improving much than before. On exam she has difficulty walking she says and this is secondary to both chronic pain as well as her poor breathing. We are going to add toradol IV as well to see if this helps (she is already on morphine) She has gained a lot of weight recently she explains With reguards to her history of Lupus she is on Plaquenil as well as Currently we increased her solumedrol to IV BID She has had an echo in the recent past as well. Later I learned that there are plans for a stress test for her as well. Miguel Ángel Breaux
[2019-02-22] MEDS: Calcium-Vit D 500 mg-200 Units Tab UD PO SCH ×2 (09:29→17:30)
[2019-02-22] MEDS ORDERED: MethylPREDNISolone 40 mg Vial IVP SCH (10:00)
[2019-02-22] MEDS ORDERED: Tiotropium 18 mcg Cap For Inhalation IH SCH (10:00)
--- NOTE | 2019-02-22 10:13 | RAD ---
HISTORY: chest pain COMPARISON: Chest x-ray performed 02/16/19 TECHNIQUE: Chest PA and lateral, 2 views FINDINGS: Examination limited by habitus. Right-sided MediPort extends to the SVC. LUNGS: Bilateral hilar prominence. Biapical pleural thickening. Interstitial prominence may represent infection or edema. Please note that chest x-ray has limited sensitivity for the detection of pulmonary masses. PLEURA: No significant pleural effusion identified. No definite pneumothorax . CARDIOVASCULAR: Cardiomegaly. Atherosclerotic calcifications present. OSSEOUS STRUCTURES: Degenerative changes. VISUALIZED UPPER ABDOMEN: Unremarkable. OTHER FINDINGS: None. IMPRESSION: Right-sided MediPort extends to the SVC. Bilateral hilar prominence. Biapical pleural thickening. Interstitial prominence may represent infection or edema. Cardiomegaly.
--- NOTE | 2019-02-22 10:29 | CP.PCM.CON ---
<Luis Wiledr - Last Filed: 02/22/19 10:20> History of Present Illness - History of Present Illness History of Present Illness: HPI: Ms. Lee is an obese 58 year old female with a PMH of SLE and RA for 12 years, HTN, COPD, depression/anxiety, DM and HLD. She was sent in by her audit specialist, Dr. Merrill, for COPD exacerbation evaluation. She states that her chronic shortness of breath has been worsing for 1.5 months. She states that she can't walk more than 3 blocks without stopping. She was able to walk 8 blocks before stopping. She says SOB is associated with a nonproductive cough. She complains of increased swelling in her hands and legs, and intermittent chest pain. She denies L arm pain, stomach pain, and jaw pain. She denies having pet at home. PMH: SLE, RA, HTN, CHF, COPD, depression/anxiety, DM, HLD All: Dilaudid, Demerol - Code Blue PSxHx: IVC filter, tonsillectomy, , cholecystectomy. FamHx: mother has DM, asthma, arthritis, atherosclerosis. She is currently admitted to [facility] also. Father is 2/2 cirrhosis SocHx: 3cigs/day x 28 years, drinks wine socially, former crack cocaine user. She is on disability. PMD: Dr. Willis Cardio: Dr. Merrill Pulm: Dr. Choi Rheum: Dr. Matos Review of Systems - Review of Systems All systems: reviewed and no additional remarkable complaints except Review of Systems: see HPI Past Patient History - Infectious Disease Hx of Infectious Diseases: None - Past Medical History & Family History Past Medical History?: Yes - Past Social History Smoking Status: Former Smoker Alcohol: Social Drugs: Denies Home Situation {Lives}: With Family - CARDIAC Hx Cardia Arrhythmia: Yes Hx Congestive Heart Failure: Yes Hx Hypercholesterolemia: Yes Hx Hypertension: Yes Hx Peripheral Edema: Yes (no longer) - PULMONARY Hx Asthma: Yes Hx Chronic Obstructive Pulmonary Disease (COPD): Yes Hx Emphysema: Yes Hx Sleep Apnea: Yes (c pap) - HEENT Hx HEENT Problems: No - RENAL Hx Chronic Kidney Disease: No - ENDOCRINE/METABOLIC Hx Endocrine Disorders: Yes Hx Diabetes Mellitus Type 1: Yes Hx Systemic Lupus Erythematosus: Yes - HEMATOLOGICAL/ONCOLOGICAL Hx Anemia: Yes - INTEGUMENTARY Hx Dermatological Problems: No - MUSCULOSKELETAL/RHEUMATOLOGICAL Hx Arthritis: Yes Hx Osteoporosis: Yes Hx Rheumatoid Arthritis: Yes - GASTROINTESTINAL Hx Gall Bladder Disease: Yes - GENITOURINARY/GYNECOLOGICAL Hx Sexually Transmitted Disorders: No - PSYCHIATRIC Hx Anxiety: Yes Hx Bipolar Disorder: Yes Hx Depression: Yes Hx Substance Use: No - SURGICAL HISTORY Hx Cholecystectomy: Yes Hx Tonsillectomy: Yes - ANESTHESIA Hx Anesthesia: Yes Hx Anesthesia Reactions: No Hx Malignant Hyperthermia: No Meds Allergies/Adverse Reactions: Allergies Allergy/AdvReac Type Severity Reaction Status Date / Time hydromorphone HCl Allergy Severe ANAPHYLAXIS Verified 10/25/18 14:30 [From Dilaudid] meperidine HCl [From Demerol] Allergy Severe ANAPHYLAXIS Verified 10/25/18 14:30 - Medications Medications: Current Medications Acetaminophen/Codeine Phosphate (Tylenol/Codeine 300 Mg/30 Mg) 1 ea PO Q6 PRN PRN Reason: Pain, moderate (4-7) Albuterol/Ipratropium (Duoneb 3 Mg/0.5 Mg (3 Ml) Ud) 1 ml INH RQ4 PRN PRN Reason: Shortness of Breath Alprazolam (Xanax) 1 mg PO HS PRN PRN Reason: Anxiety Aspirin (Ecotrin) 81 mg PO DAILY [facility] Last Admin: 02/22/19 09:28 Dose: 81 mg Calcium/Vitamin D (Oyster Shell Calcium/Vitamin D 500 Mg-200 Iu) 1 tab PO BID [facility] Last Admin: 02/22/19 09:29 Dose: 1 tab Digoxin (Digoxin) 0.125 mg PO DAILY@1800 [facility] Duloxetine HCl (Cymbalta) 90 mg PO HS [facility] Last Admin: 02/21/19 22:32 Dose: 90 mg Folic Acid (Folic Acid) 1 mg PO DAILY [facility] Last Admin: 02/22/19 09:28 Dose: 1 mg Heparin Sodium (Porcine) (Heparin) 5,000 units SC Q12 [facility] Hydroxychloroquine Sulfate (Plaquenil) 200 mg PO BID [facility]; Protocol Last Admin: 02/22/19 09:29 Dose: 200 mg Methotrexate (Methotrexate) 7.5 mg PO QWK [facility] Methylprednisolone (Solu-Medrol) 40 mg IVP DAILY [facility] Last Admin: 02/22/19 09:28 Dose: 40 mg Morphine Sulfate (Morphine) 1 mg IVP Q4 PRN PRN Reason: Pain, moderate (4-7) Last Admin: 02/22/19 06:43 Dose: 1 mg Rosuvastatin Calcium (Crestor) 10 mg PO HS [facility] Last Admin: 02/21/19 22:33 Dose: 10 mg Trazodone HCl (Desyrel) 100 mg PO HS [facility] Last Admin: 02/21/19 22:32 Dose: 100 mg Physical Exam - Constitutional Appears: Non-toxic, No Acute Distress, Chronically Ill - Head Exam Head Exam: NORMAL INSPECTION - Eye Exam Eye Exam: Normal appearance - ENT Exam ENT Exam: Mucous Membranes Moist - Respiratory Exam Respiratory Exam: Decreased Breath Sounds, NORMAL BREATHING PATTERN - Cardiovascular Exam Cardiovascular Exam: REGULAR RHYTHM, +S1, +S2 - GI/Abdominal Exam GI & Abdominal Exam: Normal Bowel Sounds, Soft. absent: Guarding, Rebound, Rigid - Rectal Exam Rectal Exam: Deferred - Extremities Exam Extremities exam: Positive for: joint swelling, pedal edema, pedal pulses presen t. Negative for: calf tenderness Additional comments: Contractures: boutoniere deformity - Neurological Exam Neurological exam: CN II-XII Intact, Oriented x3 - Psychiatric Exam Psychiatric exam: Normal Mood - Skin Skin Exam: Intact, Normal Color Results - Vital Signs Recent Vital Signs: Last Vital Signs Temp 97.8 F 02/21/19 23:15 Pulse 74 02/22/19 06:35 Resp 20 02/21/19 23:15 BP 112/64 02/22/19 06:35 Pulse Ox 97 02/22/19 06:35 - Labs Result Diagrams: 02/22/19 07:29 02/21/19 17:42 Labs: Laboratory Results - last 24 hr 02/21/19 02/21/19 02/22/19 17:42 17:42 07:29 WBC 11.3 H 10.2 RBC 3.99 3.92 Hgb 10.6 L D 10.6 L Hct 33.0 L 32.6 L MCV 82.7 83.1 MCH 26.6 L 27.1 MCHC 32.2 L 32.6 L RDW 17.4 H 17.2 H Plt Count 244 260 MPV 7.1 L 7.7 Neut % (Auto) 70.6 61.4 Lymph % (Auto) 22.6 31.6 [place] % (Auto) 4.3 4.5 Eos % (Auto) 1.9 1.8 Baso % (Auto) 0.6 0.7 Neut # (Auto) 8.0 H 6.3 Lymph # (Auto) 2.6 3.2 [place] # (Auto) 0.5 0.5 Eos # (Auto) 0.2 0.2 Baso # (Auto) 0.1 0.1 Sodium 139 Potassium 4.0 Chloride 103 Carbon Dioxide 31 H Anion Gap 9 L BUN 20 H Creatinine 0.9 Est GFR ( Amer) > 60 Est GFR (Non-Af Amer) > 60 Random Glucose 219 H D Calcium 8.7 Total Bilirubin 0.2 AST 33 ALT 28 Alkaline Phosphatase 69 Troponin I < 0.0120 NT-Pro-B Natriuret Pep 91.3 Total Protein 6.4 Albumin 3.4 L Globulin 3.0 Albumin/Globulin Ratio 1.1 Assessment & Plan - Assessment and Plan (Free Text) Assessment: 58 year old obese female with a PMH of SLE, RA, HTN, CHF, COPD, depression/anxiety, DM, HLD sent in by her audit specialist, Dr. Merrill, for evaluation of COPD exacerbation. Plan: A: Shortness of Breath COPD exacerbation Hx of RA, SLE, DM, CAD, depression P: CXR (02/21): B/l hilar prominence interstitial may represent infection or edema Trop neg, BNP 91.3 continue Duonebs INH rQ4 prn continue Solumedol 40 IVP daily continue O2 via NC prn continue Digoxin 0.125mg po daily continue Morphine 1mg IVP q4 prn steroid should help in the treatment of COPD exacerbation and in the treat of SLE and RA. Further assessment/ treatment as per primary team d/w Dr. Jimbo Wilder PGY-1 <Catracho Choi S - Last Filed: 02/22/19 17:48> Meds - Medications Medications: Current Medications Acetaminophen/Codeine Phosphate (Tylenol/Codeine 300 Mg/30 Mg) 1 ea PO Q6 PRN PRN Reason: Pain, moderate (4-7) Albuterol/Ipratropium (Duoneb 3 Mg/0.5 Mg (3 Ml) Ud) 1 ml INH RQ4 PRN PRN Reason: Shortness of Breath Alprazolam (Xanax) 1 mg PO HS PRN PRN Reason: Anxiety Aspirin (Ecotrin) 81 mg PO DAILY [facility] Last Admin: 02/22/19 09:28 Dose: 81 mg Calcium/Vitamin D (Oyster Shell Calcium/Vitamin D 500 Mg-200 Iu) 1 tab PO BID [facility] Last Admin: 02/22/19 17:30 Dose: 1 tab Digoxin (Digoxin) 0.125 mg PO DAILY@1800 [facility] Last Admin: 02/22/19 17:30 Dose: 0.125 mg Duloxetine HCl (Cymbalta) 90 mg PO [facility] Last Admin: 02/21/19 22:32 Dose: 90 mg Folic Acid (Folic Acid) 1 mg PO DAILY [facility] Last Admin: 02/22/19 09:28 Dose: 1 mg Heparin Sodium (Porcine) (Heparin) 5,000 units SC Q12 [facility] Last Admin: 02/22/19 10:26 Dose: 5,000 units Hydroxychloroquine Sulfate (Plaquenil) 200 mg PO BID [facility]; Protocol Last Admin: 02/22/19 17:30 Dose: 200 mg Ketorolac Tromethamine (Toradol) 15 mg IVP Q6 PRN PRN Reason: Pain, moderate (4-7) Last Admin: 02/22/19 12:41 Dose: 15 mg Methotrexate (Methotrexate) 7.5 mg PO QWK [facility] Methylprednisolone (Solu-Medrol) 40 mg IVP BID [facility] Last Admin: 02/22/19 17:31 Dose: 40 mg Morphine Sulfate (Morphine) 1 mg IVP Q4 PRN PRN Reason: Pain, moderate (4-7) Last Admin: 02/22/19 14:24 Dose: 1 mg Rosuvastatin Calcium (Crestor) 10 mg PO [facility] Last Admin: 02/21/19 22:33 Dose: 10 mg Trazodone HCl (Desyrel) 100 mg PO [facility] Last Admin: 02/21/19 22:32 Dose: 100 mg Results - Vital Signs Recent Vital Signs: Last Vital Signs Temp 98.4 F 02/22/19 15:53 Pulse 83 02/22/19 15:53 Resp 20 02/22/19 15:53 BP 144/80 02/22/19 15:53 Pulse Ox 94 L 02/22/19 15:53 - Labs Result Diagrams: 02/22/19 07:29 02/22/19 07:29 Labs: Laboratory Results - last 24 hr 02/21/19 02/21/19 02/22/19 17:42 17:42 07:29 WBC 11.3 H 10.2 RBC 3.99 3.92 Hgb 10.6 L D 10.6 L Hct 33.0 L 32.6 L MCV 82.7 83.1 MCH 26.6 L 27.1 MCHC 32.2 L 32.6 L RDW 17.4 H 17.2 H Plt Count 244 260 MPV 7.1 L 7.7 Neut % (Auto) 70.6 61.4 Lymph % (Auto) 22.6 31.6 [place] % (Auto) 4.3 4.5 Eos % (Auto) 1.9 1.8 Baso % (Auto) 0.6 0.7 Neut # (Auto) 8.0 H 6.3 Lymph # (Auto) 2.6 3.2 [place] # (Auto) 0.5 0.5 Eos # (Auto) 0.2 0.2 Baso # (Auto) 0.1 0.1 Sodium 139 Potassium 4.0 Chloride 103 Carbon Dioxide 31 H Anion Gap 9 L BUN 20 H Creatinine 0.9 Est GFR ( Amer) > 60 Est GFR (Non-Af Amer) > 60 Random Glucose 219 H D Calcium 8.7 Magnesium Total Bilirubin 0.2 AST 33 ALT 28 Alkaline Phosphatase 69 Troponin I < 0.0120 NT-Pro-B Natriuret Pep 91.3 Total Protein 6.4 Albumin 3.4 L Globulin 3.0 Albumin/Globulin Ratio 1.1 02/22/19 07:29 WBC RBC Hgb Hct MCV MCH MCHC RDW Plt Count MPV Neut % (Auto) Lymph % (Auto) [place] % (Auto) Eos % (Auto) Baso % (Auto) Neut # (Auto) Lymph # (Auto) [place] # (Auto) Eos # (Auto) Baso # (Auto) Sodium 139 Potassium 4.0 Chloride 105 Carbon Dioxide 27 Anion Gap 11 BUN 21 H Creatinine 0.8 Est GFR ( Amer) > 60 Est GFR (Non-Af Amer) > 60 Random Glucose 153 H D Calcium 8.8 Magnesium 2.2 Total Bilirubin 0.3 AST 34 ALT 22 Alkaline Phosphatase 68 Troponin I NT-Pro-B Natriuret Pep Total Protein 6.5 Albumin 3.5 Globulin 3.0 Albumin/Globulin Ratio 1.2 Attending/Attestation - Attestation I have personally seen and examined this patient.: Yes I have fully participated in the care of the patient.: Yes I have reviewed all pertinent clinical information: Yes Notes (Text): 02/22/19 17:46 Patient seen and examined Chest x-ray reviewed Complaining of shortness of breath and chest pain Cardiology work-up Nebulizer treatment, steroids
[2019-02-22 10:42] LABS: ALB/GLOB RATIO 1.2 (1.0-2.1); ALBUMIN 3.5 g/dL (3.5-5.0); ALT/SGPT 22 U/L (9-52); AST/SGOT 34 U/L (14-36); BLOOD UREA NITROGEN 21 mg/dL (7-17); CALCIUM 8.8 mg/dl (8.6-10.4); GFR NON-AFRICAN AMERICAN > 60
[2019-02-22] MEDS: Digoxin 125 mcg (0.125 mg) Tab PO SCH (17:30)
[2019-02-22] MEDS: MethylPREDNISolone 40 mg Vial IVP SCH (17:31)
--- NOTE | 2019-02-22 23:50 | CARD ---
APPROVED REPORT Date of service: 02/21/2019 EKG Measurement Heart [id number] <Conclusion> Normal sinus rhythm Nonspecific ST and T wave abnormality Abnormal ECG
[2019-02-23 06:54] LABS: BASO % 0.2 % (0.0-2.0); EOS % 0.1 % (0.0-4.0); HEMOGLOBIN 10.5 g/dL (11.0-16.0); LYMPH # 1.9 K/uL (1.0-4.3); LYMPH % 13.6 % (20.0-40.0); MEAN CELL VOLUME 82.5 fL (81.0-99.0); MEAN CORPUSCULAR HGB CONC 32.8 g/dL (33.0-37.0); MEAN PLATELET VOLUME 8.1 fL (7.2-11.7); MONO # 0.5 K/uL (0.0-0.8); MONO % 3.7 % (0.0-10.0); NEUT # 11.3 K/uL (1.8-7.0); NEUT % 82.4 % (50.0-75.0); NRBC % 0.1 % (0.0-2.0); RBC 3.9 Mil/uL (3.80-5.20); RED CELL DISTRIBUTION WIDTH 16.6 % (11.5-14.5); WHITE BLOOD COUNT 13.8 K/uL (4.8-10.8)
--- NOTE | 2019-02-23 07:13 | CP.PCM.PN ---
<Ciro Ivy - Last Filed: 02/23/19 21:02> Subjective - Date & Time of Evaluation Date of Evaluation: 02/23/19 Time of Evaluation: 07:14 - Subjective Subjective: PGY-[address] Miguel Ángel Breaux service Patient is seen and examined at bedside. No acute events overnight. Patient states to continue having shortness of breath, reports improved chest pain, admits to left lower warrant pain, denies fever, chills, coughing, dizziness, chest pain, sob, n/v/d/c or urinary complaints, continues to have lower extremity swelling. Objective - Vital Signs/Intake and Output Vital Signs (last 24 hours): Temp Pulse Resp BP Pulse Ox 99.3 F 83 20 131/77 96 02/22/19 23:15 02/23/19 05:09 02/22/19 23:15 02/22/19 23:15 02/22/19 23:15 Intake and Output: 02/23/19 02/23/19 06:59 18:59 Intake Total 120 Balance 120 - Medications Medications: Current Medications Acetaminophen/Codeine Phosphate (Tylenol/Codeine 300 Mg/30 Mg) 1 ea PO Q6 PRN PRN Reason: Pain, moderate (4-7) Albuterol/Ipratropium (Duoneb 3 Mg/0.5 Mg (3 Ml) Ud) 1 ml INH RQ4 PRN PRN Reason: Shortness of Breath Alprazolam (Xanax) 1 mg PO HS PRN PRN Reason: Anxiety Last Admin: 02/22/19 21:48 Dose: 1 mg Aspirin (Ecotrin) 81 mg PO DAILY [facility] Last Admin: 02/22/19 09:28 Dose: 81 mg Calcium/Vitamin D (Oyster Shell Calcium/Vitamin D 500 Mg-200 Iu) 1 tab PO BID [facility] Last Admin: 02/22/19 17:30 Dose: 1 tab Digoxin (Digoxin) 0.125 mg PO DAILY@1800 [facility] Last Admin: 02/22/19 17:30 Dose: 0.125 mg Duloxetine HCl (Cymbalta) 90 mg PO HS [facility] Last Admin: 02/22/19 21:48 Dose: 90 mg Folic Acid (Folic Acid) 1 mg PO DAILY [facility] Last Admin: 02/22/19 09:28 Dose: 1 mg Heparin Sodium (Porcine) (Heparin) 5,000 units SC Q12 [facility] Last Admin: 02/22/19 21:48 Dose: 5,000 units Hydroxychloroquine Sulfate (Plaquenil) 200 mg PO BID [facility]; Protocol Last Admin: 02/22/19 17:30 Dose: 200 mg Ketorolac Tromethamine (Toradol) 15 mg IVP Q6 PRN PRN Reason: Pain, moderate (4-7) Last Admin: 02/22/19 18:43 Dose: 15 mg Methotrexate (Methotrexate) 7.5 mg PO QWK [facility] Methylprednisolone (Solu-Medrol) 40 mg IVP BID [facility] Last Admin: 02/22/19 17:31 Dose: 40 mg Morphine Sulfate (Morphine) 1 mg IVP Q4 PRN PRN Reason: Pain, moderate (4-7) Last Admin: 02/23/19 03:39 Dose: 1 mg Rosuvastatin Calcium (Crestor) [address] [facility] Last Admin: 02/22/19 21:48 Dose: 10 mg Trazodone HCl (Desyrel) [address] [facility] Last Admin: 02/22/19 21:48 Dose: 100 mg - Labs Labs: 02/23/19 06:36 02/22/19 07:29 - Constitutional Appears: Non-toxic, No Acute Distress - Head Exam Head Exam: ATRAUMATIC, NORMOCEPHALIC - Eye Exam Eye Exam: EOMI, Normal appearance - ENT Exam ENT Exam: Mucous Membranes Moist, Normal Exam - Respiratory Exam Respiratory Exam: Decreased Breath Sounds, NORMAL BREATHING PATTERN. absent: Rhonchi, Wheezes, Respiratory Distress - Cardiovascular Exam Cardiovascular Exam: +S1, +S2 - GI/Abdominal Exam GI & Abdominal Exam: Soft, Normal Bowel Sounds. absent: Tenderness Additional comments: obese abdomen - Extremities Exam Extremities Exam: Full ROM, Pedal Edema Additional comments: 1+ pitting edema B/l LE deformity bilateral hands consisted with RA - Back Exam Back Exam: NORMAL INSPECTION - Neurological Exam Neurological Exam: Alert, Awake, Oriented x3. absent: Normal Gait - Psychiatric Exam Psychiatric exam: Normal Affect, Normal Mood - Skin Skin Exam: Dry, Intact, Normal Color, Warm Assessment and Plan - Assessment and Plan (Free Text) Assessment: 58yo obese female PMH SLE, RA, HTN, CHF, COPD, depression/anxiety, DM, HLD sent in by her lidding machine operator, Dr. Merrill, for evaluation COPD exarcerbation vs CHF exarcerbation Plan: Shortness of Breath/Chest pain COPD vs. CHF exacerbation On telemetry CXR (02/21): Right sided mediport extends to SVC. B/l hilar prominence, biapical pleural thickening, interstitial prominence may represent infection or edema. Trop neg, BNP 91.3 Echo (01/11/19): poor echo window, normal LV wall thickness/function/wall motion. LVEF 62.8%. No vegetations. - home Digoxin 0.125mg po daily - Solumedol 40 IVP BID - Duonebs INH rQ4 prn - O2 via NC prn - Pulm consulted: Dr. Choi - continue current management - Cardio consulted: Dr. Merrill - for cardiac cath today, will follow up recs SLE RA - home Prednisone 10mg po daily -> Solumedrol 40 IVP daily - home Hydroxychloroquine 200mg po BID - home Methotrexate 7.5mg po q7d - Morphine increased from 1mg to 3mg IVP q4 prn - toradol 15 mg IVP Q6H PRN - Tylenol 3 po q6 prn Hyperlipidemia - home Crestor 10mg po HS Anxiety/Depression - home Xanax 1mg po HS prn - home Cymbalta 90mg po HS - home Trazodone 100mg po HS PPx - DVT: ASA 81mg po daily, SCDs, Heparin 5000 SC Q12 - Diet: HHD 2g Na, Low Carb - home Calcium/VitD 1 tab po BID - home Folic Acid 1mg po daily - PT/OT evaluation Plan discussed with Dr Namita Ivy, PGY-1 <Miguel Ángel Breaux H - Last Filed: 02/24/19 08:18> Objective - Vital Signs/Intake and Output Vital Signs (last 24 hours): Temp Pulse Resp BP Pulse Ox 98.1 F 78 20 132/78 95 02/24/19 07:00 02/24/19 07:00 02/24/19 07:00 02/24/19 07:00 02/24/19 07:00 - Medications Medications: Current Medications Acetaminophen/Codeine Phosphate (Tylenol/Codeine 300 Mg/30 Mg) 1 ea PO Q6 PRN PRN Reason: Pain, moderate (4-7) Albuterol/Ipratropium (Duoneb 3 Mg/0.5 Mg (3 Ml) Ud) 1 ml INH RQ4 PRN PRN Reason: Shortness of Breath Alprazolam (Xanax) 1 mg PO HS PRN PRN Reason: Anxiety Last Admin: 02/22/19 21:48 Dose: 1 mg Aspirin (Ecotrin) 81 mg PO DAILY [facility] Last Admin: 02/23/19 14:50 Dose: 81 mg Calcium/Vitamin D (Oyster Shell Calcium/Vitamin D 500 Mg-200 Iu) 1 tab PO BID [facility] Last Admin: 02/23/19 18:26 Dose: 1 tab Digoxin (Digoxin) 0.125 mg PO DAILY@1800 [facility] Last Admin: 02/23/19 18:26 Dose: 0.125 mg Duloxetine HCl (Cymbalta) 90 mg PO HS [facility] Last Admin: 02/23/19 21:44 Dose: 90 mg Folic Acid (Folic Acid) 1 mg PO DAILY [facility] Last Admin: 02/23/19 14:53 Dose: Not Given Heparin Sodium (Porcine) (Heparin) 5,000 units SC Q12 [facility] Last Admin: 02/22/19 21:48 Dose: 5,000 units Hydroxychloroquine Sulfate (Plaquenil) 200 mg PO BID [facility]; Protocol Last Admin: 02/23/19 18:26 Dose: 200 mg Ketorolac Tromethamine (Toradol) 15 mg IVP Q6 PRN PRN Reason: Pain, moderate (4-7) Last Admin: 02/23/19 11:31 Dose: 15 mg Methotrexate (Methotrexate) 7.5 mg PO QWK [facility] Methylprednisolone (Solu-Medrol) 40 mg IVP BID [facility] Last Admin: 02/23/19 18:26 Dose: 40 mg Morphine Sulfate (Morphine) 3 mg IVP Q4 PRN PRN Reason: Pain, moderate (4-7) Last Admin: 02/24/19 03:46 Dose: 3 mg Rosuvastatin Calcium (Crestor) 10 mg PO HS [facility] Last Admin: 02/23/19 21:44 Dose: 10 mg Trazodone HCl (Desyrel) 100 mg PO HS [facility] Last Admin: 02/23/19 21:44 Dose: 100 mg - Labs Labs: 02/24/19 07:19 02/24/19 07:19 PT 11.5 SECONDS (9.7-12.2) 02/23/19 08:09 INR 1.1 02/23/19 08:09 APTT 30 SECONDS (21-34) 02/23/19 08:09 Attending/Attestation - Attestation I have personally seen and examined this patient.: Yes I have fully participated in the care of the patient.: Yes I have reviewed all pertinent clinical information, including history, physical exam and plan: Yes Notes (Text): 02/24/19 08:14 Medical attending: Patient was seen and examined by me with the medical center representative The patient was not in any acute distress. The patient was complaining that the morphine was not enough and asked for more. She was asking for 4mg which she says is what she normally gets. We have a long and pointless discussion with shaneka to the problems with using higher does of narcotics. And she explains that her lupus and RA makes the chronic pain worse and that she wanted more. I made it very clear to her that going from her low dose of 1mg and then to 4mg was a large change - espcially since she is here with COPD respiratory issues as well. She was not concerned about her breathing and only interested in discussing about getting a larger morphine dose. I understand she does have long standing pain issues so we will do 3mg IV for now and see how she does. If she tolerates this ok then will consider 4mg. Many of her problems are made worse with her gaining weight - espeically her aliyah int pain, as well as her breathing status. Miguel Ángel Breaux
[2019-02-23 07:49] LABS: ALB/GLOB RATIO 1.2 (1.0-2.1); ALBUMIN 3.7 g/dL (3.5-5.0); ALT/SGPT 17 U/L (9-52); AST/SGOT 21 U/L (14-36); BLOOD UREA NITROGEN 21 mg/dL (7-17); CALCIUM 8.8 mg/dl (8.6-10.4); GFR NON-AFRICAN AMERICAN > 60
--- NOTE | 2019-02-23 08:19 | CP.PCM.PN ---
Subjective - Date & Time of Evaluation Date of Evaluation: 02/23/19 Time of Evaluation: 08:17 - Subjective Subjective: Progress note for Dr. Merrill Patient was seen and examined at bedside in no acute distress. Patient reports still feeling short of breath and having mild chest discomfort. She denies palpitations, wheezing, coughing, nausea, vomiting, fevers, headaches, dizziness. Objective - Vital Signs/Intake and Output Vital Signs (last 24 hours): Temp Pulse Resp BP Pulse Ox 98.6 F 76 20 132/80 99 02/23/19 07:00 02/23/19 07:00 02/23/19 07:00 02/23/19 07:00 02/23/19 07:00 Intake and Output: 02/23/19 02/23/19 06:59 18:59 Intake Total 0 Balance 0 - Medications Medications: Current Medications Acetaminophen/Codeine Phosphate (Tylenol/Codeine 300 Mg/30 Mg) 1 ea PO Q6 PRN PRN Reason: Pain, moderate (4-7) Albuterol/Ipratropium (Duoneb 3 Mg/0.5 Mg (3 Ml) Ud) 1 ml INH RQ4 PRN PRN Reason: Shortness of Breath Alprazolam (Xanax) 1 mg PO HS PRN PRN Reason: Anxiety Last Admin: 02/22/19 21:48 Dose: 1 mg Aspirin (Ecotrin) 81 mg PO DAILY [facility] Last Admin: 02/22/19 09:28 Dose: 81 mg Calcium/Vitamin D (Oyster Shell Calcium/Vitamin D 500 Mg-200 Iu) 1 tab PO BID [facility] Last Admin: 02/22/19 17:30 Dose: 1 tab Digoxin (Digoxin) 0.125 mg PO DAILY@1800 [facility] Last Admin: 02/22/19 17:30 Dose: 0.125 mg Duloxetine HCl (Cymbalta) 90 mg PO HS [facility] Last Admin: 02/22/19 21:48 Dose: 90 mg Folic Acid (Folic Acid) 1 mg PO DAILY [facility] Last Admin: 02/22/19 09:28 Dose: 1 mg Heparin Sodium (Porcine) (Heparin) 5,000 units SC Q12 [facility] Last Admin: 02/22/19 21:48 Dose: 5,000 units Hydroxychloroquine Sulfate (Plaquenil) 200 mg PO BID [facility]; Protocol Last Admin: 04/18/19 17:30 Dose: 200 mg Ketorolac Tromethamine (Toradol) 15 mg IVP Q6 PRN PRN Reason: Pain, moderate (4-7) Last Admin: 02/22/19 18:43 Dose: 15 mg Methotrexate (Methotrexate) 7.5 mg PO QWK [facility] Methylprednisolone (Solu-Medrol) 40 mg IVP BID [facility] Last Admin: 02/22/19 17:31 Dose: 40 mg Morphine Sulfate (Morphine) 1 mg IVP Q4 PRN PRN Reason: Pain, moderate (4-7) Last Admin: 02/23/19 03:39 Dose: 1 mg Rosuvastatin Calcium (Crestor) 10 mg PO HS [facility] Last Admin: 02/22/19 21:48 Dose: 10 mg Trazodone HCl (Desyrel) 100 mg PO HS [facility] Last Admin: 02/22/19 21:48 Dose: 100 mg - Labs Labs: 02/23/19 06:36 02/23/19 06:36 - Additional Findings Additional findings: - Head Exam Head Exam: ATRAUMATIC, NORMAL INSPECTION - Eye Exam Eye Exam: EOMI, Normal appearance - ENT Exam ENT Exam: Mucous Membranes Moist - Respiratory Exam Respiratory Exam: Decreased Breath Sounds, Prolonged Expiratory Phase. absent: Clear to Auscultation Bilateral, Wheezes - Cardiovascular Exam Cardiovascular Exam: REGULAR RHYTHM, +S1, +S2 - GI/Abdominal Exam GI & Abdominal Exam: Normal Bowel Sounds, Soft. absent: Distended, Firm, Tenderness Additional comments: obese - Extremities Exam Extremities exam: Positive for: pedal edema (1+ b/l), pedal pulses present - Neurological Exam Neurological exam: Alert, Oriented x3 - Psychiatric Exam Psychiatric exam: Normal Affect, Normal Mood - Skin Skin Exam: Dry, Normal Color, Warm Assessment and Plan - Assessment and Plan (Free Text) Plan: 58 year old female with aPMHx of HTN, arrhythmia, COPD, hypercholesterolemia, and sleep apnea who was sent to [facility] by Dr. Merrill for worsening shortness of breath and chest discomfort. Chest Pain - EKG: NRS@70bpm - Troponin negative - BNP: 91.3 - Echo (01/11/19): poor echo window, normal LV wall thickness/function/wall motion. LVEF 62.8%. No vegetations. - Continue digoxin 0.125mg PO daily, ASA 81mg PO daily, Crestor 10mg PO HS - Considered stress test, however, patient cannot tolerate exercise or lexiscan (due wheezing/copd and increased risk for bronchospasm). *Scheduled for cardiac cath today at 9am. CHF - BNP: 91.3 - Continue digoxin 0.125mg PO daily, ASA 81mg PO daily, Crestor 10mg PO HS COPD exacerbation - Chemistry Lecturer on case, Dr. Choi - Continue management per primary team and contingents supervisor. Case discussed with Dr. Garfield Smith, PGY2
[2019-02-23 08:21] LABS: INR 1.1; PROTHROMBIN TIME 11.5 SECONDS (9.7-12.2)
--- NOTE | 2019-02-23 09:00 | CP.PCM.PN ---
Subjective - Date & Time of Evaluation Date of Evaluation: 02/23/19 Time of Evaluation: 08:56 - Subjective Subjective: Pulm Progress Note for Dr. Choi's service S/E at bedside for cardiac cath today offered mild sob reports some chest discomfort denies chest pressure, n/v, constipation or diarrhea, and dysuria Objective - Vital Signs/Intake and Output Vital Signs (last 24 hours): Temp Pulse Resp BP Pulse Ox 98.6 F 76 20 132/80 99 02/23/19 07:00 02/23/19 07:00 02/23/19 07:00 02/23/19 07:00 02/23/19 07:00 Intake and Output: 02/23/19 02/23/19 06:59 18:59 Intake Total 0 Balance 0 - Medications Medications: Current Medications Acetaminophen/Codeine Phosphate (Tylenol/Codeine 300 Mg/30 Mg) 1 ea PO Q6 PRN PRN Reason: Pain, moderate (4-7) Albuterol/Ipratropium (Duoneb 3 Mg/0.5 Mg (3 Ml) Ud) 1 ml INH RQ4 PRN PRN Reason: Shortness of Breath Alprazolam (Xanax) 1 mg PO HS PRN PRN Reason: Anxiety Last Admin: 02/22/19 21:48 Dose: 1 mg Aspirin (Ecotrin) 81 mg PO DAILY [facility] Last Admin: 02/22/19 09:28 Dose: 81 mg Calcium/Vitamin D (Oyster Shell Calcium/Vitamin D 500 Mg-200 Iu) 1 tab PO BID [facility] Last Admin: 02/22/19 17:30 Dose: 1 tab Digoxin (Digoxin) 0.125 mg PO DAILY@1800 [facility] Last Admin: 02/22/19 17:30 Dose: 0.125 mg Duloxetine HCl (Cymbalta) 90 mg PO HS [facility] Last Admin: 02/22/19 21:48 Dose: 90 mg Folic Acid (Folic Acid) 1 mg PO DAILY [facility] Last Admin: 02/22/19 09:28 Dose: 1 mg Heparin Sodium (Porcine) (Heparin) 5,000 units SC Q12 [facility] Last Admin: 02/22/19 21:48 Dose: 5,000 units Hydroxychloroquine Sulfate (Plaquenil) 200 mg PO BID [facility]; Protocol Last Admin: 02/22/19 17:30 Dose: 200 mg Ketorolac Tromethamine (Toradol) 15 mg IVP Q6 PRN PRN Reason: Pain, moderate (4-7) Last Admin: 02/22/19 18:43 Dose: 15 mg Methotrexate (Methotrexate) 7.5 mg PO QWK [facility] Methylprednisolone (Solu-Medrol) 40 mg IVP BID [facility] Last Admin: 02/22/19 17:31 Dose: 40 mg Morphine Sulfate (Morphine) 1 mg IVP Q4 PRN PRN Reason: Pain, moderate (4-7) Last Admin: 02/23/19 03:39 Dose: 1 mg Rosuvastatin Calcium (Crestor) 10 mg PO HS [facility] Last Admin: 02/22/19 21:48 Dose: 10 mg Trazodone HCl (Desyrel) 100 mg PO [facility] Last Admin: 02/22/19 21:48 Dose: 100 mg - Labs Labs: 02/23/19 06:36 02/23/19 06:36 PT 11.5 SECONDS (9.7-12.2) 02/23/19 08:09 INR 1.1 02/23/19 08:09 APTT 30 SECONDS (21-34) 02/23/19 08:09 - Constitutional Appears: Non-toxic, No Acute Distress - Head Exam Head Exam: NORMAL INSPECTION - Eye Exam Eye Exam: EOMI, Normal appearance - ENT Exam ENT Exam: Mucous Membranes Dry - Respiratory Exam Respiratory Exam: Decreased Breath Sounds, Wheezes, NORMAL BREATHING PATTERN. absent: Clear to Ausculation Bilateral - Cardiovascular Exam Cardiovascular Exam: REGULAR RHYTHM, +S1, +S2 - GI/Abdominal Exam GI & Abdominal Exam: Soft, Normal Bowel Sounds. absent: Guarding, Rigid, Tenderness - Extremities Exam Extremities Exam: Normal Inspection. 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 Merrill, for evaluation of COPD exacerbation. Plan: A: Shortness of Breath COPD exacerbation Hx of RA, SLE, DM, CAD, depression P: CXR (02/21): B/l hilar prominence interstitial may represent infection or edema Trop neg, BNP 91.3 continue Duonebs INH rQ4 prn continue Solumedol 40 IVP bid continue O2 via NC prn continue Morphine 1mg IVP q4 prn for cardiac cath today with cardiology steroid should help in the treatment of COPD exacerbation and in the treat of SLE and RA. Further assessment/ treatment as per primary team d/w Dr. Jimbo Wilder PGY-1
[2019-02-23] MEDS ORDERED: Iohexol 350mg/ml 100 ML ONE (10:02)
[2019-02-23] MEDS ORDERED: Nitroglycerin 50mg in D5W 50 MG/250 ML BOTTLE IV ONE (10:03)
[2019-02-23] MEDS ORDERED: Lidocaine 2% MPF (5 ml) Inj ONE (10:03)
[2019-02-23] MEDS ORDERED: Verapamil 2 ML ONE (10:03)
[2019-02-23] MEDS ORDERED: Midazolam 2 MG/2 ML VIAL ONE (10:09)
[2019-02-23] MEDS ORDERED: Iohexol 350mgl/ml 50 ML ONE (11:00)
[2019-02-23] MEDS: Calcium-Vit D 500 mg-200 Units Tab UD PO SCH ×2 (14:09→18:26)
[2019-02-23] MEDS: MethylPREDNISolone 40 mg Vial IVP SCH ×2 (14:10→18:26)
[2019-02-23] MEDS: Digoxin 125 mcg (0.125 mg) Tab PO SCH (18:26)
[2019-02-23] MEDS: Morphine 4 MG/ML VIAL IVP PRN ×2 (19:34→23:58)
--- NOTE | 2019-02-23 23:14 | CP.PCM.PN ---
Subjective - Date & Time of Evaluation Date of Evaluation: 02/23/19 Time of Evaluation: 19:40 - Subjective Subjective: Patient s/p Cath Non Obstructive Coronaries Normal EF Medical management including ASA 81 and Statin daily Objective - Vital Signs/Intake and Output Vital Signs (last 24 hours): Temp Pulse Resp BP Pulse Ox 98.3 F 78 20 132/78 95 02/23/19 15:37 02/23/19 15:37 02/23/19 15:37 02/23/19 15:37 02/23/19 15:37 - Medications Medications: Current Medications Acetaminophen/Codeine Phosphate (Tylenol/Codeine 300 Mg/30 Mg) 1 ea PO Q6 PRN PRN Reason: Pain, moderate (4-7) Albuterol/Ipratropium (Duoneb 3 Mg/0.5 Mg (3 Ml) Ud) 1 ml INH RQ4 PRN PRN Reason: Shortness of Breath Alprazolam (Xanax) 1 mg PO HS PRN PRN Reason: Anxiety Last Admin: 02/22/19 21:48 Dose: 1 mg Aspirin (Ecotrin) 81 mg PO DAILY [facility] Last Admin: 02/23/19 14:50 Dose: 81 mg Calcium/Vitamin D (Oyster Shell Calcium/Vitamin D 500 Mg-200 Iu) 1 tab PO BID [facility] Last Admin: 02/23/19 18:26 Dose: 1 tab Digoxin (Digoxin) 0.125 mg PO DAILY@1800 [facility] Last Admin: 02/23/19 18:26 Dose: 0.125 mg Duloxetine HCl (Cymbalta) 90 mg PO HS [facility] Last Admin: 02/23/19 21:44 Dose: 90 mg Folic Acid (Folic Acid) 1 mg PO DAILY [facility] Last Admin: 02/23/19 14:53 Dose: Not Given Heparin Sodium (Porcine) (Heparin) 5,000 units SC Q12 [facility] Last Admin: 02/22/19 21:48 Dose: 5,000 units Hydroxychloroquine Sulfate (Plaquenil) 200 mg PO BID [facility]; Protocol Last Admin: 02/23/19 18:26 Dose: 200 mg Ketorolac Tromethamine (Toradol) 15 mg IVP Q6 PRN PRN Reason: Pain, moderate (4-7) Last Admin: 02/23/19 11:31 Dose: 15 mg Methotrexate (Methotrexate) 7.5 mg PO QWK [facility] Methylprednisolone (Solu-Medrol) 40 mg IVP BID [facility] Last Admin: 02/23/19 18:26 Dose: 40 mg Morphine Sulfate (Morphine) 3 mg IVP Q4 PRN PRN Reason: Pain, moderate (4-7) Last Admin: 02/23/19 19:34 Dose: 3 mg Rosuvastatin Calcium (Crestor) 10 mg PO [facility] Last Admin: 02/23/19 21:44 Dose: 10 mg Trazodone HCl (Desyrel) 100 mg PO [facility] Last Admin: 02/23/19 21:44 Dose: 100 mg - Labs Labs: 02/23/19 06:36 02/23/19 06:36 PT 11.5 SECONDS (9.7-12.2) 02/23/19 08:09 INR 1.1 02/23/19 08:09 APTT 30 SECONDS (21-34) 02/23/19 08:09
[2019-02-24] MEDS: Morphine 4 MG/ML VIAL IVP PRN ×5 (03:46→20:58)
[2019-02-24 07:30] LABS: BASO % 0.2 % (0.0-2.0); EOS % 0.1 % (0.0-4.0); HEMOGLOBIN 10.4 g/dL (11.0-16.0); LYMPH % 16.2 % (20.0-40.0); MEAN CELL VOLUME 82.8 fL (81.0-99.0); MEAN CORPUSCULAR HEMOGLOBIN 27.6 pg (27.0-31.0); MEAN CORPUSCULAR HGB CONC 33.4 g/dL (33.0-37.0); MEAN PLATELET VOLUME 7.9 fL (7.2-11.7); MONO # 0.6 K/uL (0.0-0.8); MONO % 4.7 % (0.0-10.0); NEUT # 9.5 K/uL (1.8-7.0); NEUT % 78.8 % (50.0-75.0); RBC 3.77 Mil/uL (3.80-5.20); RED CELL DISTRIBUTION WIDTH 17.4 % (11.5-14.5); WHITE BLOOD COUNT 12.1 K/uL (4.8-10.8)
[2019-02-24 07:39] LABS: ALB/GLOB RATIO 1.2 (1.0-2.1); ALBUMIN 3.8 g/dL (3.5-5.0); ALT/SGPT 15 U/L (9-52); AST/SGOT 22 U/L (14-36); BLOOD UREA NITROGEN 24 mg/dL (7-17); GFR NON-AFRICAN AMERICAN > 60
[2019-02-24] MEDS: Calcium-Vit D 500 mg-200 Units Tab UD PO SCH ×2 (09:32→17:41)
[2019-02-24] MEDS: MethylPREDNISolone 40 mg Vial IVP SCH ×3 (09:33→17:41)
[2019-02-24] MEDS ORDERED: Acetaminophen-Codeine 300/30 mg Tab PO PRN (11:00)
--- NOTE | 2019-02-24 11:26 | CP.PCM.PN ---
<Carloz Troncoso - Last Filed: 02/24/19 11:26> Subjective - Date & Time of Evaluation Date of Evaluation: 02/24/19 Time of Evaluation: 11:23 - Subjective Subjective: HOSPITALIST SERVICE Pt s/e at bedside, denies any acute complaints overnights, reports persistent body aches and pains from her RA, would like more pain control. tex CP SOB FC [place] Objective - Vital Signs/Intake and Output Vital Signs (last 24 hours): Temp Pulse Resp BP Pulse Ox 98.1 F 76 20 132/78 95 02/24/19 07:00 02/24/19 08:00 02/24/19 07:00 02/24/19 07:00 02/24/19 07:00 - Medications Medications: Current Medications Acetaminophen/Codeine Phosphate (Tylenol/Codeine 300 Mg/30 Mg) 1 ea PO Q6 PRN PRN Reason: Pain, Mild (1-3) Albuterol/Ipratropium (Duoneb 3 Mg/0.5 Mg (3 Ml) Ud) 1 ml INH RQ4 PRN PRN Reason: Shortness of Breath Alprazolam (Xanax) 1 mg PO HS PRN PRN Reason: Anxiety Last Admin: 02/22/19 21:48 Dose: 1 mg Aspirin (Ecotrin) 81 mg PO DAILY [facility] Last Admin: 02/24/19 09:32 Dose: 81 mg Calcium/Vitamin D (Oyster Shell Calcium/Vitamin D 500 Mg-200 Iu) 1 tab PO BID [facility] Last Admin: 02/24/19 09:32 Dose: 1 tab Digoxin (Digoxin) 0.125 mg PO DAILY@1800 [facility] Last Admin: 02/23/19 18:26 Dose: 0.125 mg Duloxetine HCl (Cymbalta) 90 mg PO HS [facility] Last Admin: 02/23/19 21:44 Dose: 90 mg Folic Acid (Folic Acid) 1 mg PO DAILY [facility] Last Admin: 02/24/19 09:32 Dose: 1 mg Heparin Sodium (Porcine) (Heparin) 5,000 units SC Q12 [facility] Last Admin: 02/22/19 21:48 Dose: 5,000 units Hydroxychloroquine Sulfate (Plaquenil) 200 mg PO BID [facility]; Protocol Last Admin: 02/24/19 09:32 Dose: 200 mg Ketorolac Tromethamine (Toradol) 15 mg IVP Q6 PRN PRN Reason: Pain, moderate (4-7) Last Admin: 02/23/19 11:31 Dose: 15 mg Methotrexate (Methotrexate) 7.5 mg PO QWK [facility] Methylprednisolone (Solu-Medrol) 20 mg IVP BID [facility] Morphine Sulfate (Morphine) 4 mg IVP Q4 PRN PRN Reason: Pain, severe (8-10) Rosuvastatin Calcium (Crestor) 10 mg PO HS [facility] Last Admin: 02/23/19 21:44 Dose: 10 mg Trazodone HCl (Desyrel) 100 mg PO HS [facility] Last Admin: 02/23/19 21:44 Dose: 100 mg - Labs Labs: 02/24/19 07:19 02/24/19 07:19 PT 11.5 SECONDS (9.7-12.2) 02/23/19 08:09 INR 1.1 02/23/19 08:09 APTT 30 SECONDS (21-34) 02/23/19 08:09 - Additional Findings Additional findings: - Constitutional Appears: Non-toxic, No Acute Distress - Head Exam Head Exam: ATRAUMATIC, NORMOCEPHALIC - Eye Exam Eye Exam: EOMI, Normal appearance - ENT Exam ENT Exam: Mucous Membranes Moist, Normal Exam - Respiratory Exam Respiratory Exam: Decreased Breath Sounds, NORMAL BREATHING PATTERN. absent: Rhonchi, Wheezes, Respiratory Distress - Cardiovascular Exam Cardiovascular Exam: +S1, +S2 - GI/Abdominal Exam GI & Abdominal Exam: Soft, Normal Bowel Sounds. absent: Tenderness Additional comments: obese abdomen - Extremities Exam Extremities Exam: Full ROM, Pedal Edema Additional comments: 1+ pitting edema B/l LE deformity bilateral hands consisted with RA - Back Exam Back Exam: NORMAL INSPECTION - Neurological Exam Neurological Exam: Alert, Awake, Oriented x3. absent: Normal Gait - Psychiatric Exam Psychiatric exam: Normal Affect, Normal Mood - Skin Skin Exam: Dry, Intact, Normal Color, Warm Assessment and Plan - Assessment and Plan (Free Text) Assessment: : 58yo obese female PMH SLE, RA, HTN, CHF, COPD, depression/anxiety, DM, HLD sent in by her editor & co founder, Dr. Merrill, for evaluation COPD exarcerbation vs CHF exarcerbation Plan: Shortness of Breath/Chest pain COPD vs. CHF exacerbation On telemetry CXR (02/21): Right sided mediport extends to SVC. B/l hilar prominence, biapical pleural thickening, interstitial prominence may represent infection or edema. Trop neg, BNP 91.3 Echo (01/11/19): poor echo window, normal LV wall thickness/function/wall motion. LVEF 62.8%. No vegetations. - home Digoxin 0.125mg po daily - Solumedol 40 IVP BID - Duonebs INH rQ4 prn - O2 via NC prn - Pulm consulted: Dr. Choi - continue current management - Cardio consulted: Dr. Merrill Cath Neg for CAD, normal EF SLE RA - Solumedrol 40 IVP BID - home Hydroxychloroquine 200mg po BID - home Methotrexate 7.5mg po q7d - Morphine increased from 3mg to 4mg IVP q4 prn - toradol 15 mg IVP Q6H PRN - Tylenol 3 po q6 prn Hyperlipidemia - home Crestor 10mg po HS Anxiety/Depression - home Xanax 1mg po HS prn - home Cymbalta 90mg po HS - home Trazodone 100mg po HS PPx - DVT: ASA 81mg po daily, SCDs, Heparin 5000 SC Q12 - Diet: HHD 2g Na, Low Carb - home Calcium/VitD 1 tab po BID - home Folic Acid 1mg po daily - PT/OT evaluation DISPO: stable for dc to [facility], pending placement [facility] PGY1 Plan discussed with Dr Breaux <Miguel Ángel Breaux - Last Filed: 02/24/19 11:46> Objective - Vital Signs/Intake and Output Vital Signs (last 24 hours): Temp Pulse Resp BP Pulse Ox 98.1 F 76 20 132/78 95 02/24/19 07:00 02/24/19 08:00 02/24/19 07:00 02/24/19 07:00 02/24/19 07:00 - Medications Medications: Current Medications Acetaminophen/Codeine Phosphate (Tylenol/Codeine 300 Mg/30 Mg) 1 ea PO Q6 PRN PRN Reason: Pain, Mild (1-3) Albuterol/Ipratropium (Duoneb 3 Mg/0.5 Mg (3 Ml) Ud) 1 ml INH RQ4 PRN PRN Reason: Shortness of Breath Alprazolam (Xanax) 1 mg PO HS PRN PRN Reason: Anxiety Last Admin: 02/22/19 21:48 Dose: 1 mg Aspirin (Ecotrin) 81 mg PO DAILY [facility] Last Admin: 02/24/19 09:32 Dose: 81 mg Calcium/Vitamin D (Oyster Shell Calcium/Vitamin D 500 Mg-200 Iu) 1 tab PO BID [facility] Last Admin: 02/24/19 09:32 Dose: 1 tab Digoxin (Digoxin) 0.125 mg PO DAILY@1800 [facility] Last Admin: 02/23/19 18:26 Dose: 0.125 mg Duloxetine HCl (Cymbalta) 90 mg PO HS [facility] Last Admin: 02/23/19 21:44 Dose: 90 mg Folic Acid (Folic Acid) 1 mg PO DAILY [facility] Last Admin: 02/24/19 09:32 Dose: 1 mg Heparin Sodium (Porcine) (Heparin) 5,000 units SC Q12 [facility] Last Admin: 02/22/19 21:48 Dose: 5,000 units Hydroxychloroquine Sulfate (Plaquenil) 200 mg PO BID [facility]; Protocol Last Admin: 02/24/19 09:32 Dose: 200 mg Ketorolac Tromethamine (Toradol) 15 mg IVP Q6 PRN PRN Reason: Pain, moderate (4-7) Last Admin: 02/23/19 11:31 Dose: 15 mg Methotrexate (Methotrexate) 7.5 mg PO QWK [facility] Methylprednisolone (Solu-Medrol) 20 mg IVP BID [facility] Last Admin: 02/24/19 11:34 Dose: Not Given Morphine Sulfate (Morphine) 4 mg IVP Q4 PRN PRN Reason: Pain, severe (8-10) Rosuvastatin Calcium (Crestor) 10 mg PO HS [facility] Last Admin: 02/23/19 21:44 Dose: 10 mg Trazodone HCl (Desyrel) 100 mg PO HS [facility] Last Admin: 02/23/19 21:44 Dose: 100 mg - Labs Labs: 02/24/19 07:19 02/24/19 07:19 PT 11.5 SECONDS (9.7-12.2) 02/23/19 08:09 INR 1.1 02/23/19 08:09 APTT 30 SECONDS (21-34) 02/23/19 08:09 Attending/Attestation - Attestation I have personally seen and examined this patient.: Yes I have fully participated in the care of the patient.: Yes I have reviewed all pertinent clinical information, including history, physical exam and plan: Yes Notes (Text): 02/24/19 11:41 Medical attending: Patient was seen and examined by me. Patient reports still has ongoing chronic pain as before Yesterday she and I had a long back and forth discussion about her pain medication morphine and so we increased only a little bit more. She reports that this does seem to help her - however I again emphasized to her that considering her breathing situation that giving narcotic class medications was dangerous and that we would not be increasing it more than 4mg Also we are decreasing the IV solumedrol. We also talked extensively about the patient's weight gain as well - as it is contributing signifigantly to the patient's shortness of breath and also to ongoing joint and back pains. Hopefully we can DC soon. Case workers explain that the patient could go with home PT We also spoke at long length with shaneka to her mother (whom is also a patient here is room 657a) Miguel Ángel Breaux
[2019-02-24] MEDS: Digoxin 125 mcg (0.125 mg) Tab PO SCH (17:41)
--- NOTE | 2019-02-24 19:03 | CP.PCM.PN ---
Subjective - Date & Time of Evaluation Date of Evaluation: 02/24/19 Time of Evaluation: 15:15 - Subjective Subjective: Patient seen and evaluated denies chest pain and dyspnea Objective - Vital Signs/Intake and Output Vital Signs (last 24 hours): Temp Pulse Resp BP Pulse Ox 98.1 F 76 20 132/78 95 02/24/19 07:00 02/24/19 08:00 02/24/19 07:00 02/24/19 07:00 02/24/19 07:00 - Medications Medications: Current Medications Acetaminophen/Codeine Phosphate (Tylenol/Codeine 300 Mg/30 Mg) 1 ea PO Q6 PRN PRN Reason: Pain, Mild (1-3) Albuterol/Ipratropium (Duoneb 3 Mg/0.5 Mg (3 Ml) Ud) 1 ml INH RQ4 PRN PRN Reason: Shortness of Breath Alprazolam (Xanax) 1 mg PO HS PRN PRN Reason: Anxiety Last Admin: 02/22/19 21:48 Dose: 1 mg Aspirin (Ecotrin) 81 mg PO DAILY [facility] Last Admin: 02/24/19 09:32 Dose: 81 mg Calcium/Vitamin D (Oyster Shell Calcium/Vitamin D 500 Mg-200 Iu) 1 tab PO BID [facility] Last Admin: 02/24/19 09:32 Dose: 1 tab Digoxin (Digoxin) 0.125 mg PO DAILY@1800 [facility] Last Admin: 02/23/19 18:26 Dose: 0.125 mg Duloxetine HCl (Cymbalta) 90 mg PO HS [facility] Last Admin: 02/23/19 21:44 Dose: 90 mg Folic Acid (Folic Acid) 1 mg PO DAILY [facility] Last Admin: 02/24/19 09:32 Dose: 1 mg Heparin Sodium (Porcine) (Heparin) 5,000 units SC Q12 [facility] Last Admin: 02/22/19 21:48 Dose: 5,000 units Hydroxychloroquine Sulfate (Plaquenil) 200 mg PO BID [facility]; Protocol Last Admin: 02/24/19 09:32 Dose: 200 mg Ketorolac Tromethamine (Toradol) 15 mg IVP Q6 PRN PRN Reason: Pain, moderate (4-7) Last Admin: 02/23/19 11:31 Dose: 15 mg Methotrexate (Methotrexate) 7.5 mg PO QWK [facility] Methylprednisolone (Solu-Medrol) 20 mg IVP BID [facility] Morphine Sulfate (Morphine) 4 mg IVP Q4 PRN PRN Reason: Pain, severe (8-10) Rosuvastatin Calcium (Crestor) 10 mg PO HS [facility] Last Admin: 02/23/19 21:44 Dose: 10 mg Trazodone HCl (Desyrel) 100 mg PO HS [facility] Last Admin: 02/23/19 21:44 Dose: 100 mg - Labs Labs: 02/24/19 07:19 02/24/19 07:19 PT 11.5 SECONDS (9.7-12.2) 02/23/19 08:09 INR 1.1 02/23/19 08:09 APTT 30 SECONDS (21-34) 02/23/19 08:09 - Additional Findings Additional findings: - Constitutional Appears: Non-toxic, No Acute Distress - Head Exam Head Exam: ATRAUMATIC, NORMOCEPHALIC - Eye Exam Eye Exam: EOMI, Normal appearance - ENT Exam ENT Exam: Mucous Membranes Moist, Normal Exam - Respiratory Exam Respiratory Exam: Decreased Breath Sounds, NORMAL BREATHING PATTERN. absent: Rhonchi, Wheezes, Respiratory Distress - Cardiovascular Exam Cardiovascular Exam: +S1, +S2 - GI/Abdominal Exam GI & Abdominal Exam: Soft, Normal Bowel Sounds. absent: Tenderness Additional comments: obese abdomen - Extremities Exam Extremities Exam: Full ROM, Pedal Edema Additional comments: 1+ pitting edema B/l LE deformity bilateral hands consisted with RA - Back Exam Back Exam: NORMAL INSPECTION - Neurological Exam Neurological Exam: Alert, Awake, Oriented x3. absent: Normal Gait - Psychiatric Exam Psychiatric exam: Normal Affect, Normal Mood - Skin Skin Exam: Dry, Intact, Normal Color, Warm Assessment and Plan - Assessment and Plan (Free Text) Assessment: : 58yo obese female PMH SLE, RA, HTN, CHF, COPD, depression/anxiety, DM, HLD sent in by her benefits assistant, Dr. Merrill, for evaluation COPD exarcerbation vs CHF exarcerbation Plan: Shortness of Breath/Chest pain COPD vs. CHF exacerbation On telemetry CXR (02/21): Right sided mediport extends to SVC. B/l hilar prominence, biapical pleural thickening, interstitial prominence may represent infection or edema. Trop neg, BNP 91.3 Echo (01/11/19): poor echo window, normal LV wall thickness/function/wall motion. LVEF 62.8%. No vegetations. - home Digoxin 0.125mg po daily - Solumedol 40 IVP BID - Duonebs INH rQ4 prn - O2 via NC prn - Pulm consulted: Dr. Choi - continue current management Cath Non obstructive CAD, normal EF SLE RA - Solumedrol 40 IVP BID - home Hydroxychloroquine 200mg po BID - home Methotrexate 7.5mg po q7d - Morphine increased from 3mg to 4mg IVP q4 prn - toradol 15 mg IVP Q6H PRN - Tylenol 3 po q6 prn Hyperlipidemia - home Crestor 10mg po HS Anxiety/Depression - home Xanax 1mg po HS prn - home Cymbalta 90mg po HS - home Trazodone 100mg po HS PPx - DVT: ASA 81mg po daily, SCDs, Heparin 5000 SC Q12 - Diet: HHD 2g Na, Low Carb - home Calcium/VitD 1 tab po BID - home Folic Acid 1mg po daily - PT/OT evaluation DISPO: stable for dc to [facility], pending placement Objective - Vital Signs/Intake and Output Vital Signs (last 24 hours): Temp Pulse Resp BP Pulse Ox 98.4 F 83 18 136/77 92 L 02/24/19 16:13 02/24/19 16:13 02/24/19 16:13 02/24/19 16:13 02/24/19 16:13 Intake and Output: 02/24/19 02/25/19 18:59 06:59 Intake Total 700 Balance 700 - Medications Medications: Current Medications Acetaminophen/Codeine Phosphate (Tylenol/Codeine 300 Mg/30 Mg) 1 ea PO Q6 PRN PRN Reason: Pain, Mild (1-3) Albuterol/Ipratropium (Duoneb 3 Mg/0.5 Mg (3 Ml) Ud) 1 ml INH RQ4 PRN PRN Reason: Shortness of Breath Alprazolam (Xanax) 1 mg PO HS PRN PRN Reason: Anxiety Last Admin: 02/22/19 21:48 Dose: 1 mg Aspirin (Ecotrin) 81 mg PO DAILY [facility] Last Admin: 02/24/19 09:32 Dose: 81 mg Calcium/Vitamin D (Oyster Shell Calcium/Vitamin D 500 Mg-200 Iu) 1 tab PO BID [facility] Last Admin: 02/24/19 17:41 Dose: 1 tab Digoxin (Digoxin) 0.125 mg PO DAILY@1800 [facility] Last Admin: 02/24/19 17:41 Dose: 0.125 mg Duloxetine HCl (Cymbalta) 90 mg PO HS [facility] Last Admin: 02/23/19 21:44 Dose: 90 mg Folic Acid (Folic Acid) 1 mg PO DAILY [facility] Last Admin: 02/24/19 09:32 Dose: 1 mg Heparin Sodium (Porcine) (Heparin) 5,000 units SC Q12 [facility] Last Admin: 02/22/19 21:48 Dose: 5,000 units Hydroxychloroquine Sulfate (Plaquenil) 200 mg PO BID [facility]; Protocol Last Admin: 02/24/19 17:41 Dose: 200 mg Methotrexate (Methotrexate) 7.5 mg PO QWK [facility] Methylprednisolone (Solu-Medrol) 20 mg IVP BID [facility] Last Admin: 02/24/19 17:41 Dose: 20 mg Morphine Sulfate (Morphine) 4 mg IVP Q4 PRN PRN Reason: Pain, severe (8-10) Last Admin: 02/24/19 17:42 Dose: 4 mg Rosuvastatin Calcium (Crestor) 10 mg PO HS [facility] Last Admin: 02/23/19 21:44 Dose: 10 mg Trazodone HCl (Desyrel) 100 mg PO HS [facility] Last Admin: 02/23/19 21:44 Dose: 100 mg - Labs Labs: 02/24/19 07:19 02/24/19 07:19 PT 11.5 SECONDS (9.7-12.2) 02/23/19 08:09 INR 1.1 02/23/19 08:09 APTT 30 SECONDS (21-34) 02/23/19 08:09
--- NOTE | 2019-02-24 20:13 | CP.PCM.PN ---
Subjective - Date & Time of Evaluation Date of Evaluation: 02/24/19 Time of Evaluation: 19:00 - Subjective Subjective: Patient seen and examined. Sitting comfortably in no distress Status post cardiac cath with nonobstructive coronaries and normal ejection fraction Slight cough but overall breathing much improved Continue present treatment Stable from pulmonary standpoint Objective - Vital Signs/Intake and Output Vital Signs (last 24 hours): Temp Pulse Resp BP Pulse Ox 98.4 F 83 18 136/77 92 L 02/24/19 16:13 02/24/19 16:13 02/24/19 16:13 02/24/19 16:13 02/24/19 16:13 Intake and Output: 02/24/19 02/25/19 18:59 06:59 Intake Total 700 Balance 700 - Medications Medications: Current Medications Acetaminophen/Codeine Phosphate (Tylenol/Codeine 300 Mg/30 Mg) 1 ea PO Q6 PRN PRN Reason: Pain, Mild (1-3) Albuterol/Ipratropium (Duoneb 3 Mg/0.5 Mg (3 Ml) Ud) 1 ml INH RQ4 PRN PRN Reason: Shortness of Breath Alprazolam (Xanax) 1 mg PO HS PRN PRN Reason: Anxiety Last Admin: 02/22/19 21:48 Dose: 1 mg Aspirin (Ecotrin) 81 mg PO DAILY [facility] Last Admin: 02/24/19 09:32 Dose: 81 mg Calcium/Vitamin D (Oyster Shell Calcium/Vitamin D 500 Mg-200 Iu) 1 tab PO BID [facility] Last Admin: 02/24/19 17:41 Dose: 1 tab Digoxin (Digoxin) 0.125 mg PO DAILY@1800 [facility] Last Admin: 02/24/19 17:41 Dose: 0.125 mg Duloxetine HCl (Cymbalta) 90 mg PO HS [facility] Last Admin: 02/23/19 21:44 Dose: 90 mg Folic Acid (Folic Acid) 1 mg PO DAILY [facility] Last Admin: 02/24/19 09:32 Dose: 1 mg Heparin Sodium (Porcine) (Heparin) 5,000 units SC Q12 [facility] Last Admin: 02/22/19 21:48 Dose: 5,000 units Hydroxychloroquine Sulfate (Plaquenil) 200 mg PO BID [facility]; Protocol Last Admin: 02/24/19 17:41 Dose: 200 mg Methotrexate (Methotrexate) 7.5 mg PO QWK [facility] Methylprednisolone (Solu-Medrol) 20 mg IVP BID [facility] Last Admin: 02/24/19 17:41 Dose: 20 mg Morphine Sulfate (Morphine) 4 mg IVP Q4 PRN PRN Reason: Pain, severe (8-10) Last Admin: 02/24/19 17:42 Dose: 4 mg Rosuvastatin Calcium (Crestor) 10 mg PO HS [facility] Last Admin: 02/23/19 21:44 Dose: 10 mg Trazodone HCl (Desyrel) 100 mg PO HS [facility] Last Admin: 02/23/19 21:44 Dose: 100 mg - Labs Labs: 02/24/19 07:19 02/24/19 07:19 PT 11.5 SECONDS (9.7-12.2) 02/23/19 08:09 INR 1.1 02/23/19 08:09 APTT 30 SECONDS (21-34) 02/23/19 08:09
[2019-02-25 00:50] VITALS: RESP 20; O2SAT 100
[2019-02-25] MEDS: Morphine 4 MG/ML VIAL IVP PRN ×5 (01:04→18:27)
[2019-02-25 07:46] LABS: BASO % 0.2 % (0.0-2.0); EOS % 0.2 % (0.0-4.0); HEMOGLOBIN 10.1 g/dL (11.0-16.0); LYMPH % 22.5 % (20.0-40.0); MEAN CELL VOLUME 83.5 fL (81.0-99.0); MEAN CORPUSCULAR HEMOGLOBIN 27.1 pg (27.0-31.0); MEAN CORPUSCULAR HGB CONC 32.5 g/dL (33.0-37.0); MEAN PLATELET VOLUME 7.8 fL (7.2-11.7); MONO % 7.5 % (0.0-10.0); NEUT # 9.4 K/uL (1.8-7.0); NEUT % 69.6 % (50.0-75.0); NRBC % 0.1 % (0.0-2.0); RBC 3.71 Mil/uL (3.80-5.20); RED CELL DISTRIBUTION WIDTH 17.3 % (11.5-14.5); WHITE BLOOD COUNT 13.5 K/uL (4.8-10.8)
[2019-02-25 07:54] LABS: ALB/GLOB RATIO 1.1 (1.0-2.1); ALBUMIN 3.6 g/dL (3.5-5.0); ALT/SGPT 22 U/L (9-52); AST/SGOT 13 U/L (14-36); BLOOD UREA NITROGEN 21 mg/dL (7-17); CALCIUM 9.3 mg/dl (8.6-10.4); GFR NON-AFRICAN AMERICAN > 60
--- NOTE | 2019-02-25 08:04 | CP.PCM.DIS ---
<TrinyjameyCarloz mckenna - Last Filed: 02/25/19 15:16> Provider - Provider Date of Admission: 02/21/19 19:52 Attending physician: Minesh Andino MD Consults: 02/21/19 21:58 Pulmonology Consult Routine Comment: Consulting Provider: Catracho Choi Consulting Physician: Catracho Choi Reason for Consult: copd exacerbation, patient's pulm 02/22/19 01:21 Cardiology Consult Routine Comment: Consulting Provider: Otilio Merrill Consulting Physician: Otilio Merrill Reason for Consult: patient's cardio, referring physician Time Spent in preparation of Discharge (in minutes): 45 Diagnosis - Discharge Diagnosis (1) COPD exacerbation Status: Resolved (2) HTN (hypertension) Status: Chronic (3) Hyperlipemia Status: Chronic (4) Rheumatoid arthritis Status: Chronic (5) SLE (systemic lupus erythematosus) Status: Chronic Hospital Course - Lab Results Lab Results: Most Recent Lab Values WBC 13.5 K/uL (4.8-10.8) H 02/25/19 07:26 RBC 3.71 Mil/uL (3.80-5.20) L 02/25/19 07:26 Hgb 10.1 g/dL (11.0-16.0) L 02/25/19 07:26 Hct 31.0 % (34.0-47.0) L 02/25/19 07:26 MCV 83.5 fL (81.0-99.0) 02/25/19 07:26 MCH 27.1 pg (27.0-31.0) 02/25/19 07:26 MCHC 32.5 g/dL (33.0-37.0) L 02/25/19 07:26 RDW 17.3 % (11.5-14.5) H 02/25/19 07:26 Plt Count 264 K/uL (130-400) 02/25/19 07:26 MPV 7.8 fL (7.2-11.7) 02/25/19 07:26 Neut % (Auto) 69.6 % (50.0-75.0) 02/25/19 07:26 Lymph % (Auto) 22.5 % (20.0-40.0) 02/25/19 07:26 [place] % (Auto) 7.5 % (0.0-10.0) 02/25/19 07:26 Eos % (Auto) 0.2 % (0.0-4.0) 02/25/19 07:26 Baso % (Auto) 0.2 % (0.0-2.0) 02/25/19 07:26 Neut # (Auto) 9.4 K/uL (1.8-7.0) H 02/25/19 07:26 Lymph # (Auto) 3.0 K/uL (1.0-4.3) 02/25/19 07:26 [place] # (Auto) 1.0 K/uL (0.0-0.8) H 02/25/19 07:26 Eos # (Auto) 0.0 K/uL (0.0-0.7) 02/25/19 07:26 Baso # (Auto) 0.0 K/uL (0.0-0.2) 02/25/19 07:26 PT 11.5 SECONDS (9.7-12.2) 02/23/19 08:09 INR 1.1 02/23/19 08:09 APTT 30 SECONDS (21-34) 02/23/19 08:09 Sodium 137 mmol/L (132-148) 02/25/19 07:26 Potassium 4.7 mmol/L (3.6-5.2) 02/25/19 07:26 Chloride 98 mmol/L (98-107) 02/25/19 07:26 Carbon Dioxide 35 mmol/L (22-30) H 02/25/19 07:26 Anion Gap 8 (10-20) L 02/25/19 07:26 BUN 21 mg/dL (7-17) H 02/25/19 07:26 Creatinine 0.9 mg/dL (0.7-1.2) 02/25/19 07:26 Est GFR ( Amer) > 60 02/25/19 07:26 Est GFR (Non-Af Amer) > 60 02/25/19 07:26 POC Glucose (mg/dL) 181 mg/dL (65-110) H 02/23/19 20:51 Random Glucose 168 mg/dL (65-105) H 02/25/19 07:26 Calcium 9.3 mg/dl (8.6-10.4) 02/25/19 07:26 Magnesium 2.2 mg/dL (1.6-2.3) 02/25/19 07:26 Total Bilirubin 0.3 mg/dL (0.2-1.3) 02/25/19 07:26 AST 13 U/L (14-36) L D 02/25/19 07:26 ALT 22 U/L (9-52) 02/25/19 07:26 Alkaline Phosphatase 54 U/L (38-126) 02/25/19 07:26 Troponin I < 0.0120 ng/mL (0.00-0.120) 02/21/19 17:42 NT-Pro-B Natriuret Pep 91.3 pg/mL (0-900) 02/21/19 17:42 Total Protein 6.7 g/dL (6.3-8.3) 02/25/19 07:26 Albumin 3.6 g/dL (3.5-5.0) 02/25/19 07:26 Globulin 3.1 gm/dL (2.2-3.9) 02/25/19 07:26 Albumin/Globulin Ratio 1.1 (1.0-2.1) 02/25/19 07:26 - Hospital Course Hospital Course: Pt admitted for dyspnea and exacerbation of her chronic SLE, COPD, Pt improved with breathing treatments, dc home on pred taper. Pt to continue with outpt pt Discharge Exam - Head Exam Head Exam: ATRAUMATIC, NORMOCEPHALIC - Additional Findings Additional findings: - Constitutional Appears: Non-toxic, No Acute Distress - Head Exam Head Exam: ATRAUMATIC, NORMOCEPHALIC - Eye Exam Eye Exam: EOMI, Normal appearance - ENT Exam ENT Exam: Mucous Membranes Moist, Normal Exam - Respiratory Exam Respiratory Exam: Decreased Breath Sounds, NORMAL BREATHING PATTERN. absent: Rhonchi, Wheezes, Respiratory Distress - Cardiovascular Exam Cardiovascular Exam: +S1, +S2 - GI/Abdominal Exam GI & Abdominal Exam: Soft, Normal Bowel Sounds. absent: Tenderness Additional comments: obese abdomen - Extremities Exam Extremities Exam: Full ROM, Pedal Edema Additional comments: 1+ pitting edema B/l LE deformity bilateral hands consisted with RA - Back Exam Back Exam: NORMAL INSPECTION - Neurological Exam Neurological Exam: Alert, Awake, Oriented x3. absent: Normal Gait - Psychiatric Exam Psychiatric exam: Normal Affect, Normal Mood - Skin Skin Exam: Dry, Intact, Normal Color, Warm Discharge Plan - Discharge Medications Prescriptions: ALPRAZolam [Xanax] 0.25 mg PO DAILY #5 tab oxyCODONE/Acetaminophen [Percocet 5/325 mg Tab] 1 ea PO BID #10 tab Prednisone [Deltasone] 20 mg PO DAILY #5 tablet - Follow Up Plan Condition: STABLE Disposition: HOME/ ROUTINE Instructions: Heart Healthy Diet, COPD Including Emphysema (DC), Heart Failure, Adult (DC), Chest Pain (DC), Low Salt Diet, Medicines for Chronic Obstructive Pulmonary Disease (COPD), Risk Factors for COPD Additional Instructions: Patient is be discharged home and continue her home medications as per PMD Please take the following additional medications as prescribed ALPRAZolam [Xanax] 0.25 mg PO DAILY #5 tab oxyCODONE/Acetaminophen [Percocet 5/325 mg Tab] 1 ea PO BID #10 tab Prednisone [Deltasone] 20 mg PO DAILY #5 tablet Please follow up with Dr Willis within 7 days of discharge, please request a possible consultation with a 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 operator paraffin plant regarding management of your RA Please follow up with Dr Choi within 7 days of discharge Please follow up with Dr Merrill within 14 days of discharge You may participate in outpatient Physical Therapy once a week for 6 weeks, please obtain a new prescription from your PMD take care and be well Referrals: Catracho Choi MD [Staff Provider] - Otilio Merrill MD [Staff Provider] - Isaac Willis MD [Staff Provider] - <Miguel Ángel Breaux H - Last Filed: 02/25/19 15:32> Provider - Provider Date of Admission: 02/21/19 19:52 Attending physician: Minesh Andino MD Consults: 02/21/19 21:58 Pulmonology Consult Routine Comment: Consulting Provider: Catracho Choi Consulting Physician: Catracho Choi Reason for Consult: copd exacerbation, patient's pulm 02/22/19 01:21 Cardiology Consult Routine Comment: Consulting Provider: Otilio Merrill Consulting Physician: Otilio Merrill Reason for Consult: patient's cardio, referring physician Hospital Course - Lab Results Lab Results: Most Recent Lab Values WBC 13.5 K/uL (4.8-10.8) H 02/25/19 07:26 RBC 3.71 Mil/uL (3.80-5.20) L 02/25/19 07:26 Hgb 10.1 g/dL (11.0-16.0) L 02/25/19 07:26 Hct 31.0 % (34.0-47.0) L 02/25/19 07:26 MCV 83.5 fL (81.0-99.0) 02/25/19 07: MCH 27.1 pg (27.0-31.0) 02/25/19 07: MCHC 32.5 g/dL (33.0-37.0) L 02/25/19 07: RDW 17.3 % (11.5-14.5) H 02/25/19 07:26 Plt Count 264 K/uL (130-400) 02/25/19 07:26 MPV 7.8 fL (7.2-11.7) 02/25/19 07:26 Neut % (Auto) 69.6 % (50.0-75.0) 02/25/19 07: Lymph % (Auto) 22.5 % (20.0-40.0) 02/25/19 07:26 Dodge % (Auto) 7.5 % (0.0-10.0) 02/25/19 07: Eos % (Auto) 0.2 % (0.0-4.0) 02/25/19 07: Baso % (Auto) 0.2 % (0.0-2.0) 02/25/19 07:26 Neut # (Auto) 9.4 K/uL (1.8-7.0) H 02/25/19 07:26 Lymph # (Auto) 3.0 K/uL (1.0-4.3) 02/25/19 07:26 Dodge # (Auto) 1.0 K/uL (0.0-0.8) H 02/25/19 07:26 Eos # (Auto) 0.0 K/uL (0.0-0.7) 02/25/19 07:26 Baso # (Auto) 0.0 K/uL (0.0-0.2) 02/25/19 07:26 PT 11.5 SECONDS (9.7-12.2) 02/23/19 08:09 INR 1.1 02/23/19 08:09 APTT 30 SECONDS (21-34) 02/23/19 08:09 Sodium 137 mmol/L (132-148) 02/25/19 07:26 Potassium 4.7 mmol/L (3.6-5.2) 02/25/19 07:26 Chloride 98 mmol/L (98-107) 02/25/19 07:26 Carbon Dioxide 35 mmol/L (22-30) H 02/25/19 07:26 Anion Gap 8 (10-20) L 02/25/19 07:26 BUN 21 mg/dL (7-17) H 02/25/19 07:26 Creatinine 0.9 mg/dL (0.7-1.2) 02/25/19 07:26 Est GFR ( Amer) > 60 02/25/19 07:26 Est GFR (Non-Af Amer) > 60 02/25/19 07:26 POC Glucose (mg/dL) 181 mg/dL (65-110) H 02/23/19 20:51 Random Glucose 168 mg/dL (65-105) H 02/25/19 07:26 Calcium 9.3 mg/dl (8.6-10.4) 02/25/19 07:26 Magnesium 2.2 mg/dL (1.6-2.3) 02/25/19 07:26 Total Bilirubin 0.3 mg/dL (0.2-1.3) 02/25/19 07:26 AST 13 U/L (14-36) L D 02/25/19 07:26 ALT 22 U/L (9-52) 02/25/19 07:26 Alkaline Phosphatase 54 U/L (38-126) 02/25/19 07:26 Troponin I < 0.0120 ng/mL (0.00-0.120) 02/21/19 17:42 NT-Pro-B Natriuret Pep 91.3 pg/mL (0-900) 02/21/19 17:42 Total Protein 6.7 g/dL (6.3-8.3) 02/25/19 07:26 Albumin 3.6 g/dL (3.5-5.0) 02/25/19 07:26 Globulin 3.1 gm/dL (2.2-3.9) 02/25/19 07:26 Albumin/Globulin Ratio 1.1 (1.0-2.1) 02/25/19 07:26 Attending/Attestation - Attestation I have personally seen and examined this patient.: Yes I have fully participated in the care of the patient.: Yes I have reviewed all pertinent clinical information, including history, physical exam and plan: Yes Notes (Text): 02/25/19 15:26 Medical attending: Patient was seen and examined by me. Agree with the above note by the resident The patient was not in any acute distress when we came and saw her today She continues to report chronic pain as before She has been seen walking in the hallway to and from her mother's room (her mother is also a patient here as well) Patient explained she wanted to go to the same [facility] with her mother however the PT notes reccomend that because she is able to ambulate on her own that she have PT done at home. I had to explain to the patient that her mother would still be here waiting for [facility] placement The patient as mentioned previously has undergone a cardiac catherization and did not require further intervention We recomended she try to loose weight as she does have obesity that is likley making her COPD, joint pain, chronic issues much worse than they need to be With reguards to her RA, the patient explains she has been seeing a rhematologist in the past and placed on Humira however she reports that it did not help and so she went back to taking the methotrexate The patient will be going home with an RX for percocet and also prednisone. Both of these for a very brief duration of time. Miguel Ángel Breaux
[2019-02-25 08:21] VITALS: BP 111/66; TEMP 98.1
[2019-02-25 08:53] VITALS: PULSE 64
[2019-02-25] MEDS: MethylPREDNISolone 40 mg Vial IVP SCH ×2 (09:30→18:27)
[2019-02-25] MEDS: Calcium-Vit D 500 mg-200 Units Tab UD PO SCH ×2 (09:30→18:27)
--- NOTE | 2019-02-25 14:10 | CP.PCM.PN ---
Subjective - Date & Time of Evaluation Date of Evaluation: 02/25/19 Time of Evaluation: 10:00 - Subjective Subjective: Pulmonary follow up, Covering Dr Choi The Patient was seen and examined at the bedside, Medical records reviewed, and management issues were discussed and formulated with the house staff. Events reviewed Objective - Vital Signs/Intake and Output Vital Signs (last 24 hours): Temp Pulse Resp BP Pulse Ox 98.1 F 64 20 111/66 100 02/25/19 07:00 02/25/19 08:50 02/25/19 07:00 02/25/19 07:00 02/25/19 07:00 Intake and Output: 02/25/19 02/25/19 06:59 18:59 Intake Total 524 Balance 524 - Medications Medications: Current Medications Acetaminophen/Codeine Phosphate (Tylenol/Codeine 300 Mg/30 Mg) 1 ea PO Q6 PRN PRN Reason: Pain, Mild (1-3) Albuterol/Ipratropium (Duoneb 3 Mg/0.5 Mg (3 Ml) Ud) 1 ml INH RQ4 PRN PRN Reason: Shortness of Breath Alprazolam (Xanax) 1 mg PO HS PRN PRN Reason: Anxiety Last Admin: 02/24/19 21:08 Dose: 1 mg Aspirin (Ecotrin) 81 mg PO DAILY [facility] Last Admin: 02/25/19 09:30 Dose: 81 mg Calcium/Vitamin D (Oyster Shell Calcium/Vitamin D 500 Mg-200 Iu) 1 tab PO BID [facility] Last Admin: 02/25/19 09:30 Dose: 1 tab Digoxin (Digoxin) 0.125 mg PO DAILY@1800 [facility] Last Admin: 02/24/19 17:41 Dose: 0.125 mg Duloxetine HCl (Cymbalta) 90 mg PO HS [facility] Last Admin: 02/24/19 21:01 Dose: 90 mg Folic Acid (Folic Acid) 1 mg PO DAILY [facility] Last Admin: 02/25/19 09:30 Dose: 1 mg Heparin Sodium (Porcine) (Heparin) 5,000 units SC Q12 [facility] Last Admin: 02/22/19 21:48 Dose: 5,000 units Hydroxychloroquine Sulfate (Plaquenil) 200 mg PO BID [facility]; Protocol Last Admin: 02/25/19 09:30 Dose: 200 mg Methotrexate (Methotrexate) 7.5 mg PO QWK [facility] Methylprednisolone (Solu-Medrol) 20 mg IVP BID [facility] Last Admin: 02/25/19 09:30 Dose: 20 mg Morphine Sulfate (Morphine) 4 mg IVP Q4 PRN PRN Reason: Pain, severe (8-10) Last Admin: 02/25/19 13:24 Dose: 4 mg Rosuvastatin Calcium (Crestor) [address] [facility] Last Admin: 02/24/19 21:01 Dose: 10 mg Trazodone HCl (Desyrel) [address] [facility] Last Admin: 02/24/19 21:02 Dose: 100 mg - Labs Labs: 02/25/19 07:26 02/25/19 07:26 PT 11.5 SECONDS (9.7-12.2) 02/23/19 08:09 INR 1.1 02/23/19 08:09 APTT 30 SECONDS (21-34) 02/23/19 08:09
[2019-02-25] MEDS: Digoxin 125 mcg (0.125 mg) Tab PO SCH (18:27)
[2019-02-25 18:29] VITALS: PULSE 90
--- NOTE | 2019-02-25 21:30 | CARDCATH ---
PROCEDURE DATE: 02/23/2019 PROCEDURES: 1. Left heart catheterization. 2. Coronary angiogram. CLINICAL INDICATIONS: 1. Unstable angina. 2. Hypertension. 3. Hyperlipidemia. 4. Diabetes. REFERRING PHYSICIAN: Kip Sesay DO. PERFORMING PHYSICIAN: Otilio Merrill MD. DESCRIPTION OF PROCEDURE: After informed consent, the patient was prepped and draped in the usual sterile fashion. Lidocaine 2% was given in the right wrist for local anesthesia. Using micropuncture technique, 6-[place] sheath was introduced into the right radial artery. A JR4 6-[place] diagnostic catheter was inserted into the left ventricle across the aortic valve. LVEDP measured. Contrast injected and LV angiogram was done. The catheter was pulled back across the aortic valve. Gradient across the aortic valve was measured. The same catheter engaged in the right coronary artery. Contrast injected and right coronary angiogram was done. Then, the catheter was exchanged to 6-[place] catheter. [place] catheter was engaged into the left main coronary artery. Contrast injected, and left coronary angiogram was done. The patient tolerated the procedure well. Postprocedure Terumo radial band applied to right wrist with excellent hemostasis. Radiological supervision and radiological interpretation of the coronary imaging was done. FINDINGS: 1. Left main coronary artery is patent. 2. Mid LAD has a 20% to 30% eccentric stenosis. Proximal and distal LAD is patent. Diagonal branches are patent. 3. Left circumflex has luminal irregularities. Otherwise left circumflex and obtuse marginal branches are patent. 4. Right coronary artery is dominant. Mid right coronary artery has a 50% to 60% eccentric stenosis. 5. Proximal and distal right coronary artery, PDA, PLV branches are patent. 6. LV ejection fraction is approximately 55%. No wall motion abnormality is noted. EDP is 18. No gradient across the aortic valve. IMPRESSION: 1. Nonobstructive coronaries as described above. Right coronary artery has a 50 to 60% eccentric stenosis. 2. Normal LV systolic function. 3. Recommend medical management including baby aspirin and statins for life. Otilio Merrill MD
== END 2019-02-25 19:55 | disposition home or self-care (01) ==
LOC: C.ER 16:40 → C.9E 19:52 → C.6T 21:22
PROVIDERS: ADMIT Family Medicine; ATTEND Family Medicine
DX: J44.1 Chronic obstructive pulmonary disease with (acute) exacerbation (principal); I25.110 Atherosclerotic heart disease of native coronary artery with unstable angina pectoris; I11.0 Hypertensive heart disease with heart failure; I50.9 Heart failure, unspecified; M06.9 Rheumatoid arthritis, unspecified; G89.29 Other chronic pain; M32.9 Systemic lupus erythematosus, unspecified; E10.9 Type 1 diabetes mellitus without complications; Z79.4 Long term (current) use of insulin; E66.9 Obesity, unspecified; E78.00 Pure hypercholesterolemia, unspecified; E78.5 Hyperlipidemia, unspecified; F31.9 Bipolar disorder, unspecified; G47.30 Sleep apnea, unspecified; M81.0 Age-related osteoporosis without current pathological fracture; Z87.891 Personal history of nicotine dependence; Z90.49 Acquired absence of other specified parts of digestive tract; Z82.5 Family history of asthma and other chronic lower respiratory diseases; Z83.3 Family history of diabetes mellitus
CPT/HCPCS: 36415; 71046; 80053; 82948; 83735; 83880; 84484; 85025; 85610; 85730; 93005; 93458; 97116; 97162; 97166; 97530; 99152; 99153; 99285; C1769; C1887; G0378; G8978; G8979; G8987; G8988; J1642; J1644; J1885; J2001; J2250; J2270; J2920; J3010; Q9967

== ENCOUNTER 2019-03-20 19:35 | Outpatient (CLI) | payer MEDICAID | END 2019-03-20 19:36 | disposition home or self-care (01) | LOC: C.SLEEP 19:36 | DX: G47.33 Obstructive sleep apnea (adult) (pediatric) (principal) ==

== ENCOUNTER 2019-04-05 19:47 | Inpatient (IN) | payer MEDICAID ==
[2019-04-05 19:47] VITALS: PULSE 90; BMI 42.7
--- NOTE | 2019-04-05 20:21 | C.PDOC ---
History Of Present Illness PGY-[address] Anderson Patient is 58 year old female with pmhx of SLE, RA, HTN, CHF, Asthma/ COPD presents to the ED for 2 days shortness of breath and coughing. States cough is productive, yellow/green phlegm. Admits to body aches of chronic nature. Denies recent sickness or sick contacts. Denies fever, chills, chest pain, n/v/d/c <Ciro Ivy - Last Filed: 04/05/19 21:41> History Per: Patient History/Exam Limitations: no limitations Onset/Duration Of Symptoms: Days Current Symptoms Are (Timing): Still Present <Ciro Ivy - Last Filed: 04/05/19 21:41> Severity: Moderate Pain Scale Rating Of: 4 Reports Recently: Seen In ED, Treated By A Physician, Hospitalized Recent travel outside of the [place]: No Additional History Per: Patient <Dakota Anderson - Last Filed: 04/05/19 21:47> Time Seen by Provider: 04/05/19 20:20 Chief Complaint (Nursing): Back Pain Past Medical History Vital Signs: Last Vital Signs Temp 98 F 04/05/19 20:08 Pulse 98 H 04/05/19 20:08 Resp 20 04/05/19 20:08 BP 138/68 04/05/19 20:08 Pulse Ox 95 04/05/19 20:21 - [facility] ASSISTANCE WITH RESPIRATORY VENTILATION, 24-96 HRS, CPAP (01/14/19) INSERTION OF INFUSION DEV INTO SUP VENA CAVA, PERC APPROACH (01/14/19) NASAL LACERATION SUTURE (11/07/13) NON-INVASIVE MECHANICAL VENTILATION (07/19/14) REMOVE VAD RESERVOIR FROM UP EXTREM SUBCU/FASCIA, OPEN (01/14/19) TETANUS TOXOID ADMINIST (11/07/13) - Social History Hx Tobacco Use: No Hx Alcohol Use: No Hx Substance Use: No <Ciro Ivy - Last Filed: 04/05/19 21:41> Vital Signs: Last Vital Signs Temp 98 F 04/05/19 20:08 Pulse 98 H 04/05/19 20:08 Resp 20 04/05/19 20:08 BP 138/68 04/05/19 20:08 Pulse Ox 95 04/05/19 20:08 Primary Care Provider: Isaac Willis - Medical History PMH: Anemia, Anxiety, Arthritis, Asthma, Bipolar Disorder, Cardia Arrhythmia, CHF, COPD, Depression, Emphysema, Gall Bladder Disease, HTN, Hypercholesterolemia, Osteoporosis, Peripheral Edema (no longer), Rheumatoid Arthritis, Sleep Apnea (c pap) Denies: Diabetes, Deep Vein Thrombosis, Hepatitis, Chronic Kidney Disease, Sexually Transmitted Disease Surgical History: Cholecystectomy, Tonsillectomy, - [facility] Procedures ASSISTANCE WITH RESPIRATORY VENTILATION, 24-96 HRS, CPAP (01/14/19) INSERTION OF INFUSION DEV INTO SUP VENA CAVA, PERC APPROACH (01/14/19) NASAL LACERATION SUTURE (11/07/13) NON-INVASIVE MECHANICAL VENTILATION (07/19/14) REMOVE VAD RESERVOIR FROM UP EXTREM SUBCU/FASCIA, OPEN (01/14/19) TETANUS TOXOID ADMINIST (11/07/13) Family History: States: Unknown Family Hx, [place] (Mother) - Social History Hx Tobacco Use: No Hx Alcohol Use: Yes Hx Substance Use: No - Immunization History Hx Tetanus Toxoid Vaccination: Yes Hx Influenza Vaccination: No Hx Pneumococcal Vaccination: Yes <Dakota Anderson - Last Filed: 04/05/19 21:47> Review Of Systems Constitutional: Negative for: Fever, Chills, Sweats, Weakness, Malaise Cardiovascular: Negative for: Chest Pain, Palpitations Respiratory: Positive for: Cough, Shortness of Breath, SOB with Excertion, Sputum (green/yellow), Wheezing. Negative for: Hemoptysis Gastrointestinal: Negative for: Nausea, Vomiting, Abdominal Pain, Diarrhea, Constipation, Hematochezia Genitourinary: Negative for: Dysuria, Frequency Musculoskeletal: Positive for: Arm Pain, Back Pain, Leg Pain Neurological: Negative for: Weakness, Numbness <Ciro Ivy - Last Filed: 04/05/19 21:41> Skin: Negative for: Rash Psych: Positive for: Anxiety <Dakota Anderson - Last Filed: 04/05/19 21:47> Physical Exam - Physical Exam Appears: Non-toxic, No Acute Distress Skin: Normal Color, No Rash Head: Atraumatic, Normacephalic Eye(s): bilateral: Normal Inspection, EOMI Tongue: Normal Appearing Throat: Normal Neck: Normal, Normal ROM Cardiovascular: Rhythm Regular Respiratory: No Rales, No Rhonchi, Wheezing (diffuse, bilateral wheezing ) Gastrointestinal/Abdominal: Bowel Sounds, Soft, No Tenderness Extremity: Swelling (LE pitting edema +1) Neurological/Psych: Oriented x3, Normal Speech, Normal Cognition, Normal Sensation, Normal Reflexes <Ciro Ivy - Last Filed: 04/05/19 21:41> ED Course And Treatment - Laboratory Results Result Diagrams: 04/05/19 21:12 04/05/19 21:12 <Ciro Ivy - Last Filed: 04/05/19 21:41> - Laboratory Results Result Diagrams: 04/05/19 21:12 04/05/19 21:12 ECG: Interpreted By Me, Viewed By Me ECG Rhythm: Sinus Rhythm (93), Nonspecific Changes O2 Sat by Pulse Oximetry: 95 Pulse Ox Interpretation: Normal - Radiology CXR: Interpreted by Me, Viewed By Me CXR Interpretation: Yes: Other (post r chest). No: Infiltrates, Fracture, Pnemothorax <Dakota Anderson - Last Filed: 04/05/19 21:47> Medical Decision Making Medical Decision Makin58 year old female with pmhx of COPD, asthma, CHF, SLE, RA, presenting with shortness of breath, productive coughing for the past two days, body aches, diffuse bilateral wheezing on exam, rule out lower tract resp infection vs asthma/COPD exarcerbation - EKG - CBC, CMP, coags - Chest Xray - ABG - Blood cultures - Duonebs <Ciro Ivy - Last Filed: 04/05/19 21:41> Disposition <Ciro Ivy - Last Filed: 04/05/19 21:41> Discussed With : Toby Gill Comment: accepted the pt on her service and took over the care at 9:46 PM Doctor Will See Patient In The: ED Counseled Patient/Family Regarding: Studies Performed, Diagnosis - Disposition Disposition Time: 20:21 - POA Present On Arrival: Poor Glycemic Control <Dakota Anderson - Last Filed: 04/05/19 21:47> - Disposition Disposition: HOSPITALIZED Condition: FAIR Forms: [facility] (Zambian) - Clinical Impression Clinical Impression: Pneumonia, Asthma exacerbation, Dyspnea Decision To Admit - Pt Status Changed To: Hospital Disposition Of: Inpatient - Admit Certification Admit to Inpatient:: After my assessment, the patient will require hospitalization for at least two midnights. This is because of the severity of symptoms shown, intensity of services needed, and/or the medical risk in this patient being treated as an outpatient. - InPatient: Physician Admission Certification: I certify that this patient requires 2 or more midnights of care for the following reason:: After my assessment, the patient will require hospitalization for at least two midnights. This is because of the severity of symptoms shown, intensity of services needed, and/or the medical risk in this patient being treated as an outpatient. - . Bed Request Type: Regular Admitting Physician: Toby Gill <Dakota Anderson - Last Filed: 04/05/19 21:47> - . Patient Diagnosis: Pneumonia, Asthma exacerbation, Dyspnea
[2019-04-05] MEDS: Albuterol-Ipratrop 3 mg / 0.5 (3 ml) UD IH SCH ×3 (21:00→21:45)
[2019-04-05 21:18] LABS: BASO # 0.1 K/uL (0.0-0.2); BASO % 0.5 % (0.0-2.0); EOS % 0.2 % (0.0-4.0); LYMPH # 1.4 K/uL (1.0-4.3); LYMPH % 7.5 % (20.0-40.0); MEAN CELL VOLUME 78.9 fL (81.0-99.0); MEAN CORPUSCULAR HEMOGLOBIN 25.5 pg (27.0-31.0); MEAN CORPUSCULAR HGB CONC 32.4 g/dL (33.0-37.0); MEAN PLATELET VOLUME 7.5 fL (7.2-11.7); MONO # 0.4 K/uL (0.0-0.8); NEUT # 16.6 K/uL (1.8-7.0); NEUT % 89.8 % (50.0-75.0); NRBC % 0.1 % (0.0-2.0); PLATELET COUNT 367 K/uL (130-400); RED CELL DISTRIBUTION WIDTH 17.2 % (11.5-14.5); WHITE BLOOD COUNT 18.5 K/uL (4.8-10.8)
[2019-04-05 21:19] LABS: ARTERIAL BLOOD GAS HCO3 27.5 mmol/L (21-28); ARTERIAL BLOOD GAS O2 SAT 92.8 % (95-98); ARTERIAL BLOOD GAS PCO2 47 mm/Hg (35-45); ARTERIAL BLOOD GAS PO2 62 mm/Hg (80-100); ARTERIAL BLOOD GAS TCO2 30.5 mmol/L (22-28)
[2019-04-05] MEDS ORDERED: Albuterol 0.083% Inhal Sol (2.5 mg/3 mL) UD ONE (21:25)
[2019-04-05 21:26] LABS: INR 1.2; PARTIAL THROMBOPLASTIN TIME 44.8 SECONDS (21-34); PROTHROMBIN TIME 12.9 SECONDS (9.7-12.2)
[2019-04-05] MEDS ORDERED: Ipratropium 0.02% Inhal Soln (0.5 mg/2.5 ml) UD IH ONE (21:26)
[2019-04-05] MEDS ORDERED: Piperacillin/Tazobact 3.375 GM in Sodium Chloride 100 ML IVPB STA (21:31)
[2019-04-05 21:40] LABS: ALB/GLOB RATIO 1.1 (1.0-2.1); ALBUMIN 4.1 g/dL (3.5-5.0); ALT/SGPT 19 U/L (9-52); AST/SGOT 25 U/L (14-36); BLOOD UREA NITROGEN 12 mg/dL (7-17); CALCIUM 9.2 mg/dl (8.6-10.4); GFR NON-AFRICAN AMERICAN > 60
[2019-04-05] MEDS ORDERED: Piperacillin/Tazobact 3.375 gm 100 ML IVPB ONE (21:46)
[2019-04-05 22:53] LABS: BANDS 2 % (0-2); LYMPHOCYTE 2 % (20-40); MONOCYTE 1 % (0-10); MYELOCYTE 1 % (0-0); NEUTROPHIL 94 % (50-75); PLATELET ESTIMATE NORMAL (NORMAL); TOTAL CELLS COUNTED 100
--- NOTE | 2019-04-06 00:15 | CP.PCM.HP ---
<Carloz Troncoso - Last Filed: 04/06/19 01:12> History of Present Illness - History of Present Illness History of Present Illness: Ms. Lee is a 58 year old female with a PMH lupus, rheumatoid arthritis, hypertension, COPD, depression/anxiety, diabetes, hyperlipidemia presents with a 2 day cough. Reports yellow sputum production and associated difficulty clearing the sputum. Reports SOB and GOMEZ but this is chronic. Pt was not treated for this yet, although she regularly follows up with Dr Willis and her specialist. Pt reported taking her pred taper as prescribed upon last dc. Denies chest pain, FC NV, blood in sputum, urine/stool changes, syncope, cyanosis, new medications. complains of chest tightness generalized pain. PMH: SLE, RA, HTN, CHF, COPD, depression/anxiety, DM, HLD Med: Breo-Ellipta 200-25 INH 1 puff daily, Digoxin 125mg po daily, Duloxtine 90mg po daily, hydroxychloroquine 200mg po daily, methotrexate 7.5mg po q7d, Calcium/Vit D po BID, Prednisone 10mg po daily, Crestor 10mg po HS, trazodone 100mg po daily, Ventolin q6 prn All: Dilaudid, Demerol - Code Blue PSxHx: IVC filter, tonsillectomy, , cholecystectomy. L chest Portacath -> switched to R chest Portacath 1 week ago FamHx: mom DM, asthma, arthritis, atherosclerosis. dad , cirrhosis SocHx: 3cigs/day x 28 years, social wine, former crack cocaine. on disability PMD: Dr. Willis Cardio: Dr. Merrill Pulm: Dr. Choi Rheum: Dr. Matos Present on Admission - Present on Admission Any Indicators Present on Admission: Yes History of DVT/PE: Yes Review of Systems - Review of Systems All systems: reviewed and no additional remarkable complaints except (as per HPI) Past Patient History - Infectious Disease Hx of Infectious Diseases: None - Past Medical History & Family History Past Medical History?: Yes - Past Social History Smoking Status: Former Smoker - CARDIAC Hx Cardia Arrhythmia: Yes Hx Congestive Heart Failure: Yes Hx Hypercholesterolemia: Yes Hx Hypertension: Yes Hx Peripheral Edema: Yes (no longer) - PULMONARY Hx Asthma: Yes Hx Chronic Obstructive Pulmonary Disease (COPD): Yes Hx Emphysema: Yes Hx Sleep Apnea: Yes (c pap) - HEENT Hx HEENT Problems: No - RENAL Hx Chronic Kidney Disease: No - ENDOCRINE/METABOLIC Hx Endocrine Disorders: Yes Hx Diabetes Mellitus Type 1: Yes Hx Systemic Lupus Erythematosus: Yes - HEMATOLOGICAL/ONCOLOGICAL Hx Anemia: Yes - INTEGUMENTARY Hx Dermatological Problems: No - MUSCULOSKELETAL/RHEUMATOLOGICAL Hx Arthritis: Yes Hx Osteoporosis: Yes Hx Rheumatoid Arthritis: Yes - GASTROINTESTINAL Hx Gall Bladder Disease: Yes - GENITOURINARY/GYNECOLOGICAL Hx Sexually Transmitted Disorders: No - PSYCHIATRIC Hx Anxiety: Yes Hx Bipolar Disorder: Yes Hx Depression: Yes Hx Substance Use: No - SURGICAL HISTORY Hx Cholecystectomy: Yes Hx Tonsillectomy: Yes - ANESTHESIA Hx Anesthesia: Yes Hx Anesthesia Reactions: No Hx Malignant Hyperthermia: No Meds Allergies/Adverse Reactions: Allergies Allergy/AdvReac Type Severity Reaction Status Date / Time hydromorphone HCl Allergy Severe ANAPHYLAXIS Verified 10/25/18 14:30 [From Dilaudid] meperidine HCl [From Demerol] Allergy Severe ANAPHYLAXIS Verified 10/25/18 14:30 Physical Exam - Constitutional Appears: Non-toxic, No Acute Distress - Head Exam Head Exam: ATRAUMATIC, NORMAL INSPECTION - Eye Exam Eye Exam: EOMI, Normal appearance. absent: Scleral icterus - ENT Exam ENT Exam: Mucous Membranes Moist - Neck Exam Additional comments: large neck diameter - Respiratory Exam Respiratory Exam: Wheezes (upper). absent: Rales, Rhonchi - Cardiovascular Exam Cardiovascular Exam: RRR, +S1, +S2 - GI/Abdominal Exam GI & Abdominal Exam: Soft. absent: Rigid, Tenderness - Neurological Exam Neurological exam: Alert, CN II-XII Intact, Oriented x3 - Psychiatric Exam Psychiatric exam: Normal Affect, Normal Mood - Skin Skin Exam: Dry, Normal Color, Warm Additional comments: Port on R chest, non erythematous Results - Vital Signs Recent Vital Signs: Last Vital Signs Temp 98.7 F 04/05/19 22:26 Pulse 91 H 04/05/19 22:26 Resp 20 04/05/19 22:26 BP 131/62 04/05/19 22:26 Pulse Ox 95 04/05/19 22:26 - Labs Result Diagrams: 04/05/19 21:12 04/05/19 21:12 Labs: Laboratory Results - last 24 hr 04/05/19 04/05/19 04/05/19 20:49 21:12 21:12 WBC 18.5 H RBC 4.30 Hgb 11.0 Hct 33.9 L MCV 78.9 L D MCH 25.5 L MCHC 32.4 L RDW 17.2 H Plt Count 367 D MPV 7.5 Neut % (Auto) 89.8 H Lymph % (Auto) 7.5 L Upson % (Auto) 2.0 Eos % (Auto) 0.2 Baso % (Auto) 0.5 Neut # (Auto) 16.6 H Lymph # (Auto) 1.4 Upson # (Auto) 0.4 Eos # (Auto) 0.0 Baso # (Auto) 0.1 Neutrophils % (Manual) 94 H Band Neutrophils % 2 Lymphocytes % (Manual) 2 L Monocytes % (Manual) 1 Myelocytes % 1 H Platelet Estimate Normal PT 12.9 H INR 1.2 APTT 44.8 H Puncture Site pCO2 pO2 HCO3 ABG pH ABG Total CO2 ABG O2 Saturation ABG Base Excess Wilman Test ABG Potassium Glucose Lactate Liter Flow Sodium Potassium Chloride Carbon Dioxide Anion Gap BUN Creatinine Est GFR ( Amer) Est GFR (Non-Af Amer) POC Glucose (mg/dL) 223 H Random Glucose Calcium Total Bilirubin AST ALT Alkaline Phosphatase Total Protein Albumin Globulin Albumin/Globulin Ratio Arterial Blood Potassium 04/05/19 04/05/19 21:12 21:17 WBC RBC Hgb Hct MCV MCH MCHC RDW Plt Count MPV Neut % (Auto) Lymph % (Auto) Upson % (Auto) Eos % (Auto) Baso % (Auto) Neut # (Auto) Lymph # (Auto) Upson # (Auto) Eos # (Auto) Baso # (Auto) Neutrophils % (Manual) Band Neutrophils % Lymphocytes % (Manual) Monocytes % (Manual) Myelocytes % Platelet Estimate PT INR APTT Puncture Site Rba pCO2 47 H pO2 62 L HCO3 27.5 ABG pH 7.40 ABG Total CO2 30.5 H ABG O2 Saturation 92.8 L ABG Base Excess 3.5 H Wilman Test Na ABG Potassium 4.5 Glucose 228 H Lactate 1.9 Liter Flow 0 Sodium 136 137.0 Potassium 4.6 Chloride 98 105.0 Carbon Dioxide 29 Anion Gap 14 BUN 12 Creatinine 0.7 Est GFR ( Amer) > 60 Est GFR (Non-Af Amer) > 60 POC Glucose (mg/dL) Random Glucose 227 H D Calcium 9.2 Total Bilirubin 0.4 AST 25 ALT 19 Alkaline Phosphatase 80 Total Protein 7.9 Albumin 4.1 Globulin 3.7 Albumin/Globulin Ratio 1.1 Arterial Blood Potassium 4.5 Assessment & Plan - Assessment and Plan (Free Text) Assessment: 58yo obese female PMH SLE, RA, HTN, CHF, COPD, depression/anxiety, DM, HLD Admitted for possible CHF/COPD exacerbation, vs CAP Shortness of Breath/Cough/GOMEZ COPD vs. CHF exacerbation vs. CAP-Acute - Zosy 3.375 IVPB q6 - Pred 20mg Daily - home Digoxin 0.125mg po daily - Duonebs INH rQ4 prn - Spiriva Daily - O2 via NC prn - f/u blood cultures and Troponin - Cardio consulted: Dr. Merrill f/u recs SLE RA-Chronic - home Hydroxychloroquine 200mg po BID - Percocet 1 tab BID prn - f/u C3, dsDNA and CRP DM - ISS Med - Last a1c 7.5, f/u AM Hyperlipidemia-Chronic - home Crestor 10mg po HS Anxiety/Depression-chronic - home Xanax 1mg po HS prn - home Cymbalta 90mg po HS - home Trazodone 100mg po HS PPx - DVT: ASA 81mg po daily, SCDs, Heparin 5000 SC Q12 - Diet: HHD 2g Na, Low Carb - home Calcium/VitD 1 tab po BID - home Folic Acid 1mg po daily CK PGY1 <Toby Gill N - Last Filed: 04/06/19 04:18> Results - Vital Signs Recent Vital Signs: Last Vital Signs Temp 98.6 F 04/06/19 00:00 Pulse 88 04/06/19 00:00 Resp 18 04/06/19 02:47 BP 144/82 04/06/19 01:11 Pulse Ox 95 04/06/19 00:00 - Labs Result Diagrams: 04/05/19 21:12 04/05/19 21:12 Labs: Laboratory Results - last 24 hr 04/05/19 04/05/19 04/05/19 20:49 21:12 21:12 WBC 18.5 H RBC 4.30 Hgb 11.0 Hct 33.9 L MCV 78.9 L D MCH 25.5 L MCHC 32.4 L RDW 17.2 H Plt Count 367 D MPV 7.5 Neut % (Auto) 89.8 H Lymph % (Auto) 7.5 L Upson % (Auto) 2.0 Eos % (Auto) 0.2 Baso % (Auto) 0.5 Neut # (Auto) 16.6 H Lymph # (Auto) 1.4 Upson # (Auto) 0.4 Eos # (Auto) 0.0 Baso # (Auto) 0.1 Neutrophils % (Manual) 94 H Band Neutrophils % 2 Lymphocytes % (Manual) 2 L Monocytes % (Manual) 1 Myelocytes % 1 H Platelet Estimate Normal PT 12.9 H INR 1.2 APTT 44.8 H Puncture Site pCO2 pO2 HCO3 ABG pH ABG Total CO2 ABG O2 Saturation ABG Base Excess Wilman Test ABG Potassium Glucose Lactate Liter Flow Sodium Potassium Chloride Carbon Dioxide Anion Gap BUN Creatinine Est GFR ( Amer) Est GFR (Non-Af Amer) POC Glucose (mg/dL) 223 H Random Glucose Calcium Total Bilirubin AST ALT Alkaline Phosphatase Troponin I Total Protein Albumin Globulin Albumin/Globulin Ratio Arterial Blood Potassium 04/05/19 04/05/19 04/06/19 21:12 21:17 01:12 WBC RBC Hgb Hct MCV MCH MCHC RDW Plt Count MPV Neut % (Auto) Lymph % (Auto) Upson % (Auto) Eos % (Auto) Baso % (Auto) Neut # (Auto) Lymph # (Auto) Upson # (Auto) Eos # (Auto) Baso # (Auto) Neutrophils % (Manual) Band Neutrophils % Lymphocytes % (Manual) Monocytes % (Manual) Myelocytes % Platelet Estimate PT INR APTT Puncture Site Rba pCO2 47 H pO2 62 L HCO3 27.5 ABG pH 7.40 ABG Total CO2 30.5 H ABG O2 Saturation 92.8 L ABG Base Excess 3.5 H Wilman Test Na ABG Potassium 4.5 Glucose 228 H Lactate 1.9 Liter Flow 0 Sodium 136 137.0 Potassium 4.6 Chloride 98 105.0 Carbon Dioxide 29 Anion Gap 14 BUN 12 Creatinine 0.7 Est GFR ( Amer) > 60 Est GFR (Non-Af Amer) > 60 POC Glucose (mg/dL) Random Glucose 227 H D Calcium 9.2 Total Bilirubin 0.4 AST 25 ALT 19 Alkaline Phosphatase 80 Troponin I < 0.0120 Total Protein 7.9 Albumin 4.1 Globulin 3.7 Albumin/Globulin Ratio 1.1 Arterial Blood Potassium 4.5 Attending/Attestation - Attestation I have fully participated in the care of the patient.: Yes I have reviewed all pertinent clinical information: Yes Notes (Text): 04/06/19 04:08 pt with multiple co-morbidities lupus rh arthritis DM depression c/o sob cough productive of yellowish phlegm and swelling of extremities for x2 days no fever elevated wbc . on prednisone.chest xray diffuse infiltrates bilaterally .P/e decreased breath sounds and some wheezes. a/p CHF /PNEUMONIA . bivent failure. lupus . copd /bronchitis. DM /hyperglycemia. depression anxiety.
[2019-04-06] MEDS ORDERED: Albuterol-Ipratrop 3 mg / 0.5 (3 ml) UD INH PRN (00:52)
[2019-04-06] MEDS ORDERED: Oxycodone/Acetaminophen 5/325 mg Tab PO PRN (01:10)
[2019-04-06] MEDS ORDERED: Glucagon Recombinant 1 mg Inj IM PRN (01:11)
[2019-04-06] MEDS ORDERED: Dextrose 50% SYRINGE Inj (50 ml) IV PRN (01:11)
[2019-04-06] MEDS ORDERED: Piperacill/Tazo 3.375gm in Dex 3.375 GM/50 ML BAG IVPB SCH (04:00)
[2019-04-06 07:41] LABS: BASO # 0.1 K/uL (0.0-0.2); BASO % 0.4 % (0.0-2.0); EOS # 0.1 K/uL (0.0-0.7); EOS % 0.7 % (0.0-4.0); HEMOGLOBIN 10.4 g/dL (11.0-16.0); LYMPH # 0.5 K/uL (1.0-4.3); LYMPH % 3.3 % (20.0-40.0); MEAN CELL VOLUME 79.3 fL (81.0-99.0); MEAN CORPUSCULAR HEMOGLOBIN 26.4 pg (27.0-31.0); MEAN CORPUSCULAR HGB CONC 33.2 g/dL (33.0-37.0); MEAN PLATELET VOLUME 7.9 fL (7.2-11.7); MONO # 0.8 K/uL (0.0-0.8); MONO % 4.7 % (0.0-10.0); NEUT # 15.3 K/uL (1.8-7.0); NEUT % 90.9 % (50.0-75.0); NRBC % 0.1 % (0.0-2.0); PLATELET COUNT 331 K/uL (130-400); RBC 3.94 Mil/uL (3.80-5.20); WHITE BLOOD COUNT 16.8 K/uL (4.8-10.8)
[2019-04-06 08:05] LABS: ALB/GLOB RATIO 1.1 (1.0-2.1); ALBUMIN 3.9 g/dL (3.5-5.0); ALT/SGPT 17 U/L (9-52); AST/SGOT 20 U/L (14-36); BLOOD UREA NITROGEN 14 mg/dL (7-17); GFR NON-AFRICAN AMERICAN > 60
[2019-04-06 08:10] VITALS: RESP 20
[2019-04-06] MEDS: (Novolin R) Insulin Human Regular 100 units/ml vial SC SCH ×4 (08:30→21:30)
[2019-04-06] MEDS ORDERED: Tiotropium 18 mcg Cap For Inhalation IH SCH (10:00)
[2019-04-06] MEDS ORDERED: Oxycodone/Acetaminophen 5/325 mg Tab PO SCH (10:00)
--- NOTE | 2019-04-06 10:19 | RAD ---
Chest x-ray single frontal view HISTORY: Shortness of breath. COMPARISON: 02/21/2019 Findings: Right chest wall port with tip extending to the right SVC. Moderate venous congestion. Bilateral hilar prominence. Patchy increased markings at the left base with small pleural effusion. Cardiomegaly. Enlarged ectatic aorta. Degenerative changes in the spine and shoulders. Impression: Right chest wall port with tip extending to the right SVC. Moderate venous congestion. Bilateral hilar prominence. Patchy increased markings at the left base with small pleural effusion. Cardiomegaly. Enlarged ectatic aorta.
--- NOTE | 2019-04-06 10:38 | CP.PCM.PN ---
<LisaTia L - Last Filed: 04/06/19 18:26> Subjective - Date & Time of Evaluation Date of Evaluation: 04/06/19 Time of Evaluation: 08:00 - Subjective Subjective: Resident Progress Note for Hospitalist Service Patient examined at bedside. Reports improvement in breathing. Admits to persistent cough. Denies fevers, chills, nausea, vomiting, chest pain, shortness of breath, abdominal pain, diarrhea, dysuria. Objective - Vital Signs/Intake and Output Vital Signs (last 24 hours): Temp Pulse Resp BP Pulse Ox 98.3 F 94 H 20 158/76 H 95 04/06/19 08:09 04/06/19 08:09 04/06/19 08:09 04/06/19 08:09 04/06/19 08:09 - Medications Medications: Current Medications Acetaminophen/Codeine Phosphate (Tylenol/Codeine 300 Mg/30 Mg) 1 ea PO Q12H PRN PRN Reason: Pain, severe (8-10) Albuterol/Ipratropium (Duoneb 3 Mg/0.5 Mg (3 Ml) Ud) 3 ml INH RQ6 TC Alprazolam (Xanax) 0.25 mg PO DAILY PRN PRN Reason: Anxiety Stop: 04/12/19 22:49 Aspirin (Aspirin Chewable) 81 mg PO DAILY [facility] Last Admin: 04/06/19 09:46 Dose: 81 mg Dextrose (Dextrose 50% Inj) 0 ml IV STAT PRN; Protocol PRN Reason: Hypoglycemia Protocol Dextrose (Glutose 15) 0 gm PO ONCE PRN; Protocol PRN Reason: Hypoglycemia Protocol Duloxetine HCl (Cymbalta) 90 mg PO HS [facility] Last Admin: 04/06/19 00:19 Dose: 90 mg Folic Acid (Folic Acid) 1 mg PO DAILY [facility] Last Admin: 04/06/19 09:46 Dose: 1 mg Glucagon (Glucagen Diagnostic Kit) 0 mg IM STAT PRN; Protocol PRN Reason: Hypoglycemia Protocol Heparin Sodium (Porcine) (Heparin) 5,000 units SC Q8 [facility] Last Admin: 04/06/19 05:45 Dose: 5,000 units Hydroxychloroquine Sulfate (Plaquenil) 200 mg PO BID [facility]; Protocol Last Admin: 04/06/19 09:46 Dose: 200 mg Dextrose (Dextrose 5% In Water 1000 Ml) 1,000 mls @ 0 mls/hr IV .Q0M PRN; Protocol PRN Reason: Hypoglycemia Protocol Insulin Human Isoph/Insulin Regular (Novolin 70/30 (70/30 Units/Ml) 10 Ml) 10 units SC ACB TC Insulin Human Isoph/Insulin Regular (Novolin 70/30 (70/30 Units/Ml) 10 Ml) 3 units SC ACD TC Insulin Human Regular (Novolin R) 0 unit SC ACHS TC; Protocol Last Admin: 04/06/19 08:30 Dose: 4 units Methylprednisolone (Solu-Medrol) 40 mg IVP Q8H TC Rosuvastatin Calcium (Crestor) 10 mg PO HS TC Last Admin: 04/06/19 00:20 Dose: 10 mg Trazodone HCl (Desyrel) 100 mg PO HS TC Last Admin: 04/06/19 00:20 Dose: 100 mg - Labs Labs: 04/06/19 07:29 04/06/19 07:29 PT 12.9 SECONDS (9.7-12.2) H 04/05/19 21:12 INR 1.2 04/05/19 21:12 APTT 44.8 SECONDS (21-34) H 04/05/19 21:12 - Constitutional Appears: Non-toxic, No Acute Distress - Head Exam Head Exam: ATRAUMATIC, NORMAL INSPECTION - Eye Exam Eye Exam: EOMI, Normal appearance - ENT Exam ENT Exam: Mucous Membranes Moist - Respiratory Exam Respiratory Exam: Wheezes (upper). absent: Rales, Rhonchi, Respiratory Distress, Accessory Muscle Use - Cardiovascular Exam Cardiovascular Exam: RRR, +S1, +S2. absent: Tachycardia - GI/Abdominal Exam GI & Abdominal Exam: Soft. absent: Rigid, Tenderness - Neurological Exam Neurological exam: Alert, CN II-XII Intact, Oriented x3 - Psychiatric Exam Psychiatric exam: Normal Affect, Normal Mood - Skin Skin Exam: Dry, Normal Color, Warm Additional comments: Port on R chest, non erythematous Assessment and Plan - Assessment and Plan (Free Text) Assessment: Patient is a 58 year old obese female with past medical history of COPD on home O2, T1DM, hyperlipidemia, SLE, RA, HTN, depression/anxiety admitted for acute exacerbation of COPD Plan: Acute exacerbation of COPD - CXR shows modrate venous congestion, bilateral hilar prominence, cardiomegaly - Tylenol/codeine PRN - Tessalon perles - Duonebs Q6 - Solu-medrol 40 mg IV Q8H - Zosyn 3.375 one dose given in ED - O2 via NC prn - procal low - As per cardiology recs patient is not in CHF exacerbation - Patient underwent cardiac cath on 02/23/19 * Non Obstructive Coronaries * Normal EF - Echo (01/11/19): poor echo window, normal LV wall thickness/function/wall motion. LVEF 62.8%. No vegetations. - BNP: 142 - Trop: negative x1 SLE, RA, chronic - home Hydroxychloroquine 200mg po BID - CRP elevated T1DM, chronic - Novolin 10 units SC ACB, 3 units SC ACD - ISS, Accuchecks - Hgba1c 7.4 Hyperlipidemia, chronic - home Crestor 10 mg PO HS Anxiety/depression, chronic - home Xanax 1mg po HS prn discontinued - home Cymbalta 90mg po HS - home Trazodone 100mg po HS PPX - SCDs, Heparin 5000 SC Q8 Dispo: pending clinical improvement, plan for discharge 04/07/19, set up [facility] home visiting nurse Case reviewed with Dr. Kip Gonzalez PGY-1 <Kip Sesay - Last Filed: 04/10/19 12:52> Objective - Vital Signs/Intake and Output Vital Signs (last 24 hours): Temp Pulse Resp BP Pulse Ox 97.9 F 96 H 20 169/77 H 95 04/07/19 15:00 04/07/19 15:00 04/07/19 15:00 04/07/19 15:00 04/07/19 15:00 - Labs Labs: 04/07/19 06:47 04/07/19 06:47 PT 12.9 SECONDS (9.7-12.2) H 04/05/19 21:12 INR 1.2 04/05/19 21:12 APTT 44.8 SECONDS (21-34) H 04/05/19 21:12 Attending/Attestation - Attestation I have personally seen and examined this patient.: Yes I have fully participated in the care of the patient.: Yes I have reviewed all pertinent clinical information, including history, physical exam and plan: Yes Notes (Text): 04/10/19 12:52 This is a late entry. Care of this patient was gone over in detail with resident Dr. Melisa Gonzalez. Kip Sesay D.O.
[2019-04-06] MEDS: (Novolin 70/30) NPH/Regular 70/30 Units/ml 10 ml vial SC SCH ×2 (10:55→17:24)
[2019-04-06] MEDS: Acetaminophen-Codeine 300/30 mg Tab PO PRN (10:59)
[2019-04-06 11:56] LABS: ANISOCYTOSIS SLIGHT; HYPOCHROMIC SLIGHT; LYMPHOCYTE 3 % (20-40); MONOCYTE 5 % (0-10); NEUTROPHIL 92 % (50-75); PLATELET ESTIMATE NORMAL (NORMAL); POLYCHROMIC SLIGHT; TOTAL CELLS COUNTED 100
[2019-04-06 11:57] LABS: MICROCYTOSIS SLIGHT
[2019-04-06] MEDS: MethylPREDNISolone 40 mg Vial IVP SCH ×2 (14:39→21:21)
[2019-04-06] MEDS: Albuterol-Ipratrop 3 mg / 0.5 (3 ml) UD INH SCH ×2 (14:41→20:10)
[2019-04-06] MEDS ORDERED: Digoxin 125 mcg (0.125 mg) Tab PO SCH (18:00)
--- NOTE | 2019-04-06 18:07 | CP.PCM.CON ---
<Michael Arevalo - Last Filed: 04/06/19 18:04> History of Present Illness - History of Present Illness History of Present Illness: PGY2 Cardiology Consult Note for Dr. Merrill Reason for Consult: Dyspnea on Exertion Patient is a 58 year old female with a PMH lupus, rheumatoid arthritis, hypertension, COPD, depression/anxiety, diabetes, hyperlipidemia presented to the hospital with a complaint of a cough and worsening shortness of breath for 2 days. Patient recently was admitted for similar symptoms last month and underwent a cardiac cath which showed Non Obstructive Coronaries with a normal EF on 02/23/19. She reports that she has been coughing and wheezing and feels like her COPD is getting worse. She is still smoking. Denies any chest pain, lightheadedness, dizziness, palpitation, fevers, chills, nausea, vomiting, numbness or tingling. PMD: Dr. Willis PMH: SLE, RA, HTN, CHF, COPD, depression/anxiety, DM, HLD PSH: IVC filter, tonsillectomy, , cholecystectomy. L chest Portacath -> switched to R chest Portacath 1 week ago Family: mom DM, asthma, arthritis, atherosclerosis. dad , cirrhosis Social: 3cigs/day x 28 years, social wine, former crack cocaine. on disability All: Dilaudid, Demerol - Code Blue Review of Systems - Review of Systems All systems: reviewed and no additional remarkable complaints except (as per HPI) Past Patient History - Infectious Disease Hx of Infectious Diseases: None - Past Medical History & Family History Past Medical History?: Yes - Past Social History Smoking Status: Former Smoker - CARDIAC Hx Cardiac Disorders: Yes Hx Cardia Arrhythmia: Yes Hx Congestive Heart Failure: Yes Hx Hypercholesterolemia: Yes Hx Hypertension: Yes Hx Peripheral Edema: Yes (no longer) - PULMONARY Hx Respiratory Disorders: Yes Hx Asthma: Yes Hx Chronic Obstructive Pulmonary Disease (COPD): Yes Hx Emphysema: Yes Hx Sleep Apnea: Yes (c pap) - NEUROLOGICAL Hx Neurological Disorder: No - HEENT Hx HEENT Problems: No - RENAL Hx Chronic Kidney Disease: No - ENDOCRINE/METABOLIC Hx Endocrine Disorders: Yes Hx Diabetes Mellitus Type 1: Yes Hx Systemic Lupus Erythematosus: Yes - HEMATOLOGICAL/ONCOLOGICAL Hx Blood Disorders: Yes Hx Anemia: Yes - INTEGUMENTARY Hx Dermatological Problems: No - MUSCULOSKELETAL/RHEUMATOLOGICAL Hx Falls: No - GASTROINTESTINAL Hx Gastrointestinal Disorders: Yes Hx Gall Bladder Disease: Yes - GENITOURINARY/GYNECOLOGICAL Hx Genitourinary Disorders: No Hx Sexually Transmitted Disorders: No - PSYCHIATRIC Hx Substance Use: No - SURGICAL HISTORY Hx Surgeries: Yes Hx Cholecystectomy: Yes Hx Tonsillectomy: Yes - ANESTHESIA Hx Anesthesia: Yes Hx Anesthesia Reactions: No Hx Malignant Hyperthermia: No Has any member of the family had a problem w/ anesthesia?: No Meds Allergies/Adverse Reactions: Allergies Allergy/AdvReac Type Severity Reaction Status Date / Time hydromorphone HCl Allergy Severe ANAPHYLAXIS Verified 10/25/18 14:30 [From Dilaudid] meperidine HCl [From Demerol] Allergy Severe ANAPHYLAXIS Verified 10/25/18 14:30 - Medications Medications: Current Medications Acetaminophen/Codeine Phosphate (Tylenol/Codeine 300 Mg/30 Mg) 1 ea PO Q12H PRN PRN Reason: Pain, severe (8-10) Last Admin: 04/06/19 10:59 Dose: 1 ea Albuterol/Ipratropium (Duoneb 3 Mg/0.5 Mg (3 Ml) Ud) 3 ml INH RQ6 [facility] Last Admin: 04/06/19 14:41 Dose: Not Given Alprazolam (Xanax) 0.25 mg PO DAILY PRN PRN Reason: Anxiety Stop: 04/12/19 22:49 Aspirin (Aspirin Chewable) 81 mg PO DAILY [facility] Last Admin: 04/06/19 09:46 Dose: 81 mg Dextrose (Dextrose 50% Inj) 0 ml IV STAT PRN; Protocol PRN Reason: Hypoglycemia Protocol Dextrose (Glutose 15) 0 gm PO ONCE PRN; Protocol PRN Reason: Hypoglycemia Protocol Duloxetine HCl (Cymbalta) 90 mg PO HS [facility] Last Admin: 04/06/19 00:19 Dose: 90 mg Folic Acid (Folic Acid) 1 mg PO DAILY [facility] Last Admin: 04/06/19 09:46 Dose: 1 mg Glucagon (Glucagen Diagnostic Kit) 0 mg IM STAT PRN; Protocol PRN Reason: Hypoglycemia Protocol Heparin Sodium (Porcine) (Heparin) 5,000 units SC Q8 [facility] Last Admin: 04/06/19 14:38 Dose: 5,000 units Hydroxychloroquine Sulfate (Plaquenil) 200 mg PO BID [facility]; Protocol Last Admin: 04/06/19 17:24 Dose: 200 mg Dextrose (Dextrose 5% In Water 1000 Ml) 1,000 mls @ 0 mls/hr IV .Q0M PRN; Protocol PRN Reason: Hypoglycemia Protocol Insulin Human Isoph/Insulin Regular (Novolin 70/30 (70/30 Units/Ml) 10 Ml) 10 units SC ACB [facility] Last Admin: 04/06/19 10:55 Dose: 10 units Insulin Human Isoph/Insulin Regular (Novolin 70/30 (70/30 Units/Ml) 10 Ml) 3 units SC ACD [facility] Last Admin: 04/06/19 17:24 Dose: 3 units Insulin Human Regular (Novolin R) 0 unit SC ACHS TC; Protocol Last Admin: 04/06/19 17:24 Dose: 3 units Methylprednisolone (Solu-Medrol) 40 mg IVP Q8H [facility] Last Admin: 04/06/19 14:39 Dose: 40 mg Rosuvastatin Calcium (Crestor) 10 mg PO HS [facility] Last Admin: 04/06/19 00:20 Dose: 10 mg Trazodone HCl (Desyrel) 100 mg PO HS [facility] Last Admin: 04/06/19 00:20 Dose: 100 mg Physical Exam - Constitutional Appears: Non-toxic, No Acute Distress, Older Than Stated Age - Head Exam Head Exam: ATRAUMATIC, NORMOCEPHALIC - Eye Exam Eye Exam: Normal appearance - ENT Exam ENT Exam: Mucous Membranes Moist - Respiratory Exam Respiratory Exam: Wheezes (scattered throughout b/l), NORMAL BREATHING PATTERN. absent: Accessory Muscle Use, Rales, Rhonchi, Respiratory Distress - Cardiovascular Exam Cardiovascular Exam: REGULAR RHYTHM, +S1, +S2 - GI/Abdominal Exam GI & Abdominal Exam: Soft. absent: Distended, Firm, Guarding, Rigid, Tenderness - Extremities Exam Extremities exam: Positive for: pedal pulses present. Negative for: calf tenderness - Neurological Exam Neurological exam: Alert, Oriented x3 - Psychiatric Exam Psychiatric exam: Normal Affect, Normal Mood - Skin Skin Exam: Dry, Warm Results - Vital Signs Recent Vital Signs: Last Vital Signs Temp 98.3 F 04/06/19 08:09 Pulse 94 H 04/06/19 08:09 Resp 20 04/06/19 08:09 BP 158/76 H 04/06/19 08:09 Pulse Ox 95 04/06/19 08:09 - Labs Result Diagrams: 04/06/19 07:29 04/06/19 07:29 Labs: Laboratory Results - last 24 hr 04/05/19 04/05/19 04/05/19 20:49 21:12 21:12 WBC 18.5 H RBC 4.30 Hgb 11.0 Hct 33.9 L MCV 78.9 L D MCH 25.5 L MCHC 32.4 L RDW 17.2 H Plt Count 367 D MPV 7.5 Neut % (Auto) 89.8 H Lymph % (Auto) 7.5 L Arthur % (Auto) 2.0 Eos % (Auto) 0.2 Baso % (Auto) 0.5 Neut # (Auto) 16.6 H Lymph # (Auto) 1.4 Arthur # (Auto) 0.4 Eos # (Auto) 0.0 Baso # (Auto) 0.1 Neutrophils % (Manual) 94 H Band Neutrophils % 2 Lymphocytes % (Manual) 2 L Monocytes % (Manual) 1 Myelocytes % 1 H Platelet Estimate Normal Polychromasia Hypochromasia (manual) Anisocytosis (manual) Microcytosis (manual) PT 12.9 H INR 1.2 APTT 44.8 H Puncture Site pCO2 pO2 HCO3 ABG pH ABG Total CO2 ABG O2 Saturation ABG Base Excess Wilman Test ABG Potassium Glucose Lactate Liter Flow Sodium Potassium Chloride Carbon Dioxide Anion Gap BUN Creatinine Est GFR ( Amer) Est GFR (Non-Af Amer) POC Glucose (mg/dL) 223 H Random Glucose Hemoglobin A1c Calcium Phosphorus Magnesium Total Bilirubin AST ALT Alkaline Phosphatase Troponin I C-Reactive Protein NT-Pro-B Natriuret Pep Total Protein Albumin Globulin Albumin/Globulin Ratio Procalcitonin Arterial Blood Potassium Complement C3 04/05/19 04/05/19 04/06/19 21:12 21:17 01:12 WBC RBC Hgb Hct MCV MCH MCHC RDW Plt Count MPV Neut % (Auto) Lymph % (Auto) Arthur % (Auto) Eos % (Auto) Baso % (Auto) Neut # (Auto) Lymph # (Auto) Arthur # (Auto) Eos # (Auto) Baso # (Auto) Neutrophils % (Manual) Band Neutrophils % Lymphocytes % (Manual) Monocytes % (Manual) Myelocytes % Platelet Estimate Polychromasia Hypochromasia (manual) Anisocytosis (manual) Microcytosis (manual) PT INR APTT Puncture Site Rba pCO2 47 H pO2 62 L HCO3 27.5 ABG pH 7.40 ABG Total CO2 30.5 H ABG O2 Saturation 92.8 L ABG Base Excess 3.5 H Wilman Test Na ABG Potassium 4.5 Glucose 228 H Lactate 1.9 Liter Flow 0 Sodium 136 137.0 Potassium 4.6 Chloride 98 105.0 Carbon Dioxide 29 Anion Gap 14 BUN 12 Creatinine 0.7 Est GFR ( Amer) > 60 Est GFR (Non-Af Amer) > 60 POC Glucose (mg/dL) Random Glucose 227 H D Hemoglobin A1c Calcium 9.2 Phosphorus Magnesium Total Bilirubin 0.4 AST 25 ALT 19 Alkaline Phosphatase 80 Troponin I < 0.0120 C-Reactive Protein NT-Pro-B Natriuret Pep Total Protein 7.9 Albumin 4.1 Globulin 3.7 Albumin/Globulin Ratio 1.1 Procalcitonin Arterial Blood Potassium 4.5 Complement C3 04/06/19 04/06/19 04/06/19 07:29 07:29 07:29 WBC 16.8 H RBC 3.94 Hgb 10.4 L Hct 31.2 L MCV 79.3 L MCH 26.4 L MCHC 33.2 RDW 17.0 H Plt Count 331 MPV 7.9 Neut % (Auto) 90.9 H Lymph % (Auto) 3.3 L Arthur % (Auto) 4.7 Eos % (Auto) 0.7 Baso % (Auto) 0.4 Neut # (Auto) 15.3 H Lymph # (Auto) 0.5 L Arthur # (Auto) 0.8 Eos # (Auto) 0.1 Baso # (Auto) 0.1 Neutrophils % (Manual) 92 H Band Neutrophils % Lymphocytes % (Manual) 3 L Monocytes % (Manual) 5 Myelocytes % Platelet Estimate Normal Polychromasia Slight Hypochromasia (manual) Slight Anisocytosis (manual) Slight Microcytosis (manual) Slight PT INR APTT Puncture Site pCO2 pO2 HCO3 ABG pH ABG Total CO2 ABG O2 Saturation ABG Base Excess Wilman Test ABG Potassium Glucose Lactate Liter Flow Sodium 136 Potassium 4.5 Chloride 96 L Carbon Dioxide 32 H Anion Gap 13 BUN 14 Creatinine 0.9 Est GFR ( Amer) > 60 Est GFR (Non-Af Amer) > 60 POC Glucose (mg/dL) Random Glucose 262 H Hemoglobin A1c Calcium 9.0 Phosphorus 3.2 Magnesium 2.1 Total Bilirubin 0.5 AST 20 ALT 17 Alkaline Phosphatase 71 Troponin I C-Reactive Protein 46.70 H NT-Pro-B Natriuret Pep Total Protein 7.5 Albumin 3.9 Globulin 3.6 Albumin/Globulin Ratio 1.1 Procalcitonin 0.13 L Arterial Blood Potassium Complement C3 04/06/19 04/06/19 04/06/19 07:29 07:29 07:29 WBC RBC Hgb Hct MCV MCH MCHC RDW Plt Count MPV Neut % (Auto) Lymph % (Auto) Arthur % (Auto) Eos % (Auto) Baso % (Auto) Neut # (Auto) Lymph # (Auto) Arthur # (Auto) Eos # (Auto) Baso # (Auto) Neutrophils % (Manual) Band Neutrophils % Lymphocytes % (Manual) Monocytes % (Manual) Myelocytes % Platelet Estimate Polychromasia Hypochromasia (manual) Anisocytosis (manual) Microcytosis (manual) PT INR APTT Puncture Site pCO2 pO2 HCO3 ABG pH ABG Total CO2 ABG O2 Saturation ABG Base Excess Wilman Test ABG Potassium Glucose Lactate Liter Flow Sodium Potassium Chloride Carbon Dioxide Anion Gap BUN Creatinine Est GFR ( Amer) Est GFR (Non-Af Amer) POC Glucose (mg/dL) Random Glucose Hemoglobin A1c 7.4 H Calcium Phosphorus Magnesium Total Bilirubin AST ALT Alkaline Phosphatase Troponin I C-Reactive Protein NT-Pro-B Natriuret Pep 142 Total Protein Albumin Globulin Albumin/Globulin Ratio Procalcitonin Arterial Blood Potassium Complement C3 154.0 04/06/19 04/06/19 11:58 16:09 WBC RBC Hgb Hct MCV MCH MCHC RDW Plt Count MPV Neut % (Auto) Lymph % (Auto) Arthur % (Auto) Eos % (Auto) Baso % (Auto) Neut # (Auto) Lymph # (Auto) Arthur # (Auto) Eos # (Auto) Baso # (Auto) Neutrophils % (Manual) Band Neutrophils % Lymphocytes % (Manual) Monocytes % (Manual) Myelocytes % Platelet Estimate Polychromasia Hypochromasia (manual) Anisocytosis (manual) Microcytosis (manual) PT INR APTT Puncture Site pCO2 pO2 HCO3 ABG pH ABG Total CO2 ABG O2 Saturation ABG Base Excess Wilman Test ABG Potassium Glucose Lactate Liter Flow Sodium Potassium Chloride Carbon Dioxide Anion Gap BUN Creatinine Est GFR ( Amer) Est GFR (Non-Af Amer) POC Glucose (mg/dL) 233 H 247 H Random Glucose Hemoglobin A1c Calcium Phosphorus Magnesium Total Bilirubin AST ALT Alkaline Phosphatase Troponin I C-Reactive Protein NT-Pro-B Natriuret Pep Total Protein Albumin Globulin Albumin/Globulin Ratio Procalcitonin Arterial Blood Potassium Complement C3 Assessment & Plan - Assessment and Plan (Free Text) Plan: 58 year old female with aPMHx of HTN, arrhythmia, COPD, hypercholesterolemia, and sleep apnea was admitted for shortness of breath. Shortness of Breath Hx of CHF COPD Exacerbation - This is not a CHF exacerbation, SOB is likely secondary to COPD exacerbation. - Patient underwent cardiac cath on 02/23/19 * Non Obstructive Coronaries * Normal EF - Echo (01/11/19): poor echo window, normal LV wall thickness/function/wall motion. LVEF 62.8%. No vegetations. - BNP: 142 - Trop: negative x1 - Continue current management - Management for COPD exacerbation as per primary team Case discussed with Dr. Merrill <Otilio Merrill - Last Filed: 04/07/19 03:57> Meds - Medications Medications: Current Medications Acetaminophen/Codeine Phosphate (Tylenol/Codeine 300 Mg/30 Mg) 1 ea PO Q12H PRN PRN Reason: Pain, severe (8-10) Last Admin: 04/07/19 01:58 Dose: 1 ea Albuterol/Ipratropium (Duoneb 3 Mg/0.5 Mg (3 Ml) Ud) 3 ml INH RQ6 [facility] Last Admin: 04/07/19 01:14 Dose: 3 ml Alprazolam (Xanax) 0.25 mg PO DAILY PRN PRN Reason: Anxiety Stop: 04/12/19 22:49 Last Admin: 04/07/19 01:59 Dose: 0.25 mg Aspirin (Aspirin Chewable) 81 mg PO DAILY [facility] Last Admin: 04/06/19 09:46 Dose: 81 mg Benzonatate (Tessalon Perles) 100 mg PO TID [facility] Dextrose (Dextrose 50% Inj) 0 ml IV STAT PRN; Protocol PRN Reason: Hypoglycemia Protocol Dextrose (Glutose 15) 0 gm PO ONCE PRN; Protocol PRN Reason: Hypoglycemia Protocol Duloxetine HCl (Cymbalta) 90 mg PO HS [facility] Last Admin: 04/06/19 21:22 Dose: 90 mg Folic Acid (Folic Acid) 1 mg PO DAILY [facility] Last Admin: 04/06/19 09:46 Dose: 1 mg Glucagon (Glucagen Diagnostic Kit) 0 mg IM STAT PRN; Protocol PRN Reason: Hypoglycemia Protocol Heparin Sodium (Porcine) (Heparin) 5,000 units SC Q8 [facility] Last Admin: 04/06/19 21:34 Dose: 5,000 units Hydroxychloroquine Sulfate (Plaquenil) 200 mg PO BID [facility]; Protocol Last Admin: 04/06/19 17:24 Dose: 200 mg Dextrose (Dextrose 5% In Water 1000 Ml) 1,000 mls @ 0 mls/hr IV .Q0M PRN; Protocol PRN Reason: Hypoglycemia Protocol Insulin Human Isoph/Insulin Regular (Novolin 70/30 (70/30 Units/Ml) 10 Ml) 10 units SC ACB [facility] Last Admin: 04/06/19 10:55 Dose: 10 units Insulin Human Isoph/Insulin Regular (Novolin 70/30 (70/30 Units/Ml) 10 Ml) 3 units SC ACD [facility] Last Admin: 04/06/19 17:24 Dose: 3 units Insulin Human Regular (Novolin R) 0 unit SC ACHS [facility]; Protocol Methylprednisolone (Solu-Medrol) 40 mg IVP Q8H [facility] Last Admin: 04/06/19 21:21 Dose: 40 mg Rosuvastatin Calcium (Crestor) 10 mg PO HS [facility] Last Admin: 04/06/19 21:20 Dose: 10 mg Trazodone HCl (Desyrel) 100 mg PO HS [facility] Last Admin: 04/06/19 21:20 Dose: 100 mg Results - Vital Signs Recent Vital Signs: Last Vital Signs Temp 98.3 F 04/06/19 08:09 Pulse 94 H 04/06/19 20:12 Resp 20 04/06/19 08:09 BP 158/76 H 04/06/19 08:09 Pulse Ox 95 04/06/19 08:09 - Labs Result Diagrams: 04/06/19 07:29 04/06/19 07:29 Labs: Laboratory Results - last 24 hr 04/06/19 04/06/19 04/06/19 07:29 07:29 07:29 WBC 16.8 H RBC 3.94 Hgb 10.4 L Hct 31.2 L MCV 79.3 L MCH 26.4 L MCHC 33.2 RDW 17.0 H Plt Count 331 MPV 7.9 Neut % (Auto) 90.9 H Lymph % (Auto) 3.3 L Arthur % (Auto) 4.7 Eos % (Auto) 0.7 Baso % (Auto) 0.4 Neut # (Auto) 15.3 H Lymph # (Auto) 0.5 L Arthur # (Auto) 0.8 Eos # (Auto) 0.1 Baso # (Auto) 0.1 Neutrophils % (Manual) 92 H Lymphocytes % (Manual) 3 L Monocytes % (Manual) 5 Platelet Estimate Normal Polychromasia Slight Hypochromasia (manual) Slight Anisocytosis (manual) Slight Microcytosis (manual) Slight Sodium 136 Potassium 4.5 Chloride 96 L Carbon Dioxide 32 H Anion Gap 13 BUN 14 Creatinine 0.9 Est GFR ( Amer) > 60 Est GFR (Non-Af Amer) > 60 POC Glucose (mg/dL) Random Glucose 262 H Hemoglobin A1c Calcium 9.0 Phosphorus 3.2 Magnesium 2.1 Total Bilirubin 0.5 AST 20 ALT 17 Alkaline Phosphatase 71 C-Reactive Protein 46.70 H NT-Pro-B Natriuret Pep Total Protein 7.5 Albumin 3.9 Globulin 3.6 Albumin/Globulin Ratio 1.1 Procalcitonin 0.13 L Urine Color Urine Clarity Urine pH Ur Specific Humphrey Urine Protein Urine Glucose (UA) Urine Ketones Urine Blood Urine Nitrate Urine Bilirubin Urine Urobilinogen Ur Leukocyte Esterase Urine WBC (Auto) Urine RBC (Auto) Ur Squamous Epith Cells Hyaline Casts Complement C3 04/06/19 04/06/19 04/06/19 07:29 07:29 07:29 WBC RBC Hgb Hct MCV MCH MCHC RDW Plt Count MPV Neut % (Auto) Lymph % (Auto) Arthur % (Auto) Eos % (Auto) Baso % (Auto) Neut # (Auto) Lymph # (Auto) Arthur # (Auto) Eos # (Auto) Baso # (Auto) Neutrophils % (Manual) Lymphocytes % (Manual) Monocytes % (Manual) Platelet Estimate Polychromasia Hypochromasia (manual) Anisocytosis (manual) Microcytosis (manual) Sodium Potassium Chloride Carbon Dioxide Anion Gap BUN Creatinine Est GFR ( Amer) Est GFR (Non-Af Amer) POC Glucose (mg/dL) Random Glucose Hemoglobin A1c 7.4 H Calcium Phosphorus Magnesium Total Bilirubin AST ALT Alkaline Phosphatase C-Reactive Protein NT-Pro-B Natriuret Pep 142 Total Protein Albumin Globulin Albumin/Globulin Ratio Procalcitonin Urine Color Urine Clarity Urine pH Ur Specific Humphrey Urine Protein Urine Glucose (UA) Urine Ketones Urine Blood Urine Nitrate Urine Bilirubin Urine Urobilinogen Ur Leukocyte Esterase Urine WBC (Auto) Urine RBC (Auto) Ur Squamous Epith Cells Hyaline Casts Complement C3 154.0 04/06/19 04/06/19 04/06/19 11:58 16:09 21:20 WBC RBC Hgb Hct MCV MCH MCHC RDW Plt Count MPV Neut % (Auto) Lymph % (Auto) Arthur % (Auto) Eos % (Auto) Baso % (Auto) Neut # (Auto) Lymph # (Auto) Arthur # (Auto) Eos # (Auto) Baso # (Auto) Neutrophils % (Manual) Lymphocytes % (Manual) Monocytes % (Manual) Platelet Estimate Polychromasia Hypochromasia (manual) Anisocytosis (manual) Microcytosis (manual) Sodium Potassium Chloride Carbon Dioxide Anion Gap BUN Creatinine Est GFR ( Amer) Est GFR (Non-Af Amer) POC Glucose (mg/dL) 233 H 247 H 458 H* Random Glucose Hemoglobin A1c Calcium Phosphorus Magnesium Total Bilirubin AST ALT Alkaline Phosphatase C-Reactive Protein NT-Pro-B Natriuret Pep Total Protein Albumin Globulin Albumin/Globulin Ratio Procalcitonin Urine Color Urine Clarity Urine pH Ur Specific Humphrey Urine Protein Urine Glucose (UA) Urine Ketones Urine Blood Urine Nitrate Urine Bilirubin Urine Urobilinogen Ur Leukocyte Esterase Urine WBC (Auto) Urine RBC (Auto) Ur Squamous Epith Cells Hyaline Casts Complement C3 04/07/19 04/07/19 01:57 02:10 WBC RBC Hgb Hct MCV MCH MCHC RDW Plt Count MPV Neut % (Auto) Lymph % (Auto) Arthur % (Auto) Eos % (Auto) Baso % (Auto) Neut # (Auto) Lymph # (Auto) Arthur # (Auto) Eos # (Auto) Baso # (Auto) Neutrophils % (Manual) Lymphocytes % (Manual) Monocytes % (Manual) Platelet Estimate Polychromasia Hypochromasia (manual) Anisocytosis (manual) Microcytosis (manual) Sodium Potassium Chloride Carbon Dioxide Anion Gap BUN Creatinine Est GFR ( Amer) Est GFR (Non-Af Amer) POC Glucose (mg/dL) 376 H Random Glucose Hemoglobin A1c Calcium Phosphorus Magnesium Total Bilirubin AST ALT Alkaline Phosphatase C-Reactive Protein NT-Pro-B Natriuret Pep Total Protein Albumin Globulin Albumin/Globulin Ratio Procalcitonin Urine Color Yellow Urine Clarity Clear Urine pH 6.0 Ur Specific Humphrey 1.013 Urine Protein Negative Urine Glucose (UA) Normal Urine Ketones Negative Urine Blood Negative Urine Nitrate Negative Urine Bilirubin Negative Urine Urobilinogen Normal Ur Leukocyte Esterase Neg Urine WBC (Auto) < 1 Urine RBC (Auto) < 1 Ur Squamous Epith Cells < 1 Hyaline Casts 3-5 H Complement C3 Assessment & Plan - Assessment and Plan (Free Text) Plan: patient seen and evaluated personally by me. Plan of care d/w the medical data entry clerk and as documented
[2019-04-07] MEDS: Albuterol-Ipratrop 3 mg / 0.5 (3 ml) UD INH SCH ×3 (01:14→13:18)
[2019-04-07] MEDS: Acetaminophen-Codeine 300/30 mg Tab PO PRN ×2 (01:58→14:38)
[2019-04-07 02:05] LABS: SQUAMOUS EPITHIAL < 1 /hpf (0-5); URINE BILIRUBIN NEGATIVE (NEGATIVE); URINE BLOOD NEGATIVE (NEGATIVE); URINE CLARITY Clear (Clear); URINE COLOR Yellow (YELLOW); URINE GLUCOSE (UA) NORMAL (Normal); URINE LEUKOCYTE ESTERASE NEG Leu/uL (Negative); URINE PROTEIN NEGATIVE (NEGATIVE); URINE UROBILINOGEN NORMAL mg/dL (0.2-1.0)
[2019-04-07] MEDS: MethylPREDNISolone 40 mg Vial IVP SCH ×2 (06:01→14:15)
[2019-04-07 07:14] LABS: ALB/GLOB RATIO 1.1 (1.0-2.1); ALBUMIN 3.8 g/dL (3.5-5.0); ALT/SGPT 17 U/L (9-52); AST/SGOT 16 U/L (14-36); BLOOD UREA NITROGEN 19 mg/dL (7-17); CALCIUM 8.9 mg/dl (8.6-10.4); GFR NON-AFRICAN AMERICAN > 60
[2019-04-07 07:16] LABS: BASO % 0.3 % (0.0-2.0); HEMOGLOBIN 10.2 g/dL (11.0-16.0); LYMPH % 6.2 % (20.0-40.0); MEAN CELL VOLUME 80.3 fL (81.0-99.0); MEAN CORPUSCULAR HEMOGLOBIN 26.6 pg (27.0-31.0); MEAN CORPUSCULAR HGB CONC 33.1 g/dL (33.0-37.0); MEAN PLATELET VOLUME 7.9 fL (7.2-11.7); MONO # 0.4 K/uL (0.0-0.8); MONO % 2.6 % (0.0-10.0); NEUT # 14.1 K/uL (1.8-7.0); NEUT % 90.9 % (50.0-75.0); NRBC % 0.1 % (0.0-2.0); PLATELET COUNT 346 K/uL (130-400); RBC 3.82 Mil/uL (3.80-5.20); RED CELL DISTRIBUTION WIDTH 16.9 % (11.5-14.5); WHITE BLOOD COUNT 15.5 K/uL (4.8-10.8)
[2019-04-07] MEDS: (Novolin 70/30) NPH/Regular 70/30 Units/ml 10 ml vial SC SCH ×2 (08:42→17:16)
[2019-04-07] MEDS: (Novolin R) Insulin Human Regular 100 units/ml vial SC SCH ×3 (08:43→17:17)
[2019-04-07 09:53] LABS: LYMPHOCYTE 7 % (20-40); MONOCYTE 3 % (0-10); NEUTROPHIL 90 % (50-75); PLATELET ESTIMATE NORMAL (NORMAL); TOTAL CELLS COUNTED 100
[2019-04-07 09:54] LABS: ANISOCYTOSIS MODERATE; GIANT PLATELETS PRESENT; HYPOCHROMIC MODERATE; LARGE PLATELETS PRESENT; POLYCHROMIC SLIGHT
--- NOTE | 2019-04-07 12:41 | CP.PCM.DIS ---
<Obi Mackey - Last Filed: 04/07/19 15:24> Provider - Provider Date of Admission: 04/05/19 21:45 Attending physician: Toby Gill MD Primary care physician: Dr Willis, PMD Dr Jose Alberto Sesay, hospitalist Consults: 04/05/19 22:58 Cardiology Consult Routine Comment: Consulting Provider: Otilio Merrill Consulting Physician: Otilio Merrill Reason for Consult: dysnpnea on exertion 04/06/19 10:00 Social Work Referral Routine Comment: please eval Physician Instructions: Reason For Exam: vijaya scre=7 Time Spent in preparation of Discharge (in minutes): 42 Diagnosis - Discharge Diagnosis (1) COPD (chronic obstructive pulmonary disease) Status: Chronic Comment: Dyspnea most likely COPD exacerbation per Cardio. See hospital course for complete details (2) Diabetes Status: Chronic Comment: A1c 7.4; but BG poor control due to solumedrol (3) Hyperlipemia Status: Chronic Comment: chronic; home crestor continued (4) SLE (systemic lupus erythematosus) Status: Chronic Hospital Course - Lab Results Lab Results: Micro Results 04/05/19 21:00 Blood Blood Culture - Preliminary NO GROWTH AFTER 24 HOURS 04/05/19 20:45 Blood Blood Culture - Preliminary NO GROWTH AFTER 24 HOURS Most Recent Lab Values WBC 15.5 K/uL (4.8-10.8) H 04/07/19 06:47 RBC 3.82 Mil/uL (3.80-5.20) 04/07/19 06:47 Hgb 10.2 g/dL (11.0-16.0) L 04/07/19 06:47 Hct 30.7 % (34.0-47.0) L 04/07/19 06:47 MCV 80.3 fL (81.0-99.0) L 04/07/19 06:47 MCH 26.6 pg (27.0-31.0) L 04/07/19 06:47 MCHC 33.1 g/dL (33.0-37.0) 04/07/19 06:47 RDW 16.9 % (11.5-14.5) H 04/07/19 06:47 Plt Count 346 K/uL (130-400) 04/07/19 06:47 MPV 7.9 fL (7.2-11.7) 04/07/19 06:47 Neut % (Auto) 90.9 % (50.0-75.0) H 04/07/19 06:47 Lymph % (Auto) 6.2 % (20.0-40.0) L 04/07/19 06:47 [place] % (Auto) 2.6 % (0.0-10.0) 04/07/19 06:47 Eos % (Auto) 0.0 % (0.0-4.0) 04/07/19 06:47 Baso % (Auto) 0.3 % (0.0-2.0) 04/07/19 06:47 Neut # (Auto) 14.1 K/uL (1.8-7.0) H 04/07/19 06:47 Lymph # (Auto) 1.0 K/uL (1.0-4.3) 04/07/19 06:47 [place] # (Auto) 0.4 K/uL (0.0-0.8) 04/07/19 06:47 Eos # (Auto) 0.0 K/uL (0.0-0.7) 04/07/19 06:47 Baso # (Auto) 0.0 K/uL (0.0-0.2) 04/07/19 06:47 Neutrophils % (Manual) 90 % (50-75) H 04/07/19 06:47 Band Neutrophils % 2 % (0-2) 04/05/19 21:12 Lymphocytes % (Manual) 7 % (20-40) L 04/07/19 06:47 Monocytes % (Manual) 3 % (0-10) 04/07/19 06:47 Myelocytes % 1 % (0-0) H 04/05/19 21:12 Platelet Estimate Normal (NORMAL) 04/07/19 06:47 Large Platelets Present 04/07/19 06:47 Giant Platelets Present 04/07/19 06:47 Polychromasia Slight 04/07/19 06:47 Hypochromasia (manual) Moderate 04/07/19 06:47 Basophilic Stippling Slight 04/07/19 06:47 Anisocytosis (manual) Moderate 04/07/19 06:47 Microcytosis (manual) Slight 04/06/19 07:29 PT 12.9 SECONDS (9.7-12.2) H 04/05/19 21:12 INR 1.2 04/05/19 21:12 APTT 44.8 SECONDS (21-34) H 04/05/19 21:12 Puncture Site Rba 04/05/19 21:17 pCO2 47 mm/Hg (35-45) H 04/05/19 21:17 pO2 62 mm/Hg (80-100) L 04/05/19 21:17 HCO3 27.5 mmol/L (21-28) 04/05/19 21:17 ABG pH 7.40 (7.35-7.45) 04/05/19 21:17 ABG Total CO2 30.5 mmol/L (22-28) H 04/05/19 21:17 ABG O2 Saturation 92.8 % (95-98) L 04/05/19 21:17 ABG Base Excess 3.5 mmol/L (-2.0-3.0) H 04/05/19 21:17 Wilman Test Na 04/05/19 21:17 ABG Potassium 4.5 mmol/L (3.6-5.2) 04/05/19 21:17 Sodium 137.0 mmol/l (132-148) 04/05/19 21:17 Chloride 105.0 mmol/L (98-107) 04/05/19 21:17 Glucose 228 mg/dl (65-105) H 04/05/19 21:17 Lactate 1.9 mmol/L (0.7-2.1) 04/05/19 21:17 Liter Flow 0 04/05/19 21:17 Sodium 134 mmol/L (132-148) 04/07/19 06:47 Potassium 4.8 mmol/L (3.6-5.2) 04/07/19 06:47 Chloride 97 mmol/L (98-107) L 04/07/19 06:47 Carbon Dioxide 34 mmol/L (22-30) H 04/07/19 06:47 Anion Gap 9 (10-20) L 04/07/19 06:47 BUN 19 mg/dL (7-17) H 04/07/19 06:47 Creatinine 0.7 mg/dL (0.7-1.2) 04/07/19 06:47 Est GFR ( Amer) > 60 04/07/19 06:47 Est GFR (Non-Af Amer) > 60 04/07/19 06:47 POC Glucose (mg/dL) 411 mg/dL (65-110) H* 04/07/19 11:15 Random Glucose 326 mg/dL (65-105) H D 04/07/19 06:47 Hemoglobin A1c 7.4 % (4.2-6.5) H 04/06/19 07:29 Calcium 8.9 mg/dl (8.6-10.4) 04/07/19 06:47 Phosphorus 2.8 mg/dL (2.5-4.5) 04/07/19 06:47 Magnesium 2.4 mg/dL (1.6-2.3) H 04/07/19 06:47 Total Bilirubin 0.3 mg/dL (0.2-1.3) 04/07/19 06:47 AST 16 U/L (14-36) 04/07/19 06:47 ALT 17 U/L (9-52) 04/07/19 06:47 Alkaline Phosphatase 71 U/L (38-126) 04/07/19 06:47 Troponin I < 0.0120 ng/mL (0.00-0.120) 04/06/19 01:12 C-Reactive Protein 46.70 mg/L (0.0-9.9) H 04/06/19 07:29 NT-Pro-B Natriuret Pep 142 pg/mL (0-900) 04/06/19 07:29 Total Protein 7.4 g/dL (6.3-8.3) 04/07/19 06:47 Albumin 3.8 g/dL (3.5-5.0) 04/07/19 06:47 Globulin 3.6 gm/dL (2.2-3.9) 04/07/19 06:47 Albumin/Globulin Ratio 1.1 (1.0-2.1) 04/07/19 06:47 Procalcitonin 0.13 NG/ML (0.19-0.49) L 04/06/19 07:29 Arterial Blood Potassium 4.5 mmol/L (3.6-5.2) 04/05/19 21:17 Urine Color Yellow (YELLOW) 04/07/19 01:57 Urine Clarity Clear (Clear) 04/07/19 01:57 Urine pH 6.0 (5.0-8.0) 04/07/19 01:57 Ur Specific [place] 1.013 (1.003-1.030) 04/07/19 01:57 Urine Protein Negative mg/dL (NEGATIVE) 04/07/19 01:57 Urine Glucose (UA) Normal mg/dL (Normal) 04/07/19 01:57 Urine Ketones Negative mg/dL (NEGATIVE) 04/07/19 01:57 Urine Blood Negative (NEGATIVE) 04/07/19 01:57 Urine Nitrate Negative (NEGATIVE) 04/07/19 01:57 Urine Bilirubin Negative (NEGATIVE) 04/07/19 01:57 Urine Urobilinogen Normal mg/dL (0.2-1.0) 04/07/19 01:57 Ur Leukocyte Esterase Neg Elijah/uL (Negative) 04/07/19 01:57 Urine WBC (Auto) < 1 /hpf (0-5) 04/07/19 01:57 Urine RBC (Auto) < 1 /hpf (0-3) 04/07/19 01:57 Ur Squamous Epith Cells < 1 /hpf (0-5) 04/07/19 01:57 Hyaline Casts 3-5 /lpf (0-2) H 04/07/19 01:57 Complement C3 154.0 mg/dL (88.0-165.0) 04/06/19 07:29 - Hospital Course Hospital Course: On admission: Ms. Lee is a 58 year old female with a PMH lupus, rheumatoid arthritis, hypertension, COPD, depression/anxiety, diabetes, hyperlipidemia presents with a 2 day cough. Reports yellow sputum production and associated difficulty clearing the sputum. Reports SOB and GOMEZ but this is chronic. Pt was not treated for this yet, although she regularly follows up with Dr Willis and her specialist. Pt reported taking her pred taper as prescribed upon last dc. Denies chest pain, FC NV, blood in sputum, urine/stool changes, syncope, cyanosis, new medications. complains of chest tightness generalized pain. Hospital course: Patient admitted on 04/06/19 for persistent cough with yellow sputum in context of chronic dyspnea on exertion. CXR at admission showed moderate venous congestion, bilateral hilar prominence, patchy increased markings at left base w small pleural effusion. Patient started on Solumedrol IV Q8H. Started on Zosyn IV Q6H. Troponin negative at admission. Procal low. Cardio consulted for dyspnea on exertion. Pt had recent cath showing normal coronaries so they felt chronic dyspnea most likely due to COPD exacerbation. Patient continued on home DM insulin levels, Crestor for hyperlipidemia, Trazadone for insomnia. Home hydroxychloroquine continued for RA. Cymbalta continued for anxiety/depression. See full discharge instructions below: 1). Hx COPD/Asthma Excerbation Status: Acute States that she has enough of her Spiriva at home Uses and has home Oxygen Follows with Dr. Choi as an outpatient: she stated that she had to follow up with him this coming week for her CPAP machine as she had a sleep study done in February 2019 that indicated sleep apnea She will be discharge with Rx for Prednisone Taper 2). Hx Lupus Status: Chronic Hydroxycholorquin 200 mg PO 2x/day She has scheduled appointment with her [employer] Dr. Matos for 04/19/19 3). Hx RA Status: Chronic Methotrexate 15 mg PO once a week on Folic Acid 1 mg PO 1x/day She has scheduled appointment with her [employer] Dr. Matos for 01/23/19 4). Questionable Hx of CHF Status: Chronic This is actually questionable as Echocardiogram 01/12/19 did NOT indicate Heart Failure However patient was again on Digoxin 0.125 mg PO 1x/day and this was discontinued as this was recommended by Dr. Merrill upon admission in January 2019 She had a Cardiac Catheterization on 02/25/19 and this showed RCA 50-60% eccentric stenosis with NORMAL LV Systolic Function Recommended that she continue ASA 81 mg PO 1x/day and Crestor 10 mg PO HS as per Cardiology Dr. Merrill 5). Hx Hyperlipidemia Status: Chronic Crestor 10 mg PO HS 6). Hx Chronic Right LE DVT S/P IVC Filter Status: Chronic Patient stated that she had an IVC Filter placed at this institution many 8-9 years ago and was on Coumadin for 1 year and then was taken off of it She states that she is currently not on any anticoagulation for this issue and that her PMD Dr. Willis is aware 7). Hx Major Depression/Anxiety Status: Chronic Trazadone 100 mg PO HS Cymbalta 90 mg PO 1x/day Xanax 0.5 mg PO Q8H PRN Anxiety She states that she has an appointment with her Psychiatrist Dr. Wheeler on 04/12/19 8). Hx DM 1 Status: Chronic Explained to patient that the Novolog (70/30) that she was taking at home (10 units with breakfast and 3 units with dinner) was not enough I explained to her that I was sending her home on weight based Novolog (70/30) which would be 40 units with breakfast and 20 units with dinner and that new prescription for Novolog would be provided 9). Hx Nicotine Addiction Status: Resolved She states that her last cigarette was back in January 2019 before her admission at that time 10). Hx Anemia of Chronic Disease Status: Chronic Hgb/Hct are stable Likely secondary to the Hx of Lupus and RA 11). Leukocytosis Status: Acute NO fevers Vitals stable Likely secondary to the Solumedrol being used for the COPD Exacerbation Patient is requesting to stay in the hospital for one more day until her mother who is also admitted is discharged. I explained to patient that we discharged patients once they were medical stable for discharge (which she is) so as not to expose them to further infections which she would be more prone to due to her history of Lupus and RA and steroid use. She expressed understanding. The following instructions were explained to the patient and a copy will need to be provided to her upon discharge: 1). Follow up with your Psychiatrist Dr. Wheeler as scheduled for 04/12/19. 2). Follow up with your [employer] Dr. Bañuelos as scheduled for 04/19/19. 3). Follow up with your Lead [employer] Dr. Choi as planned for this coming week to make arrangments for your CPAP machine. 4). You stated that you had enough of all of your home medications. 5). Please STOP taking Digoxin. 6). Please have the following prescriptions filled at your pharmacy on your way home from the hospital. Please note the new Insulin doses. Please use the medications as instructed: Novolog (70/30), 40 units Subcutaneous with breakfast at 7:30 AM Novolog (70/30), 20 units Subcutaneous with dinner at 7:30 PM Prednisone 10 mg, 5 tablets by mouth all at once with breakfast 7:30 AM on 04/08/19 4 tablets by mouth all at once with breakfast 7:30 AM on 04/09/19 3 tablets by mouth all at once with breakfast 7:30 AM on 04/10/19 2 tablets by mouth all at once with breakfast 7:30 AM on 04/11/19 1 tablet by mouth all at once with breakfast 7:30 AM on 04/12/19 7). You should be taking Calcium Citrate 1,200 mg and Vitamin D 800 IU in a 24 hour period of time in divided doses. Please go to [facility] and purchase the Up and Up Brand Maximum Calcium Citrate and Vitamin D. You can ask the pharmacist there for help in finding this medication which you can purchase without a prescription. 8). You should not be taking the Tylenol Codeine that you have at home at the level that you are taking which is every 4 hours. This is a dangerous medication that can cause addiction and can further worsen your already compromised breathing. Please make sure that you speak about this issue with Dr. Bañuelos, whom you stated prescribed this for you can be weaned off of this medication and alternate pain medication can be used. 9). You must work towards losing weight as this is likely contributing to you health problems. I know that your knees are problem for you. If you can find a community pool or check with the local [facility] to see if they have a pool, swimming would be the best option for your to help you lose weight. Also follow up with your Primary Care Physician Dr. Willis in the next 7 to 10 days so that you may obtain referral for [employer] to help you lose weight. 10). Follow up with your Senior Media Director Dr. Merrill as instructed by him. 11). I am happy that you have stopped smoking. I wish you good luck and good health. You are stronger than you give yourself credit for. Follow up with your doctors, eat healthy foods, go to the park and spend some time outside, stay hydrated with water, and be happy as possible. Kip Sesay D.O. - Date & Time of H&P Date of H&P: 04/06/19 Time of H&P: 00:10 Discharge Exam - Head Exam Head Exam: ATRAUMATIC, NORMAL INSPECTION, NORMOCEPHALIC - Eye Exam Eye Exam: EOMI. absent: Scleral icterus Pupil Exam: NORMAL ACCOMODATION, PERRL - ENT Exam ENT Exam: Mucous Membranes Moist - Respiratory Exam Respiratory Exam: Wheezes (diffuse expiratory) Additional comments: speaks in full sentences, able to ambulate w/o difficulty - Cardiovascular Exam Cardiovascular Exam: REGULAR RHYTHM, +S1, +S2 - GI/Abdominal Exam GI & Abdominal Exam: Normal Bowel Sounds, Soft. absent: Distended, Guarding, Tenderness Additional comments: Excess body habitus noted - Extremities Exam Extremities exam: normal inspection - Back Exam Back exam: absent: CVA tenderness (L), CVA tenderness (R) - Neurological Exam Neurological exam: Alert, Oriented x3 - Psychiatric Exam Psychiatric exam: Normal Affect, Normal Mood - Skin Skin Exam: Dry, Normal Color Discharge Plan - Discharge Medications Prescriptions: Benzonatate [Tessalon Perles] 100 mg PO TID PRN #12 sgl PRN Reason: Cough Insulin NPH Hum/Reg Insulin Hm [Humulin 70/30 Kwikpen] 40 unit SC DAILY #1 insuln.pen Insulin NPH Hum/Reg Insulin Hm [Humulin 70/30 Kwikpen] 20 unit SQ DAILY #1 insuln.pen Prednisone 10 mg PO DAILY #15 tab.ds.pk - Follow Up Plan Condition: GOOD Disposition: HOME/ ROUTINE Instructions: Asthma, Adult (DC), Benzonatate, Prednisone Additional Instructions: The following instructions were explained to the patient and a copy will need to be provided to her upon discharge: 1). Follow up with your Psychiatrist Dr. Wheeler as scheduled for 04/12/19. 2). Follow up with your [employer] Dr. Bañuelos as scheduled for 04/19/19. 3). Follow up with your Lead [employer] Dr. Choi as planned for this coming week to make arrangments for your CPAP machine. 4). You stated that you had enough of all of your home medications. 5). Please STOP taking Digoxin. 6). Please have the following prescriptions filled at your pharmacy on your way home from the hospital. Please note the new Insulin doses. Please use the medications as instructed: Novolog (70/30), 40 units Subcutaneous with breakfast at 7:30 AM Novolog (70/30), 20 units Subcutaneous with dinner at 7:30 PM Prednisone 10 mg, 5 tablets by mouth all at once with breakfast 7:30 AM on 04/08/19 4 tablets by mouth all at once with breakfast 7:30 AM on 04/09/19 3 tablets by mouth all at once with breakfast 7:30 AM on 04/10/19 2 tablets by mouth all at once with breakfast 7:30 AM on 04/11/19 1 tablet by mouth all at once with breakfast 7:30 AM on 04/12/19 Tessalon Perles 100mg by mouth up to three times daily, Dispense #10 7). Please also take a daily Aspirin 81 mg 1 tablet by mouth with breakfast at 7:30 AM 8). You should be taking Calcium Citrate 1,200 mg and Vitamin D 800 IU in a 24 hour period of time in divided doses. Please go to [facility] and purchase the Up and Up Brand Maximum Calcium Citrate and Vitamin D. You can ask the pharmacist there for help in finding this medication which you can purchase without a prescription. 9). You should not be taking the Tylenol Codeine that you have at home at the level that you are taking which is every 4 hours. This is a dangerous medication that can cause addiction and can further worsen your already compromised breathing. Please make sure that you speak about this issue with Dr. Bañuelos, whom you stated prescribed this for you can be weaned off of this medication and alternate pain medication can be used. 10). You must work towards losing weight as this is likely contributing to you health problems. I know that your knees are problem for you. If you can find a community pool or check with the local [facility] to see if they have a pool, swimming would be the best option for your to help you lose weight. Also follow up with your Primary Care Physician Dr. Willis in the next 7 to 10 days so that you may obtain referral for [employer]er to help you lose weight. 11). Follow up with your Senior Media Director Dr. Merrill as instructed by him. 12). I am happy that you have stopped smoking. I wish you good luck and good health. You are stronger than you give yourself credit for. Follow up with your doctors, eat healthy foods, go to the park and spend some time outside, stay hydrated with water, and be happy as possible. Kip Sesay D.O. <Kip Sesay - Last Filed: 04/10/19 13:15> Provider - Provider Date of Admission: 04/05/19 21:45 Attending physician: Toby Gill MD Consults: 04/05/19 22:58 Cardiology Consult Routine Comment: Consulting Provider: Otilio Merrill Consulting Physician: Otilio Merrill Reason for Consult: dysnpnea on exertion 04/06/19 10:00 Social Work Referral Routine Comment: please eval Physician Instructions: Reason For Exam: vijaya scre=7 Hospital Course - Lab Results Lab Results: Micro Results 04/05/19 21:00 Blood Blood Culture - Preliminary NO GROWTH AFTER 4 DAYS 04/05/19 20:45 Blood Blood Culture - Preliminary NO GROWTH AFTER 4 DAYS Most Recent Lab Values WBC 15.5 K/uL (4.8-10.8) H 04/07/19 06:47 RBC 3.82 Mil/uL (3.80-5.20) 04/07/19 06:47 Hgb 10.2 g/dL (11.0-16.0) L 04/07/19 06:47 Hct 30.7 % (34.0-47.0) L 04/07/19 06:47 MCV 80.3 fL (81.0-99.0) L 04/07/19 06:47 MCH 26.6 pg (27.0-31.0) L 04/07/19 06:47 MCHC 33.1 g/dL (33.0-37.0) 04/07/19 06:47 RDW 16.9 % (11.5-14.5) H 04/07/19 06:47 Plt Count 346 K/uL (130-400) 04/07/19 06:47 MPV 7.9 fL (7.2-11.7) 04/07/19 06:47 Neut % (Auto) 90.9 % (50.0-75.0) H 04/07/19 06:47 Lymph % (Auto) 6.2 % (20.0-40.0) L 04/07/19 06:47 [place] % (Auto) 2.6 % (0.0-10.0) 04/07/19 06:47 Eos % (Auto) 0.0 % (0.0-4.0) 04/07/19 06:47 Baso % (Auto) 0.3 % (0.0-2.0) 04/07/19 06:47 Neut # (Auto) 14.1 K/uL (1.8-7.0) H 04/07/19 06:47 Lymph # (Auto) 1.0 K/uL (1.0-4.3) 04/07/19 06:47 [place] # (Auto) 0.4 K/uL (0.0-0.8) 04/07/19 06:47 Eos # (Auto) 0.0 K/uL (0.0-0.7) 04/07/19 06:47 Baso # (Auto) 0.0 K/uL (0.0-0.2) 04/07/19 06:47 Neutrophils % (Manual) 90 % (50-75) H 04/07/19 06:47 Band Neutrophils % 2 % (0-2) 04/05/19 21:12 Lymphocytes % (Manual) 7 % (20-40) L 04/07/19 06:47 Monocytes % (Manual) 3 % (0-10) 04/07/19 06:47 Myelocytes % 1 % (0-0) H 04/05/19 21:12 Platelet Estimate Normal (NORMAL) 04/07/19 06:47 Large Platelets Present 04/07/19 06:47 Giant Platelets Present 04/07/19 06:47 Polychromasia Slight 04/07/19 06:47 Hypochromasia (manual) Moderate 04/07/19 06:47 Basophilic Stippling Slight 04/07/19 06:47 Anisocytosis (manual) Moderate 04/07/19 06:47 Microcytosis (manual) Slight 04/06/19 07:29 PT 12.9 SECONDS (9.7-12.2) H 04/05/19 21:12 INR 1.2 04/05/19 21:12 APTT 44.8 SECONDS (21-34) H 04/05/19 21:12 Puncture Site Rba 04/05/19 21:17 pCO2 47 mm/Hg (35-45) H 04/05/19 21:17 pO2 62 mm/Hg (80-100) L 04/05/19 21:17 HCO3 27.5 mmol/L (21-28) 04/05/19 21:17 ABG pH 7.40 (7.35-7.45) 04/05/19 21:17 ABG Total CO2 30.5 mmol/L (22-28) H 04/05/19 21:17 ABG O2 Saturation 92.8 % (95-98) L 04/05/19 21:17 ABG Base Excess 3.5 mmol/L (-2.0-3.0) H 04/05/19 21:17 Wilman Test Na 04/05/19 21:17 ABG Potassium 4.5 mmol/L (3.6-5.2) 04/05/19 21:17 Sodium 137.0 mmol/l (132-148) 04/05/19 21:17 Chloride 105.0 mmol/L (98-107) 04/05/19 21:17 Glucose 228 mg/dl (65-105) H 04/05/19 21:17 Lactate 1.9 mmol/L (0.7-2.1) 04/05/19 21:17 Liter Flow 0 04/05/19 21:17 Sodium 134 mmol/L (132-148) 04/07/19 06:47 Potassium 4.8 mmol/L (3.6-5.2) 04/07/19 06:47 Chloride 97 mmol/L (98-107) L 04/07/19 06:47 Carbon Dioxide 34 mmol/L (22-30) H 04/07/19 06:47 Anion Gap 9 (10-20) L 04/07/19 06:47 BUN 19 mg/dL (7-17) H 04/07/19 06:47 Creatinine 0.7 mg/dL (0.7-1.2) 04/07/19 06:47 Est GFR ( Amer) > 60 04/07/19 06:47 Est GFR (Non-Af Amer) > 60 04/07/19 06:47 POC Glucose (mg/dL) 378 mg/dL (65-110) H 04/07/19 16:01 Random Glucose 326 mg/dL (65-105) H D 04/07/19 06:47 Hemoglobin A1c 7.4 % (4.2-6.5) H 04/06/19 07:29 Calcium 8.9 mg/dl (8.6-10.4) 04/07/19 06:47 Phosphorus 2.8 mg/dL (2.5-4.5) 04/07/19 06:47 Magnesium 2.4 mg/dL (1.6-2.3) H 04/07/19 06:47 Total Bilirubin 0.3 mg/dL (0.2-1.3) 04/07/19 06:47 AST 16 U/L (14-36) 04/07/19 06:47 ALT 17 U/L (9-52) 04/07/19 06:47 Alkaline Phosphatase 71 U/L (38-126) 04/07/19 06:47 Troponin I < 0.0120 ng/mL (0.00-0.120) 04/06/19 01:12 C-Reactive Protein 46.70 mg/L (0.0-9.9) H 04/06/19 07:29 NT-Pro-B Natriuret Pep 142 pg/mL (0-900) 04/06/19 07:29 Total Protein 7.4 g/dL (6.3-8.3) 04/07/19 06:47 Albumin 3.8 g/dL (3.5-5.0) 04/07/19 06:47 Globulin 3.6 gm/dL (2.2-3.9) 04/07/19 06:47 Albumin/Globulin Ratio 1.1 (1.0-2.1) 04/07/19 06:47 Procalcitonin 0.13 NG/ML (0.19-0.49) L 04/06/19 07:29 Arterial Blood Potassium 4.5 mmol/L (3.6-5.2) 04/05/19 21:17 Urine Color Yellow (YELLOW) 04/07/19 01:57 Urine Clarity Clear (Clear) 04/07/19 01:57 Urine pH 6.0 (5.0-8.0) 04/07/19 01:57 Ur Specific [place] 1.013 (1.003-1.030) 04/07/19 01:57 Urine Protein Negative mg/dL (NEGATIVE) 04/07/19 01:57 Urine Glucose (UA) Normal mg/dL (Normal) 04/07/19 01:57 Urine Ketones Negative mg/dL (NEGATIVE) 04/07/19 01:57 Urine Blood Negative (NEGATIVE) 04/07/19 01:57 Urine Nitrate Negative (NEGATIVE) 04/07/19 01:57 Urine Bilirubin Negative (NEGATIVE) 04/07/19 01:57 Urine Urobilinogen Normal mg/dL (0.2-1.0) 04/07/19 01:57 Ur Leukocyte Esterase Neg Elijah/uL (Negative) 04/07/19 01:57 Urine WBC (Auto) < 1 /hpf (0-5) 04/07/19 01:57 Urine RBC (Auto) < 1 /hpf (0-3) 04/07/19 01:57 Ur Squamous Epith Cells < 1 /hpf (0-5) 04/07/19 01:57 Hyaline Casts 3-5 /lpf (0-2) H 04/07/19 01:57 Double Strand DNA Ab 1 IU/mL 04/06/19 07:29 Complement C3 154.0 mg/dL (88.0-165.0) 04/06/19 07:29 Attending/Attestation - Attestation I have personally seen and examined this patient.: Yes I have fully participated in the care of the patient.: Yes I have reviewed all pertinent clinical information, including history, physical exam and plan: Yes Notes (Text): 04/10/19 13:14 This is a late entry. Care of this patient was gone over in detail with Dr. Dawit Mackey. Kip Sesay D.O.
--- NOTE | 2019-04-07 14:47 | CP.PCM.PCO ---
Physician Communication Note - Physician Communication Note Physician Communication Note: Please see above
[2019-04-07 15:37] VITALS: BP 169/77; PULSE 96; TEMP 97.9; O2SAT 95
== END 2019-04-07 20:15 | disposition home or self-care (01) | DRG 541 ==
LOC: C.ER 19:47 → C.9E 21:45 → C.3T 22:03
PROVIDERS: ADMIT Emergency Medicine; ATTEND Emergency Medicine
DX: J43.9 Emphysema, unspecified (principal); J18.9 Pneumonia, unspecified organism; I11.0 Hypertensive heart disease with heart failure; I50.9 Heart failure, unspecified; M32.9 Systemic lupus erythematosus, unspecified; I82.501 Chronic embolism and thrombosis of unspecified deep veins of right lower extremity; J45.901 Unspecified asthma with (acute) exacerbation; F41.9 Anxiety disorder, unspecified; G47.00 Insomnia, unspecified; G47.30 Sleep apnea, unspecified; M06.9 Rheumatoid arthritis, unspecified; Z79.4 Long term (current) use of insulin; Z95.828 Presence of other vascular implants and grafts; Z99.81 Dependence on supplemental oxygen; E66.9 Obesity, unspecified; Z68.41 Body mass index [BMI] 40.0-44.9, adult; E78.5 Hyperlipidemia, unspecified; D63.8 Anemia in other chronic diseases classified elsewhere; F31.9 Bipolar disorder, unspecified; F17.200 Nicotine dependence, unspecified, uncomplicated; E10.9 Type 1 diabetes mellitus without complications